=== PATIENT | female | born 1965 | race Caucasian/White ===

== ENCOUNTER 2016-03-19 11:47 | Emergency (ER) | payer MEDICARE, MEDICAID ==
--- NOTE | 2016-03-19 12:40 | REP ---
CT Head without contrast HISTORY: Infarction COMPARISON: 11/28/2015 There is no intraparenchymal hemorrhage, acute infarct, or midline shift. The ventricular system is normal in appearance. There is no extra cerebral collection. The 9 mm meningioma overlying the left frontal lobe at the vertex is not seen in the present examination. There is no fracture. The visualized sinuses are clear. IMPRESSION: There is no acute intracranial lesion. Signed by Grant Grajeda MD 03/19/2016 12:31 P
[2016-03-19] MEDS ORDERED: METOCLOPRAMIDE INJ 10MG/2ML VIAL (J2765) As Ordered ONE (12:44)
[2016-03-19] MEDS ORDERED: diphenhydrAMINE INJ 50MG/ML VIAL (J1200) As Ordered ONE (12:45)
[2016-03-19 12:50] LABS: VENOUS BASE EXCESS -2.4 (-2.0-2.0); VENOUS O2 SATURATION 96.3 % (60.0-80.0); VENOUS PARTIAL PRESSURE CO2 35.1 mmHg (38.0-50.0); VENOUS PARTIAL PRESSURE O2 78.9 mmHg (30.0-50.0); VENOUS STANDARD HCO3 22.5 MEQ/L; VENOUS TOTAL CO2 22.7 MEQ/L (24.0-28.0)
[2016-03-19 12:58] LABS: BASO # 0.1 K/mm3 (0.0-0.2); BASO % 1.1 % (0.0-1.0); EOS # 0.4 K/mm3 (0.0-0.50); EOS % 5.7 % (0.0-3.0); LARGE UNSTAINED CELL # 0.1 K/mm3 (0.0-0.4); LARGE UNSTAINED CELL % 1.6 % (0.0-4.0); LYMPH # 1.9 K/mm3 (1.5-4.5); LYMPH % 28.2 % (24.0-44.0); MEAN CORPUSCULAR HEMOGLOBIN 30.8 pg (27.0-33.0); MEAN CORPUSCULAR HGB CONC 32.2 g/dl (32.0-36.5); MEAN CORPUSCULAR VOLUME 95.8 fl (80.0-96.0); MONO # 0.3 K/mm3 (0.0-0.8); MONO % 4.3 % (0.0-5.0); NEUTROPHILS # 3.8 K/mm3 (1.8-7.7); NEUTROPHILS % 59.1 % (36.0-66.0); PLATELET COUNT, AUTOMATED 230 k/mm3 (150-450); RED CELL DISTRIBUTION WIDTH 12.8 % (11.5-14.5); WHITE BLOOD COUNT 6.5 K/mm3 (4.0-10.0)
[2016-03-19 13:18] LABS: ANION GAP 7 MEQ/L (8-16); BLOOD UREA NITROGEN 15 MG/DL (7-18); CALCIUM LEVEL 8.3 MG/DL (8.5-10.1); CARBON DIOXIDE LEVEL 24 MEQ/L (21-32); CHLORIDE LEVEL 104 MEQ/L (98-107); CREATININE FOR GFR 0.88 MG/DL (0.55-1.02); GLOMERULAR FILTRATION RATE > 60.0 (>51); POTASSIUM SERUM 4.2 MEQ/L (3.5-5.1); SODIUM LEVEL 135 MEQ/L (136-145)
[2016-03-19 13:23] LABS: GLUCOSE, FASTING 463 MG/DL (70-105)
[2016-03-19] MEDS ORDERED: MAGNESIUM SULFATE 1 GM/100 ML D5W BAG (10MG/ML) (J3475) As Ordered ONE (13:59)
--- NOTE | 2016-03-19 16:48 | REP ---
MRA BRAIN WITHOUT CONTRAST: HISTORY: Left hemiparesis. Comparison: 11/28/2015 3D [id number] MR angiography was performed at the level of the [place] of [place]. There is no aneurysm, arteriovenous malformation or atherosclerotic lesion. Major intracranial vessels are patent. The vertebral arteries are equal in size and patent. IMPRESSION:Normal MRA brain. Signed by Grant Grajeda MD 03/19/2016 04:58 P
--- NOTE | 2016-03-19 16:52 | REP ---
MR BRAIN WITHOUT CONTRAST: HISTORY: Left hemiparesis. COMPARISON: MR 11/28/[address] 03/19/2016. There are no areas of abnormal signal intensity in the brain. There is no intraparenchymal hemorrhage, infarct mass or midline shift. The ventricular system is normal in appearance. There is no extracerebral collection. A small meningoma is present overlying the left frontal lobe at the vertex. The meningoma measures 9 mm in transverse x 9 mm in AP dimensions and is unchanged in its size compared to the previous study. Minimal mucosal thickening is present in the left sphenoid sinus. IMPRESSION:1. There is no acute intracranial lesion. 2. There has been no change in size of the small meningioma overlying the left frontal lobe at the vertex. Signed by Grant Grajeda MD 03/19/2016 04:54 P
--- NOTE | 2016-03-19 17:29 | REP ---
MRA carotid without and with contrast: History: Infarction. Contrast: ProHance, 25 mL. Comparison: 08/06/2011 Unenhanced 2D TOF and contrast enhanced MR angiography were performed at the level of the carotid bifurcations. The distal common carotid arteries and origins of the external and internal carotid arteries are normal. There is no carotid stenosis. Moderate atherosclerotic disease involves the proximal vertebral arteries. The vertebral arteries are equal in size and patent. IMPRESSION: 1. There is no carotid stenosis, 2. Moderate atherosclerotic disease involves the proximal vertebral arteries. Signed by Grant Grajeda MD 03/20/2016 08:04 A
[2016-03-19] MEDS ORDERED: HumuLIN R (REGULAR) INSULIN (NovoLIN R) **100U/ML** PER UNIT As Ordered ONE (18:03)
--- NOTE | 2016-03-19 18:27 | EDDOCDS ---
Physician Documentation [facility] Name: Alia Sierra Age: 50 yrs Sex: Female : 1965 Arrival Date: 03/19/2016 Time: 11:47 Bed 15 Private MD: Nubia Ervin D Disposition: 03/19 18:13 Critical Care: Critical care not applicable. le Disposition: 03/19/16 18:11 Discharged to Home/Self Care. Impression: Hemiplegic migraine, not intractable, Type 1 diabetes mellitus with hyperglycemia, Diarrhea, unspecified. - Condition is Stable. - Discharge Instructions: Food Choices to Help Relieve Diarrhea, Adult, Diabetes and Sick Day Management, Diarrhea, Migraine Headache, Hyperglycemia. - Medication Reconciliation, Local Pharmacy Hours form. - Follow up: Nubia Ervin; When: Call to arrange an appointment; Reason: Recheck today's complaints, Continuance of care. Follow up: Rosalio Bejarano; When: Keep your scheduled appointment on 04/04; Reason: Recheck today's complaints, Continuance of care. - Problem is new. - Symptoms have improved. - Notes: Keep hydrated Check your blood sugar as soon as you get home and at bedtime, then per normal Return to the ED for any further concerns Historical: - Allergies: adhesive tape-silicones (Rash); Can't have steroids because it makes her go into DKA.; - Home Meds: 1. albuterol sulfate 90 mcg/actuation Inhl HFAA 1 puff every 4-6 hours as needed 2. amitriptyline 25 mg Oral tab 1 tab nightly 3. ammonium lactate 12 % Topical crea twice a day to bilateral feet 4. aspirin 81 mg Oral TbEC 1 tab once daily 5. buspirone 15 mg Oral tab 1 tab 2 times per day 6. ferrous sulfate 325 mg (65 mg iron) Oral tab daily 7. gabapentin 600 mg Oral tab 1 tab 3 times per day as needed 8. GlucaGen HypoKit 1 mg injection solr as needed 9. Humalog 100 unit/mL Sub-Q soln sliding scale three - six times daily 10. Lantus 100 unit/mL Sub-Q soln 26 unit daily 11. levalbuterol HCl 0.63 mg/3 mL inhalation nebu 3 mL every 8 hours as needed 12. lidocaine 5 % Topical ptmd 1 patch once daily 13. lisinopril 10 mg Oral tab 1 tab once daily 14. loratadine 10 mg Oral tab 1 tab nightly 15. Miralax 17 gram Oral pwpk 1 packet once daily as needed 16. omeprazole 40 mg oral cpDR 2 times per day 17. paroxetine HCl 40 mg Oral tab 1 tab once daily 18. Percocet 7.5-325 mg Oral tab 1 tab every 6 hours as needed 19. propranolol 20 mg Oral tab 1 tab 2 times per day 20. Reglan 10 mg Oral tab 1 tab three times a day 21. Singulair 10 mg Oral tab 1 tab once daily 22. sumatriptan succinate 6 mg/0.5 mL Sub-Q soln 0.5 mL as needed 23. trazodone 150 mg Oral tab 1 tab nightly 24. Zanaflex 4 mg Oral tab 1 tab every 8 hours as needed 25. Zofran (as hydrochloride) 4 mg Oral tab 2 tabs as needed - PMHx: Anxiety; Arthritis; Asthma; Celiac disease; Diabetes - IDDM: uncontrolled; Heart Murmur; Migraine Headaches; pseudo seizures; TIA; - PSHx: ; Appendectomy; Hiatal Hernia Repair; Bariatric Sleeve; Hysterectomy; Carpal Tunnel Repair- Bilateral; Deviated Septum Surgery; - Social history: Smoking status: Patient states former smoker of tobacco. No barriers to communication noted, The patient speaks fluent Thai, Speaks appropriately for age. - Family history: Not pertinent. - : The pt / caregiver states he / she is not on anticoagulants. Home medication list is obtained from the patient. - Exposure Risk Screening:: None identified. Vital Signs: 11:50 BP 153 / 90; Pulse 61; Resp 20; Temp 100.2(O); Pulse Ox 99% on R/A; Weight 76.2 kg / elp 167.99 lbs (R); Height 5 ft. 4 in. (162.56 cm) (R); Pain 8/10; 12:33 BP 145 / 80 (auto/); ead 12:35 Pulse 62 MON; Resp 18; Pulse Ox 96% on R/A; ead 18:13 BP 129 / 71 (auto/); ead 18:13 Pulse 70 MON; Resp 16; Temp 97.3; Pulse Ox 96% on R/A; Pain 5/10; ead 11:50 Body Mass Index 28.84 (76.20 kg, 162.56 cm) elp MDM: 12:15 Cook Fishing Vessel/Pulse Ox/q 15 min VS ordered. le 12:15 Accucheck ordered. le 12:15 IV Saline Lock ordered. le 12:15 Rhythm Strip to chart ordered. le 12:15 -Blood Culture (Adults Only), peripheral from different site, or from device/port/PICC le etc. if present ordered. 12:16 Basic Metabolic Profile Ordered. EDMS 12:16 CBC with Diff Ordered. EDMS 12:16 UA Ordered. EDMS 12:16 Acetone Level Ordered. EDMS 12:16 Venous Blood Gas (large pea green tube on ice) Ordered. EDMS 12:16 -Blood Culture Ordered. EDMS 12:17 Chest, 2 View (pa\E\lat) Ordered. EDMS 12:17 CT Head Without Contrast Ordered. EDMS 12:17 ECG WITH READING ER PHYS+CARDIAG ordered. EDMS 12:18 -Blood Culture (Adults Only), peripheral from different site, or from device/port/PICC lbd etc. if present complete. 12:20 BLOOD CULTURES Ordered. EDMS 12:35 NS 0.9% 1000 ml IV at bolus once ordered. le 12:36 diphenhydrAMINE 25 mg IVP once ordered. le 12:36 Metoclopramide 20 mg IV at 80 mg/hr once over 15 mins ordered. le 12:57 [facility] Payment Agreement was scanned into [employer] and attached to record. jp5 12:58 Financial registration complete. jp5 13:24 CBC with Diff Reviewed. le 13:24 Venous Blood Gas (large pea green tube on ice) Reviewed. le 13:24 CT Head Without Contrast Reviewed. le 13:26 Acetone Level Reviewed. le 13:26 Basic Metabolic Profile Reviewed. le 13:32 MRI Screening Tool - Place on chart, inform RN ordered. le 13:33 -MRA-Brain without contrast Ordered. EDMS 13:33 -MRI-Brain without Ordered. EDMS 13:40 MRA CAROTID W/O FOL WITH Ordered. EDMS 13:53 UA Reviewed. le 13:55 Magnesium Sulfate in D5W 2 grams IV at bolus once ordered. le 13:55 Accucheck ordered. le 14:01 MRI Screening Tool - Place on chart, inform RN complete. lbd 14:32 Fingerstick Blood Sugar Ordered. EDMS 17:11 CONSISTENT CARBOHYDRATE+DIET ordered. EDMS 17:14 Accucheck ordered. le 17:56 Fingerstick Blood Sugar Reviewed. le 17:56 -MRA-Brain without contrast Reviewed. le 17:56 -MRI-Brain without Reviewed. le 18:04 Insulin Regular Human 10 units Sub-Q once ordered. le Point of Care Testing: Blood Glucose: 14:25 Blood Glucose: 391 mg/dL; ead Ranges: Administered Medications: 12:53 Drug: diphenhydrAMINE 25 mg [diphenhydramine 50 mg/mL injection solution (0.5 mL)] ead Route: IVP; Site: right hand; 13:30 Follow up: Response: No Adverse Reaction; No significant change. ead 12:55 Drug: Metoclopramide 20 mg [metoclopramide 5 mg/mL injection solution] Route: IV; Rate: ead 80 mg/hr; Infused Over: 15 mins; Site: right hand; 13:30 Follow up: Response: No Adverse Reaction; No significant change.; IV Status: Completed ead infusion; IV Intake: 10ml 12:56 Drug: NS 0.9% 1000 ml [sodium chloride 0.9 % intravenous solution] Route: IV; Rate: ead bolus; Site: right hand; 14:19 Drug: Magnesium Sulfate in D5W 2 grams [magnesium sulfate 1 gram/100 mL in dextrose 5 % jc4 intravenous piggyback] Route: IV; Rate: bolus; Site: right hand; 15:23 Follow up: IV Status: Completed infusion; IV Intake: 100ml ; 1 gram completed infusion. ead second bag of 1 gram now infusing over 1 hour 18:18 Follow up: IV Status: Completed infusion; IV Intake: 100ml ; 2nd 1 gram bag completed ead infusion 18:04 CANCELLED (Other Intervention Used): Insulin Regular Human 10 units IVP once le 18:04 CANCELLED (Patient Refused): NS 0.9% 1000 ml IV at bolus once le 18:10 Drug: Insulin Regular Human 10 units [insulin regular human 100 unit/mL injection ead solution (0.1 mL)] {Co-Signature: [id number] (Radha Firoe RN).} Route: Sub-Q; Site: right upper arm; Signatures: Dispatcher [employer] EDAlisha Cosby, Strong Nitric Operator Unit lbd Agustín Ramos RN RN [id number] Lisa Delong, MANGLE ROLL OPERATOR MANGLE ROLL OPERATOR Suzie Rivas,RN RN Cristian Gallo jp5 Sophia Chester RN [id number] Radha Fiore RN [id number] The chart was reviewed and I authenticate all verbal orders and agree with the evaluation and treatment provided.Corrections: (The following items were deleted from the chart) 13:39 13:33 MRA-Carotid with contrast+MR ordered. EDMS EDMS 18:04 18:01 [employer] ordered. le le 18:04 18:01 Insulin Regular Human 10 units IVP once ordered. le le 18:04 18:01 NS 0.9% 1000 ml IV at bolus once ordered. le le Attachments: 12:57 [facility] [place] Agreement jp5 MTDD
--- NOTE | 2016-03-19 18:27 | EDDOCDS ---
Nurse's Notes [facility] Name: Alia Sierra Age: 50 yrs Sex: Female : 1965 Arrival Date: 03/19/2016 Time: 11:47 Bed 15 Private MD: Nubia Ervin D Diagnosis: Hemiplegic migraine, not intractable;Type 1 diabetes mellitus with hyperglycemia;Diarrhea, unspecified Presentation: 03/19 11:51 Presenting complaint: Patient states: Diarrhea since , awoke with headache and mlb1 left side paralysis this am states paralysis resolved at 0630n this reports diarrhea and headache remain FSBS HI since . The last date and time the patient was known to be well was was at 11:53 on March 19, 2016. No acute neurological deficit is noted. Pre-hospital glucose is not applicable to this patient. Adult Sepsis Screening: The patient does not have new or worsening altered mentation. Patient's respiratory rate is less than 22. Systolic blood pressure is greater than 100. Patient has a qSOFA score of 0- Negative Sepsis Screen. 11:51 Acuity: LI Level 3 mlb1 11:51 Method Of Arrival: Walkin/Carried/Asstd mlb1 11:54 Suicide/Homicide risk assessment- the patient denies having any suicidal and/or mlb1 homicidal ideations and does not present with any other emotional, behavioral or mental health complaints. Status: Patient is not a pump servicer or dependent. Transition of care: patient was received from a primary care office; Dr. Izquierdo . Triage Assessment: 11:59 The onset of the patients symptoms was more than three hours ago. General: Appears in mlb1 no apparent distress, Behavior is anxious, cooperative. Pain: Location: head Pain currently is 8 out of 10 on a pain scale. HIV screening NA for this visit Offered previously. Neurological: Level of Consciousness is awake, alert, Oriented to person, place, time, Moves all extremities. Full function Speech is normal, Facial symmetry appears normal, Facial symmetry: tongue is midline, Reports headache. Historical: - Allergies: adhesive tape-silicones (Rash); Can't have steroids because it makes her go into DKA.; - Home Meds: 1. albuterol sulfate 90 mcg/actuation Inhl HFAA 1 puff every 4-6 hours as needed 2. amitriptyline 25 mg Oral tab 1 tab nightly 3. ammonium lactate 12 % Topical crea twice a day to bilateral feet 4. aspirin 81 mg Oral TbEC 1 tab once daily 5. buspirone 15 mg Oral tab 1 tab 2 times per day 6. ferrous sulfate 325 mg (65 mg iron) Oral tab daily 7. gabapentin 600 mg Oral tab 1 tab 3 times per day as needed 8. GlucaGen HypoKit 1 mg injection solr as needed 9. Humalog 100 unit/mL Sub-Q soln sliding scale three - six times daily 10. Lantus 100 unit/mL Sub-Q soln 26 unit daily 11. levalbuterol HCl 0.63 mg/3 mL inhalation nebu 3 mL every 8 hours as needed 12. lidocaine 5 % Topical ptmd 1 patch once daily 13. lisinopril 10 mg Oral tab 1 tab once daily 14. loratadine 10 mg Oral tab 1 tab nightly 15. Miralax 17 gram Oral pwpk 1 packet once daily as needed 16. omeprazole 40 mg oral cpDR 2 times per day 17. paroxetine HCl 40 mg Oral tab 1 tab once daily 18. Percocet 7.5-325 mg Oral tab 1 tab every 6 hours as needed 19. propranolol 20 mg Oral tab 1 tab 2 times per day 20. Reglan 10 mg Oral tab 1 tab three times a day 21. Singulair 10 mg Oral tab 1 tab once daily 22. sumatriptan succinate 6 mg/0.5 mL Sub-Q soln 0.5 mL as needed 23. trazodone 150 mg Oral tab 1 tab nightly 24. Zanaflex 4 mg Oral tab 1 tab every 8 hours as needed 25. Zofran (as hydrochloride) 4 mg Oral tab 2 tabs as needed - PMHx: Anxiety; Arthritis; Asthma; Celiac disease; Diabetes - IDDM: uncontrolled; Heart Murmur; Migraine Headaches; pseudo seizures; TIA; - PSHx: ; Appendectomy; Hiatal Hernia Repair; Bariatric Sleeve; Hysterectomy; Carpal Tunnel Repair- Bilateral; Deviated Septum Surgery; - Social history: Smoking status: Patient states former smoker of tobacco. No barriers to communication noted, The patient speaks fluent Armenian, Speaks appropriately for age. - Family history: Not pertinent. - : The pt / caregiver states he / she is not on anticoagulants. Home medication list is obtained from the patient. - Exposure Risk Screening:: None identified. Screenin:26 Screening information is obtained from the patient. Fall risk: No risks identified. ead Assistance ADL's: requires no assistance with activities of daily living. Abuse/DV Screen: The patient / caregiver reports he/she is: not in a situation that causes fear, pain or injury. Nutritional screening: No deficits noted. home support is adequate. Assessment: 12:19 General: pt to CT via stretcher per strain technician. ead 12:56 General: Appears in no apparent distress, comfortable, well nourished, well groomed, ead Behavior is appropriate for age, cooperative, pleasant. Pain: Location: face Pain currently is 8 out of 10 on a pain scale. Neurological: Level of Consciousness is awake, alert, obeys commands, Oriented to person, place, time, Moves all extremities. Speech is normal, Facial symmetry appears normal, Numbness in left arm. Cardiovascular: Capillary refill < 3 seconds Rhythm is sinus rhythm No ectopy. Chest pain is denied. Respiratory: Airway is patent Respiratory effort is even, unlabored, Respiratory pattern is regular, symmetrical. Derm: Skin is pink, warm & dry. 13:12 General: pt ambulated to bathroom without difficulty. pt instructed to collect urine ead for UA. Gait is steady, strength is even bilaterally. . 14:00 General: Appears in no apparent distress, comfortable, Behavior is appropriate for age, ead cooperative. Neurological: Reports headache. Respiratory: Airway is patent Respiratory effort is even, unlabored. Derm: Skin is pink, warm & dry. 15:00 General: Appears in no apparent distress, comfortable, Behavior is appropriate for age, ead cooperative. Neurological: Level of Consciousness is awake, alert, obeys commands, Oriented to person, place, time. Respiratory: Airway is patent Respiratory effort is even, unlabored. Derm: Skin is pink, warm & dry. 17:30 General: Appears in no apparent distress, comfortable, Behavior is appropriate for age, ead cooperative. Respiratory: Airway is patent Respiratory effort is even, unlabored. Derm: Skin is pink, warm & dry. 18:25 General: Appears in no apparent distress, comfortable, Behavior is appropriate for age, ead cooperative. Neurological: Level of Consciousness is awake, alert, obeys commands, Oriented to person, place, time. Respiratory: Airway is patent Respiratory effort is even, unlabored, Respiratory pattern is regular, symmetrical, Denies shortness of breath. Derm: Skin is pink, warm & dry. Vital Signs: 11:50 BP 153 / 90; Pulse 61; Resp 20; Temp 100.2(O); Pulse Ox 99% on R/A; Weight 76.2 kg (R); elp Height 5 ft. 4 in. (162.56 cm) (R); Pain 8/10; 12:33 BP 145 / 80 (auto/); ead 12:35 Pulse 62 MON; Resp 18; Pulse Ox 96% on R/A; ead 18:13 BP 129 / 71 (auto/); ead 18:13 Pulse 70 MON; Resp 16; Temp 97.3; Pulse Ox 96% on R/A; Pain 5/10; ead 11:50 Body Mass Index 28.84 (76.20 kg, 162.56 cm) elp Vitals: 11:50 Log In Time: March 19, 2016 at 11:48. RN notified that patient meets Red Flag elp criteria. ED Course: 11:49 Patient visited by Cara Abebe PCA. elp 11:49 Patient moved to Waiting elp 11:50 Nubia Ervin is Private Physician. elp 11:51 Patient visited by Cara Abebe PCA. elp 11:51 Patient visited by Agustín Ramos, JOSEE. mlb1 11:51 Patient moved to Pre RCE elp 11:54 Triage Initiated mlb1 12:00 Patient visited by Agustín Ramos, JOSEE. mlb1 12:00 Suzie Singh,JOSEE is Primary Nurse. mlb1 12:00 Patient moved to 15 mlb1 12:06 [facility]. le 12:15 Patient visited by Lisa Delong FNP. le 12:15 Patient visited by Lisa Delong FNP. le 12:34 air sampling and monitoring on. Pulse ox on. NIBP on. lr2 12:34 EKG done. (by ED staff). lr2 12:35 Patient visited by Ariadne Lucia. lr2 12:40 Inserted peripheral IV: 20gauge IV in right hand and blood collected. Patient tolerated ead the procedure well. 12:43 -Blood Culture Sent. ead 12:43 Venous Blood Gas (large pea green tube on ice) Sent. ead 12:43 Acetone Level Sent. ead 12:43 CBC with Diff Sent. ead 12:43 Basic Metabolic Profile Sent. ead 12:55 Patient visited by Suzie Singh,JOSEE. ead 12:56 Patient visited by Ariadne Lucia. lr2 12:56 BLOOD CULTURES Sent. ead 12:57 [facility] [place] Agreement was scanned into Cardiac Guard and attached to record. jp5 13:12 Patient visited by Suzie Singh RN. ead 13:12 CT Head Without Contrast Returned. EDMS 13:21 UA Sent. ead 13:49 Patient visited by Lisa Delong FNP. le 14:26 Patient visited by Suzie Singh,JOSEE. ead 15:19 Patient visited by Suzie Singh,JOSEE. ead 16:00 Patient moved to MRI ead 16:01 Patient visited by Suzie Singh,JOSEE. ead 16:56 Patient visited by Suzie Singh,JOSEE. ead 16:56 Patient moved to 15 ead 17:20 -MRA-Brain without contrast Returned. EDMS 17:20 -MRI-Brain without Returned. EDMS 17:54 Patient visited by Suzie Singh,JOSEE. ead 18:10 Nubia Ervin is Referral Physician. le 18:10 Rosalio Bejarano is Referral Physician. le 18:14 MRA CAROTID W/O FOL WITH Returned. EDMS 18:24 Discontinued lock intact, bleeding controlled, pressure dressing applied, No ead redness/swelling at site. No procedures done that require assistance. 18:26 The patient / caregiver is instructed regarding the plan of care and ED course. ead Administered Medications: 12:53 Drug: diphenhydrAMINE 25 mg [diphenhydramine 50 mg/mL injection solution (0.5 mL)] ead Route: IVP; Site: right hand; 13:30 Follow up: Response: No Adverse Reaction; No significant change. ead 12:55 Drug: Metoclopramide 20 mg [metoclopramide 5 mg/mL injection solution] Route: IV; Rate: ead 80 mg/hr; Infused Over: 15 mins; Site: right hand; 13:30 Follow up: Response: No Adverse Reaction; No significant change.; IV Status: Completed ead infusion; IV Intake: 10ml 12:56 Drug: NS 0.9% 1000 ml [sodium chloride 0.9 % intravenous solution] Route: IV; Rate: ead bolus; Site: right hand; 14:19 Drug: Magnesium Sulfate in D5W 2 grams [magnesium sulfate 1 gram/100 mL in dextrose 5 % jc4 intravenous piggyback] Route: IV; Rate: bolus; Site: right hand; 15:23 Follow up: IV Status: Completed infusion; IV Intake: 100ml ; 1 gram completed infusion. ead second bag of 1 gram now infusing over 1 hour 18:18 Follow up: IV Status: Completed infusion; IV Intake: 100ml ; 2nd 1 gram bag completed ead infusion 18:04 CANCELLED (Other Intervention Used): Insulin Regular Human 10 units IVP once le 18:04 CANCELLED (Patient Refused): NS 0.9% 1000 ml IV at bolus once le 18:10 Drug: Insulin Regular Human 10 units [insulin regular human 100 unit/mL injection ead solution (0.1 mL)] {Co-Signature: ja5 (Radha Fiore RN).} Route: Sub-Q; Site: right upper arm; Point of Care Testing: Blood Glucose: 14:25 Blood Glucose: 391 mg/dL; ead Ranges: Intake: 13:30 IV: 10.00ml; Total: 10.00ml. ead 15:23 IV: 100.00ml; Total: 110.00ml. ead 18:18 IV: 100.00ml; Total: 210.00ml. ead Order Results: Lab Order: Basic Metabolic Profile; [facility] 03/19/16 12:40 Test: GLUCOSE, FASTING; Value: 463; Range: 70-105; Abnormal: Above upper panic limits; Units: MG/DL; Status: F Test: BLOOD UREA NITROGEN; Value: 15; Range: 7-18; Units: MG/DL; Status: F Test: CREATININE FOR GFR; Value: 0.88; Range: 0.55-1.02; Units: MG/DL; Status: F Test: GLOMERULAR FILTRATION RATE; Value: > 60.0; Range: >51; Status: F Test: SODIUM LEVEL; Value: 135; Range: 136-145; Abnormal: Below low normal; Units: MEQ/L; Status: F Test: POTASSIUM SERUM; Value: 4.2; Range: 3.5-5.1; Units: MEQ/L; Status: F Test: CHLORIDE LEVEL; Value: 104; Range: 98-107; Units: MEQ/L; Status: F Test: CARBON DIOXIDE LEVEL; Value: 24; Range: 21-32; Units: MEQ/L; Status: F Test: ANION GAP; Value: 7; Range: 8-16; Abnormal: Below low normal; Units: MEQ/L; Status: F Test: CALCIUM LEVEL; Value: 8.3; Range: 8.5-10.1; Abnormal: Below low normal; Units: MG/DL; Status: F Test Note: ; Units are mL/min/1.73 m2 Chronic Kidney Disease Staging per NKF: Stage I & II GFR >=60 Normal to Mildly Decreased Stage III GFR 30-59 Moderately Decreased Stage IV GFR 15-29 Severely Decreased Stage V GFR <15 Very Little GFR Left ESRD GFR <15 on RAILROAD AUDITOR Lab Order: CBC with Diff; SPEC'M 03/19/16 12:40 Test: WHITE BLOOD COUNT; Value: 6.5; Range: 4.0-10.0; Units: K/mm3; Status: F Test: RED BLOOD COUNT; Value: 4.10; Range: 4.00-5.40; Units: M/mm3; Status: F Test: HEMOGLOBIN; Value: 12.6; Range: 12.0-16.0; Units: g/dl; Status: F Test: HEMATOCRIT; Value: 39.2; Range: 36.0-47.0; Units: %; Status: F Test: MEAN CORPUSCULAR VOLUME; Value: 95.8; Range: 80.0-96.0; Units: fl; Status: F Test: MEAN CORPUSCULAR HEMOGLOBIN; Value: 30.8; Range: 27.0-33.0; Units: pg; Status: F Test: MEAN CORPUSCULAR HGB CONC; Value: 32.2; Range: 32.0-36.5; Units: g/dl; Status: F Test: RED CELL DISTRIBUTION WIDTH; Value: 12.8; Range: 11.5-14.5; Units: %; Status: F Test: PLATELET COUNT, AUTOMATED; Value: 230; Range: 150-450; Units: k/mm3; Status: F Test: NEUTROPHILS %; Value: 59.1; Range: 36.0-66.0; Units: %; Status: F Test: LYMPH %; Value: 28.2; Range: 24.0-44.0; Units: %; Status: F Test: MONO %; Value: 4.3; Range: 0.0-5.0; Units: %; Status: F Test: EOS %; Value: 5.7; Range: 0.0-3.0; Abnormal: Above high normal; Units: %; Status: F Test: BASO %; Value: 1.1; Range: 0.0-1.0; Abnormal: Above high normal; Units: %; Status: F Test: LARGE UNSTAINED CELL %; Value: 1.6; Range: 0.0-4.0; Units: %; Status: F Test: NEUTROPHILS #; Value: 3.8; Range: 1.8-7.7; Units: K/mm3; Status: F Test: LYMPH #; Value: 1.9; Range: 1.5-4.5; Units: K/mm3; Status: F Test: MONO #; Value: 0.3; Range: 0.0-0.8; Units: K/mm3; Status: F Test: EOS #; Value: 0.4; Range: 0.0-0.50; Units: K/mm3; Status: F Test: BASO #; Value: 0.1; Range: 0.0-0.2; Units: K/mm3; Status: F Test: LARGE UNSTAINED CELL #; Value: 0.1; Range: 0.0-0.4; Units: K/mm3; Status: F Lab Order: UA; SPEC'M 03/19/16 13:18 Test: APPEARANCE, URINE; Value: CLEAR; Range: CLEAR; Status: F Test: COLOR, URINE; Value: STRAW; Range: YELLOW; Status: F Test: PH,URINE; Value: 5.0; Range: 5.0-9.0; Units: UNITS; Status: F Test: SPECIFIC GRAVITY URINE AUTO; Value: 1.018; Range: 1.002-1.035; Status: F Test: PROTEIN, URINE AUTO; Value: NEGATIVE; Range: NEGATIVE; Units: mg/dL; Status: F Test: GLUCOSE, URINE (UA) AUTO; Value: 3+; Range: NEGATIVE; Abnormal: Above high normal; Units: mg/dL; Status: F Test: KETONE, URINE AUTO; Value: NEGATIVE; Range: NEGATIVE; Units: mg/dL; Status: F Test: UROBILINOGEN, URINE AUTO; Value: 0.2; Range: 0.0-2.0; Units: mg/dL; Status: F Test: BILIRUBIN, URINE AUTO; Value: NEGATIVE; Range: NEGATIVE; Status: F Test: NITRITE, URINE AUTO; Value: NEGATIVE; Range: NEGATIVE; Status: F Test: LEUKOCYTE ESTERASE, URINE AUTO; Value: NEGATIVE; Range: NEGATIVE; Status: F Test: BLOOD, URINE BLOOD; Value: NEGATIVE; Range: NEGATIVE; Status: F Test: WBC, URINE AUTO; Value: 0; Range: 0-3; Units: /HPF; Status: F Test: RBC, URINE AUTO; Value: 3; Range: 0-3; Units: /HPF; Status: F Test: BACTERIA, URINE AUTO; Value: NEGATIVE; Range: NEGATIVE; Status: F Test: SQUAMOUS EPITHELIAL CELL UR AU; Value: 0; Range: 0-6; Units: /HPF; Status: F Test: MUCUS, URINE; Value: SMALL; Range: NEGATIVE; Status: F Test: HYALINE CAST, URINE AUTO; Value: 0; Range: 0-1; Units: /LPF; Status: F Lab Order: Acetone Level; SPEC'M 03/19/16 12:40 Test: ACETONE/KETONE; Value: 3.34; Range: <2.81; Abnormal: Above high normal; Units: MG/DL; Status: F Lab Order: Venous Blood Gas (large pea green tube on ice); SPEC'M 03/19/16 12:40 Test: VENOUS PH; Value: 7.408; Range: 7.330-7.430; Units: UNITS; Status: F Test: VENOUS PARTIAL PRESSURE CO2; Value: 35.1; Range: 38.0-50.0; Abnormal: Below low normal; Units: mmHg; Status: F Test: VENOUS PARTIAL PRESSURE O2; Value: 78.9; Range: 30.0-50.0; Abnormal: Above high normal; Units: mmHg; Status: F Test: VENOUS TOTAL CO2; Value: 22.7; Range: 24.0-28.0; Abnormal: Below low normal; Units: MEQ/L; Status: F Test: VENOUS HCO3; Value: 21.6; Range: 23.0-27.0; Abnormal: Below low normal; Units: MEQ/L; Status: F Test: VENOUS BASE EXCESS; Value: -2.4; Range: -2.0-2.0; Abnormal: Below low normal; Status: F Test: VENOUS STANDARD HCO3; Value: 22.5; Units: MEQ/L; Status: F Test: VENOUS O2 SATURATION; Value: 96.3; Range: 60.0-80.0; Abnormal: Above high normal; Units: %; Status: F Lab Order: Fingerstick Blood Sugar; SPEC'M 03/19/16 14:24 Test: BEDSIDE GLUCOSE; Value: 391; Range: 70-105; Abnormal: Above high normal; Units: MG/DL; Status: F Radiology Order: CT Head Without Contrast Test: CT Head Without Contrast REASON FOR EXAMINATION: CVA >4.5hrs; CT Head without contrast; ; HISTORY: Infarction; ; COMPARISON: 11/28/2015; ; There is no intraparenchymal hemorrhage, acute infarct, or midline shift. The; ventricular system is normal in appearance. There is no extra cerebral; collection. The 9 mm meningioma overlying the left frontal lobe at the vertex is; not seen in the present examination. There is no fracture. The visualized; sinuses are clear.; ; IMPRESSION: There is no acute intracranial lesion.; ; ; ; ; Signed by; Grant Grajeda MD 03/19/2016 12:31 P; Radiology Order: -MRA-Brain without contrast Test: -MRA-Brain without contrast REASON FOR EXAMINATION: l hemiparesis;CVA >4.5hrs; MRA BRAIN WITHOUT CONTRAST:; ; HISTORY: Left hemiparesis.; ; Comparison: 11/28/2015; ; 3D [id number]-[id number] MR angiography was performed at the level of the [place] of; [place].; ; There is no aneurysm, arteriovenous malformation or atherosclerotic lesion. Major; intracranial vessels are patent. The vertebral arteries are equal in size and; patent.; ; IMPRESSION:Normal MRA brain.; ; ; Signed by; Grant Grajeda MD 03/19/2016 04:58 P; Radiology Order: -MRI-Brain without Test: -MRI-Brain without REASON FOR EXAMINATION: l hemiparesis;CVA >4.5hrs; MR BRAIN WITHOUT CONTRAST:; ; HISTORY: Left hemiparesis.; ; COMPARISON: MR 11/28/[address] 03/19/2016.; ; There are no areas of abnormal signal intensity in the brain. There is no; intraparenchymal hemorrhage, infarct mass or midline shift. The ventricular; system is normal in appearance. There is no extracerebral collection. A small; meningoma is present overlying the left frontal lobe at the vertex. The meningoma; measures 9 mm in transverse x 9 mm in AP dimensions and is unchanged in its size; compared to the previous study. Minimal mucosal thickening is present in the left; sphenoid sinus.; ; IMPRESSION:1. There is no acute intracranial lesion.; ; 2. There has been no change in size of the small meningioma overlying the left; frontal lobe at the vertex.; ; ; Signed by; Grant Grajeda MD 03/19/2016 04:54 P; Radiology Order: MRA CAROTID W/O FOL WITH Test: MRA CAROTID W/O FOL WITH REASON FOR EXAMINATION: CVA >4.5hrs; MRA carotid without and with contrast:; ; History: Infarction.; ; Contrast: ProHance, 25 mL.; ; Comparison: 08/06/2011; ; Unenhanced 2D TOF and contrast enhanced MR angiography were performed at the; level of the carotid bifurcations.; ; The distal common carotid arteries and origins of the external and internal; carotid arteries are normal. There is no carotid stenosis. Moderate; atherosclerotic disease involves the proximal vertebral arteries. The vertebral; arteries are equal in size and patent.; ; IMPRESSION:; 1. There is no carotid stenosis,; 2. Mild atherosclerotic disease involves the proximal vertebral arteries.; ; ; ; Unreviewed; Outcome: 18:11 Discharge ordered by Provider. le 18:26 Discharge Assessment: Patient awake and alert. obeys commands, Oriented to person, ead place and time. patient administered narcotics - no. The following High Risk Discharge criteria are identified: None. Discharged to home ambulatory, with family. Condition: improved. Discharge instructions given to patient, Instructed on discharge instructions, follow up and referral plans. Demonstrated understanding of instructions, Pt was receptive of discharge instructions/ teaching. CT Study completed. MRI Study completed. Property sent home with patient. 18:27 Patient left the ED. ead Signatures: Dispatcher [employer] EDMS Agustín Ramos RN RN mlb1 Lisa Delong, TOUCH UP EDGER Sophia Farmer RN RN [id number] Cara Abebe PCA PCA elp Dunaway, Emily,RN RN Cristian Gallo jp5 Ariadne Lucia lr2 Radha Fiore RN ja5 MTDD
--- NOTE | 2016-03-20 21:36 | ECGEPIP ---
Stationary ECG Study [facility] - ED Test Date: 2016-03-19 Pat Name: ANA SCHWAB Department: Room: - Gender: F Rv Technician: bhupendra : 1965 Requested By: LORRAINE ROSAS Order Number: [id number] Reading MD: Dena Orantes Measurements Intervals [place] Rate: 61 P: -16 VT: 199 QRS: 47 QRSD: 85 T: 41 QT: 399 QTc: 405 Interpretive Statements SINUS RHYTHM WITH SINUS ARRHYTHMIA DECREASED RATE 11/28/15 Electronically Signed On 03-20-2016 21:36:41 EST by Dena Orantes
--- NOTE | 2016-03-21 19:28 | EDDOCDS ---
Physician Documentation [facility] Name: Alia Sierra Age: 50 yrs Sex: Female : 1965 Arrival Date: 03/19/2016 Time: 11:47 Bed 15 Private MD: Nubia Ervin D Disposition: 03/19 18:13 Critical Care: Critical care not applicable. le Disposition: 03/19/16 18:11 Discharged to Home/Self Care. Impression: Hemiplegic migraine, not intractable, Type 1 diabetes mellitus with hyperglycemia, Diarrhea, unspecified. - Condition is Stable. - Discharge Instructions: Food Choices to Help Relieve Diarrhea, Adult, Diabetes and Sick Day Management, Diarrhea, Migraine Headache, Hyperglycemia. - Medication Reconciliation, Local Pharmacy Hours form. - Follow up: Nubia Ervin; When: Call to arrange an appointment; Reason: Recheck today's complaints, Continuance of care. Follow up: Rosalio Bejarano; When: Keep your scheduled appointment on 04/04; Reason: Recheck today's complaints, Continuance of care. - Problem is new. - Symptoms have improved. - Notes: Keep hydrated Check your blood sugar as soon as you get home and at bedtime, then per normal Return to the ED for any further concerns Historical: - Allergies: adhesive tape-silicones (Rash); Can't have steroids because it makes her go into DKA.; - Home Meds: 1. albuterol sulfate 90 mcg/actuation Inhl HFAA 1 puff every 4-6 hours as needed 2. amitriptyline 25 mg Oral tab 1 tab nightly 3. ammonium lactate 12 % Topical crea twice a day to bilateral feet 4. aspirin 81 mg Oral TbEC 1 tab once daily 5. buspirone 15 mg Oral tab 1 tab 2 times per day 6. ferrous sulfate 325 mg (65 mg iron) Oral tab daily 7. gabapentin 600 mg Oral tab 1 tab 3 times per day as needed 8. GlucaGen HypoKit 1 mg injection solr as needed 9. Humalog 100 unit/mL Sub-Q soln sliding scale three - six times daily 10. Lantus 100 unit/mL Sub-Q soln 26 unit daily 11. levalbuterol HCl 0.63 mg/3 mL inhalation nebu 3 mL every 8 hours as needed 12. lidocaine 5 % Topical ptmd 1 patch once daily 13. lisinopril 10 mg Oral tab 1 tab once daily 14. loratadine 10 mg Oral tab 1 tab nightly 15. Miralax 17 gram Oral pwpk 1 packet once daily as needed 16. omeprazole 40 mg oral cpDR 2 times per day 17. paroxetine HCl 40 mg Oral tab 1 tab once daily 18. Percocet 7.5-325 mg Oral tab 1 tab every 6 hours as needed 19. propranolol 20 mg Oral tab 1 tab 2 times per day 20. Reglan 10 mg Oral tab 1 tab three times a day 21. Singulair 10 mg Oral tab 1 tab once daily 22. sumatriptan succinate 6 mg/0.5 mL Sub-Q soln 0.5 mL as needed 23. trazodone 150 mg Oral tab 1 tab nightly 24. Zanaflex 4 mg Oral tab 1 tab every 8 hours as needed 25. Zofran (as hydrochloride) 4 mg Oral tab 2 tabs as needed - PMHx: Anxiety; Arthritis; Asthma; Celiac disease; Diabetes - IDDM: uncontrolled; Heart Murmur; Migraine Headaches; pseudo seizures; TIA; - PSHx: ; Appendectomy; Hiatal Hernia Repair; Bariatric Sleeve; Hysterectomy; Carpal Tunnel Repair- Bilateral; Deviated Septum Surgery; - Social history: Smoking status: Patient states former smoker of tobacco. No barriers to communication noted, The patient speaks fluent [place], Speaks appropriately for age. - Family history: Not pertinent. - : The pt / caregiver states he / she is not on anticoagulants. Home medication list is obtained from the patient. - Exposure Risk Screening:: None identified. Vital Signs: 11:50 BP 153 / 90; Pulse 61; Resp 20; Temp 100.2(O); Pulse Ox 99% on R/A; Weight 76.2 kg / elp 167.99 lbs (R); Height 5 ft. 4 in. (162.56 cm) (R); Pain 8/10; 12:33 BP 145 / 80 (auto/); ead 12:35 Pulse 62 MON; Resp 18; Pulse Ox 96% on R/A; ead 18:13 BP 129 / 71 (auto/); ead 18:13 Pulse 70 MON; Resp 16; Temp 97.3; Pulse Ox 96% on R/A; Pain 5/10; ead 11:50 Body Mass Index 28.84 (76.20 kg, 162.56 cm) elp MDM: 12:15 Health Information Coder/Pulse Ox/q 15 min VS ordered. le 12:15 Accucheck ordered. le 12:15 IV Saline Lock ordered. le 12:15 Rhythm Strip to chart ordered. le 12:15 -Blood Culture (Adults Only), peripheral from different site, or from device/port/PICC le etc. if present ordered. 12:16 Basic Metabolic Profile Ordered. EDMS 12:16 CBC with Diff Ordered. EDMS 12:16 UA Ordered. EDMS 12:16 Acetone Level Ordered. EDMS 12:16 Venous Blood Gas (large pea green tube on ice) Ordered. EDMS 12:16 -Blood Culture Ordered. EDMS 12:17 Chest, 2 View (pa\E\lat) Ordered. EDMS 12:17 CT Head Without Contrast Ordered. EDMS 12:17 ECG WITH READING ER PHYS+CARDIAG ordered. EDMS 12:18 -Blood Culture (Adults Only), peripheral from different site, or from device/port/PICC lbd etc. if present complete. 12:20 BLOOD CULTURES Ordered. EDMS 12:35 NS 0.9% 1000 ml IV at bolus once ordered. le 12:36 diphenhydrAMINE 25 mg IVP once ordered. le 12:36 Metoclopramide 20 mg IV at 80 mg/hr once over 15 mins ordered. le 12:57 [facility] Payment Agreement was scanned into [employer] and attached to record. jp5 12:58 Financial registration complete. jp5 13:24 CBC with Diff Reviewed. le 13:24 Venous Blood Gas (large pea green tube on ice) Reviewed. le 13:24 CT Head Without Contrast Reviewed. le 13:26 Acetone Level Reviewed. le 13:26 Basic Metabolic Profile Reviewed. le 13:32 MRI Screening Tool - Place on chart, inform RN ordered. le 13:33 -MRA-Brain without contrast Ordered. EDMS 13:33 -MRI-Brain without Ordered. EDMS 13:40 MRA CAROTID W/O FOL WITH Ordered. EDMS 13:53 UA Reviewed. le 13:55 Magnesium Sulfate in D5W 2 grams IV at bolus once ordered. le 13:55 Accucheck ordered. le 14:01 MRI Screening Tool - Place on chart, inform RN complete. lbd 14:32 Fingerstick Blood Sugar Ordered. EDMS 17:11 CONSISTENT CARBOHYDRATE+DIET ordered. EDMS 17:14 Accucheck ordered. le 17:56 Fingerstick Blood Sugar Reviewed. le 17:56 -MRA-Brain without contrast Reviewed. le 17:56 -MRI-Brain without Reviewed. le 18:04 Insulin Regular Human 10 units Sub-Q once ordered. le 02/08 10:49 Fingerstick Blood Sugar Ordered. EDMS 14:10 T-Sheet-- Draft Copy was scanned into [employer] and attached to record. gb 14:10 ECG/EKG was scanned into [employer] and attached to record. gb Point of Care Testing: Blood Glucose: 02 14:25 Blood Glucose: 391 mg/dL; ead Ranges: Administered Medications: 12:53 Drug: diphenhydrAMINE 25 mg [diphenhydramine 50 mg/mL injection solution (0.5 mL)] ead Route: IVP; Site: right hand; 13:30 Follow up: Response: No Adverse Reaction; No significant change. ead 12:55 Drug: Metoclopramide 20 mg [metoclopramide 5 mg/mL injection solution] Route: IV; Rate: ead 80 mg/hr; Infused Over: 15 mins; Site: right hand; 13:30 Follow up: Response: No Adverse Reaction; No significant change.; IV Status: Completed ead infusion; IV Intake: 10ml 12:56 Drug: NS 0.9% 1000 ml [sodium chloride 0.9 % intravenous solution] Route: IV; Rate: ead bolus; Site: right hand; 14:19 Drug: Magnesium Sulfate in D5W 2 grams [magnesium sulfate 1 gram/100 mL in dextrose 5 % jc4 intravenous piggyback] Route: IV; Rate: bolus; Site: right hand; 15:23 Follow up: IV Status: Completed infusion; IV Intake: 100ml ; 1 gram completed infusion. ead second bag of 1 gram now infusing over 1 hour 18:18 Follow up: IV Status: Completed infusion; IV Intake: 100ml ; 2nd 1 gram bag completed ead infusion 18:04 CANCELLED (Other Intervention Used): Insulin Regular Human 10 units IVP once le 18:04 CANCELLED (Patient Refused): NS 0.9% 1000 ml IV at bolus once le 18:10 Drug: Insulin Regular Human 10 units [insulin regular human 100 unit/mL injection ead solution (0.1 mL)] {Co-Signature: manuel (Radha Fiore RN).} Route: Sub-Q; Site: right upper arm; Signatures: Dispatcher [employer] EDMS Rachael Alisha, Lime Sludge Mixer Unit lbd Ritika Hammer, Reg Reg gb RichardAgustín, RN RN [id number] Lisa Delong, SHUTTLE FITTING SUPERVISOR SHUTTLE FITTING SUPERVISOR Suzie Rivas,RN RN Cristian Gallo jp5 Sophia Chester RN [id number] Radha Fiore RN [id number] The chart was reviewed and I authenticate all verbal orders and agree with the evaluation and treatment provided.Corrections: (The following items were deleted from the chart) 13:39 13:33 MRA-Carotid with contrast+MR ordered. EDMS EDMS 18:04 18:01 [employer] ordered. le le 18:04 18:01 Insulin Regular Human 10 units IVP once ordered. le le 18:04 18:01 NS 0.9% 1000 ml IV at bolus once ordered. le le Attachments: 12:57 [facility] Payment Agreement jp5 03/20 14:10 T-Sheet-- Draft Copy gb 14:10 ECG/EKG Chart Complete MTDD
--- NOTE | 2016-03-21 19:28 | EDDOCDS ---
Nurse's Notes [facility] Name: Alia Sierra Age: 50 yrs Sex: Female : 1965 Arrival Date: 03/19/2016 Time: 11:47 Bed 15 Private MD: Nubia Ervin D Diagnosis: Hemiplegic migraine, not intractable;Type 1 diabetes mellitus with hyperglycemia;Diarrhea, unspecified Presentation: 03/19 11:51 Presenting complaint: Patient states: Diarrhea since , awoke with headache and mlb1 left side paralysis this am states paralysis resolved at 0630n this reports diarrhea and headache remain FSBS HI since . The last date and time the patient was known to be well was was at 11:53 on March 19, 2016. No acute neurological deficit is noted. Pre-hospital glucose is not applicable to this patient. Adult Sepsis Screening: The patient does not have new or worsening altered mentation. Patient's respiratory rate is less than 22. Systolic blood pressure is greater than 100. Patient has a qSOFA score of 0- Negative Sepsis Screen. 11:51 Acuity: LI Level 3 mlb1 11:51 Method Of Arrival: Walkin/Carried/Asstd mlb1 11:54 Suicide/Homicide risk assessment- the patient denies having any suicidal and/or mlb1 homicidal ideations and does not present with any other emotional, behavioral or mental health complaints. Status: Patient is not a financial services associate or dependent. Transition of care: patient was received from a primary care office; Dr. Izquierdo . Triage Assessment: 11:59 The onset of the patients symptoms was more than three hours ago. General: Appears in mlb1 no apparent distress, Behavior is anxious, cooperative. Pain: Location: head Pain currently is 8 out of 10 on a pain scale. HIV screening NA for this visit Offered previously. Neurological: Level of Consciousness is awake, alert, Oriented to person, place, time, Moves all extremities. Full function Speech is normal, Facial symmetry appears normal, Facial symmetry: tongue is midline, Reports headache. Historical: - Allergies: adhesive tape-silicones (Rash); Can't have steroids because it makes her go into DKA.; - Home Meds: 1. albuterol sulfate 90 mcg/actuation Inhl HFAA 1 puff every 4-6 hours as needed 2. amitriptyline 25 mg Oral tab 1 tab nightly 3. ammonium lactate 12 % Topical crea twice a day to bilateral feet 4. aspirin 81 mg Oral TbEC 1 tab once daily 5. buspirone 15 mg Oral tab 1 tab 2 times per day 6. ferrous sulfate 325 mg (65 mg iron) Oral tab daily 7. gabapentin 600 mg Oral tab 1 tab 3 times per day as needed 8. GlucaGen HypoKit 1 mg injection solr as needed 9. Humalog 100 unit/mL Sub-Q soln sliding scale three - six times daily 10. Lantus 100 unit/mL Sub-Q soln 26 unit daily 11. levalbuterol HCl 0.63 mg/3 mL inhalation nebu 3 mL every 8 hours as needed 12. lidocaine 5 % Topical ptmd 1 patch once daily 13. lisinopril 10 mg Oral tab 1 tab once daily 14. loratadine 10 mg Oral tab 1 tab nightly 15. Miralax 17 gram Oral pwpk 1 packet once daily as needed 16. omeprazole 40 mg oral cpDR 2 times per day 17. paroxetine HCl 40 mg Oral tab 1 tab once daily 18. Percocet 7.5-325 mg Oral tab 1 tab every 6 hours as needed 19. propranolol 20 mg Oral tab 1 tab 2 times per day 20. Reglan 10 mg Oral tab 1 tab three times a day 21. Singulair 10 mg Oral tab 1 tab once daily 22. sumatriptan succinate 6 mg/0.5 mL Sub-Q soln 0.5 mL as needed 23. trazodone 150 mg Oral tab 1 tab nightly 24. Zanaflex 4 mg Oral tab 1 tab every 8 hours as needed 25. Zofran (as hydrochloride) 4 mg Oral tab 2 tabs as needed - PMHx: Anxiety; Arthritis; Asthma; Celiac disease; Diabetes - IDDM: uncontrolled; Heart Murmur; Migraine Headaches; pseudo seizures; TIA; - PSHx: ; Appendectomy; Hiatal Hernia Repair; Bariatric Sleeve; Hysterectomy; Carpal Tunnel Repair- Bilateral; Deviated Septum Surgery; - Social history: Smoking status: Patient states former smoker of tobacco. No barriers to communication noted, The patient speaks fluent Slovenian, Speaks appropriately for age. - Family history: Not pertinent. - : The pt / caregiver states he / she is not on anticoagulants. Home medication list is obtained from the patient. - Exposure Risk Screening:: None identified. Screenin:26 Screening information is obtained from the patient. Fall risk: No risks identified. ead Assistance ADL's: requires no assistance with activities of daily living. Abuse/DV Screen: The patient / caregiver reports he/she is: not in a situation that causes fear, pain or injury. Nutritional screening: No deficits noted. home support is adequate. Assessment: 12:19 General: pt to CT via stretcher per field service technician poultry. ead 12:56 General: Appears in no apparent distress, comfortable, well nourished, well groomed, ead Behavior is appropriate for age, cooperative, pleasant. Pain: Location: face Pain currently is 8 out of 10 on a pain scale. Neurological: Level of Consciousness is awake, alert, obeys commands, Oriented to person, place, time, Moves all extremities. Speech is normal, Facial symmetry appears normal, Numbness in left arm. Cardiovascular: Capillary refill < 3 seconds Rhythm is sinus rhythm No ectopy. Chest pain is denied. Respiratory: Airway is patent Respiratory effort is even, unlabored, Respiratory pattern is regular, symmetrical. Derm: Skin is pink, warm & dry. 13:12 General: pt ambulated to bathroom without difficulty. pt instructed to collect urine ead for UA. Gait is steady, strength is even bilaterally. . 14:00 General: Appears in no apparent distress, comfortable, Behavior is appropriate for age, ead cooperative. Neurological: Reports headache. Respiratory: Airway is patent Respiratory effort is even, unlabored. Derm: Skin is pink, warm & dry. 15:00 General: Appears in no apparent distress, comfortable, Behavior is appropriate for age, ead cooperative. Neurological: Level of Consciousness is awake, alert, obeys commands, Oriented to person, place, time. Respiratory: Airway is patent Respiratory effort is even, unlabored. Derm: Skin is pink, warm & dry. 17:30 General: Appears in no apparent distress, comfortable, Behavior is appropriate for age, ead cooperative. Respiratory: Airway is patent Respiratory effort is even, unlabored. Derm: Skin is pink, warm & dry. 18:25 General: Appears in no apparent distress, comfortable, Behavior is appropriate for age, ead cooperative. Neurological: Level of Consciousness is awake, alert, obeys commands, Oriented to person, place, time. Respiratory: Airway is patent Respiratory effort is even, unlabored, Respiratory pattern is regular, symmetrical, Denies shortness of breath. Derm: Skin is pink, warm & dry. Vital Signs: 11:50 BP 153 / 90; Pulse 61; Resp 20; Temp 100.2(O); Pulse Ox 99% on R/A; Weight 76.2 kg (R); elp Height 5 ft. 4 in. (162.56 cm) (R); Pain 8/10; 12:33 BP 145 / 80 (auto/); ead 12:35 Pulse 62 MON; Resp 18; Pulse Ox 96% on R/A; ead 18:13 BP 129 / 71 (auto/); ead 18:13 Pulse 70 MON; Resp 16; Temp 97.3; Pulse Ox 96% on R/A; Pain 5/10; ead 11:50 Body Mass Index 28.84 (76.20 kg, 162.56 cm) elp Vitals: 11:50 Log In Time: March 19, 2016 at 11:48. RN notified that patient meets Red Flag elp criteria. ED Course: 11:49 Patient visited by Cara Abebe PCA. elp 11:49 Patient moved to Waiting elp 11:50 Nubia Ervin is Private Physician. elp 11:51 Patient visited by Cara Abebe PCA. elp 11:51 Patient visited by Agustín Ramos, JOSEE. mlb1 11:51 Patient moved to Pre RCE elp 11:54 Triage Initiated mlb1 12:00 Patient visited by Agustín Ramos, JOSEE. mlb1 12:00 Suzie Singh,JOSEE is Primary Nurse. mlb1 12:00 Patient moved to 15 mlb1 12:06 [facility] Del[facility]. le 12:15 Patient visited by Lisa Delong FNP. le 12:15 Patient visited by Lisa Delong FNP. le 12:34 storage and backup administrator on. Pulse ox on. NIBP on. lr2 12:34 EKG done. (by ED staff). lr2 12:35 Patient visited by Ariadne Lucia. lr2 12:40 Inserted peripheral IV: 20gauge IV in right hand and blood collected. Patient tolerated ead the procedure well. 12:43 -Blood Culture Sent. ead 12:43 Venous Blood Gas (large pea green tube on ice) Sent. ead 12:43 Acetone Level Sent. ead 12:43 CBC with Diff Sent. ead 12:43 Basic Metabolic Profile Sent. ead 12:55 Patient visited by Suzie Singh,JOSEE. ead 12:56 Patient visited by Ariadne Lucia. lr2 12:56 BLOOD CULTURES Sent. ead 12:57 [facility] Payment Agreement was scanned into [employer] and attached to record. jp5 13:12 Patient visited by Suzie Singh,JOSEE. ead 13:12 CT Head Without Contrast Returned. EDMS 13:21 UA Sent. ead 13:49 Patient visited by Lisa Delong FNP. le 14:26 Patient visited by Suzie Singh,JOSEE. ead 15:19 Patient visited by Suzie Singh,JOSEE. ead 16:00 Patient moved to MRI ead 16:01 Patient visited by Suzie Singh,JOSEE. ead 16:56 Patient visited by Suzie Singh,JOSEE. ead 16:56 Patient moved to 15 ead 17:20 -MRA-Brain without contrast Returned. EDMS 17:20 -MRI-Brain without Returned. EDMS 17:54 Patient visited by Suzie Singh,JOSEE. ead 18:10 Nubia Ervin is Referral Physician. le 18:10 Rosalio Bejarano is Referral Physician. le 18:14 MRA CAROTID W/O FOL WITH Returned. EDMS 18:24 Discontinued lock intact, bleeding controlled, pressure dressing applied, No ead redness/swelling at site. No procedures done that require assistance. 18:26 The patient / caregiver is instructed regarding the plan of care and ED course. ead 03/20 14:10 T-Sheet-- Draft Copy was scanned into [employer] and attached to record. gb 14:10 ECG/EKG was scanned into [employer] and attached to record. gb 22:11 ELECTROCARDIOGRAM ADULT Returned. EDMS Administered Medications: 03/19 12:53 Drug: diphenhydrAMINE 25 mg [diphenhydramine 50 mg/mL injection solution (0.5 mL)] ead Route: IVP; Site: right hand; 13:30 Follow up: Response: No Adverse Reaction; No significant change. ead 12:55 Drug: Metoclopramide 20 mg [metoclopramide 5 mg/mL injection solution] Route: IV; Rate: ead 80 mg/hr; Infused Over: 15 mins; Site: right hand; 13:30 Follow up: Response: No Adverse Reaction; No significant change.; IV Status: Completed ead infusion; IV Intake: 10ml 12:56 Drug: NS 0.9% 1000 ml [sodium chloride 0.9 % intravenous solution] Route: IV; Rate: ead bolus; Site: right hand; 14:19 Drug: Magnesium Sulfate in D5W 2 grams [magnesium sulfate 1 gram/100 mL in dextrose 5 % jc4 intravenous piggyback] Route: IV; Rate: bolus; Site: right hand; 15:23 Follow up: IV Status: Completed infusion; IV Intake: 100ml ; 1 gram completed infusion. ead second bag of 1 gram now infusing over 1 hour 18:18 Follow up: IV Status: Completed infusion; IV Intake: 100ml ; 2nd 1 gram bag completed ead infusion 18:04 CANCELLED (Other Intervention Used): Insulin Regular Human 10 units IVP once le 18:04 CANCELLED (Patient Refused): NS 0.9% 1000 ml IV at bolus once le 18:10 Drug: Insulin Regular Human 10 units [insulin regular human 100 unit/mL injection ead solution (0.1 mL)] {Co-Signature: ja5 (Radha Fiore RN).} Route: Sub-Q; Site: right upper arm; Point of Care Testing: Blood Glucose: 14:25 Blood Glucose: 391 mg/dL; ead Ranges: Intake: 13:30 IV: 10.00ml; Total: 10.00ml. ead 15:23 IV: 100.00ml; Total: 110.00ml. ead 18:18 IV: 100.00ml; Total: 210.00ml. ead Order Results: Lab Order: Basic Metabolic Profile; SPEC'M 03/19/16 12:40 Test: GLUCOSE, FASTING; Value: 463; Range: 70-105; Abnormal: Above upper panic limits; Units: MG/DL; Status: F Test: BLOOD UREA NITROGEN; Value: 15; Range: 7-18; Units: MG/DL; Status: F Test: CREATININE FOR GFR; Value: 0.88; Range: 0.55-1.02; Units: MG/DL; Status: F Test: GLOMERULAR FILTRATION RATE; Value: > 60.0; Range: >51; Status: F Test: SODIUM LEVEL; Value: 135; Range: 136-145; Abnormal: Below low normal; Units: MEQ/L; Status: F Test: POTASSIUM SERUM; Value: 4.2; Range: 3.5-5.1; Units: MEQ/L; Status: F Test: CHLORIDE LEVEL; Value: 104; Range: 98-107; Units: MEQ/L; Status: F Test: CARBON DIOXIDE LEVEL; Value: 24; Range: 21-32; Units: MEQ/L; Status: F Test: ANION GAP; Value: 7; Range: 8-16; Abnormal: Below low normal; Units: MEQ/L; Status: F Test: CALCIUM LEVEL; Value: 8.3; Range: 8.5-10.1; Abnormal: Below low normal; Units: MG/DL; Status: F Test Note: ; Units are mL/min/1.73 m2 Chronic Kidney Disease Staging per NKF: Stage I & II GFR >=60 Normal to Mildly Decreased Stage III GFR 30-59 Moderately Decreased Stage IV GFR 15-29 Severely Decreased Stage V GFR <15 Very Little GFR Left ESRD GFR <15 on MORGUE ATTENDANT Lab Order: CBC with Diff; SPEC'M 03/19/16 12:40 Test: WHITE BLOOD COUNT; Value: 6.5; Range: 4.0-10.0; Units: K/mm3; Status: F Test: RED BLOOD COUNT; Value: 4.10; Range: 4.00-5.40; Units: M/mm3; Status: F Test: HEMOGLOBIN; Value: 12.6; Range: 12.0-16.0; Units: g/dl; Status: F Test: HEMATOCRIT; Value: 39.2; Range: 36.0-47.0; Units: %; Status: F Test: MEAN CORPUSCULAR VOLUME; Value: 95.8; Range: 80.0-96.0; Units: fl; Status: F Test: MEAN CORPUSCULAR HEMOGLOBIN; Value: 30.8; Range: 27.0-33.0; Units: pg; Status: F Test: MEAN CORPUSCULAR HGB CONC; Value: 32.2; Range: 32.0-36.5; Units: g/dl; Status: F Test: RED CELL DISTRIBUTION WIDTH; Value: 12.8; Range: 11.5-14.5; Units: %; Status: F Test: PLATELET COUNT, AUTOMATED; Value: 230; Range: 150-450; Units: k/mm3; Status: F Test: NEUTROPHILS %; Value: 59.1; Range: 36.0-66.0; Units: %; Status: F Test: LYMPH %; Value: 28.2; Range: 24.0-44.0; Units: %; Status: F Test: MONO %; Value: 4.3; Range: 0.0-5.0; Units: %; Status: F Test: EOS %; Value: 5.7; Range: 0.0-3.0; Abnormal: Above high normal; Units: %; Status: F Test: BASO %; Value: 1.1; Range: 0.0-1.0; Abnormal: Above high normal; Units: %; Status: F Test: LARGE UNSTAINED CELL %; Value: 1.6; Range: 0.0-4.0; Units: %; Status: F Test: NEUTROPHILS #; Value: 3.8; Range: 1.8-7.7; Units: K/mm3; Status: F Test: LYMPH #; Value: 1.9; Range: 1.5-4.5; Units: K/mm3; Status: F Test: MONO #; Value: 0.3; Range: 0.0-0.8; Units: K/mm3; Status: F Test: EOS #; Value: 0.4; Range: 0.0-0.50; Units: K/mm3; Status: F Test: BASO #; Value: 0.1; Range: 0.0-0.2; Units: K/mm3; Status: F Test: LARGE UNSTAINED CELL #; Value: 0.1; Range: 0.0-0.4; Units: K/mm3; Status: F Lab Order: -Blood Culture; SPEC'M 03/19/16 12:40 Test: BLOOD CULTURE; Value: No growth after 24 hours . All specimens observed; Status: F Test: BLOOD CULTURE; Value: for 5 days. Results final at that time.; Status: F Test: BLOOD CULTURE; Value: No Growth after 48 hours. All Specimens observed; Status: F Test: BLOOD CULTURE; Value: for 7 days. Results final at that time.; Status: F Lab Order: UA; SPEC'M 03/19/16 13:18 Test: APPEARANCE, URINE; Value: CLEAR; Range: CLEAR; Status: F Test: COLOR, URINE; Value: STRAW; Range: YELLOW; Status: F Test: PH,URINE; Value: 5.0; Range: 5.0-9.0; Units: UNITS; Status: F Test: SPECIFIC GRAVITY URINE AUTO; Value: 1.018; Range: 1.002-1.035; Status: F Test: PROTEIN, URINE AUTO; Value: NEGATIVE; Range: NEGATIVE; Units: mg/dL; Status: F Test: GLUCOSE, URINE (UA) AUTO; Value: 3+; Range: NEGATIVE; Abnormal: Above high normal; Units: mg/dL; Status: F Test: KETONE, URINE AUTO; Value: NEGATIVE; Range: NEGATIVE; Units: mg/dL; Status: F Test: UROBILINOGEN, URINE AUTO; Value: 0.2; Range: 0.0-2.0; Units: mg/dL; Status: F Test: BILIRUBIN, URINE AUTO; Value: NEGATIVE; Range: NEGATIVE; Status: F Test: NITRITE, URINE AUTO; Value: NEGATIVE; Range: NEGATIVE; Status: F Test: LEUKOCYTE ESTERASE, URINE AUTO; Value: NEGATIVE; Range: NEGATIVE; Status: F Test: BLOOD, URINE BLOOD; Value: NEGATIVE; Range: NEGATIVE; Status: F Test: WBC, URINE AUTO; Value: 0; Range: 0-3; Units: /HPF; Status: F Test: RBC, URINE AUTO; Value: 3; Range: 0-3; Units: /HPF; Status: F Test: BACTERIA, URINE AUTO; Value: NEGATIVE; Range: NEGATIVE; Status: F Test: SQUAMOUS EPITHELIAL CELL UR AU; Value: 0; Range: 0-6; Units: /HPF; Status: F Test: MUCUS, URINE; Value: SMALL; Range: NEGATIVE; Status: F Test: HYALINE CAST, URINE AUTO; Value: 0; Range: 0-1; Units: /LPF; Status: F Lab Order: Acetone Level; SPEC'M 03/19/16 12:40 Test: ACETONE/KETONE; Value: 3.34; Range: <2.81; Abnormal: Above high normal; Units: MG/DL; Status: F Lab Order: Venous Blood Gas (large pea green tube on ice); SPEC03/19/16 12:40 Test: VENOUS PH; Value: 7.408; Range: 7.330-7.430; Units: UNITS; Status: F Test: VENOUS PARTIAL PRESSURE CO2; Value: 35.1; Range: 38.0-50.0; Abnormal: Below low normal; Units: mmHg; Status: F Test: VENOUS PARTIAL PRESSURE O2; Value: 78.9; Range: 30.0-50.0; Abnormal: Above high normal; Units: mmHg; Status: F Test: VENOUS TOTAL CO2; Value: 22.7; Range: 24.0-28.0; Abnormal: Below low normal; Units: MEQ/L; Status: F Test: VENOUS HCO3; Value: 21.6; Range: 23.0-27.0; Abnormal: Below low normal; Units: MEQ/L; Status: F Test: VENOUS BASE EXCESS; Value: -2.4; Range: -2.0-2.0; Abnormal: Below low normal; Status: F Test: VENOUS STANDARD HCO3; Value: 22.5; Units: MEQ/L; Status: F Test: VENOUS O2 SATURATION; Value: 96.3; Range: 60.0-80.0; Abnormal: Above high normal; Units: %; Status: F Lab Order: BLOOD CULTURES; [facility]03[facility] 12:55 Test: BLOOD CULTURE; Value: No growth after 24 hours . All specimens observed; Status: F Test: BLOOD CULTURE; Value: for 5 days. Results final at that time.; Status: F Test: BLOOD CULTURE; Value: No Growth after 48 hours. All Specimens observed; Status: F Test: BLOOD CULTURE; Value: for 7 days. Results final at that time.; Status: F Lab Order: Fingerstick Blood Sugar; [facility]03/[facility] 14:24 Test: BEDSIDE GLUCOSE; Value: 391; Range: 70-105; Abnormal: Above high normal; Units: MG/DL; Status: F Lab Order: Fingerstick Blood Sugar; [facility]' 03/19/16 17:56 Test: BEDSIDE GLUCOSE; Value: > 600; Range: 70-105; Abnormal: Above upper panic limits; Units: MG/DL; Status: F Test Note: ; RN Notified Radiology Order: CT Head Without Contrast Test: CT Head Without Contrast REASON FOR EXAMINATION: CVA >4.5hrs; CT Head without contrast; ; HISTORY: Infarction; ; COMPARISON: 11/28/2015; ; There is no intraparenchymal hemorrhage, acute infarct, or midline shift. The; ventricular system is normal in appearance. There is no extra cerebral; collection. The 9 mm meningioma overlying the left frontal lobe at the vertex is; not seen in the present examination. There is no fracture. The visualized; sinuses are clear.; ; IMPRESSION: There is no acute intracranial lesion.; ; ; ; ; Signed by; Grant Grajeda MD 03/19/2016 12:31 P; Radiology Order: ELECTROCARDIOGRAM ADULT Test: ELECTROCARDIOGRAM ADULT REASON FOR EXAMINATION: CVA >4.5hrs; Stationary ECG Study; [facility] ED; ; Test Date: 2016-03-19; Pat Name: ALIA SIERRA Department:; Room: -; Gender: F Iv Therapy Nurse: [email or web address]; : 1965 Requested By: LISA ROSAS; Order Number: [id number] Reading MD: Dena Orantes; Measurements; Intervals [place]; Rate: 61 P: -16; [place]: 199 QRS: 47; QRSD: 85 T: 41; QT: 399; QTc: 405; Interpretive Statements; SINUS RHYTHM WITH SINUS ARRHYTHMIA; DECREASED RATE 11/28/15; Electronically Signed On 03-20-2016 21:36:41 EST by Dena Orantes; Radiology Order: -MRA-Brain without contrast Test: -MRA-Brain without contrast REASON FOR EXAMINATION: l hemiparesis;CVA >4.5hrs; MRA BRAIN WITHOUT CONTRAST:; ; HISTORY: Left hemiparesis.; ; Comparison: 11/28/2015; ; 3D [id number] MR angiography was performed at the level of the [place] of; [place].; ; There is no aneurysm, arteriovenous malformation or atherosclerotic lesion. Major; intracranial vessels are patent. The vertebral arteries are equal in size and; patent.; ; IMPRESSION:Normal MRA brain.; ; ; Signed by; Grant Grajeda MD 03/19/2016 04:58 P; Radiology Order: -MRI-Brain without Test: -MRI-Brain without REASON FOR EXAMINATION: l hemiparesis;CVA >4.5hrs; MR BRAIN WITHOUT CONTRAST:; ; HISTORY: Left hemiparesis.; ; COMPARISON: MR 11/28/[address] 03/19/2016.; ; There are no areas of abnormal signal intensity in the brain. There is no; intraparenchymal hemorrhage, infarct mass or midline shift. The ventricular; system is normal in appearance. There is no extracerebral collection. A small; meningoma is present overlying the left frontal lobe at the vertex. The meningoma; measures 9 mm in transverse x 9 mm in AP dimensions and is unchanged in its size; compared to the previous study. Minimal mucosal thickening is present in the left; sphenoid sinus.; ; IMPRESSION:1. There is no acute intracranial lesion.; ; 2. There has been no change in size of the small meningioma overlying the left; frontal lobe at the vertex.; ; ; Signed by; Grant Grajeda MD 03/19/2016 04:54 P; Radiology Order: MRA CAROTID W/O FOL WITH Test: MRA CAROTID W/O FOL WITH REASON FOR EXAMINATION: CVA >4.5hrs; MRA carotid without and with contrast:; ; History: Infarction.; ; Contrast: ProHance, 25 mL.; ; Comparison: 08/06/2011; ; Unenhanced 2D TOF and contrast enhanced MR angiography were performed at the; level of the carotid bifurcations.; ; The distal common carotid arteries and origins of the external and internal; carotid arteries are normal. There is no carotid stenosis. Moderate; atherosclerotic disease involves the proximal vertebral arteries. The vertebral; arteries are equal in size and patent.; ; IMPRESSION:; ; 1. There is no carotid stenosis,; ; 2. Moderate atherosclerotic disease involves the proximal vertebral arteries.; ; ; Signed by; Grant Grajeda MD 03/20/2016 08:04 A; Outcome: 18:11 Discharge ordered by Provider. le 18:26 Discharge Assessment: Patient awake and alert. obeys commands, Oriented to person, ead place and time. patient administered narcotics - no. The following High Risk Discharge criteria are identified: None. Discharged to home ambulatory, with family. Condition: improved. Discharge instructions given to patient, Instructed on discharge instructions, follow up and referral plans. Demonstrated understanding of instructions, Pt was receptive of discharge instructions/ teaching. CT Study completed. MRI Study completed. Property sent home with patient. 18:27 Patient left the ED. ead Signatures: Dispatcher [employer] EDRitika Romero, Dilip Reg Agustín Tracey, RN RN mlb1 Lisa Delong, GENERAL COUNSEL GENERAL COUNSEL Sophia Polanco, RN RN [id number] Cara Abebe PCA PCA elp Dunaway, Emily,RN RN Cristian Gallo Laura lr2 Radha Fiore RN ja5 Chart Complete MTDD
--- NOTE | 2016-03-21 19:28 | EDDOCDS ---
Physician Documentation [facility] Name: Alia Sierra Age: 50 yrs Sex: Female : 1965 Arrival Date: 03/19/2016 Time: 11:47 Bed 15 Private MD: Nubia Ervin D Disposition: 03/19 18:13 Critical Care: Critical care not applicable. le Disposition: 03/19/16 18:11 Discharged to Home/Self Care. Impression: Hemiplegic migraine, not intractable, Type 1 diabetes mellitus with hyperglycemia, Diarrhea, unspecified. - Condition is Stable. - Discharge Instructions: Food Choices to Help Relieve Diarrhea, Adult, Diabetes and Sick Day Management, Diarrhea, Migraine Headache, Hyperglycemia. - Medication Reconciliation, Local Pharmacy Hours form. - Follow up: Nubia Ervin; When: Call to arrange an appointment; Reason: Recheck today's complaints, Continuance of care. Follow up: Rosalio Bejarano; When: Keep your scheduled appointment on 04/04; Reason: Recheck today's complaints, Continuance of care. - Problem is new. - Symptoms have improved. - Notes: Keep hydrated Check your blood sugar as soon as you get home and at bedtime, then per normal Return to the ED for any further concerns Historical: - Allergies: adhesive tape-silicones (Rash); Can't have steroids because it makes her go into DKA.; - Home Meds: 1. albuterol sulfate 90 mcg/actuation Inhl HFAA 1 puff every 4-6 hours as needed 2. amitriptyline 25 mg Oral tab 1 tab nightly 3. ammonium lactate 12 % Topical crea twice a day to bilateral feet 4. aspirin 81 mg Oral TbEC 1 tab once daily 5. buspirone 15 mg Oral tab 1 tab 2 times per day 6. ferrous sulfate 325 mg (65 mg iron) Oral tab daily 7. gabapentin 600 mg Oral tab 1 tab 3 times per day as needed 8. GlucaGen HypoKit 1 mg injection solr as needed 9. Humalog 100 unit/mL Sub-Q soln sliding scale three - six times daily 10. Lantus 100 unit/mL Sub-Q soln 26 unit daily 11. levalbuterol HCl 0.63 mg/3 mL inhalation nebu 3 mL every 8 hours as needed 12. lidocaine 5 % Topical ptmd 1 patch once daily 13. lisinopril 10 mg Oral tab 1 tab once daily 14. loratadine 10 mg Oral tab 1 tab nightly 15. Miralax 17 gram Oral pwpk 1 packet once daily as needed 16. omeprazole 40 mg oral cpDR 2 times per day 17. paroxetine HCl 40 mg Oral tab 1 tab once daily 18. Percocet 7.5-325 mg Oral tab 1 tab every 6 hours as needed 19. propranolol 20 mg Oral tab 1 tab 2 times per day 20. Reglan 10 mg Oral tab 1 tab three times a day 21. Singulair 10 mg Oral tab 1 tab once daily 22. sumatriptan succinate 6 mg/0.5 mL Sub-Q soln 0.5 mL as needed 23. trazodone 150 mg Oral tab 1 tab nightly 24. Zanaflex 4 mg Oral tab 1 tab every 8 hours as needed 25. Zofran (as hydrochloride) 4 mg Oral tab 2 tabs as needed - PMHx: Anxiety; Arthritis; Asthma; Celiac disease; Diabetes - IDDM: uncontrolled; Heart Murmur; Migraine Headaches; pseudo seizures; TIA; - PSHx: ; Appendectomy; Hiatal Hernia Repair; Bariatric Sleeve; Hysterectomy; Carpal Tunnel Repair- Bilateral; Deviated Septum Surgery; - Social history: Smoking status: Patient states former smoker of tobacco. No barriers to communication noted, The patient speaks fluent Greenlandic, Speaks appropriately for age. - Family history: Not pertinent. - : The pt / caregiver states he / she is not on anticoagulants. Home medication list is obtained from the patient. - Exposure Risk Screening:: None identified. Vital Signs: 11:50 BP 153 / 90; Pulse 61; Resp 20; Temp 100.2(O); Pulse Ox 99% on R/A; Weight 76.2 kg / elp 167.99 lbs (R); Height 5 ft. 4 in. (162.56 cm) (R); Pain 8/10; 12:33 BP 145 / 80 (auto/); ead 12:35 Pulse 62 MON; Resp 18; Pulse Ox 96% on R/A; ead 18:13 BP 129 / 71 (auto/); ead 18:13 Pulse 70 MON; Resp 16; Temp 97.3; Pulse Ox 96% on R/A; Pain 5/10; ead 11:50 Body Mass Index 28.84 (76.20 kg, 162.56 cm) elp MDM: 12:15 [place]razer Crawler Torch/Pulse Ox/q 15 min VS ordered. le 12:15 Accucheck ordered. le 12:15 IV Saline Lock ordered. le 12:15 Rhythm Strip to chart ordered. le 12:15 -Blood Culture (Adults Only), peripheral from different site, or from device/port/PICC le etc. if present ordered. 12:16 Basic Metabolic Profile Ordered. EDMS 12:16 CBC with Diff Ordered. EDMS 12:16 UA Ordered. EDMS 12:16 Acetone Level Ordered. EDMS 12:16 Venous Blood Gas (large pea green tube on ice) Ordered. EDMS 12:16 -Blood Culture Ordered. EDMS 12:17 Chest, 2 View (pa\E\lat) Ordered. EDMS 12:17 CT Head Without Contrast Ordered. EDMS 12:17 ECG WITH READING ER PHYS+CARDIAG ordered. EDMS 12:18 -Blood Culture (Adults Only), peripheral from different site, or from device/port/PICC lbd etc. if present complete. 12:20 BLOOD CULTURES Ordered. EDMS 12:35 NS 0.9% 1000 ml IV at bolus once ordered. le 12:36 diphenhydrAMINE 25 mg IVP once ordered. le 12:36 Metoclopramide 20 mg IV at 80 mg/hr once over 15 mins ordered. le 12:57 [facility] Payment Agreement was scanned into [email or web address] and attached to record. jp5 12:58 Financial registration complete. jp5 13:24 CBC with Diff Reviewed. le 13:24 Venous Blood Gas (large pea green tube on ice) Reviewed. le 13:24 CT Head Without Contrast Reviewed. le 13:26 Acetone Level Reviewed. le 13:26 Basic Metabolic Profile Reviewed. le 13:32 MRI Screening Tool - Place on chart, inform RN ordered. le 13:33 -MRA-Brain without contrast Ordered. EDMS 13:33 -MRI-Brain without Ordered. EDMS 13:40 MRA CAROTID W/O FOL WITH Ordered. EDMS 13:53 UA Reviewed. le 13:55 Magnesium Sulfate in D5W 2 grams IV at bolus once ordered. le 13:55 Accucheck ordered. le 14:01 MRI Screening Tool - Place on chart, inform RN complete. lbd 14:32 Fingerstick Blood Sugar Ordered. EDMS 17:11 CONSISTENT CARBOHYDRATE+DIET ordered. EDMS 17:14 Accucheck ordered. le 17:56 Fingerstick Blood Sugar Reviewed. le 17:56 -MRA-Brain without contrast Reviewed. le 17:56 -MRI-Brain without Reviewed. le 18:04 Insulin Regular Human 10 units Sub-Q once ordered. le 02/08 10:49 Fingerstick Blood Sugar Ordered. EDMS 14:10 T-Sheet-- Draft Copy was scanned into [email or web address] and attached to record. gb 14:10 ECG/EKG was scanned into [email or web address] and attached to record. gb Point of Care Testing: Blood Glucose: 02 14:25 Blood Glucose: 391 mg/dL; ead Ranges: Administered Medications: 12:53 Drug: diphenhydrAMINE 25 mg [diphenhydramine 50 mg/mL injection solution (0.5 mL)] ead Route: IVP; Site: right hand; 13:30 Follow up: Response: No Adverse Reaction; No significant change. ead 12:55 Drug: Metoclopramide 20 mg [metoclopramide 5 mg/mL injection solution] Route: IV; Rate: ead 80 mg/hr; Infused Over: 15 mins; Site: right hand; 13:30 Follow up: Response: No Adverse Reaction; No significant change.; IV Status: Completed ead infusion; IV Intake: 10ml 12:56 Drug: NS 0.9% 1000 ml [sodium chloride 0.9 % intravenous solution] Route: IV; Rate: ead bolus; Site: right hand; 14:19 Drug: Magnesium Sulfate in D5W 2 grams [magnesium sulfate 1 gram/100 mL in dextrose 5 % jc4 intravenous piggyback] Route: IV; Rate: bolus; Site: right hand; 15:23 Follow up: IV Status: Completed infusion; IV Intake: 100ml ; 1 gram completed infusion. ead second bag of 1 gram now infusing over 1 hour 18:18 Follow up: IV Status: Completed infusion; IV Intake: 100ml ; 2nd 1 gram bag completed ead infusion 18:04 CANCELLED (Other Intervention Used): Insulin Regular Human 10 units IVP once le 18:04 CANCELLED (Patient Refused): NS 0.9% 1000 ml IV at bolus once le 18:10 Drug: Insulin Regular Human 10 units [insulin regular human 100 unit/mL injection ead solution (0.1 mL)] {Co-Signature: manuel (Radha Fiore RN).} Route: Sub-Q; Site: right upper arm; Signatures: Dispatcher [employer] EDMS Rachael Alisha, Statistical Engineer Unit lbd Ritika Hammer, Reg Reg gb RichardAgustín, RN RN mlb1 Lisa Delong, WINE PASTEURIZER WINE PASTEURIZER Suzie Rivas,RN RN Cristian Gallo jp5 Sophia Chester RN [email or web address] Radha Fiore RN [id number] The chart was reviewed and I authenticate all verbal orders and agree with the evaluation and treatment provided.Corrections: (The following items were deleted from the chart) 13:39 13:33 MRA-Carotid with contrast+MR ordered. EDMS EDMS 18:04 18:01 Redraw Labs ordered. le le 18:04 18:01 Insulin Regular Human 10 units IVP once ordered. le le 18:04 18:01 NS 0.9% 1000 ml IV at bolus once ordered. le le Attachments: 12:57 [facility] Payment Agreement jp5 03/20 14:10 T-Sheet-- Draft Copy gb 14:10 ECG/EKG Chart Complete MTDD
--- NOTE | 2016-03-22 12:47 | REP ---
Chest x-ray: Two views. Repeat dictation. History: Weakness and fever. . Comparison study: November 28, 2015 . Findings: The lungs are well inflated and free of infiltrate. The pleural angles are sharp. The heart size is normal. Pulmonary vasculature is not increased. No significant bony abnormality is seen. Impression: Negative chest x-ray. Signed by Noe Faith MD 03/22/2016 12:37 P
== END 2016-03-19 18:27 | disposition home or self-care (01) ==
LOC: M ED 11:47
DX: E11.65 Type 2 diabetes mellitus with hyperglycemia (principal); G43.909 Migraine, unspecified, not intractable, without status migrainosus; G81.92 Hemiplegia, unspecified affecting left dominant side; D32.9 Benign neoplasm of meninges, unspecified; F41.9 Anxiety disorder, unspecified; M19.90 Unspecified osteoarthritis, unspecified site; J45.909 Unspecified asthma, uncomplicated; K90.0 Celiac disease; R01.1 Cardiac murmur, unspecified; R56.9 Unspecified convulsions; Z86.73 Personal history of transient ischemic attack (TIA), and cerebral infarction without residual deficits; Z87.891 Personal history of nicotine dependence; Z79.899 Other long term (current) drug therapy; Z79.4 Long term (current) use of insulin; Z79.82 Long term (current) use of aspirin; Z88.8 Allergy status to other drugs, medicaments and biological substances
CPT/HCPCS: 36415; 70450; 70544; 70549; 70551; 71020; 80048; 81001; 82010; 82803; 85025; 87040; 93005; 93041; 96365; 96367; 96372; 96375; 99285; A9576; G0463; J1200; J2765; J3475

== ENCOUNTER → 2016-03-19 | Outpatient (REF) | payer MEDICARE, MEDICAID ==
[~2016-03-19] MED LIST: /ATOR40TA; /ATOR40TA PO; /AUGM875TA OR; /DULO30CA OR; /INSUREG SC; /MOXI40TA PO; /ONDA4TA OR; /ONDA4TA PO; /VERA12TA PO; /ZOLP6ER OR; ACET-654 PO; ACET650S3 PO; ACET65TA; ACET65TA PO; ALBU17IN INH; ALBU83IN INH; ALPR0.25; ALPR0.25 OR; ALPR2TAB PO; AMBI10TA; AMBI10TA OR; AMIT25TA PO; AMMO12CR TOP; AMOX500T PO; ASPI1TAB PO; ASPI325T OR; ASPI325T PO; ASPI81TA2 PO; ASPI81TA3; ASPI81TA7 PO; ASPI81TA83 OR; ASPI81TA85 PO; AUGM12TA10 PO; AUGM500T34 PO; Albuterol Inhaler INH; BACT800T5 PO; BARIATRIC FUSION VIT PO; BUSP15TA47 PO; CINN500C9 PO; CINNAMON OR; CINNAMON PO; CLAR5CHW PO; CLIN1CAP5 PO; CLON0.5T OR; CYCL10TA PO; CYMB60CA3 PO; DOCU100C PO; FERR325T PO; FISH1000 OR; FISH5CAP PO; FLAX10005 PO; FLAX1200 PO; FLEX10TA2 PO; FLEXERIL PO; FLUO0.0114 AU; GABA300C2 PO; GABA300C3 PO; GABA300T; GABA600T PO; GABA600T3 OR; GLUC1000; GLUC1000 OR; GLUC1KIT IM; GLUCAGEN; GLUCINJ SC; Glipizide PO; HAIR SKIN NAIL PO; HUMA100I SC; HUMUINJ; HYDR5TAB23 PO; HYDR7.5T38 PO; HYDROCODONE/ACETA PO; Humalog Insulin Pump; IBUP200T2 PO; IBUP800T OR; IBUPPOW25; IBUPPOW25 PO; INDA2.5T PO; INDA25TAB PO; INDAPAMIDE; INDAPAMIDE PO; INSUH10VL SC; INSUH10VL XX; INSUHUMDS SC; INSULANT; INSULANT SC; INSULIN; IRON28TA PO; Ibuprofen PO; KLON0.5T PO; LANTUS SC; LEVA0.63 IN; LEVA0.636 INH; LEVA12INH INH; LEVO500T PO; LIDO5OI TOP; LIPI20TA OR; LIPI80TA PO; LISI10TA4; LISI10TA4 PO; LORA10TA2 PO; LORATADINE; Loratadine PO; METH-107 PO; METH750T PO; METHOCARBAMOL PO; MONT10TA2 PO; MULTCAP PO; MULTIVIT PO; MULTTAB4 PO; NASA0.057; NEUR600T PO; NORCOBULK PO; NORCOTAB PO; NOVOLOG SQ; NOVOLOG100 MG/ML SC; OCEA0.654; OMEP20CA3 PO; OMEP40CA2 PO; OXYC1TAB15 PO; OXYC1TAB23 PO; OXYC5TAB2 PO; PARO40TA PO; PAXI20TA3 PO; PAXI40TA2 PO; PERC5TAB6 PO; PERC7.5T3 PO; PERCOCET PO; PRED20TA PO; PRIL40CA OR; PROAAER INH; PROP10TA56 PO; PROV90AE; PYRI50TA PO; RANI300T; RANI300T OR; REGL10TA6 PO; ROXI1TAB2 PO; SENN1TAB3 PO; SENN8.6T10 PO; SERT-141 PO; SIME80TA PO; SUMA6INJ16 SC; SYSTSOL8 OU; TESS100C PO; TRAM50TA2 OR; TRAZ100T4 PO; TRAZ150T14 PO; TRIA55SP; TUSS1CAP5 PO; TYLE325T5 PO; ULTR50TA PO; VERA120T2 PO; VERAPAMIL; VERAPAMIL PO; VICO5TAB16 PO; VITA10002 PO; VITA10005 PO; VITA100066 PO; VITA100087 PO; VITA250L PO; VITA400C2 PO; VITA50TA3 PO; VITA50TA43 PO; VITAD1000T PO; VITAMIN B PO; VITAMIN D PO; VITAMIN E PO; VITAPRTA PO; VITATAB11 PO; VITATAB38 PO; VITMTA PO; XOPEAER IN; ZANA4CAP PO; ZITHTAB PO; ZOFR20TA PO; ZOLO100T PO; ZONI100C2 PO; ZONI50CA3 PO; [UNRECOGNIZED DRUG - CODE] MT; [UNRECOGNIZED DRUG - CODE] PO; [UNRECOGNIZED DRUG - CODE] PO; [UNRECOGNIZED DRUG - OTHER]; [UNRECOGNIZED DRUG - OTHER] PO; insulin pump; klonopin PO; novolog SQ; novolog insulin pump; ultram PO; xopenex INH
== END ==
LOC: M LAB REF 11:03
PROVIDERS: ATTEND Nurse Practitioner Family
DX: R07.89 Other chest pain (principal)

== ENCOUNTER → 2016-03-20 | Outpatient (REF) | payer MEDICARE, MEDICAID ==
[2016-03-20 12:24] LABS: ALBUMIN 3.2 GM/DL (3.2-5.2); ALBUMIN/GLOBULIN RATIO 1.03 (1.00-1.93); ALKALINE PHOSPHATASE 101 U/L (45-117); ALT/SGPT 73 U/L (12-78); AMYLASE 38 U/L (25-115); ANION GAP 10 MEQ/L (8-16); AST/SGOT 39 U/L (15-37); BILIRUBIN,TOTAL 0.2 MG/DL (0.2-1.0); BLOOD UREA NITROGEN 12 MG/DL (7-18); CALCIUM LEVEL 8.4 MG/DL (8.5-10.1); CARBON DIOXIDE LEVEL 27 MEQ/L (21-32); CHLORIDE LEVEL 104 MEQ/L (98-107); CREATININE FOR GFR 0.87 MG/DL (0.55-1.02); GLOMERULAR FILTRATION RATE > 60.0 (>51); GLUCOSE, FASTING 377 MG/DL (70-105); POTASSIUM SERUM 4.3 MEQ/L (3.5-5.1); SODIUM LEVEL 141 MEQ/L (136-145); TOTAL PROTEIN 6.3 GM/DL (6.4-8.2)
== END ==
LOC: M SFHCPLAZ 10:31
PROVIDERS: ATTEND Nurse Practitioner Family
DX: A09 Infectious gastroenteritis and colitis, unspecified (principal); R07.89 Other chest pain
CPT/HCPCS: 36415; 80053; 82150; 82550; 82553; 83690; 84484; G0463

== ENCOUNTER → 2016-03-21 | Outpatient (REF) | payer MEDICARE, MEDICAID | LOC: M SFHCPLAZ 12:05 | PROVIDERS: ATTEND Nurse Practitioner Family | DX: A09 Infectious gastroenteritis and colitis, unspecified (principal) ==

== ENCOUNTER → 2016-03-26 | Outpatient (CLI) | payer MEDICARE, MEDICAID ==
[2016-03-26 17:33] LABS: ALBUMIN 3.3 GM/DL (3.2-5.2); ALKALINE PHOSPHATASE 95 U/L (45-117); ALT/SGPT 51 U/L (12-78); ANION GAP 8 MEQ/L (8-16); AST/SGOT 35 U/L (15-37); BILIRUBIN,TOTAL 0.3 MG/DL (0.2-1.0); BLOOD UREA NITROGEN 12 MG/DL (7-18); CALCIUM LEVEL 8.6 MG/DL (8.5-10.1); CARBON DIOXIDE LEVEL 26 MEQ/L (21-32); CHLORIDE LEVEL 108 MEQ/L (98-107); CREATININE FOR GFR 0.72 MG/DL (0.55-1.02); GLOMERULAR FILTRATION RATE > 60.0 (>51); GLUCOSE, FASTING 164 MG/DL (70-105); POTASSIUM SERUM 4.9 MEQ/L (3.5-5.1); SODIUM LEVEL 142 MEQ/L (136-145); TOTAL PROTEIN 6.3 GM/DL (6.4-8.2)
[2016-03-26 18:04] LABS: BASO # 0.1 K/mm3 (0.0-0.2); BASO % 1.4 % (0.0-1.0); EOS # 0.4 K/mm3 (0.0-0.50); EOS % 7.9 % (0.0-3.0); LARGE UNSTAINED CELL # 0.2 K/mm3 (0.0-0.4); LARGE UNSTAINED CELL % 3.1 % (0.0-4.0); LYMPH # 2.3 K/mm3 (1.5-4.5); LYMPH % 41.7 % (24.0-44.0); MEAN CORPUSCULAR HEMOGLOBIN 29.7 pg (27.0-33.0); MEAN CORPUSCULAR HGB CONC 30.9 g/dl (32.0-36.5); MONO # 0.2 K/mm3 (0.0-0.8); MONO % 4.3 % (0.0-5.0); NEUTROPHILS # 2.3 K/mm3 (1.8-7.7); NEUTROPHILS % 41.6 % (36.0-66.0); PLATELET COUNT, AUTOMATED 249 k/mm3 (150-450); RED CELL DISTRIBUTION WIDTH 12.9 % (11.5-14.5); WHITE BLOOD COUNT 5.4 K/mm3 (4.0-10.0)
== END ==
LOC: M WUC 13:31
PROVIDERS: ATTEND Nurse Practitioner Family
DX: R19.7 Diarrhea, unspecified (principal)

== ENCOUNTER → 2016-05-22 | Outpatient (REF) | payer MEDICARE, MEDICAID ==
[~2016-05-22] MED LIST changes: +ACET50TAOT PO; +AUGM875T27 PO; +CHAN1PAK9 PO; +CLON0.5T PO; +GABA-282 PO; -GABA300C3 PO; -PARO40TA PO; +PARO40TA2 PO; -SERT-141 PO; +SERT50TA PO
== END ==
LOC: M LAB REF 12:04
PROVIDERS: ATTEND Physician Assistant
DX: J45.20 Mild intermittent asthma, uncomplicated (principal); J02.9 Acute pharyngitis, unspecified

== ENCOUNTER 2016-05-25 08:24 | Inpatient (IN) | payer MEDICARE, MEDICAID ==
[~2016-05-25] VITALS: Ht 162.6 cm; Wt 75.6 kg
[~2016-05-25 08:24] MED LIST changes: -ACET50TAOT PO; -AUGM875T27 PO; -CHAN1PAK9 PO; -CLON0.5T PO
[2016-05-25] MEDS ORDERED: NS 1,000 ML IV ONE ×2 (09:00→12:30)
[2016-05-25] MEDS ORDERED: LEVEMIR (INSULIN DETEMIR) 1 UNITS/0.01ML SC SCH (09:00)
[2016-05-25] MEDS ORDERED: PROMETHAZINE INJ 25 MG/ML VIAL (J2550) IV ONE (09:00)
[2016-05-25 09:06] LABS: VENOUS BASE EXCESS -11.8 (-2.0-2.0); VENOUS O2 SATURATION 97.6 % (60.0-80.0); VENOUS PARTIAL PRESSURE CO2 31.3 mmHg (38.0-50.0); VENOUS PARTIAL PRESSURE O2 101.4 mmHg (30.0-50.0); VENOUS STANDARD HCO3 15.4 MEQ/L; VENOUS TOTAL CO2 14.8 MEQ/L (24.0-28.0)
[2016-05-25 09:07] LABS: BASO # 0.1 K/mm3 (0.0-0.2); BASO % 0.6 % (0.0-1.0); EOS # 0.1 K/mm3 (0.0-0.50); LARGE UNSTAINED CELL # 0.1 K/mm3 (0.0-0.4); LARGE UNSTAINED CELL % 1.3 % (0.0-4.0); LYMPH % 17.3 % (24.0-44.0); MEAN CORPUSCULAR HEMOGLOBIN 30.9 pg (27.0-33.0); MEAN CORPUSCULAR VOLUME 99.8 fl (80.0-96.0); MONO # 0.5 K/mm3 (0.0-0.8); MONO % 4.6 % (0.0-5.0); NEUTROPHILS # 8.1 K/mm3 (1.8-7.7); NEUTROPHILS % 75.2 % (36.0-66.0); PLATELET COUNT, AUTOMATED 342 k/mm3 (150-450); RED CELL DISTRIBUTION WIDTH 12.5 % (11.5-14.5); WHITE BLOOD COUNT 10.8 K/mm3 (4.0-10.0)
[2016-05-25] MEDS: IPRATROPIUM 0.5MG/ALBUTEROL 2.5MG INH SOL UD 3ML (DUONEB)(J7620) NEB SCH ×3 (09:08→09:38)
[2016-05-25 09:34] LABS: ALBUMIN 3.3 GM/DL (3.2-5.2); ALBUMIN/GLOBULIN RATIO 0.85 (1.00-1.93); ALKALINE PHOSPHATASE 142 U/L (45-117); ALT/SGPT 203 U/L (12-78); ANION GAP 22 MEQ/L (8-16); AST/SGOT 77 U/L (15-37); BILIRUBIN,DIRECT < 0.1 MG/DL (0.0-0.2); BILIRUBIN,TOTAL 0.4 MG/DL (0.2-1.0); BLOOD UREA NITROGEN 31 MG/DL (7-18); CALCIUM LEVEL 8.9 MG/DL (8.5-10.1); CARBON DIOXIDE LEVEL 15 MEQ/L (21-32); CHLORIDE LEVEL 92 MEQ/L (98-107); CREATININE FOR GFR 1.19 MG/DL (0.55-1.02); GLOMERULAR FILTRATION RATE 50.7 (>51); POTASSIUM SERUM 4.7 MEQ/L (3.5-5.1); SODIUM LEVEL 129 MEQ/L (136-145); TOTAL PROTEIN 7.2 GM/DL (6.4-8.2)
[2016-05-25 09:37] LABS: GLUCOSE, FASTING 648 MG/DL (70-105)
--- NOTE | 2016-05-25 09:54 | REP ---
REASON: Diabetic ketoacidosis. COMPARISON: 03/19/2016. FINDINGS: The technique utilized in obtaining the radiograph has magnified the cardiac silhouette and accentuated the interstitial markings. The superior mediastinal structures are midline. The cardiac silhouette is unremarkable in size, shape, and position. The diaphragmatic surfaces of the lungs are regular, and the costophrenic angles are clear. The pulmonary alanis are clear. The imaged osseous structures are intact. IMPRESSION: There is no acute cardiopulmonary disease. Signed by Klever Carrasco DO 05/25/2016 10:20 A
[2016-05-25] MEDS ORDERED: INSULIN HUMAN REGULAR 100 UNITS in NS 99 ML IV SCH ×2 (09:56→10:30)
[2016-05-25] MEDS ORDERED: INSULIN IV RATE CHANGE DOCUMENTATION ML/HR XX SCH (10:00)
[2016-05-25] MEDS ORDERED: HumuLIN R (REGULAR) INSULIN (NovoLIN R) **100U/ML** PER UNIT IV ONE (10:00)
[2016-05-25 11:05] LABS: VENOUS BASE EXCESS -18.4 (-2.0-2.0); VENOUS PARTIAL PRESSURE CO2 31.4 mmHg (38.0-50.0); VENOUS PARTIAL PRESSURE O2 82.4 mmHg (30.0-50.0); VENOUS STANDARD HCO3 11.1 MEQ/L; VENOUS TOTAL CO2 10.8 MEQ/L (24.0-28.0)
[2016-05-25] MEDS ORDERED: AUGM875T27 PO (11:13)
[2016-05-25] MEDS ORDERED: ACET50TAOT PO (11:13)
[2016-05-25] MEDS ORDERED: CHAN1PAK9 PO (11:16)
[2016-05-25] MEDS ORDERED: CLON0.5T PO (11:16)
[2016-05-25] MEDS ORDERED: ALBUTEROL SULFATE 2.5 MG/0.5 ML INH NEB SOLN NEB PRN (12:45)
[2016-05-25] MEDS ORDERED: MAALOX 30 ML SUSP *UDC PO PRN (12:45)
[2016-05-25] MEDS ORDERED: SODIUM CHLORIDE NASAL 0.65% SPRAY BTL (OCEAN) PRN (12:45)
[2016-05-25] MEDS: PARoxetine 20 MG TAB PO SCH (13:29)
[2016-05-25] MEDS: PANTOPRAZOLE 40MG INJ (PROTONIX) (C9113) IV SCH (13:29)
[2016-05-25] MEDS ORDERED: PROMETHAZINE INJ 25 MG/ML VIAL (J2550) IV PRN (13:30)
[2016-05-25] MEDS: ACETAMINOPHEN TAB 650MG DOSE (2X325MG) PO PRN (13:34)
[2016-05-25] MEDS ORDERED: NS 1,000 ML IV SCH (13:45)
[2016-05-25 14:43] LABS: ALBUMIN 3.2 GM/DL (3.2-5.2); CALCIUM LEVEL 8.6 MG/DL (8.5-10.1); CREATININE FOR GFR 1.27 MG/DL (0.55-1.02); PHOSPHORUS LEVEL 3.5 MG/DL (2.5-4.9); POTASSIUM SERUM 4.2 MEQ/L (3.5-5.1)
[2016-05-25 15:45] VITALS: BP 109/57
[2016-05-25] MEDS ORDERED: D5W/0.9% SODIUM CHLORIDE 1,000 ML IV SCH (16:45)
[2016-05-25] MEDS: ALBUTEROL SULFATE 2.5 MG/0.5 ML INH NEB SOLN NEB SCH ×2 (16:48→21:28)
[2016-05-25] MEDS ORDERED: MORPHINE 2 MG/ML 1ML SYRINGE IV ONE (17:00)
[2016-05-25 17:03] LABS: ALBUMIN 3.1 GM/DL (3.2-5.2); CALCIUM LEVEL 8.2 MG/DL (8.5-10.1); CREATININE FOR GFR 1.15 MG/DL (0.55-1.02); GLOMERULAR FILTRATION RATE 52.8 (>51); PHOSPHORUS LEVEL 2.6 MG/DL (2.5-4.9)
[2016-05-25] MEDS: MONTELUKAST 10 MG TAB PO SCH (17:21)
[2016-05-25] MEDS: METOCLOPRAMIDE 10 MG TAB PO SCH ×2 (17:22→21:39)
[2016-05-25 18:00] VITALS: BP 118/61
[2016-05-25] MEDS ORDERED: D5W/0.45% SODIUM CHLORIDE 1,000 ML IV SCH (18:15)
[2016-05-25] MEDS: NS 1,000 ML IV SCH (19:30)
[2016-05-25 20:00] VITALS: BP 120/70
[2016-05-25] MEDS ORDERED: CHLORHEXIDINE GLUCONATE 0.12 % 15ML UDC (PERIDEX ORAL RINSE) MT SCH (21:00)
[2016-05-25] MEDS: clonazePAM 0.5 MG TAB PO SCH (21:39)
[2016-05-25] MEDS: busPIRone 5 MG TAB PO SCH (21:39)
[2016-05-25] MEDS: ENOXAPARIN 40 MG/0.4 ML SYRINGE (J1650) SC SCH (21:40)
[2016-05-25] MEDS: LEVEMIR (INSULIN DETEMIR) 1 UNITS/0.01ML SC SCH (21:40)
--- NOTE | 2016-05-25 21:56 | HPE ---
DATE OF ADMISSION: 05/25/2016 CHIEF COMPLAINT: Nausea and vomiting. HISTORY OF PRESENT ILLNESS: This is a 50-year-old woman with type 1 diabetes who has had nausea and vomiting since at least yesterday. She was seen at Urgent Care approximately a week ago with cough and cold symptoms, started on antibiotic. She said that the cold had caused her asthma to act up. They wanted to put her on steroids but she did not want to take steroids as she does have a history of dvb-tm-vjlvlgl blood sugars while being on steroids. She has had nausea and vomiting, has not been able to eat. She did take her insulin last night and took 10 units of NovoLog this morning. She does not think she has had any fever or chills. Does have a headache. Does feel like she has a lot of reflux. She checked her urine which showed high ketones and her blood sugar reading was too high for her monitor to read. She came to the hospital. PAST HISTORY: Appears that her last hospitalization was for a complicated episode of hypoglycemia when she was quite obtunded and required some intensive care unit (ICU) care and even intubation. This was approximately one year ago. She has type 1 diabetes and is followed at [facility]. She has depression with anxiety. She has asthma problems. She quit smoking for 15 years, then recently restarted it due to stress, and has not smoked now for about a week. She has some chronic low back pain. She is disabled from her diabetes and depression. She has been experiencing more depression and anxiety recently because she now has a grandchild living with her because of his mother's drug abuse. She has seen Dr. Beth the psychiatrist who recommended that she increase her BuSpar, suggested starting clonazepam also, and recommended a change in her antidepressant medicine which she was not ready to do at that time. Also treated for hypertension, hyperlipidemia. Has had a transient ischemic attack (TIA) at one point, has had some memory loss. Has sleep apnea. She has had fluctuating liver function tests for the last 2 1/2 years, without anything specific on workup. It appears that she has had a cholecystectomy in the last few years. MEDICATIONS: She does have reflux, migraine headaches. She has many medicines that are as needed on her medication last. - regularly she is supposed to be taking 26 units of Lantus every evening; she is on sliding-scale insulin dose of Humalog before meals. She indicates that she takes 2 units for BS in 200s, 3 units for BS in 300s, 4 units for BS in 400s. She does not cover her h.s. blood sugars unless they are above 500. - She has been taking some amitriptyline 25 mg at bedtime - albuterol nebulizers or metered dose inhalers every four hours as needed - Singulair 10 mg daily - aspirin 81 mg daily - Zanaflex 4 mg as needed - Reglan 10 mg before meals and bedtime - iron 325 mg daily - omeprazole 40 mg daily - propranolol is reported to be a 20 mg every eight hours as needed - paroxetine 40 mg one and a half tablets daily - loratadine 10 mg daily - gabapentin 600 mg two tablets twice a day - buspirone 15 mg twice a day ALLERGIES: She considers herself gluten intolerant; does have a diagnosis of celiac disease. Allergies are also stated to PREDNISONE, PLASTIC TAPE and BAND-AIDS. FAMILY HISTORY: Father age 59. He may have had a myocardial infarction ([place]). Her mother is alive. She has asthma, has a benign brain tumor, hypertension, depression, hypothyroidism and heart murmur. Sisters have asthma and depression, and brother has allergies and has had a partial colectomy. She has two sons, one of whom has been a drug addict and is positive for hepatitis C. SOCIAL HISTORY: She resides with her boyfriend son and grandchild in [place]. She did not smoke for 15 years and then started up again a month or two ago and has not smoked in a week. She does not drink alcohol. She has caffeinated beverages up to five times day. She is disabled from her depression and diabetes. She follows a diabetic, gluten-free diet. Her records indicate that she selected her sister to be an alternate decision maker if she is not able to make her own decisions; unclear whether she has a formal healthcare proxy document. Community physician is Dr. Kraig Izquierdo. She also sees psychiatry at [facility] for endocrinology, Dr. Astudillo for OB, Dr. Bjearano for neurology. Has seen Dr. Hinojosa for pulmonary. REVIEW OF SYSTEMS: No fevers, chills, sweats or weight loss. Certainly has malaise for the last several days. She has blurry vision. She feels dizzy at times. Has some headache today, some cough, some palpitations. Cough is not productive. She is not feeling short of breath, not having any chest pains. No edema. She has some epigastric discomfort and nausea and vomiting, urinary frequency but no dysuria. Bowels are normal, not having any issues with blood in the stool or constipation. Has some chronic low back pain and some paresthesias in her fingers, depression she says feels better since change in medications. No bruising or bleeding issues. ASSESSMENT: This is a 50-year-old white female with diabetic ketoacidosis. She has been treated for a respiratory infection for the last week with an uncertain medication, and has had nausea and vomiting since yesterday, and her blood sugar is out of control. She has type 1 diabetes, gluten enteropathy, gastroesophageal reflux, anxiety and depression, hypertension, hyperlipidemia, and chronic back problems. PLAN: The patient will be brought in to our facility. She has already gotten intravenous (IV) fluids and insulin drip at 0.1 unit per kg. Her blood sugar did come from a high of 600 down to high 400s, and now gone back up to 525 and we increased her insulin drip a little bit. Her major complaint now is a headache and reflux, and we will be putting her on IV pantoprazole and she will be allowed some Tylenol for the headache. She will be again on insulin drip which will require intensive care unit (ICU) admission. In addition, we have ordered additional IV fluids for her, and that may one of the reasons why her sugar went up is that her fluid was discontinued after 1000 units bolus in the emergency room. I would anticipate a short period time in the ICU until she is no longer requiring the insulin drip, and then resuming sliding scale and Lantus. I have not put her on any medications other than for wheezing, reflux, diabetes, depression and anxiety at this point. CHARLY
[2016-05-25 22:10] LABS: ALBUMIN 2.9 GM/DL (3.2-5.2); CREATININE FOR GFR 1.1 MG/DL (0.55-1.02); GLOMERULAR FILTRATION RATE 55.5 (>51); PHOSPHORUS LEVEL 3.9 MG/DL (2.5-4.9); POTASSIUM SERUM 4.8 MEQ/L (3.5-5.1)
[2016-05-25] MEDS ORDERED: HumaLOG INSULIN (NovoLOG) PER UNIT SC ONE (22:10)
[2016-05-25] MEDS ORDERED: HumuLIN R (REGULAR) INSULIN (NovoLIN R) **100U/ML** PER UNIT SC ONE (22:10)
[2016-05-26] VITALS: BP 129/69
[2016-05-26 04:00] VITALS: BP 120/65
[2016-05-26 05:13] LABS: ALBUMIN 2.7 GM/DL (3.2-5.2); ALBUMIN/GLOBULIN RATIO 0.87 (1.00-1.93); ALKALINE PHOSPHATASE 100 U/L (45-117); ALT/SGPT 183 U/L (12-78); AST/SGOT 157 U/L (15-37); BILIRUBIN,DIRECT < 0.1 MG/DL (0.0-0.2); BILIRUBIN,TOTAL 0.4 MG/DL (0.2-1.0); BLOOD UREA NITROGEN 19 MG/DL (7-18); CALCIUM LEVEL 7.8 MG/DL (8.5-10.1); CARBON DIOXIDE LEVEL 24 MEQ/L (21-32); CHLORIDE LEVEL 109 MEQ/L (98-107); CREATININE FOR GFR 0.82 MG/DL (0.55-1.02); GLOMERULAR FILTRATION RATE > 60.0 (>51); GLUCOSE, FASTING 160 MG/DL (70-105); POTASSIUM SERUM 3.4 MEQ/L (3.5-5.1); TOTAL PROTEIN 5.8 GM/DL (6.4-8.2)
[2016-05-26 05:43] LABS: ANION GAP 9 MEQ/L (8-16); PHOSPHORUS LEVEL 2.6 MG/DL (2.5-4.9); SODIUM LEVEL 142 MEQ/L (136-145)
[2016-05-26] MEDS: NS 1,000 ML IV SCH (06:25)
[2016-05-26 08:00] VITALS: BP 129/67
[2016-05-26] MEDS: ALBUTEROL SULFATE 2.5 MG/0.5 ML INH NEB SOLN NEB SCH ×4 (08:23→19:04)
[2016-05-26] MEDS: PARoxetine 20 MG TAB PO SCH (08:56)
[2016-05-26] MEDS: ASPIRIN 81 MG ENTERIC TAB PO SCH (08:56)
[2016-05-26] MEDS: MONTELUKAST 10 MG TAB PO SCH (08:56)
[2016-05-26] MEDS: busPIRone 5 MG TAB PO SCH ×2 (08:56→20:33)
[2016-05-26] MEDS: PANTOPRAZOLE 40MG INJ (PROTONIX) (C9113) IV SCH (08:56)
[2016-05-26] MEDS: METOCLOPRAMIDE 10 MG TAB PO SCH ×4 (08:59→20:33)
[2016-05-26] MEDS: clonazePAM 0.5 MG TAB PO SCH (08:59)
[2016-05-26] MEDS ORDERED: DEXTROSE 50% 50 ML SYRINGE IV PRN (10:45)
[2016-05-26] MEDS ORDERED: GLUCAGON FOR INJ 1 MG VIAL (J1610) SC PRN (10:45)
[2016-05-26] MEDS ORDERED: GLUCOSE 4 GM CHEW TABLET PO PRN (10:45)
[2016-05-26 11:00] VITALS: BP 116/62
[2016-05-26] MEDS: ACETAMINOPHEN TAB 650MG DOSE (2X325MG) PO PRN (11:03)
[2016-05-26] MEDS: HumaLOG INSULIN (NovoLOG) PER UNIT SC SCH ×3 (12:00→20:06)
[2016-05-26 13:28] VITALS: BP 144/71
[2016-05-26] MEDS ORDERED: clonazePAM 0.5 MG TAB PO PRN (15:00)
[2016-05-26] MEDS: POTASSIUM CHLORIDE 10 MEQ SR TABLET PO SCH ×2 (15:13→20:32)
[2016-05-26] MEDS: LEVEMIR (INSULIN DETEMIR) 1 UNITS/0.01ML SC SCH (20:33)
[2016-05-26] MEDS: ENOXAPARIN 40 MG/0.4 ML SYRINGE (J1650) SC SCH (20:33)
--- NOTE | 2016-05-26 21:29 | IPN ---
DATE: 05/25/2016 Time is 1915 hours. Ms. Sierra is seen in the ICU. She is feeling better. She reports that her headache is down to a 4/10 after a dose of 2 mg Morphine, her nausea has improved. She has eaten some dinner and kept it down. She does still have some cough intermittently. She reports that at home she was taking 26 units of Lantus around 7 o'clock at night. Her insulin coverage was such that if her sugar was 200-300 she would take 2 units, if it was 300-400, she would take 4 units, 400-500 she would take 4 units of short-acting insulin. She would not cover herself at bedtime unless her sugar was 500 or more. She indicates that she "bottoms out readily." We reviewed her most recent labs with IV D5 half-normal saline running at 150 mL/hour. Her most recent fingerstick blood sugar was 308. Her labs from 04:30 p.m. showed glucose of 262, BUN of 23, creatinine 1.15, carbon dioxide is now up to 25, sodium 138, potassium 4.0. What I have done in response to these readings is to discontinue her insulin drip. We will put her on saline instead of glucose containing fluids because of the elevated blood sugar. Will get her restarted on her Lantus at this time, however will be giving her Levemir since it is the hospital's substitute for Lantus. Will be monitoring her blood sugars throughout the night. Will get another renal profile done at about 09:30 p.m. We will be checking her renal functions as well as her liver functions which were elevated this morning. She reports she is not having any abdominal pain at this time. CHARLY
[2016-05-26 22:00] VITALS: BP 117/54
[2016-05-27 06:00] VITALS: BP 158/88
[2016-05-27] MEDS: ALBUTEROL SULFATE 2.5 MG/0.5 ML INH NEB SOLN NEB SCH ×4 (07:08→19:12)
[2016-05-27] MEDS: HumaLOG INSULIN (NovoLOG) PER UNIT SC SCH ×4 (07:30→20:48)
[2016-05-27 07:39] LABS: ALBUMIN/GLOBULIN RATIO 0.86 (1.00-1.93); ALKALINE PHOSPHATASE 95 U/L (45-117); ALT/SGPT 133 U/L (12-78); ANION GAP 7 MEQ/L (8-16); AST/SGOT 49 U/L (15-37); BILIRUBIN,DIRECT < 0.1 MG/DL (0.0-0.2); BILIRUBIN,TOTAL 0.3 MG/DL (0.2-1.0); BLOOD UREA NITROGEN 11 MG/DL (7-18); CARBON DIOXIDE LEVEL 29 MEQ/L (21-32); CHLORIDE LEVEL 109 MEQ/L (98-107); CREATININE FOR GFR 0.57 MG/DL (0.55-1.02); GLOMERULAR FILTRATION RATE > 60.0 (>51); PHOSPHORUS LEVEL 1.9 MG/DL (2.5-4.9); POTASSIUM SERUM 3.3 MEQ/L (3.5-5.1); SODIUM LEVEL 145 MEQ/L (136-145); TOTAL PROTEIN 6.5 GM/DL (6.4-8.2)
[2016-05-27 07:41] LABS: GLUCOSE, FASTING 34 MG/DL (70-105)
[2016-05-27] MEDS ORDERED: AUGMENTIN 875 MG TAB PO SCH (09:00)
[2016-05-27] MEDS: ASPIRIN 81 MG ENTERIC TAB PO SCH (09:45)
[2016-05-27] MEDS: PARoxetine 20 MG TAB PO SCH (09:45)
[2016-05-27] MEDS: POTASSIUM CHLORIDE 10 MEQ SR TABLET PO SCH ×2 (09:45→20:49)
[2016-05-27] MEDS: MONTELUKAST 10 MG TAB PO SCH (09:45)
[2016-05-27] MEDS: busPIRone 5 MG TAB PO SCH ×2 (09:49→20:49)
[2016-05-27] MEDS ORDERED: GABAPENTIN 300 MG CAP PO SCH (09:54)
[2016-05-27] MEDS ORDERED: VARENICLINE 1 MG TABLET PO SCH (09:54)
[2016-05-27] MEDS ORDERED: MONTELUKAST 10 MG TAB PO SCH (09:54)
[2016-05-27] MEDS ORDERED: METOCLOPRAMIDE 10 MG TAB PO SCH (09:54)
[2016-05-27] MEDS ORDERED: VITAMIN D 1,000 INTERNATIONAL UNITS TABLET PO SCH (09:54)
[2016-05-27] MEDS ORDERED: LORATADINE 10 MG TAB PO SCH (09:54)
[2016-05-27] MEDS ORDERED: LISINOPRIL 10 MG TAB PO SCH (09:54)
[2016-05-27] MEDS ORDERED: AMITRIPTYLINE 25 MG TAB PO SCH (09:54)
[2016-05-27] MEDS ORDERED: PARoxetine 20 MG TAB PO SCH (09:54)
[2016-05-27] MEDS ORDERED: busPIRone 5 MG TAB PO SCH (09:54)
[2016-05-27] MEDS ORDERED: ASPIRIN 81 MG ENTERIC TAB PO SCH (09:54)
--- NOTE | 2016-05-27 09:57 | IPN ---
DATE: 05/26/2016 The patient is seen in the intensive care unit. She says she is feeling lot better. She still does have a little cough, which is nonproductive. Her nausea is quite a bit better. Has not had any vomiting, not feeling dizzy or lightheaded. Not having any abdominal pain, not having any chest discomfort, is not really short of breath. Is no longer on an insulin drip. She spent a night on a saline infusion and she received her long-acting insulin at bedtime and did get 8 units of Humalog about 10:00 p.m. last night because her sugar had gone up again into the 500s. Subsequently, however, it came down 401, 228, 155, 63 and 102. Current medications are aspirin, Lovenox, buspirone, clonazepam, Levemir metoclopramide. Albuterol nebulizers as needed, Tylenol as needed, as needed promethazine, as needed albuterol, as needed Maalox. On pantoprazole, Singulair and paroxetine. PHYSICAL EXAMINATION: On examination temperature is 98.9, and blood pressure 120/65, pulse 86, respirations 16. She appears quite comfortable. Does have a raspy cough. Her eyes are clear. Speech is clear. NECK: There is no neck masses, tenderness or adenopathy. No carotid bruits. LUNGS: Show some scattered wheezes and rhonchi. HEART: Has regular rhythm without any murmur, click or gallop. ABDOMEN: Is soft, nontender without any masses or organomegaly. Bowel sounds are active. There is no edema. Blood sugar this morning on her chemistries was 160, BUN 19, creatinine 0.8, sodium 142, potassium 3.4, bicarb 19, her AST is 157, her ALT is 183. The AST is higher. The ALT is lower. Alkaline phosphatase is normal. ASSESSMENT: 1. Diabetic ketoacidosis. Sugars are improved and acidosis is for the most part corrected. 2. Asthma exacerbation secondary to upper respiratory infection. 3. Type 1 diabetes. 4. Gluten enteropathy. 5. Anxiety and depression. 6. Gastroesophageal reflux. 7. Chronic back pain. 8. Hypokalemia. PLAN: The patient will be transferred to the floor today. We will supplement her potassium by mouth. We did discuss her medication regimen at home, which is as follows: She takes albuterol metered-dose inhaler every 4 hours 2 puff as needed. She had been taking Augmentin 875/100 from Urgent care starting on 05/22/2016. She takes Tylenol 1000 mg every 6 hours as needed. She reports she takes this only one to two times a week. She takes amitriptyline 25 mg at bedtime at bedtime as needed for sleep, aspirin 81 mg daily, vitamin B complex daily, buspirone 15 mg twice a day, clonazepam she takes 0.5 mg once a day as needed for anxiety and she says she has only used this once in the last 2 weeks, vitamin D 1000 units daily, ferrous sulfate 325 mg daily, gabapentin 600 mg three times a day. She is no longer taking indapamide. Lantus 26 units daily, Humalog according to sliding-scale, which is significantly different from our traditional sliding scale in that she has much lower doses. Xopenex via nebulizer three times day as needed, lisinopril 10 mg daily, loratadine 10 mg daily, metoclopramide 10 mg before meals and bedtime. She indicates she takes her Montelukast 10 grams daily as needed. She takes omeprazole 40 mg twice a day, Zofran 8 mg three times a day as needed but uses this quite often. She has prescription for Percocet 5/325 mg up to four times a day. She indicates that she takes this once or twice a week for back pain. She has paroxetine that she is taking diw-ruu-yohs 40 mg tablets a day, propranolol 10 mg three times a day is on her left but she indicates she is not taking this. She has a prescription for Sumatriptan injection which she is only taking once a month. She has Zanaflex 4 mg three times day as needed for back pain and muscle tightness and takes it once or twice a day. Taking Chantix 1 mg twice a day and is not taking her Zonisamide 100 mg twice a day. Hopefully will be able to discharge her in the morning. [facility]
[2016-05-27] MEDS ORDERED: GLUCAGON FOR INJ 1 MG VIAL (J1610) IM PRN (10:00)
[2016-05-27] MEDS ORDERED: PERCOCET 5MG/325MG TAB PO PRN (10:00)
[2016-05-27] MEDS ORDERED: tiZANidine 4 MG TAB PO PRN (10:00)
[2016-05-27] MEDS ORDERED: clonazePAM 0.5 MG TAB PO PRN (10:00)
[2016-05-27] MEDS ORDERED: ACETAMINOPHEN 500 MG TAB PO PRN (10:00)
[2016-05-27] MEDS: PANTOPRAZOLE 40MG TAB (PROTONIX) PO SCH (10:14)
[2016-05-27] MEDS: METOCLOPRAMIDE 10 MG TAB PO SCH ×4 (10:14→20:49)
--- NOTE | 2016-05-27 10:17 | IPNPDOC ---
Subjective Date Seen The patient was seen on 05/27/16. Subjective Chief Complaint/HPI The patient is a 50-year-old female admitted with a reason for visit of DKA. Events since last encounter Hypoglycemic episode of 36 this am. resolved with juice. Feeling well and back to baseline. K+ 3.3 Constitutional: Denies: Chills, Fever, Night Sweats Cardiovascular: Denies: Chest Pain, Lt Headedness, Orthopnea, Palpitations, Paroxysmal Noc. Dyspnea Gastrointestinal: Denies: Abdominal Pain, Constipation, Diarrhea, Nausea, Vomiting Genitourinary: Denies: Dysuria, Frequency, Incontinence, Retention Psych: Reports: Mood Normal, Denies: Depression, Memory Issues Objective Physical Examination General Exam: Positive: Alert, No Acute Distress, Negative: Cooperative, Mild Distress, Moderate Distress, Other, Severe Distress Eye Exam: Positive: Conjunctiva & lids normal, EOMI, PERRLA, Negative: Sclera icteric Neck Exam: Positive: Supple, Negative: JVD, thyromegaly Chest Exam: Positive: Clear to auscultation, Normal air movement Heart Exam: Positive: Normal S1, Normal S2, Rate Normal, Regular Rhythm, Negative: Murmurs, Rubs Extremity Exam: Positive: Normal pulses, Negative: Clubbing, Cyanosis, Edema Skin Exam: Positive: Nl turgor and temperature, Negative: Breakdown, Rash Psych Exam: Positive: Mental status NL, Mood NL, Oriented x 3 Assessment /Plan Problems (1) DKA (diabetic ketoacidoses) Status: Acute Response to Treatment: Improving Problem Specific Plan: Monitor Clinically Problem Text: Improving glucose levels. Continue current regimen (2) Hypoglycemia Status: Acute Problem Text: 36 this am. encouraged bed time snack: Complex carb with lean protein. KES: Decrease levemir to 22u QHS (3) Hypokalemia Status: Acute Problem Text: Level of 3.3. Will adjust replacement. (4) Hyperlipidemia Status: Chronic (5) JERAD (obstructive sleep apnea) Status: Chronic Response to Treatment: Stable Problem Specific Plan: Monitor Clinically (6) Pseudoseizure Status: Chronic Response to Treatment: Stable Problem Specific Plan: Monitor Clinically (7) Celiac disease Status: Chronic Response to Treatment: Stable (8) CKD (chronic kidney disease) Status: Chronic Response to Treatment: Stable Problem Specific Plan: Monitor Clinically (9) Anxiety Status: Chronic (10) GERD (gastroesophageal reflux disease) Status: Chronic Problem Text: Patient reports GERD symptoms on pantoprazole 40 mg daily; was also having worsened symptoms on omeprazole as an outpatient; has epigastric tenderness today. Will add famotidine 20 mg daily. Plan/VTE VTE Prophylaxis Ordered?: Yes (Lovenox) Plan Family Medicine Attending Note: I saw Ms. Sierra this afternoon; I d/w Nubia Ervin NP and I agree with her note as above. Will monitor overnight due to significant hypoglycemia this morning and will cut back a bit on her levemir; will also recheck potassium in the morning. Famotidine added today due to uncontrolled GERD symptoms. (KES) VS, I&O, 24H, Fishbone Vital Signs/I&O Vital Signs Date Time Temp Pulse Resp B/P Pulse Ox O2 Delivery O2 Flow Rate FiO2 05/27/16 06:00 97.6 70 18 158/88 98 Room Air I&O- Last 24 Hours up to 6 AM 05/27/16 05:59 Intake Total 3450 ml Output Total 2275 ml Balance 1175 ml Laboratory Data 24H LABS Laboratory Tests 2 05/26/16 12:38: Bedside Glucose (Misc Panel) 171H 05/26/16 16:41: Bedside Glucose (Misc Panel) 329H 05/26/16 20:04: Bedside Glucose (Misc Panel) 388H 05/27/16 06:16: Aspartate Amino Transf (AST/SGOT) 49H, Alanine Aminotransferase (ALT/SGPT) 133H , Alkaline Phosphatase 95, Total Bilirubin 0.3, Direct Bilirubin < 0.1, Albumin 3.0L, Albumin/Globulin Ratio 0.86L, Anion Gap 7L, Calcium Level 9.0#, Glomerular Filtration Rate > 60.0, Phosphorus Level 1.9#L, Total Protein 6.5 05/27/16 07:45: Bedside Glucose (Misc Panel) 107H CBC/BMP Laboratory Tests 05/27/16 06:16 Nubia Ervin May 27, 2016 10:17 REINIER LARSON MD May 27, 2016 15:53
[2016-05-27] MEDS ORDERED: POTASSIUM CHLORIDE 10 MEQ SR TABLET PO ONE (10:45)
[2016-05-27] MEDS: VARENICLINE 1 MG TABLET PO SCH ×2 (13:28→20:49)
[2016-05-27 14:00] VITALS: BP 148/75
[2016-05-27] MEDS: ENOXAPARIN 40 MG/0.4 ML SYRINGE (J1650) SC SCH (20:47)
[2016-05-27] MEDS ORDERED: LEVEMIR (INSULIN DETEMIR) 1 UNITS/0.01ML SC SCH (21:00)
[2016-05-27] MEDS ORDERED: FAMOTIDINE 20 MG TAB PO SCH (21:00)
[2016-05-28 05:52] LABS: BASO % 0.7 % (0.0-1.0); EOS # 0.2 K/mm3 (0.0-0.50); EOS % 2.6 % (0.0-3.0); LARGE UNSTAINED CELL # 0.1 K/mm3 (0.0-0.4); LARGE UNSTAINED CELL % 1.8 % (0.0-4.0); LYMPH % 15.5 % (24.0-44.0); MEAN CORPUSCULAR HEMOGLOBIN 30.8 pg (27.0-33.0); MEAN CORPUSCULAR HGB CONC 32.4 g/dl (32.0-36.5); MONO # 0.3 K/mm3 (0.0-0.8); MONO % 4.2 % (0.0-5.0); NEUTROPHILS # 4.7 K/mm3 (1.8-7.7); NEUTROPHILS % 75.2 % (36.0-66.0); PLATELET COUNT, AUTOMATED 242 k/mm3 (150-450); RED CELL DISTRIBUTION WIDTH 12.8 % (11.5-14.5); WHITE BLOOD COUNT 6.2 K/mm3 (4.0-10.0)
[2016-05-28 06:00] VITALS: BP 143/73
[2016-05-28 06:06] LABS: ALBUMIN 2.9 GM/DL (3.2-5.2); ALBUMIN/GLOBULIN RATIO 0.85 (1.00-1.93); ALKALINE PHOSPHATASE 91 U/L (45-117); ALT/SGPT 102 U/L (12-78); ANION GAP 6 MEQ/L (8-16); AST/SGOT 28 U/L (15-37); BILIRUBIN,DIRECT < 0.1 MG/DL (0.0-0.2); BILIRUBIN,TOTAL 0.2 MG/DL (0.2-1.0); BLOOD UREA NITROGEN 9 MG/DL (7-18); CALCIUM LEVEL 8.5 MG/DL (8.5-10.1); CARBON DIOXIDE LEVEL 29 MEQ/L (21-32); CHLORIDE LEVEL 107 MEQ/L (98-107); CREATININE FOR GFR 0.59 MG/DL (0.55-1.02); GLOMERULAR FILTRATION RATE > 60.0 (>51); GLUCOSE, FASTING 56 MG/DL (70-105); PHOSPHORUS LEVEL 2.4 MG/DL (2.5-4.9); POTASSIUM SERUM 3.9 MEQ/L (3.5-5.1); SODIUM LEVEL 142 MEQ/L (136-145); TOTAL PROTEIN 6.3 GM/DL (6.4-8.2)
[2016-05-28] MEDS: ALBUTEROL SULFATE 2.5 MG/0.5 ML INH NEB SOLN NEB SCH (07:16)
[2016-05-28] MEDS: HumaLOG INSULIN (NovoLOG) PER UNIT SC SCH (07:30)
[2016-05-28] MEDS: busPIRone 5 MG TAB PO SCH (07:47)
[2016-05-28] MEDS: POTASSIUM CHLORIDE 10 MEQ SR TABLET PO SCH (07:48)
[2016-05-28] MEDS: VARENICLINE 1 MG TABLET PO SCH (07:48)
[2016-05-28] MEDS: PARoxetine 20 MG TAB PO SCH (07:48)
[2016-05-28] MEDS: METOCLOPRAMIDE 10 MG TAB PO SCH (07:48)
[2016-05-28] MEDS: MONTELUKAST 10 MG TAB PO SCH (07:49)
[2016-05-28] MEDS: PANTOPRAZOLE 40MG TAB (PROTONIX) PO SCH (07:49)
[2016-05-28] MEDS: ASPIRIN 81 MG ENTERIC TAB PO SCH (07:49)
--- NOTE | 2016-05-28 10:23 | DSES ---
DATE OF ADMISSION: 05/25/2016 DATE OF DISCHARGE: 05/28/2016 ATTENDING PHYSICIAN: Dr. Reji Fenton PRIMARY CARE PROVIDER: Dr. Kraig Izquierdo and Nubia Ervin HISTORY OF PRESENT ILLNESS: 50-year-old female who presented to [facility] emergency room for complaints of nausea and vomiting since the day prior. She had been seen at an urgent care approximately one week prior to presentation and placed on antibiotics. She felt that her cold caused her asthma to act up and had declined steroid therapy secondary to her significant diabetes. The patient does have a history of diabetic ketoacidosis in the presence of infectious process or colds. Workup in the emergency room did prove that she was in diabetic ketoacidosis. The patient was subsequently admitted. HOSPITAL COURSE: The patient was admitted to intensive care unit (ICU) and placed on insulin drip, as well as intravenous fluids. The patient was removed off of insulin drip and within 24 hours was placed back on home dose equivalent Levemir, as Lantus is non-formulary in this facility. She did have some issues with hypoglycemia in the morning; however, she had not taken a snack prior. She did have some slight hypoglycemia this morning at 52; however, the patient states that she was up overnight and was restless. This is normal for her. The patient did resolve with a snack and feels well today. She is anxious to return home. Hemoglobin and hematocrit are stable. Chemistries show a normal sodium, potassium, and renal function has returned to normal. Phosphorous is slightly low at 2.4. ALT is mildly elevated at 102; however, appears to be trending down from an elevated ALT of 183 two days ago. PHYSICAL EXAMINATION: VITAL SIGNS: Stable. She is afebrile. Heart rate is 68, temperature 97.8, blood pressure 143/73, oxygen saturation 98% on room air. HEENT: Neck supple without lymphadenopathy or jugular venous distention (JVD). CARDIOVASCULAR: Heart regular rate and rhythm. LUNGS: Clear to auscultation bilaterally. ABDOMEN: Soft and nontender with positive bowel sounds times all four quadrants. EXTREMITIES: Bilateral lower extremities are without any edema. NEUROLOGIC: She is alert and oriented times three. No visible tremors appreciated. PSYCHIATRIC: Affect is appropriate. Mildly flat. Conversation is congruent. Maintains eye contact. ASSESSMENT: 1. Diabetic ketoacidosis 2. Anxiety and depression. 3. Hypertension. 4. Hyperlipidemia. 5. Chronic back problems. 6. Celiac disease. 7. Gastroesophageal reflux disease (GERD). PLAN: The patient will be discharged home. She will followup with primary care provider, Nubia Ervin, on 06/04/2016 at 2:00 p.m. Diet is carbohydrate consistent. Activity is as tolerated. MEDICATIONS: - Tylenol 500 mg tablets two by mouth every 6 hours as needed for pain - albuterol sulfate inhaler two puffs every 4 hours as needed for shortness of breath - amitriptyline 25 mg one by mouth at night - Augmentin 875 mg one by mouth twice a day - aspirin 81 mg one daily - vitamin B complex one tablet by mouth daily - buspirone 15 mg by mouth twice a day - vitamin D 1000 International Units by mouth daily - clonazepam 0.5 mg by mouth daily as needed for anxiety - ferrous sulfate 325 mg by mouth daily - gabapentin 600 mg by mouth three times a day - Glucagon intramuscularly as needed for low blood sugar - indapamide 2.5 mg by mouth daily - Lantus 26 units subcutaneously at night - Lispro via sliding scale subcutaneously before meals - levalbuterol 0.63 mg via inhalation three times a day as needed for shortness of breath - Lisinopril 10 mg by mouth daily - loratadine 10 mg by mouth daily - metoclopramide 10 mg by mouth before food and nightly - Singulair 10 mg by mouth daily - multivitamin one daily - omeprazole 20 mg two by mouth twice a day - Zofran 4 mg tablets, she may take two by mouth three times a day as needed for nausea - oxycodone/acetaminophen 5/325 mg one tablet by mouth four times a day as needed for pain - paroxetine 40 mg by mouth daily - propranolol 10 mg by mouth three times a day as needed for anxiety - sumatriptan 6 mg subcutaneous as directed as needed for migraine - tizanidine 4 mg by mouth three times a day as needed - Chantix continuing month pack 1 mg by mouth twice a day - zonisamide 100 mg by mouth twice a day The patient is discharged in stable and satisfactory condition with no further questions at the time of discharge. Attending note: I agree with the discharge plan of care as discussed and documented above by Jocelin Ervin. Patient was discharged prior to being seen by me. At the time of discharge, her blood sugars were controlled, her anion gap was closed, and she had plan follow-up with her primary care provider. Reji Fenton MD [facility]
== END 2016-05-28 10:48 | disposition home or self-care (01) | DRG 638 ==
LOC: M ED 12:56 → M ED INP 13:01 → M ICU 15:43 → M MSPAV 05-26 13:26
PROVIDERS: ADMIT Family Medicine; ATTEND Family Medicine
DX: E10.10 Type 1 diabetes mellitus with ketoacidosis without coma (principal); N17.9 Acute kidney failure, unspecified; J45.901 Unspecified asthma with (acute) exacerbation; F41.9 Anxiety disorder, unspecified; F32.9 Major depressive disorder, single episode, unspecified; E78.5 Hyperlipidemia, unspecified; K21.9 Gastro-esophageal reflux disease without esophagitis; K90.0 Celiac disease; Z79.82 Long term (current) use of aspirin; Z79.899 Other long term (current) drug therapy; Z79.4 Long term (current) use of insulin; I10 Essential (primary) hypertension; M54.5 Low back pain; Z88.8 Allergy status to other drugs, medicaments and biological substances; E87.6 Hypokalemia; G47.33 Obstructive sleep apnea (adult) (pediatric)

== ENCOUNTER → 2016-06-13 | Outpatient (REF) | payer MEDICARE, MEDICAID ==
[~2016-06-13] MED LIST changes: +ACET50TAOT PO; +AUGM875T27 PO; +CHAN1PAK9 PO; +CLON0.5T PO
[2016-06-13 13:14] LABS: ALBUMIN 3.4 GM/DL (3.2-5.2); ALBUMIN/GLOBULIN RATIO 0.97 (1.00-1.93); ALKALINE PHOSPHATASE 104 U/L (45-117); ALT/SGPT 57 U/L (12-78); ANION GAP 6 MEQ/L (8-16); AST/SGOT 25 U/L (15-37); BILIRUBIN,TOTAL 0.3 MG/DL (0.2-1.0); BLOOD UREA NITROGEN 11 MG/DL (7-18); CARBON DIOXIDE LEVEL 32 MEQ/L (21-32); CHLORIDE LEVEL 103 MEQ/L (98-107); CHOLESTEROL LEVEL 256 MG/DL (<200); CREATININE FOR GFR 0.71 MG/DL (0.55-1.02); GLOMERULAR FILTRATION RATE > 60.0 (>51); GLUCOSE, FASTING 114 MG/DL (70-105); POTASSIUM SERUM 4.4 MEQ/L (3.5-5.1); SODIUM LEVEL 141 MEQ/L (136-145); TOTAL PROTEIN 6.9 GM/DL (6.4-8.2); TRIGLYCERIDES LEVEL 80 MG/DL (<150)
[2016-06-13 13:15] LABS: BASO # 0.1 K/mm3 (0.0-0.2); BASO % 1.7 % (0.0-1.0); EOS # 0.3 K/mm3 (0.0-0.50); EOS % 4.7 % (0.0-3.0); LARGE UNSTAINED CELL # 0.1 K/mm3 (0.0-0.4); LARGE UNSTAINED CELL % 2.4 % (0.0-4.0); LYMPH % 33.5 % (24.0-44.0); MEAN CORPUSCULAR HEMOGLOBIN 32.1 pg (27.0-33.0); MEAN CORPUSCULAR VOLUME 97.2 fl (80.0-96.0); MONO # 0.3 K/mm3 (0.0-0.8); MONO % 5.2 % (0.0-5.0); NEUTROPHILS # 2.9 K/mm3 (1.8-7.7); NEUTROPHILS % 52.5 % (36.0-66.0); PLATELET COUNT, AUTOMATED 344 k/mm3 (150-450); RED CELL DISTRIBUTION WIDTH 13.1 % (11.5-14.5); WHITE BLOOD COUNT 5.5 K/mm3 (4.0-10.0)
== END ==
LOC: M SFHCPLAZ 08:57
PROVIDERS: ATTEND Nurse Practitioner Family
DX: E11.9 Type 2 diabetes mellitus without complications (principal)

== ENCOUNTER → 2016-07-10 | Outpatient (CLI) | payer MEDICARE, MEDICAID ==
[~2016-07-10] MED LIST changes: +AMMO12CR4 TOP; +BUSP30TA PO; +LIDO1OIN2 TOP; +MIRA33504 PO; +ONDA8TAB8 PO; +PROP1TAB29 PO; +SENN8.6T8 PO; +TOUJ1.2I SC
--- NOTE | 2016-07-12 14:07 | DEXA ---
AP SPINE L1 - L4 1.009 -1.5 -1.2 LT FEMUR TOTAL 0.828 -1.4 -1.1 RT FEMUR TOTAL 0.804 -1.6 -1.3 TOTAL BODY TOTAL OTHER DUAL FEMUR FRAX* ASSESSMENT Risk factors: History of adult fracture, insulin-dependent diabetic, premature menopause. 10 year probability of fracture Major osteoporotic fracture 9.5 % Hip fracture 0.7 % COMMENTS: There is low bone density of the spine and hips. FOLLOW-UP: Recommendation for the next bone density exam: 2 years. CHARLY
== END ==
LOC: M WHC 10:37
PROVIDERS: ATTEND Nurse Practitioner Family
DX: Z13.820 Encounter for screening for osteoporosis (principal); M85.9 Disorder of bone density and structure, unspecified

== ENCOUNTER 2016-07-13 15:19 | Inpatient (IN) | payer MEDICARE, MEDICAID ==
[~2016-07-13] VITALS: Ht 162.6 cm; Wt 78.9 kg
[~2016-07-13 15:19] MED LIST changes: -AMMO12CR4 TOP; -BUSP30TA PO; -LIDO1OIN2 TOP; -MIRA33504 PO; -ONDA8TAB8 PO; -PROP1TAB29 PO; -SENN8.6T8 PO; -TOUJ1.2I SC
[2016-07-13] MEDS ORDERED: DEXTROSE 50% 50 ML VIAL IV ONE (16:00)
[2016-07-13] MEDS ORDERED: NS 500 ML IV ONE (16:00)
[2016-07-13 16:46] LABS: BASO # 0.1 K/mm3 (0.0-0.2); BASO % 0.7 % (0.0-1.0); EOS # 0.6 K/mm3 (0.0-0.50); EOS % 3.7 % (0.0-3.0); LARGE UNSTAINED CELL # 0.2 K/mm3 (0.0-0.4); LARGE UNSTAINED CELL % 1.5 % (0.0-4.0); LYMPH # 2.9 K/mm3 (1.5-4.5); LYMPH % 16.4 % (24.0-44.0); MEAN CORPUSCULAR HGB CONC 33.8 g/dl (32.0-36.5); MEAN CORPUSCULAR VOLUME 94.7 fl (80.0-96.0); MONO # 0.6 K/mm3 (0.0-0.8); MONO % 3.7 % (0.0-5.0); NEUTROPHILS # 11.9 K/mm3 (1.8-7.7); NEUTROPHILS % 74.1 % (36.0-66.0); PLATELET COUNT, AUTOMATED 306 k/mm3 (150-450); RED CELL DISTRIBUTION WIDTH 12.9 % (11.5-14.5)
--- NOTE | 2016-07-13 16:57 | REP ---
CT Head without contrast HISTORY: Fall COMPARISON: 03/19/2016 There is no intraparenchymal hemorrhage, acute infarct, mass or midline shift. The small 9 mm meningioma present overlying the left frontal lobe at the vertex seen in a previous MR examination is not seen in the present examination. The ventricular system is normal in appearance. There is no extra cerebral collection. There is no fracture. The visualized sinuses are clear. IMPRESSION: There is no intracranial lesion. Signed by Grant Grajeda MD 07/13/2016 04:49 P
[2016-07-13] MEDS ORDERED: KETOROLAC 30 MG/ML VIAL (J1885) IV ONE (17:30)
[2016-07-13] MEDS ORDERED: ONDANSETRON 4 MG ORAL DISINTEGRATING TAB (S0181) PO PRN (18:15)
[2016-07-13] MEDS ORDERED: SUMAtriptan SUCCINATE 6 MG/0.5 ML VIAL SC PRN (18:15)
[2016-07-13] MEDS ORDERED: DEXTROSE 50% 50 ML SYRINGE IV PRN (18:15)
[2016-07-13] MEDS ORDERED: GLUCOSE 4 GM CHEW TABLET PO PRN (18:15)
[2016-07-13] MEDS ORDERED: ALBUTEROL 90 MCG/ACT 8GM HFA INHALER INH PRN (18:15)
[2016-07-13] MEDS ORDERED: tiZANidine 4 MG TAB PO PRN (18:15)
[2016-07-13] MEDS ORDERED: GLUCAGON FOR INJ 1 MG VIAL (J1610) SC PRN (18:15)
[2016-07-13] MEDS ORDERED: BUSP30TA PO (18:16)
--- NOTE | 2016-07-13 18:20 | ECGEPIP ---
Stationary ECG Study [facility] - ED Test Date: 2016-07-13 Pat Name: NAA SCHWAB Department: Room: - Gender: F Disease Education Specialist: RN : [id number] Requested By: Dena Orantes Order Number: [id number] Reading MD: Dena Orantes Measurements Intervals Grimes Rate: 84 P: 47 OK: 185 QRS: 44 QRSD: 85 T: 37 QT: 364 QTc: 433 Interpretive Statements SINUS RHYTHM NSTTW ABNORMALITY DELAYED R PROGRESSION INCREASED RATE 03/19/16 Electronically Signed On 07-13-2016 18:20:34 EDT by Dena Orantes
[2016-07-13 18:26] LABS: ANION GAP 5 MEQ/L (8-16); BLOOD UREA NITROGEN 9 MG/DL (7-18); CALCIUM LEVEL 8.9 MG/DL (8.5-10.1); CARBON DIOXIDE LEVEL 30 MEQ/L (21-32); CHLORIDE LEVEL 107 MEQ/L (98-107); GLOMERULAR FILTRATION RATE > 60.0 (>51); GLUCOSE, FASTING 76 MG/DL (70-105); POTASSIUM SERUM 3.4 MEQ/L (3.5-5.1); SODIUM LEVEL 142 MEQ/L (136-145)
[2016-07-13] MEDS: NS 1,000 ML IV SCH (18:30)
[2016-07-13] MEDS ORDERED: PROP1TAB29 PO (18:37)
[2016-07-13] MEDS ORDERED: OXYC1TAB15 PO (18:39)
[2016-07-13] MEDS ORDERED: OMEP40CA2 PO (18:42)
[2016-07-13] MEDS ORDERED: TOUJ1.2I SC (18:42)
[2016-07-13] MEDS ORDERED: SENN8.6T8 PO (18:43)
[2016-07-13] MEDS ORDERED: LIDO1OIN2 TOP (18:44)
[2016-07-13] MEDS ORDERED: CLON0.5T PO (18:44)
[2016-07-13] MEDS ORDERED: MIRA33504 PO (18:45)
[2016-07-13] MEDS ORDERED: AMMO12CR4 TOP (18:48)
[2016-07-13] MEDS ORDERED: PERC5TAB6 PO (18:49)
[2016-07-13] MEDS ORDERED: ONDA8TAB8 PO (19:12)
[2016-07-13] MEDS: HumaLOG INSULIN (NovoLOG) PER UNIT SC SCH ×2 (20:45→21:00)
[2016-07-13] MEDS ORDERED: ZONISAMIDE 100 MG CAP (ZONEGRAN) PO SCH (21:00)
[2016-07-13] MEDS: DOCUSATE SODIUM 100 MG CAP PO SCH (21:00)
[2016-07-13] MEDS: busPIRone 10 MG TAB PO SCH (21:29)
[2016-07-13] MEDS: AMITRIPTYLINE 25 MG TAB PO SCH (21:30)
[2016-07-13] MEDS: PROPRANOLOL 20 MG TAB PO SCH (21:30)
[2016-07-13] MEDS: METOCLOPRAMIDE 10 MG TAB PO SCH (21:30)
[2016-07-13] MEDS: OMEPRAZOLE 20 MG CAP PO SCH (21:30)
[2016-07-13] MEDS: clonazePAM 0.5 MG TAB PO PRN (21:31)
[2016-07-13] MEDS: GABAPENTIN 300 MG CAP PO SCH (21:31)
[2016-07-13] MEDS: ACETAMINOPHEN 500 MG TAB PO PRN (22:00)
[2016-07-14] VITALS (8 sets, daily range): BP systolic 104–137; BP diastolic 57–82
[2016-07-14] MEDS: NS 1,000 ML IV SCH ×2 (06:12→17:52)
[2016-07-14 06:40] LABS: MEAN CORPUSCULAR HEMOGLOBIN 31.8 pg (27.0-33.0); MEAN CORPUSCULAR HGB CONC 32.1 g/dl (32.0-36.5); MEAN CORPUSCULAR VOLUME 98.8 fl (80.0-96.0); RED CELL DISTRIBUTION WIDTH 12.9 % (11.5-14.5); WHITE BLOOD COUNT 6.1 K/mm3 (4.0-10.0)
[2016-07-14 06:52] LABS: ALBUMIN 2.8 GM/DL (3.2-5.2); ALBUMIN/GLOBULIN RATIO 0.85 (1.00-1.93); ALKALINE PHOSPHATASE 83 U/L (45-117); ALT/SGPT 49 U/L (12-78); ANION GAP 5 MEQ/L (8-16); AST/SGOT 26 U/L (15-37); BILIRUBIN,TOTAL 0.2 MG/DL (0.2-1.0); BLOOD UREA NITROGEN 11 MG/DL (7-18); CALCIUM LEVEL 8.2 MG/DL (8.5-10.1); CARBON DIOXIDE LEVEL 26 MEQ/L (21-32); CHLORIDE LEVEL 109 MEQ/L (98-107); CREATININE FOR GFR 0.89 MG/DL (0.55-1.02); GLOMERULAR FILTRATION RATE > 60.0 (>51); GLUCOSE, FASTING 316 MG/DL (70-105); SODIUM LEVEL 140 MEQ/L (136-145); TOTAL PROTEIN 6.1 GM/DL (6.4-8.2)
[2016-07-14 06:58] LABS: POTASSIUM SERUM 4.5 MEQ/L (3.5-5.1)
[2016-07-14] MEDS: METOCLOPRAMIDE 10 MG TAB PO SCH ×4 (07:30→21:39)
[2016-07-14] MEDS: HumaLOG INSULIN (NovoLOG) PER UNIT SC SCH ×4 (07:30→21:39)
[2016-07-14] MEDS: DOCUSATE SODIUM 100 MG CAP PO SCH ×2 (09:00→21:39)
[2016-07-14] MEDS ORDERED: INDAPAMIDE 1.25MG TABLET PO SCH (09:00)
--- NOTE | 2016-07-14 09:17 | REP ---
LUMBAR SPINE, FIVE VIEWS: HISTORY: Back pain. COMPARISON: 06/07/2013 There is no acute fracture or subluxation. The intervertebral discs are normal in height. The facet joints are normal in appearance. IMPRESSION: There is no acute fracture or subluxation. Signed by Grant Grajeda MD 07/14/2016 09:22 A
[2016-07-14] MEDS: PARoxetine 20 MG TAB PO SCH ×2 (10:00)
[2016-07-14] MEDS: ENOXAPARIN 40 MG/0.4 ML SYRINGE (J1650) SC SCH (10:00)
[2016-07-14] MEDS: OMEPRAZOLE 20 MG CAP PO SCH ×2 (10:01→21:38)
[2016-07-14] MEDS: PERCOCET 5MG/325MG TAB PO PRN (10:02)
[2016-07-14] MEDS: GABAPENTIN 300 MG CAP PO SCH ×3 (10:02→21:38)
[2016-07-14] MEDS: MULTIVITAMINS/MINERALS THERAP 1 TAB PO SCH (10:03)
[2016-07-14] MEDS: VITAMIN B COMPLEX/VIT C CAP PO SCH (10:03)
[2016-07-14] MEDS: MONTELUKAST 10 MG TAB PO SCH (10:03)
[2016-07-14] MEDS: VITAMIN D 1,000 INTERNATIONAL UNITS TABLET PO SCH (10:03)
[2016-07-14] MEDS: busPIRone 10 MG TAB PO SCH ×2 (10:04→21:38)
[2016-07-14] MEDS: FERROUS SULFATE 325MG TAB PO SCH (10:04)
[2016-07-14] MEDS: LORATADINE 10 MG TAB PO SCH (10:04)
[2016-07-14] MEDS: ASPIRIN 81 MG ENTERIC TAB PO SCH (10:05)
[2016-07-14] MEDS: clonazePAM 0.5 MG TAB PO PRN (10:13)
[2016-07-14] MEDS: LISINOPRIL 10 MG TAB PO SCH (10:14)
[2016-07-14] MEDS: PROPRANOLOL 20 MG TAB PO SCH ×3 (10:14→21:00)
--- NOTE | 2016-07-14 14:28 | IPNPDOC ---
Subjective Date Seen The patient was seen on 07/14/16. Subjective Chief Complaint/HPI The patient is a 50-year-old female admitted with a reason for visit of Hypoglycemia Associated W/Diabetes. Events since last encounter Alia has done relatively well over the last 24 hours. She has not had any unusual neurologic signs, nor has she had any abnormal waves noted on the telemetry. Her blood glucose levels have been running high (in the 300s) since we took her off her basal insulin. She reports she is still stressed about her sister, but she is trying to work through that. General: Denies: Normal Appetite (she still does not have a good appetite - this is a common stress response for her) Pulmonary: Denies: Cough Cardiovascular: Reports: Palpitations (associated with her anxiety), Denies: Chest Pain Genitourinary: Denies: Dysuria Psych: Reports: Anxiety, Depression, Denies: Thoughts of Self Harm Objective Physical Examination General Exam: Positive: Alert, No Acute Distress Eye Exam: Positive: Conjunctiva & lids normal, Negative: Sclera icteric ENT Exam: Positive: Mucous membr. moist/pink Neck Exam: Negative: Lymphadenopathy Chest Exam: Positive: Clear to auscultation, Normal air movement Heart Exam: Positive: Rate Normal, Normal S1, Normal S2, Negative: Murmurs Abdomen Exam: Positive: Normal bowel sounds, Soft, Negative: Tenderness Extremity Exam: Negative: Edema Psych Exam: Positive: Anxiety, Oriented x 3, Other (affect is restricted) Assessment /Plan Problems (1) Collapse Status: Resolved Problem Text: She's had no recurrence of her collapse. There is no abnormal neurologic her telemetry information of concern today. I feel she can move off a monitored floor and we can progress her care. (2) Hypoglycemia associated with diabetes (3) Diabetes mellitus type 1 Status: Chronic Problem Text: Her blood sugars are running high since he stopped her basal insulin. If she has no more evidence of hypoglycemia, I would like to consider restarting a basal insulin at about half the dose she was taking before tomorrow. She was taking 30 units of Toujeo so believe starting her on 15 would be reasonable. (4) Unspecified injury of head, subsequent encounter Problem Text: Although she reportedly hit her head when she fell yesterday, she has no evidence of sequela including concussion symptoms right now. I counseled her on what to look for were expect if this does begin to happen. We' ll need to continue to monitor. (5) Stress due to family tension Problem Text: I continue to believe that this is a significant part of what is going on with her. Hopefully she can find some resolution for herself to be able to move beyond the change in her relationship status with her sister. Plan/VTE VTE Prophylaxis Ordered?: Yes (SCDs, teds, Lovenox) VS, I&O, 24H, Fishbone Vital Signs/I&O Vital Signs Date Time Temp Pulse Resp B/P (MAP) Pulse Ox O2 Delivery O2 Flow Rate FiO2 07/14/16 12:00 Room Air 07/14/16 12:00 98.1 77 18 124/82 (96) 98 I&O- Last 24 Hours up to 6 AM 07/14/16 06:00 Output Total 1000 ml Balance -1000 ml Laboratory Data 24H LABS Laboratory Tests 2 07/13/16 15:55: Bedside Glucose (Misc Panel) 60L 07/13/16 16:33: Bedside Glucose (Misc Panel) 151H 07/13/16 16:34: White Blood Count 16.0H, Red Blood Count 4.06, Hemoglobin 13.0, Hematocrit 38.5 , Mean Corpuscular Volume 94.7, Mean Corpuscular Hemoglobin 32.0, Mean Corpuscular Hemoglobin Concent 33.8, Red Cell Distribution Width 12.9, Platelet Count 306, Neutrophils (%) (Auto) 74.1H, Lymphocytes (%) (Auto) 16.4L, Monocytes (%) (Auto) 3.7, Eosinophils (%) (Auto) 3.7H, Basophils (%) (Auto) 0.7 , Neutrophils # (Auto) 11.9H, Lymphocytes # (Auto) 2.9, Monocytes # (Auto) 0.6, Eosinophils # (Auto) 0.6H, Basophils # (Auto) 0.1, Large Unclassified Cells % 1.5, Large Unclassified Cells # 0.2 07/13/16 17:24: Anion Gap 5L, Glomerular Filtration Rate > 60.0, Blood Urea Nitrogen 9, Creatinine 0.80, Sodium Level 142, Potassium Level 3.4L, Chloride Level 107, Carbon Dioxide Level 30, Calcium Level 8.9 07/13/16 17:26: Bedside Glucose (Misc Panel) 77 07/13/16 21:49: Bedside Glucose (Misc Panel) 272H 07/13/16 23:32: Bedside Glucose (Misc Panel) 381H 07/14/16 05:46: Anion Gap 5L, Glomerular Filtration Rate > 60.0, Blood Urea Nitrogen 11, Creatinine 0.89, Sodium Level 140, Potassium Level 4.5#, Chloride Level 109H, Carbon Dioxide Level 26, Calcium Level 8.2L, Aspartate Amino Transf (AST/SGOT) 26, Alanine Aminotransferase (ALT/SGPT) 49, Alkaline Phosphatase 83, Total Bilirubin 0.2, Total Protein 6.1L, Albumin 2.8L, Albumin/Globulin Ratio 0.85L, Prealbumin 18.5L CBC/BMP Laboratory Tests 07/13/16 16:34 Red Blood Count 4.06, Mean Corpuscular Volume 94.7, Mean Corpuscular Hemoglobin 32.0, Mean Corpuscular Hemoglobin Concent 33.8, Red Cell Distribution Width 12.9 , Neutrophils (%) (Auto) 74.1 H, Lymphocytes (%) (Auto) 16.4 L, Monocytes (%) ( Auto) 3.7, Eosinophils (%) (Auto) 3.7 H, Basophils (%) (Auto) 0.7, Neutrophils # (Auto) 11.9 H, Lymphocytes # (Auto) 2.9, Monocytes # (Auto) 0.6, Eosinophils # (Auto) 0.6 H, Basophils # (Auto) 0.1 07/13/16 17:24 Calcium Level 8.9 07/14/16 05:46 Red Blood Count 4.12, Mean Corpuscular Volume 98.8 H, Mean Corpuscular Hemoglobin 31.8, Mean Corpuscular Hemoglobin Concent 32.1, Red Cell Distribution Width 12.9, Calcium Level 8.2 L, Aspartate Amino Transf (AST/SGOT) 26, Alanine Aminotransferase (ALT/SGPT) 49, Alkaline Phosphatase 83, Total Bilirubin 0.2, Total Protein 6.1 L, Albumin 2.8 L Kraig Izquierdo MD Jul 14, 2016 2:28 pm
--- NOTE | 2016-07-14 19:30 | IPNPDOC ---
Text Note Date of Service The patient was seen on 07/14/16. NOTE Interim Note: I was called to the floor because Mr. Sierra (who had recently moved from the PCU to [facility]) was not acting right. Her BGL are elevated (306) not hypoglycemic. When I evaluated her she was arousable and oriented x 3. Her CN are symmetric. Flexion and extension about the elbow is 5/5 bilaterally. Plantar flexion and dorsiflexion are 4/5 on the L and 5/5 on the right. I have some doubts that she gave her full effort on the latter exam. I asked her if she was feeling stressed because of the recent breakdown in her relationship between her and her sister. She stated that "[she] can't get it out of [her] mind." I suspect that what is happening is an anxiety/stress reaction rather than a TIA. None the less, I ordered q4h neuro checks and discussed my concerns with nursing. If she has a significant change in status they will let me know (I'm on all night). VS,Charlenee, I+O VS, Josebone, I+O Laboratory Tests 07/14/16 05:46 Red Blood Count 4.12, Mean Corpuscular Volume 98.8 H, Mean Corpuscular Hemoglobin 31.8, Mean Corpuscular Hemoglobin Concent 32.1, Red Cell Distribution Width 12.9, Calcium Level 8.2 L, Aspartate Amino Transf (AST/SGOT) 26, Alanine Aminotransferase (ALT/SGPT) 49, Alkaline Phosphatase 83, Total Bilirubin 0.2, Total Protein 6.1 L, Albumin 2.8 L Vital Signs Date Time Temp Pulse Resp B/P (MAP) Pulse Ox O2 Delivery O2 Flow Rate FiO2 07/14/16 16:27 70 105/67 07/14/16 16:00 Room Air 07/14/16 12:00 98.1 18 98 I&O- Last 24 Hours up to 6 AM 07/14/16 06:00 Output Total 1000 ml Balance -1000 ml Kraig Izquierdo MD Jul 14, 2016 19:30
[2016-07-14] MEDS: AMITRIPTYLINE 25 MG TAB PO SCH (21:39)
[2016-07-15] MEDS: NS 1,000 ML IV SCH ×2 (04:13→10:30)
[2016-07-15 06:00] VITALS: BP 135/70
[2016-07-15] MEDS: HumaLOG INSULIN (NovoLOG) PER UNIT SC SCH ×4 (07:30→21:00)
[2016-07-15] MEDS: busPIRone 10 MG TAB PO SCH ×2 (09:05→21:26)
[2016-07-15] MEDS: METOCLOPRAMIDE 10 MG TAB PO SCH ×4 (09:05→21:27)
[2016-07-15] MEDS: LORATADINE 10 MG TAB PO SCH (09:05)
[2016-07-15] MEDS: MONTELUKAST 10 MG TAB PO SCH (09:05)
[2016-07-15] MEDS: PARoxetine 20 MG TAB PO SCH (09:05)
[2016-07-15] MEDS: ASPIRIN 81 MG ENTERIC TAB PO SCH (09:05)
[2016-07-15] MEDS: VITAMIN B COMPLEX/VIT C CAP PO SCH (09:05)
[2016-07-15] MEDS: MULTIVITAMINS/MINERALS THERAP 1 TAB PO SCH (09:05)
[2016-07-15] MEDS: VITAMIN D 1,000 INTERNATIONAL UNITS TABLET PO SCH (09:06)
[2016-07-15] MEDS: FERROUS SULFATE 325MG TAB PO SCH (09:06)
[2016-07-15] MEDS: DOCUSATE SODIUM 100 MG CAP PO SCH ×2 (09:06→21:26)
[2016-07-15] MEDS: PROPRANOLOL 20 MG TAB PO SCH ×3 (09:06→21:27)
[2016-07-15] MEDS: GABAPENTIN 300 MG CAP PO SCH ×3 (09:06→21:27)
[2016-07-15] MEDS: OMEPRAZOLE 20 MG CAP PO SCH ×2 (09:06→21:27)
[2016-07-15] MEDS: LISINOPRIL 10 MG TAB PO SCH (09:06)
[2016-07-15] MEDS: ENOXAPARIN 40 MG/0.4 ML SYRINGE (J1650) SC SCH (09:07)
[2016-07-15] MEDS: clonazePAM 0.5 MG TAB PO PRN ×2 (09:12→21:25)
[2016-07-15] MEDS: ACETAMINOPHEN 500 MG TAB PO PRN (09:17)
[2016-07-15 10:50] VITALS: BP_SYST 102; BP_SYST 120; BP_SYST 126; BP_DIAS 70; BP_DIAS 76
--- NOTE | 2016-07-15 11:13 | IPNPDOC ---
Subjective Date Seen The patient was seen on 07/15/16. Subjective Chief Complaint/HPI The patient is a 50-year-old female admitted with a reason for visit of Hypoglycemia Associated W/Diabetes. Events since last encounter Pt states that she has been having some confusion which she states started during this current episode. She states she had difficulty figuring out how to peel a banana earlier. She is oriented to person and place, however initially stated the year was 1983 but then quickly corrected herself to 2017. Patient denies pain, CP, Abd pain, SOB. Constitutional: Denies: Chills, Fever Pulmonary: Denies: Dyspnea Cardiovascular: Denies: Chest Pain Gastrointestinal: Denies: Nausea, Vomiting, Abdominal Pain Objective Physical Examination General Exam: Positive: Alert, No Acute Distress Eye Exam: Positive: Conjunctiva & lids normal, Negative: Sclera icteric ENT Exam: Positive: Mucous membr. moist/pink Neck Exam: Negative: Lymphadenopathy Chest Exam: Positive: Clear to auscultation, Normal air movement Heart Exam: Positive: Rate Normal, Normal S1, Normal S2, Negative: Murmurs Abdomen Exam: Positive: Normal bowel sounds, Soft, Negative: Tenderness Extremity Exam: Negative: Edema Psych Exam: Positive: Anxiety, Oriented x 3 (She is oriented to person and place, however initially stated the year was 1983 but then quickly corrected herself to 2017. ), Other (affect is restricted) Assessment /Plan Problems (1) Collapse Status: Resolved Problem Text: 07/15 - No further collapse. 07/14 - She's had no recurrence of her collapse. There is no abnormal neurologic her telemetry information of concern today. I feel she can move off a monitored floor and we can progress her care. (2) Hypoglycemia associated with diabetes (3) Diabetes mellitus type 1 Status: Chronic Problem Text: 07/15 - Awaiting today's labs. Consider starting a lower dose of Basal Insulin as noted below by Dr Izquierdo. D/W attending. 07/14 - Her blood sugars are running high since he stopped her basal insulin. If she has no more evidence of hypoglycemia, I would like to consider restarting a basal insulin at about half the dose she was taking before tomorrow. She was taking 30 units of Toujeo so believe starting her on 15 would be reasonable. (4) Unspecified injury of head, subsequent encounter Problem Text: Although she reportedly hit her head when she fell, she has no evidence of sequela including concussion symptoms right now. I counseled her on what to look for were expect if this does begin to happen. We'll need to continue to monitor. (5) Stress due to family tension Problem Text: 07/14 - I continue to believe that this is a significant part of what is going on with her. Hopefully she can find some resolution for herself to be able to move beyond the change in her relationship status with her sister. Plan/VTE VTE Prophylaxis Ordered?: Yes (SCDs, teds, Lovenox) VS, I&O, 24H, Fishbone Vital Signs/I&O Vital Signs Date Time Temp Pulse Resp B/P (MAP) Pulse Ox O2 Delivery O2 Flow Rate FiO2 07/15/16 10:50 80 126/76 (93) 82 120/70 (87) 88 102/70 (81) 07/15/16 06:00 98.5 16 94 Room Air I&O- Last 24 Hours up to 6 AM 07/15/16 06:00 Intake Total 4930 ml Output Total 150 ml Balance 4780 ml Laboratory Data 24H LABS Laboratory Tests 2 07/14/16 17:17: Bedside Glucose (Misc Panel) 188H 07/14/16 18:31: Bedside Glucose (Misc Panel) 306H 07/14/16 19:53: Bedside Glucose (Misc Panel) 409H 07/15/16 07:13: Bedside Glucose (Misc Panel) 130H nNamdi Card RPA-Eladia Jul 15, 2016 11:13
[2016-07-15 11:36] VITALS: BP 122/67
[2016-07-15 12:24] LABS: BASO # 0.1 K/mm3 (0.0-0.2); BASO % 1.4 % (0.0-1.0); EOS # 0.4 K/mm3 (0.0-0.50); EOS % 5.2 % (0.0-3.0); LARGE UNSTAINED CELL # 0.2 K/mm3 (0.0-0.4); LYMPH # 1.5 K/mm3 (1.5-4.5); LYMPH % 19.9 % (24.0-44.0); MEAN CORPUSCULAR HEMOGLOBIN 31.5 pg (27.0-33.0); MEAN CORPUSCULAR VOLUME 101.7 fl (80.0-96.0); MONO # 0.3 K/mm3 (0.0-0.8); MONO % 4.1 % (0.0-5.0); NEUTROPHILS # 5.1 K/mm3 (1.8-7.7); NEUTROPHILS % 67.3 % (36.0-66.0); PLATELET COUNT, AUTOMATED 262 k/mm3 (150-450); RED CELL DISTRIBUTION WIDTH 12.8 % (11.5-14.5); WHITE BLOOD COUNT 7.6 K/mm3 (4.0-10.0)
[2016-07-15 12:55] LABS: ALBUMIN/GLOBULIN RATIO 1.07 (1.00-1.93); BILIRUBIN,TOTAL 0.3 MG/DL (0.2-1.0); CALCIUM LEVEL 8.1 MG/DL (8.5-10.1); CREATININE FOR GFR 1.05 MG/DL (0.55-1.02); GLOMERULAR FILTRATION RATE 58.6 (>51); TOTAL PROTEIN 5.8 GM/DL (6.4-8.2)
[2016-07-15 13:00] LABS: POTASSIUM SERUM 6.2 MEQ/L (3.5-5.1)
[2016-07-15] MEDS ORDERED: HumaLOG INSULIN (NovoLOG) PER UNIT SC ONE (13:15)
[2016-07-15 14:00] VITALS: BP 128/66
[2016-07-15] MEDS: AMITRIPTYLINE 25 MG TAB PO SCH (21:27)
[2016-07-15 22:00] VITALS: BP 124/63
[2016-07-16] MEDS: NS 1,000 ML IV SCH ×2 (00:26→08:12)
[2016-07-16 05:30] VITALS: BP_SYST 149; BP_SYST 154; BP_SYST 164; BP_DIAS 82; BP_DIAS 88; BP_DIAS 91
[2016-07-16 06:00] VITALS: BP 129/65
[2016-07-16 06:45] LABS: BASO # 0.1 K/mm3 (0.0-0.2); BASO % 1.4 % (0.0-1.0); EOS # 0.4 K/mm3 (0.0-0.50); EOS % 4.9 % (0.0-3.0); LARGE UNSTAINED CELL # 0.1 K/mm3 (0.0-0.4); LARGE UNSTAINED CELL % 1.8 % (0.0-4.0); LYMPH # 1.9 K/mm3 (1.5-4.5); LYMPH % 22.6 % (24.0-44.0); MEAN CORPUSCULAR HEMOGLOBIN 31.9 pg (27.0-33.0); MEAN CORPUSCULAR HGB CONC 31.7 g/dl (32.0-36.5); MEAN CORPUSCULAR VOLUME 100.8 fl (80.0-96.0); MONO # 0.3 K/mm3 (0.0-0.8); NEUTROPHILS # 5.2 K/mm3 (1.8-7.7); NEUTROPHILS % 65.3 % (36.0-66.0); PLATELET COUNT, AUTOMATED 241 k/mm3 (150-450); RED CELL DISTRIBUTION WIDTH 12.7 % (11.5-14.5); WHITE BLOOD COUNT 7.9 K/mm3 (4.0-10.0)
[2016-07-16 07:11] LABS: ALBUMIN 2.7 GM/DL (3.2-5.2); ALBUMIN/GLOBULIN RATIO 0.84 (1.00-1.93); ALKALINE PHOSPHATASE 83 U/L (45-117); ALT/SGPT 42 U/L (12-78); ANION GAP 5 MEQ/L (8-16); AST/SGOT 21 U/L (15-37); BILIRUBIN,TOTAL 0.3 MG/DL (0.2-1.0); BLOOD UREA NITROGEN 13 MG/DL (7-18); CALCIUM LEVEL 8.5 MG/DL (8.5-10.1); CARBON DIOXIDE LEVEL 27 MEQ/L (21-32); CHLORIDE LEVEL 105 MEQ/L (98-107); CREATININE FOR GFR 0.88 MG/DL (0.55-1.02); GLOMERULAR FILTRATION RATE > 60.0 (>51); SODIUM LEVEL 137 MEQ/L (136-145); TOTAL PROTEIN 5.9 GM/DL (6.4-8.2)
[2016-07-16 07:14] LABS: GLUCOSE, FASTING 471 MG/DL (70-105)
[2016-07-16 07:15] LABS: POTASSIUM SERUM 5.5 MEQ/L (3.5-5.1)
[2016-07-16] MEDS: HumaLOG INSULIN (NovoLOG) PER UNIT SC SCH ×4 (07:30→21:00)
[2016-07-16] MEDS ORDERED: HumaLOG INSULIN (NovoLOG) PER UNIT SC ONE ×2 (08:00→11:45)
[2016-07-16] MEDS: ENOXAPARIN 40 MG/0.4 ML SYRINGE (J1650) SC SCH (08:12)
[2016-07-16] MEDS: LISINOPRIL 10 MG TAB PO SCH (08:14)
[2016-07-16] MEDS: VITAMIN D 1,000 INTERNATIONAL UNITS TABLET PO SCH (08:14)
[2016-07-16] MEDS: VITAMIN B COMPLEX/VIT C CAP PO SCH (08:15)
[2016-07-16] MEDS: DOCUSATE SODIUM 100 MG CAP PO SCH ×2 (08:15→21:22)
[2016-07-16] MEDS: ASPIRIN 81 MG ENTERIC TAB PO SCH (08:15)
[2016-07-16] MEDS: LORATADINE 10 MG TAB PO SCH (08:15)
[2016-07-16] MEDS: FERROUS SULFATE 325MG TAB PO SCH (08:15)
[2016-07-16] MEDS: GABAPENTIN 300 MG CAP PO SCH ×3 (08:15→21:22)
[2016-07-16] MEDS: PARoxetine 20 MG TAB PO SCH (08:15)
[2016-07-16] MEDS: busPIRone 10 MG TAB PO SCH ×2 (08:15→21:22)
[2016-07-16] MEDS: OMEPRAZOLE 20 MG CAP PO SCH ×2 (08:16→21:22)
[2016-07-16] MEDS: MULTIVITAMINS/MINERALS THERAP 1 TAB PO SCH (08:16)
[2016-07-16] MEDS: PROPRANOLOL 20 MG TAB PO SCH ×3 (08:16→21:22)
[2016-07-16] MEDS: MONTELUKAST 10 MG TAB PO SCH (08:16)
[2016-07-16] MEDS: METOCLOPRAMIDE 10 MG TAB PO SCH ×4 (08:16→21:22)
--- NOTE | 2016-07-16 08:25 | IPNPDOC ---
Subjective Date Seen The patient was seen on 07/16/16. Subjective Chief Complaint/HPI The patient is a 50-year-old female admitted with a reason for visit of Hypoglycemia Associated W/Diabetes. Events since last encounter Hyperglycemic this am at 471. Given 10 units regular insulin. States anxiety improving. Constitutional: Denies: Chills, Fever, Night Sweats Eyes: Denies: Pain, Vision change Pulmonary: Denies: Dyspnea, Cough Cardiovascular: Denies: Chest Pain, Palpitations, Orthopnea, Paroxysmal Noc. Dyspnea, Lt Headedness Gastrointestinal: Denies: Nausea, Vomiting, Abdominal Pain, Diarrhea, Constipation Genitourinary: Denies: Dysuria, Frequency, Incontinence, Retention Psych: Reports: Mood Normal, Denies: Depression, Memory Issues Objective Physical Examination General Exam: Positive: Alert, No Acute Distress Eye Exam: Positive: Conjunctiva & lids normal, Negative: Sclera icteric ENT Exam: Positive: Mucous membr. moist/pink Neck Exam: Negative: Lymphadenopathy Chest Exam: Positive: Clear to auscultation, Normal air movement Heart Exam: Positive: Rate Normal, Normal S1, Normal S2, Negative: Murmurs Abdomen Exam: Positive: Normal bowel sounds, Soft, Negative: Tenderness Extremity Exam: Negative: Edema Psych Exam: Positive: Anxiety, Oriented x 3 (She is oriented to person and place, however initially stated the year was 1983 but then quickly corrected herself to 2016. ), Other (affect is restricted) Assessment /Plan Problems (1) Collapse Status: Resolved Problem Text: 07/16/2016: PT eval. 07/15 - No further collapse. 07/14 - She's had no recurrence of her collapse. There is no abnormal neurologic her telemetry information of concern today. I feel she can move off a monitored floor and we can progress her care. (2) Hypoglycemia associated with diabetes Response to Treatment: Improving (3) Diabetes mellitus type 1 Status: Chronic Problem Text: 07/16/2016: Start Levemir, long acting insulin today. On Toujeo 30 units sq daily at home 07/15 - Awaiting today's labs. Consider starting a lower dose of Basal Insulin as noted below by Dr Izquierdo. D/W attending. 07/14 - Her blood sugars are running high since he stopped her basal insulin. If she has no more evidence of hypoglycemia, I would like to consider restarting a basal insulin at about half the dose she was taking before tomorrow. She was taking 30 units of Toujeo so believe starting her on 15 would be reasonable. (4) Unspecified injury of head, subsequent encounter Problem Text: Although she reportedly hit her head when she fell, she has no evidence of sequela including concussion symptoms right now. I counseled her on what to look for were expect if this does begin to happen. We'll need to continue to monitor. (5) Stress due to family tension Problem Text: 07/14 - I continue to believe that this is a significant part of what is going on with her. Hopefully she can find some resolution for herself to be able to move beyond the change in her relationship status with her sister. Plan/VTE VTE Prophylaxis Ordered?: Yes (SCDs, teds, Lovenox) Plan IVF: Discontinue Diet: Continue Current Activity: Encourage Ambulation Therapy: PT Medications: Other Med: (Start Levemir, long acting insulin today. On Toujeo 30 units sq daily at home) Attending attestation: I saw and evaluated the patient, and agree with the plan of care as discussed and documented by Jocelin Ervin. However, given her history of severe hypoglycemia after eating, it is quite possible that she's having symptoms of late dumping syndrome. Patient has history of gastric bypass. Ordered dietary consult for patient education. Reji Jaeger MD VS, I&O, [facility]H, [facility] Vital Signs/I&O Vital Signs Date Time Temp Pulse Resp B/P (MAP) Pulse Ox O2 Delivery O2 Flow Rate FiO2 07/16/16 08:16 68 129/65 07/16/16 06:00 97.6 18 94 Room Air I&O- Last 24 Hours up to 6 AM 07/16/16 06:00 Intake Total 1940 ml Output Total 3000 ml Balance -1060 ml Laboratory Data 24H LABS Laboratory Tests 2 07/15/16 11:11: Bedside Glucose (Misc Panel) 389H 07/15/16 12:10: White Blood Count 7.6, Red Blood Count 3.89L, Hemoglobin 12.3, Hematocrit 39.6, Mean Corpuscular Volume 101.7H, Mean Corpuscular Hemoglobin 31.5, Mean Corpuscular Hemoglobin Concent 31.0L, Red Cell Distribution Width 12.8, Platelet Count 262, Neutrophils (%) (Auto) 67.3H, Lymphocytes (%) (Auto) 19.9L, Monocytes (%) (Auto) 4.1, Eosinophils (%) (Auto) 5.2H, Basophils (%) (Auto) 1.4H , Neutrophils # (Auto) 5.1, Lymphocytes # (Auto) 1.5, Monocytes # (Auto) 0.3, Eosinophils # (Auto) 0.4, Basophils # (Auto) 0.1, Large Unclassified Cells % 2.0 , Large Unclassified Cells # 0.2, Anion Gap 4L, Glomerular Filtration Rate 58.6 , Blood Urea Nitrogen 12, Creatinine 1.05H, Sodium Level 133L, Potassium Level 6.2*H, Chloride Level 103, Carbon Dioxide Level 26, Calcium Level 8.1L, Aspartate Amino Transf (AST/SGOT) 51H, Alanine Aminotransferase (ALT/SGPT) 55, Alkaline Phosphatase 88, Total Bilirubin 0.3, Total Protein 5.8L, Albumin 3.0L, Albumin/Globulin Ratio 1.07 07/15/16 13:22: Bedside Glucose Confirm (Misc) 426*H 07/15/16 16:52: Bedside Glucose (Misc Panel) 239H 07/15/16 20:30: Bedside Glucose (Misc Panel) 317H 07/16/16 06:15: White Blood Count 7.9, Red Blood Count 3.90L, Hemoglobin 12.4, Hematocrit 39.3, Mean Corpuscular Volume 100.8H, Mean Corpuscular Hemoglobin 31.9, Mean Corpuscular Hemoglobin Concent 31.7L, Red Cell Distribution Width 12.7, Platelet Count 241, Neutrophils (%) (Auto) 65.3, Lymphocytes (%) (Auto) 22.6L, Monocytes (%) (Auto) 4.0, Eosinophils (%) (Auto) 4.9H, Basophils (%) (Auto) 1.4H , Neutrophils # (Auto) 5.2, Lymphocytes # (Auto) 1.9, Monocytes # (Auto) 0.3, Eosinophils # (Auto) 0.4, Basophils # (Auto) 0.1, Large Unclassified Cells % 1.8 , Large Unclassified Cells # 0.1, Anion Gap 5L, Glomerular Filtration Rate > 60.0, Blood Urea Nitrogen 13, Creatinine 0.88, Sodium Level 137, Potassium Level 5.5H, Chloride Level 105, Carbon Dioxide Level 27, Calcium Level 8.5, Aspartate Amino Transf (AST/SGOT) 21, Alanine Aminotransferase (ALT/SGPT) 42, Alkaline Phosphatase 83, Total Bilirubin 0.3, Total Protein 5.9L, Albumin 2.7L, Albumin/Globulin Ratio 0.84L CBC/BMP Laboratory Tests 07/15/16 12:10 Red Blood Count 3.89 L, Mean Corpuscular Volume 101.7 H, Mean Corpuscular Hemoglobin 31.5, Mean Corpuscular Hemoglobin Concent 31.0 L, Red Cell Distribution Width 12.8, Neutrophils (%) (Auto) 67.3 H, Lymphocytes (%) (Auto) 19.9 L, Monocytes (%) (Auto) 4.1, Eosinophils (%) (Auto) 5.2 H, Basophils (%) ( Auto) 1.4 H, Neutrophils # (Auto) 5.1, Lymphocytes # (Auto) 1.5, Monocytes # ( Auto) 0.3, Eosinophils # (Auto) 0.4, Basophils # (Auto) 0.1, Calcium Level 8.1 L , Aspartate Amino Transf (AST/SGOT) 51 H, Alanine Aminotransferase (ALT/SGPT) 55 , Alkaline Phosphatase 88, Total Bilirubin 0.3, Total Protein 5.8 L, Albumin 3.0 L 07/15/16 13:21 07/16/16 06:15 Red Blood Count 3.90 L, Mean Corpuscular Volume 100.8 H, Mean Corpuscular Hemoglobin 31.9, Mean Corpuscular Hemoglobin Concent 31.7 L, Red Cell Distribution Width 12.7, Neutrophils (%) (Auto) 65.3, Lymphocytes (%) (Auto) 22.6 L, Monocytes (%) (Auto) 4.0, Eosinophils (%) (Auto) 4.9 H, Basophils (%) ( Auto) 1.4 H, Neutrophils # (Auto) 5.2, Lymphocytes # (Auto) 1.9, Monocytes # ( Auto) 0.3, Eosinophils # (Auto) 0.4, Basophils # (Auto) 0.1, Calcium Level 8.5, Aspartate Amino Transf (AST/SGOT) 21, Alanine Aminotransferase (ALT/SGPT) 42, Alkaline Phosphatase 83, Total Bilirubin 0.3, Total Protein 5.9 L, Albumin 2.7 L Nubia Ervin Jul 16, 2016 08:25 REJI JAEGER MD Jul 16, 2016 18:06
[2016-07-16 14:00] VITALS: BP 152/81
[2016-07-16] MEDS: AMITRIPTYLINE 25 MG TAB PO SCH (21:22)
[2016-07-16] MEDS: LEVEMIR (INSULIN DETEMIR) 1 UNITS/0.01ML SC SCH (21:24)
[2016-07-16 22:00] VITALS: BP 133/63
[2016-07-17 06:00] VITALS: BP 136/76
[2016-07-17 06:37] VITALS: BP_SYST 136; BP_SYST 141; BP_SYST 143; BP_DIAS 72; BP_DIAS 76; BP_DIAS 83
[2016-07-17 06:51] LABS: BASO # 0.1 K/mm3 (0.0-0.2); BASO % 1.4 % (0.0-1.0); EOS # 0.4 K/mm3 (0.0-0.50); EOS % 6.7 % (0.0-3.0); LARGE UNSTAINED CELL # 0.1 K/mm3 (0.0-0.4); LARGE UNSTAINED CELL % 2.2 % (0.0-4.0); LYMPH # 2.3 K/mm3 (1.5-4.5); LYMPH % 35.8 % (24.0-44.0); MEAN CORPUSCULAR HEMOGLOBIN 31.3 pg (27.0-33.0); MEAN CORPUSCULAR HGB CONC 32.7 g/dl (32.0-36.5); MONO # 0.3 K/mm3 (0.0-0.8); MONO % 4.8 % (0.0-5.0); NEUTROPHILS % 49.1 % (36.0-66.0); PLATELET COUNT, AUTOMATED 267 k/mm3 (150-450); WHITE BLOOD COUNT 6.1 K/mm3 (4.0-10.0)
[2016-07-17 06:57] LABS: MEAN CORPUSCULAR VOLUME 95.5 fl (80.0-96.0)
[2016-07-17 07:15] LABS: ALBUMIN 2.9 GM/DL (3.2-5.2); ALBUMIN/GLOBULIN RATIO 0.83 (1.00-1.93); ALKALINE PHOSPHATASE 83 U/L (45-117); ALT/SGPT 42 U/L (12-78); ANION GAP 4 MEQ/L (8-16); AST/SGOT 24 U/L (15-37); BILIRUBIN,TOTAL 0.2 MG/DL (0.2-1.0); BLOOD UREA NITROGEN 12 MG/DL (7-18); CALCIUM LEVEL 8.7 MG/DL (8.5-10.1); CARBON DIOXIDE LEVEL 32 MEQ/L (21-32); CHLORIDE LEVEL 105 MEQ/L (98-107); CREATININE FOR GFR 0.81 MG/DL (0.55-1.02); GLOMERULAR FILTRATION RATE > 60.0 (>51); GLUCOSE, FASTING 85 MG/DL (70-105); POTASSIUM SERUM 4.1 MEQ/L (3.5-5.1); SODIUM LEVEL 141 MEQ/L (136-145); TOTAL PROTEIN 6.4 GM/DL (6.4-8.2)
[2016-07-17] MEDS: HumaLOG INSULIN (NovoLOG) PER UNIT SC SCH ×4 (07:30→20:44)
[2016-07-17] MEDS: LISINOPRIL 10 MG TAB PO SCH (08:42)
[2016-07-17] MEDS: PROPRANOLOL 20 MG TAB PO SCH ×3 (08:42→21:00)
[2016-07-17] MEDS: VITAMIN B COMPLEX/VIT C CAP PO SCH (08:42)
[2016-07-17] MEDS: ASPIRIN 81 MG ENTERIC TAB PO SCH (08:42)
[2016-07-17] MEDS: ENOXAPARIN 40 MG/0.4 ML SYRINGE (J1650) SC SCH (08:42)
[2016-07-17] MEDS: busPIRone 10 MG TAB PO SCH ×2 (08:42→20:43)
[2016-07-17] MEDS: OMEPRAZOLE 20 MG CAP PO SCH ×2 (08:42→20:43)
[2016-07-17] MEDS: GABAPENTIN 300 MG CAP PO SCH ×3 (08:43→20:43)
[2016-07-17] MEDS: FERROUS SULFATE 325MG TAB PO SCH (08:43)
[2016-07-17] MEDS: LORATADINE 10 MG TAB PO SCH (08:43)
[2016-07-17] MEDS: DOCUSATE SODIUM 100 MG CAP PO SCH ×2 (08:43→20:43)
[2016-07-17] MEDS: MONTELUKAST 10 MG TAB PO SCH (08:43)
[2016-07-17] MEDS: PARoxetine 20 MG TAB PO SCH (08:43)
[2016-07-17] MEDS: VITAMIN D 1,000 INTERNATIONAL UNITS TABLET PO SCH (08:43)
[2016-07-17] MEDS: METOCLOPRAMIDE 10 MG TAB PO SCH ×4 (08:43→20:43)
[2016-07-17] MEDS: MULTIVITAMINS/MINERALS THERAP 1 TAB PO SCH (08:43)
--- NOTE | 2016-07-17 09:43 | IPNPDOC ---
Subjective Date Seen The patient was seen on 07/17/16. Subjective Chief Complaint/HPI The patient is a 50-year-old female admitted with a reason for visit of Hypoglycemia Associated W/Diabetes. Events since last encounter Pt feeling better today. She denies any confusion today. She denies CP, SOB, Abd pain. Constitutional: Denies: Chills, Fever Pulmonary: Denies: Dyspnea Cardiovascular: Denies: Chest Pain, Palpitations Gastrointestinal: Denies: Nausea, Vomiting, Abdominal Pain Objective Physical Examination General Exam: Positive: Alert, No Acute Distress Eye Exam: Positive: Conjunctiva & lids normal, Negative: Sclera icteric ENT Exam: Positive: Mucous membr. moist/pink Neck Exam: Negative: Lymphadenopathy Chest Exam: Positive: Clear to auscultation, Normal air movement Heart Exam: Positive: Rate Normal, Normal S1, Normal S2, Negative: Murmurs Abdomen Exam: Positive: Normal bowel sounds, Soft, Negative: Tenderness Extremity Exam: Negative: Edema Psych Exam: Positive: Anxiety, Oriented x 3 Assessment /Plan Problems (1) Collapse Status: Resolved Problem Text: 07/17 - No further collapse. Working with PT. 07/16/2016: PT gabby. 07/15 - No further collapse. 07/14 - She's had no recurrence of her collapse. There is no abnormal neurologic her telemetry information of concern today. I feel she can move off a monitored floor and we can progress her care. (2) Hypoglycemia associated with diabetes Response to Treatment: Improving (3) Diabetes mellitus type 1 Status: Chronic Problem Text: 07/17 - Levemir 30 units daily was started last night. AM BS was 85 this AM. 07/16/2016: Start Levemir, long acting insulin today. On Toujeo 30 units sq daily at home 07/15 - Awaiting today's labs. Consider starting a lower dose of Basal Insulin as noted below by Dr Izquierdo. D/W attending. 07/14 - Her blood sugars are running high since he stopped her basal insulin. If she has no more evidence of hypoglycemia, I would like to consider restarting a basal insulin at about half the dose she was taking before tomorrow. She was taking 30 units of Toujeo so believe starting her on 15 would be reasonable. (4) Unspecified injury of head, subsequent encounter Problem Text: Although she reportedly hit her head when she fell, she has no evidence of sequela including concussion symptoms right now. I counseled her on what to look for were expect if this does begin to happen. We'll need to continue to monitor. (5) Stress due to family tension Problem Text: 07/14 - I continue to believe that this is a significant part of what is going on with her. Hopefully she can find some resolution for herself to be able to move beyond the change in her relationship status with her sister. Plan/VTE VTE Prophylaxis Ordered?: Yes (SCDs, teds, Lovenox) Plan IVF: Discontinue Diet: Continue Current Activity: Encourage Ambulation Therapy: PT Medications: Other Med: (Start Levemir, long acting insulin today. On Toujeo 30 units sq daily at home) VS, I&O, 24H, [facility]bone Vital Signs/I&O Vital Signs Date Time Temp Pulse Resp B/P (MAP) Pulse Ox O2 Delivery O2 Flow Rate FiO2 07/17/16 08:42 75 141/83 07/17/16 06:00 97.5 16 94 Room Air I&O- Last 24 Hours up to 6 AM 07/17/16 06:00 Intake Total 2100 ml Output Total 2400 ml Balance -300 ml Laboratory Data 24H LABS Laboratory Tests 2 07/16/16 09:40: Bedside Glucose (Misc Panel) 485H 07/16/16 10:05: Bedside Glucose (Misc Panel) 441H 07/16/16 11:11: Bedside Glucose (Misc Panel) 425H 07/16/16 13:07: Bedside Glucose (Misc Panel) 241H 07/16/16 16:31: Bedside Glucose (Misc Panel) 178H 07/16/16 20:34: Bedside Glucose (Misc Panel) 554*H 07/16/16 20:37: Bedside Glucose (Misc Panel) 535*H 07/17/16 00:08: Bedside Glucose (Misc Panel) 457H 07/17/16 00:57: Bedside Glucose Confirm (Misc) 398H 07/17/16 06:38: White Blood Count 6.1, Red Blood Count 3.96L, Hemoglobin 12.4, Hematocrit 37.8, Mean Corpuscular Volume 95.5#, Mean Corpuscular Hemoglobin 31.3, Mean Corpuscular Hemoglobin Concent 32.7, Red Cell Distribution Width 13.0, Platelet Count 267, Neutrophils (%) (Auto) 49.1, Lymphocytes (%) (Auto) 35.8, Monocytes ( %) (Auto) 4.8, Eosinophils (%) (Auto) 6.7H, Basophils (%) (Auto) 1.4H, Neutrophils # (Auto) 3.0, Lymphocytes # (Auto) 2.3, Monocytes # (Auto) 0.3, Eosinophils # (Auto) 0.4, Basophils # (Auto) 0.1, Large Unclassified Cells % 2.2 , Large Unclassified Cells # 0.1, Anion Gap 4L, Glomerular Filtration Rate > 60.0, Blood Urea Nitrogen 12, Creatinine 0.81, Sodium Level 141, Potassium Level 4.1#, Chloride Level 105, Carbon Dioxide Level 32, Calcium Level 8.7, Aspartate Amino Transf (AST/SGOT) 24, Alanine Aminotransferase (ALT/SGPT) 42, Alkaline Phosphatase 83, Total Bilirubin 0.2, Total Protein 6.4, Albumin 2.9L, Albumin/Globulin Ratio 0.83L CBC/BMP Laboratory Tests 07/17/16 06:38 Red Blood Count 3.96 L, Mean Corpuscular Volume 95.5 #, Mean Corpuscular Hemoglobin 31.3, Mean Corpuscular Hemoglobin Concent 32.7, Red Cell Distribution Width 13.0, Neutrophils (%) (Auto) 49.1, Lymphocytes (%) (Auto) 35.8, Monocytes (%) (Auto) 4.8, Eosinophils (%) (Auto) 6.7 H, Basophils (%) ( Auto) 1.4 H, Neutrophils # (Auto) 3.0, Lymphocytes # (Auto) 2.3, Monocytes # ( Auto) 0.3, Eosinophils # (Auto) 0.4, Basophils # (Auto) 0.1, Calcium Level 8.7, Aspartate Amino Transf (AST/SGOT) 24, Alanine Aminotransferase (ALT/SGPT) 42, Alkaline Phosphatase 83, Total Bilirubin 0.2, Total Protein 6.4, Albumin 2.9 L Nnamdi Card RPA-C Jul 17, 2016 09:42
[2016-07-17] MEDS: PERCOCET 5MG/325MG TAB PO PRN (09:53)
[2016-07-17 14:00] VITALS: BP 130/71
[2016-07-17] MEDS: clonazePAM 0.5 MG TAB PO PRN (15:37)
[2016-07-17] MEDS: LEVALBUTEROL 1.25 MG/0.5 ML CONCENTRATE NEB INH PRN (19:06)
[2016-07-17] MEDS: AMITRIPTYLINE 25 MG TAB PO SCH (20:41)
[2016-07-17] MEDS: LEVEMIR (INSULIN DETEMIR) 1 UNITS/0.01ML SC SCH (20:44)
[2016-07-17 22:00] VITALS: BP 100/62
[2016-07-18 06:00] VITALS: BP 123/89
[2016-07-18 06:04] VITALS: BP 123/89
[2016-07-18 06:05] VITALS: BP_SYST 128; BP_SYST 135; BP_DIAS 71; BP_DIAS 94
[2016-07-18 06:42] LABS: BASO % 0.5 % (0.0-1.0); EOS # 0.1 K/mm3 (0.0-0.50); EOS % 0.9 % (0.0-3.0); LARGE UNSTAINED CELL # 0.1 K/mm3 (0.0-0.4); LARGE UNSTAINED CELL % 0.7 % (0.0-4.0); LYMPH # 0.8 K/mm3 (1.5-4.5); LYMPH % 7.1 % (24.0-44.0); MEAN CORPUSCULAR HEMOGLOBIN 31.7 pg (27.0-33.0); MEAN CORPUSCULAR HGB CONC 32.2 g/dl (32.0-36.5); MEAN CORPUSCULAR VOLUME 98.4 fl (80.0-96.0); MONO # 0.4 K/mm3 (0.0-0.8); MONO % 3.8 % (0.0-5.0); NEUTROPHILS # 8.7 K/mm3 (1.8-7.7); NEUTROPHILS % 87.1 % (36.0-66.0); PLATELET COUNT, AUTOMATED 260 k/mm3 (150-450); RED CELL DISTRIBUTION WIDTH 12.8 % (11.5-14.5)
[2016-07-18 07:07] LABS: ALT/SGPT 210 U/L (12-78); ANION GAP 6 MEQ/L (8-16); AST/SGOT 577 U/L (15-37); BLOOD UREA NITROGEN 14 MG/DL (7-18); CARBON DIOXIDE LEVEL 28 MEQ/L (21-32); CHLORIDE LEVEL 104 MEQ/L (98-107); CREATININE FOR GFR 0.96 MG/DL (0.55-1.02); GLOMERULAR FILTRATION RATE > 60.0 (>51); POTASSIUM SERUM 4.1 MEQ/L (3.5-5.1); SODIUM LEVEL 138 MEQ/L (136-145)
[2016-07-18 07:08] LABS: ALBUMIN 2.9 GM/DL (3.2-5.2); ALBUMIN/GLOBULIN RATIO 0.85 (1.00-1.93); ALKALINE PHOSPHATASE 96 U/L (45-117); BILIRUBIN,TOTAL 0.3 MG/DL (0.2-1.0); TOTAL PROTEIN 6.3 GM/DL (6.4-8.2)
[2016-07-18 07:13] LABS: GLUCOSE, FASTING 422 MG/DL (70-105)
[2016-07-18] MEDS: LEVALBUTEROL 1.25 MG/0.5 ML CONCENTRATE NEB INH PRN ×2 (08:10→19:54)
[2016-07-18] MEDS: LORATADINE 10 MG TAB PO SCH (08:45)
[2016-07-18] MEDS: PROPRANOLOL 20 MG TAB PO SCH ×3 (08:45→21:00)
[2016-07-18] MEDS: ENOXAPARIN 40 MG/0.4 ML SYRINGE (J1650) SC SCH (08:45)
[2016-07-18] MEDS: LISINOPRIL 10 MG TAB PO SCH (08:46)
[2016-07-18] MEDS: VITAMIN D 1,000 INTERNATIONAL UNITS TABLET PO SCH (08:46)
[2016-07-18] MEDS: GABAPENTIN 300 MG CAP PO SCH ×3 (08:46→22:12)
[2016-07-18] MEDS: busPIRone 10 MG TAB PO SCH ×2 (08:46→22:12)
[2016-07-18] MEDS: METOCLOPRAMIDE 10 MG TAB PO SCH ×4 (08:46→22:12)
[2016-07-18] MEDS: MULTIVITAMINS/MINERALS THERAP 1 TAB PO SCH (08:46)
[2016-07-18] MEDS: FERROUS SULFATE 325MG TAB PO SCH (08:46)
[2016-07-18] MEDS: MONTELUKAST 10 MG TAB PO SCH (08:46)
[2016-07-18] MEDS: DOCUSATE SODIUM 100 MG CAP PO SCH ×2 (08:46→22:12)
[2016-07-18] MEDS: ASPIRIN 81 MG ENTERIC TAB PO SCH (08:46)
[2016-07-18] MEDS: PARoxetine 20 MG TAB PO SCH (08:46)
[2016-07-18] MEDS: OMEPRAZOLE 20 MG CAP PO SCH ×2 (08:46→22:11)
[2016-07-18] MEDS: HumaLOG INSULIN (NovoLOG) PER UNIT SC SCH ×4 (08:47→22:13)
[2016-07-18] MEDS: VITAMIN B COMPLEX/VIT C CAP PO SCH (08:47)
[2016-07-18] MEDS: clonazePAM 0.5 MG TAB PO PRN (08:49)
[2016-07-18] MEDS: ACETAMINOPHEN 500 MG TAB PO PRN (10:51)
--- NOTE | 2016-07-18 10:57 | IPNPDOC ---
Subjective Date Seen The patient was seen on 07/18/16. Subjective Chief Complaint/HPI The patient is a 50-year-old female admitted with a reason for visit of Hypoglycemia Associated W/Diabetes. Events since last encounter Pt states she feels tired. Denies CP, SOB, Abd pain. Constitutional: Denies: Chills, Fever Pulmonary: Denies: Dyspnea Cardiovascular: Denies: Chest Pain Gastrointestinal: Denies: Nausea, Vomiting, Abdominal Pain Objective Physical Examination General Exam: Positive: Alert, No Acute Distress Eye Exam: Positive: Conjunctiva & lids normal, Negative: Sclera icteric ENT Exam: Positive: Mucous membr. moist/pink Neck Exam: Negative: Lymphadenopathy Chest Exam: Positive: Clear to auscultation, Normal air movement Heart Exam: Positive: Rate Normal, Normal S1, Normal S2, Negative: Murmurs Abdomen Exam: Positive: Normal bowel sounds, Soft, Negative: Tenderness Extremity Exam: Negative: Edema Psych Exam: Positive: Anxiety, Oriented x 3 Assessment /Plan Problems (1) Diabetes mellitus type 1 Status: Chronic Problem Text: 07/18 - Pt was recently restarted on Basal Insulin with Levemir at her usual home dose of 30 units. She had BS during the night in the 30s and RAT was called and pt required glucagon. I discussed case with Pt's PCP, Dr Izquierdo, as he has been trying to adjust and optimize her insulin. Plan is to reduce the basal to Levemir 15 units. Change the accucheck fingerstick blood sugar checks to 2 hrs post prandial and q 4 hrs during sleep. 07/17 - Levemir 30 units daily was started last night. AM BS was 85 this AM. 07/16/2016: Start Levemir, long acting insulin today. On Toujeo 30 units sq daily at home 07/15 - Awaiting today's labs. Consider starting a lower dose of Basal Insulin as noted below by Dr Izquierdo. D/W attending. 07/14 - Her blood sugars are running high since he stopped her basal insulin. If she has no more evidence of hypoglycemia, I would like to consider restarting a basal insulin at about half the dose she was taking before tomorrow. She was taking 30 units of Toujeo so believe starting her on 15 would be reasonable. (2) Hypoglycemia associated with diabetes Problem Text: See above. (3) Collapse Status: Resolved Problem Text: 07/18 - No further collapse. Working with PT. 07/17 - No further collapse. Working with PT. 07/16/2016: PT gabby. 07/15 - No further collapse. 07/14 - She's had no recurrence of her collapse. There is no abnormal neurologic her telemetry information of concern today. I feel she can move off a monitored floor and we can progress her care. (4) Unspecified injury of head, subsequent encounter Problem Text: Although she reportedly hit her head when she fell, she has no evidence of sequela including concussion symptoms right now. I counseled her on what to look for were expect if this does begin to happen. We'll need to continue to monitor. (5) Stress due to family tension Problem Text: 07/14 - I continue to believe that this is a significant part of what is going on with her. Hopefully she can find some resolution for herself to be able to move beyond the change in her relationship status with her sister. Plan/VTE VTE Prophylaxis Ordered?: Yes (SCDs, teds, Lovenox) Plan IVF: Discontinue Diet: Continue Current Activity: Encourage Ambulation Therapy: PT Medications: Other Med: (Start Levemir, long acting insulin today. On Toujeo 30 units sq daily at home) VS, I&O, 24H, Fishbone Vital Signs/I&O Vital Signs Date Time Temp Pulse Resp B/P (MAP) Pulse Ox O2 Delivery O2 Flow Rate FiO2 07/18/16 08:46 128/94 07/18/16 08:45 94 07/18/16 06:00 96.5 18 94 Room Air I&O- Last 24 Hours up to 6 AM 07/18/16 06:00 Intake Total 1680 ml Output Total 3600 ml Balance -1920 ml Laboratory Data 24H LABS Laboratory Tests 2 07/17/16 11:34: Bedside Glucose (Misc Panel) 351H 07/17/16 16:37: Bedside Glucose (Misc Panel) 251H 07/17/16 19:53: Bedside Glucose (Misc Panel) 260H 07/18/16 04:42: Bedside Glucose (Misc Panel) 38*L 07/18/16 04:55: Bedside Glucose (Misc Panel) 36*L 07/18/16 05:05: Bedside Glucose (Misc Panel) 71 07/18/16 05:25: Bedside Glucose (Misc Panel) 183H 07/18/16 06:26: White Blood Count 10.0, Red Blood Count 4.02, Hemoglobin 12.8, Hematocrit 39.6, Mean Corpuscular Volume 98.4H, Mean Corpuscular Hemoglobin 31.7, Mean Corpuscular Hemoglobin Concent 32.2, Red Cell Distribution Width 12.8, Platelet Count 260, Neutrophils (%) (Auto) 87.1H, Lymphocytes (%) (Auto) 7.1L, Monocytes (%) (Auto) 3.8, Eosinophils (%) (Auto) 0.9, Basophils (%) (Auto) 0.5, Neutrophils # (Auto) 8.7H, Lymphocytes # (Auto) 0.8L, Monocytes # (Auto) 0.4, Eosinophils # (Auto) 0.1, Basophils # (Auto) 0.0, Large Unclassified Cells % 0.7 , Large Unclassified Cells # 0.1, Anion Gap 6L, Glomerular Filtration Rate > 60.0, Blood Urea Nitrogen 14, Creatinine 0.96, Sodium Level 138, Potassium Level 4.1, Chloride Level 104, Carbon Dioxide Level 28, Calcium Level 8.0L, Aspartate Amino Transf (AST/SGOT) 577H, Alanine Aminotransferase (ALT/SGPT) 210H , Alkaline Phosphatase 96, Total Bilirubin 0.3, Total Protein 6.3L, Albumin 2.9L , Albumin/Globulin Ratio 0.85L CBC/BMP Laboratory Tests 07/18/16 06:26 Red Blood Count 4.02, Mean Corpuscular Volume 98.4 H, Mean Corpuscular Hemoglobin 31.7, Mean Corpuscular Hemoglobin Concent 32.2, Red Cell Distribution Width 12.8, Neutrophils (%) (Auto) 87.1 H, Lymphocytes (%) (Auto) 7.1 L, Monocytes (%) (Auto) 3.8, Eosinophils (%) (Auto) 0.9, Basophils (%) (Auto ) 0.5, Neutrophils # (Auto) 8.7 H, Lymphocytes # (Auto) 0.8 L, Monocytes # (Auto ) 0.4, Eosinophils # (Auto) 0.1, Basophils # (Auto) 0.0, Calcium Level 8.0 L, Aspartate Amino Transf (AST/SGOT) 577 H, Alanine Aminotransferase (ALT/SGPT) 210 H, Alkaline Phosphatase 96, Total Bilirubin 0.3, Total Protein 6.3 L, Albumin 2.9 L Nnamdi Card Jul 18, 2016 10:57
[2016-07-18 11:31] VITALS: BP_SYST 140; BP_SYST 141; BP_SYST 143; BP_DIAS 77; BP_DIAS 78; BP_DIAS 80
[2016-07-18 14:00] VITALS: BP 120/88
[2016-07-18] MEDS: PERCOCET 5MG/325MG TAB PO PRN (15:44)
[2016-07-18] MEDS ORDERED: LEVEMIR (INSULIN DETEMIR) 1 UNITS/0.01ML SC SCH (21:00)
[2016-07-18 22:00] VITALS: BP 119/60
[2016-07-18] MEDS: AMITRIPTYLINE 25 MG TAB PO SCH (22:11)
[2016-07-19 06:00] VITALS: BP_SYST 148; BP_SYST 152; BP_SYST 154; BP_DIAS 70; BP_DIAS 77
[2016-07-19 06:48] LABS: BASO # 0.1 K/mm3 (0.0-0.2); EOS # 0.3 K/mm3 (0.0-0.50); EOS % 4.5 % (0.0-3.0); LARGE UNSTAINED CELL # 0.1 K/mm3 (0.0-0.4); LARGE UNSTAINED CELL % 1.8 % (0.0-4.0); LYMPH # 1.4 K/mm3 (1.5-4.5); LYMPH % 18.1 % (24.0-44.0); MEAN CORPUSCULAR HGB CONC 32.8 g/dl (32.0-36.5); MEAN CORPUSCULAR VOLUME 97.4 fl (80.0-96.0); MONO # 0.3 K/mm3 (0.0-0.8); MONO % 4.5 % (0.0-5.0); NEUTROPHILS % 70.1 % (36.0-66.0); PLATELET COUNT, AUTOMATED 253 k/mm3 (150-450); RED CELL DISTRIBUTION WIDTH 13.1 % (11.5-14.5); WHITE BLOOD COUNT 7.1 K/mm3 (4.0-10.0)
[2016-07-19 06:58] LABS: ALBUMIN 2.9 GM/DL (3.2-5.2); ALBUMIN/GLOBULIN RATIO 0.83 (1.00-1.93); ALKALINE PHOSPHATASE 94 U/L (45-117); ALT/SGPT 175 U/L (12-78); ANION GAP 4 MEQ/L (8-16); AST/SGOT 108 U/L (15-37); BILIRUBIN,TOTAL 0.3 MG/DL (0.2-1.0); BLOOD UREA NITROGEN 8 MG/DL (7-18); CALCIUM LEVEL 8.5 MG/DL (8.5-10.1); CARBON DIOXIDE LEVEL 32 MEQ/L (21-32); CHLORIDE LEVEL 104 MEQ/L (98-107); GLOMERULAR FILTRATION RATE > 60.0 (>51); GLUCOSE, FASTING 123 MG/DL (70-105); POTASSIUM SERUM 4.4 MEQ/L (3.5-5.1); SODIUM LEVEL 140 MEQ/L (136-145); TOTAL PROTEIN 6.4 GM/DL (6.4-8.2)
[2016-07-19] MEDS: DOCUSATE SODIUM 100 MG CAP PO SCH ×2 (08:15→20:34)
[2016-07-19] MEDS: PARoxetine 20 MG TAB PO SCH (08:15)
[2016-07-19] MEDS: ENOXAPARIN 40 MG/0.4 ML SYRINGE (J1650) SC SCH (08:15)
[2016-07-19] MEDS: GABAPENTIN 300 MG CAP PO SCH ×3 (08:15→20:33)
[2016-07-19] MEDS: FERROUS SULFATE 325MG TAB PO SCH (08:15)
[2016-07-19] MEDS: VITAMIN B COMPLEX/VIT C CAP PO SCH (08:15)
[2016-07-19] MEDS: PROPRANOLOL 20 MG TAB PO SCH ×3 (08:15→21:53)
[2016-07-19] MEDS: OMEPRAZOLE 20 MG CAP PO SCH ×2 (08:15→20:34)
[2016-07-19] MEDS: HumaLOG INSULIN (NovoLOG) PER UNIT SC SCH ×4 (08:16→20:35)
[2016-07-19] MEDS: MONTELUKAST 10 MG TAB PO SCH (08:16)
[2016-07-19] MEDS: ASPIRIN 81 MG ENTERIC TAB PO SCH (08:16)
[2016-07-19] MEDS: VITAMIN D 1,000 INTERNATIONAL UNITS TABLET PO SCH (08:16)
[2016-07-19] MEDS: LORATADINE 10 MG TAB PO SCH (08:16)
[2016-07-19] MEDS: METOCLOPRAMIDE 10 MG TAB PO SCH ×4 (08:16→20:34)
[2016-07-19] MEDS: busPIRone 10 MG TAB PO SCH ×2 (08:16→20:34)
[2016-07-19] MEDS: MULTIVITAMINS/MINERALS THERAP 1 TAB PO SCH (08:16)
[2016-07-19] MEDS: LISINOPRIL 10 MG TAB PO SCH (08:16)
[2016-07-19] MEDS: LEVALBUTEROL 1.25 MG/0.5 ML CONCENTRATE NEB INH PRN (08:40)
--- NOTE | 2016-07-19 09:04 | IPNPDOC ---
Subjective Date Seen The patient was seen on 07/19/16. Subjective Chief Complaint/HPI The patient is a 50-year-old female admitted with a reason for visit of Hypoglycemia Associated W/Diabetes. Events since last encounter Continues with am hypoglycemia between 2582-9715. Levemir dosing cut in half last evening. Constitutional: Denies: Chills, Fever, Night Sweats Pulmonary: Denies: Dyspnea, Cough Cardiovascular: Denies: Chest Pain, Palpitations, Orthopnea, Paroxysmal Noc. Dyspnea, Lt Headedness Gastrointestinal: Denies: Nausea, Vomiting, Abdominal Pain, Diarrhea, Constipation Genitourinary: Denies: Dysuria, Frequency, Incontinence, Retention Neurological: Denies: Weakness, Numbness, Change in speech, Confusion Psych: Reports: Mood Normal, Denies: Depression, Memory Issues Objective Physical Examination General Exam: Positive: Alert, No Acute Distress Eye Exam: Positive: Conjunctiva & lids normal, Negative: Sclera icteric ENT Exam: Positive: Mucous membr. moist/pink Neck Exam: Negative: Lymphadenopathy Chest Exam: Positive: Clear to auscultation, Normal air movement Heart Exam: Positive: Rate Normal, Normal S1, Normal S2, Negative: Murmurs Abdomen Exam: Positive: Normal bowel sounds, Soft, Negative: Tenderness Extremity Exam: Negative: Edema Psych Exam: Positive: Anxiety, Oriented x 3 Assessment /Plan Problems (1) Diabetes mellitus type 1 Status: Chronic Problem Text: 07/19/2016: poor control with hypoglycemic events. Will have patient's family bring in toujeo. Had better control at home. nursing staff to provide Gluten Free snack with lean protein and complex carbs. re-eval in am. 07/18 - Pt was recently restarted on Basal Insulin with Levemir at her usual home dose of 30 units. She had BS during the night in the 30s and RAT was called and pt required glucagon. I discussed case with Pt's PCP, Dr Izquierdo, as he has been trying to adjust and optimize her insulin. Plan is to reduce the basal to Levemir 15 units. Change the accucheck fingerstick blood sugar checks to 2 hrs post prandial and q 4 hrs during sleep. 07/17 - Levemir 30 units daily was started last night. AM BS was 85 this AM. 07/16/2016: Start Levemir, long acting insulin today. On Toujeo 30 units sq daily at home 07/15 - Awaiting today's labs. Consider starting a lower dose of Basal Insulin as noted below by Dr Izquierdo. D/W attending. 07/14 - Her blood sugars are running high since he stopped her basal insulin. If she has no more evidence of hypoglycemia, I would like to consider restarting a basal insulin at about half the dose she was taking before tomorrow. She was taking 30 units of Toujeo so believe starting her on 15 would be reasonable. (2) Hypoglycemia associated with diabetes Problem Text: See above. (3) Collapse Status: Resolved Problem Text: 07/18 - No further collapse. Working with PT. 07/17 - No further collapse. Working with PT. 07/16/2016: PT gabby. 07/15 - No further collapse. 07/14 - She's had no recurrence of her collapse. There is no abnormal neurologic her telemetry information of concern today. I feel she can move off a monitored floor and we can progress her care. (4) Unspecified injury of head, subsequent encounter Problem Text: Although she reportedly hit her head when she fell, she has no evidence of sequela including concussion symptoms right now. I counseled her on what to look for were expect if this does begin to happen. We'll need to continue to monitor. (5) Stress due to family tension Problem Text: 07/14 - I continue to believe that this is a significant part of what is going on with her. Hopefully she can find some resolution for herself to be able to move beyond the change in her relationship status with her sister. Plan/VTE VTE Prophylaxis Ordered?: Yes (SCDs, teds, Lovenox) Plan IVF: Discontinue Diet: Continue Current Activity: Encourage Ambulation Therapy: PT Medications: Other Med: (Start Levemir, long acting insulin today. On Toujeo 30 units sq daily at home) VS, I&O, 24H, Fishbone Vital Signs/I&O Vital Signs Date Time Temp Pulse Resp B/P (MAP) Pulse Ox O2 Delivery O2 Flow Rate FiO2 07/19/16 08:16 152/70 07/19/16 08:15 72 07/18/16 22:00 97.3 18 94 Room Air I&O- Last 24 Hours up to 6 AM 07/19/16 06:00 Intake Total 1320 ml Output Total 2100 ml Balance -780 ml Laboratory Data 24H LABS Laboratory Tests 2 07/18/16 14:04: Bedside Glucose (Misc Panel) 365H 07/18/16 18:58: Bedside Glucose (Misc Panel) 226H 07/18/16 21:20: Bedside Glucose (Misc Panel) 263H 07/19/16 01:09: Bedside Glucose (Misc Panel) 102 07/19/16 05:11: Bedside Glucose (Misc Panel) 41L 07/19/16 06:05: Bedside Glucose (Misc Panel) 126H 07/19/16 06:28: White Blood Count 7.1, Red Blood Count 3.94L, Hemoglobin 12.6, Hematocrit 38.4, Mean Corpuscular Volume 97.4H, Mean Corpuscular Hemoglobin 32.0, Mean Corpuscular Hemoglobin Concent 32.8, Red Cell Distribution Width 13.1, Platelet Count 253, Neutrophils (%) (Auto) 70.1H, Lymphocytes (%) (Auto) 18.1L, Monocytes (%) (Auto) 4.5, Eosinophils (%) (Auto) 4.5H, Basophils (%) (Auto) 1.0 , Neutrophils # (Auto) 5.0, Lymphocytes # (Auto) 1.4L, Monocytes # (Auto) 0.3, Eosinophils # (Auto) 0.3, Basophils # (Auto) 0.1, Large Unclassified Cells % 1.8 , Large Unclassified Cells # 0.1, Anion Gap 4L, Glomerular Filtration Rate > 60.0, Blood Urea Nitrogen 8, Creatinine 0.80, Sodium Level 140, Potassium Level 4.4, Chloride Level 104, Carbon Dioxide Level 32, Calcium Level 8.5, Aspartate Amino Transf (AST/SGOT) 108H, Alanine Aminotransferase (ALT/SGPT) 175H, Alkaline Phosphatase 94, Total Bilirubin 0.3, Total Protein 6.4, Albumin 2.9L, Albumin/Globulin Ratio 0.83L CBC/BMP Laboratory Tests 07/19/16 06:28 Red Blood Count 3.94 L, Mean Corpuscular Volume 97.4 H, Mean Corpuscular Hemoglobin 32.0, Mean Corpuscular Hemoglobin Concent 32.8, Red Cell Distribution Width 13.1, Neutrophils (%) (Auto) 70.1 H, Lymphocytes (%) (Auto) 18.1 L, Monocytes (%) (Auto) 4.5, Eosinophils (%) (Auto) 4.5 H, Basophils (%) ( Auto) 1.0, Neutrophils # (Auto) 5.0, Lymphocytes # (Auto) 1.4 L, Monocytes # ( Auto) 0.3, Eosinophils # (Auto) 0.3, Basophils # (Auto) 0.1, Calcium Level 8.5, Aspartate Amino Transf (AST/SGOT) 108 H, Alanine Aminotransferase (ALT/SGPT) 175 H, Alkaline Phosphatase 94, Total Bilirubin 0.3, Total Protein 6.4, Albumin 2.9 L Nubia Ervin [facility] Jul 19, 2016 09:04
[2016-07-19 14:00] VITALS: BP 132/71
[2016-07-19 20:00] VITALS: BP 133/73
[2016-07-19] MEDS: AMITRIPTYLINE 25 MG TAB PO SCH (20:34)
[2016-07-19] MEDS ORDERED: TOUJEO (PATIENT'S OWN MED) SC SCH (21:00)
[2016-07-19 22:00] VITALS: BP 133/73
[2016-07-20 06:00] VITALS: BP_SYST 133; BP_SYST 143; BP_SYST 150; BP_SYST 152; BP_DIAS 72; BP_DIAS 82; BP_DIAS 88
[2016-07-20] MEDS: DOCUSATE SODIUM 100 MG CAP PO SCH ×2 (08:12→21:00)
[2016-07-20] MEDS: GABAPENTIN 300 MG CAP PO SCH ×3 (08:13→21:12)
[2016-07-20] MEDS: PARoxetine 20 MG TAB PO SCH (08:13)
[2016-07-20] MEDS: VITAMIN D 1,000 INTERNATIONAL UNITS TABLET PO SCH (08:14)
[2016-07-20] MEDS: MONTELUKAST 10 MG TAB PO SCH (08:14)
[2016-07-20] MEDS: FERROUS SULFATE 325MG TAB PO SCH (08:14)
[2016-07-20] MEDS: METOCLOPRAMIDE 10 MG TAB PO SCH ×4 (08:14→21:11)
[2016-07-20] MEDS: OMEPRAZOLE 20 MG CAP PO SCH ×2 (08:14→21:12)
[2016-07-20] MEDS: busPIRone 10 MG TAB PO SCH ×2 (08:14→21:12)
[2016-07-20] MEDS: ASPIRIN 81 MG ENTERIC TAB PO SCH (08:14)
[2016-07-20] MEDS: MULTIVITAMINS/MINERALS THERAP 1 TAB PO SCH (08:14)
[2016-07-20] MEDS: LORATADINE 10 MG TAB PO SCH (08:14)
[2016-07-20] MEDS: VITAMIN B COMPLEX/VIT C CAP PO SCH (08:14)
[2016-07-20] MEDS: ENOXAPARIN 40 MG/0.4 ML SYRINGE (J1650) SC SCH (08:15)
[2016-07-20] MEDS: LISINOPRIL 10 MG TAB PO SCH (08:17)
[2016-07-20] MEDS: PROPRANOLOL 20 MG TAB PO SCH ×3 (08:17→21:00)
[2016-07-20] MEDS ORDERED: HumaLOG INSULIN (NovoLOG) PER UNIT SC ONE ×3 (10:30→21:45)
[2016-07-20] MEDS: HumaLOG INSULIN (NovoLOG) PER UNIT SC SCH ×3 (10:44→19:57)
[2016-07-20 14:00] VITALS: BP 134/79
[2016-07-20] MEDS: NYSTATIN 500,000 U/5 ML SUSP UDC SS SCH ×3 (14:31→21:12)
--- NOTE | 2016-07-20 16:39 | IPNPDOC ---
Subjective Date Seen The patient was seen on 07/20/16. Subjective Chief Complaint/HPI The patient is a 50-year-old female admitted with a reason for visit of Hypoglycemia Associated W/Diabetes. Events since last encounter Patient restarted her home Toujeo yesterday evening - her home dose was 30U QHS and she received 20U last night. This morning, her BS was in the 600s - she has been covered with Novolog for this. She denies any symptoms with this high blood sugar, including headache, abdominal pain, or confusion. Constitutional: Denies: Chills, Fever Eyes: Denies: Pain ENT: Denies: Head Aches Pulmonary: Denies: Dyspnea, Cough Cardiovascular: Denies: Chest Pain Gastrointestinal: Denies: Nausea, Vomiting, Abdominal Pain Genitourinary: Denies: Dysuria Neurological: Denies: Weakness, Confusion Objective Physical Examination General Exam: Positive: Alert, No Acute Distress Eye Exam: Positive: Conjunctiva & lids normal, Negative: Sclera icteric ENT Exam: Positive: Mucous membr. moist/pink Neck Exam: Negative: Lymphadenopathy Chest Exam: Positive: Clear to auscultation, Normal air movement Heart Exam: Positive: Rate Normal, Normal S1, Normal S2, Negative: Murmurs Abdomen Exam: Positive: Normal bowel sounds, Soft, Negative: Tenderness Extremity Exam: Negative: Edema Skin Exam: Positive: Nl turgor and temperature Neuro Exam: Positive: Normal Speech, Cranial Nerves 3-12 NL Psych Exam: Positive: Oriented x 3, Negative: Anxiety Assessment /Plan Problems (1) Diabetes mellitus type 1 Status: Chronic Problem Text: Patient's blood sugars have been very difficult to control, with episodes of hypoglycemia and hyperglycemia during this hospitalization. She was initially placed on levemir and this was titrated up, but this resulted in hypoglycemic episodes in the mornings. Due to this, we asked her family to bring in her home Toujeo. She was started on Toujeo 20U QHS on the evening of 07/19/16; subsequently her blood sugar was 618 two hours after breakfast on . Toujeo will be increased to 24U QHS on 07/20/16. - Continue fingersticks Q4H and 2 hours post-prandial - Continue to cover with novolog sliding scale (2) Hypoglycemia associated with diabetes Problem Text: See above. (3) Collapse Status: Resolved Problem Text: No further collapse. Working with PT. (4) Unspecified injury of head, subsequent encounter Problem Text: Although she reportedly hit her head when she fell, she has no evidence of sequela and no concussion symptoms. I counseled her on what to look for were expect if this does begin to happen. We'll need to continue to monitor. (5) Stress due to family tension Problem Text: This may be a significant part of what is going on with her. Hopefully she can find some resolution for herself to be able to move beyond the change in her relationship status with her sister. Plan/VTE VTE Prophylaxis Ordered?: Yes (SCDs, teds, Lovenox) Plan IVF: Discontinue Diet: Continue Current Activity: Encourage Ambulation Therapy: PT Medications: Other Med: (Start Levemir, long acting insulin today. On Toujeo 30 units sq daily at home) VS, I&O, 24H, Fishbone Vital Signs/I&O Vital Signs Date Time Temp Pulse Resp B/P (MAP) Pulse Ox O2 Delivery O2 Flow Rate FiO2 07/20/16 14:00 98.7 76 18 134/79 (97) 97 Room Air I&O- Last 24 Hours up to 6 AM 07/20/16 06:00 Intake Total 1560 ml Output Total 3450 ml Balance -1890 ml Laboratory Data 24H LABS Laboratory Tests 2 07/20/16 02:04: Bedside Glucose (Misc Panel) 414H 07/20/16 09:32: Bedside Glucose Confirm (Misc) 618*H 07/20/16 11:43: Bedside Glucose (Misc Panel) 474H 07/20/16 13:09: Bedside Glucose (Misc Panel) 294H 07/20/16 14:09: Bedside Glucose (Misc Panel) 139H 07/20/16 16:03: Bedside Glucose (Misc Panel) 217H REINIER LARSON MD Jul 20, 2016 16:39
[2016-07-20] MEDS ORDERED: TOUJEO (PATIENT'S OWN MED) SC SCH (21:00)
[2016-07-20] MEDS: AMITRIPTYLINE 25 MG TAB PO SCH (21:12)
[2016-07-20 22:00] VITALS: BP 119/58
[2016-07-21 06:00] VITALS: BP_SYST 110; BP_SYST 125; BP_SYST 126; BP_SYST 131; BP_DIAS 67; BP_DIAS 70; BP_DIAS 78
[2016-07-21 08:17] LABS: ANION GAP 8 MEQ/L (8-16); BLOOD UREA NITROGEN 16 MG/DL (7-18); CALCIUM LEVEL 8.1 MG/DL (8.5-10.1); CARBON DIOXIDE LEVEL 30 MEQ/L (21-32); CHLORIDE LEVEL 99 MEQ/L (98-107); CREATININE FOR GFR 0.92 MG/DL (0.55-1.02); GLOMERULAR FILTRATION RATE > 60.0 (>51); GLUCOSE, FASTING 338 MG/DL (70-105); POTASSIUM SERUM 4.7 MEQ/L (3.5-5.1); SODIUM LEVEL 137 MEQ/L (136-145)
[2016-07-21] MEDS: METOCLOPRAMIDE 10 MG TAB PO SCH ×2 (08:48→12:14)
[2016-07-21] MEDS: DOCUSATE SODIUM 100 MG CAP PO SCH (09:00)
[2016-07-21] MEDS: PROPRANOLOL 20 MG TAB PO SCH ×2 (09:00→09:38)
[2016-07-21] MEDS: NYSTATIN 500,000 U/5 ML SUSP UDC SS SCH ×2 (09:34→12:14)
[2016-07-21] MEDS: ASPIRIN 81 MG ENTERIC TAB PO SCH (09:34)
[2016-07-21] MEDS: VITAMIN B COMPLEX/VIT C CAP PO SCH (09:34)
[2016-07-21] MEDS: OMEPRAZOLE 20 MG CAP PO SCH (09:34)
[2016-07-21] MEDS: VITAMIN D 1,000 INTERNATIONAL UNITS TABLET PO SCH (09:34)
[2016-07-21] MEDS: GABAPENTIN 300 MG CAP PO SCH (09:34)
[2016-07-21] MEDS: FERROUS SULFATE 325MG TAB PO SCH (09:34)
[2016-07-21] MEDS: busPIRone 10 MG TAB PO SCH (09:34)
[2016-07-21] MEDS: PARoxetine 20 MG TAB PO SCH (09:34)
[2016-07-21] MEDS: LORATADINE 10 MG TAB PO SCH (09:34)
[2016-07-21] MEDS: MONTELUKAST 10 MG TAB PO SCH (09:34)
[2016-07-21] MEDS: MULTIVITAMINS/MINERALS THERAP 1 TAB PO SCH (09:34)
[2016-07-21] MEDS: HumaLOG INSULIN (NovoLOG) PER UNIT SC SCH ×2 (09:35→13:58)
[2016-07-21] MEDS: ENOXAPARIN 40 MG/0.4 ML SYRINGE (J1650) SC SCH (09:35)
[2016-07-21 09:38] VITALS: BP 120/61
[2016-07-21] MEDS: LISINOPRIL 10 MG TAB PO SCH (09:38)
[2016-07-21] MEDS ORDERED: HumaLOG INSULIN (NovoLOG) PER UNIT SC SCH (12:00)
[2016-07-21] MEDS ORDERED: TOUJ1.2I SC (14:08)
--- NOTE | 2016-07-21 20:31 | DSES ---
DATE OF ADMISSION: 07/13/2016 DATE OF DISCHARGE: 07/21/2016 PRINCIPAL DIAGNOSES: 1. Poorly controlled type 1 diabetes mellitus with episodes of hypoglycemia and hyperglycemia. 2. Collapse. 3. Head injury. 4. Stress due to family tension. SECONDARY DIAGNOSES: 1. Gastroparesis. 2. Hypertension. 3. Obstructive sleep apnea. 4. Anxiety and depression. 5. Hyperlipidemia. 6. Celiac disease. 7. Asthma. 8. History of transient ischemic attack (TIA). CONSULTANTS: None. INVASIVE PROCEDURES: None. SUMMARY STATEMENT: This is a 50-year-old woman with a history of [id number] diabetes mellitus type 1, with past hospitalizations for episodes of hypoglycemia, who presented with an episode of collapse. The patient had a witnessed collapse and reportedly hit her head on the pavement of the driveway where she collapsed after standing up. This episode did not seem consistent with past episodes of hypoglycemia per her family, and she did not improve with a shot of Glucagon. She did disclose that she was under significant mental stress because of a poor relationship with her sister. During her hospitalization, her insulin regimen was adjusted on a daily basis. She had multiple episodes of hypoglycemia with a low glucose of 40, and hyperglycemia with glucose in the 600s. Because she was not able to be controlled with Levemir, she was asked to bring in her home Toujeo, and this was restarted at a lower dose than her home dose. She had previously been on 30 units of Toujeo at bedtime, and this was restarted on 20 units and then was titrated up to 24 units. On the day of discharge, she had no significant low or high blood sugars, having received 24 units of Toujeo the evening before. In general, her blood sugars tended to be a bit high in the 200s to 300s on this dose; however, we prefer that she be a little bit high than low, as she is generally asymptomatic with high blood sugars and has a history of very low blood sugar in the past. Aside from change in her Toujeo dose, all other medications remain the same including her carbohydrate coverage and insulin sliding scale that she takes with meals with Humalog. DISCHARGE PLANS: 1. Discharge Medications: - Toujeo 300 units/mL take 24 units subcutaneously at bedtime - acetaminophen 1000 mg every six hours as needed for pain - albuterol sulfate HFA inhaler two puffs every four hours as needed for shortness of breath - amitriptyline 25 mg by mouth at bedtime - ammonium lactate 12% topical daily - aspirin 81 mg by mouth daily - vitamin B complex one tablet by mouth daily - buspirone 30 mg by mouth twice daily - vitamin D 1000 units by mouth daily - clonazepam 0.5 mg by mouth daily as needed for anxiety - docusate sodium/senna one tablet by mouth twice daily as needed for constipation - ferrous sulfate 325 mg by mouth daily - gabapentin 600 mg three times a day - Humalog one unit per 0.01 mL per sliding scale - levalbuterol 0.63 mg/3 mL three times a day as needed for shortness of breath - lidocaine 5% ointment topically as needed for pain - lisinopril 10 mg by mouth daily - loratadine 10 mg by mouth daily - metoclopramide HCL 10 mg by mouth three times a day - montelukast sodium 10 mg by mouth daily - multivitamin one tablet by mouth daily - omeprazole 40 mg capsule twice daily - ondansetron 8 mg by mouth as needed for nausea - oxycodone/acetaminophen one tablet by mouth twice daily as needed for pain - MiraLax 17 grams by mouth daily as needed for constipation - propranolol 20 mg by mouth three times a day - sumatriptan succinate 6 mg subcutaneously as directed as needed for migraine - tizanidine hydrochloride 4 mg by mouth three times a day - varenicline tartrate 1 mg by mouth twice daily 2. Followup: With Sophia Ervin as previously scheduled on 07/25/2016, at 2 p.m. 3. Diet: Carbohydrate consistent diet. 4. Activity: As tolerated. 5. Pending studies: None. 6. Condition: Stable. 7. Prognosis: Good. HOSPITAL COURSE BY PROBLEM: 1. Type one diabetes mellitus, poorly controlled: The patient had multiple hypoglycemic and hyperglycemic episodes during her hospitalization. She was asymptomatic with her hyperglycemic episodes up to the 600s. She did require Glucagon and immediate supportive care with episodes of hypoglycemia in the 40s. She stabilized once she was restarted on her home Toujeo two days prior to discharge. She was discharged to take 24 units at bedtime in addition to Humalog. The patient states that she checks her blood sugar before meals and she takes carbohydrate coverage as well as sliding scale prior to meals. She subsequently sometimes checks blood sugars two hours after meals. I asked her to check blood sugars both before and two hours after each of her meals and at bedtime over the next few days prior to her followup appointment. Hermila may need to be adjusted further as an outpatient. 2. Episode of collapse: This may have been an episode of hypoglycemia versus due to emotional and mental stress. The patient was eager to be discharged from the hospital and denied feeling stressed at that point. 3. Unspecified head injury: The patient was reported to have hit her head, but she had no symptoms of concussion and no evidence of sequelae. All other medical problems were stable, and home medications were continued during this hospitalization.
== END 2016-07-21 15:13 | disposition home or self-care (01) | DRG 639 ==
LOC: M ED 16:36 → M ED INP 18:08 → M PCU 07-14 08:01 → M MSPAV 07-14 17:28
PROVIDERS: ADMIT Family Medicine; ATTEND Family Medicine
DX: E10.649 Type 1 diabetes mellitus with hypoglycemia without coma (principal); M85.9 Disorder of bone density and structure, unspecified; E10.43 Type 1 diabetes mellitus with diabetic autonomic (poly)neuropathy; E10.65 Type 1 diabetes mellitus with hyperglycemia; I10 Essential (primary) hypertension; G47.33 Obstructive sleep apnea (adult) (pediatric); F41.9 Anxiety disorder, unspecified; F32.9 Major depressive disorder, single episode, unspecified; E78.5 Hyperlipidemia, unspecified; J45.909 Unspecified asthma, uncomplicated; Z86.73 Personal history of transient ischemic attack (TIA), and cerebral infarction without residual deficits; K90.0 Celiac disease; Z79.899 Other long term (current) drug therapy; Z79.4 Long term (current) use of insulin; R55 Syncope and collapse; Z63.8 Other specified problems related to primary support group; K21.9 Gastro-esophageal reflux disease without esophagitis

== ENCOUNTER 2016-10-23 17:22 | Emergency (ER) | payer MEDICARE, MEDICAID ==
[~2016-10-23] VITALS: Ht 10.2 cm; Wt 75.9 kg
[~2016-10-23 17:22] MED LIST changes: +AMMO12CR4 TOP; -AUGM12TA10 PO; +AUGM12TA11 PO; -AUGM875T27 PO; +AUGM875T28 PO; +BUSP30TA PO; +CLIN150C14 PO; -CLIN1CAP5 PO; -DOCU100C PO; +DOCU100C16 PO; +FERR1TAB8 PO; -FERR325T PO; +LIDO1OIN2 TOP; -METH-107 PO; +METH1TAB40 PO; +MIRA33504 PO; +NASA0.0517; -NASA0.057; +ONDA8TAB8 PO; +PAXI20TA29 PO; -PAXI20TA3 PO; +PAXI40TA10 PO; -PAXI40TA2 PO; +PERC5TAB12 PO; -PERC5TAB6 PO; +PERC7.5T11 PO; -PERC7.5T3 PO; +PROP1TAB29 PO; +SENN1TAB10 PO; -SENN8.6T10 PO; +SENN8.6T8 PO; +TOUJ1.2I SC; +TRAZ-136 PO; -TRAZ100T4 PO; -TRAZ150T14 PO; +TRAZ1TAB14 PO; +VITA400C7 PO
[2016-10-23] MEDS ORDERED: NS 1,000 ML IV ONE (17:45)
[2016-10-23] MEDS ORDERED: ONDANSETRON 4MG/2ML VIAL (J2405) IV ONE (18:00)
--- NOTE | 2016-10-23 18:09 | REP ---
CT of the brain without IV contrast: Comparison is a 07/13/2016 and 07/04/2009. There is no hemorrhage, edema, mass effect or midline shift. The cortical stripe is unremarkable. Ventricles are normal size and midline. The visualized paranasal sinuses and mastoid air cells are clear. Impression: There is no hemorrhage, acute infarct or mass. Negative CT study of the brain. Signed by Ahsan Escalante MD 10/23/2016 06:00 P
[2016-10-23 18:17] LABS: BASO # 0.1 K/mm3 (0.0-0.2); BASO % 0.7 % (0.0-1.0); EOS # 0.2 K/mm3 (0.0-0.50); EOS % 1.5 % (0.0-3.0); LARGE UNSTAINED CELL # 0.1 K/mm3 (0.0-0.4); LARGE UNSTAINED CELL % 0.9 % (0.0-4.0); LYMPH # 1.2 K/mm3 (1.5-4.5); LYMPH % 8.1 % (24.0-44.0); MEAN CORPUSCULAR HEMOGLOBIN 31.9 pg (27.0-33.0); MEAN CORPUSCULAR HGB CONC 34.3 g/dl (32.0-36.5); MEAN CORPUSCULAR VOLUME 93.1 fl (80.0-96.0); MONO # 0.5 K/mm3 (0.0-0.8); MONO % 3.4 % (0.0-5.0); NEUTROPHILS % 85.3 % (36.0-66.0); PLATELET COUNT, AUTOMATED 322 k/mm3 (150-450); RED CELL DISTRIBUTION WIDTH 12.8 % (11.5-14.5); WHITE BLOOD COUNT 15.2 K/mm3 (4.0-10.0)
[2016-10-23 18:28] LABS: VENOUS BASE EXCESS 2.4 (-2.0-2.0); VENOUS O2 SATURATION 38.1 % (60.0-80.0); VENOUS PARTIAL PRESSURE CO2 62.5 mmHg (38.0-50.0); VENOUS PARTIAL PRESSURE O2 22.8 mmHg (30.0-50.0); VENOUS STANDARD HCO3 25.1 MEQ/L; VENOUS TOTAL CO2 32.4 MEQ/L (24.0-28.0)
[2016-10-23 18:43] LABS: ALBUMIN/GLOBULIN RATIO 0.89 (1.00-1.93); ALKALINE PHOSPHATASE 141 U/L (45-117); ALT/SGPT 44 U/L (12-78); ANION GAP 7 MEQ/L (8-16); AST/SGOT 42 U/L (15-37); BILIRUBIN,DIRECT < 0.1 MG/DL (0.0-0.2); BILIRUBIN,TOTAL 0.3 MG/DL (0.2-1.0); BLOOD UREA NITROGEN 20 MG/DL (7-18); CALCIUM LEVEL 9.8 MG/DL (8.5-10.1); CARBON DIOXIDE LEVEL 30 MEQ/L (21-32); CHLORIDE LEVEL 103 MEQ/L (98-107); CREATININE FOR GFR 0.94 MG/DL (0.55-1.02); GLOMERULAR FILTRATION RATE > 60.0 (>51); GLUCOSE, FASTING 126 MG/DL (70-105); POTASSIUM SERUM 3.7 MEQ/L (3.5-5.1); SODIUM LEVEL 140 MEQ/L (136-145); TOTAL PROTEIN 8.5 GM/DL (6.4-8.2)
--- NOTE | 2016-10-23 18:43 | REP ---
Chest single PA view: Comparison is 05/25/2016. The lung alanis are clear. The cardiac size is normal The anuja, mediastinum, and bony thorax are unremarkable. Impression: Negative PA chest. Signed by Ahsan Escalante MD 10/23/2016 06:34 P
[2016-10-23] MEDS ORDERED: ACETAMINOPHEN TAB 650MG DOSE (2X325MG) PO ONE (19:30)
[2016-10-23 20:27] LABS: VENOUS BASE EXCESS -2.8 (-2.0-2.0); VENOUS O2 SATURATION 93.5 % (60.0-80.0); VENOUS PARTIAL PRESSURE CO2 44.3 mmHg (38.0-50.0); VENOUS PARTIAL PRESSURE O2 71.7 mmHg (30.0-50.0); VENOUS TOTAL CO2 24.5 MEQ/L (24.0-28.0)
[2016-10-23] MEDS ORDERED: METOCLOPRAMIDE INJ 10MG/2ML VIAL (J2765) IV ONE (20:30)
[2016-10-23 20:45] LABS: ABG BASE EXCESS -3.5 (-2.0-2.0); ABG HCO3 20.4 MEQ/L (22.0-26.0); ABG PARTIAL PRESSURE CO2 33.4 mmHg (35.0-45.0); ABG PARTIAL PRESSURE O2 95.7 mmHg (75.0-100.0); ABG STANDARD HCO3 21.6 MEQ/L (22.0-26.0); ABG TOTAL CO2 21.4 MEQ/L (22.0-29.0); ABG pH (ARTERIAL) 7.404 UNITS (7.350-7.450)
[2016-10-23 20:52] LABS: METHADONE URINE NEGATIVE (NEGATIVE)
[2016-10-23 21:20] VITALS: BP 111/61
--- NOTE | 2016-10-24 07:40 | ECGEPIP ---
Stationary ECG Study [facility] - ED Test Date: 2016-10-23 Pat Name: ANA SCHWAB Department: Room: - Gender: F Delimer: dmitry : 1965 Requested By: DANICA ROSAS Order Number: [id number] Reading MD: Dena Orantes Measurements Intervals [place] Rate: 76 P: 49 SC: 192 QRS: 62 QRSD: 77 T: 58 QT: 382 QTc: 432 Interpretive Statements SINUS RHYTHM DELAYED R PROGRESSION DECREASED RATE 07/13/16 Electronically Signed On 10-24-2016 7:40:35 EDT by Dena Orantes
== END 2016-10-23 21:40 | disposition home or self-care (01) ==
LOC: M ED 17:22 → EDBD 17:22 → M ED 21:40
DX: R55 Syncope and collapse (principal); E11.649 Type 2 diabetes mellitus with hypoglycemia without coma; R11.2 Nausea with vomiting, unspecified; I11.9 Hypertensive heart disease without heart failure; F99 Mental disorder, not otherwise specified; Z86.73 Personal history of transient ischemic attack (TIA), and cerebral infarction without residual deficits; Z87.891 Personal history of nicotine dependence; Z91.018 Allergy to other foods; Z88.8 Allergy status to other drugs, medicaments and biological substances; Z91.048 Other nonmedicinal substance allergy status; Z79.899 Other long term (current) drug therapy; Z79.4 Long term (current) use of insulin; Z79.82 Long term (current) use of aspirin
CPT/HCPCS: 36600; 70450; 71010; 80048; 80076; 80307; 81001; 82010; 82550; 82553; 82803; 83036; 83690; 84484; 85025; 87086; 93005; 96361; 96374; 96375; 99285; G0480; J2405; J2765

== ENCOUNTER → 2016-12-02 | Outpatient (REF) | payer MEDICARE, MEDICAID | LOC: M SFHCPLAZ 11:58 | PROVIDERS: ATTEND Family Medicine | DX: Z00.01 Encounter for general adult medical examination with abnormal findings (principal); Z23 Encounter for immunization; F17.210 Nicotine dependence, cigarettes, uncomplicated; E10.65 Type 1 diabetes mellitus with hyperglycemia; F41.1 Generalized anxiety disorder; F34.1 Dysthymic disorder | CPT/HCPCS: 36415; 83036; 90686; 90834; G0008 ==

== ENCOUNTER 2017-03-22 16:06 | Emergency (ER) | payer MEDICARE, MEDICAID ==
[2017-03-22] MEDS: NS 1,000 ML IV (17:13)
[2017-03-22 17:22] LABS: BASO # 0.2 10^3/uL (0.0-0.2); BASO % 1.7 % (0.0-1.0); EOS # 0.5 10^3/uL (0.0-0.50); EOS % 5.3 % (0.0-3.0); HEMATOCRIT 40.3 % (36.0-47.0); HEMOGLOBIN 13.3 g/dl (12.0-16.0); IMMATURE GRANULOCYTE % 0.5 % (0-3.0); LYMPH # 2.7 10^3/uL (1.5-4.5); LYMPH % 27.1 % (24.0-44.0); MEAN CORPUSCULAR HEMOGLOBIN 31.2 pg (27.0-33.0); MEAN CORPUSCULAR VOLUME 94.6 fl (80.0-96.0); MONO # 0.6 10^3/uL (0.0-0.8); NEUTROPHILS # 5.9 10^3/uL (1.8-7.7); NEUTROPHILS % 59.4 % (36.0-66.0); PLATELET COUNT, AUTOMATED 349 10^3/uL (150-450); RED BLOOD COUNT 4.26 10^6/uL (4.00-5.40); RED CELL DISTRIBUTION WIDTH 12.9 % (11.5-14.5); WHITE BLOOD COUNT 9.9 10^3/uL (4.0-10.0)
[2017-03-22 17:49] LABS: ALBUMIN 3.8 GM/DL (3.2-5.2); ALBUMIN/GLOBULIN RATIO 1.06 (1.00-1.93); ALKALINE PHOSPHATASE 201 U/L (45-117); ALT/SGPT 169 U/L (12-78); ANION GAP 7 MEQ/L (8-16); AST/SGOT 25 U/L (7-37); BILIRUBIN,DIRECT < 0.1 MG/DL (0.0-0.2); BILIRUBIN,TOTAL 0.3 MG/DL (0.2-1.0); BLOOD UREA NITROGEN 13 MG/DL (7-18); CALCIUM LEVEL 8.6 MG/DL (8.5-10.1); CARBON DIOXIDE LEVEL 29 MEQ/L (21-32); CHLORIDE LEVEL 102 MEQ/L (98-107); CPK CREATINE PHOSPHOKINASE 67 U/L (26-192); CREATININE FOR GFR 0.86 MG/DL (0.55-1.30); GLOMERULAR FILTRATION RATE > 60.0 (>51); GLUCOSE, FASTING 174 MG/DL (70-100); POTASSIUM SERUM 3.8 MEQ/L (3.5-5.1); SALICYLATE LEVEL 1.9 MG/DL (5.0-30.0); SODIUM LEVEL 138 MEQ/L (136-145); TOTAL PROTEIN 7.4 GM/DL (6.4-8.2); TROPONIN I < 0.02 NG/ML (< 0.10)
[2017-03-22 17:55] LABS: CK-MB VALUE MASS 1.9 NG/ML (0.0-3.6); MB/CK RELATIVE INDEX 2.83 (< OR =4)
[2017-03-22 17:59] LABS: ACETAMINOPHEN LEVEL < 2.0 UG/ML (10.0-30.0)
[2017-03-22 18:38] LABS: BEDSIDE GLUCOSE 34 MG/DL (70-105)
[2017-03-22 18:38] LABS: BEDSIDE GLUCOSE 150 MG/DL (70-105)
[2017-03-22 18:38] LABS: BEDSIDE GLUCOSE 95 MG/DL (70-105)
== END 2017-03-22 18:26 | disposition home or self-care (01) ==
LOC: M ED 16:06
DX: E11.649 Type 2 diabetes mellitus with hypoglycemia without coma (principal); I10 Essential (primary) hypertension; Z86.73 Personal history of transient ischemic attack (TIA), and cerebral infarction without residual deficits; Z87.891 Personal history of nicotine dependence; K90.41 Non-celiac gluten sensitivity; Z82.49 Family history of ischemic heart disease and other diseases of the circulatory system; Z79.82 Long term (current) use of aspirin; Z79.4 Long term (current) use of insulin; Z79.899 Other long term (current) drug therapy; Z91.89 Other specified personal risk factors, not elsewhere classified; Z88.8 Allergy status to other drugs, medicaments and biological substances
CPT/HCPCS: 82550

== ENCOUNTER → 2017-03-25 | Outpatient (REF) | payer MEDICARE, MEDICAID ==
[2017-03-25 11:37] LABS: IONIZED CALCIUM 4.4 MG/DL (4.5-5.3)
[2017-03-25 13:22] LABS: FOLATE > 24.0 NG/ML (>5.4); VITAMIN B12 LEVEL 1229 PG/ML (247-911)
[2017-04-01 10:13] LABS: COPPER PLASMA 92 ug/dL (72-166); SELENIUM LEVEL BLOOD 215 ug/L (100-340); VITAMIN B1 LEVEL WHOLE BLOOD 127.7 nmol/L (66.5-200.0); VITAMIN B6,PYRIDOXAL PHOSPHATE 27.2 ug/L (2.0-32.8); VITAMIN E LEVEL 14.8 mg/L (5.3-16.8); VITAMIN K1 0.51 ng/mL (0.13-1.88); ZINC PLASMA 73 ug/dL (56-134)
[2017-04-01 10:13] LABS: VITAMIN A, RETINOL LEVEL 82 ug/dL (20-65)
== END ==
LOC: M SFHCPLAZ 10:00
DX: Z98.84 Bariatric surgery status (principal); F41.8 Other specified anxiety disorders; E11.65 Type 2 diabetes mellitus with hyperglycemia; F41.1 Generalized anxiety disorder; Z79.4 Long term (current) use of insulin; Z79.82 Long term (current) use of aspirin; E55.9 Vitamin D deficiency, unspecified; Z79.891 Long term (current) use of opiate analgesic; Z79.899 Other long term (current) drug therapy
CPT/HCPCS: 82525

== ENCOUNTER → 2017-04-18 | Outpatient (REF) | payer MEDICARE, MEDICAID ==
[2017-04-23 00:11] LABS: O+P EXAM Final report (.)
== END ==
LOC: M SFHCPLAZ 10:27
DX: Z20.7 Contact with and (suspected) exposure to pediculosis, acariasis and other infestations (principal)
CPT/HCPCS: 87177

== ENCOUNTER → 2017-04-22 | Outpatient (REF) | payer MEDICARE, MEDICAID ==
[2017-04-22 15:35] LABS: ANION GAP 7 MEQ/L (8-16); BLOOD UREA NITROGEN 11 MG/DL (7-18); CALCIUM LEVEL 8.3 MG/DL (8.5-10.1); CARBON DIOXIDE LEVEL 29 MEQ/L (21-32); CHLORIDE LEVEL 102 MEQ/L (98-107); CREATININE FOR GFR 0.77 MG/DL (0.55-1.30); GLOMERULAR FILTRATION RATE > 60.0 (>51); GLUCOSE, FASTING 263 MG/DL (70-100); POTASSIUM SERUM 4.8 MEQ/L (3.5-5.1); SODIUM LEVEL 138 MEQ/L (136-145)
[2017-04-22 15:39] LABS: PTH INTACT 97.6 PG/ML (18.5-88.0)
[2017-04-22 15:41] LABS: CREATININE, URINE 97.6 MG/DL; MALB URINE SIEMENS 9.1 MG/L; MAU/CREAT RATIO 9.3 MCG/MG (0.0-30.0)
[2017-04-22 15:55] LABS: ESTIMATED AVERAGE GLUCOSE 197 MG/DL (60-110); HEMOGLOBIN A1c 8.5 %
== END ==
LOC: M SFHCPLAZ 10:46
DX: E10.65 Type 1 diabetes mellitus with hyperglycemia (principal); E83.51 Hypocalcemia
CPT/HCPCS: 83036

== ENCOUNTER → 2017-05-21 | Outpatient (REF) | payer MEDICARE, MEDICAID ==
[2017-05-21 12:34] LABS: MAGNESIUM LEVEL 2.1 MG/DL (1.8-2.4)
== END ==
LOC: M SFHCPLAZ 09:54
DX: E83.51 Hypocalcemia (principal)
CPT/HCPCS: 83735

== ENCOUNTER → 2017-08-19 | Outpatient (REF) | payer MEDICARE, OTHER, MEDICAID ==
[2017-08-19 10:47] LABS: IONIZED CALCIUM 4.6 MG/DL (4.5-5.3)
[2017-08-19 11:23] LABS: PROLACTIN 75.9 NG/ML
[2017-08-19 11:26] LABS: FREE T4 0.86 NG/DL (0.76-1.46)
[2017-08-19 11:27] LABS: PTH INTACT 51.2 PG/ML (18.5-88.0)
[2017-08-19 11:29] LABS: ESTIMATED AVERAGE GLUCOSE 194 MG/DL (60-110); HEMOGLOBIN A1c 8.4 %
== END ==
LOC: M SFHCPLAZ 08:59
DX: E83.51 Hypocalcemia (principal); F41.8 Other specified anxiety disorders; E10.42 Type 1 diabetes mellitus with diabetic polyneuropathy; E34.9 Endocrine disorder, unspecified
CPT/HCPCS: 84146

== ENCOUNTER 2017-09-26 04:14 | Emergency (ER) | payer MEDICARE, MEDICAID ==
[2017-09-26] MEDS: NORCO, ANEXSIA 5/325MG TABLET (HYDROcodone/ACETAMINOPHEN) PO (07:09)
[2017-09-26 11:39] LABS: BEDSIDE GLUCOSE 426 MG/DL (70-105)
== END 2017-09-26 07:16 | disposition home or self-care (01) ==
LOC: M ED 04:14
DX: S93.601A Unspecified sprain of right foot, initial encounter (principal); X58.XXXA Exposure to other specified factors, initial encounter; Y92.098 Other place in other non-institutional residence as the place of occurrence of the external cause; E11.649 Type 2 diabetes mellitus with hypoglycemia without coma; I10 Essential (primary) hypertension; E78.9 Disorder of lipoprotein metabolism, unspecified; J45.909 Unspecified asthma, uncomplicated; K21.9 Gastro-esophageal reflux disease without esophagitis; Z86.73 Personal history of transient ischemic attack (TIA), and cerebral infarction without residual deficits; Z98.84 Bariatric surgery status
CPT/HCPCS: 73610

== ENCOUNTER 2017-11-16 22:43 | Emergency (ER) | payer MEDICARE, MEDICAID ==
[2017-11-17 00:02] LABS: BEDSIDE GLUCOSE 179 MG/DL (70-105)
[2017-11-20 12:39] LABS: BEDSIDE GLUCOSE 239 MG/DL (70-105)
== END 2017-11-17 00:59 | disposition home or self-care (01) ==
LOC: M ED 11-17 00:59
DX: E11.649 Type 2 diabetes mellitus with hypoglycemia without coma (principal); S00.03XA Contusion of scalp, initial encounter; W01.198A Fall on same level from slipping, tripping and stumbling with subsequent striking against other object, initial encounter; Y92.89 Other specified places as the place of occurrence of the external cause; J44.9 Chronic obstructive pulmonary disease, unspecified; G43.909 Migraine, unspecified, not intractable, without status migrainosus; G89.29 Other chronic pain; Z91.048 Other nonmedicinal substance allergy status; Z88.8 Allergy status to other drugs, medicaments and biological substances; Z91.018 Allergy to other foods; Z79.899 Other long term (current) drug therapy; Z79.82 Long term (current) use of aspirin; Z79.4 Long term (current) use of insulin
CPT/HCPCS: 70450

== ENCOUNTER → 2017-12-03 | Outpatient (REF) | payer MEDICARE, MEDICAID ==
[2017-12-03 14:02] LABS: ESTIMATED AVERAGE GLUCOSE 194 MG/DL (60-110); HEMOGLOBIN A1c 8.4 %
[2017-12-03 14:11] LABS: CREATININE, URINE 70.6 MG/DL; MAU/CREAT RATIO 15.6 MCG/MG (0.0-30.0)
[2017-12-03 14:23] LABS: GOLD SPEC TUBE RECIEVED
[2017-12-03 14:26] LABS: ANION GAP 7 MEQ/L (8-16); BLOOD UREA NITROGEN 14 MG/DL (7-18); CALCIUM LEVEL 8.9 MG/DL (8.5-10.1); CARBON DIOXIDE LEVEL 28 MEQ/L (21-32); CHLORIDE LEVEL 104 MEQ/L (98-107); CHOLESTEROL LEVEL 148 MG/DL (<200); CHOLESTEROL RISK RATIO 2.276 (<5); CREATININE FOR GFR 0.85 MG/DL (0.55-1.30); FREE T4 0.84 NG/DL (0.76-1.46); GLOMERULAR FILTRATION RATE > 60.0 (>51); GLUCOSE, FASTING 281 MG/DL (70-100); HDL CHOLESTEROL 65 MG/DL (>40); IRON (FE) 88 UG/DL (50-170); LDL CHOLESTEROL 65 MG/DL (<100); NON-HDL-C 83 MG/DL; PERCENT SATURATION 28.9 % (13.2-45.0); POTASSIUM SERUM 4.8 MEQ/L (3.5-5.1); SODIUM LEVEL 139 MEQ/L (136-145); TOTAL IRON BINDING CAPACITY 304 UG/DL (250-450); TRIGLYCERIDES LEVEL 90 MG/DL (<150)
[2017-12-03 14:27] LABS: TOTAL 25(OH) VITAMIN D 52.1 NG/ML (30.0-100.0)
== END ==
LOC: M SFHCPLAZ 11:05
DX: D50.9 Iron deficiency anemia, unspecified (principal); Z12.4 Encounter for screening for malignant neoplasm of cervix; F32.9 Major depressive disorder, single episode, unspecified; E78.2 Mixed hyperlipidemia; E10.65 Type 1 diabetes mellitus with hyperglycemia; E55.9 Vitamin D deficiency, unspecified; E67.0 Hypervitaminosis A

== ENCOUNTER → 2017-12-09 | Outpatient (CLI) | payer MEDICARE, MEDICAID | LOC: M RAD 09:56 | DX: M79.604 Pain in right leg (principal); M79.605 Pain in left leg; I73.9 Peripheral vascular disease, unspecified | CPT/HCPCS: 93925 ==

== ENCOUNTER 2018-01-12 18:52 | Inpatient (IN) | payer MEDICARE, MEDICAID ==
[2018-01-12] MEDS: ONDANSETRON 4MG/2ML VIAL (J2405) IV (20:14)
[2018-01-12] MEDS: NS 1,000 ML IV (20:14)
[2018-01-12 20:15] LABS: BASO # 0.1 10^3/uL (0.0-0.2); BASO % 1.6 % (0.0-1.0); EOS # 0.4 10^3/uL (0.0-0.50); EOS % 4.1 % (0.0-3.0); HEMATOCRIT 41.2 % (36.0-47.0); HEMOGLOBIN 12.7 g/dl (12.0-15.5); IMMATURE GRANULOCYTE % 0.2 % (0-3.0); LYMPH # 1.2 10^3/uL (1.5-4.5); LYMPH % 13.7 % (24.0-44.0); MEAN CORPUSCULAR HEMOGLOBIN 32.1 pg (27.0-33.0); MEAN CORPUSCULAR HGB CONC 30.8 g/dl (32.0-36.5); MONO # 0.6 10^3/uL (0.0-0.8); MONO % 7.2 % (0.0-5.0); NEUTROPHILS # 6.4 10^3/uL (1.8-7.7); NEUTROPHILS % 73.2 % (36.0-66.0); PLATELET COUNT, AUTOMATED 239 10^3/uL (150-450); RED BLOOD COUNT 3.96 10^6/uL (4.00-5.40); RED CELL DISTRIBUTION WIDTH 13.2 % (11.5-14.5); WHITE BLOOD COUNT 8.8 10^3/uL (4.0-10.0)
[2018-01-12 20:20] LABS: KETONE, URINE AUTO RFX TRACE mg/dL (NEGATIVE); LEUKOCYTE ESTERASE UR AUTO RFX NEGATIVE (NEGATIVE); NITRITE, URINE AUTO RFX NEGATIVE (NEGATIVE); RBC, URINE AUTO RFX 0 /HPF (0-3); SPECIFIC GRAVITY UR AUTO RFX 1.021 (1.002-1.035); SQUAM EPITHELIAL CELL UR AURFX 0 /HPF (0-6); WBC, URINE AUTO RFX 0 /HPF (0-3)
[2018-01-12 20:44] LABS: ALBUMIN 3.1 GM/DL (3.2-5.2); ALBUMIN/GLOBULIN RATIO 0.97 (1.00-1.93); ALKALINE PHOSPHATASE 221 U/L (45-117); ALT/SGPT 739 U/L (12-78); ANION GAP 11 MEQ/L (8-16); AST/SGOT 1601 U/L (7-37); BILIRUBIN,DIRECT < 0.1 MG/DL (0.0-0.2); BILIRUBIN,TOTAL 0.3 MG/DL (0.2-1.0); BLOOD UREA NITROGEN 17 MG/DL (7-18); CALCIUM LEVEL 7.8 MG/DL (8.5-10.1); CARBON DIOXIDE LEVEL 22 MEQ/L (21-32); CHLORIDE LEVEL 94 MEQ/L (98-107); CREATININE FOR GFR 1.18 MG/DL (0.55-1.30); GLOMERULAR FILTRATION RATE 50.8 (>51); GLUCOSE, FASTING 933 MG/DL (70-100); LIPASE 303 U/L (73-393); POTASSIUM SERUM 5.3 MEQ/L (3.5-5.1); SODIUM LEVEL 127 MEQ/L (136-145); TOTAL PROTEIN 6.3 GM/DL (6.4-8.2)
[2018-01-12] MEDS: HumuLIN R (REGULAR) INSULIN (NovoLIN R) **100U/ML** PER UNIT IV ×2 (21:02→22:33)
[2018-01-12 21:48] LABS: ABG BASE EXCESS -1.8 (-2.0-2.0); ABG HCO3 23.1 MEQ/L (22.0-26.0); ABG O2 SATURATION 97.2 % (95.0-99.0); ABG PARTIAL PRESSURE CO2 40.1 mmHg (35.0-45.0); ABG PARTIAL PRESSURE O2 89.9 mmHg (75.0-100.0); ABG TOTAL CO2 24.4 MEQ/L (22.0-29.0); ABG pH (ARTERIAL) 7.379 UNITS (7.350-7.450)
[2018-01-12] MEDS: traMADol 50 MG TAB PO (21:56)
[2018-01-13 00:31] LABS: BEDSIDE GLUCOSE 405 MG/DL (70-105)
[2018-01-13] MEDS: MIDAZOLAM INJ 2 MG/2 ML VIAL (J2250) IV (00:45)
[2018-01-13] MEDS: NS 1,000 ML IV ×2 (00:56→04:19)
[2018-01-13] MEDS ORDERED: BISACODYL 5 MG TAB PO (01:00)
[2018-01-13] MEDS ORDERED: SENOKOT S TAB PO (01:00)
[2018-01-13] MEDS: VARENICLINE 1 MG TABLET PO ×3 (01:23→21:08)
[2018-01-13] MEDS ORDERED: IPRATROPIUM 0.5MG/ALBUTEROL 2.5MG INH SOL UD 3ML (DUONEB)(J7620) NEB (01:30)
[2018-01-13 02:22] LABS: BEDSIDE GLUCOSE 409 MG/DL (70-105)
[2018-01-13] MEDS: AMITRIPTYLINE 25 MG TAB PO ×2 (02:58→21:08)
[2018-01-13] MEDS: GABAPENTIN 300 MG CAP PO ×4 (02:58→21:08)
[2018-01-13] MEDS: DESVENLAFAXINE ER 50 MG TABLET (PRISTIQ) PO ×2 (02:58→21:08)
[2018-01-13] MEDS: tiZANidine 4 MG TAB PO ×4 (02:59→21:08)
[2018-01-13] MEDS: OMEPRAZOLE 20 MG CAP PO ×3 (02:59→21:08)
[2018-01-13] MEDS: ONDANSETRON 4 MG TAB (S0181) PO (04:25)
[2018-01-13] MEDS: PERCOCET 5MG/325MG TAB PO ×2 (04:27→16:56)
[2018-01-13] MEDS: LEVEMIR (INSULIN DETEMIR) 1 UNITS/0.01ML SC ×3 (04:28→21:07)
[2018-01-13 06:37] LABS: BEDSIDE GLUCOSE 318 MG/DL (70-105)
[2018-01-13] MEDS: HumaLOG INSULIN (NovoLOG) PER UNIT SC ×4 (06:52→21:00)
[2018-01-13 07:21] LABS: HEMATOCRIT 35.9 % (36.0-47.0); HEMOGLOBIN 11.8 g/dl (12.0-15.5); MEAN CORPUSCULAR HEMOGLOBIN 31.7 pg (27.0-33.0); MEAN CORPUSCULAR HGB CONC 32.9 g/dl (32.0-36.5); MEAN CORPUSCULAR VOLUME 96.5 fl (80.0-96.0); PLATELET COUNT, AUTOMATED 227 10^3/uL (150-450); RED BLOOD COUNT 3.72 10^6/uL (4.00-5.40); RED CELL DISTRIBUTION WIDTH 12.8 % (11.5-14.5)
[2018-01-13 07:26] LABS: ACETAMINOPHEN LEVEL 7.9 UG/ML (10.0-30.0)
[2018-01-13 07:49] LABS: CONTROL LINE MONO INT CTR LINE PRESENT; IMMUNOGLOBULIN A 126 MG/DL (70-400); IRON (FE) 77 UG/DL (50-170); MONO SCRN NEGATIVE (NEGATIVE); PERCENT SATURATION 27.8 % (13.2-45.0); TOTAL IRON BINDING CAPACITY 277 UG/DL (250-450)
[2018-01-13 07:54] LABS: ALBUMIN 2.8 GM/DL (3.2-5.2); ALKALINE PHOSPHATASE 186 U/L (45-117); ALT/SGPT 481 U/L (12-78); ANION GAP 8 MEQ/L (8-16); AST/SGOT 417 U/L (7-37); BILIRUBIN,TOTAL 0.3 MG/DL (0.2-1.0); BLOOD UREA NITROGEN 11 MG/DL (7-18); CALCIUM LEVEL 7.8 MG/DL (8.5-10.1); CARBON DIOXIDE LEVEL 27 MEQ/L (21-32); CHLORIDE LEVEL 104 MEQ/L (98-107); CREATININE FOR GFR 0.76 MG/DL (0.55-1.30); GLOMERULAR FILTRATION RATE > 60.0 (>51); GLUCOSE, FASTING 313 MG/DL (70-100); MAGNESIUM LEVEL 1.8 MG/DL (1.8-2.4); POTASSIUM SERUM 4.2 MEQ/L (3.5-5.1); SODIUM LEVEL 139 MEQ/L (136-145); TOTAL PROTEIN 5.9 GM/DL (6.4-8.2)
[2018-01-13 09:01] LABS: BEDSIDE GLUCOSE > 600 MG/DL (70-105)
[2018-01-13 09:01] LABS: BEDSIDE GLUCOSE > 600 MG/DL (70-105)
[2018-01-13] MEDS: ASPIRIN 81 MG ENTERIC TAB PO (10:20)
[2018-01-13] MEDS: LORATADINE 10 MG TAB PO (10:20)
[2018-01-13] MEDS: LISINOPRIL 10 MG TAB PO (10:20)
[2018-01-13] MEDS: FERROUS SULFATE 325MG TAB PO (10:20)
[2018-01-13] MEDS: MONTELUKAST 10 MG TAB PO (10:20)
[2018-01-13] MEDS: HEPARIN SOD (PORCINE) 5000 UNITS/ML VIAL SC ×2 (10:21→21:00)
[2018-01-13 10:34] LABS: BEDSIDE GLUCOSE 101 MG/DL (70-105)
[2018-01-13 11:07] LABS: INR 1.03; PROTHROMBIN TIME 13.6 SECONDS (12.1-14.4)
[2018-01-13 11:08] LABS: PARTIAL THROMBOPLASTIN TIME 24.3 SECONDS (25.4-37.6)
[2018-01-13 11:27] LABS: BEDSIDE GLUCOSE 79 MG/DL (70-105)
[2018-01-13 13:14] LABS: BEDSIDE GLUCOSE 160 MG/DL (70-105)
[2018-01-13] MEDS: ATORVASTATIN 20 MG TAB PO (15:41)
[2018-01-13 16:53] LABS: BEDSIDE GLUCOSE 359 MG/DL (70-105)
[2018-01-13] MEDS: LORazepam 2 MG/ML VIAL (J2060) IV (19:30)
[2018-01-13 21:07] LABS: BEDSIDE GLUCOSE 149 MG/DL (70-105)
[2018-01-13 23:40] LABS: BEDSIDE GLUCOSE 151 MG/DL (70-105)
[2018-01-14] MEDS: hydrOXYzine 25 MG TAB PO (04:54)
[2018-01-14 05:06] LABS: HEMATOCRIT 36.6 % (36.0-47.0); HEMOGLOBIN 11.9 g/dl (12.0-15.5); MEAN CORPUSCULAR HEMOGLOBIN 31.5 pg (27.0-33.0); MEAN CORPUSCULAR HGB CONC 32.5 g/dl (32.0-36.5); MEAN CORPUSCULAR VOLUME 96.8 fl (80.0-96.0); PLATELET COUNT, AUTOMATED 223 10^3/uL (150-450); RED BLOOD COUNT 3.78 10^6/uL (4.00-5.40); RED CELL DISTRIBUTION WIDTH 13.2 % (11.5-14.5); WHITE BLOOD COUNT 6.5 10^3/uL (4.0-10.0)
[2018-01-14 05:32] LABS: ALBUMIN 2.9 GM/DL (3.2-5.2); ALBUMIN/GLOBULIN RATIO 0.88 (1.00-1.93); ALKALINE PHOSPHATASE 246 U/L (45-117); ALT/SGPT 712 U/L (12-78); ANION GAP 5 MEQ/L (8-16); AST/SGOT 534 U/L (7-37); BILIRUBIN,TOTAL 0.2 MG/DL (0.2-1.0); BLOOD UREA NITROGEN 10 MG/DL (7-18); CALCIUM LEVEL 8.5 MG/DL (8.5-10.1); CARBON DIOXIDE LEVEL 28 MEQ/L (21-32); CHLORIDE LEVEL 110 MEQ/L (98-107); GLOMERULAR FILTRATION RATE > 60.0 (>51); GLUCOSE, FASTING 79 MG/DL (70-100); SODIUM LEVEL 143 MEQ/L (136-145); TOTAL PROTEIN 6.2 GM/DL (6.4-8.2)
[2018-01-14] MEDS: HumaLOG INSULIN (NovoLOG) PER UNIT SC ×4 (07:01→20:32)
[2018-01-14] MEDS: ASPIRIN 81 MG ENTERIC TAB PO (08:29)
[2018-01-14] MEDS: MONTELUKAST 10 MG TAB PO (08:29)
[2018-01-14] MEDS: GABAPENTIN 300 MG CAP PO ×3 (08:29→20:32)
[2018-01-14] MEDS: ATORVASTATIN 20 MG TAB PO (08:29)
[2018-01-14] MEDS: PERCOCET 5MG/325MG TAB PO ×2 (08:29→17:00)
[2018-01-14] MEDS: FERROUS SULFATE 325MG TAB PO (08:29)
[2018-01-14] MEDS: OMEPRAZOLE 20 MG CAP PO ×2 (08:30→20:32)
[2018-01-14] MEDS: HEPARIN SOD (PORCINE) 5000 UNITS/ML VIAL SC ×2 (08:30→20:32)
[2018-01-14] MEDS: VARENICLINE 1 MG TABLET PO ×2 (08:30→20:32)
[2018-01-14] MEDS: LORATADINE 10 MG TAB PO (08:30)
[2018-01-14] MEDS: LISINOPRIL 10 MG TAB PO (08:31)
[2018-01-14] MEDS: LEVEMIR (INSULIN DETEMIR) 1 UNITS/0.01ML SC ×2 (08:31→20:33)
[2018-01-14 10:56] LABS: HIV 1&2 SCREEN CENTAUR NEGATIVE (NEGATIVE)
[2018-01-14 11:05] LABS: HEPATITIS A ANTIBODY IGM NEGATIVE (NEGATIVE); HEPATITIS B CORE ANTIBODY IGM NEGATIVE (NEGATIVE); HEPATITIS B SURFACE ANTIGEN NEGATIVE (NEGATIVE); HIV 1&2 SCREEN CENTAUR NEGATIVE (NEGATIVE)
[2018-01-14 11:05] LABS: HEPATITIS C VIRUS ABY INDEX 0.1 INDEX (<0.8)
[2018-01-14 11:36] LABS: BEDSIDE GLUCOSE 114 MG/DL (70-105)
[2018-01-14 13:05] LABS: CHOLESTEROL LEVEL 148 MG/DL (<200); CHOLESTEROL RISK RATIO 2.176 (<5); HDL CHOLESTEROL 68 MG/DL (>40); LDL CHOLESTEROL 64 MG/DL (<100); NON-HDL-C 80 MG/DL; TRIGLYCERIDES LEVEL 82 MG/DL (<150)
[2018-01-14] MEDS: clonazePAM 0.5 MG TAB PO (13:37)
[2018-01-14 16:35] LABS: BEDSIDE GLUCOSE 112 MG/DL (70-105)
[2018-01-14 18:20] LABS: ETHYL ALCOHOL (ETHANOL) < 0.003 % (0.000-0.010)
[2018-01-14 20:15] LABS: BEDSIDE GLUCOSE 39 MG/DL (70-105)
[2018-01-14 20:25] LABS: BEDSIDE GLUCOSE 46 MG/DL (70-105)
[2018-01-14] MEDS ORDERED: GLUCOSE 4 GM CHEW TABLET PO (20:30)
[2018-01-14] MEDS ORDERED: GLUCAGON FOR INJ 1 MG VIAL (J1610) SC (20:30)
[2018-01-14] MEDS: DESVENLAFAXINE ER 50 MG TABLET (PRISTIQ) PO (20:32)
[2018-01-14] MEDS: DEXTROSE 50% 50 ML SYRINGE IV (20:33)
[2018-01-14 20:48] LABS: BEDSIDE GLUCOSE CONFIRMATION 45 MG/DL (LESS THAN 200)
[2018-01-14 22:04] LABS: BEDSIDE GLUCOSE 466 MG/DL (70-105)
[2018-01-15 00:11] LABS: BEDSIDE GLUCOSE 561 MG/DL (70-105)
[2018-01-15 01:29] LABS: BEDSIDE GLUCOSE 468 MG/DL (70-105)
[2018-01-15 05:49] LABS: HEMATOCRIT 39.1 % (36.0-47.0); HEMOGLOBIN 12.7 g/dl (12.0-15.5); MEAN CORPUSCULAR HEMOGLOBIN 31.8 pg (27.0-33.0); MEAN CORPUSCULAR HGB CONC 32.5 g/dl (32.0-36.5); MEAN CORPUSCULAR VOLUME 97.8 fl (80.0-96.0); PLATELET COUNT, AUTOMATED 226 10^3/uL (150-450); RED CELL DISTRIBUTION WIDTH 13.3 % (11.5-14.5); WHITE BLOOD COUNT 6.3 10^3/uL (4.0-10.0)
[2018-01-15 06:23] LABS: ALBUMIN 2.8 GM/DL (3.2-5.2); ALBUMIN/GLOBULIN RATIO 0.85 (1.00-1.93); ALKALINE PHOSPHATASE 242 U/L (45-117); ALT/SGPT 471 U/L (12-78); ANION GAP 6 MEQ/L (8-16); AST/SGOT 189 U/L (7-37); BILIRUBIN,TOTAL 0.2 MG/DL (0.2-1.0); BLOOD UREA NITROGEN 7 MG/DL (7-18); CALCIUM LEVEL 8.4 MG/DL (8.5-10.1); CARBON DIOXIDE LEVEL 28 MEQ/L (21-32); CHLORIDE LEVEL 104 MEQ/L (98-107); CREATININE FOR GFR 0.84 MG/DL (0.55-1.30); GLOMERULAR FILTRATION RATE > 60.0 (>51); GLUCOSE, FASTING 446 MG/DL (70-100); MAGNESIUM LEVEL 1.8 MG/DL (1.8-2.4); POTASSIUM SERUM 4.2 MEQ/L (3.5-5.1); SODIUM LEVEL 138 MEQ/L (136-145); TOTAL PROTEIN 6.1 GM/DL (6.4-8.2)
[2018-01-15 07:48] LABS: BEDSIDE GLUCOSE 471 MG/DL (70-105)
[2018-01-15] MEDS: GABAPENTIN 300 MG CAP PO ×3 (07:58→20:01)
[2018-01-15] MEDS: LORATADINE 10 MG TAB PO (07:58)
[2018-01-15] MEDS: ATORVASTATIN 20 MG TAB PO (07:58)
[2018-01-15] MEDS: MONTELUKAST 10 MG TAB PO (07:58)
[2018-01-15] MEDS: OMEPRAZOLE 20 MG CAP PO ×2 (07:59→20:00)
[2018-01-15] MEDS: ASPIRIN 81 MG ENTERIC TAB PO (07:59)
[2018-01-15] MEDS: FERROUS SULFATE 325MG TAB PO (07:59)
[2018-01-15] MEDS: LISINOPRIL 10 MG TAB PO (07:59)
[2018-01-15] MEDS: VARENICLINE 1 MG TABLET PO ×2 (07:59→20:00)
[2018-01-15] MEDS: LEVEMIR (INSULIN DETEMIR) 1 UNITS/0.01ML SC ×3 (08:00→21:15)
[2018-01-15] MEDS: HEPARIN SOD (PORCINE) 5000 UNITS/ML VIAL SC ×2 (08:00→20:01)
[2018-01-15] MEDS: HumaLOG INSULIN (NovoLOG) PER UNIT SC ×4 (08:00→21:00)
[2018-01-15 08:43] LABS: ESTIMATED AVERAGE GLUCOSE 223 MG/DL (60-110); HEMOGLOBIN A1c 9.4 %
[2018-01-15] MEDS: MAGNESIUM GLUCONATE 500 MG TAB PO ×2 (10:04→20:01)
[2018-01-15 10:10] LABS: BEDSIDE GLUCOSE 458 MG/DL (70-105)
[2018-01-15 10:12] LABS: ACETONE/KETONE 2.09 MG/DL (<2.81)
[2018-01-15 11:39] LABS: BEDSIDE GLUCOSE 348 MG/DL (70-105)
[2018-01-15] MEDS: clonazePAM 0.5 MG TAB PO (11:42)
[2018-01-15 14:16] LABS: BEDSIDE GLUCOSE 124 MG/DL (70-105)
[2018-01-15] MEDS: ACETAMINOPHEN TAB 650MG DOSE (2X325MG) PO (14:49)
[2018-01-15 15:56] LABS: BEDSIDE GLUCOSE 108 MG/DL (70-105)
[2018-01-15 17:53] LABS: BEDSIDE GLUCOSE 62 MG/DL (70-105)
[2018-01-15 18:33] LABS: BEDSIDE GLUCOSE 35 MG/DL (70-105)
[2018-01-15 19:20] LABS: BEDSIDE GLUCOSE 255 MG/DL (70-105)
[2018-01-15] MEDS: PERCOCET 5MG/325MG TAB PO (19:56)
[2018-01-15] MEDS: DESVENLAFAXINE ER 50 MG TABLET (PRISTIQ) PO (20:00)
[2018-01-15 22:00] LABS: BEDSIDE GLUCOSE 396 MG/DL (70-105)
[2018-01-15 23:36] LABS: BEDSIDE GLUCOSE 284 MG/DL (70-105)
[2018-01-16 00:30] LABS: ANCA-ATYPICAL <1:20 titer (Neg:<1:20); ANTI-MITOCHONDRIAL ANTIBODY 2.1 Units (0.0-20.0); ANTINUCLEAR ANTIBODIES DIRECT Negative (Negative); CERULOPLASMIN 21.4 mg/dL (19.0-39.0); CYTOPLASMIC NEUTROP AB ANCA-C <1:20 titer (Neg:<1:20); LIVER-KIDNEY MICROSOMAL ABY 1.1 Units (0.0-20.0); PERINUCLEAR AB ANCA-P <1:20 titer (Neg:<1:20); TISSUE TRANSGLUTAMINASE IgA <2 U/mL (0-3)
[2018-01-16 01:52] LABS: BEDSIDE GLUCOSE 224 MG/DL (70-105)
[2018-01-16 03:55] LABS: BEDSIDE GLUCOSE 147 MG/DL (70-105)
[2018-01-16] MEDS: ACETAMINOPHEN TAB 650MG DOSE (2X325MG) PO ×2 (04:45→05:15)
[2018-01-16 05:35] LABS: HEMATOCRIT 38.2 % (36.0-47.0); HEMOGLOBIN 12.3 g/dl (12.0-15.5); MEAN CORPUSCULAR HEMOGLOBIN 31.5 pg (27.0-33.0); MEAN CORPUSCULAR HGB CONC 32.2 g/dl (32.0-36.5); MEAN CORPUSCULAR VOLUME 97.9 fl (80.0-96.0); PLATELET COUNT, AUTOMATED 233 10^3/uL (150-450); RED CELL DISTRIBUTION WIDTH 13.4 % (11.5-14.5); WHITE BLOOD COUNT 6.8 10^3/uL (4.0-10.0)
[2018-01-16 05:42] LABS: BEDSIDE GLUCOSE 165 MG/DL (70-105)
[2018-01-16 06:02] LABS: ALBUMIN 2.8 GM/DL (3.2-5.2); ALBUMIN/GLOBULIN RATIO 0.82 (1.00-1.93); ALKALINE PHOSPHATASE 263 U/L (45-117); ALT/SGPT 447 U/L (12-78); ANION GAP 6 MEQ/L (8-16); AST/SGOT 295 U/L (7-37); BILIRUBIN,TOTAL 0.2 MG/DL (0.2-1.0); BLOOD UREA NITROGEN 8 MG/DL (7-18); CALCIUM LEVEL 8.6 MG/DL (8.5-10.1); CARBON DIOXIDE LEVEL 30 MEQ/L (21-32); CHLORIDE LEVEL 105 MEQ/L (98-107); CREATININE FOR GFR 0.69 MG/DL (0.55-1.30); GLOMERULAR FILTRATION RATE > 60.0 (>51); GLUCOSE, FASTING 133 MG/DL (70-100); MAGNESIUM LEVEL 1.8 MG/DL (1.8-2.4); POTASSIUM SERUM 3.7 MEQ/L (3.5-5.1); SODIUM LEVEL 141 MEQ/L (136-145); TOTAL PROTEIN 6.2 GM/DL (6.4-8.2)
[2018-01-16] MEDS: GABAPENTIN 300 MG CAP PO ×3 (07:37→21:18)
[2018-01-16] MEDS: clonazePAM 0.5 MG TAB PO ×2 (07:37→12:47)
[2018-01-16] MEDS: LORATADINE 10 MG TAB PO (07:37)
[2018-01-16] MEDS: MAGNESIUM GLUCONATE 500 MG TAB PO ×2 (07:37→21:17)
[2018-01-16] MEDS: OMEPRAZOLE 20 MG CAP PO ×2 (07:38→21:17)
[2018-01-16] MEDS: ATORVASTATIN 20 MG TAB PO (07:38)
[2018-01-16] MEDS: LISINOPRIL 10 MG TAB PO (07:38)
[2018-01-16] MEDS: PERCOCET 5MG/325MG TAB PO (07:38)
[2018-01-16] MEDS: HEPARIN SOD (PORCINE) 5000 UNITS/ML VIAL SC ×2 (07:39→21:18)
[2018-01-16] MEDS: MONTELUKAST 10 MG TAB PO (07:39)
[2018-01-16] MEDS: FERROUS SULFATE 325MG TAB PO (07:39)
[2018-01-16] MEDS: ASPIRIN 81 MG ENTERIC TAB PO (07:39)
[2018-01-16] MEDS: VARENICLINE 1 MG TABLET PO (07:46)
[2018-01-16] MEDS: HumaLOG INSULIN (NovoLOG) PER UNIT SC ×4 (08:15→21:19)
[2018-01-16] MEDS: LEVEMIR (INSULIN DETEMIR) 1 UNITS/0.01ML SC ×2 (08:17→21:19)
[2018-01-16 10:25] LABS: BEDSIDE GLUCOSE 311 MG/DL (70-105)
[2018-01-16 12:56] LABS: BEDSIDE GLUCOSE 193 MG/DL (70-105)
[2018-01-16] MEDS: ONDANSETRON 4 MG TAB (S0181) PO (13:55)
[2018-01-16 17:32] LABS: BEDSIDE GLUCOSE 188 MG/DL (70-105)
[2018-01-16] MEDS: KETOROLAC 30 MG/ML VIAL (J1885) IV (18:04)
[2018-01-16] MEDS: PANTOPRAZOLE 40MG TAB (PROTONIX) PO (18:08)
[2018-01-16 20:43] LABS: BEDSIDE GLUCOSE 255 MG/DL (70-105)
[2018-01-16] MEDS: RAMELTEON 8 MG TAB (ROZEREM) PO (21:00)
[2018-01-16] MEDS: DESVENLAFAXINE ER 50 MG TABLET (PRISTIQ) PO (21:00)
[2018-01-17] MEDS: KETOROLAC 30 MG/ML VIAL (J1885) IV ×3 (04:01→18:24)
[2018-01-17 05:09] LABS: HEMOGLOBIN 11.9 g/dl (12.0-15.5); MEAN CORPUSCULAR HEMOGLOBIN 31.7 pg (27.0-33.0); MEAN CORPUSCULAR HGB CONC 33.1 g/dl (32.0-36.5); PLATELET COUNT, AUTOMATED 229 10^3/uL (150-450); RED BLOOD COUNT 3.75 10^6/uL (4.00-5.40); RED CELL DISTRIBUTION WIDTH 13.6 % (11.5-14.5); WHITE BLOOD COUNT 7.5 10^3/uL (4.0-10.0)
[2018-01-17 05:36] LABS: ALBUMIN 2.5 GM/DL (3.2-5.2); ALBUMIN/GLOBULIN RATIO 0.74 (1.00-1.93); ALKALINE PHOSPHATASE 226 U/L (45-117); ALT/SGPT 301 U/L (12-78); ANION GAP 8 MEQ/L (8-16); AST/SGOT 103 U/L (7-37); BILIRUBIN,TOTAL 0.1 MG/DL (0.2-1.0); BLOOD UREA NITROGEN 9 MG/DL (7-18); CALCIUM LEVEL 8.8 MG/DL (8.5-10.1); CARBON DIOXIDE LEVEL 26 MEQ/L (21-32); CHLORIDE LEVEL 108 MEQ/L (98-107); CREATININE FOR GFR 0.65 MG/DL (0.55-1.30); GLOMERULAR FILTRATION RATE > 60.0 (>51); GLUCOSE, FASTING 37 MG/DL (70-100); MAGNESIUM LEVEL 1.8 MG/DL (1.8-2.4); POTASSIUM SERUM 3.7 MEQ/L (3.5-5.1); SODIUM LEVEL 142 MEQ/L (136-145); TOTAL PROTEIN 5.9 GM/DL (6.4-8.2)
[2018-01-17 06:26] LABS: BEDSIDE GLUCOSE 186 MG/DL (70-105)
[2018-01-17] MEDS: clonazePAM 0.5 MG TAB PO ×2 (08:51→17:57)
[2018-01-17] MEDS: LISINOPRIL 10 MG TAB PO (08:52)
[2018-01-17] MEDS: LEVEMIR (INSULIN DETEMIR) 1 UNITS/0.01ML SC ×2 (08:52→20:11)
[2018-01-17] MEDS: OMEPRAZOLE 20 MG CAP PO ×2 (08:53→20:12)
[2018-01-17] MEDS: MAGNESIUM GLUCONATE 500 MG TAB PO ×2 (08:53→20:12)
[2018-01-17] MEDS: LORATADINE 10 MG TAB PO (08:53)
[2018-01-17] MEDS: MONTELUKAST 10 MG TAB PO (08:53)
[2018-01-17] MEDS: ASPIRIN 81 MG ENTERIC TAB PO (08:54)
[2018-01-17] MEDS: FERROUS SULFATE 325MG TAB PO (08:54)
[2018-01-17] MEDS: GABAPENTIN 300 MG CAP PO ×3 (08:54→20:12)
[2018-01-17] MEDS: HEPARIN SOD (PORCINE) 5000 UNITS/ML VIAL SC ×2 (08:54→20:11)
[2018-01-17] MEDS: PANTOPRAZOLE 40MG TAB (PROTONIX) PO (08:54)
[2018-01-17] MEDS: ACETAMINOPHEN TAB 650MG DOSE (2X325MG) PO ×3 (09:29→20:13)
[2018-01-17 09:39] LABS: BEDSIDE GLUCOSE 147 MG/DL (70-105)
[2018-01-17] MEDS: HumaLOG INSULIN (NovoLOG) PER UNIT SC ×4 (09:41→20:13)
[2018-01-17] MEDS: LIDOCAINE 5% (LIDODERM) PATCH TD (11:59)
[2018-01-17 12:16] LABS: BEDSIDE GLUCOSE 223 MG/DL (70-105)
[2018-01-17 18:13] LABS: BEDSIDE GLUCOSE 313 MG/DL (70-105)
[2018-01-17] MEDS: RAMELTEON 8 MG TAB (ROZEREM) PO (20:12)
[2018-01-17] MEDS: DESVENLAFAXINE ER 50 MG TABLET (PRISTIQ) PO (20:13)
[2018-01-17] MEDS: **NOTE PATIENT COMMENT** MISC XX (20:14)
[2018-01-17 20:32] LABS: BEDSIDE GLUCOSE 133 MG/DL (70-105)
[2018-01-18] MEDS: KETOROLAC 30 MG/ML VIAL (J1885) IV ×4 (00:19→20:27)
[2018-01-18 04:59] LABS: HEMATOCRIT 34.4 % (36.0-47.0); HEMOGLOBIN 11.3 g/dl (12.0-15.5); MEAN CORPUSCULAR HEMOGLOBIN 31.3 pg (27.0-33.0); MEAN CORPUSCULAR HGB CONC 32.8 g/dl (32.0-36.5); MEAN CORPUSCULAR VOLUME 95.3 fl (80.0-96.0); PLATELET COUNT, AUTOMATED 237 10^3/uL (150-450); RED BLOOD COUNT 3.61 10^6/uL (4.00-5.40); RED CELL DISTRIBUTION WIDTH 13.5 % (11.5-14.5); WHITE BLOOD COUNT 6.9 10^3/uL (4.0-10.0)
[2018-01-18 05:09] LABS: INR 0.87; PROTHROMBIN TIME 11.9 SECONDS (12.1-14.4)
[2018-01-18 05:27] LABS: ALBUMIN 2.4 GM/DL (3.2-5.2); ALKALINE PHOSPHATASE 187 U/L (45-117); ALT/SGPT 198 U/L (12-78); ANION GAP 7 MEQ/L (8-16); AST/SGOT 46 U/L (7-37); BILIRUBIN,TOTAL 0.2 MG/DL (0.2-1.0); BLOOD UREA NITROGEN 10 MG/DL (7-18); CARBON DIOXIDE LEVEL 29 MEQ/L (21-32); CHLORIDE LEVEL 108 MEQ/L (98-107); CREATININE FOR GFR 0.69 MG/DL (0.55-1.30); GLOMERULAR FILTRATION RATE > 60.0 (>51); GLUCOSE, FASTING 59 MG/DL (70-100); POTASSIUM SERUM 4.2 MEQ/L (3.5-5.1); SODIUM LEVEL 144 MEQ/L (136-145); TOTAL PROTEIN 5.4 GM/DL (6.4-8.2)
[2018-01-18] MEDS: clonazePAM 0.5 MG TAB PO ×2 (05:27→20:28)
[2018-01-18] MEDS: ACETAMINOPHEN TAB 650MG DOSE (2X325MG) PO ×2 (05:53→13:38)
[2018-01-18 06:27] LABS: BEDSIDE GLUCOSE 198 MG/DL (70-105)
[2018-01-18] MEDS: HumaLOG INSULIN (NovoLOG) PER UNIT SC ×4 (08:43→21:28)
[2018-01-18] MEDS: FERROUS SULFATE 325MG TAB PO (08:44)
[2018-01-18] MEDS: LEVEMIR (INSULIN DETEMIR) 1 UNITS/0.01ML SC ×2 (08:44→21:28)
[2018-01-18] MEDS: HEPARIN SOD (PORCINE) 5000 UNITS/ML VIAL SC ×2 (08:44→21:27)
[2018-01-18] MEDS: PANTOPRAZOLE 40MG TAB (PROTONIX) PO (08:45)
[2018-01-18] MEDS: GABAPENTIN 300 MG CAP PO ×3 (08:45→21:27)
[2018-01-18] MEDS: ASPIRIN 81 MG ENTERIC TAB PO (08:45)
[2018-01-18] MEDS: OMEPRAZOLE 20 MG CAP PO ×2 (08:45→21:28)
[2018-01-18] MEDS: LORATADINE 10 MG TAB PO (08:45)
[2018-01-18] MEDS: LISINOPRIL 10 MG TAB PO (08:45)
[2018-01-18] MEDS: MAGNESIUM GLUCONATE 500 MG TAB PO ×2 (08:45→21:27)
[2018-01-18] MEDS: MONTELUKAST 10 MG TAB PO (08:46)
[2018-01-18] MEDS: LIDOCAINE 5% (LIDODERM) PATCH TD (08:46)
[2018-01-18 13:06] LABS: BEDSIDE GLUCOSE 322 MG/DL (70-105)
[2018-01-18 17:09] LABS: BEDSIDE GLUCOSE 124 MG/DL (70-105)
[2018-01-18 20:13] LABS: BEDSIDE GLUCOSE 282 MG/DL (70-105)
[2018-01-18] MEDS: **NOTE PATIENT COMMENT** MISC XX (21:00)
[2018-01-18] MEDS: RAMELTEON 8 MG TAB (ROZEREM) PO (21:27)
[2018-01-18] MEDS: DESVENLAFAXINE ER 50 MG TABLET (PRISTIQ) PO (21:28)
[2018-01-19] MEDS: ACETAMINOPHEN TAB 650MG DOSE (2X325MG) PO ×2 (00:27→08:15)
[2018-01-19] MEDS: KETOROLAC 30 MG/ML VIAL (J1885) IV (03:52)
[2018-01-19] MEDS ORDERED: SLF 3 ML SYR IV (05:00)
[2018-01-19] MEDS: SLF 3 ML SYR IV ×2 (05:12→14:12)
[2018-01-19 05:26] LABS: HEMATOCRIT 34.8 % (36.0-47.0); HEMOGLOBIN 11.4 g/dl (12.0-15.5); MEAN CORPUSCULAR HEMOGLOBIN 31.4 pg (27.0-33.0); MEAN CORPUSCULAR HGB CONC 32.8 g/dl (32.0-36.5); MEAN CORPUSCULAR VOLUME 95.9 fl (80.0-96.0); PLATELET COUNT, AUTOMATED 234 10^3/uL (150-450); RED BLOOD COUNT 3.63 10^6/uL (4.00-5.40); RED CELL DISTRIBUTION WIDTH 13.9 % (11.5-14.5); WHITE BLOOD COUNT 5.9 10^3/uL (4.0-10.0)
[2018-01-19 05:55] LABS: ALBUMIN 2.4 GM/DL (3.2-5.2); ALBUMIN/GLOBULIN RATIO 0.75 (1.00-1.93); ALKALINE PHOSPHATASE 175 U/L (45-117); ALT/SGPT 151 U/L (12-78); ANION GAP 6 MEQ/L (8-16); AST/SGOT 34 U/L (7-37); BILIRUBIN,TOTAL 0.1 MG/DL (0.2-1.0); BLOOD UREA NITROGEN 11 MG/DL (7-18); CALCIUM LEVEL 8.2 MG/DL (8.5-10.1); CARBON DIOXIDE LEVEL 28 MEQ/L (21-32); CHLORIDE LEVEL 107 MEQ/L (98-107); CREATININE FOR GFR 0.73 MG/DL (0.55-1.30); GLOMERULAR FILTRATION RATE > 60.0 (>51); GLUCOSE, FASTING 128 MG/DL (70-100); MAGNESIUM LEVEL 2.2 MG/DL (1.8-2.4); POTASSIUM SERUM 4.5 MEQ/L (3.5-5.1); SODIUM LEVEL 141 MEQ/L (136-145); TOTAL PROTEIN 5.6 GM/DL (6.4-8.2)
[2018-01-19] MEDS: HumaLOG INSULIN (NovoLOG) PER UNIT SC ×2 (08:10→14:11)
[2018-01-19] MEDS: LIDOCAINE 5% (LIDODERM) PATCH TD (08:10)
[2018-01-19] MEDS: MONTELUKAST 10 MG TAB PO (08:11)
[2018-01-19] MEDS: FERROUS SULFATE 325MG TAB PO (08:11)
[2018-01-19] MEDS: PANTOPRAZOLE 40MG TAB (PROTONIX) PO (08:11)
[2018-01-19] MEDS: OMEPRAZOLE 20 MG CAP PO (08:11)
[2018-01-19] MEDS: LEVEMIR (INSULIN DETEMIR) 1 UNITS/0.01ML SC (08:11)
[2018-01-19] MEDS: MAGNESIUM GLUCONATE 500 MG TAB PO (08:11)
[2018-01-19] MEDS: LORATADINE 10 MG TAB PO (08:11)
[2018-01-19] MEDS: ASPIRIN 81 MG ENTERIC TAB PO (08:12)
[2018-01-19] MEDS: GABAPENTIN 300 MG CAP PO (08:12)
[2018-01-19] MEDS: LISINOPRIL 10 MG TAB PO (08:12)
[2018-01-19] MEDS: HEPARIN SOD (PORCINE) 5000 UNITS/ML VIAL SC (08:15)
[2018-01-19] MEDS: clonazePAM 0.5 MG TAB PO (09:19)
[2018-01-19] MEDS: LORazepam 2 MG/ML VIAL (J2060) IV (11:29)
== END 2018-01-19 16:30 | disposition home or self-care (01) | DRG 948 ==
LOC: M ED INP 01-13 01:19 → M PCU 01-18 08:17 → M MS4PR 01-13 04:04 → M ED 18:52 → M ICU 01-13 10:58
PROVIDERS: Internal Medicine Nephrology
DX: R74.0 Nonspecific elevation of levels of transaminase and lactic acid dehydrogenase [LDH] (principal); K90.41 Non-celiac gluten sensitivity; E87.1 Hypo-osmolality and hyponatremia; E10.43 Type 1 diabetes mellitus with diabetic autonomic (poly)neuropathy; I10 Essential (primary) hypertension; G47.33 Obstructive sleep apnea (adult) (pediatric); D50.9 Iron deficiency anemia, unspecified; J45.909 Unspecified asthma, uncomplicated; Z79.4 Long term (current) use of insulin; F17.200 Nicotine dependence, unspecified, uncomplicated; Z79.82 Long term (current) use of aspirin; Z79.899 Other long term (current) drug therapy; K90.0 Celiac disease; F41.9 Anxiety disorder, unspecified; F32.9 Major depressive disorder, single episode, unspecified; K21.9 Gastro-esophageal reflux disease without esophagitis; K44.9 Diaphragmatic hernia without obstruction or gangrene; Z86.73 Personal history of transient ischemic attack (TIA), and cerebral infarction without residual deficits; E10.65 Type 1 diabetes mellitus with hyperglycemia; E78.5 Hyperlipidemia, unspecified; G43.909 Migraine, unspecified, not intractable, without status migrainosus; Z91.5 Personal history of self-harm; E83.42 Hypomagnesemia

== ENCOUNTER → 2018-01-27 | Outpatient (REF) | payer MEDICARE, MEDICAID ==
[~2018-01-27] MED LIST changes: +ACET500T15 PO; -ACET50TAOT PO; +AMIT75TA PO; +ASPI81TAEC PO; +BARI1CHW PO; +CHAN1PAK13 PO; -CHAN1PAK9 PO; -CLON0.5T PO; +CLON0.5T8 PO; +COLA100C5 PO; -GABA-282 PO; +GABA-843 PO; -GABA600T PO; +GABA600T4 PO; +INSUDET SC; +LIDO5OIN28 TOP; +LORA-243 PO; +PRIS50TA PO; -PROP1TAB29 PO; +PROP20TA PO; +PROP20TA72 PO; +ROZE8TAB16 PO; -SENN8.6T8 PO; +SENN8.6T9 PO; +SYST1SOL OU; -TRAZ-136 PO; +TRAZ-163 PO; +TRUL0.5I SC; +VENL75TA2 PO; +VENTAER INH; -ZOFR20TA PO; +ZOFR4TAB16 PO
[2018-01-27 16:25] LABS: BASO # 0.2 10^3/uL (0.0-0.2); BASO % 1.8 % (0.0-1.0); EOS # 0.3 10^3/uL (0.0-0.50); EOS % 2.9 % (0.0-3.0); HEMATOCRIT 44.7 % (36.0-47.0); HEMOGLOBIN 14.5 g/dl (12.0-15.5); LYMPH # 3.1 10^3/uL (1.5-4.5); LYMPH % 33.4 % (24.0-44.0); MEAN CORPUSCULAR HEMOGLOBIN 31.2 pg (27.0-33.0); MEAN CORPUSCULAR HGB CONC 32.4 g/dl (32.0-36.5); MEAN CORPUSCULAR VOLUME 96.1 fl (80.0-96.0); MONO # 0.4 10^3/uL (0.0-0.8); MONO % 4.5 % (0.0-5.0); NEUTROPHILS # 5.2 10^3/uL (1.8-7.7); NEUTROPHILS % 57.2 % (36.0-66.0); PLATELET COUNT, AUTOMATED 403 10^3/uL (150-450); RED BLOOD COUNT 4.65 10^6/uL (4.00-5.40); WHITE BLOOD COUNT 9.1 10^3/uL (4.0-10.0)
[2018-01-27 16:40] LABS: ALBUMIN 3.9 GM/DL (3.2-5.2); ALT/SGPT 73 U/L (12-78); BILIRUBIN,TOTAL 0.3 MG/DL (0.2-1.0); BLOOD UREA NITROGEN 14 MG/DL (7-18); CALCIUM LEVEL 9.6 MG/DL (8.5-10.1); CARBON DIOXIDE LEVEL 28 MEQ/L (21-32); CHLORIDE LEVEL 104 MEQ/L (98-107); CREATININE FOR GFR 0.92 MG/DL (0.55-1.30); GLOMERULAR FILTRATION RATE > 60.0 (>51); GLUCOSE, FASTING 179 MG/DL (70-100); POTASSIUM SERUM 4.2 MEQ/L (3.5-5.1); SODIUM LEVEL 139 MEQ/L (136-145); TOTAL PROTEIN 7.3 GM/DL (6.4-8.2)
== END ==
LOC: M SFHCPLAZ 14:17
PROVIDERS: ATTEND Physician Assistant Medical
DX: R74.0 Nonspecific elevation of levels of transaminase and lactic acid dehydrogenase [LDH] (principal); K31.84 Gastroparesis
CPT/HCPCS: 36415; 80053; 85025; G0463

== ENCOUNTER → 2018-02-23 | Outpatient (REF) | payer MEDICARE, MEDICAID ==
[2018-02-23 12:40] LABS: BASO # 0.1 10^3/uL (0.0-0.2); BASO % 1.2 % (0.0-1.0); EOS # 0.5 10^3/uL (0.0-0.50); EOS % 6.5 % (0.0-3.0); HEMATOCRIT 41.9 % (36.0-47.0); HEMOGLOBIN 13.7 g/dl (12.0-15.5); LYMPH # 2.8 10^3/uL (1.5-4.5); LYMPH % 39.1 % (24.0-44.0); MEAN CORPUSCULAR HEMOGLOBIN 31.2 pg (27.0-33.0); MEAN CORPUSCULAR HGB CONC 32.7 g/dl (32.0-36.5); MEAN CORPUSCULAR VOLUME 95.4 fl (80.0-96.0); MONO # 0.4 10^3/uL (0.0-0.8); MONO % 5.1 % (0.0-5.0); NEUTROPHILS # 3.5 10^3/uL (1.8-7.7); NEUTROPHILS % 47.8 % (36.0-66.0); PLATELET COUNT, AUTOMATED 262 10^3/uL (150-450); RED BLOOD COUNT 4.39 10^6/uL (4.00-5.40); WHITE BLOOD COUNT 7.2 10^3/uL (4.0-10.0)
[2018-02-23 12:54] LABS: ALBUMIN 3.4 GM/DL (3.2-5.2); ALT/SGPT 116 U/L (12-78); AMYLASE 44 U/L (25-115); BILIRUBIN,TOTAL 0.2 MG/DL (0.2-1.0); BLOOD UREA NITROGEN 15 MG/DL (7-18); CARBON DIOXIDE LEVEL 28 MEQ/L (21-32); CHLORIDE LEVEL 102 MEQ/L (98-107); CREATININE FOR GFR 0.75 MG/DL (0.55-1.30); FERRITIN 88 NG/ML (8-252); GLOMERULAR FILTRATION RATE > 60.0 (>51); GLUCOSE, FASTING 107 MG/DL (70-100); IRON (FE) 70 UG/DL (50-170); LIPASE 84 U/L (73-393); PERCENT SATURATION 22.6 % (13.2-45.0); POTASSIUM SERUM 4.4 MEQ/L (3.5-5.1); SODIUM LEVEL 140 MEQ/L (136-145); TOTAL IRON BINDING CAPACITY 310 UG/DL (250-450); TOTAL PROTEIN 6.6 GM/DL (6.4-8.2)
== END ==
LOC: M SFHCPLAZ 10:14
PROVIDERS: ATTEND Physician Assistant Medical
DX: R74.0 Nonspecific elevation of levels of transaminase and lactic acid dehydrogenase [LDH] (principal); D50.9 Iron deficiency anemia, unspecified; E11.8 Type 2 diabetes mellitus with unspecified complications
CPT/HCPCS: 36415; 80053; 82150; 82728; 83036; 83550; 83690; 85025; G0463

== ENCOUNTER → 2018-03-03 | Outpatient (CLI) | payer MEDICARE, MEDICAID ==
[2018-03-03 11:59] LABS: INR 0.97; PARTIAL THROMBOPLASTIN TIME 24.4 SECONDS (25.4-37.6)
== END ==
LOC: M LAB 11:19
PROVIDERS: ATTEND Internal Medicine Gastroenterology
DX: R94.5 Abnormal results of liver function studies (principal); Z51.81 Encounter for therapeutic drug level monitoring; Z79.01 Long term (current) use of anticoagulants; R19.7 Diarrhea, unspecified

== ENCOUNTER → 2018-03-03 | Outpatient (REF) | payer MEDICARE, MEDICAID | LOC: M LAB REF 11:12 | PROVIDERS: ATTEND Internal Medicine Gastroenterology | DX: R19.7 Diarrhea, unspecified (principal) ==

== ENCOUNTER → 2018-03-10 | Outpatient (CLI) | payer MEDICARE, MEDICAID ==
[~2018-03-10] MED LIST changes: +LIDOCAINE 1% MDV 20ML VIAL As Ordered ONE
--- NOTE | 2018-03-10 13:54 | REP ---
ULTRASOUND-GUIDED LIVER BIOPSY The procedure was performed under the direct supervision of Dr. manuel. The risks and benefits of the procedure were explained to the patient and informed consent was obtained. The left lobe of the liver was localized using ultrasound guidance. The skin was prepped and draped in a sterile fashion. 1% lidocaine was used as a local anesthetic. Using ultrasound guidance a 19/20 gauge coaxial needle biopsy system was inserted and advanced into the liver. Five core biopsy samples were obtained and sent to lab. The patient tolerated the procedure well and there were no immediate complications. After the appropriate amount of monitored convalescence the patient was discharged from the department. Reviewed by SARAH Clemens 03/10/2018 01:02 P Electronically Signed by Ahsan Manuel MD 03/10/2018 01:45 P
== END ==
LOC: M RADPRO 11:04
PROVIDERS: ATTEND Internal Medicine Gastroenterology
DX: D13.4 Benign neoplasm of liver (principal)

== ENCOUNTER → 2018-04-07 | Outpatient (CLI) | payer MEDICARE ==
[~2018-04-07] MED LIST changes: -LIDOCAINE 1% MDV 20ML VIAL As Ordered ONE
== END ==
LOC: M LAB 09:42
PROVIDERS: ATTEND Internal Medicine Gastroenterology
DX: R94.5 Abnormal results of liver function studies (principal); R19.7 Diarrhea, unspecified

== ENCOUNTER → 2018-04-13 | Outpatient (REF) | payer MEDICARE, MEDICAID ==
[2018-04-13 14:22] LABS: ALBUMIN 3.7 GM/DL (3.2-5.2); ALT/SGPT 98 U/L (12-78); BILIRUBIN,DIRECT < 0.1 MG/DL (0.0-0.2); BILIRUBIN,TOTAL 0.2 MG/DL (0.2-1.0); IRON (FE) 64 UG/DL (50-170); PREALBUMIN 29.7 MG/DL (20.0-40.0); TOTAL IRON BINDING CAPACITY 336 UG/DL (250-450)
== END ==
LOC: M SFHCPLAZ 10:44
PROVIDERS: ATTEND Family Medicine
DX: R74.0 Nonspecific elevation of levels of transaminase and lactic acid dehydrogenase [LDH] (principal); D50.9 Iron deficiency anemia, unspecified; E88.09 Other disorders of plasma-protein metabolism, not elsewhere classified
CPT/HCPCS: 36415; 80076; 83550; 84134; 86255; G0463

== ENCOUNTER 2018-06-08 08:14 | Inpatient (IN) | payer MEDICARE, MEDICAID ==
[~2018-06-08] VITALS: Ht 162.6 cm; Wt 72.4 kg
[2018-06-08] VITALS (22 sets, daily range): BP systolic 70–105; BP diastolic 40–60
[~2018-06-08 08:14] MED LIST changes: -/ATOR40TA; -/ATOR40TA PO; -/DULO30CA OR; -/INSUREG SC; -/MOXI40TA PO; -/ONDA4TA OR; -/ONDA4TA PO; -AMMO12CR4 TOP; +AMMO12CR7 TOP; -ASPI1TAB PO; +ASPI81TA26 PO; +AVEL1TAB2 PO; +CYMB1CAP5 OR; +HYDR-3715 PO; -LIDO5OI TOP; +LIPI1TAB2; +LIPI1TAB2 PO; -NORCOTAB PO; +NOVO1INJ2 SC; +ONDA-1 OR; +ONDA-1 PO; -PERCOCET PO; +SENN1TAB36 PO; -SENN8.6T9 PO; +SERT-141 PO; -SERT50TA PO; -VICO5TAB16 PO; +VICO5TAB17 PO
[2018-06-08 08:53] LABS: VENOUS BASE EXCESS -4.7 (-2.0-2.0); VENOUS O2 SATURATION 99.3 % (60.0-80.0); VENOUS PARTIAL PRESSURE CO2 35.8 mmHg (38.0-50.0); VENOUS PARTIAL PRESSURE O2 207.2 mmHg (30.0-50.0); VENOUS PH 7.364 UNITS (7.330-7.430); VENOUS STANDARD HCO3 20.7 MEQ/L; VENOUS TOTAL CO2 21.1 MEQ/L (24.0-28.0)
[2018-06-08] MEDS: NS 1,000 ML IV SCH ×2 (08:57→15:10)
[2018-06-08 08:58] LABS: BASO # 0.1 10^3/uL (0.0-0.2); EOS # 0.3 10^3/uL (0.0-0.50); EOS % 4.3 % (0.0-3.0); HEMATOCRIT 40.2 % (36.0-47.0); HEMOGLOBIN 13.5 g/dl (12.0-15.5); LYMPH # 1.4 10^3/uL (1.5-4.5); LYMPH % 20.7 % (24.0-44.0); MEAN CORPUSCULAR HEMOGLOBIN 31.9 pg (27.0-33.0); MEAN CORPUSCULAR HGB CONC 33.6 g/dl (32.0-36.5); MONO # 0.4 10^3/uL (0.0-0.8); MONO % 6.3 % (0.0-5.0); NEUTROPHILS # 4.6 10^3/uL (1.8-7.7); NEUTROPHILS % 66.3 % (36.0-66.0); PLATELET COUNT, AUTOMATED 250 10^3/uL (150-450); RED BLOOD COUNT 4.23 10^6/uL (4.00-5.40); WHITE BLOOD COUNT 6.9 10^3/uL (4.0-10.0)
[2018-06-08] MEDS ORDERED: TRAZ-160 PO (09:06)
[2018-06-08] MEDS ORDERED: PANT40TA3 PO (09:06)
[2018-06-08] MEDS ORDERED: SUCR1TAB56 PO (09:06)
[2018-06-08] MEDS ORDERED: SUMA6KIT SC (09:10)
--- NOTE | 2018-06-08 09:13 | REP ---
Chest one-view HISTORY: Fever Comparison: 10/23/2016 The lungs are clear. The heart is normal in size. The pulmonary vasculature is normal in appearance. Impression: No acute disease. Electronically Signed by Grant Grajeda MD 06/08/2018 09:05 A
[2018-06-08] MEDS ORDERED: ONDANSETRON 4MG/2ML VIAL (J2405) IV ONE (09:15)
[2018-06-08] MEDS ORDERED: MORPHINE 4 MG/ML 1ML VIAL/SYRINGE (J2270) IV ONE (09:15)
[2018-06-08 10:52] LABS: ACETONE/KETONE 27.24 MG/DL (<2.81); ALBUMIN 3.3 GM/DL (3.2-5.2); BILIRUBIN,DIRECT 0.2 MG/DL (0.0-0.2); BILIRUBIN,TOTAL 0.6 MG/DL (0.2-1.0); CALCIUM LEVEL 8.3 MG/DL (8.5-10.1); CREATININE FOR GFR 1.06 MG/DL (0.55-1.30); GLOMERULAR FILTRATION RATE 57.5 (>51); MAGNESIUM LEVEL 2.2 MG/DL (1.8-2.4); PHOSPHORUS LEVEL 4.5 MG/DL (2.5-4.9); POTASSIUM SERUM 4.8 MEQ/L (3.5-5.1); TOTAL PROTEIN 6.7 GM/DL (6.4-8.2)
[2018-06-08] MEDS ORDERED: HumuLIN R (REGULAR) INSULIN (NovoLIN R) **100U/ML** PER UNIT IV ONE ×2 (11:00→13:15)
[2018-06-08] MEDS: GASTROGRAFIN SOLUTION 30ML PO SCH ×2 (12:31→13:01)
[2018-06-08] MEDS ORDERED: ISOVUE-370 76% 100ML VIAL (Q9967) As Ordered ONE (12:36)
[2018-06-08] MEDS ORDERED: CLON1TAB8 PO (15:30)
[2018-06-08] MEDS ORDERED: B COTAB3 PO (15:37)
[2018-06-08] MEDS ORDERED: INSUDET SC ×2 (15:37)
[2018-06-08] MEDS ORDERED: OMEP40CA2 PO (15:37)
[2018-06-08] MEDS ORDERED: MIRA3350 PO (15:37)
[2018-06-08] MEDS ORDERED: ROZE8TAB16 PO (15:37)
[2018-06-08] MEDS ORDERED: LIDO5OIN19 TOP (15:37)
[2018-06-08] MEDS ORDERED: BARIATRIC FUSION PO (15:37)
[2018-06-08] MEDS ORDERED: VARE1TA PO (15:41)
[2018-06-08] MEDS ORDERED: PREG50CA PO (15:41)
[2018-06-08] MEDS ORDERED: BOTO200I INJ (15:41)
[2018-06-08] MEDS ORDERED: TIZA4TAB4 PO (15:41)
[2018-06-08] MEDS ORDERED: PROP20TA72 PO (15:41)
[2018-06-08] MEDS ORDERED: ATOR1TAB21 PO (15:41)
[2018-06-08] MEDS ORDERED: DRIS50003 PO (15:41)
[2018-06-08] MEDS ORDERED: HYDR-3363 PO (15:41)
[2018-06-08] MEDS ORDERED: OXYC1TAB23 PO (15:41)
[2018-06-08] MEDS ORDERED: CVS1CHW13 PO (15:41)
[2018-06-08] MEDS ORDERED: INSULIN HUMAN REGULAR 100 UNITS in NS 99 ML IV SCH (15:54)
[2018-06-08] MEDS ORDERED: NS 150 ML IV ONE (16:00)
[2018-06-08] MEDS ORDERED: LORazepam 2 MG/ML VIAL (J2060) IV ONE (16:00)
--- NOTE | 2018-06-08 16:29 | HPE ---
DATE OF ADMISSION: 06/08/2018 ATTENDING PHYSICIAN: Hospitalist group PRIMARY CARE PHYSICIAN: Dr. Reji Fenton CHIEF COMPLAINT: Hyperglycemia, diabetic ketoacidosis (DKA), abnormal liver function tests. HISTORY: Alia Sierra is a 52-year-old type 1 diabetic. She looks to be in DKA. She presented with elevated blood sugar in 600 range. She has positive ketones. Not sure if she is acidotic, as she has not had an arterial blood gas done, just a venous blood gas. She has abnormal liver function tests with an elevated AST and ALT of 339/218, respectively, but a normal bilirubin. She had a CT of the abdomen and pelvis. Report is pending, but verbally there is a mildly dilated common bile duct. After discussion with gastroenterology in the emergency room, has an magnetic resonance cholangiopancreatography (MRCP) ordered, though her pattern does not suggest a biliary obstruction. She has a history of type 1 diabetes. She has been admitted for diabetic problems in the past. Was admitted January 2018 for elevated liver function tests in the context of severe hyperglycemia. At that time, her blood sugar was 933. She had a workup that had a negative hepatobiliary iminodiacetic acid (HIDA) scan with a patent common bile duct, negative hepatitis viral screening, negative HIV, negative mononucleosis, and an MRCP that showed mild diltation of the intrahepatic biliary duct and common bile duct, similar to appearance from previous MRI. Normal finding after cholecystectomy (I suspect she has the same thing going on now). She had negative immunologic workup for other causes of hepatitis as well, and her liver functions at that time improved with correction of her out of control diabetes. She had an echocardiogram that admission that was normal. PAST MEDICAL HISTORY: 1. Type 1 diabetes. 2. Obstructive sleep apnea (JERAD), on continuous positive airway pressure (CPAP). 3. Hypertensive heart disease. 4. Depression/anxiety. 5. Hyperlipidemia. 6. Celiac disease, for which she sees Dr. Spears, a assistant director of plant operations in [place]. 7. History of hiatal hernia status post Gretchen fundoplication. 8. History of migraine headaches. 9. History of transient ischemic attacks (TIA). 10. Asthma. She had a normal echocardiogram done during January 2018 admission. 11. She was admitted for diabetic ketoacidosis May 2016. PAST SURGICAL HISTORY: 1. Cholecystectomy. 2. section times two. 3. Appendectomy. 4. Hysterectomy. 5. Gretchen fundoplication. 6. Gastric sleeve surgery. 7. Colonoscopy 2012. 8. Open reduction, internal fixation, tibia-fibula fracture in 2016. FAMILY HISTORY: Father at 59 of possible myocardial infarction ([place]). Mother has benign brain tumor, asthma, anemia, hypertension, hypothyroidism. Two sister with asthma and depression. SOCIAL HISTORY: She smokes. No alcohol use. Walks for exercise. Gluten-free diet. ALLERGIES: Gluten, PREDNISONE, which caused her to go into DKA in the past, adhesive tape. MEDICATIONS: In her chart, her medications are: - Protonix 40 mg twice a day - Carafate 1 gram twice a day - ferrous sulfate 325 mg daily - trazodone 50 mg at bedtime - Levemir 18 units twice daily - sliding scale of insulin based on fingerstick blood sugars - propranolol 20 mg every 8 hours - Pristiq 50 mg daily - Trulicity 1.5 mg weekly - Lidoderm patch to low back - sumatriptan injection subcutaneous as needed for migraines - Singular 10 mg at bedtime - Lac-Hydrin 12% cream for dry skin - albuterol nebulized solution four times a day as needed - Drisdol 50,000 units weekly - loratadine 10 mg daily - atorvastatin 20 mg in the evening - lisinopril 10 mg daily - gabapentin 800 mg three times a day - glucagon kit as needed - Reglan 10 mg before meals and at bedtime - aspirin 81 mg daily - Zofran as needed - hydroxyzine 25 mg before bedtime - clonazepam 1 mg three times a day Apparently, Dr. Bejarano also prescribed Percocet. It is not on his office medication list, but a telephone conversation from 06/04/2018 indicates that pharmacy had called that patient was given both clonazepam from primary care provider and Percocet from Dr. Lerma. REVIEW OF SYSTEMS: Right upper quadrant pain. She thinks her urine has remained normal in color. Stool is a little fuel quality tech, but not chalky. No fevers or chills. She has thirst and fatigue. Blood sugar was elevated. PHYSICAL EXAMINATION: VITAL SIGNS: 95/53, pulse 76, respirations 18, 96% oxygen saturation on room air. GENERAL APPEARANCE: She looks well rested, comfortable. She is not jaundiced. Pupils equal, round, reactive to light. Tympanic membranes (TMs) normal. Pharynx showed dry mucous membranes. NECK: Supple. LUNGS: Clear. HEART: Without murmur. ABDOMEN: Soft. Tender right upper quadrant. No guarding, rebound, or referred pain. EXTREMITIES: No clubbing, cyanosis, or edema. Normal strength in the arms and legs. Good distal pulses. LABORATORY DATA: White count 6.9, hemoglobin 13.5, platelets 250. Sodium 131 (corrects to normal for hyperglycemia), potassium 4.8, BUN 22, creatinine 1.0, glucose 630. AST 339, ALT 218, alkaline phosphatase 140, bilirubin normal at 0.6, albumin normal. She has not had an arterial blood gas (ABG) done. She had a venous blood gas done, for whatever that is worth. Urinalysis shows 3+ glucose, 1+ ketones. Serum ketones were elevated. Beta-hydroxybutyrate at 7.2. IMPRESSION: 1. Diabetic ketoacidosis (DKA). Patient will be admitted an intensive care unit (ICU) bed and started on an insulin drip per DKA protocol, every hour fingersticks, every 4-hour basic metabolic panels (BMPs). Patient will be admitted to the hospitalist service and signed out to the night hospitalist later this evening to followup on lab testing. Ketones were ordered again for the morning. Daily labs have been ordered. Stress ulcer prophylaxis with intravenous (IV) Protonix ordered. Deep vein thrombosis (DVT) prophylaxis with Lovenox has been ordered. 2. Have liver function tests. I doubt she has a biliary obstruction. Her common bile duct has been dilated since her cholecystectomy. Her bilirubin is normal and alkaline phosphatase essentially normal. View of her past history shows her liver functions tend to always bump when she is in DKA. I think she already on her way to the MRCP, but I think it unlikely she has a biliary obstruction. I would not cover with antibiotic for this, unless MRCP shows something more suggestive. 3. History of depression. Continue her antidepressant with Pristiq. Avoid serotonin and norepinephrine reuptake inhibitors (SNRI) withdrawal. We are going to continue trazodone 50 mg before bedtime. 4. History of upper gastrointestinal (GI) bleeding in the past. Continue Protonix. I have ordered IV for stress ulcer prophylaxis. Continue Carafate. 5. History of asthma. Continue Singulair 10 mg daily and nebulized bronchodilator. 6. Hyperlipidemia. Continue atorvastatin 20 mg daily. 7. History of hypertension. Hold her antihypertensives. Blood pressure is only 90 systolic. We will hydrate her. She will probably need to have these restarted once she is back to normal volume status. 8. History of diabetic neuropathy. Continue gabapentin 800 mg three times a day. 9. Anxiety/depression. She is on Klonopin, which we will continue to avoid withdrawal symptoms. Mental status is normal, so I think it is okay to continue this. 10. History of celiac disease. Continue a gluten-free diet. 11. History of transient ischemic attacks (TIA). Hold her aspirin until her DKA has abated, then restart aspirin for thromboembolic prophylaxis. 12. History of obstructive sleep apnea (JERAD). Continue continuous positive airway pressure (CPAP). She may use her home CPAP for this. Patient will be on the hospitalist service.
--- NOTE | 2018-06-08 17:31 | REP ---
CT ABDOMEN AND PELVIS WITH ORAL AND IV CONTRAST: TECHNIQUE: Axial contrast enhanced images from the lung bases to the pubic symphysis using 100 mL Isovue 370 intravenous contrast material with multiplanar reformations. COMPARISON: 03/29/2016 and 04/02/2016. Visualized lung bases demonstrate no acute infiltrate. The liver demonstrates no mass. There is mild intrahepatic biliary dilatation. There is dilatation of the common bile duct up to 15 to 16 mm, status-post cholecystectomy. There is no pancreatic duct dilatation. The spleen, adrenals, pancreas, and kidneys are unremarkable. There is no abdominal aortic aneurysm. There is no adenopathy. There is no free air or free fluid. There is no bowel wall thickening. There is no definite bowel obstruction. Urinary bladder is unremarkable. The patient has had a hysterectomy. No pelvic mass is seen. IMPRESSION:Status-post cholecystectomy. Mild intrahepatic biliary dilatation. Common bile duct is mildly dilated at 15-16 mm. No definite intraluminal abnormality of the common bile duct. No other acute abnormalities. Electronically Signed by Ahsan Manuel MD 06/10/2018 09:25 A
[2018-06-08] MEDS: PERCOCET 5MG/325MG TAB PO PRN (18:21)
[2018-06-08 18:50] LABS: BLOOD UREA NITROGEN 18 MG/DL (7-18); CALCIUM LEVEL 8.4 MG/DL (8.5-10.1); CARBON DIOXIDE LEVEL 21 MEQ/L (21-32); CHLORIDE LEVEL 101 MEQ/L (98-107); CREATININE FOR GFR 0.95 MG/DL (0.55-1.30); GLOMERULAR FILTRATION RATE > 60.0 (>51); GLUCOSE, FASTING 410 MG/DL (70-100); POTASSIUM SERUM 4.2 MEQ/L (3.5-5.1); SODIUM LEVEL 135 MEQ/L (136-145)
[2018-06-08] MEDS: INSULIN IV RATE CHANGE DOCUMENTATION ML/HR XX SCH ×2 (19:08→19:57)
[2018-06-08 20:13] LABS: HEMOGLOBIN A1c 8.5 %
[2018-06-08] MEDS: hydrOXYzine 25 MG TAB PO SCH (21:04)
[2018-06-08] MEDS: MONTELUKAST 10 MG TAB PO SCH (21:04)
[2018-06-08] MEDS: PREGABALIN 50 MG CAP (LYRICA) PO SCH (21:04)
[2018-06-08] MEDS: SUCRALFATE 1 GM TAB PO SCH (21:05)
[2018-06-08] MEDS: METOCLOPRAMIDE 10 MG TAB PO SCH (21:05)
[2018-06-08] MEDS: traZODone 50 MG TAB PO PRN (21:08)
[2018-06-08] MEDS: ENOXAPARIN 40 MG/0.4 ML SYRINGE (J1650) SC SCH (21:09)
[2018-06-08] MEDS: clonazePAM 1 MG TAB PO SCH (21:09)
[2018-06-08] MEDS: PANTOPRAZOLE 40MG INJ (PROTONIX) (C9113) IV SCH (21:10)
[2018-06-08] MEDS ORDERED: LEVEMIR (INSULIN DETEMIR) 1 UNITS/0.01ML SC ONE (22:00)
[2018-06-08] MEDS: DESVENLAFAXINE ER 50 MG TABLET (PRISTIQ) PO SCH (22:27)
[2018-06-08] MEDS: KCL 20MEQ IN 0.45NS 1000ML 1,000 ML IV SCH (22:27)
[2018-06-08] MEDS ORDERED: NS 500 ML IV ONE (22:30)
[2018-06-08] MEDS ORDERED: NS 1,000 ML IV ONE (23:15)
[2018-06-08] MEDS ORDERED: GLUCOSE 4 GM CHEW TABLET PO PRN (23:30)
[2018-06-08] MEDS ORDERED: GLUCAGON FOR INJ 1 MG VIAL (J1610) SC PRN (23:30)
[2018-06-08] MEDS ORDERED: DEXTROSE 50% 50 ML SYRINGE IV PRN (23:30)
[2018-06-09] VITALS (41 sets, daily range): BP systolic 72–135; BP diastolic 40–73
[2018-06-09] MEDS ORDERED: NS 1,000 ML IV ONE (00:30)
[2018-06-09 01:17] LABS: BLOOD UREA NITROGEN 19 MG/DL (7-18); CALCIUM LEVEL 7.4 MG/DL (8.5-10.1); CARBON DIOXIDE LEVEL 23 MEQ/L (21-32); CHLORIDE LEVEL 112 MEQ/L (98-107); CREATININE FOR GFR 0.84 MG/DL (0.55-1.30); GLOMERULAR FILTRATION RATE > 60.0 (>51); GLUCOSE, FASTING 121 MG/DL (70-100); POTASSIUM SERUM 4.3 MEQ/L (3.5-5.1); SODIUM LEVEL 141 MEQ/L (136-145)
[2018-06-09] MEDS: KCL 20MEQ IN 0.45NS 1000ML 1,000 ML IV SCH (05:39)
[2018-06-09 05:41] LABS: MEAN CORPUSCULAR HEMOGLOBIN 31.5 pg (27.0-33.0); MEAN CORPUSCULAR VOLUME 95.4 fl (80.0-96.0); PLATELET COUNT, AUTOMATED 197 10^3/uL (150-450); RED BLOOD COUNT 3.46 10^6/uL (4.00-5.40); WHITE BLOOD COUNT 6.5 10^3/uL (4.0-10.0)
[2018-06-09 05:47] LABS: HEMOGLOBIN 10.9 g/dl (12.0-15.5)
[2018-06-09 06:09] LABS: ALBUMIN 2.4 GM/DL (3.2-5.2); ALT/SGPT 308 U/L (12-78); BILIRUBIN,DIRECT < 0.1 MG/DL (0.0-0.2); BILIRUBIN,TOTAL 0.4 MG/DL (0.2-1.0); BLOOD UREA NITROGEN 15 MG/DL (7-18); CALCIUM LEVEL 7.3 MG/DL (8.5-10.1); CARBON DIOXIDE LEVEL 24 MEQ/L (21-32); CHLORIDE LEVEL 113 MEQ/L (98-107); CREATININE FOR GFR 0.81 MG/DL (0.55-1.30); GLOMERULAR FILTRATION RATE > 60.0 (>51); GLUCOSE, FASTING 146 MG/DL (70-100); POTASSIUM SERUM 4.1 MEQ/L (3.5-5.1); SODIUM LEVEL 141 MEQ/L (136-145); TOTAL PROTEIN 5.3 GM/DL (6.4-8.2)
--- NOTE | 2018-06-09 07:19 | REP ---
REASON FOR THE MRCP: Pain and elevated LFTs. Possible choledocholithiasis. COMPARISON: 01/13/2018 which showed intrahepatic ductal dilatation and dilatation of the common bile duct felt to be unchanged from 06/12/2015. The patient is status post cholecystectomy. There is motion artifact decreasing the edge detection on all images. The maximal transverse dimension of the common bile duct is 1.2 cm, previously 1 cm. The intrahepatic ducts appear dilatated as well but in a fashion essentially unchanged from the prior exam. No definite focal filling defects are identifiable in the common bile duct or common hepatic ducts. Again, the common bile duct abruptly terminated rather than smoothly narrowing the level of the ampulla of Vater. This appearance is also unchanged. There is some magnetic susceptibility artifact seen in the gallbladder fossa from previous cholecystectomy status quo. IMPRESSION: Common bile duct, common hepatic duct and biliary radical ductal dilatation as described above without karon evidence of choledocholithiasis. Since there has been little change since 06/12/2015, it is doubtful that the findings secondary to neoplasm, cannot completely be excluded. The exam needs to be correlated clinically with appropriate followup. Consider conventional ERCP with GI consult. Electronically Signed by Klever Carrasco DO 06/09/2018 04:29 P
[2018-06-09] MEDS: METOCLOPRAMIDE 10 MG TAB PO SCH ×4 (08:13→20:33)
[2018-06-09] MEDS: HumaLOG INSULIN (NovoLOG) PER UNIT SC SCH ×4 (08:13→20:34)
--- NOTE | 2018-06-09 08:19 | IPNPDOC ---
Date Seen The patient was seen on 06/09/18. Progress Note SUBJECTIVE: Pt still c/o ruq abd pain sharp at times, achy and present all the time. no nausea vomiting fever or chills. mrcp cbd dilated, but normal bili. no overt jaundice GI consulted, Dr. Subramanian. ag closed, insulin iv gtt discontinued, ate dinner last night without abd pain, nausea or vomiting GENERAL APPEARANCE: She looks well rested, comfortable. She is not jaundiced. Pupils equal, round, reactive to light. Tympanic membranes (TMs) normal. Pharynx showed dry mucous membranes. NECK: Supple. LUNGS: Clear. HEART: Without murmur. ABDOMEN: Soft. Tender right upper quadrant. No guarding, rebound, or referred pain. EXTREMITIES: No clubbing, cyanosis, or edema. Normal strength in the arms and legs. Good distal pulses. LABORATORY DATA, imaging studies: pls see below microbiology: reviewed Diabetic ketoacidosis (DKA). s/p insulin drip per DKA protocol, every hour fingersticks, every 4-hour basic metabolic panels (BMPs).on levemir and lispro. consistent carbs diet. [facility] Stress ulcer prophylaxis with intravenous (IV) Protonix ordered. Deep vein thrombosis (DVT) prophylaxis with Lovenox has been ordered. Transaminitis s/p cholecystectomy. Her bilirubin is normal and alkaline phosphatase essentially normal. View of her past history shows her liver functions tend to always bump when she is in DKA. MRCP reviewed. GI consulted History of depression. Continue her antidepressant with Pristiq. Avoid serotonin and norepinephrine reuptake inhibitors (SNRI) withdrawal. We are going to continue trazodone 50 mg before bedtime. History of upper gastrointestinal (GI) bleeding in the past. Continue Protonix. I have ordered IV for stress ulcer prophylaxis. Continue Carafate. History of asthma. Continue Singulair 10 mg daily and nebulized bronchodilator. Hyperlipidemia. Continue atorvastatin 20 mg daily. History of hypertension. Hold her antihypertensives. Blood pressure is only 90 systolic. We will hydrate her. She will probably need to have these restarted once she is back to normal volume status. History of diabetic neuropathy. Continue gabapentin 800 mg three times a day. Anxiety/depression. She is on Klonopin, which we will continue to avoid withdrawal symptoms. Mental status is normal, so I think it is okay to continue this. History of celiac disease. Continue a gluten-free diet. History of transient ischemic attacks (TIA). Hold her aspirin until her DKA has abated, then restart aspirin for thromboembolic prophylaxis. History of obstructive sleep apnea (JERAD). Continue continuous positive airway pressure (CPAP). She may use her home CPAP for this. disposition[facility]. A-FIB/CHADSVASC A-FIB History Current/History of A-Fib/PAF?: No Current Oral Anticoagulant The: No VS, I&O, 24H, Fishbone Vital Signs/I&O Vital Signs Date Time Temp Pulse Resp B/P (MAP) Pulse Ox O2 Delivery O2 Flow Rate FiO2 06/09/18 06:03 71 135/73 (93) 95 06/09/18 04:03 98.8 15 1.0 06/08/18 17:10 Room Air I&O- Last 24 Hours up to 6 AM 06/09/18 06:00 Intake Total 5174 ml Output Total 1200 ml Balance 3974 ml Laboratory Data 24H LABS Laboratory Tests 2 06/08/18 08:41: Immature Granulocyte % (Auto) 0.4, White Blood Count 6.9, Red Blood Count 4.23, Hemoglobin 13.5, Hematocrit 40.2, Mean Corpuscular Volume 95.0, Mean Corpuscular Hemoglobin 31.9, Mean Corpuscular Hemoglobin Concent 33.6, Red Cell Distribution Width 12.1, Platelet Count 250, Neutrophils (%) (Auto) 66.3H, Lymphocytes (%) ( Auto) 20.7L, Monocytes (%) (Auto) 6.3H, Eosinophils (%) (Auto) 4.3H, Basophils (%) (Auto) 2.0H, Neutrophils # (Auto) 4.6, Lymphocytes # (Auto) 1.4L, Monocytes # (Auto) 0.4, Eosinophils # (Auto) 0.3, Basophils # (Auto) 0.1, Nucleated Red Blood Cells % (auto) 0.0, Blood Gas Bicarbonate Standard 20.7, Venous Blood pH 7.364, Venous Blood Partial Pressure CO2 35.8L, Venous Blood Partial Pressure O2 207.2H, Venous Blood Total Carbon Dioxide 21.1L, Venous Blood HCO3 20.0L, Venous Blood Oxygen Saturation 99.3H, Venous Blood Base Excess -4.7L 06/08/18 08:45: Bedside Glucose (Misc Panel) > 600*H 06/08/18 09:12: Urine Color STRAW, Urine Appearance CLEAR, Urine pH 5.0, Urine Specific Hurley 1.026, Urine Protein NEGATIVE, Urine Glucose (UA) 3+H, Urine Ketones 1+H, Urine Blood NEGATIVE, Urine Nitrite NEGATIVE, Urine Bilirubin NEGATIVE, Urine Urobilinogen 0.2, Urine Leukocyte Esterase NEGATIVE, Urine WBC (Auto) 1, Urine RBC (Auto) 0, Urine Hyaline Casts (Auto) 0, Urine Bacteria (Auto) NEGATIVE, Urine Squamous Epithelial Cells 1, Urine Mucus (Auto) SMALL, Urine Sperm (Auto) 06/08/18 10:14: Anion Gap 10, Glomerular Filtration Rate 57.5, Calcium Level 8.3L, Phosphorus Level 4.5, Magnesium Level 2.2, Aspartate Amino Transf (AST/SGOT) 339H, Alanine Aminotransferase (ALT/SGPT) 218H, Alkaline Phosphatase 140H, Total Bilirubin 0.6, Direct Bilirubin 0.2, Total Protein 6.7, Albumin 3.3, Albumin/Globulin Ratio 0.97L, Lipase 202, B-Hydroxybutyrate 27.24H 06/08/18 13:10: Bedside Glucose (Misc Panel) 479H 06/08/18 14:40: Bedside Glucose (Misc Panel) 303H 06/08/18 17:23: Bedside Glucose (Misc Panel) 374H 06/08/18 18:11: Bedside Glucose (Misc Panel) 410H 06/08/18 18:12: Anion Gap 13, Glomerular Filtration Rate > 60.0, Estimated Mean Plasma Glucose 197H, Hemoglobin A1c 8.5, Blood Urea Nitrogen 18, Creatinine 0.95, Sodium Level 135L, Potassium Level 4.2, Chloride Level 101, Carbon Dioxide Level 21, Calcium Level 8.4L 06/08/18 19:06: Bedside Glucose (Misc Panel) 319H 06/08/18 19:54: Bedside Glucose (Misc Panel) 239H 06/08/18 20:58: Bedside Glucose (Misc Panel) 158H 06/08/18 21:54: Bedside Glucose (Misc Panel) 123H 06/08/18 22:55: Bedside Glucose (Misc Panel) 113H 06/09/18 00:48: Anion Gap 6L, Glomerular Filtration Rate > 60.0, Blood Urea Nitrogen 19H, Creatinine 0.84, Sodium Level 141, Potassium Level 4.3, Chloride Level 112H, Carbon Dioxide Level 23, Calcium Level 7.4L 06/09/18 00:58: Bedside Glucose (Misc Panel) 107H 06/09/18 05:15: Nucleated Red Blood Cells % (auto) 0.0, Anion Gap 4L, Glomerular Filtration Rate > 60.0, Calcium Level 7.3L, Magnesium Level 2.0, Aspartate Amino Transf (AST/SGOT) 282H, Alanine Aminotransferase (ALT/SGPT) 308H, Alkaline Phosphatase 171H, Total Bilirubin 0.4, Direct Bilirubin < 0.1, Total Protein 5.3#L, Albumin 2.4#L, Albumin/Globulin Ratio 0.83L CBC/BMP Laboratory Tests 06/08/18 08:41 Red Blood Count 4.23, Mean Corpuscular Volume 95.0, Mean Corpuscular Hemoglobin 31.9, Mean Corpuscular Hemoglobin Concent 33.6, Red Cell Distribution Width 12.1, Neutrophils (%) (Auto) 66.3 H, Lymphocytes (%) (Auto) 20.7 L, Monocytes (%) (Auto) 6.3 H, Eosinophils (%) (Auto) 4.3 H, Basophils (%) (Auto) 2.0 H, Neutrophils # (Auto) 4.6, Lymphocytes # (Auto) 1.4 L, Monocytes # (Auto) 0.4, Eosinophils # (Auto) 0.3, Basophils # (Auto) 0.1 06/08/18 10:14 06/08/18 18:12 Calcium Level 8.4 L 06/09/18 00:48 Calcium Level 7.4 L 06/09/18 05:15 Red Blood Count 3.46 L, Mean Corpuscular Volume 95.4, Mean Corpuscular Hemoglobin 31.5, Mean Corpuscular Hemoglobin Concent 33.0, Red Cell Distribution Width 12.5 LINDSAY HANLEY MD Jun 09, 2018 08:13
[2018-06-09] MEDS ORDERED: LEVEMIR (INSULIN DETEMIR) 1 UNITS/0.01ML SC SCH ×2 (09:00→21:00)
[2018-06-09] MEDS: PANTOPRAZOLE 40MG INJ (PROTONIX) (C9113) IV SCH ×2 (09:21→20:33)
[2018-06-09] MEDS: SUCRALFATE 1 GM TAB PO SCH ×2 (09:22→20:33)
[2018-06-09] MEDS: ASPIRIN 81 MG ENTERIC TAB PO SCH (09:22)
[2018-06-09] MEDS: clonazePAM 1 MG TAB PO SCH ×3 (09:22→20:33)
[2018-06-09] MEDS: PREGABALIN 50 MG CAP (LYRICA) PO SCH ×2 (09:22→20:33)
[2018-06-09] MEDS: ATORVASTATIN 20 MG TAB PO SCH (09:22)
[2018-06-09] MEDS: LEVEMIR (INSULIN DETEMIR) 1 UNITS/0.01ML SC SCH (09:22)
[2018-06-09 09:26] LABS: BLOOD UREA NITROGEN 12 MG/DL (7-18); CALCIUM LEVEL 7.7 MG/DL (8.5-10.1); CARBON DIOXIDE LEVEL 23 MEQ/L (21-32); CHLORIDE LEVEL 112 MEQ/L (98-107); CREATININE FOR GFR 0.81 MG/DL (0.55-1.30); GLOMERULAR FILTRATION RATE > 60.0 (>51); GLUCOSE, FASTING 173 MG/DL (70-100); POTASSIUM SERUM 4.5 MEQ/L (3.5-5.1); SODIUM LEVEL 141 MEQ/L (136-145)
[2018-06-09] MEDS: NS 1,000 ML IV SCH ×2 (10:20→20:06)
[2018-06-09] MEDS: PERCOCET 5MG/325MG TAB PO PRN (12:28)
[2018-06-09] MEDS ORDERED: D5W/0.45% SODIUM CHLORIDE 1,000 ML IV ONE (18:00)
[2018-06-09] MEDS: MONTELUKAST 10 MG TAB PO SCH (20:33)
[2018-06-09] MEDS: hydrOXYzine 25 MG TAB PO SCH (20:33)
[2018-06-09] MEDS: ENOXAPARIN 40 MG/0.4 ML SYRINGE (J1650) SC SCH (20:34)
[2018-06-09] MEDS: traZODone 50 MG TAB PO PRN (20:58)
[2018-06-09] MEDS: DESVENLAFAXINE ER 50 MG TABLET (PRISTIQ) PO SCH (20:58)
[2018-06-10] VITALS (7 sets, daily range): BP systolic 108–164; BP diastolic 60–88
[2018-06-10] MEDS: NS 1,000 ML IV SCH (02:43)
[2018-06-10 07:27] LABS: BASO # 0.1 10^3/uL (0.0-0.2); BASO % 1.7 % (0.0-1.0); EOS # 0.2 10^3/uL (0.0-0.50); EOS % 2.8 % (0.0-3.0); HEMATOCRIT 36.5 % (36.0-47.0); LYMPH # 1.2 10^3/uL (1.5-4.5); MEAN CORPUSCULAR HGB CONC 32.9 g/dl (32.0-36.5); MEAN CORPUSCULAR VOLUME 97.3 fl (80.0-96.0); MONO # 0.3 10^3/uL (0.0-0.8); MONO % 5.6 % (0.0-5.0); NEUTROPHILS # 3.6 10^3/uL (1.8-7.7); NEUTROPHILS % 67.5 % (36.0-66.0); PLATELET COUNT, AUTOMATED 201 10^3/uL (150-450); RED BLOOD COUNT 3.75 10^6/uL (4.00-5.40); WHITE BLOOD COUNT 5.3 10^3/uL (4.0-10.0)
[2018-06-10] MEDS: METOCLOPRAMIDE 10 MG TAB PO SCH ×4 (07:30→20:56)
[2018-06-10] MEDS: HumaLOG INSULIN (NovoLOG) PER UNIT SC SCH ×4 (07:30→22:00)
[2018-06-10 07:54] LABS: ALBUMIN 2.8 GM/DL (3.2-5.2); ALT/SGPT 218 U/L (12-78); BILIRUBIN,DIRECT < 0.1 MG/DL (0.0-0.2); BILIRUBIN,TOTAL 0.2 MG/DL (0.2-1.0); BLOOD UREA NITROGEN 8 MG/DL (7-18); CALCIUM LEVEL 7.9 MG/DL (8.5-10.1); CARBON DIOXIDE LEVEL 26 MEQ/L (21-32); CHLORIDE LEVEL 114 MEQ/L (98-107); GLOMERULAR FILTRATION RATE > 60.0 (>51); GLUCOSE, FASTING 116 MG/DL (70-100); POTASSIUM SERUM 3.5 MEQ/L (3.5-5.1); SODIUM LEVEL 145 MEQ/L (136-145); TOTAL PROTEIN 5.8 GM/DL (6.4-8.2)
[2018-06-10] MEDS: ASPIRIN 81 MG ENTERIC TAB PO SCH (08:25)
[2018-06-10] MEDS: SUCRALFATE 1 GM TAB PO SCH ×2 (08:25→20:56)
[2018-06-10] MEDS: PREGABALIN 50 MG CAP (LYRICA) PO SCH ×2 (08:25→20:56)
[2018-06-10] MEDS: PANTOPRAZOLE 40MG INJ (PROTONIX) (C9113) IV SCH ×2 (08:25→20:56)
[2018-06-10] MEDS: ATORVASTATIN 20 MG TAB PO SCH (08:25)
[2018-06-10] MEDS: clonazePAM 1 MG TAB PO SCH ×3 (08:25→20:56)
[2018-06-10] MEDS: PERCOCET 5MG/325MG TAB PO PRN ×2 (08:26→22:54)
[2018-06-10] MEDS: LEVEMIR (INSULIN DETEMIR) 1 UNITS/0.01ML SC SCH (09:00)
[2018-06-10] MEDS ORDERED: D5W/0.45% SODIUM CHLORIDE 1,000 ML IV SCH (10:30)
[2018-06-10] MEDS ORDERED: ISOVUE-300 61% 50ML VIAL (Q9967) As Ordered ONE (11:43)
[2018-06-10] MEDS ORDERED: fentaNYL 100 MCG/2 ML INJECTION (J3010) As Ordered ONE ×2 (13:37→14:58)
[2018-06-10 13:45] LABS: INR 0.94; PARTIAL THROMBOPLASTIN TIME 26.1 SECONDS (25.4-37.6); PROTHROMBIN TIME 12.7 SECONDS (12.1-14.4)
[2018-06-10] MEDS: fentaNYL 100 MCG/2 ML INJECTION (J3010) IV PRN ×2 (13:45→13:53)
[2018-06-10] MEDS ORDERED: MIDAZOLAM INJ 2 MG/2 ML VIAL (J2250) As Ordered ONE (14:58)
[2018-06-10] MEDS ORDERED: ONDANSETRON 4MG/2ML VIAL (J2405) As Ordered ONE (14:58)
[2018-06-10] MEDS ORDERED: ePHEDrine SULFATE 25 MG/5 ML(5MG/ML) SYRINGE As Ordered ONE (14:58)
[2018-06-10] MEDS ORDERED: PROPOFOL 200 MG/20 ML VIAL As Ordered ONE (14:58)
[2018-06-10] MEDS ORDERED: SUGAMMADEX SODIUM 500 MG/5 ML VIAL (BRIDION) As Ordered ONE (14:58)
[2018-06-10] MEDS ORDERED: LIDOCAINE 2% INJ 100 MG/5 ML SDV (FOR ANES.) As Ordered ONE (14:58)
[2018-06-10] MEDS ORDERED: ROCURONIUM BROMIDE 50 MG/5 ML VIAL As Ordered ONE (14:58)
[2018-06-10] MEDS ORDERED: dexameTHASONE 4 MG/ML 1ML VIAL (J1100) As Ordered ONE (14:58)
[2018-06-10] MEDS ORDERED: METOCLOPRAMIDE INJ 10MG/2ML VIAL (J2765) As Ordered ONE (14:58)
[2018-06-10] MEDS ORDERED: PERCOCET 5MG/325MG TAB PO PRN ×2 (15:15→17:15)
[2018-06-10] MEDS ORDERED: fentaNYL 100 MCG/2 ML INJECTION (J3010) IV PRN ×2 (15:15→17:15)
[2018-06-10] MEDS ORDERED: LR 1,000 ML IV SCH ×2 (15:15→17:15)
[2018-06-10] MEDS ORDERED: ONDANSETRON 4MG/2ML VIAL (J2405) IV PRN ×2 (15:15→17:15)
--- NOTE | 2018-06-10 15:43 | ROOR ---
Patient Name: Alia Sierra Procedure Date: 06/10/2018 7:33 AM Date of : 1965 Age: 52 Room: [facility] Gender: Female Note Status: Finalized Procedure: ERCP + Papillotomy + Balloon Sweep Indications: Abdominal pain of suspected biliary origin, Abnormal MRCP, Elevated liver enzymes Providers: Aurelio Subramanian MD Referring MD: Malou Brandon MD Requesting Provider: Medicines: General Anesthesia Complications: No immediate complications. Procedure: Pre-Anesthesia Assessment: - The heart rate, respiratory rate, oxygen saturations, blood pressure, adequacy of pulmonary ventilation, and response to care were monitored throughout the procedure. The Duodenoscope was introduced through the mouth, and advanced to the duodenum and used to inject contrast into the bile duct. The ERCP was accomplished without difficulty. The patient tolerated the procedure well. Findings: The upper GI tract was traversed under direct vision without detailed examination. The major papilla was normal. The bile duct was deeply cannulated with the short-nosed traction sphincterotome. Contrast was injected. I personally interpreted the bile duct images. Ductal flow of contrast was adequate. Image quality was adequate. Contrast extended to the entire biliary tree. The entire biliary tree was markedly dilated, acquired. A short 0.035 inch Soft Jagwire was passed into the biliary tree. Biliary sphincterotomy was made with a monofilament traction (standard) sphincterotome using ERBE electrocautery. There was no post-sphincterotomy bleeding. The biliary tree was swept with a 12 mm balloon starting at the bifurcation. Sludge was swept from the duct. Impression: - The entire biliary tree was markedly dilated, acquired. - A biliary sphincterotomy was performed. - The biliary tree was swept and sludge was found. - The examination was otherwise normal. Recommendation: - Avoid aspirin and nonsteroidal anti-inflammatory medicines. - [facility]. - Watch for pancreatitis, bleeding, perforation, and cholangitis. - The findings and recommendations were discussed with the patient's family. Aurelio Subramanian MD Aurelio Subramanian MD 06/10/2018 3:43:25 PM Electronically signed by Aurelio Subramanian MD Number of Addenda: 0 Note Initiated On: 06/10/2018 7:33 AM Estimated Blood Loss: Estimated blood loss: none.
--- NOTE | 2018-06-10 16:02 | REP ---
C-ARM VIEWS DURING ERCP: 16 C-ARM views during ERCP are performed. Contrast is injected into a dilated biliary system. No persistent filling defect is seen. The common bile duct is seen up to its distal aspect at the very distal end is not visualized. There is no passage of contrast into the duodenum. 2 minutes and 33 seconds of fluoroscopy time was utilized. Electronically Signed by Ahsan Manuel MD 06/12/2018 12:02 P
--- NOTE | 2018-06-10 20:04 | CR ---
DATE OF CONSULTATION: 06/09/2018 This is a 52-year-old white female who was admitted to [facility] in diabetic ketoacidosis (DKA). The patient has a long history of diabetes. She has intermittent bouts of liver function elevation. Meantime, she is admitted for DKA. The patient relates over the past year, she has had intermittent bouts of abdominal pain. She denies any current fevers, night sweats or shaking chills. She had episodes of vomiting, but none since she has been admitted and her diabetes has become under control. She has had a previous admission 2018. The patient was seen by Dr. Cornelius under similar circumstances where the liver functions were elevated pattern. The magnetic resonance cholangiopancreatography (MRCP) does not show any choledocholithiasis, but does show chronic significant biliary dilatation. The radiologist's interpretation of the most recent MRCP suggests a cut off of the distal biliary tract without evidence of it obviously tapering. He is concerned of a possible intraductal filling defect, either of stones, debris or gravel. This could not be ascertained completely by the MRCP. The previous HIDA scan by Dr. Cornelius in 2018 showed patency of the biliary tract. In light of the patient's total bilirubin, this would also be significant for patency of the duct. However, the patient has again been admitted for the somewhere abnormalities with pain, epigastric to right upper quadrant. The patient and I discussed the situation and we would like to proceed with a possible endoscopic retrograde cholangiopancreatography (ERCP) with possible papillotomy to possibly decompress the biliary tract to see whether this improves any of her episodic bouts of abdominal pain. The patient has had gastric sleeve operation approximately four years ago. She has lost 80 pounds since that time. She is status post cholecystectomy. PAST MEDICAL HISTORY: Positive for 1. Diabetes. 2. Hypertensive heart disease. 3. Depression and anxiety. 4. Hyperlipidemia. 5. Celiac disease. 6. History of hiatal hernia status post Justice fundoplication. 7. Gastric sleeve. 8. Her last colonoscopy was 2012. FAMILY HISTORY: Noncontributory to the above situation. SOCIAL HISTORY: Cigarettes, alcohol and drugs are negative. ALLERGIES: GLUTEN, PREDNISONE, BARIUM. MEDICATIONS: - Protonix - Carafate - iron - trazodone - Levemir - sliding scale insulin - propranolol - Pristiq - Trulicity - Singulair - Drisdol - atorvastatin - lisinopril - gabapentin - Reglan - aspirin - Zofran - clonazepam REVIEW OF SYSTEMS: Only pertinent for right upper quadrant abdominal pain with abnormal liver functions and dilated biliary tract. PHYSICAL EXAMINATION: GENERAL: Well-developed, well-nourished white female in no obvious acute distress. Appears somewhat better. CHEST: Clear to auscultation. CARDIOVASCULAR: Showed a regular rhythm. No murmurs, gallops. No physiological split. S1-S2. ABDOMEN: Soft. Right upper quadrant tenderness. No hepatosplenomegaly. Bowel sounds positive. LABORATORY STUDIES: On this admission shows a white count of 6900, hemoglobin and hematocrit (H and H) 13.5 and 40.2. The patient's chemistry on admission was basically seen on 06/08/2018. She had an AST of 339, ALT of 218, alkaline phosphatase was 140, total bilirubin was normal, albumin was 3.3, lipase was normal. Liver functions on 06/09/2018 was 282, 308, 171 alkaline phosphatase and still normal bilirubin. The patient imaging studies include abdominal CT, which impression was, aside from cholecystectomy, intrahepatic biliary dilatation. Bile duct measured 15-16 mm. No obvious intraluminal abnormality of the spleen. The patient also on this admission had a abdominal MRI, which showed common bile duct and common hepatic duct and biliary ductal dilatation without karon evidence choledocholithiasis. There was little change from 06/12/2015. It is doubtful that the findings were secondary to neoplasm, though this cannot be completely excluded. Radiology was recommending ERCP. The concern was that there was effect of the common bile duct abruptly terminated rather than smoothly tapering into the ampulla Vater. This is a similar appearance from before. ANALYSIS: Abdominal pain of unknown etiology. The patient with abnormal liver , chronically dilated biliary tract with a question of an abnormality, abrupt formation of the distal common bile duct. PLAN: Will be to set the patient up for an ERCP with hepatotomy and balloon sweep. This has been discussed with the patient. She has been apprised of the difficulties that may present itself because of the previous gastric bypass surgery and her Gretchen fundoplication and may not resolve her symptoms. Informed consent has been given to the patient including risks of pancreatitis and bleeding complications and, rarely, perforation
[2018-06-10] MEDS: ENOXAPARIN 40 MG/0.4 ML SYRINGE (J1650) SC SCH (20:56)
[2018-06-10] MEDS: DESVENLAFAXINE ER 50 MG TABLET (PRISTIQ) PO SCH (20:56)
[2018-06-10] MEDS: hydrOXYzine 25 MG TAB PO SCH (20:56)
[2018-06-10] MEDS: MONTELUKAST 10 MG TAB PO SCH (20:56)
[2018-06-10] MEDS ORDERED: LEVEMIR (INSULIN DETEMIR) 1 UNITS/0.01ML SC SCH (21:00)
[2018-06-10] MEDS ORDERED: HumaLOG INSULIN (NovoLOG) PER UNIT SC STA ×2 (22:35→22:53)
[2018-06-10] MEDS ORDERED: LR 1,000 ML IV STA (22:44)
--- NOTE | 2018-06-10 22:50 | TRANSCARE ---
Transition of Care: Transition of Care Jun 10 2349 Was contacted by nursing regarding elevated POC glucose 833. Patient reports headache 7/10 and nausea but no vomiting or abdominal pain at this time. She is A&OX3. Most vital signs grossly unremarkable. Pt received 10 unit of levimir at 2100. She ate hamburger reed and cottage cheese tonight. Repeat POC glucose shown as greater than 600 on POC. FSBS Q1H, humalog 14 Units SC stat, BMP, VBG, acetone/ketone, mag lvl, phosphorous lvl, UA, and repeat vital signs ordered. Lipase ordered as pt underwent ERCP today.2L LR bolus and LR at 200ml/hr ordered. Repeat POC glucose after 14 units is 554. No increased anion gap, AG at 8. PH 7.325 with 20.2 bicarb. Serum osmolality pending. Pt is made NPO. Pt continued to have nausea and thirst; headache remains 7/10 after percocet. Cont to monitor the patient closely. Jun 11 148 Pt received 10 units of levemir and 12 units of insulin regular, POC glucose 463 then 383 around 0223 am. K 4.1 with AG at 7. b-hydroxybutyrate 28.87. Serum osmo 332. Pt reported headache and nausea resolved. Cont LR at 200cc/hr. Continue to monitor pt closely; next POC at 0400. Insulin determir changed to 20 units BID scheduled KEVIN HU DO June 10, 2018 22:49
[2018-06-10 22:53] LABS: VENOUS BASE EXCESS -5.4 (-2.0-2.0); VENOUS HCO3 20.2 MEQ/L (23.0-27.0); VENOUS O2 SATURATION 96.9 % (60.0-80.0); VENOUS PARTIAL PRESSURE CO2 39.6 mmHg (38.0-50.0); VENOUS PARTIAL PRESSURE O2 92.6 mmHg (30.0-50.0); VENOUS PH 7.325 UNITS (7.330-7.430); VENOUS STANDARD HCO3 20.1 MEQ/L; VENOUS TOTAL CO2 21.4 MEQ/L (24.0-28.0)
[2018-06-10 23:00] LABS: APPEARANCE, URINE CLEAR (CLEAR); BACTERIA, URINE AUTO NEGATIVE (NEGATIVE); BILIRUBIN, URINE AUTO NEGATIVE (NEGATIVE); BLOOD, URINE BLOOD NEGATIVE (NEGATIVE); COLOR, URINE COLORLESS (YELLOW); GLUCOSE, URINE (UA) AUTO 3+ mg/dL (NEGATIVE); KETONE, URINE AUTO 1+ mg/dL (NEGATIVE); LEUKOCYTE ESTERASE, URINE AUTO NEGATIVE (NEGATIVE); NITRITE, URINE AUTO NEGATIVE (NEGATIVE); PROTEIN, URINE AUTO NEGATIVE (NEGATIVE); RBC, URINE AUTO 0 /HPF (0-3); SPECIFIC GRAVITY URINE AUTO 1.014 (1.002-1.035); SQUAMOUS EPITHELIAL CELL UR AU 0 /HPF (0-6); UROBILINOGEN, URINE AUTO 0.2 mg/dL (0.0-2.0); WBC, URINE AUTO 0 /HPF (0-3)
[2018-06-10 23:54] LABS: CALCIUM LEVEL 7.7 MG/DL (8.5-10.1); CREATININE FOR GFR 1.15 MG/DL (0.55-1.30); GLOMERULAR FILTRATION RATE 52.3 (>51); MAGNESIUM LEVEL 1.8 MG/DL (1.8-2.4); PHOSPHORUS LEVEL 3.8 MG/DL (2.5-4.9); POTASSIUM SERUM 6.4 MEQ/L (3.5-5.1)
[2018-06-11 00:17] LABS: ACETONE/KETONE 28.87 MG/DL (<2.81)
[2018-06-11] MEDS ORDERED: HumaLOG INSULIN (NovoLOG) PER UNIT SC ONE (00:45)
[2018-06-11] MEDS ORDERED: LR 1,000 ML IV ONE (00:45)
[2018-06-11] MEDS ORDERED: LEVEMIR (INSULIN DETEMIR) 1 UNITS/0.01ML SC ONE (00:45)
[2018-06-11 01:40] LABS: CALCIUM LEVEL 7.9 MG/DL (8.5-10.1); CREATININE FOR GFR 1.25 MG/DL (0.55-1.30); GLOMERULAR FILTRATION RATE 47.5 (>51); POTASSIUM SERUM 4.1 MEQ/L (3.5-5.1)
[2018-06-11] MEDS: LR 1,000 ML IV SCH ×3 (01:50→11:40)
[2018-06-11 02:00] VITALS: BP 116/66
--- NOTE | 2018-06-11 04:22 | IPNPDOC ---
Text Note Date of Service The patient was seen on 06/11/18. NOTE Last night, pt had a blood glucose level of 833. Lab showed no metabolic acido sis or anion gap, only moderate hyperkalemia of 6.4. After aggressive IV hydration, repeat NovoLog doses and increasing Levemir dose, blood sugar now is 218. K level is normalized. Continue IV fluid for now; monitor blood sugar. See additional details on resident's note. A-FIB/CHADSVASC A-FIB History Current/History of A-Fib/PAF?: No VS,Fishbone, I+O VS, Fishbone, I+O Laboratory Tests 06/10/18 07:11 Red Blood Count 3.75 L, Mean Corpuscular Volume 97.3 H, Mean Corpuscular Hemoglobin 32.0, Mean Corpuscular Hemoglobin Concent 32.9, Red Cell Distribution Width 12.9, Neutrophils (%) (Auto) 67.5 H, Lymphocytes (%) (Auto) 22.0 L, Monocytes (%) (Auto) 5.6 H, Eosinophils (%) (Auto) 2.8, Basophils (%) (Auto) 1.7 H, Neutrophils # (Auto) 3.6, Lymphocytes # (Auto) 1.2 L, Monocytes # (Auto) 0.3, Eosinophils # (Auto) 0.2, Basophils # (Auto) 0.1, Calcium Level 7.9 L, Aspartate Amino Transf (AST/SGOT) 97 H, Alanine Aminotransferase (ALT/SGPT) 218 H, Alkaline Phosphatase 165 H, Total Bilirubin 0.2, Direct Bilirubin < 0.1, Total Protein 5.8 L, Albumin 2.8 L 06/10/18 22:37 Calcium Level 7.7 L 06/11/18 01:05 Calcium Level 7.9 L Vital Signs Date Time Temp Pulse Resp B/P (MAP) Pulse Ox O2 Delivery O2 Flow Rate FiO2 06/11/18 02:00 97.8 77 18 116/66 (83) 94 06/10/18 15:04 2 06/08/18 17:10 Room Air I&O- Last 24 Hours up to 6 AM 06/11/18 06:00 Intake Total 4770 ml Output Total 1800 ml Balance 2970 ml JAIME VILLAGRAN MD June 11, 2018 04:22
[2018-06-11 06:00] VITALS: BP 105/67
[2018-06-11] MEDS: HumaLOG INSULIN (NovoLOG) PER UNIT SC SCH ×5 (06:00→21:54)
[2018-06-11 06:19] LABS: HEMATOCRIT 32.3 % (36.0-47.0); HEMOGLOBIN 10.7 g/dl (12.0-15.5); MEAN CORPUSCULAR HEMOGLOBIN 31.4 pg (27.0-33.0); MEAN CORPUSCULAR HGB CONC 33.1 g/dl (32.0-36.5); MEAN CORPUSCULAR VOLUME 94.7 fl (80.0-96.0); PLATELET COUNT, AUTOMATED 197 10^3/uL (150-450); RED BLOOD COUNT 3.41 10^6/uL (4.00-5.40); WHITE BLOOD COUNT 8.5 10^3/uL (4.0-10.0)
[2018-06-11 06:41] LABS: ALBUMIN 2.4 GM/DL (3.2-5.2); ALT/SGPT 194 U/L (12-78); BILIRUBIN,DIRECT < 0.1 MG/DL (0.0-0.2); BILIRUBIN,TOTAL 0.3 MG/DL (0.2-1.0); BLOOD UREA NITROGEN 12 MG/DL (7-18); CALCIUM LEVEL 8.2 MG/DL (8.5-10.1); CARBON DIOXIDE LEVEL 30 MEQ/L (21-32); CHLORIDE LEVEL 111 MEQ/L (98-107); CREATININE FOR GFR 0.75 MG/DL (0.55-1.30); GLOMERULAR FILTRATION RATE > 60.0 (>51); GLUCOSE, FASTING 110 MG/DL (70-100); POTASSIUM SERUM 3.6 MEQ/L (3.5-5.1); SODIUM LEVEL 144 MEQ/L (136-145); TOTAL PROTEIN 5.4 GM/DL (6.4-8.2)
[2018-06-11] MEDS: METOCLOPRAMIDE 10 MG TAB PO SCH ×4 (07:50→21:51)
[2018-06-11] MEDS: SUCRALFATE 1 GM TAB PO SCH ×2 (08:17→21:51)
[2018-06-11] MEDS: clonazePAM 1 MG TAB PO SCH ×3 (08:17→21:51)
[2018-06-11] MEDS: PREGABALIN 50 MG CAP (LYRICA) PO SCH ×2 (08:17→21:51)
[2018-06-11] MEDS: ATORVASTATIN 20 MG TAB PO SCH (08:17)
[2018-06-11] MEDS: PANTOPRAZOLE 40MG INJ (PROTONIX) (C9113) IV SCH ×2 (08:17→21:53)
[2018-06-11] MEDS: ASPIRIN 81 MG ENTERIC TAB PO SCH (08:17)
[2018-06-11] MEDS ORDERED: LEVEMIR (INSULIN DETEMIR) 1 UNITS/0.01ML SC SCH ×2 (09:00)
[2018-06-11 10:00] VITALS: BP 139/78
[2018-06-11] MEDS: PERCOCET 5MG/325MG TAB PO PRN (11:40)
[2018-06-11] MEDS ORDERED: PERCOCET 5MG/325MG TAB PO PRN (12:00)
--- NOTE | 2018-06-11 12:24 | IPNPDOC ---
Date Seen The patient was seen on 06/11/18. Progress Note SUBJECTIVE: Pt has had difficult to control DM2 with episodes of hyper and hypoglycemia. She c/o severe pain this am. s/p ERCP 06/10/18 with balloon sweep in the setting of previous gastric bypass and Gretchen fundoplication. no c/o nausea or vomiting. GENERAL APPEARANCE: She looks well rested, comfortable. She is not jaundiced. Pupils equal, round, reactive to light. Tympanic membranes (TMs) normal. Pharynx showed dry mucous membranes. NECK: Supple. LUNGS: Clear. HEART: Without murmur. ABDOMEN: Soft. Tender right upper quadrant. No guarding, rebound, or referred pain. EXTREMITIES: No clubbing, cyanosis, or edema. Normal strength in the arms and legs. Good distal pulses. LABORATORY DATA, imaging studies: pls see below microbiology: reviewed Diabetic ketoacidosis (DKA)/Brittle DM with episodes of hypo/hyperglycemia s/p insulin drip per DKA protocol, every hour fingersticks, every 4-hour basic metabolic panels (BMPs).on levemir titrated for better control and lispro. consistent carbs diet. transfer to [facility] Stress ulcer prophylaxis with intravenous (IV) Protonix ordered. Deep vein thrombosis (DVT) prophylaxis with Lovenox has been ordered. Transaminitis with gallbladder sludge s/p ERCP s/p cholecystectomy. Her bilirubin is normal and alkaline phosphatase essentially normal. View of her past history shows her liver functions tend to always bump when she is in DKA. MRCP reviewed. GI consulted pt underwent ERCP 06/10/18 with balloon sweep. prn pain meds. History of depression. Continue her antidepressant with Pristiq. Avoid serotonin and norepinephrine reuptake inhibitors (SNRI) withdrawal. We are going to continue trazodone 50 mg before bedtime. History of upper gastrointestinal (GI) bleeding in the past. Continue Protonix. I have ordered IV for stress ulcer prophylaxis. Continue Carafate. History of asthma. Continue Singulair 10 mg daily and nebulized bronchodilator. Hyperlipidemia. Continue atorvastatin 20 mg daily. History of hypertension. Hold her antihypertensives. Blood pressure is only 90 systolic. We will hydrate her. She will probably need to have these restarted once she is back to normal volume status. History of diabetic neuropathy. Continue gabapentin 800 mg three times a day. Anxiety/depression. She is on Klonopin, which we will continue to avoid withdrawal symptoms. Mental status is normal, so I think it is okay to continue this. History of celiac disease. Continue a gluten-free diet. History of transient ischemic attacks (TIA). Hold her aspirin until her DKA has abated, then restart aspirin for thromboembolic prophylaxis. History of obstructive sleep apnea (JERAD). Continue continuous positive airway pressure (CPAP). She may use her home CPAP for this. disposition:pending control of DM and abd pain A-FIB/CHADSVASC A-FIB History Current/History of A-Fib/PAF?: No Current Oral Anticoagulant The: No VS, I&O, 24H, Fishbone Vital Signs/I&O Vital Signs Date Time Temp Pulse Resp B/P (MAP) Pulse Ox O2 Delivery O2 Flow Rate FiO2 06/11/18 11:40 18 06/11/18 10:00 98.3 82 139/78 (98) 95 06/10/18 15:04 2 06/08/18 17:10 Room Air I&O- Last 24 Hours up to 6 AM 06/11/18 06:00 Intake Total 5541 ml Output Total 2900 ml Balance 2641 ml Laboratory Data 24H LABS Laboratory Tests 2 06/10/18 13:12: Prothrombin Time 12.7, Prothromb Time International Ratio 0.94, Activated Part ial Thromboplast Time 26.1 06/10/18 15:07: Bedside Glucose (Misc Panel) 92 06/10/18 21:05: Bedside Glucose Confirm (Misc) 833*H 06/10/18 22:37: Anion Gap 8, Glomerular Filtration Rate 52.3, Blood Urea Nitrogen 17#, Creatinine 1.15#, Sodium Level 136#, Potassium Level 6.4*H, Chloride Level 107, Carbon Dioxide Level 21, Calcium Level 7.7L, Phosphorus Level 3.8, Magnesium Level 1.8, Lipase 159, B-Hydroxybutyrate 28.87H 06/10/18 22:41: Urine Appearance CLEAR, Urine Color COLORLESS, Urine pH 6.0, Urine Specific [place] 1.014, Urine Protein NEGATIVE, Urine Glucose (UA) 3+H, Urine Ketones 1+H, Urine Urobilinogen 0.2, Urine Bilirubin NEGATIVE, Urine Leukocyte Esterase NEGATIVE, Urine Blood NEGATIVE, Urine Nitrite NEGATIVE, Urine WBC (Auto) 0, Urine RBC (Auto) 0, Urine Hyaline Casts (Auto) 0, Urine Bacteria (Auto) NEGAT DMITRIY, Urine Squamous Epithelial Cells 0, Urine Sperm (Auto) 06/10/18 22:43: Blood Gas Bicarbonate Standard 20.1, Venous Blood pH 7.325L, Venous Blood Partial Pressure CO2 39.6, Venous Blood Partial Pressure O2 92.6H, Venous Blood Total Carbon Dioxide 21.4L, Venous Blood HCO3 20.2L, Venous Blood Oxygen Saturation 96.9H, Venous Blood Base Excess -5.4L, Osmolality 332H 06/10/18 23:48: Bedside Glucose (Misc Panel) 554*H 06/11/18 01:05: Anion Gap 7L, Glomerular Filtration Rate 47.5L, Blood Urea Nitrogen 16, Creatinine 1.25, Sodium Level 138, Potassium Level 4.1#, Chloride Level 107, Carbon Dioxide Level 24, Calcium Level 7.9L 06/11/18 02:16: Bedside Glucose (Misc Panel) 383H 06/11/18 03:57: Bedside Glucose (Misc Panel) 218H 06/11/18 05:27: Nucleated Red Blood Cells % (auto) 0.0, Anion Gap 3L, Glomerular Filtration Rate > 60.0, Calcium Level 8.2L, Aspartate Amino Transf (AST/SGOT) 91H, Alanine Aminotransferase (ALT/SGPT) 194H, Alkaline Phosphatase 145H, Total Bilirubin 0.3, Direct Bilirubin < 0.1, Total Protein 5.4L, Albumin 2.4L, Albumin/Globulin Ratio 0.80L 06/11/18 06:12: Bedside Glucose (Misc Panel) 79 06/11/18 06:51: Bedside Glucose (Misc Panel) 50L 06/11/18 07:20: Bedside Glucose (Misc Panel) 89 06/11/18 08:11: Bedside Glucose (Misc Panel) 177H 06/11/18 09:53: Bedside Glucose (Misc Panel) 234H 06/11/18 11:32: Bedside Glucose (Misc Panel) 161H CBC/BMP Laboratory Tests 06/10/18 22:37 Calcium Level 7.7 L 06/11/18 01:05 Calcium Level 7.9 L 06/11/18 05:27 Red Blood Count 3.41 L, Mean Corpuscular Volume 94.7, Mean Corpuscular Hemoglobin 31.4, Mean Corpuscular Hemoglobin Concent 33.1, Red Cell Distribution Width 12.6 LINDSAY HANLEY MD June 11, 2018 12:24
[2018-06-11] MEDS ORDERED: NALOXONE INJ 0.4 MG/1 ML VIAL (J2310) IV PRN (13:15)
[2018-06-11] MEDS ORDERED: oxyCODONE 10 MG CR TAB PO ONE (13:30)
[2018-06-11 14:00] VITALS: BP 133/69
[2018-06-11 18:00] VITALS: BP 156/81
[2018-06-11] MEDS: oxyCODONE 5MG TAB PO PRN (18:35)
[2018-06-11] MEDS: DESVENLAFAXINE ER 50 MG TABLET (PRISTIQ) PO SCH (21:51)
[2018-06-11] MEDS: MONTELUKAST 10 MG TAB PO SCH (21:51)
[2018-06-11] MEDS: hydrOXYzine 25 MG TAB PO SCH (21:51)
[2018-06-11] MEDS: oxyCODONE 10 MG CR TAB PO SCH (21:52)
[2018-06-11] MEDS: LEVEMIR (INSULIN DETEMIR) 1 UNITS/0.01ML SC SCH (21:53)
[2018-06-11] MEDS: ENOXAPARIN 40 MG/0.4 ML SYRINGE (J1650) SC SCH (21:53)
[2018-06-11 22:00] VITALS: BP 117/74
[2018-06-12 02:00] VITALS: BP 121/76
[2018-06-12] MEDS: HumaLOG INSULIN (NovoLOG) PER UNIT SC SCH ×6 (02:00→22:00)
[2018-06-12 06:00] VITALS: BP 121/70
[2018-06-12 06:32] LABS: HEMATOCRIT 34.3 % (36.0-47.0); HEMOGLOBIN 11.3 g/dl (12.0-15.5); MEAN CORPUSCULAR HEMOGLOBIN 31.9 pg (27.0-33.0); MEAN CORPUSCULAR HGB CONC 32.9 g/dl (32.0-36.5); MEAN CORPUSCULAR VOLUME 96.9 fl (80.0-96.0); PLATELET COUNT, AUTOMATED 199 10^3/uL (150-450); RED BLOOD COUNT 3.54 10^6/uL (4.00-5.40); WHITE BLOOD COUNT 7.3 10^3/uL (4.0-10.0)
[2018-06-12 07:03] LABS: ALBUMIN 2.5 GM/DL (3.2-5.2); ALT/SGPT 157 U/L (12-78); BILIRUBIN,DIRECT < 0.1 MG/DL (0.0-0.2); BILIRUBIN,TOTAL 0.2 MG/DL (0.2-1.0); BLOOD UREA NITROGEN 14 MG/DL (7-18); CARBON DIOXIDE LEVEL 30 MEQ/L (21-32); CHLORIDE LEVEL 111 MEQ/L (98-107); CREATININE FOR GFR 0.77 MG/DL (0.55-1.30); GLOMERULAR FILTRATION RATE > 60.0 (>51); GLUCOSE, FASTING 85 MG/DL (70-100); SODIUM LEVEL 143 MEQ/L (136-145); TOTAL PROTEIN 5.7 GM/DL (6.4-8.2)
[2018-06-12] MEDS: clonazePAM 1 MG TAB PO SCH ×3 (08:51→21:35)
[2018-06-12] MEDS: ATORVASTATIN 20 MG TAB PO SCH (08:51)
[2018-06-12] MEDS: PREGABALIN 50 MG CAP (LYRICA) PO SCH ×2 (08:52→21:34)
[2018-06-12] MEDS: SUCRALFATE 1 GM TAB PO SCH ×2 (08:52→21:35)
[2018-06-12] MEDS: oxyCODONE 10 MG CR TAB PO SCH ×2 (08:52→21:35)
[2018-06-12] MEDS: METOCLOPRAMIDE 10 MG TAB PO SCH ×4 (08:52→21:34)
[2018-06-12] MEDS: PANTOPRAZOLE 40MG INJ (PROTONIX) (C9113) IV SCH ×2 (08:52→21:28)
[2018-06-12] MEDS: ASPIRIN 81 MG ENTERIC TAB PO SCH (08:52)
[2018-06-12] MEDS: LEVEMIR (INSULIN DETEMIR) 1 UNITS/0.01ML SC SCH ×2 (08:53→21:35)
[2018-06-12 10:00] VITALS: BP 144/76
[2018-06-12] MEDS: oxyCODONE 5MG TAB PO PRN ×3 (10:27→18:53)
[2018-06-12 14:00] VITALS: BP 118/67
--- NOTE | 2018-06-12 18:55 | IPNPDOC ---
Date Seen The patient was seen on 06/12/18. Progress Note SUBJECTIVE: Pt's pain is tolerable on the oxycodone, but was sleepy during the interview. She is nervous about discharge today, and requested dc on Friday. No episodes of hyperglycemia GENERAL APPEARANCE: She looks well rested, comfortable. She is not jaundiced. Pupils equal, round, reactive to light. Tympanic membranes (TMs) normal. Pharynx showed dry mucous membranes. NECK: Supple. LUNGS: Clear. HEART: Without murmur. ABDOMEN: Soft. Tender right upper quadrant. No guarding, rebound, or referred pain. EXTREMITIES: No clubbing, cyanosis, or edema. Normal strength in the arms and legs. Good distal pulses. LABORATORY DATA, imaging studies: pls see below microbiology: reviewed Diabetic ketoacidosis (DKA)/Brittle DM with episodes of hypo/hyperglycemia s/p insulin drip per DKA protocol, every hour fingersticks, every 4-hour basic metabolic panels (BMPs).on levemir titrated for better control and lispro. consistent carbs diet. transfer to [facility] Stress ulcer prophylaxis with intravenous (IV) Protonix ordered. Deep vein thrombosis (DVT) prophylaxis with Lovenox has been ordered. Transaminitis with gallbladder sludge s/p ERCP s/p cholecystectomy. Her bilirubin is normal and alkaline phosphatase essentially normal. View of her past history shows her liver functions tend to always bump when she is in DKA. MRCP reviewed. GI consulted pt underwent ERCP 06/10/18 with balloon sweep. prn pain meds. History of depression. Continue her antidepressant with Pristiq. Avoid serotonin and norepinephrine reuptake inhibitors (SNRI) withdrawal. We are going to continue trazodone 50 mg before bedtime. History of upper gastrointestinal (GI) bleeding in the past. Continue Protonix. I have ordered IV for stress ulcer prophylaxis. Continue Carafate. History of asthma. Continue Singulair 10 mg daily and nebulized bronchodilator. Hyperlipidemia. Continue atorvastatin 20 mg daily. History of hypertension. Hold her antihypertensives. Blood pressure is only 90 systolic. We will hydrate her. She will probably need to have these restarted once she is back to normal volume status. History of diabetic neuropathy. Continue gabapentin 800 mg three times a day. Anxiety/depression. She is on Klonopin, which we will continue to avoid withdrawal symptoms. Mental status is normal, so I think it is okay to continue this. History of celiac disease. Continue a gluten-free diet. History of transient ischemic attacks (TIA). Hold her aspirin until her DKA has abated, then restart aspirin for thromboembolic prophylaxis. History of obstructive sleep apnea (JERAD). Continue continuous positive airway pressure (CPAP). She may use her home CPAP for this. disposition:pending control of DM and abd pain A-FIB/CHADSVASC A-FIB History Current/History of A-Fib/PAF?: No Current Oral Anticoagulant The: No VS, I&O, 24H, Fishbone Vital Signs/I&O Vital Signs Date Time Temp Pulse Resp B/P (MAP) Pulse Ox O2 Delivery O2 Flow Rate FiO2 06/12/18 15:22 16 06/12/18 14:00 97.6 91 118/67 (84) 93 06/10/18 15:04 2 06/08/18 17:10 Room Air I&O- Last 24 Hours up to 6 AM 06/12/18 06:00 Intake Total 2250 ml Output Total 2100 ml Balance 150 ml Laboratory Data 24H LABS Laboratory Tests 2 06/11/18 20:43: Bedside Glucose (Misc Panel) 185H 06/12/18 01:33: Bedside Glucose (Misc Panel) 59L 06/12/18 02:00: Bedside Glucose (Misc Panel) 47L 06/12/18 02:32: Bedside Glucose (Misc Panel) 60L 06/12/18 03:41: Bedside Glucose (Misc Panel) 159H 06/12/18 05:49: Bedside Glucose (Misc Panel) 81 06/12/18 06:14: Nucleated Red Blood Cells % (auto) 0.0, Anion Gap 2L, Glomerular Filtration Rate > 60.0, Calcium Level 8.0L, Aspartate Amino Transf (AST/SGOT) 49H, Alanine Aminotransferase (ALT/SGPT) 157H, Alkaline Phosphatase 138H, Total Bilirubin 0.2, Direct Bilirubin < 0.1, Total Protein 5.7L, Albumin 2.5L, Albumin/Globulin Ratio 0.78L 06/12/18 10:22: Bedside Glucose (Misc Panel) 119H 06/12/18 14:46: Bedside Glucose (Misc Panel) 183H 06/12/18 18:29: Bedside Glucose (Misc Panel) 124H CBC/BMP Laboratory Tests 06/12/18 06:14 Red Blood Count 3.54 L, Mean Corpuscular Volume 96.9 H, Mean Corpuscular Hemoglobin 31.9, Mean Corpuscular Hemoglobin Concent 32.9, Red Cell Distribution Width 13.2 LINDSAY HANLEY MD June 12, 2018 18:55
[2018-06-12] MEDS: ENOXAPARIN 40 MG/0.4 ML SYRINGE (J1650) SC SCH (21:29)
[2018-06-12] MEDS: hydrOXYzine 25 MG TAB PO SCH (21:34)
[2018-06-12] MEDS: MONTELUKAST 10 MG TAB PO SCH (21:34)
[2018-06-12] MEDS: DESVENLAFAXINE ER 50 MG TABLET (PRISTIQ) PO SCH (21:35)
[2018-06-12 22:00] VITALS: BP 132/67
[2018-06-13] MEDS: HumaLOG INSULIN (NovoLOG) PER UNIT SC SCH ×6 (02:00→22:00)
[2018-06-13 05:47] LABS: HEMATOCRIT 32.5 % (36.0-47.0); HEMOGLOBIN 10.8 g/dl (12.0-15.5); MEAN CORPUSCULAR HEMOGLOBIN 32.3 pg (27.0-33.0); MEAN CORPUSCULAR HGB CONC 33.2 g/dl (32.0-36.5); MEAN CORPUSCULAR VOLUME 97.3 fl (80.0-96.0); PLATELET COUNT, AUTOMATED 200 10^3/uL (150-450); RED BLOOD COUNT 3.34 10^6/uL (4.00-5.40); WHITE BLOOD COUNT 7.4 10^3/uL (4.0-10.0)
[2018-06-13 06:00] VITALS: BP 124/71
[2018-06-13 06:22] LABS: ALBUMIN 2.4 GM/DL (3.2-5.2); ALT/SGPT 122 U/L (12-78); BILIRUBIN,DIRECT < 0.1 MG/DL (0.0-0.2); BILIRUBIN,TOTAL 0.1 MG/DL (0.2-1.0); BLOOD UREA NITROGEN 12 MG/DL (7-18); CARBON DIOXIDE LEVEL 33 MEQ/L (21-32); CHLORIDE LEVEL 109 MEQ/L (98-107); CREATININE FOR GFR 0.72 MG/DL (0.55-1.30); GLOMERULAR FILTRATION RATE > 60.0 (>51); GLUCOSE, FASTING 103 MG/DL (70-100); SODIUM LEVEL 144 MEQ/L (136-145); TOTAL PROTEIN 5.5 GM/DL (6.4-8.2)
[2018-06-13] MEDS: ASPIRIN 81 MG ENTERIC TAB PO SCH (08:09)
[2018-06-13] MEDS: ATORVASTATIN 20 MG TAB PO SCH (08:09)
[2018-06-13] MEDS: SUCRALFATE 1 GM TAB PO SCH ×2 (08:09→22:10)
[2018-06-13] MEDS: METOCLOPRAMIDE 10 MG TAB PO SCH ×4 (08:09→22:09)
[2018-06-13] MEDS: PREGABALIN 50 MG CAP (LYRICA) PO SCH ×2 (08:09→22:09)
[2018-06-13] MEDS: clonazePAM 1 MG TAB PO SCH ×3 (08:09→22:09)
[2018-06-13] MEDS: oxyCODONE 10 MG CR TAB PO SCH ×2 (08:10→22:09)
[2018-06-13] MEDS: PANTOPRAZOLE 40MG INJ (PROTONIX) (C9113) IV SCH ×2 (08:10→21:58)
[2018-06-13] MEDS ORDERED: LEVEMIR (INSULIN DETEMIR) 1 UNITS/0.01ML SC SCH ×2 (09:00→21:00)
--- NOTE | 2018-06-13 09:33 | IPNPDOC ---
Date Seen The patient was seen on 06/13/18. Progress Note SUBJECTIVE: Discharge postponed due to hypoglycemia this morning 25-28. levemir insulin reduced with holding parameters. pt had diaphoresis and palpitations. feels better later in the morning and able to eather breakfast. OBJECTIVE: GENERAL APPEARANCE: vitals: pls see below gen: She looks well rested, comfortable. She is not jaundiced. Pupils equal, round, reactive to light. Tympanic membranes (TMs) normal. Pharynx showed dry mucous membranes. NECK: Supple. LUNGS: Clear. HEART: Without murmur. ABDOMEN: Soft. Tender right upper quadrant. No guarding, rebound, or referred pain. EXTREMITIES: No clubbing, cyanosis, or edema. Normal strength in the arms and legs. Good distal pulses. LABORATORY DATA, imaging studies: pls see below microbiology: reviewed Diabetic ketoacidosis (DKA)/Brittle DM with episodes of hypo/hyperglycemia s/p insulin drip per DKA protocol, every hour fingersticks, every 4-hour basic metabolic panels (BMPs).on levemir titrated for better control and lispro. consistent carbs diet. transfer to [facility] Stress ulcer prophylaxis with intravenous (IV) Protonix ordered. Deep vein thrombosis (DVT) prophylaxis with Lovenox has been ordered. Transaminitis with gallbladder sludge s/p ERCP s/p cholecystectomy. Her bilirubin is normal and alkaline phosphatase essentially normal. View of her past history shows her liver functions tend to always bump when she is in DKA. MRCP reviewed. GI consulted pt underwent ERCP 06/10/18 with balloon sweep. prn pain meds. History of depression. Continue her antidepressant with Pristiq. Avoid serotonin and norepinephrine reuptake inhibitors (SNRI) withdrawal. We are going to continue trazodone 50 mg before bedtime. History of upper gastrointestinal (GI) bleeding in the past. Continue Protonix. I have ordered IV for stress ulcer prophylaxis. Continue Carafate. History of asthma. Continue Singulair 10 mg daily and nebulized bronchodilator. Hyperlipidemia. Continue atorvastatin 20 mg daily. History of hypertension. Hold her antihypertensives. Blood pressure is only 90 systolic. We will hydrate her. She will probably need to have these restarted once she is back to normal volume status. History of diabetic neuropathy. Continue gabapentin 800 mg three times a day. Anxiety/depression. She is on Klonopin, which we will continue to avoid withdrawal symptoms. Mental status is normal, so I think it is okay to continue this. History of celiac disease. Continue a gluten-free diet. History of transient ischemic attacks (TIA). Hold her aspirin until her DKA has abated, then restart aspirin for thromboembolic prophylaxis. History of obstructive sleep apnea (JERAD). Continue continuous positive airway pressure (CPAP). She may use her home CPAP for this. disposition:pending control of DM and abd pain A-FIB/CHADSVASC A-FIB History Current/History of A-Fib/PAF?: No Current Oral Anticoagulant The: No VS, I&O, 24H, Fishbone Vital Signs/I&O Vital Signs Date Time Temp Pulse Resp B/P (MAP) Pulse Ox O2 Delivery O2 Flow Rate FiO2 06/12/18 22:00 98.0 78 16 132/67 (88) 95 06/10/18 15:04 2 06/08/18 17:10 Room Air I&O- Last 24 Hours up to 6 AM 06/13/18 06:00 Intake Total 1350 ml Output Total 1200 ml Balance 150 ml Laboratory Data 24H LABS Laboratory Tests 2 06/12/18 06:14: Nucleated Red Blood Cells % (auto) 0.0, Anion Gap 2L, Glomerular Filtration Rate > 60.0, Calcium Level 8.0L, Aspartate Amino Transf (AST/SGOT) 49H, Alanine Aminotransferase (ALT/SGPT) 157H, Alkaline Phosphatase 138H, Total Bilirubin 0.2, Direct Bilirubin < 0.1, Total Protein 5.7L, Albumin 2.5L, Albumin/Globulin Ratio 0.78L 06/12/18 10:22: Bedside Glucose (Misc Panel) 119H 06/12/18 14:46: Bedside Glucose (Misc Panel) 183H 06/12/18 18:29: Bedside Glucose (Misc Panel) 124H 06/12/18 21:50: Bedside Glucose (Misc Panel) 144H 06/13/18 01:53: Bedside Glucose (Misc Panel) 26*L 06/13/18 01:56: Bedside Glucose (Misc Panel) 24*L 06/13/18 02:13: Bedside Glucose Confirm (Misc) 39*L 06/13/18 02:14: Bedside Glucose (Misc Panel) 37*L 06/13/18 02:28: Bedside Glucose (Misc Panel) 96 06/13/18 05:33: Nucleated Red Blood Cells % (auto) 0.0 CBC/BMP Laboratory Tests 06/12/18 06:14 Red Blood Count 3.54 L, Mean Corpuscular Volume 96.9 H, Mean Corpuscular Hemoglobin 31.9, Mean Corpuscular Hemoglobin Concent 32.9, Red Cell Distribution Width 13.2 06/13/18 05:33 Red Blood Count 3.34 L, Mean Corpuscular Volume 97.3 H, Mean Corpuscular Hemoglobin 32.3, Mean Corpuscular Hemoglobin Concent 33.2, Red Cell Distribution Width 13.2 LINDSAY HANLEY MD June 13, 2018 06:05
[2018-06-13] MEDS: oxyCODONE 5MG TAB PO PRN ×2 (11:29→17:38)
[2018-06-13 14:00] VITALS: BP_SYST 105; BP_SYST 145; BP_DIAS 58; BP_DIAS 74
[2018-06-13] MEDS: ENOXAPARIN 40 MG/0.4 ML SYRINGE (J1650) SC SCH (21:58)
[2018-06-13 22:00] VITALS: BP 107/55
[2018-06-13] MEDS: hydrOXYzine 25 MG TAB PO SCH (22:09)
[2018-06-13] MEDS: MONTELUKAST 10 MG TAB PO SCH (22:09)
[2018-06-13] MEDS: DESVENLAFAXINE ER 50 MG TABLET (PRISTIQ) PO SCH (22:09)
[2018-06-14] MEDS: HumaLOG INSULIN (NovoLOG) PER UNIT SC SCH ×2 (02:04→06:00)
[2018-06-14 05:47] LABS: HEMATOCRIT 34.2 % (36.0-47.0); HEMOGLOBIN 11.3 g/dl (12.0-15.5); MEAN CORPUSCULAR HEMOGLOBIN 31.5 pg (27.0-33.0); MEAN CORPUSCULAR VOLUME 95.3 fl (80.0-96.0); PLATELET COUNT, AUTOMATED 220 10^3/uL (150-450); RED BLOOD COUNT 3.59 10^6/uL (4.00-5.40); WHITE BLOOD COUNT 6.2 10^3/uL (4.0-10.0)
[2018-06-14 06:00] VITALS: BP 112/61
[2018-06-14 06:16] LABS: BLOOD UREA NITROGEN 18 MG/DL (7-18); CALCIUM LEVEL 8.3 MG/DL (8.5-10.1); CARBON DIOXIDE LEVEL 31 MEQ/L (21-32); CHLORIDE LEVEL 108 MEQ/L (98-107); CREATININE FOR GFR 0.83 MG/DL (0.55-1.30); GLOMERULAR FILTRATION RATE > 60.0 (>51); GLUCOSE, FASTING 106 MG/DL (70-100); POTASSIUM SERUM 3.7 MEQ/L (3.5-5.1); SODIUM LEVEL 143 MEQ/L (136-145)
[2018-06-14] MEDS ORDERED: OXYCO5TA PO ×2 (06:47→06:49)
[2018-06-14] MEDS: PANTOPRAZOLE 40MG INJ (PROTONIX) (C9113) IV SCH (08:39)
[2018-06-14] MEDS: SUCRALFATE 1 GM TAB PO SCH (08:39)
[2018-06-14] MEDS: PREGABALIN 50 MG CAP (LYRICA) PO SCH (08:39)
[2018-06-14] MEDS: oxyCODONE 10 MG CR TAB PO SCH (08:39)
[2018-06-14] MEDS: METOCLOPRAMIDE 10 MG TAB PO SCH (08:39)
[2018-06-14] MEDS: ATORVASTATIN 20 MG TAB PO SCH (08:39)
[2018-06-14] MEDS: ASPIRIN 81 MG ENTERIC TAB PO SCH (08:39)
[2018-06-14] MEDS: clonazePAM 1 MG TAB PO SCH (08:39)
[2018-06-14] MEDS ORDERED: LEVEMIR (INSULIN DETEMIR) 1 UNITS/0.01ML SC SCH (09:00)
--- NOTE | 2018-06-14 14:09 | IPNPDOC ---
Date Seen The patient was seen on 06/14/18. Progress Note SUBJECTIVE: Discharge yesterday was postponed due to hypoglycemia. levemir insulin reduced with holding parameters. pt had diaphoresis and palpitations. Overnight, pt had no episodes of hypoglycemia. She has passed HSE and denies any nausea or vomiting. Tolerating her food. OBJECTIVE: GENERAL APPEARANCE: vitals: pls see below gen: She looks well rested, comfortable. She is not jaundiced. Pupils equal, round, reactive to light. Tympanic membranes (TMs) normal. Pharynx showed dry mucous membranes. NECK: Supple. LUNGS: Clear. HEART: Without murmur. ABDOMEN: Soft. Tender right upper quadrant. No guarding, rebound, or referred pain. EXTREMITIES: No clubbing, cyanosis, or edema. Normal strength in the arms and legs. Good distal pulses. LABORATORY DATA, imaging studies: pls see below microbiology: reviewed Diabetic ketoacidosis (DKA)/Brittle DM with episodes of hypo/hyperglycemia s/p insulin drip per DKA protocol, every hour fingersticks, every 4-hour basic metabolic panels (BMPs).on levemir titrated for better control and lispro. consistent carbs diet. transfer to [facility] [place] [facility] Stress ulcer prophylaxis with intravenous (IV) Protonix ordered. Deep vein thrombosis (DVT) prophylaxis with Lovenox has been ordered. Transaminitis with gallbladder sludge s/p ERCP s/p cholecystectomy. Her bilirubin is normal and alkaline phosphatase essentially normal. View of her past history shows her liver functions tend to always bump when she is in DKA. MRCP reviewed. GI consulted pt underwent ERCP 06/10/18 with balloon sweep. prn pain meds. History of depression. Continue her antidepressant with Pristiq. Avoid serotonin and norepinephrine reuptake inhibitors (SNRI) withdrawal. We are going to continue trazodone 50 mg before bedtime. History of upper gastrointestinal (GI) bleeding in the past. Continue Protonix. I have ordered IV for stress ulcer prophylaxis. Continue Carafate. History of asthma. Continue Singulair 10 mg daily and nebulized bronchodilator. Hyperlipidemia. Continue atorvastatin 20 mg daily. History of hypertension. Hold her antihypertensives. Blood pressure is only 90 systolic. We will hydrate her. She will probably need to have these restarted once she is back to normal volume status. History of diabetic neuropathy. Continue gabapentin 800 mg three times a day. Anxiety/depression. She is on Klonopin, which we will continue to avoid withdrawal symptoms. Mental status is normal, so I think it is okay to continue this. History of celiac disease. Continue a gluten-free diet. History of transient ischemic attacks (TIA). Hold her aspirin until her DKA has abated, then restart aspirin for thromboembolic prophylaxis. History of obstructive sleep apnea (JERAD). Continue continuous positive airway pressure (CPAP). She may use her home CPAP for this. disposition: dc home today. A-FIB/CHADSVASC A-FIB History Current/History of A-Fib/PAF?: No Current Oral Anticoagulant The: No VS, I&O, 24H, Fishbone Vital Signs/I&O Vital Signs Date Time Temp Pulse Resp B/P (MAP) Pulse Ox O2 Delivery O2 Flow Rate FiO2 06/14/18 06:00 96.9 72 16 112/61 (78) 94 06/10/18 15:04 2 06/08/18 17:10 Room Air I&O- Last 24 Hours up to 6 AM 06/14/18 06:00 Intake Total 2040 ml Output Total 1375 ml Balance 665 ml Laboratory Data 24H LABS Laboratory Tests 2 06/13/18 08:09: Bedside Glucose (Misc Panel) 112H 06/13/18 10:04: Bedside Glucose (Misc Panel) 159H 06/13/18 14:48: Bedside Glucose (Misc Panel) 124H 06/13/18 17:59: Bedside Glucose (Misc Panel) 134H 06/13/18 21:48: Bedside Glucose (Misc Panel) 283H 06/14/18 01:51: Bedside Glucose (Misc Panel) 410H 06/14/18 04:12: Bedside Glucose (Misc Panel) 183H 06/14/18 05:21: Nucleated Red Blood Cells % (auto) 0.0, Anion Gap 4L, Glomerular Filtration Rate > 60.0, Blood Urea Nitrogen 18, Creatinine 0.83, Sodium Level 143, Potassium Level 3.7, Chloride Level 108H, Carbon Dioxide Level 31, Calcium Level 8.3L 06/14/18 05:42: Bedside Glucose (Misc Panel) 92 CBC/BMP Laboratory Tests 06/14/18 05:21 Red Blood Count 3.59 L, Mean Corpuscular Volume 95.3, Mean Corpuscular Hemoglobin 31.5, Mean Corpuscular Hemoglobin Concent 33.0, Red Cell Distribution Width 12.8, Calcium Level 8.3 L LINDSAY HANLEY MD June 14, 2018 06:47
--- NOTE | 2018-06-14 14:18 | DS.PDOC ---
Discharge Summary General Date of Admission Jun 08, 2018 at 15:54 Date of Discharge June 14, 2018 Discharge Summary RETAIL PRICING COORDINATOR: SAM HENRY PROCEDURES: ERCP WITH PAPILLOTOMY AND BALLOON SWEEP BILIARY SPHINCTEROTOMY MRCP DISCHARGE DIAGNOSES: DKA BILIARY SLUDGE S/P BILIARY SPHINCTEROTOMY History of depression. History of upper gastrointestinal (GI) bleeding in the past. History of asthma. Hyperlipidemia. History of hypertension. History of diabetic neuropathy. Anxiety/depression. History of celiac disease. History of transient ischemic attacks (TIA). History of obstructive sleep apnea (JERAD) DISCHARGE MEDICATIONS: PLS SEE BELOW HISTORY OF PRESENTING ILLNESS: This is a 52-year-old white female who was admitted to [facility] in diabetic ketoacidosis (DKA). The patient has a long history of diabetes. She has intermittent bouts of liver function elevation. Meantime, she is admitted for DKA, and treated in the ICU until acidosis and anion gap normalized. She continue to c/o ruq and epigastric abdominal pain, necessitating GI consultation. MRCP and gall bladder us: sludge. The patient relates over the past year, she has had intermittent bouts of abdominal pain. She denies any current fevers, night sweats or shaking chills. She had episodes of vomiting, but none since she has been admitted and her diabetes has become under control. She has had a previous admission 2018. The patient was seen by Dr. Cornelius under similar circumstances where the liver functions were elevated .. The magnetic resonance cholangiopancreatography (MRCP) does not show any choledocholithiasis, but does show chronic significant biliary dilatation. The radiologist's interpretation of the most recent MRCP suggests a cut off of the distal biliary tract without evidence of it obviously tapering. He is concerned of a possible intraductal filling defect, either of stones, debris or gravel. This could not be ascertained completely by the MRCP. The previous HIDA scan by Dr. Cornelius in 2018 showed patency of the biliary tract. In light of the patient's total bilirubin, this would also be significant for patency of the duct. However, the patient has again been admitted for the somewhere abnormalities with pain, epigastric to right upper quadrant. The patient and I discussed the situation and we would like to proceed with a possible endoscopic retrograde cholangiopancreatography (ERCP) with possible papillotomy to possibly decompress the biliary tract to see whether this improves any of her episodic bouts of abdominal pain. The patient has had gastric sleeve operation approximately four years ago. She has lost 80 pounds since that time. She is status post cholecystectomy. 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 consistent carbs diet. transfer to [facility] Stress ulcer prophylaxis with intravenous (IV) Protonix ordered. Deep vein thrombosis (DVT) prophylaxis with Lovenox has been ordered. Transaminitis with gallbladder sludge s/p ERCP s/p cholecystectomy. Her bilirubin is normal and alkaline phosphatase essentially normal. View of her past history shows her liver functions tend to always bump when she is in DKA. MRCP reviewed. GI consulted pt underwent ERCP 06/10/18 with balloon sweep. prn pain meds. History of depression. Continue her antidepressant with Pristiq. Avoid serotonin and norepinephrine reuptake inhibitors (SNRI) withdrawal. We are going to continue trazodone 50 mg before bedtime. History of upper gastrointestinal (GI) bleeding in the past. Continue Protonix. I have ordered IV for stress ulcer prophylaxis. Continue Carafate. History of asthma. Continue Singulair 10 mg daily and nebulized bronchodilator. Hyperlipidemia. Continue atorvastatin 20 mg daily. History of hypertension. Hold her antihypertensives. Blood pressure is only 90 systolic. We will hydrate her. She will probably need to have these restarted once she is back to normal volume status. History of diabetic neuropathy. Continue gabapentin 800 mg three times a day. Anxiety/depression. She is on Klonopin, which we will continue to avoid withdrawal symptoms. Mental status is normal, so I think it is okay to continue this. History of celiac disease. Continue a gluten-free diet. History of transient ischemic attacks (TIA). Hold her aspirin until her DKA has abated, then restart aspirin for thromboembolic prophylaxis. History of obstructive sleep apnea (JERAD). Continue continuous positive airway pressure (CPAP). She may use her home CPAP for this. disposition: ct home today. GENERAL APPEARANCE: vitals: pls see below gen: She looks well rested, comfortable. She is not jaundiced. Pupils equal, round, reactive to light. Tympanic membranes (TMs) normal. Pharynx showed dry mucous membranes. NECK: Supple. LUNGS: Clear. HEART: Without murmur. ABDOMEN: Soft. nontender. + bowel sounds. No guarding, rebound, or referred pain. EXTREMITIES: No clubbing, cyanosis, or edema. Normal strength in the arms and legs. Good distal pulses. LABORATORY DATA, imaging studies: pls see below microbiology: reviewed TIME SPENT ON DISCHARGE: 30 MINUTES Vital Signs/I&Os Vital Signs Date Time Temp Pulse Resp B/P (MAP) Pulse Ox O2 Delivery O2 Flow Rate FiO2 06/14/18 08:39 16 06/14/18 06:00 96.9 72 112/61 (78) 94 06/10/18 15:04 2 06/08/18 17:10 Room Air I&O- Last 24 Hours up to 6 AM 06/14/18 06:00 Intake Total 2040 ml Output Total 1375 ml Balance 665 ml Laboratory Data Labs 24H Laboratory Tests 2 06/13/18 14:48: Bedside Glucose (Misc Panel) 124H 06/13/18 17:59: Bedside Glucose (Misc Panel) 134H 06/13/18 21:48: Bedside Glucose (Misc Panel) 283H 06/14/18 01:51: Bedside Glucose (Misc Panel) 410H 06/14/18 04:12: Bedside Glucose (Misc Panel) 183H 06/14/18 05:21: Nucleated Red Blood Cells % (auto) 0.0, Anion Gap 4L, Glomerular Filtration Rate > 60.0, Blood Urea Nitrogen 18, Creatinine 0.83, Sodium Level 143, Potassium Level 3.7, Chloride Level 108H, Carbon Dioxide Level 31, Calcium Level 8.3L 06/14/18 05:42: Bedside Glucose (Misc Panel) 92 CBC/BMP Laboratory Tests 06/14/18 05:21 Red Blood Count 3.59 L, Mean Corpuscular Volume 95.3, Mean Corpuscular Hemoglobin 31.5, Mean Corpuscular Hemoglobin Concent 33.0, Red Cell Distribution Width 12.8, Calcium Level 8.3 L FSBS Laboratory Tests Test 06/13/18 14:48 06/13/18 17:59 06/13/18 21:48 06/14/18 01:51 Range/Units Bedside Glucose (Misc Panel) 124 134 283 410 70-105 MG/DL Test 06/14/18 04:12 06/14/18 05:42 Range/Units Bedside Glucose ([facility]) 183 92 70-105 MG/DL Discharge Medications Scheduled Ammonium Lactate (Ammonium Lactate) 12 % Cre, 1 DOSE TOP DAILY, (Reported) APPLY TO FEET Aspirin (Aspirin EC) 81 Mg Tabec, 81 MG PO DAILY, (Reported) Atorvastatin Calcium (Atorvastatin Calcium) 20 Mg Tablet, 20 MG PO DAILY, (Reported) Cholecalciferol (Vitamin D3) (Vitamin D3) 1,000 Unit Tab, 1,000 UNIT PO DAILY, (Reported) Clonazepam (Clonazepam) 1 Mg Tablet, 1 MG PO TID, (Reported) Desvenlafaxine Succinate (Pristiq) 50 Mg Tab, 50 MG PO QHS, (Reported) Dulaglutide (Trulicity) 1.5 Mg/0.5 Ml Inj, 1.5 MG SC QWEEK, (Reported) TAKES ON WEDNESDAYS Ergocalciferol (Vitamin D2) (Drisdol) 50,000 Unit Capsule, 50,000 UNIT PO QWEEK, (Reported) WEDNESDAYS Ferrous Sulfate (Ferrous Sulfate) 325 Mg Tab, 325 MG PO DAILY, (Reported) Hydroxyzine HCl (Hydroxyzine HCl) 25 Mg Tablet, 25 MG PO QHS, (Reported) Insulin Detemir (Levemir) 100 Unit/1 Ml Vial, 20 UNITS SC QAM, (Reported) Insulin Detemir (Levemir) 100 Unit/1 Ml Vial, 18 UNITS SC QHS, (Reported) Insulin Human Lispro (Humalog) 1 Units/0.01 Ml Inj, 1 DOSE SC AC, (Reported) PER SLIDING SCALE Inulin (Fiber Gummies) 2 Gm Tab.chew, 1 CHW PO TID, (Reported) Lisinopril (Lisinopril) 10 Mg Tab, 10 MG PO DAILY, (Reported) Loratadine (Loratadine) 10 Mg Tab, 10 MG PO QHS, (Reported) Metoclopramide HCl (Reglan) 10 Mg Tab, 10 MG PO ACHS, (Reported) Montelukast Sodium (Montelukast Sodium) 10 Mg Tab, 10 MG PO QHS, (Reported) Multivitamins (Thera M Plus Tablet) 1 Tab Tab, 1 TAB PO DAILY, (Reported) Omeprazole (Omeprazole) 40 Mg Capsule.dr, 40 MG PO BID, (Reported) Pregabalin (Lyrica) 50 Mg Capsule, 50 MG PO BID, (Reported) Ramelteon (Rozerem) 8 Mg Tablet, 8 MG PO QHS, (Reported) Sucralfate (Sucralfate) 1 Gm Tablet, 1 GM PO BID, (Reported) Tizanidine HCl (Tizanidine HCl) 4 Mg Tablet, 4 MG PO TID, (Reported) Varenicline (Chantix) 1 Mg Tablet, 1 MG PO BID, (Reported) Vitamin B Complex (Vitamin B Complex) 1 Each Tablet, 1 TAB PO DAILY, (Reported) [Bariatric Fusion] , 1 CHEW PO TID, (Reported) Scheduled PRN Albuterol Sulfate (Ventolin Hfa) 108 Mcg/Act Aer, 2 PUFFS INH Q4H PRN for SHORTNESS OF BREATH, (Reported) Docusate Sodium (Colace) 100 Mg Cap, 100 MG PO BID PRN for CONSTIPATION, (Reported) Glucagon,Human Recombinant (Glucagon Emergency Kit) 1 Mg Kit, 1 MG IM for LOW BLOOD SUGAR, (Reported) Lidocaine (Lidocaine) 120 Gm Oint...g., 1 APLCT TOP DAILY PRN for BACK PAIN, (Reported) Onabotulinumtoxina (Botox) 200 Unit Vial, 200 UNIT INJ Q3M PRN for MIGRAINE, (Reported) Ondansetron (Ondansetron Odt) 8 Mg Tab, 8 MG PO BID PRN for NAUSEA, (Reported) Oxycodone HCl (Oxycodone HCl) 5 Mg Tablet, 5 MG PO Q4HP PRN for PAIN Oxycodone HCl/Acetaminophen (Oxycodone-Acetaminophen 5-325) 1 Each Tablet, 1 TAB PO BID PRN for PAIN, (Reported) Polyethylene Glycol 3350 (Miralax) 119 Gm Powder, 17 GM PO DAILY PRN for CONSTIPATION, (Reported) dilute in 8 ounces of water or juice Propranolol HCl (Propranolol HCl) 20 Mg Tablet, 20 MG PO TID PRN for ANXIETY, (Reported) Propylene Glycol/Peg 400 (Systane 0.3-0.4% Eye Drops) 15 Ml Sade, 1 DROP OU QID PRN for DRY EYES, (Reported) Sennosides/Docusate Sodium (Docusate Sodium-Senna Tablet) 1 Tab Tab, 1 TAB PO BID PRN for CONSTIPATION, (Reported) Sodium Chloride ([place]) 0.65 % Spr, 2 SPRAY NA QID PRN for NASAL DRYNESS, (Reported) EACH NOSTRIL Sumatriptan Succinate (Sumatriptan Succinate) 6 Mg/0.5 Ml Inj, 6 MG SC ASDIRECTED PRN for MIGRAINE, (Reported) MDD = 12 MG FOR 24 HOURS Trazodone HCl (Trazodone HCl) 50 Mg Tablet, 1 TAB PO QHS PRN for SLEEP, (Reported) Allergies Coded Allergies: TAPE (Verified Allergy, Mild, PLASTIC TAPE- RASH, 09/26/17) BANDAIDS -RASH prednisone (Verified Adverse Reaction, Intermediate, EXTREME ELEVATED BLOOD SUGAR, 06/08/18) Gluten Flour (Verified Adverse Reaction, Mild, diarrhea, 09/26/17) gluten (Verified Adverse Reaction, Mild, DIARRHEA, 06/08/18) LINDSAY HANLEY MD June 14, 2018 14:06
== END 2018-06-14 09:30 | disposition home or self-care (01) | DRG 639 ==
LOC: M ED 08:14 → M ED INP 15:54 → M ICU 17:48 → M MS4PR 06-09 16:51 → M MSPAV 06-10 16:41
PROVIDERS: ADMIT Family Medicine; ATTEND General Practice
PROC: 0FC98ZZ Extirpation of Matter from Common Bile Duct, Via Natural or Artificial Opening Endoscopic (ICD-10-PCS; principal; 2018-06-10 12:45)
DX: E10.10 Type 1 diabetes mellitus with ketoacidosis without coma (principal); R74.0 Nonspecific elevation of levels of transaminase and lactic acid dehydrogenase [LDH]; E10.40 Type 1 diabetes mellitus with diabetic neuropathy, unspecified; K90.0 Celiac disease; I11.9 Hypertensive heart disease without heart failure; J45.909 Unspecified asthma, uncomplicated; G47.33 Obstructive sleep apnea (adult) (pediatric); F32.9 Major depressive disorder, single episode, unspecified; E78.5 Hyperlipidemia, unspecified; Z86.73 Personal history of transient ischemic attack (TIA), and cerebral infarction without residual deficits; K83.8 Other specified diseases of biliary tract; F41.9 Anxiety disorder, unspecified; Z79.899 Other long term (current) drug therapy; Z79.82 Long term (current) use of aspirin; Z79.4 Long term (current) use of insulin; Z88.8 Allergy status to other drugs, medicaments and biological substances

== ENCOUNTER 2018-06-15 09:11 | Observation (INO) | payer MEDICARE, MEDICAID ==
[~2018-06-15] VITALS: Ht 162.6 cm; Wt 70.0 kg
[2018-06-15] MEDS: ENOXAPARIN 40 MG/0.4 ML SYRINGE (J1650) SC SCH (09:00)
[~2018-06-15 09:11] MED LIST changes: +ATOR1TAB21 PO; +B COTAB3 PO; +BARIATRIC FUSION PO; +BOTO200I INJ; +CLON1TAB8 PO; +CVS1CHW13 PO; +DRIS50003 PO; +HYDR-3363 PO; +LIDO5OIN19 TOP; +MIRA3350 PO; +OXYCO5TA PO; +PANT40TA3 PO; +PREG50CA PO; +SUCR1TAB56 PO; +SUMA6KIT SC; +TIZA4TAB4 PO; +TRAZ-160 PO; +VARE1TA PO
[2018-06-15] MEDS ORDERED: clonazePAM 1 MG TAB PO ONE (10:15)
[2018-06-15 10:21] LABS: ABG BASE EXCESS -0.8 (-2.0-2.0); ABG O2 SATURATION 94.2 % (95.0-99.0); ABG PARTIAL PRESSURE CO2 40.4 mmHg (35.0-45.0); ABG PARTIAL PRESSURE O2 71.1 mmHg (75.0-100.0); ABG STANDARD HCO3 23.7 MEQ/L (22.0-26.0); ABG TOTAL CO2 25.3 MEQ/L (22.0-29.0); ABG pH (ARTERIAL) 7.392 UNITS (7.350-7.450)
--- NOTE | 2018-06-15 10:39 | REP ---
Head CT without contrast: History: Dizziness. Comparison study: Comparison brain MRI study is from January 13, 2018. CT findings: Bone window settings demonstrate an intact bony calvarium. There is no evidence of skull fracture or incidental bony calvarial lesion. The visualized paranasal sinuses appear clear. No intraorbital abnormality is seen. On soft tissue window setting images; the lateral, third, and fourth ventricles are normal in size and position. Manuel-white differentiation pattern is normal above and below the tentorium. There are is no evidence of intracranial hemorrhage. No mass, edema, infarction, or midline shift is seen. No extra-axial fluid collection is appreciated. Impression: Negative noncontrast head CT. Electronically Signed by Noe Faith MD 06/15/2018 10:31 A
[2018-06-15 11:04] LABS: BASO # 0.1 10^3/uL (0.0-0.2); BASO % 1.2 % (0.0-1.0); EOS # 0.3 10^3/uL (0.0-0.50); EOS % 3.1 % (0.0-3.0); HEMATOCRIT 34.8 % (36.0-47.0); HEMOGLOBIN 11.8 g/dl (12.0-15.5); LYMPH # 1.3 10^3/uL (1.5-4.5); LYMPH % 14.4 % (24.0-44.0); MEAN CORPUSCULAR HEMOGLOBIN 32.5 pg (27.0-33.0); MEAN CORPUSCULAR HGB CONC 33.9 g/dl (32.0-36.5); MEAN CORPUSCULAR VOLUME 95.9 fl (80.0-96.0); MONO # 0.4 10^3/uL (0.0-0.8); MONO % 4.2 % (0.0-5.0); NEUTROPHILS # 6.6 10^3/uL (1.8-7.7); NEUTROPHILS % 76.6 % (36.0-66.0); PLATELET COUNT, AUTOMATED 218 10^3/uL (150-450); RED BLOOD COUNT 3.63 10^6/uL (4.00-5.40); WHITE BLOOD COUNT 8.7 10^3/uL (4.0-10.0)
[2018-06-15 11:18] LABS: INR 0.92; PROTHROMBIN TIME 12.5 SECONDS (12.1-14.4)
[2018-06-15 11:19] LABS: PARTIAL THROMBOPLASTIN TIME 27.9 SECONDS (25.4-37.6)
[2018-06-15] MEDS: NS 1,000 ML IV SCH ×2 (11:22→18:11)
--- NOTE | 2018-06-15 11:24 | REP ---
CHEST, TWO VIEWS: There is no evidence of acute infiltrate. No pleural effusion is seen. The heart is normal in size. The mediastinal silhouette is unremarkable. The visualized osseous structures are intact. IMPRESSION: No acute pulmonary disease. Electronically Signed by Ahsan Manuel MD 06/16/2018 03:02 P
[2018-06-15 11:33] LABS: ACETONE/KETONE 32.63 MG/DL (<2.81); ALT/SGPT 158 U/L (12-78); BILIRUBIN,DIRECT 0.1 MG/DL (0.0-0.2); BILIRUBIN,TOTAL 0.4 MG/DL (0.2-1.0); BLOOD UREA NITROGEN 20 MG/DL (7-18); CARBON DIOXIDE LEVEL 27 MEQ/L (21-32); CHLORIDE LEVEL 96 MEQ/L (98-107); CPK CREATINE PHOSPHOKINASE 78 U/L (26-192); CREATININE FOR GFR 0.98 MG/DL (0.55-1.30); GLOMERULAR FILTRATION RATE > 60.0 (>51); GLUCOSE, FASTING 639 MG/DL (70-100); LIPASE 85 U/L (73-393); MAGNESIUM LEVEL 2.1 MG/DL (1.8-2.4); MB/CK RELATIVE INDEX 3.46 (< OR =4); PHOSPHORUS LEVEL 3.8 MG/DL (2.5-4.9); POTASSIUM SERUM 4.6 MEQ/L (3.5-5.1); SODIUM LEVEL 132 MEQ/L (136-145); TOTAL PROTEIN 6.3 GM/DL (6.4-8.2); TROPONIN I < 0.02 NG/ML (< 0.10)
[2018-06-15] MEDS ORDERED: ONDANSETRON 4MG/2ML VIAL (J2405) IV PRN (11:45)
[2018-06-15] MEDS: MORPHINE 2 MG/ML 1ML SYRINGE (J2270) IV PRN ×2 (11:47→16:42)
[2018-06-15] MEDS ORDERED: HumuLIN R (REGULAR) INSULIN (NovoLIN R) **100U/ML** PER UNIT IV ONE (12:15)
[2018-06-15] MEDS ORDERED: ISOVUE-370 76% 100ML VIAL (Q9967) As Ordered ONE (12:20)
--- NOTE | 2018-06-15 14:35 | REP ---
REASON: Right upper quadrant pain. COMPARISON: Multiple, the latest 06/08/2018, which showed mild biliary dilatation status post cholecystectomy. CONTRAST: 100 mL of Isovue 370. The lungs bases are clear and unchanged. Minimal basilar subsegmental atelectatic change is noted. The intrahepatic ductal dilatation seen on the prior exam has abated. The liver is normal in appearance. Surgical clips are again seen in the gallbladder fossa from previous cholecystectomy. There is no change in the appearance of the spleen, pancreas, adrenal glands, or kidneys. Left upper quadrant postoperative change from prior bariatric surgery noted status quo. The bowel loops and their mesenteries are essentially unchanged and again seen to be within normal limits. No free fluid or free air is seen in the abdomen. The abdominal aorta and para-aortic regions are unchanged and again seen to be within normal limits. CT PELVIS: The bowel loops and their mesenteries are essentially unchanged and again seen to be within normal limits. There is a trace amount of free pelvic fluid, which is unchanged. There is a surgical clip deep in the pelvis, status quo. There is no change in the osseous structures. IMPRESSION: 1. The biliary dilatation seen on the prior exam has abated. 2. There is no evidence of acute intra-abdominal or intrapelvic disease. Findings as described above. Electronically Signed by Klever Carrasco DO 06/15/2018 04:37 P
[2018-06-15] MEDS ORDERED: MIRALAX *UNIT DOSE* 17GM PACKET PO PRN (15:00)
[2018-06-15] MEDS ORDERED: DOCUSATE SODIUM 100 MG CAP PO PRN (15:00)
[2018-06-15] MEDS ORDERED: traZODone 50 MG TAB PO PRN (15:00)
[2018-06-15] MEDS ORDERED: POLYVINYL ALCOHOL OPHTH SOLN 15 ML(LIQUITEARS) OU PRN (15:00)
[2018-06-15] MEDS ORDERED: SODIUM CHLORIDE NASAL 0.65% SPRAY BTL (OCEAN) PRN (15:00)
[2018-06-15] MEDS ORDERED: SUMAtriptan SUCCINATE 6 MG/0.5 ML VIAL SC PRN (15:00)
[2018-06-15] MEDS ORDERED: SENOKOT S TAB PO PRN (15:00)
[2018-06-15] MEDS ORDERED: ALBUTEROL 90 MCG/ACT 8GM HFA INHALER INH PRN (15:00)
[2018-06-15] MEDS ORDERED: PERCOCET 5MG/325MG TAB PO PRN (15:00)
[2018-06-15] MEDS ORDERED: ONDANSETRON 4 MG ORAL DISINTEGRATING TAB (Q0162 PER 1MG) PO PRN (15:00)
[2018-06-15] MEDS ORDERED: DEXTROSE 50% 50 ML SYRINGE IV PRN (15:15)
[2018-06-15] MEDS ORDERED: GLUCAGON FOR INJ 1 MG VIAL (J1610) SC PRN (15:15)
[2018-06-15] MEDS ORDERED: GLUCOSE 4 GM CHEW TABLET PO PRN (15:15)
[2018-06-15] MEDS ORDERED: PROPRANOLOL 20 MG TAB PO PRN (16:00)
[2018-06-15 16:50] VITALS: BP 139/66
--- NOTE | 2018-06-15 17:10 | HPE ---
DATE OF ADMISSION: 06/15/2018 PRIMARY CARE PROVIDER: Reji Fenton MD CHIEF COMPLAINT: High blood sugar and right upper quadrant pain. HISTORY OF PRESENT ILLNESS: The patient is a 52-year-old female who was actually discharged from the hospital yesterday morning after being admitted June 04 to June 14. During that stay, she did presented with a diabetic ketoacidosis (DKA) which was treated. She was found to have biliary sludge and was seen by Dr. Subramanian who did an endoscopic retrograde cholangiopancreatography (ERCP) with papillotomy and balloon sweep with biliary sphincterotomy. She tolerated her procedure well and had persistent elevations in liver function tests, tolerated a diet and was cleared by physical therapy and was dispositioned to home. At the time of her discharge, her blood glucose was well controlled. Her pain was well controlled. Upon arriving at home the patient's mother states the patient began to have some gait instability associated with worsening right upper quadrant pain. It persisted and the patient checked her blood sugar in the afternoon without having anything to eat other than her breakfast in the hospital and her blood glucose was greater than 600. She took some insulin and it came down to 500. She slept for much of the evening, woke up, had macaroni and butter. Went and took her regular nightly insulin, went back to sleep, woke up this morning with fingerstick greater than 600 and persistent right upper quadrant abdominal pain prompting her to present to the emergency room once again. Upon her arrival here, she is noted to have elevated blood glucose of 639. She is hyponatremic and hypochloremic. Liver function tests (LFTs) do appear to be mildly more elevated than previously with an AST going from 47 to 113 overnight and ALT 122 to 158. She denies any alcohol use, illicit drug use. SUBJECTIVE: The patient complains of headache as well as persistent right upper quadrant pain which she has had since her discharge. She denies chest pressure, shortness of breath, nausea or vomiting. PAST MEDICAL HISTORY: 1. Diabetes. 2. Hypertensive heart disease. 3. Depression. 4. Anxiety. 5. Dyslipidemia. 6. Celiac disease. 7. Hiatal hernia status post Gretchen fundoplication. 8. Gastric sleeve. 9. Transient ischemic attack (TIA). 10. Asthma. 11. History of a gastrointestinal (GI) bleed in the past. 12. Obstructive sleep apnea on continuous positive airway pressure (CPAP). PAST SURGICAL HISTORY: 1. section times two. 2. Hysterectomy. 3. Appendectomy. 4. Cholecystectomy. 5. Gretchen fundoplication. 6. Gastric sleeve. 7. Open reduction and internal fixation of a tibia/fibula fracture in 2015. SOCIAL HISTORY: She is an active smoker. Denies alcohol use. She tells me that she is fairly active. She lives with her mother and grandson. She is a FULL CODE. ALLERGIES: GLUTEN FLOUR, TAPE, PREDNISONE which causes elevated blood glucose in the past. HOME MEDICATIONS: - atorvastatin 20 mg daily - vitamin D2 - 50,000 units once a week - glucagon emergency kit as needed low blood sugar - Levemir 18 units subcutaneously at bedtime - insulin subcutaneously before a meal (a.c.) - Trulicity 1.5 mg subcutaneously weekly - Inulin fiber gummies 2 grams one chewable by mouth three times a day - lidocaine ointment for back pain - Botox 200 units every 2 - 3 months as needed migraine - propranolol 20 mg three times a day as needed anxiety - Carafate 1 gram by mouth twice a day - tizanidine 4 mg by mouth three times a day - vitamin B complex bariatric fusion chewable 1 tablet by mouth three times a day - Ventolin HFA 108 mcg 2 puffs inhaled every 4 hours as needed shortness of breath - ammonium lactate 12% cream topically daily - aspirin 81 mg daily - vitamin D3 - 1000 units daily - clonazepam 1 mg by mouth three times a day - Pristiq 50 mg at bedtime - Colace 100 mg by mouth twice a day as needed constipation - ferrous sulfate 325 mg daily - hydroxyzine 25 mg at bedtime - Levemir 20 units every morning - lisinopril 10 mg by mouth daily - loratadine 10 mg at bedtime - Reglan 10 mg by mouth before a meal (a.c.) and at bedtime (h.s.) - Singulair 10 mg at bedtime - multivitamin 1 tablet daily - omeprazole 40 mg twice a day - Zofran 8 mg twice a day as needed nausea - oxycodone 5 mg every 4 hours as needed pain - Percocet 5/325 twice a day as needed pain - MiraLAX 17 grams daily as needed constipation - Lyrica 50 mg by mouth twice a day - Systane eye drops both eyes four times a day as needed dry eyes - Rozerem 8 mg by mouth at bedtime - docusate sodium Senna tablet 1 tablet by mouth twice a day as needed constipation - [place] spray 0.065% 2 sprays nasally four times a day as needed nasal dryness - sumatriptan 6 mg injections as directed as needed migraines - trazodone 50 mg at bedtime as needed sleep - Chantix 1 mg by mouth twice a day FAMILY HISTORY: Family history is noncontributory. REVIEW OF SYSTEMS: A 10-point review of systems was completed and negative other than in the history of present illness. OBJECTIVE: VITAL SIGNS: Temperature 98.4, heart rate 77, respiratory rate 20, blood pressure 141/67, oxygen saturation 97% on room air. GENERAL: She is an older woman lying in the stretcher with her knees up. She does not appear to be in any acute distress whatsoever. HEENT: Cranial nerves II - XII are grossly intact. She has moist mucous membranes. No elevation of central venous pressure. CARDIOVASCULAR: S1, S2, regular. RESPIRATORY: Fairly clear. ABDOMEN: Bowel sounds are present. The abdomen is soft. There appears to be pain out of proportion to palpation in the right upper quadrant. EXTREMITIES: No clubbing, cyanosis, or edema. LABORATORY STUDIES: White blood cell (WBC) 8.7, hemoglobin 11.8 unchanged from her most recent values while hospitalized, platelet count 218. Chemistry panel: Sodium 132 down from 143 yesterday, potassium 4.6, chloride 96, bicarbonate 27, BUN 20, creatinine 0.9, fasting glucose 639. AST 113 up from 47, ALT 158 up from 122, alkaline phosphatase 169 up from 129. Lipase within normal limits. INR is 0.92. A urinalysis (UA) is 3+ for glucose, 1+ for ketones. She does have elevated beta-hydroxybutyrate today at 32.6. A repeat blood glucose after receiving 7 units of insulin is 476. IMAGING: The patient did have a CT scan of her head during this visit in the emergency room that revealed a negative noncontrast study. She also had a chest x-ray that revealed no acute pulmonary disease and a CT scan of the abdomen and pelvis that revealed that the biliary dilatation that was seen previously on the prior exam had abated. No evidence of any acute intra-abdominal or intrapelvic disease. ASSESSMENT AND PLAN: This is a 52-year-old female with hyperglycemia and persistent right upper quadrant pain. PROBLEMS: 1. Hyperglycemia. The etiology is not immediately clear. Certainly, she could have secondary cause for hyperglycemia such as persistent infection; however, this does not appear to be the case. She is afebrile. She is not tachycardic. There is no leukocytosis. She has had a recent procedure in the right upper quadrant. I have reached out to Dr. Subramanian of gastroenterology who will see the patient in consultation tomorrow morning. She did receive 7 units of regular insulin in the emergency room and her blood glucose appears to be responding appropriately. It was strange that she took additional insulin at home and her blood glucose did not respond there. Given that she is a brittle diabetic and has had frequent episodes of hypoglycemia I will not provide any further insulin other than her normal regimen and our inpatient sliding scale. I will provide her with a consistent carbohydrate, gluten-free 2 gram sodium diet. Admitted to the observation service. Lipase is negative. I will just trend her troponin. I will check blood cultures to ensure there are no other secondary etiologies for her hyperglycemia. I suspect however that it may be secondary to noncompliance or nonadherence if she is not taking her medications correctly given how quickly she was able to respond to it here. The CT scan does not appear to have any acute pathology. I do not think that she has cholangitis and as such at this time I will hold off on any antibiotics. The patient is admitted to observation status on the medical surgical floor. Otherwise, her home medications will be continued with close observation. She will be provided with her regular migraine and pain medication and will be hydrated. We will repeat laboratories on her tomorrow morning to re-evaluate for her hyponatremia which is likely pseudo as well as her hyperchloremia which is possibly some mild dehydration secondary to osmotic diuresis. I suspect these should be improved tomorrow.
[2018-06-15] MEDS: METOCLOPRAMIDE 10 MG TAB PO SCH ×2 (18:11→21:11)
[2018-06-15] MEDS: tiZANidine 4 MG TAB PO SCH ×2 (18:11→21:11)
[2018-06-15] MEDS: HumaLOG INSULIN (NovoLOG) PER UNIT SC SCH ×2 (18:12→21:00)
[2018-06-15] MEDS ORDERED: RAMELTEON 8 MG TAB (ROZEREM) PO PRN (21:00)
[2018-06-15] MEDS ORDERED: hydrOXYzine 25 MG TAB PO SCH (21:00)
[2018-06-15] MEDS: DESVENLAFAXINE ER 50 MG TABLET (PRISTIQ) PO SCH (21:00)
[2018-06-15] MEDS: VARENICLINE 1 MG TABLET PO SCH (21:00)
[2018-06-15] MEDS ORDERED: RAMELTEON 8 MG TAB (ROZEREM) PO SCH (21:00)
[2018-06-15] MEDS: clonazePAM 1 MG TAB PO SCH (21:11)
[2018-06-15] MEDS: SUCRALFATE 1 GM TAB PO SCH (21:11)
[2018-06-15] MEDS: LORATADINE 10 MG TAB PO SCH (21:11)
[2018-06-15] MEDS: PREGABALIN 50 MG CAP (LYRICA) PO SCH (21:11)
[2018-06-15] MEDS: MONTELUKAST 10 MG TAB PO SCH (21:11)
[2018-06-15] MEDS: OMEPRAZOLE 20 MG CAP PO SCH (21:12)
[2018-06-15] MEDS: LEVEMIR (INSULIN DETEMIR) 1 UNITS/0.01ML SC SCH (21:12)
[2018-06-15 22:00] VITALS: BP 123/69
--- NOTE | 2018-06-15 22:07 | ECGEPIP ---
Stationary ECG Study [facility] - ED Test Date: 2018-06-15 Pat Name: ANA SCHWAB Department: Room: - Gender: F Hospice Nurse: anitra : 1965 Requested By: DEEDEE Olvera Order Number: [id number] Reading MD: Pete Mahmood Measurements Intervals [place] Rate: 61 P: 50 IN: 195 QRS: 41 QRSD: 87 T: 50 QT: 420 QTc: 426 Interpretive Statements SINUS RHYTHM WITH SINUS ARRHYTHMIA FIRST DEGREE AV BLOCK SIMILAR TO 01/12/18 Electronically Signed On 06-15-2018 22:07:38 EDT by Pete Mahmood
[2018-06-16] MEDS: NS 1,000 ML IV SCH ×4 (00:30→20:45)
[2018-06-16] MEDS: oxyCODONE 5MG TAB PO PRN ×2 (04:07→10:56)
[2018-06-16 06:00] VITALS: BP 157/83
[2018-06-16 06:49] LABS: ALBUMIN 2.7 GM/DL (3.2-5.2); ALT/SGPT 112 U/L (12-78); BILIRUBIN,TOTAL 0.2 MG/DL (0.2-1.0); BLOOD UREA NITROGEN 14 MG/DL (7-18); CALCIUM LEVEL 8.2 MG/DL (8.5-10.1); CARBON DIOXIDE LEVEL 27 MEQ/L (21-32); CHLORIDE LEVEL 109 MEQ/L (98-107); CREATININE FOR GFR 0.78 MG/DL (0.55-1.30); GLOMERULAR FILTRATION RATE > 60.0 (>51); GLUCOSE, FASTING 167 MG/DL (70-100); POTASSIUM SERUM 3.8 MEQ/L (3.5-5.1); SODIUM LEVEL 140 MEQ/L (136-145); TOTAL PROTEIN 5.9 GM/DL (6.4-8.2)
[2018-06-16] MEDS: HumaLOG INSULIN (NovoLOG) PER UNIT SC SCH ×4 (07:30→21:00)
[2018-06-16] MEDS: ENOXAPARIN 40 MG/0.4 ML SYRINGE (J1650) SC SCH (08:01)
[2018-06-16] MEDS: ASPIRIN 81 MG ENTERIC TAB PO SCH (08:01)
[2018-06-16] MEDS: MULTIVITAMINS/MINERALS THERAP 1 TAB PO SCH (08:01)
[2018-06-16] MEDS: METOCLOPRAMIDE 10 MG TAB PO SCH ×4 (08:01→22:06)
[2018-06-16] MEDS: OMEPRAZOLE 20 MG CAP PO SCH ×2 (08:01→22:07)
[2018-06-16] MEDS: SUCRALFATE 1 GM TAB PO SCH ×2 (08:01→22:06)
[2018-06-16] MEDS: FERROUS SULFATE 325MG TAB PO SCH (08:01)
[2018-06-16] MEDS: VITAMIN D 1,000 INTERNATIONAL UNITS TABLET PO SCH (08:01)
[2018-06-16] MEDS: VARENICLINE 1 MG TABLET PO SCH ×2 (08:01→22:06)
[2018-06-16] MEDS: tiZANidine 4 MG TAB PO SCH ×3 (08:01→22:06)
[2018-06-16] MEDS: PREGABALIN 50 MG CAP (LYRICA) PO SCH ×2 (08:01→22:06)
[2018-06-16] MEDS: LISINOPRIL 10 MG TAB PO SCH (08:02)
[2018-06-16] MEDS: clonazePAM 1 MG TAB PO SCH ×3 (08:02→22:05)
[2018-06-16] MEDS: LACTIC ACID 12% LOTION 225 GM BTL TOP SCH (08:14)
[2018-06-16] MEDS ORDERED: LEVEMIR (INSULIN DETEMIR) 1 UNITS/0.01ML SC SCH (09:00)
--- NOTE | 2018-06-16 10:06 | REP ---
PORTABLE CHEST X-RAY: Single view. HISTORY: Cough. COMPARISON STUDY: June 15, 2018. FINDINGS: The lungs are well inflated and clear. Pleural angles are sharp. Heart size is normal. Pulmonary vasculature is not increased. No significant bony abnormality is seen. IMPRESSION: No active disease. Electronically Signed by Noe Faith MD 06/16/2018 10:45 A
[2018-06-16 14:00] VITALS: BP 141/75
--- NOTE | 2018-06-16 18:58 | IPNPDOC ---
Date Seen The patient was seen on 06/16/18. Progress Note SUBJECTIVE: Patient continues to cough. CXR negative. Brittle. State she's complaint to DM diet at home. Continue to monitor. OBJECTIVE PHYSICAL EXAMINATION: VITAL SIGNS: Please see below GENERAL APPEARANCE: Resting comfortably HEENT: Normocephalic, PERRLA, Mucous moist, CARDIOVASCULAR: S1,S2, pulse present, regularly, regular LUNGS: Equal air entry b/l, no wheezes or crackle ABDOMEN: Soft, BS present, no tenderness, no guarding EXTREMITIES: B/L no edema, capillary refill present SKIN: Warm, No fever NEUROLOGICAL: Cranial nerves grossly intact PSYCHIATRIC: Normal mood and affect for current situation LABORATORY DATA, IMAGING STUDIES, MICROBIOLOGY: Please see below. ASSESSMENT AND PLAN: 52-year-old female who was actually discharged from the hospital after being admitted June 04 to June 14. During that stay, she did presented with a diabetic ketoacidosis (DKA) which was treated. She was found to have biliary sludge and was seen by Dr. Subramanian who did an endoscopic retrograde cholangiopancreatography (ERCP) with papillotomy and balloon sweep with biliary sphincterotomy. She tolerated her procedure well and had persistent elevations in liver function tests, tolerated a diet and was cleared by physical therapy and was disposition to home. At the time of her discharge, her blood glucose was well controlled. Her pain was well controlled. Upon arriving at home the patient's mother states the patient began to have some gait instability associated with worsening right upper quadrant pain. It persisted and the patient checked her blood sugar in the afternoon without having anything to eat other than her breakfast in the hospital and her blood glucose was greate r than 600. She took some insulin and it came down to 500. She slept for much of the evening, woke up, had macaroni and butter. Went and took her regular nightly insulin, went back to sleep, woke up this morning with fingerstick greater than 600 and persistent right upper quadrant abdominal pain prompting her to present to the emergency room once again 52-year-old female with hyperglycemia and persistent right upper quadrant pain. Hyperglycemia. The etiology is not immediately clear. Brittle diabetic with hypoglycemia and hyperglycemia -Endoscopic retrograde cholangiopancreatography (ERCP) with papillotomy and balloon sweep with biliary sphincterotomyt by Dr. Subramanian of gastroenterology recently -Communicated with Dr. Subramanian. s/p evaluation by Dr. Subramanian: No new recommendation other than DM treatment. -Outpatient follow up and may d/c from his stand point -Given that she is a brittle diabetic and has had frequent episodes of hypoglycemia I will not provide any further insulin other than her normal regimen and our inpatient sliding scale. Patient states she is complaint to DM regimen and is difficult to control her sugar. She has try different insulin regimen without significant improvement. She is able to better control and treat her hypo/hyperglycemia with current regimen. - consistent carbohydrate, gluten-free 2 gram sodium diet. -hx Hiatal hernia status post Gretchen fundoplication. -hx Gastric sleeve. -No acute sign of infxn -Ct head:Negative noncontrast head CT. -CXR:No acute pulmonary disease. Repeat CXR:No active disease. -CT abdomen:The biliary dilatation seen on the prior exam has abated. There is no evidence of acute intra-abdominal or intrapelvic disease -lipase nml -Blood cx pending result Transaminitis -Dr. Subramanian. s/p evaluation by Dr. Subramanian: No new recommendation other than DM treatment. Improved with glycemic control Hypertensive heart disease. Resume home regimen Depression. Resume home regimen Anxiety. Resume home regimen Dyslipidemia. Resume home regimen Celiac disease. Resume home regimen Transient ischemic attack (TIA). Resume home regimen Asthma.Resume home regimen History of a gastrointestinal (GI) bleed in the past. Resume home regimen Obstructive sleep apnea on continuous positive airway pressure (CPAP).Resume home regimen DVT proph with Lovenox VS, I&O, 24H, Fishbone Vital Signs/I&O Vital Signs Date Time Temp Pulse Resp B/P (MAP) Pulse Ox O2 Delivery O2 Flow Rate FiO2 06/16/18 14:00 97.5 60 16 141/75 (97) 95 06/15/18 09:12 Room Air I&O- Last 24 Hours up to 6 AM 06/16/18 06:00 Intake Total 2970 ml Output Total 1700 ml Balance 1270 ml Laboratory Data 24H LABS Laboratory Tests 2 06/15/18 20:20: Bedside Glucose (Misc Panel) 235H 06/16/18 04:08: Bedside Glucose (Misc Panel) 58L 06/16/18 04:41: Bedside Glucose (Misc Panel) 100 06/16/18 05:31: Anion Gap 4L, Glomerular Filtration Rate > 60.0, Blood Urea Nitrogen 14, Creatinine 0.78, Sodium Level 140#, Potassium Level 3.8, Chloride Level 109H, Carbon Dioxide Level 27, Calcium Level 8.2L, Aspartate Amino Transf (AST/SGOT) 59H, Alanine Aminotransferase (ALT/SGPT) 112H, Alkaline Phosphatase 146H, Total Bilirubin 0.2, Total Protein 5.9L, Albumin 2.7L, Albumin/Globulin Ratio 0.84L 06/16/18 11:21: Bedside Glucose (Misc Panel) 149H 06/16/18 16:47: Bedside Glucose (Misc Panel) 124H CBC/BMP Laboratory Tests 06/16/18 05:31 Calcium Level 8.2 L, Aspartate Amino Transf (AST/SGOT) 59 H, Alanine Aminotransferase (ALT/SGPT) 112 H, Alkaline Phosphatase 146 H, Total Bilirubin 0.2, Total Protein 5.9 L, Albumin 2.7 L Microbiology Microbiology 06/15/18 Blood Culture, Received Pending 06/15/18 Blood Culture - Preliminary, Resulted No growth after 24 hours . All specim... JANICE VILLAGOMEZ MD June 16, 2018 18:58
[2018-06-16] MEDS: LEVEMIR (INSULIN DETEMIR) 1 UNITS/0.01ML SC SCH (21:00)
[2018-06-16 22:00] VITALS: BP 140/78
[2018-06-16] MEDS: DESVENLAFAXINE ER 50 MG TABLET (PRISTIQ) PO SCH (22:05)
[2018-06-16] MEDS: LORATADINE 10 MG TAB PO SCH (22:06)
[2018-06-16] MEDS: MONTELUKAST 10 MG TAB PO SCH (22:06)
[2018-06-17] MEDS: NS 1,000 ML IV SCH ×2 (03:09→09:00)
[2018-06-17 06:00] VITALS: BP 160/80
[2018-06-17 06:46] LABS: ALBUMIN 2.9 GM/DL (3.2-5.2); ALT/SGPT 112 U/L (12-78); BILIRUBIN,TOTAL 0.2 MG/DL (0.2-1.0); BLOOD UREA NITROGEN 10 MG/DL (7-18); CALCIUM LEVEL 8.3 MG/DL (8.5-10.1); CARBON DIOXIDE LEVEL 28 MEQ/L (21-32); CHLORIDE LEVEL 112 MEQ/L (98-107); CREATININE FOR GFR 0.69 MG/DL (0.55-1.30); GLOMERULAR FILTRATION RATE > 60.0 (>51); GLUCOSE, FASTING 68 MG/DL (70-100); POTASSIUM SERUM 3.7 MEQ/L (3.5-5.1); SODIUM LEVEL 143 MEQ/L (136-145); TOTAL PROTEIN 6.1 GM/DL (6.4-8.2)
[2018-06-17] MEDS: HumaLOG INSULIN (NovoLOG) PER UNIT SC SCH (07:01)
[2018-06-17 07:46] VITALS: BP 160/80
[2018-06-17] MEDS: MULTIVITAMINS/MINERALS THERAP 1 TAB PO SCH (07:46)
[2018-06-17] MEDS: ENOXAPARIN 40 MG/0.4 ML SYRINGE (J1650) SC SCH (07:46)
[2018-06-17] MEDS: METOCLOPRAMIDE 10 MG TAB PO SCH (07:46)
[2018-06-17] MEDS: clonazePAM 1 MG TAB PO SCH (07:46)
[2018-06-17] MEDS: ASPIRIN 81 MG ENTERIC TAB PO SCH (07:46)
[2018-06-17] MEDS: FERROUS SULFATE 325MG TAB PO SCH (07:46)
[2018-06-17] MEDS: LISINOPRIL 10 MG TAB PO SCH (07:46)
[2018-06-17] MEDS: SUCRALFATE 1 GM TAB PO SCH (07:49)
[2018-06-17] MEDS: VITAMIN D 1,000 INTERNATIONAL UNITS TABLET PO SCH (07:49)
[2018-06-17] MEDS: OMEPRAZOLE 20 MG CAP PO SCH (07:49)
[2018-06-17] MEDS: tiZANidine 4 MG TAB PO SCH (07:49)
[2018-06-17] MEDS: PREGABALIN 50 MG CAP (LYRICA) PO SCH (07:49)
[2018-06-17] MEDS: LACTIC ACID 12% LOTION 225 GM BTL TOP SCH (07:49)
[2018-06-17] MEDS: VARENICLINE 1 MG TABLET PO SCH (07:52)
[2018-06-17] MEDS ORDERED: LEVEMIR (INSULIN DETEMIR) 1 UNITS/0.01ML SC SCH ×2 (09:00→21:00)
[2018-06-17] MEDS ORDERED: LEVEMIR (INSULIN DETEMIR) 1 UNITS/0.01ML SC ONE (09:00)
--- NOTE | 2018-06-17 10:46 | DS.PDOC ---
Discharge Summary General Date of Admission June 15, 2018 at 14:36 Date of Discharge 06/17/18 Discharge Summary PROCEDURES PERFORMED DURING STAY: [None]. ADMITTING DIAGNOSES: Hyperglycemia.Brittle diabetic with hypoglycemia/hyperglycemia Transaminitis DISCHARGE DIAGNOSES: Hyperglycemia.Brittle diabetic with hypoglycemia/hyperglycemia Transaminitis Hypertensive heart disease. Depression. Anxiety. Dyslipidemia. Celiac disease. Transient ischemic attack (TIA). Asthma. History of a gastrointestinal (GI) bleed in the past. Obstructive sleep apnea on continuous positive airway pressure (CPAP). COMPLICATIONS/CHIEF COMPLAINT: Hyperglycemia. HISTORY OF PRESENT ILLNESS: [52-year-old female who was actually discharged from the hospital after being admitted June 04 to June 14. During that stay, she did presented with a diabetic ketoacidosis (DKA) which was treated. She was found to have biliary sludge and was seen by Dr. Subramanian who did an endoscopic retrograde cholangiopancreatography (ERCP) with papillotomy and balloon sweep with biliary sphincterotomy. She tolerated her procedure well and had persistent elevations in liver function tests, tolerated a diet and was cleared by physical therapy and was disposition to home. At the time of her discharge, her blood glucose was well controlled. Her pain was well controlled. Upon arriving at home the patient's mother states the patient began to have some gait instability associated with worsening right upper quadrant pain. It persisted and the patient checked her blood sugar in the afternoon without having anything to eat other than her breakfast in the hospital and her blood glucose was greater than 600. She took some insulin and it came down to 500. She slept for much of the evening, woke up, had macaroni and butter. Went and took her regular nightly insulin, went back to sleep, woke up this morning with fingerstick greater than 600 and persistent right upper quadrant abdominal pain prompting her to present to the emergency room once again]. HOSPITAL COURSE: [52-year-old female with hyperglycemia and persistent right upper quadrant pain. Patient was evaluated with imaging and lab studies. Patient was evaluated by Dr. Subramanian. Patient's hyperglycemia was treated but due to her brittle diabetic history patient had hyperglycemia with hypoglycemia. Patient had stable fingersticks with corrections made. Due to her history of brittle diabetic hypoglycemia and hyperglycemia and history of prior multiple insulin regimen changes without significance success patient was placed on her home regimen which she is able to manage. Patient again had mild hypoglycemia and hyperglycemia. Dr. Subramanian recommended follow-up as outpatient and okay to discharge as her liver function tests are trending down. Patient comfortable returning home with her regular insulin regimen knowing that she will experience hypoglycemia and hyperglycemia. Patient willing to monitor her fingerstick and adjust her oral intake accordingly. Patient has an appointment with her PCP tomorrow and appointment with Dr. Subramanian next week. Patient eager to return home today even with hyperglycemia and did not want to stay for correction. Please follow up with PCP (patient states that she has an appointment tomorrow with her PCP) and Dr. Subramanian as outpatient (patient states that she has an appointment with Dr. Subramanian next week). Please follow up with PCP regarding home medication adjustment and possible need for limitation of non-essential medication. Hyperglycemia. The etiology is not immediately clear. Brittle diabetic with hypoglycemia and hyperglycemia -Endoscopic retrograde cholangiopancreatography (ERCP) with papillotomy and balloon sweep with biliary sphincterotomyt by Dr. Subramanian of gastroenterology recently -Communicated with Dr. Subramanian. s/p evaluation by Dr. Subramanian: No new recommendation other than DM treatment. -Outpatient follow up and may d/c from his stand point -Given that she is a brittle diabetic and has had frequent episodes of hypoglycemia I will not provide any further insulin other than her normal regimen and our inpatient sliding scale. Patient agreeable to this plan as patient had insulin adjusted without success and currently feels comfortable with the current regimen that she has been on. Patient has an appointment with her PCP tomorrow. Patient wanted to return home as she is aware that she needs to monitor her fingerstick and consume snacks or utilize insulin as needed with the current regimen. - consistent carbohydrate, gluten-free 2 gram sodium diet. -hx Hiatal hernia status post Gretchen fundoplication. -hx Gastric sleeve. -No acute sign of infxn -Ct head:Negative noncontrast head CT. -CXR:No acute pulmonary disease. Repeat CXR:No active disease. -CT abdomen:The biliary dilatation seen on the prior exam has abated. There is no evidence of acute intra-abdominal or intrapelvic disease -lipase nml -Blood cx no growth to date, please follow up PCP for final report. Transaminitis -Dr. Subramanian. s/p evaluation by Dr. Subramanian: No new recommendation other than DM treatment. Improved with glycemic control Hypertensive heart disease. Resume home regimen Depression. Resume home regimen Anxiety. Resume home regimen Dyslipidemia. Resume home regimen Celiac disease. Resume home regimen Transient ischemic attack (TIA). Resume home regimen Asthma.Resume home regimen History of a gastrointestinal (GI) bleed in the past. Resume home regimen Obstructive sleep apnea on continuous positive airway pressure (CPAP).Resume home regimen]. DISCHARGE MEDICATIONS: Please see below. ALLERGIES: Please see below. PHYSICAL EXAMINATION ON DISCHARGE: VITAL SIGNS: Please see below GENERAL APPEARANCE: Resting comfortably HEENT: Normocephalic, PERRLA, Mucous moist, CARDIOVASCULAR: S1,S2, pulse present, regularly, regular LUNGS: Equal air entry b/l, no wheezes or crackle ABDOMEN: Soft, BS present, no tenderness, no guarding EXTREMITIES: B/L no edema, capillary refill present SKIN: Warm, No fever NEUROLOGICAL: Cranial nerves grossly intact PSYCHIATRIC: Normal mood and affect for current situation LABORATORY DATA: Please see below. IMAGING: [CT imaging report as above] PROGNOSIS: [Improved] ACTIVITY: [As tolerated]. DIET: [Carb consistent diet] DISPOSITION: Home DISCHARGE CONDITION: [Stable]. TIME SPENT ON DISCHARGE: Greater than [40] minutes. Vital Signs/I&Os Vital Signs Date Time Temp Pulse Resp B/P (MAP) Pulse Ox O2 Delivery O2 Flow Rate FiO2 06/17/18 07:46 160/80 06/17/18 06:59 16 06/17/18 06:00 97.1 59 99 06/15/18 09:12 Room Air I&O- Last 24 Hours up to 6 AM 06/17/18 06:00 Intake Total 3330 ml Output Total 4350 ml Balance -1020 ml Laboratory Data Labs 24H Laboratory Tests 2 06/16/18 11:21: Bedside Glucose (Misc Panel) 149H 06/16/18 16:47: Bedside Glucose (Misc Panel) 124H 06/16/18 20:54: Bedside Glucose (Misc Panel) 166H 06/17/18 05:36: Anion Gap 3L, Glomerular Filtration Rate > 60.0, Blood Urea Nitrogen 10, Creatinine 0.69, Sodium Level 143, Potassium Level 3.7, Chloride Level 112H, Carbon Dioxide Level 28, Calcium Level 8.3L, Aspartate Amino Transf (AST/SGOT) 64H, Alanine Aminotransferase (ALT/SGPT) 112H, Alkaline Phosphatase 132H, Total Bilirubin 0.2, Total Protein 6.1L, Albumin 2.9L, Albumin/Globulin Ratio 0.91L 06/17/18 06:33: Bedside Glucose (Misc Panel) 68L 06/17/18 08:47: Bedside Glucose (Misc Panel) 319H CBC/BMP Laboratory Tests 06/17/18 05:36 Calcium Level 8.3 L, Aspartate Amino Transf (AST/SGOT) 64 H, Alanine Aminotransferase (ALT/SGPT) 112 H, Alkaline Phosphatase 132 H, Total Bilirubin 0.2, Total Protein 6.1 L, Albumin 2.9 L FSBS Laboratory Tests Test 06/16/18 11:21 06/16/18 16:47 06/16/18 20:54 06/17/18 06:33 Range/Units Bedside Glucose (Misc Panel) 149 124 166 68 70-105 MG/DL Test 06/17/18 08:47 Range/Units Bedside Glucose (Misc Panel) 319 70-105 MG/DL Microbiology Microbiology 06/15/18 Blood Culture - Preliminary, Resulted No growth after 24 hours . All specim... 06/15/18 Blood Culture - Preliminary, Resulted No growth after 24 hours . All specim... Discharge Medications Scheduled Ammonium Lactate (Ammonium Lactate) 12 % Cre, 1 DOSE TOP DAILY, (Reported) APPLY TO FEET Aspirin (Aspirin EC) 81 Mg Tabec, 81 MG PO DAILY, (Reported) Atorvastatin Calcium (Atorvastatin Calcium) 20 Mg Tablet, 20 MG PO DAILY, (Reported) Cholecalciferol (Vitamin D3) (Vitamin D3) 1,000 Unit Tab, 1,000 UNIT PO DAILY, (Reported) Clonazepam (Clonazepam) 1 Mg Tablet, 1 MG PO TID, (Reported) Desvenlafaxine Succinate (Pristiq) 50 Mg Tab, 50 MG PO QHS, (Reported) Dulaglutide (Trulicity) 1.5 Mg/0.5 Ml Inj, 1.5 MG SC QWEEK, (Reported) TAKES ON WEDNESDAYS Ergocalciferol (Vitamin D2) (Drisdol) 50,000 Unit Capsule, 50,000 UNIT PO QWEEK, (Reported) WEDNESDAYS Ferrous Sulfate (Ferrous Sulfate) 325 Mg Tab, 325 MG PO DAILY, (Reported) Hydroxyzine HCl (Hydroxyzine HCl) 25 Mg Tablet, 25 MG PO QHS, (Reported) Insulin Detemir (Levemir) 100 Unit/1 Ml Vial, 20 UNITS SC QAM, (Reported) Insulin Detemir (Levemir) 100 Unit/1 Ml Vial, 18 UNITS SC QHS, (Reported) Insulin Human Lispro (Humalog) 1 Units/0.01 Ml Inj, 1 DOSE SC AC, (Reported) PER SLIDING SCALE Inulin (Fiber Gummies) 2 Gm Tab.chew, 1 CHW PO TID, (Reported) Lisinopril (Lisinopril) 10 Mg Tab, 10 MG PO DAILY, (Reported) Loratadine (Loratadine) 10 Mg Tab, 10 MG PO QHS, (Reported) Metoclopramide HCl (Reglan) 10 Mg Tab, 10 MG PO ACHS, (Reported) Montelukast Sodium (Montelukast Sodium) 10 Mg Tab, 10 MG PO QHS, (Reported) Multivitamins (Thera M Plus Tablet) 1 Tab Tab, 1 TAB PO DAILY, (Reported) Omeprazole (Omeprazole) 40 Mg Capsule.dr, 40 MG PO BID, (Reported) Pregabalin (Lyrica) 50 Mg Capsule, 50 MG PO BID, (Reported) Ramelteon (Rozerem) 8 Mg Tablet, 8 MG PO QHS, (Reported) Sucralfate (Sucralfate) 1 Gm Tablet, 1 GM PO BID, (Reported) Tizanidine HCl (Tizanidine HCl) 4 Mg Tablet, 4 MG PO TID, (Reported) Varenicline (Chantix) 1 Mg Tablet, 1 MG PO BID, (Reported) Vitamin B Complex (Vitamin B Complex) 1 Each Tablet, 1 TAB PO DAILY, (Reported) [Bariatric Fusion] , 1 CHEW PO TID, (Reported) Scheduled PRN Albuterol Sulfate (Ventolin Hfa) 108 Mcg/Act Aer, 2 PUFFS INH Q4H PRN for SHORTNESS OF BREATH, (Reported) Docusate Sodium (Colace) 100 Mg Cap, 100 MG PO BID PRN for CONSTIPATION, (Reported) Glucagon,Human Recombinant (Glucagon Emergency Kit) 1 Mg Kit, 1 MG IM PRN PRN for LOW BLOOD SUGAR, (Reported) Lidocaine (Lidocaine) 120 Gm Oint...g., 1 APLCT TOP DAILY PRN for BACK PAIN, (Reported) Onabotulinumtoxina (Botox) 200 Unit Vial, 200 UNIT INJ Q3M PRN for MIGRAINE, (Reported) Ondansetron (Ondansetron Odt) 8 Mg Tab, 8 MG PO BID PRN for NAUSEA, (Reported) Oxycodone HCl (Oxycodone HCl) 5 Mg Tablet, 5 MG PO Q4HP PRN for PAIN Oxycodone HCl/Acetaminophen (Oxycodone-Acetaminophen 5-325) 1 Each Tablet, 1 TAB PO BID PRN for PAIN, (Reported) Polyethylene Glycol 3350 (Miralax) 119 Gm Powder, 17 GM PO DAILY PRN for CONSTIPATION, (Reported) dilute in 8 ounces of water or juice Propranolol HCl (Propranolol HCl) 20 Mg Tablet, 20 MG PO TID PRN for ANXIETY, (Reported) Propylene Glycol/Peg 400 (Systane 0.3-0.4% Eye Drops) 15 Ml Sade, 1 DROP OU QID PRN for DRY EYES, (Reported) Sennosides/Docusate Sodium (Docusate Sodium-Senna Tablet) 1 Tab Tab, 1 TAB PO BID PRN for CONSTIPATION, (Reported) Sodium Chloride ([place]) 0.65 % Spr, 2 SPRAY NA QID PRN for NASAL DRYNESS, (Reported) EACH NOSTRIL Sumatriptan Succinate (Sumatriptan Succinate) 6 Mg/0.5 Ml Inj, 6 MG SC ASDIRECTED PRN for MIGRAINE, (Reported) MDD = 12 MG FOR 24 HOURS Trazodone HCl (Trazodone HCl) 50 Mg Tablet, 1 TAB PO QHS PRN for SLEEP, (Reported) Allergies Coded Allergies: TAPE (Verified Allergy, Mild, PLASTIC TAPE- RASH, 09/26/17) BANDAIDS -RASH prednisone (Verified Adverse Reaction, Intermediate, EXTREME ELEVATED BLOOD SUGAR, 06/08/18) Gluten Flour (Verified Adverse Reaction, Mild, diarrhea, 09/26/17) gluten (Verified Adverse Reaction, Mild, DIARRHEA, 06/08/18) JANICE VILLAGOMEZ MD June 17, 2018 10:46
== END 2018-06-17 11:09 | disposition home or self-care (01) ==
LOC: M ED 09:11 → M ED INP 14:36 → M MSPAV 16:49
PROVIDERS: ADMIT Internal Medicine; ATTEND Internal Medicine
DX: E11.65 Type 2 diabetes mellitus with hyperglycemia (principal); I11.9 Hypertensive heart disease without heart failure; K90.0 Celiac disease; R74.0 Nonspecific elevation of levels of transaminase and lactic acid dehydrogenase [LDH]; F41.9 Anxiety disorder, unspecified; F32.9 Major depressive disorder, single episode, unspecified; G47.33 Obstructive sleep apnea (adult) (pediatric); Z79.4 Long term (current) use of insulin; E78.5 Hyperlipidemia, unspecified; Z79.82 Long term (current) use of aspirin; Z79.899 Other long term (current) drug therapy; F17.210 Nicotine dependence, cigarettes, uncomplicated; Z88.8 Allergy status to other drugs, medicaments and biological substances
CPT/HCPCS: 36415; 36600; 70450; 71045; 71046; 74177; 80048; 80053; 80076; 81001; 82010; 82550; 82553; 82803; 83690; 83735; 84100; 84484; 85025; 85610; 85730; 87040; 93005; 93041; 96361; 96372; 96374; 96375; 96376; 99285; G0378; J1650; J2270; J2405; Q9967

== ENCOUNTER → 2018-06-23 | Outpatient (REF) | payer MEDICARE, MEDICAID ==
[~2018-06-23] MED LIST changes: -TRAZ-160 PO; +TRAZ-252 PO
[2018-06-23 13:36] LABS: BASO # 0.1 10^3/uL (0.0-0.2); BASO % 1.4 % (0.0-1.0); EOS # 0.3 10^3/uL (0.0-0.50); EOS % 4.8 % (0.0-3.0); HEMATOCRIT 42.5 % (36.0-47.0); HEMOGLOBIN 13.9 g/dl (12.0-15.5); LYMPH # 2.2 10^3/uL (1.5-4.5); LYMPH % 31.1 % (24.0-44.0); MEAN CORPUSCULAR HEMOGLOBIN 32.1 pg (27.0-33.0); MEAN CORPUSCULAR HGB CONC 32.7 g/dl (32.0-36.5); MEAN CORPUSCULAR VOLUME 98.2 fl (80.0-96.0); MONO # 0.4 10^3/uL (0.0-0.8); NEUTROPHILS # 4.1 10^3/uL (1.8-7.7); NEUTROPHILS % 57.4 % (36.0-66.0); PLATELET COUNT, AUTOMATED 366 10^3/uL (150-450); RED BLOOD COUNT 4.33 10^6/uL (4.00-5.40); WHITE BLOOD COUNT 7.1 10^3/uL (4.0-10.0)
[2018-06-23 14:09] LABS: ERYTHROCYTE SEDIMENTATION RATE 14 mm/hr (0-30)
[2018-06-23 14:14] LABS: BLOOD UREA NITROGEN 12 MG/DL (7-18); C REACTIVE PROTEIN QUANTITATIV < 0.30 MG/DL (0.00-0.30); CALCIUM LEVEL 9.1 MG/DL (8.5-10.1); CARBON DIOXIDE LEVEL 27 MEQ/L (21-32); CHLORIDE LEVEL 108 MEQ/L (98-107); CREATININE FOR GFR 0.73 MG/DL (0.55-1.30); FERRITIN 51 NG/ML (8-252); GLOMERULAR FILTRATION RATE > 60.0 (>51); GLUCOSE, FASTING 100 MG/DL (70-100); IRON (FE) 124 UG/DL (50-170); POTASSIUM SERUM 4.1 MEQ/L (3.5-5.1); PREALBUMIN 27.2 MG/DL (20.0-40.0); SODIUM LEVEL 142 MEQ/L (136-145); TOTAL IRON BINDING CAPACITY 413 UG/DL (250-450); URIC ACID 3.8 MG/DL (2.6-6.0)
[2018-06-23 16:26] LABS: HEMOGLOBIN A1c 8.3 %
[2018-06-23 16:52] LABS: MALB URINE SIEMENS 16.2 MG/L; MAU/CREAT RATIO 5.5 MCG/MG (0.0-30.0)
[2018-06-24 14:10] LABS: C-PEPTIDE < 0.1 ng/mL (1.1-4.4); TRANSFERRIN 305 mg/dL (200-370)
== END ==
LOC: M SFHCPLAZ 10:56
PROVIDERS: ATTEND Family Medicine
DX: D64.9 Anemia, unspecified (principal); E10.65 Type 1 diabetes mellitus with hyperglycemia; M79.642 Pain in left hand; E88.09 Other disorders of plasma-protein metabolism, not elsewhere classified

== ENCOUNTER 2018-08-12 15:45 | Observation (INO) | payer MEDICARE, MEDICAID ==
[~2018-08-12] VITALS: Ht 162.6 cm; Wt 66.5 kg
[~2018-08-12 15:45] MED LIST changes: +CYAN100049 PO; -OMEP20CA3 PO; +OMEP20CA4 PO; -VITA10002 PO
[2018-08-12] MEDS ORDERED: NS 1,000 ML IV ONE (16:00)
[2018-08-12 16:19] LABS: VENOUS BASE EXCESS -2.5 (-2.0-2.0); VENOUS HCO3 22.3 MEQ/L (23.0-27.0); VENOUS O2 SATURATION 92.3 % (60.0-80.0); VENOUS PARTIAL PRESSURE CO2 38.8 mmHg (38.0-50.0); VENOUS PARTIAL PRESSURE O2 66.9 mmHg (30.0-50.0); VENOUS PH 7.378 UNITS (7.330-7.430); VENOUS STANDARD HCO3 22.3 MEQ/L; VENOUS TOTAL CO2 23.5 MEQ/L (24.0-28.0)
[2018-08-12 16:22] LABS: BASO # 0.1 10^3/uL (0.0-0.2); BASO % 1.1 % (0.0-1.0); EOS # 0.5 10^3/uL (0.0-0.50); EOS % 3.8 % (0.0-3.0); HEMOGLOBIN 12.7 g/dl (12.0-15.5); LYMPH # 1.2 10^3/uL (1.5-4.5); LYMPH % 10.1 % (24.0-44.0); MEAN CORPUSCULAR HEMOGLOBIN 32.4 pg (27.0-33.0); MEAN CORPUSCULAR HGB CONC 33.4 g/dl (32.0-36.5); MEAN CORPUSCULAR VOLUME 96.9 fl (80.0-96.0); MONO # 0.7 10^3/uL (0.0-0.8); MONO % 5.7 % (0.0-5.0); NEUTROPHILS # 9.6 10^3/uL (1.8-7.7); NEUTROPHILS % 79.1 % (36.0-66.0); PLATELET COUNT, AUTOMATED 265 10^3/uL (150-450); RED BLOOD COUNT 3.92 10^6/uL (4.00-5.40); WHITE BLOOD COUNT 12.2 10^3/uL (4.0-10.0)
[2018-08-12] MEDS ORDERED: HumuLIN R (REGULAR) INSULIN (NovoLIN R) **100U/ML** PER UNIT IV ONE (16:45)
[2018-08-12] MEDS ORDERED: METOCLOPRAMIDE INJ 10MG/2ML VIAL (J2765) IV ONE (17:00)
[2018-08-12] MEDS ORDERED: MORPHINE 4 MG/ML 1ML VIAL/SYRINGE (J2270) IV ONE (17:00)
[2018-08-12 17:06] LABS: ACETONE/KETONE 1.13 MG/DL (<2.81); BILIRUBIN,TOTAL 0.2 MG/DL (0.2-1.0); CALCIUM LEVEL 8.5 MG/DL (8.5-10.1); CREATININE FOR GFR 1.12 MG/DL (0.55-1.30); POTASSIUM SERUM 3.9 MEQ/L (3.5-5.1); TOTAL PROTEIN 6.4 GM/DL (6.4-8.2)
[2018-08-12] MEDS ORDERED: ISOVUE-370 76% 100ML VIAL (Q9967) As Ordered ONE (17:46)
--- NOTE | 2018-08-12 17:57 | REP ---
Clinical: Cough and shortness of breath. Technique: PA and lateral. Comparison: 06/16/2018. Findings: Lingular infiltrate compatible with atelectasis and/or pneumonia noted. No effusion. No pneumothorax. Skeletal structures intact. Mediastinum and cardiac silhouette are normal. Impression: Lingular infiltrate. Electronically Signed by Shin Zarco MD 08/12/2018 05:49 P
--- NOTE | 2018-08-12 18:46 | REPVR ---
EXAM: CT Abdomen and Pelvis With Contrast EXAM DATE/TIME: 08/12/2018 6:03 PM CLINICAL HISTORY: 52 years old, female; Abdominal pain; Localized; Right upper quadrant (ruq); Additional info: Ruq pain, elev lactic, elev gluc TECHNIQUE: Imaging protocol: Axial computed tomography images of the abdomen and pelvis with intravenous contrast. Coronal and sagittal reformatted images were created and reviewed. Radiation optimization: All CT scans at this facility use at least one of these dose optimization techniques: automated exposure control; mA and/or kV adjustment per patient size (includes targeted exams where dose is matched to clinical indication); or iterative reconstruction. Contrast material: ISOVUE 370; Contrast volume: 100 ml; Contrast route: IV; COMPARISON: CT ABD/PEL W/IV CONTRAST ONLY 06/15/2018 1:09 PM FINDINGS: Lungs: Opacity lingula lobe likely represents chronic atelectasis slightly larger than demonstrated previously. Patchy infiltrates, reticulonodular and tree in bud demonstrated in the left lower lobe not present previously. Findings may indicate acute or subacute bronchiolitis/alveolitis. Liver: Normal. No mass. Gallbladder and bile ducts: There has been a cholecystectomy. Mild pneumobilia and dilatation of intrahepatic biliary tree consistent with prior sphincterotomy. Pancreas: Normal. No ductal dilation. Spleen: Normal. No splenomegaly. Adrenals: Normal. No mass. Kidneys and ureters: Normal. No hydronephrosis. Stomach and bowel: Gastric sutures demonstrated. Mild colonic distention with increased colonic fluid may indicate the presence of diarrhea or which should be correlated clinically. Appendix: No evidence of appendicitis. Intraperitoneal space: Normal. No free air. No significant fluid collection. Vasculature: The aorta demonstrates mild atherosclerotic calcification. Lymph nodes: Normal. No enlarged lymph nodes. Bladder: Unremarkable as visualized. Reproductive: There has been a hysterectomy. Bones/joints: Mild central spinal stenosis L4-5. Soft tissues: Unremarkable. IMPRESSION: 1. There has been a cholecystectomy. 2. There has been a hysterectomy. 3. Mild colonic distention with increased colonic fluid may indicate the presence of diarrhea or which should be correlated clinically. Electronically signed by: Ever Ch On 08/12/2018 18:46:09 PM
[2018-08-12] MEDS ORDERED: PANTOPRAZOLE 40MG INJ (PROTONIX) (C9113) IV ONE (19:15)
[2018-08-12] MEDS ORDERED: PIPERACILLIN/TAZOBACTAM SOD 3.375 GM in D5W MINI-BAG PLUS 50 ML IV ONE (20:15)
[2018-08-12] MEDS ORDERED: GI COCKTAIL 50ML BTL(HYOSCYAMINE/MAALOX/LIDOCAINE VISCOUS)(1:3:1) PO ONE (20:30)
[2018-08-12] MEDS: HumaLOG INSULIN (NovoLOG) PER UNIT SC SCH (21:00)
[2018-08-12 21:08] LABS: CK-MB VALUE MASS < 1.0 NG/ML (<3.6); CPK CREATINE PHOSPHOKINASE 70 U/L (26-192); MB/CK RELATIVE INDEX 1.43 (< OR =4); TROPONIN I < 0.02 NG/ML (< 0.10)
[2018-08-12] MEDS ORDERED: ONDANSETRON 4 MG ORAL DISINTEGRATING TAB (Q0162 PER 1MG) PO PRN (21:30)
[2018-08-12] MEDS ORDERED: GLUCAGON FOR INJ 1 MG VIAL (J1610) SC PRN (21:30)
[2018-08-12] MEDS ORDERED: GLUCOSE 4 GM CHEW TABLET PO PRN (21:30)
[2018-08-12] MEDS ORDERED: METOCLOPRAMIDE INJ 10MG/2ML VIAL (J2765) IV PRN (21:30)
[2018-08-12] MEDS ORDERED: DEXTROSE 50% 50 ML SYRINGE IV PRN (21:30)
[2018-08-12] MEDS ORDERED: MAALOX 30 ML SUSP *UDC PO PRN (21:30)
[2018-08-12] MEDS ORDERED: ALBUTEROL SULFATE 2.5 MG/0.5 ML INH NEB SOLN NEB PRN (22:00)
[2018-08-12] MEDS ORDERED: ONDA4TAB6 PO (22:11)
[2018-08-12] MEDS ORDERED: PANT-23 PO (22:11)
--- NOTE | 2018-08-12 22:23 | HPEPDOC ---
General Date of Admission 08/12/18 Date of Service: Aug 12, 2018 Primary Care Physician: OLIVIA JAEGER MD Other Providers GI - Dr Subramanian Attending Physician: ROMÁN HIGGINS DO Chief Complaint The patient is a 52-year-old female admitted with a reason for visit of High Blood Sugar. Source: Patient Exam Limitations: No limitations Timing/Duration: 24 hours Severity: Mild Associated Symptoms: Cough, Fever, Chills, Loss of appetite, Malaise, Nausea, Vomiting History of Present Illness 52 yo IDDM female with history of chronic left sided weakness, chronic abdomen pain and diarrhea , HTN presented to ED with RUQ abdomen pain, N,V,D and elevated blood sugars. Patient states abdomen pain started last night and associated with fever 100.3, and "didn't feel right". States no fever today. N/V started at noon today. States no change to her chronic diarrhea. State abdomen pain was RUQ, initially intermittent but now more constant. states feels like "pulling" and constant. better with turning to right side, worse with nothing. States had similar episodes in 2018 that resolved with ERCP. States had cholecystectomy done in 2017. Follows with Dr Subramanian for her chronic abd pain and diarrhea. States diarrhea/loose stool is no worse than her typical. In the ED, she was found to have Blood sugar of 548, treated with 10 unit insulin and 1 liter IVF, repeat blood sugar dropped to 97, was given food (able to keep down) and is currently 131. Patient is concerned that she may had further hypoglycemic episodes and is being placed under observation. In the ED she was also found to have abnormal CXR with atelectasis vs infiltrate (more probably atelectasis) and states no wheezing but yesterday had yellow phlegm cough, no SOB, no CP but increased GERD and belching. states still "doesn't feel quite right" Home Medications Scheduled Ammonium Lactate (Ammonium Lactate) 12 % Cre, 1 DOSE TOP DAILY, (Reported) APPLY TO FEET Aspirin (Aspirin EC) 81 Mg Tabec, 81 MG PO DAILY, (Reported) Atorvastatin Calcium (Atorvastatin Calcium) 20 Mg Tablet, 20 MG PO DAILY, (Reported) Cholecalciferol (Vitamin D3) (Vitamin D3) 1,000 Unit Tab, 1,000 UNIT PO DAILY, (Reported) Clonazepam (Clonazepam) 1 Mg Tablet, 1 MG PO TID, (Reported) Desvenlafaxine Succinate (Pristiq) 50 Mg Tab, 50 MG PO QHS, (Reported) Dulaglutide (Trulicity) 1.5 Mg/0.5 Ml Inj, 1.5 MG SC QWEEK, (Reported) TAKES ON WEDNESDAYS Ergocalciferol (Vitamin D2) (Drisdol) 50,000 Unit Capsule, 50,000 UNIT PO QWEEK, (Reported) WEDNESDAYS Ferrous Sulfate (Ferrous Sulfate) 325 Mg Tab, 325 MG PO DAILY, (Reported) Hydroxyzine HCl (Hydroxyzine HCl) 25 Mg Tablet, 25 MG PO QHS, (Reported) Insulin Detemir (Levemir) 100 Unit/1 Ml Vial, 20 UNITS SC QAM, (Reported) Insulin Detemir (Levemir) 100 Unit/1 Ml Vial, 18 UNITS SC QHS, (Reported) Insulin Human Lispro (Humalog) 1 Units/0.01 Ml Inj, 1 DOSE SC AC, (Reported) PER SLIDING SCALE Inulin (Fiber Gummies) 2 Gm Tab.chew, 1 CHW PO TID, (Reported) Lisinopril (Lisinopril) 10 Mg Tab, 10 MG PO DAILY, (Reported) Loratadine (Loratadine) 10 Mg Tab, 10 MG PO QHS, (Reported) Metoclopramide HCl (Reglan) 10 Mg Tab, 10 MG PO ACHS, (Reported) Montelukast Sodium (Montelukast Sodium) 10 Mg Tab, 10 MG PO QHS, (Reported) Multivitamins (Thera M Plus Tablet) 1 Tab Tab, 1 TAB PO DAILY, (Reported) Omeprazole (Omeprazole) 40 Mg Capsule.dr, 40 MG PO BID, (Reported) Pregabalin (Lyrica) 50 Mg Capsule, 50 MG PO BID, (Reported) Ramelteon (Rozerem) 8 Mg Tablet, 8 MG PO QHS, (Reported) Sucralfate (Sucralfate) 1 Gm Tablet, 1 GM PO BID, (Reported) Tizanidine HCl (Tizanidine HCl) 4 Mg Tablet, 4 MG PO TID, (Reported) Varenicline (Chantix) 1 Mg Tablet, 1 MG PO BID, (Reported) Vitamin B Complex (Vitamin B Complex) 1 Each Tablet, 1 TAB PO DAILY, (Reported) [Bariatric Fusion] , 1 CHEW PO TID, (Reported) Scheduled PRN Albuterol Sulfate (Ventolin Hfa) 108 Mcg/Act Aer, 2 PUFFS INH Q4H PRN for S HORTNESS OF BREATH, (Reported) Docusate Sodium (Colace) 100 Mg Cap, 100 MG PO BID PRN for CONSTIPATION, (Reported) Glucagon,Human Recombinant (Glucagon Emergency Kit) 1 Mg Kit, 1 MG IM PRN PRN for LOW BLOOD SUGAR, (Reported) Lidocaine (Lidocaine) 120 Gm Oint...g., 1 APLCT TOP DAILY PRN for BACK PAIN, (Reported) Onabotulinumtoxina (Botox) 200 Unit Vial, 200 UNIT INJ Q3M PRN for MIGRAINE, (Reported) Ondansetron (Ondansetron Odt) 8 Mg Tab, 8 MG PO BID PRN for NAUSEA, (Reported) Oxycodone HCl (Oxycodone HCl) 5 Mg Tablet, 5 MG PO Q4HP PRN for PAIN Oxycodone HCl/Acetaminophen (Oxycodone-Acetaminophen 5-325) 1 Each Tablet, 1 TAB PO BID PRN for PAIN, (Reported) Polyethylene Glycol 3350 (Miralax) 119 Gm Powder, 17 GM PO DAILY PRN for CONSTIPATION, (Reported) dilute in 8 ounces of water or juice Propranolol HCl (Propranolol HCl) 20 Mg Tablet, 20 MG PO TID PRN for ANXIETY, (Reported) Propylene Glycol/Peg 400 (Systane 0.3-0.4% Eye Drops) 15 Ml Sade, 1 DROP OU QID PRN for DRY EYES, (Reported) Sennosides/Docusate Sodium (Docusate Sodium-Senna Tablet) 1 Tab Tab, 1 TAB PO BID PRN for CONSTIPATION, (Reported) Sodium Chloride ([place]) 0.65 % Spr, 2 SPRAY NA QID PRN for NASAL DRYNESS, (Reported) EACH NOSTRIL Sumatriptan Succinate (Sumatriptan Succinate) 6 Mg/0.5 Ml Inj, 6 MG SC ASDIRECTE D PRN for MIGRAINE, (Reported) MDD = 12 MG FOR 24 HOURS Trazodone HCl (Trazodone HCl) 50 Mg Tablet, 1 TAB PO QHS PRN for SLEEP, (Reported) Allergies Coded Allergies: TAPE (Verified Allergy, Mild, PLASTIC TAPE- RASH, 09/26/17) BANDAIDS -RASH prednisone (Verified Adverse Reaction, Intermediate, EXTREME ELEVATED BLOOD SUGAR, 06/08/18) Gluten Flour (Verified Adverse Reaction, Mild, diarrhea, 09/26/17) gluten (Verified Adverse Reaction, Mild, DIARRHEA, 06/08/18) Past Medical History Medical History IDDM, hx DKA in past, Asthma, GERD, HTN, Anemia (chronic), Chronic RUQ abd pain, Chronic loose stool/diarrhea, IBS, Environmental allergies, Chronic low back lisa n Surgical History S/P Appy, S/P nishi, S/P ERCP, S/P EVIE, S/P left leg darren/fracture repair Family History Significant Family History: No pertinent family hx, Other (father from [place]) Social History * Smoker: former Smoker (quit 3 weeks ago with chantix) Alcohol: Denies Drugs: denies A-FIB/CHADSVASC A-FIB History Current/History of A-Fib/PAF?: No Current PO Anticoag Therapy: No Review of Systems Other systems 10 comprehensive systems reviewed and negative except as per HPI Physical Examination General Exam: Positive: Alert, Cooperative, No Acute Distress Eye Exam: Positive: PERRLA, Conjunctiva & lids normal, EOMI ENT Exam: Positive: Atraumatic, Mucous membr. moist/pink, Pharynx Normal, Nares Patent Neck Exam: Positive: Supple, +2 carotid pulse wo bruit, Other (no cervical adenopathy) Chest Exam: Positive: Clear to auscultation, Normal air movement, Other (intermittent atectatic "pop" to bases with deep inspiration, cleared with cough); Negative: Rales, Rhonchi, Wheezing Heart Exam: Positive: Rate Normal, Normal S1, Normal S2, Murmurs (SHYAM 3/6) Abdomen Exam: Positive: Normal bowel sounds, Soft, Tenderness (RUQ, no rebound, no rigidity, no guarding) Extremity Exam: Positive: Normal pulses; Negative: Clubbing, Cyanosis, Edema Skin Exam: Positive: Nl turgor and temperature; Negative: Rash Neuro Exam: Positive: Normal Speech, Normal Tone, Sensation Intact Psych Exam: Positive: Mental status NL, Mood NL, Oriented x 3 Other physical findings CXR images reviewed with LLL atelectasis (doubt infiltrate) CT ABD: IMPRESSION: 1. There has been a cholecystectomy. 2. There has been a hysterectomy. 3. Mild colonic distention with increased colonic fluid may indicate the presence of diarrhea or which should be correlated clinically. Vital Signs Vital Signs Date Time Temp Pulse Resp B/P (MAP) Pulse Ox O2 Delivery O2 Flow Rate FiO2 08/12/18 21:06 100.9 87 17 135/84 (101) 96 Room Air Laboratory Data Labs 24H Laboratory Tests 2 08/12/18 16:11: Blood Gas Bicarbonate Standard 22.3, Venous Blood pH 7.378, Venous Blood Partial Pressure CO2 38.8, Venous Blood Partial Pressure O2 66.9H, Venous Blood Total Carbon Dioxide 23.5L, Venous Blood HCO3 22.3L, Venous Blood Oxygen Saturation 92.3H, Venous Blood Base Excess -2.5L, Anion Gap 13, Glomerular Filtration Rate 54.0, Blood Urea Nitrogen 14, Creatinine 1.12, Sodium Level 134L, Potassium Lev el 3.9, Chloride Level 99, Carbon Dioxide Level 22, Calcium Level 8.5, Aspartate Amino Transf (AST/SGOT) 39H, Alanine Aminotransferase (ALT/SGPT) 85H, Alkaline Phosphatase 114, Total Bilirubin 0.2, Total Protein 6.4, Albumin 3.0L, Albumin/Globulin Ratio 0.88L, Lipase 87, B-Hydroxybutyrate 1.13 08/12/18 16:13: Immature Granulocyte % (Auto) 0.2, White Blood Count 12.2H, Red Blood Count 3.92L, Hemoglobin 12.7, Hematocrit 38.0, Mean Corpuscular Volume 96.9H, Mean Corpuscular Hemoglobin 32.4, Mean Corpuscular Hemoglobin Concent 33.4, Red Cell Distribution Width 12.7, Platelet Count 265, Neutrophils (%) (Auto) 79.1H, Lymphocytes (%) (Auto) 10.1L, Monocytes (%) (Auto) 5.7H, Eosinophils (%) (Auto) 3.8H, Basophils (%) (Auto) 1.1H, Neutrophils # (Auto) 9.6H, Lymphocytes # (Auto) 1.2L, Monocytes # (Auto) 0.7, Eosinophils # (Auto) 0.5, Basophils # (Auto) 0.1, Nucleated Red Blood Cells % (auto) 0.0, Lactic Acid Level 4.2*H 08/12/18 17:40: Urine Color STRAW, Urine Appearance CLEAR, Urine pH 5.0, Urine Specific [place] 1.018, Urine Protein NEGATIVE, Urine Glucose (UA) 3+H, Urine Ketones NEGATIVE, Urine Blood NEGATIVE, Urine Nitrite NEGATIVE, Urine Bilirubin NEGATIVE, Urine Urobilinogen 0.2, Urine Leukocyte Esterase NEGATIVE, Urine WBC (Auto) 0, Urine RBC (Auto) 2, Urine Hyaline Casts (Auto) 0, Urine Bacteria (Auto) NEGATIVE, Urine Squamous Epithelial Cells 0, Urine Mucus (Auto) SMALL, Urine Sperm (Auto) 08/12/18 18:31: Bedside Glucose (Misc Panel) 122H 08/12/18 19:10: Bedside Glucose (Misc Panel) 97 08/12/18 20:04: Bedside Glucose (Misc Panel) 131H 08/12/18 20:24: Lactic Acid Level 1.4, Total Creatine Kinase 70, Creatine Kinase MB < 1.0, Creatine Kinase MB Relative Index 1.43, Troponin I < 0.02 CBC/BMP Laboratory Tests 08/12/18 16:11 Calcium Level 8.5, Aspartate Amino Transf (AST/SGOT) 39 H, Alanine Aminotransferase (ALT/SGPT) 85 H, Alkaline Phosphatase 114, Total Bilirubin 0.2, Total Protein 6.4, Albumin 3.0 L 08/12/18 16:13 Red Blood Count 3.92 L, Mean Corpuscular Volume 96.9 H, Mean Corpuscular Hemoglobin 32.4, Mean Corpuscular Hemoglobin Concent 33.4, Red Cell Distribution Width 12.7, Neutrophils (%) (Auto) 79.1 H, Lymphocytes (%) (Auto) 10.1 L, Monocytes (%) (Auto) 5.7 H, Eosinophils (%) (Auto) 3.8 H, Basophils (%) (Auto) 1.1 H, Neutrophils # (Auto) 9.6 H, Lymphocytes # (Auto) 1.2 L, Monocytes # (Auto) 0.7, Eosinophils # (Auto) 0.5, Basophils # (Auto) 0.1 Microbiology Microbiology 08/12/18 Blood Culture, Received Pending 08/12/18 Blood Culture, Received Pending Assessment/Plan 1) diabetes requiring [facility] insulin with hyperglycemia and hypoglycemia OBSERVATION. given 10 unit insulin and 1 liter IVF with drop in blood sugar, improved with po intake. monitor over night for further hypoglycemia SSI, Carb diet Elevated WBC most likely stress reaction to N,V and elevated blood sugars No signs of DKA 2) RUQ abdomen pain (acute on chronic) - stable May be sphincter of oddi dysfunction or worsening GERD monitor. if no improvement, consider inpatient vs outpatient evaluation by GI 3) Abnormal CXR - suspect this is atelectasis not infiltrate Recieved 1 dose IV zosyn in ED. Will NOT continue antibiotic at this time but monitor. no signs of asthma exacerbation. check sputum culture. blood cultures obtained in ED. PEP/IS ordered, nebs for increased ventilation ordered 4) GERD - PPI, carafate suspension, symptomatic care. consider GI cocktail 5) HTN - monitor - continue home medications 6) Tobacco dependence - quit 3 weeks ago. continue chantix CODE STATUS: FULL DVT PROPHYLAXIS: LOVENOX Plan / VTE VTE Prophylaxis Ordered?: Yes ROMÁN HIGGINS DO Aug 12, 2018 21:27
[2018-08-12] MEDS: IPRATROPIUM 0.5MG/ALBUTEROL 2.5MG INH SOL UD 3ML (DUONEB)(J7620) NEB SCH (23:03)
[2018-08-13 00:55] VITALS: BP 124/66
[2018-08-13] MEDS: SUCRALFATE SUSP 1GM/10ML UD PO SCH ×4 (01:43→17:44)
[2018-08-13] MEDS: IPRATROPIUM 0.5MG/ALBUTEROL 2.5MG INH SOL UD 3ML (DUONEB)(J7620) NEB SCH ×4 (02:00→20:02)
[2018-08-13 06:00] VITALS: BP 101/50
[2018-08-13 06:29] LABS: HEMOGLOBIN 11.8 g/dl (12.0-15.5); MEAN CORPUSCULAR HEMOGLOBIN 31.6 pg (27.0-33.0); MEAN CORPUSCULAR HGB CONC 32.8 g/dl (32.0-36.5); MEAN CORPUSCULAR VOLUME 96.5 fl (80.0-96.0); PLATELET COUNT, AUTOMATED 252 10^3/uL (150-450); RED BLOOD COUNT 3.73 10^6/uL (4.00-5.40); WHITE BLOOD COUNT 12.1 10^3/uL (4.0-10.0)
[2018-08-13 06:55] LABS: ALBUMIN 2.5 GM/DL (3.2-5.2); ALT/SGPT 62 U/L (12-78); BILIRUBIN,TOTAL 0.2 MG/DL (0.2-1.0); BLOOD UREA NITROGEN 8 MG/DL (7-18); CALCIUM LEVEL 8.1 MG/DL (8.5-10.1); CARBON DIOXIDE LEVEL 29 MEQ/L (21-32); CHLORIDE LEVEL 105 MEQ/L (98-107); CREATININE FOR GFR 0.78 MG/DL (0.55-1.30); GLOMERULAR FILTRATION RATE > 60.0 (>51); GLUCOSE, FASTING 344 MG/DL (70-100); SODIUM LEVEL 140 MEQ/L (136-145)
[2018-08-13] MEDS: HumaLOG INSULIN (NovoLOG) PER UNIT SC SCH ×4 (07:45→22:40)
[2018-08-13] MEDS: ENOXAPARIN 40 MG/0.4 ML SYRINGE (J1650) SC SCH (07:46)
--- NOTE | 2018-08-13 08:15 | REP ---
Clinical: Left lower lobe atelectasis. Technique: PA and lateral. Comparison: 08/12/2018. Findings: Aeration appears improved but with continued subtle atelectasis primarily involving the lingula. No effusion. No pneumothorax. Mediastinum and cardiac silhouette normal. Impression: Mild atelectasis to the lingula. The subtle left lower lobe early infiltrate noted on recent CT not definitively noted by radiograph study. Electronically Signed by Shin Zarco MD 08/13/2018 08:06 A
[2018-08-13 10:00] VITALS: BP 124/74
--- NOTE | 2018-08-13 10:33 | ECGEPIP ---
[facility] - ED Test Date: 2018-08-12 Pat Name: ANA SCHWAB Department: Room: - Gender: Female Manager Custom: lindsey : 1965 Requested By: KLARISSA Mendoza PA-C Order Number: [id number] Reading MD: Dena Orantes Measurements Intervals Home Rate: 94 P: 57 LA: 190 QRS: 60 QRSD: 87 T: 52 QT: 342 QTc: 428 Interpretive Statements SINUS RHYTHM NSTTW abnormalities INCREASED RATE 06/15/18 Electronically Signed on 08-13-2018 10:33:16 EDT by Dena Orantes
[2018-08-13 14:00] VITALS: BP 152/71
[2018-08-13] MEDS: ACETAMINOPHEN TAB 650MG DOSE (2X325MG) PO PRN (15:23)
[2018-08-13] MEDS: ONDANSETRON 4MG/2ML VIAL (J2405) IV PRN (15:33)
[2018-08-13] MEDS: LEVEMIR (INSULIN DETEMIR) 1 UNITS/0.01ML SC SCH (18:23)
[2018-08-13 22:00] VITALS: BP 128/75
[2018-08-14] MEDS: SUCRALFATE SUSP 1GM/10ML UD PO SCH ×3 (02:00→12:14)
[2018-08-14] MEDS: IPRATROPIUM 0.5MG/ALBUTEROL 2.5MG INH SOL UD 3ML (DUONEB)(J7620) NEB SCH ×2 (02:00→07:21)
[2018-08-14 06:00] VITALS: BP 115/64
[2018-08-14] MEDS: ACETAMINOPHEN TAB 650MG DOSE (2X325MG) PO PRN (06:56)
[2018-08-14] MEDS: HumaLOG INSULIN (NovoLOG) PER UNIT SC SCH ×2 (07:30→12:23)
[2018-08-14] MEDS ORDERED: guaiFENesin DM LIQ 10ML UD PO PRN (08:00)
[2018-08-14] MEDS: ENOXAPARIN 40 MG/0.4 ML SYRINGE (J1650) SC SCH (08:43)
[2018-08-14] MEDS: ONDANSETRON 4MG/2ML VIAL (J2405) IV PRN (08:43)
[2018-08-14] MEDS: LEVEMIR (INSULIN DETEMIR) 1 UNITS/0.01ML SC SCH (08:53)
[2018-08-14] MEDS ORDERED: AZITHROMYCIN INJ 500 MG, VIAL MATE ADAPTER 1 EACH in D5W 250 ML IV SCH (09:00)
[2018-08-14] MEDS ORDERED: AZIT500T2 PO (11:53)
[2018-08-14] MEDS ORDERED: [UNRECOGNIZED DRUG - CODE] PO (11:55)
--- NOTE | 2018-08-14 17:43 | DS.PDOC ---
Discharge Summary General Date of Admission Aug 12, 2018 at 21:20 Date of Discharge August 14, 2018 Discharge Summary PROCEDURES PERFORMED DURING STAY: ADMITTING DIAGNOSES: 1. Uncontrolled Hyperglycemia 2. Acute Gastroenteritis 3. Lung Atelectasis 4. Smoker 5. HTN DISCHARGE DIAGNOSES: same as above COMPLICATIONS/CHIEF COMPLAINT: Hyperglycemia. HISTORY OF PRESENT ILLNESS: (As per initial H&P): 52 yo IDDM female with history of chronic left sided weakness, chronic abdomen pain and diarrhea , HTN presented to ED with RUQ abdomen pain, N,V,D and elevated blood sugars. Patient states abdomen pain started last night and associated with fever 100.3, and "didn't feel right". States no fever today. N/V started at noon today. States no change to her chronic diarrhea. State abdomen pain was RUQ, initially intermittent but now more constant. states feels like "pulling" and constant. better with turning to right side, worse with nothing. States had similar episodes in 2018 that resolved with ERCP. States had cholecystectomy done in 2017. Follows with Dr Subramanian for her chronic abd pain and diarrhea. States diarrhea/loose stool is no worse than her typical. In the ED, she was found to have Blood sugar of 548, treated with 10 unit insulin and 1 liter IVF, repeat blood sugar dropped to 97, was given food (able to keep down) and is currently 131. Patient is concerned that she may had further hypoglycemic episodes and is being placed under observation. In the ED she was also found to have abnormal CXR with atelectasis vs infiltrate (more probably atelectasis) and states no wheezing but yesterday had yellow phlegm cough, no SOB, no CP but increased GERD and belching. states still "doesn't feel quite right" HOSPITAL COURSE: 1) diabetes was controlled with insulin and IVF, No signs of DKA, PO intake improved. monitor over night for further hypoglycemIA 2) RUQ abdomen pain improved with supportive care. Consider outpatient evaluation by GI 3) Abnormal CXR - most likely atelectasis not infiltrate, ABx was stopped. no sign or symptoms of pneumonia 4) HTN - was controlled with home medications 5) Tobacco dependence - quit 3 weeks ago. continue chantix DISCHARGE MEDICATIONS: Please see below. ALLERGIES: Please see below. PHYSICAL EXAMINATION ON DISCHARGE: VITAL SIGNS: Please see below. General Exam: Alert, Cooperative, No Acute Distress Eye Exam: PERRLA, Conjunctiva & lids normal, EOMI ENT Exam: Atraumatic, Mucous membr. moist/pink, Pharynx Normal, Nares Patent Neck Exam: Supple, +2 carotid pulse wo bruit, Other (no cervical adenopathy) Chest Exam: Clear to auscultation, Normal air movement, Negative: Rales, Rhonchi, Wheezing Heart Exam: Rate Normal, Normal S1, Normal S2, Murmurs (SHYAM 3/6) Abdomen Exam: Normal bowel sounds, Soft, Tenderness (RUQ, no rebound, no rigidity, no guarding) Extremity Exam: Normal pulses; Negative: Clubbing, Cyanosis, Edema Skin Exam: Nl turgor and temperature; Negative: Rash Neuro Exam: Normal Speech, Normal Tone, Sensation Intact Psych Exam: Mental status NL, Mood NL, Oriented x 3 Other physical findings CXR images reviewed with LLL atelectasis (doubt infiltrate) LABORATORY DATA: Please see below. IMAGING: CXR: 08/12/18 Impression: Lingular infiltrate. CT ABD/Pelvis IMPRESSION: 1. There has been a cholecystectomy. 2. There has been a hysterectomy. 3. Mild colonic distention with increased colonic fluid may indicate the presence of diarrhea or which should be correlated clinically. PROGNOSIS: Fair ACTIVITY: As tolerated DIET: Diabetic, low salt DISCHARGE PLAN: diabetes control, smoking cessation DISPOSITION: 01 Home, Self-Care. DISCHARGE INSTRUCTIONS: 1. Diabetic control 2. Smoking cessation ITEMS TO FOLLOWUP ON ON OUTPATIENT: 1. Follow with PMD 2. Follow with GI clinic DISCHARGE CONDITION: Stable, afebrile, abdominal pain improved, tolerated diet, sugar was controlled TIME SPENT ON DISCHARGE: Greater than 25 minutes. Vital Signs/I&Os Vital Signs Date Time Temp Pulse Resp B/P (MAP) Pulse Ox O2 Delivery O2 Flow Rate FiO2 08/14/18 06:00 99.2 95 20 115/64 (81) 91 08/13/18 00:36 Room Air I&O- Last 24 Hours up to 6 AM 08/14/18 06:00 Intake Total 2250 ml Output Total 750 ml Balance 1500 ml Laboratory Data Labs 24H Laboratory Tests 2 08/13/18 20:53: Bedside Glucose (Misc Panel) 253H 08/14/18 05:50: Bedside Glucose (Misc Panel) 100 08/14/18 12:02: Bedside Glucose (Misc Panel) 481H 08/14/18 12:19: Bedside Glucose (Misc Panel) 469H FSBS Laboratory Tests Test 08/13/18 20:53 08/14/18 05:50 08/14/18 12:02 08/14/18 12:19 Range/Units Bedside Glucose (Misc Panel) 253 100 481 469 70-105 MG/DL Microbiology Microbiology 08/12/18 Blood Culture - Preliminary, Resulted No growth after 24 hours . All specim... 08/12/18 Blood Culture - Preliminary, Resulted No Growth after 48 hours. All Specime... Discharge Medications Scheduled Aspirin (Aspirin EC) 81 Mg Tabec, 81 MG PO DAILY, (Reported) Atorvastatin Calcium (Atorvastatin Calcium) 20 Mg Tablet, 20 MG PO DAILY, (Reported) Azithromycin (Azithromycin) 500 Mg Tablet, 500 MG PO DAILY Cholecalciferol (Vitamin D3) (Vitamin D3) 1,000 Unit Tab, 1,000 UNIT PO DAILY, (Reported) Clonazepam (Clonazepam) 1 Mg Tablet, 1 MG PO TID, (Reported) Desvenlafaxine Succinate (Pristiq) 50 Mg Tab, 50 MG PO QHS, (Reported) Dulaglutide (Trulicity) 1.5 Mg/0.5 Ml Inj, 1.5 MG SC QWEEK, (Reported) TAKES ON WEDNESDAYS Ergocalciferol (Vitamin D2) (Drisdol) 50,000 Unit Capsule, 50,000 UNIT PO QWEEK, (Reported) WEDNESDAYS Ferrous Sulfate (Ferrous Sulfate) 325 Mg Tab, 325 MG PO DAILY, (Reported) Guaifenesin/Dextromethorphan (Robafen Dm Cough Syrup) 473 Ml Liquid, 473 ML PO Q6H Hydroxyzine HCl (Hydroxyzine HCl) 25 Mg Tablet, 25 MG PO QHS, (Reported) Insulin Detemir (Levemir) 100 Unit/1 Ml Vial, 20 UNITS SC DAILY, (Reported) Insulin Detemir (Levemir) 100 Unit/1 Ml Vial, 18 UNITS SC QHS, (Reported) Insulin Human Lispro (Humalog) 1 Units/0.01 Ml Inj, 1 DOSE SC AC, (Reported) PER SLIDING SCALE Inulin (Fiber Gummies) 2 Gm Tab.chew, 1 CHW PO TID, (Reported) Lisinopril (Lisinopril) 10 Mg Tab, 10 MG PO DAILY, (Reported) Loratadine (Loratadine) 10 Mg Tab, 10 MG PO QHS, (Reported) Metoclopramide HCl (Reglan) 10 Mg Tab, 10 MG PO BID, (Reported) Multivitamins (Thera M Plus Tablet) 1 Tab Tab, 1 TAB PO DAILY, (Reported) Pantoprazole Sodium (Pantoprazole Sodium) 40 Mg Tablet.dr, 40 MG PO DAILY, (Reported) Pregabalin (Lyrica) 50 Mg Capsule, 50 MG PO BID, (Reported) Propranolol HCl (Propranolol HCl) 20 Mg Tablet, 20 MG PO BID, (Reported) Ramelteon (Rozerem) 8 Mg Tablet, 8 MG PO QHS, (Reported) Sucralfate (Sucralfate) 1 Gm Tablet, 1 GM PO BID, (Reported) Tizanidine HCl (Tizanidine HCl) 4 Mg Tablet, 4 MG PO TID, (Reported) Varenicline (Chantix) 1 Mg Tablet, 1 MG PO BID, (Reported) Vitamin B Complex (Vitamin B Complex) 1 Each Tablet, 1 TAB PO DAILY, (Reported) [Bariatric Fusion] , 1 CHEW PO DAILY, (Reported) Scheduled PRN Albuterol Sulfate (Ventolin Hfa) 108 Mcg/Act Aer, 2 PUFFS INH Q4H PRN for SHORTNESS OF BREATH, (Reported) Ammonium Lactate (Ammonium Lactate) 12 % Cre, 1 DOSE TOP DAILY PRN for PAIN, (Reported) APPLY TO FEET Docusate Sodium (Colace) 100 Mg Cap, 100 MG PO BID PRN for CONSTIPATION, (Reported) Glucagon,Human Recombinant (Glucagon Emergency Kit) 1 Mg Kit, 1 MG IM ASDIRECTED PRN for LOW BLOOD SUGAR, (Reported) Lidocaine (Lidocaine) 120 Gm Oint...g., 1 DOSE TOP DAILY PRN for BACK PAIN, (Reported) Montelukast Sodium (Montelukast Sodium) 10 Mg Tab, 10 MG PO DAILY PRN for ALLERGIES, (Reported) Onabotulinumtoxina (Botox) 200 Unit Vial, 200 UNIT INJ Q3M PRN for MIGRAINE, (Reported) BEEN ABOUT 4 MONTHS SINCE LAST DOSE Ondansetron (Ondansetron Odt) 4 Mg Tab.rapdis, 4 MG PO TID PRN for NAUSEA, (Reported) Oxycodone HCl/Acetaminophen (Oxycodone-Acetaminophen 5-325) 1 Each Tablet, 1 TAB PO BID PRN for PAIN, (Reported) Polyethylene Glycol 3350 (Miralax) 119 Gm Powder, 17 GM PO DAILY PRN for CONSTIPATION, (Reported) Propylene Glycol/Peg 400 (Systane 0.3-0.4% Eye Drops) 15 Ml Sade, 1 DROP OU QID PRN for DRY EYES, (Reported) Sennosides/Docusate Sodium (Docusate Sodium-Senna Tablet) 1 Tab Tab, 1 TAB PO BID PRN for CONSTIPATION, (Reported) Sodium Chloride ([place]) 0.65 % Spr, 2 SPRAY NA QID PRN for NASAL DRYNESS, (Reported) Trazodone HCl (Trazodone HCl) 50 Mg Tablet, 1 TAB PO QHS PRN for SLEEP, (Reported) Allergies Coded Allergies: TAPE (Verified Allergy, Mild, PLASTIC TAPE- RASH, 09/26/17) BANDAIDS -RASH prednisone (Verified Adverse Reaction, Intermediate, EXTREME ELEVATED BLOOD SUGAR, 06/08/18) Gluten Flour (Verified Adverse Reaction, Mild, diarrhea, 09/26/17) gluten (Verified Adverse Reaction, Mild, DIARRHEA, 06/08/18) MARTHA COFFMAN MD Aug 14, 2018 17:43
--- NOTE | 2018-08-14 17:51 | IPNPDOC ---
Text Note Date of Service The patient was seen on 08/13/18. NOTE Pt was seen and examined at bedside. Pt complains of abdominal pain, nausea, vomiting. FS 350-400. Pt denies any urinary frequency. PHE General Exam: Alert, Cooperative, No Acute Distress Eye Exam: PERRLA, Conjunctiva & lids normal, EOMI ENT Exam: Atraumatic, Mucous membr. moist/pink, Pharynx Normal, Nares Patent Neck Exam: Supple, +2 carotid pulse wo bruit, Other (no cervical adenopathy) Chest Exam: Clear to auscultation, Normal air movement, Other (intermittent atectatic "pop" to bases with deep inspiration, cleared with cough); Negative: Rales, Rhonchi, Wheezing Heart Exam: Rate Normal, Normal S1, Normal S2, Murmurs (SHYAM 3/6) Abdomen Exam: Normal bowel sounds, Soft, Tenderness (RUQ, no rebound, no rigidity, no guarding) Extremity Exam: Normal pulses; Negative: Clubbing, Cyanosis, Edema Skin Exam: Nl turgor and temperature; Negative: Rash Neuro Exam: Normal Speech, Normal Tone, Sensation Intact Psych Exam: Mental status NL, Mood NL, Oriented x 3 Other physical findings CXR images reviewed with LLL atelectasis (doubt infiltrate) CT ABD: IMPRESSION: 1. There has been a cholecystectomy. 2. There has been a hysterectomy. 3. Mild colonic distention with increased colonic fluid may indicate the presence of diarrhea or which should be correlated clinically. Vital Signs Vital Signs Date Time Temp Pulse Resp B/P (MAP) Pulse Ox O2 Delivery O2 Flow Rate FiO2 08/12/18 21:06 100.9 87 17 135/84 (101) 96 Room Air Laboratory Data Labs 24H Laboratory Tests 2 08/12/18 16:11: Blood Gas Bicarbonate Standard 22.3, Venous Blood pH 7.378, Venous Blood Partial Pressure CO2 38.8, Venous Blood Partial Pressure O2 66.9H, Venous Blood Total Carbon Dioxide 23.5L, Venous Blood HCO3 22.3L, Venous Blood Oxygen Saturation 92.3H, Venous Blood Base Excess -2.5L, Anion Gap 13, Glomerular Filtration Rate 54.0, Blood Urea Nitrogen 14, Creatinine 1.12, Sodium Level 134L, Potassium Level 3.9, Chloride Level 99, Carbon Dioxide Level 22, Calcium Level 8.5, Aspartate Amino Transf (AST/SGOT) 39H, Alanine Aminotransferase (ALT/SGPT) 85H, Alkaline Phosphatase 114, Total Bilirubin 0.2, Total Protein 6.4, Albumin 3.0L, Albumin/Globulin Ratio 0.88L, Lipase 87, B-Hydroxybutyrate 1.13 08/12/18 16:13: Immature Granulocyte % (Auto) 0.2, White Blood Count 12.2H, Red Blood Count 3.92L, Hemoglobin 12.7, Hematocrit 38.0, Mean Corpuscular Volume 96.9H, Mean Corpuscular Hemoglobin 32.4, Mean Corpuscular Hemoglobin Concent 33.4, Red Cell Distribution Width 12.7, Platelet Count 265, Neutrophils (%) (Auto) 79.1H, Lymphocytes (%) (Auto) 10.1L, Monocytes (%) (Auto) 5.7H, Eosinophils (%) (Auto) 3.8H, Basophils (%) (Auto) 1.1H, Neutrophils # (Auto) 9.6H, Lymphocytes # (Auto) 1.2L, Monocytes # (Auto) 0.7, Eosinophils # (Auto) 0.5, Basophils # (Auto) 0.1, Nucleated Red Blood Cells % (auto) 0.0, Lactic Acid Level 4.2*H 08/12/18 17:40: Urine Color STRAW, Urine Appearance CLEAR, Urine pH 5.0, Urine Specific Garvin 1.018, Urine Protein NEGATIVE, Urine Glucose (UA) 3+H, Urine Ketones NEGATIVE, Urine Blood NEGATIVE, Urine Nitrite NEGATIVE, Urine Bilirubin NEGATIVE, Urine Urobilinogen 0.2, Urine Leukocyte Esterase NEGATIVE, Urine WBC (Auto) 0, Urine RBC (Auto) 2, Urine Hyaline Casts (Auto) 0, Urine Bacteria (Auto) NEGATIVE, Urine Squamous Epithelial Cells 0, Urine Mucus (Auto) SMALL, Urine Sperm (Auto) 08/12/18 18:31: Bedside Glucose (Misc Panel) 122H 08/12/18 19:10: Bedside Glucose (Misc Panel) 97 08/12/18 20:04: Bedside Glucose (Misc Panel) 131H 08/12/18 20:24: Lactic Acid Level 1.4, Total Creatine Kinase 70, Creatine Kinase MB < 1.0, Creatine Kinase MB Relative Index 1.43, Troponin I < 0.02 CBC/BMP Laboratory Tests 08/12/18 16:11 Calcium Level 8.5, Aspartate Amino Transf (AST/SGOT) 39 H, Alanine Aminotransferase (ALT/SGPT) 85 H, Alkaline Phosphatase 114, Total Bilirubin 0.2, Total Protein 6.4, Albumin 3.0 L 08/12/18 16:13 Red Blood Count 3.92 L, Mean Corpuscular Volume 96.9 H, Mean Corpuscular Hemoglobin 32.4, Mean Corpuscular Hemoglobin Concent 33.4, Red Cell Distribution Width 12.7, Neutrophils (%) (Auto) 79.1 H, Lymphocytes (%) (Auto) 10.1 L, Monocytes (%) (Auto) 5.7 H, Eosinophils (%) (Auto) 3.8 H, Basophils (%) (Auto) 1.1 H, Neutrophils # (Auto) 9.6 H, Lymphocytes # (Auto) 1.2 L, Monocytes # (Auto) 0.7, Eosinophils # (Auto) 0.5, Basophils # (Auto) 0.1 Microbiology Microbiology 08/12/18 Blood Culture, Received Pending 08/12/18 Blood Culture, Received Pending Assessment/Plan Assessment/Plan 1) 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 given 10 unit insulin and 1 liter IVF with drop in blood sugar, improved with po intake. monitor over night for further hypoglycemia SSI, Carb diet Elevated WBC most likely stress reaction to N,V and elevated blood sugars No signs of DKA 2) RUQ abdomen pain (acute on chronic) - stable May be sphincter of oddi dysfunction or worsening GERD monitor. if no improvement, consider inpatient vs outpatient evaluation by GI 3) Abnormal CXR - suspect this is atelectasis not infiltrate Recieved 1 dose IV zosyn in ED. Will NOT continue antibiotic at this time but monitor. no signs of asthma exacerbation. check sputum culture. blood cultures obtained in ED. PEP/IS ordered, nebs for increased ventilation ordered 4) GERD - PPI, carafate suspension, symptomatic care. consider GI cocktail 5) HTN - monitor - continue home medications 6) Tobacco dependence - quit 3 weeks ago. continue chantix CODE STATUS: FULL DVT PROPHYLAXIS: LOVENOX VS,Fishbone, I+O VS, Fishbone, I+O Vital Signs Date Time Temp Pulse Resp B/P (MAP) Pulse Ox O2 Delivery O2 Flow Rate FiO2 08/14/18 06:00 99.2 95 20 115/64 (81 91 08/13/18 00:36 Room Air I&O- Last 24 Hours up to 6 AM 08/14/18 06:00 Intake Total 2250 ml Output Total 750 ml Balance 1500 ml MARTHA COFFMAN MD Aug 14, 2018 17:51
== END 2018-08-14 14:00 | disposition home or self-care (01) ==
LOC: M ED 15:45 → M ED INP 21:20 → M MSPAV 08-13 00:57
PROVIDERS: ADMIT Family Medicine; ATTEND Hospitalist
DX: E11.65 Type 2 diabetes mellitus with hyperglycemia (principal); K52.9 Noninfective gastroenteritis and colitis, unspecified; J98.11 Atelectasis; F17.210 Nicotine dependence, cigarettes, uncomplicated; I10 Essential (primary) hypertension; Z79.82 Long term (current) use of aspirin; Z79.4 Long term (current) use of insulin; Z79.899 Other long term (current) drug therapy
CPT/HCPCS: 36415; 71046; 74177; 80053; 81001; 82010; 82550; 82553; 82803; 83605; 83690; 84484; 85025; 85027; 87040; 93005; 94640; 96372; 96374; 96375; 96376; 99285; C9113; G0378; J0456; J1650; J2270; J2405; J2543; J2765; Q9967

== ENCOUNTER → 2018-08-19 | Outpatient (REF) | payer MEDICARE, MEDICAID ==
[~2018-08-19] MED LIST changes: +AZIT500T2 PO; +ONDA4TAB6 PO; +PANT-23 PO; +[UNRECOGNIZED DRUG - CODE] PO
[2018-08-19 15:56] LABS: BASO # 0.1 10^3/uL (0.0-0.2); EOS # 0.2 10^3/uL (0.0-0.50); HEMATOCRIT 38.2 % (36.0-47.0); HEMOGLOBIN 12.4 g/dl (12.0-15.5); LYMPH # 1.8 10^3/uL (1.5-4.5); MEAN CORPUSCULAR HEMOGLOBIN 30.5 pg (27.0-33.0); MEAN CORPUSCULAR HGB CONC 32.5 g/dl (32.0-36.5); MEAN CORPUSCULAR VOLUME 93.9 fl (80.0-96.0); MONO # 0.4 10^3/uL (0.0-0.8); NEUTROPHILS # 3.5 10^3/uL (1.8-7.7); NEUTROPHILS % 58.5 % (36.0-66.0); PLATELET COUNT, AUTOMATED 507 10^3/uL (150-450); RED BLOOD COUNT 4.07 10^6/uL (4.00-5.40)
[2018-08-19 16:04] LABS: ALBUMIN 3.1 GM/DL (3.2-5.2); ALT/SGPT 48 U/L (12-78); BILIRUBIN,TOTAL 0.2 MG/DL (0.2-1.0); BLOOD UREA NITROGEN 14 MG/DL (7-18); CALCIUM LEVEL 9.5 MG/DL (8.5-10.1); CARBON DIOXIDE LEVEL 24 MEQ/L (21-32); CHLORIDE LEVEL 103 MEQ/L (98-107); CREATININE FOR GFR 0.94 MG/DL (0.55-1.30); GLOMERULAR FILTRATION RATE > 60.0 (>51); GLUCOSE, FASTING 315 MG/DL (70-100); POTASSIUM SERUM 4.8 MEQ/L (3.5-5.1); SODIUM LEVEL 138 MEQ/L (136-145)
== END ==
LOC: M LABDRAW1 12:28
PROVIDERS: ATTEND Family Medicine
DX: J18.1 Lobar pneumonia, unspecified organism (principal)

== ENCOUNTER → 2018-09-21 | Outpatient (REF) | payer MEDICARE, MEDICAID ==
[2018-09-21 14:32] LABS: HEMOGLOBIN A1c 8.9 %
== END ==
LOC: M SFHCPLAZ 09:50
PROVIDERS: ATTEND Family Medicine
DX: E10.65 Type 1 diabetes mellitus with hyperglycemia (principal)
CPT/HCPCS: 36415; 83036; G0463

== ENCOUNTER → 2019-01-25 | Outpatient (REF) | payer MEDICARE, MEDICAID ==
[~2019-01-25] MED LIST changes: -AZIT500T2 PO; +AZIT500T5 PO; +CLON0.5T2 PO; -CLON0.5T8 PO; +OMEP-172 PO; -OMEP20CA4 PO; +OMEP40CA97 PO
[2019-01-25 12:51] LABS: BASO # 0.1 10^3/uL (0.0-0.2); BASO % 1.8 % (0.0-1.0); EOS # 0.4 10^3/uL (0.0-0.5); EOS % 5.8 % (0.0-3.0); HEMATOCRIT 43.5 % (36.0-47.0); HEMOGLOBIN 13.9 g/dl (12.0-15.5); LYMPH # 2.3 10^3/uL (1.5-5.0); LYMPH % 34.8 % (24.0-44.0); MEAN CORPUSCULAR VOLUME 96.9 fl (80.0-96.0); MONO # 0.3 10^3/uL (0.0-0.8); NEUTROPHILS # 3.4 10^3/uL (1.5-8.5); NEUTROPHILS % 52.3 % (36.0-66.0); PLATELET COUNT, AUTOMATED 312 10^3/uL (150-450); RED BLOOD COUNT 4.49 10^6/uL (4.00-5.40); WHITE BLOOD COUNT 6.6 10^3/uL (4.0-10.0)
[2019-01-25 13:38] LABS: ALBUMIN 3.5 GM/DL (3.2-5.2); ALT/SGPT 130 U/L (12-78); BILIRUBIN,TOTAL 0.3 MG/DL (0.2-1.0); BLOOD UREA NITROGEN 13 MG/DL (7-18); CALCIUM LEVEL 9.3 MG/DL (8.5-10.1); CARBON DIOXIDE LEVEL 31 MEQ/L (21-32); CHLORIDE LEVEL 105 MEQ/L (98-107); CHOLESTEROL LEVEL 207 MG/DL (<200); CHOLESTEROL RISK RATIO 2.555 (<5); CREATININE FOR GFR 0.83 MG/DL (0.55-1.30); FERRITIN 49 NG/ML (8-252); FREE T4 0.86 NG/DL (0.76-1.46); GLOMERULAR FILTRATION RATE > 60.0 (>51); GLUCOSE, FASTING 110 MG/DL (70-100); HDL CHOLESTEROL 81 MG/DL (>40); IRON (FE) 68 UG/DL (50-170); LDL CHOLESTEROL 110 MG/DL (<100); NON-HDL-C 126 MG/DL; PERCENT SATURATION 18.8 % (13.2-45.0); POTASSIUM SERUM 4.5 MEQ/L (3.5-5.1); SODIUM LEVEL 142 MEQ/L (136-145); TOTAL 25(OH) VITAMIN D 90.3 NG/ML (30.0-100.0); TOTAL IRON BINDING CAPACITY 362 UG/DL (250-450); TRIGLYCERIDES LEVEL 79 MG/DL (<150)
[2019-01-25 13:40] LABS: MALB URINE SIEMENS 10.6 MG/L; MAU/CREAT RATIO 4.8 MCG/MG (0.0-30.0)
[2019-01-25 13:51] LABS: HEMOGLOBIN A1c 8.6 %
== END ==
LOC: M SFHCPLAZ 10:29
PROVIDERS: ATTEND Nurse Practitioner Family
DX: I10 Essential (primary) hypertension (principal); F40.01 Agoraphobia with panic disorder; E10.65 Type 1 diabetes mellitus with hyperglycemia; D50.9 Iron deficiency anemia, unspecified; E78.2 Mixed hyperlipidemia; E55.9 Vitamin D deficiency, unspecified; Z79.899 Other long term (current) drug therapy
CPT/HCPCS: 36415; 80053; 80061; 82043; 82306; 82728; 83036; 83550; 84439; 84443; 85025; 85046; G0463; G0480

== ENCOUNTER → 2019-06-17 | Outpatient (CLI) | payer MEDICARE, MEDICAID ==
[~2019-06-17] MED LIST changes: +CYCL-707 PO; -CYCL10TA PO; +FIAS100I2 SC; +FLUO20CA22 PO; -MONT10TA2 PO; +MONT10TA4 PO; -OMEP-172 PO; +OMEP1CAP73 PO; +PATIENT COMMENT; +PREG75CA2 PO; -TRAZ-163 PO; +TRAZ-257 PO; +TRES1INJ2 SC; +ZONI100C17 PO; -ZONI100C2 PO
[2019-06-17 10:14] LABS: BASO # 0.1 10^3/uL (0.0-0.2); BASO % 1.3 % (0.0-1.0); EOS # 0.2 10^3/uL (0.0-0.5); EOS % 1.9 % (0.0-3.0); HEMATOCRIT 40.3 % (36.0-47.0); HEMOGLOBIN 13.3 g/dl (12.0-15.5); LYMPH # 1.8 10^3/uL (1.5-5.0); LYMPH % 18.5 % (24.0-44.0); MEAN CORPUSCULAR HEMOGLOBIN 30.9 pg (27.0-33.0); MEAN CORPUSCULAR VOLUME 93.7 fl (80.0-96.0); MONO # 0.6 10^3/uL (0.0-0.8); NEUTROPHILS # 7.2 10^3/uL (1.5-8.5); NEUTROPHILS % 71.9 % (36.0-66.0); PLATELET COUNT, AUTOMATED 296 10^3/uL (150-450)
[2019-06-17 10:46] LABS: ALBUMIN 3.1 GM/DL (3.2-5.2); BILIRUBIN,TOTAL 0.3 MG/DL (0.2-1.0); CALCIUM LEVEL 8.7 MG/DL (8.5-10.1); CREATININE FOR GFR 1.12 MG/DL (0.55-1.30); GLOMERULAR FILTRATION RATE 53.8 (>51); POTASSIUM SERUM 4.1 MEQ/L (3.5-5.1); TOTAL PROTEIN 6.4 GM/DL (6.4-8.2)
[2019-06-17 11:00] LABS: HEMOGLOBIN A1c 9.3 %
[2019-06-17 14:03] LABS: ACETONE/KETONE 2.48 MG/DL (<2.81)
== END ==
LOC: M WUC 09:06
PROVIDERS: ATTEND Family Medicine
DX: E10.42 Type 1 diabetes mellitus with diabetic polyneuropathy (principal)

== ENCOUNTER 2019-06-18 09:01 | Emergency (ER) | payer OTHER, MEDICAID ==
[~2019-06-18] VITALS: Ht 162.6 cm; Wt 63.8 kg
[~2019-06-18 09:01] MED LIST changes: -FIAS100I2 SC; -FLUO20CA22 PO; -PATIENT COMMENT; -PREG75CA2 PO; -TRES1INJ2 SC
[2019-06-18] MEDS ORDERED: NS 1,000 ML IV ONE (09:30)
--- NOTE | 2019-06-18 10:01 | REP ---
Portable chest x-ray: Single view. History: Diabetic ketoacidosis. Comparison chest x-ray: August 13, 2018. Findings: Monitoring electrodes overlie the chest. Lungs are symmetrically aerated and clear. Heart is not enlarged. Pulmonary vasculature is not increased. Impression: Negative portable chest x-ray. Electronically Signed by Noe Faith MD 06/18/2019 09:52 A
[2019-06-18] MEDS ORDERED: ONDANSETRON 4MG/2ML VIAL As Ordered ONE (10:25)
[2019-06-18 10:26] LABS: VENOUS BASE EXCESS -3.4 (-2.0-2.0); VENOUS HCO3 19.3 MEQ/L (23.0-27.0); VENOUS O2 SATURATION 99.1 % (60.0-80.0); VENOUS PARTIAL PRESSURE CO2 28.7 mmHg (38.0-50.0); VENOUS PARTIAL PRESSURE O2 137.4 mmHg (30.0-50.0); VENOUS PH 7.445 UNITS (7.330-7.430); VENOUS STANDARD HCO3 21.7 MEQ/L; VENOUS TOTAL CO2 20.2 MEQ/L (24.0-28.0)
[2019-06-18] MEDS ORDERED: ONDANSETRON 4MG/2ML VIAL IV ONE (10:30)
[2019-06-18 10:31] LABS: BASO # 0.1 10^3/uL (0.0-0.2); BASO % 1.3 % (0.0-1.0); EOS # 0.1 10^3/uL (0.0-0.5); EOS % 1.2 % (0.0-3.0); HEMATOCRIT 39.1 % (36.0-47.0); HEMOGLOBIN 13.2 g/dl (12.0-15.5); LYMPH # 1.6 10^3/uL (1.5-5.0); LYMPH % 18.7 % (24.0-44.0); MEAN CORPUSCULAR HEMOGLOBIN 30.8 pg (27.0-33.0); MEAN CORPUSCULAR HGB CONC 33.8 g/dl (32.0-36.5); MEAN CORPUSCULAR VOLUME 91.1 fl (80.0-96.0); MONO # 0.5 10^3/uL (0.0-0.8); MONO % 5.4 % (0.0-5.0); NEUTROPHILS # 6.4 10^3/uL (1.5-8.5); NEUTROPHILS % 73.1 % (36.0-66.0); PLATELET COUNT, AUTOMATED 280 10^3/uL (150-450); RED BLOOD COUNT 4.29 10^6/uL (4.00-5.40); WHITE BLOOD COUNT 8.7 10^3/uL (4.0-10.0)
[2019-06-18 10:54] LABS: HEMOGLOBIN A1c 9.1 %
[2019-06-18 10:56] LABS: OSMOLALITY SERUM 288 MOSM/KG (275-295)
[2019-06-18 11:04] LABS: ALT/SGPT 98 U/L (12-78); BILIRUBIN,DIRECT < 0.1 MG/DL (0.0-0.2); BILIRUBIN,TOTAL 0.4 MG/DL (0.2-1.0); CK-MB VALUE MASS 1.4 NG/ML (<3.6); CPK CREATINE PHOSPHOKINASE 103 U/L (26-192); LIPASE 48 U/L (73-393); MAGNESIUM LEVEL 1.7 MG/DL (1.8-2.4); MB/CK RELATIVE INDEX 1.36 (< OR =4); TOTAL PROTEIN 6.4 GM/DL (6.4-8.2); TROPONIN I < 0.02 NG/ML (< 0.10)
[2019-06-18] MEDS ORDERED: DEXTROSE 50% 50 ML SYRINGE IV STA (11:31)
[2019-06-18] MEDS ORDERED: METOCLOPRAMIDE INJ 10MG/2ML VIAL (J2765 PER 1) As Ordered ONE (11:32)
[2019-06-18] MEDS ORDERED: METOCLOPRAMIDE INJ 10MG/2ML VIAL (J2765 PER 1) IV ONE (11:45)
[2019-06-18] MEDS ORDERED: ISOVUE-370 76% 100ML VIAL As Ordered ONE (12:29)
[2019-06-18] MEDS ORDERED: KETOROLAC 30 MG/ML 1ML VIAL IV ONE (13:00)
[2019-06-18 14:18] LABS: ACETONE/KETONE 20.78 MG/DL (<2.81)
--- NOTE | 2019-06-18 14:43 | REP ---
CT ABDOMEN PELVIS WITH IV BUT WITHOUT ORAL CONTRAST: HISTORY: Nausea. Comparison CT study August 12, 2018. CT CONTRAST DOSE: 100 mL of intravenous Isovue 370. CT FINDINGS: Preliminary digital pleater hand radiograph shows a normal bowel gas pattern. The lung bases are clear on axial CT images. No pleural effusion is seen. The liver contains a granulomatous calcification posteriorly. It is otherwise homogeneous. Gallbladder is surgically absent. The spleen is unremarkable. The patient is status post gastric bypass procedure. Normal adrenal glands are observed. The kidneys enhance symmetrically. Mild cortical scarring is seen posteriorly in the right upper pole of the kidney unchanged. There is no evidence of hydronephrosis or calculus. There is no abnormality visible in the pancreas. No retroperitoneal mass or adenopathy is observed. Normal caliber aorta. Some vascular calcification is seen. Small and large bowel loops are normal in caliber and distribution in the abdomen. There is a suture line at the cecal tip consistent with the history of previous appendectomy. The uterus is surgically absent. Urinary bladder shrestha are intact. No abdominal wall defect is seen. No pelvic mass or adenopathy is seen. Bone window settings show no bony destructive lesion. IMPRESSION: Patient status post gastric bypass, cholecystectomy, appendectomy, and hysterectomy. Mild cortical scarring upper pole right kidney. No acute abdominal or pelvic abnormality. Electronically Signed by Noe Faith MD 06/18/2019 02:52 P
--- NOTE | 2019-06-18 15:39 | ECGEPIP ---
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
[2019-06-18 15:47] LABS: BLOOD UREA NITROGEN 16 MG/DL (7-18); CALCIUM LEVEL 8.9 MG/DL (8.5-10.1); CARBON DIOXIDE LEVEL 22 MEQ/L (21-32); CHLORIDE LEVEL 110 MEQ/L (98-107); CREATININE FOR GFR 0.88 MG/DL (0.55-1.30); GLOMERULAR FILTRATION RATE > 60.0 (>51); GLUCOSE, FASTING 78 MG/DL (70-100); POTASSIUM SERUM 4.9 MEQ/L (3.5-5.1); SODIUM LEVEL 141 MEQ/L (136-145)
[2019-06-18] MEDS ORDERED: ONDA4TAB6 PO (17:01)
[2019-06-18 17:12] VITALS: BP 152/68
[2019-06-19] MEDS ORDERED: TRES1INJ2 SC (10:07)
[2019-06-19] MEDS ORDERED: PREG75CA2 PO (10:07)
[2019-06-19] MEDS ORDERED: METH1TAB40 PO (10:07)
[2019-06-19] MEDS ORDERED: FIAS100I2 SC (10:07)
[2019-06-19] MEDS ORDERED: VITAD1000T PO (10:07)
[2019-06-19] MEDS ORDERED: PATIENT COMMENT (10:08)
== END 2019-06-18 17:20 | disposition home or self-care (01) ==
LOC: M ED 09:01
DX: E11.649 Type 2 diabetes mellitus with hypoglycemia without coma (principal); R11.2 Nausea with vomiting, unspecified; R35.0 Frequency of micturition; R51 Headache; I11.9 Hypertensive heart disease without heart failure; J45.909 Unspecified asthma, uncomplicated; K21.9 Gastro-esophageal reflux disease without esophagitis; K58.9 Irritable bowel syndrome, unspecified; I25.10 Atherosclerotic heart disease of native coronary artery without angina pectoris; F17.200 Nicotine dependence, unspecified, uncomplicated; Z79.899 Other long term (current) drug therapy; Z79.82 Long term (current) use of aspirin

== ENCOUNTER 2019-06-19 07:51 | Inpatient (IN) | payer OTHER, MEDICAID ==
[~2019-06-19] VITALS: Ht 162.6 cm; Wt 62.3 kg
[2019-06-19] VITALS (7 sets, daily range): BP systolic 121–130; BP diastolic 57–75
[2019-06-19 09:02] LABS: BASO # 0.1 10^3/uL (0.0-0.2); BASO % 0.7 % (0.0-1.0); HEMATOCRIT 43.6 % (36.0-47.0); HEMOGLOBIN 13.3 g/dl (12.0-15.5); LYMPH # 0.6 10^3/uL (1.5-5.0); LYMPH % 2.9 % (24.0-44.0); MEAN CORPUSCULAR HEMOGLOBIN 30.9 pg (27.0-33.0); MEAN CORPUSCULAR HGB CONC 30.5 g/dl (32.0-36.5); MEAN CORPUSCULAR VOLUME 101.4 fl (80.0-96.0); MONO # 1.1 10^3/uL (0.0-0.8); MONO % 5.3 % (0.0-5.0); NEUTROPHILS % 90.4 % (36.0-66.0); PLATELET COUNT, AUTOMATED 371 10^3/uL (150-450); WHITE BLOOD COUNT 21.1 10^3/uL (4.0-10.0)
[2019-06-19 09:05] LABS: VENOUS BASE EXCESS -25.8 (-2.0-2.0); VENOUS HCO3 5.8 MEQ/L (23.0-27.0); VENOUS O2 SATURATION 80.8 % (60.0-80.0); VENOUS PARTIAL PRESSURE CO2 28.2 mmHg (38.0-50.0); VENOUS PARTIAL PRESSURE O2 58.8 mmHg (30.0-50.0); VENOUS PH 6.928 UNITS (7.330-7.430); VENOUS STANDARD HCO3 6.8 MEQ/L; VENOUS TOTAL CO2 6.6 MEQ/L (24.0-28.0)
[2019-06-19] MEDS ORDERED: PROMETHAZINE INJ 25 MG/ML VIAL (J2550) IM ONE (09:15)
[2019-06-19 09:19] LABS: HEMOGLOBIN A1c 9.4 %
[2019-06-19 09:23] LABS: BLOOD UREA NITROGEN 22 MG/DL (7-18); CALCIUM LEVEL 8.7 MG/DL (8.5-10.1); CARBON DIOXIDE LEVEL 9 MEQ/L (21-32); CHLORIDE LEVEL 101 MEQ/L (98-107); CREATININE FOR GFR 1.64 MG/DL (0.55-1.30); GLOMERULAR FILTRATION RATE 34.6 (>51); GLUCOSE, FASTING 729 MG/DL (70-100); POTASSIUM SERUM 6.6 MEQ/L (3.5-5.1); SODIUM LEVEL 133 MEQ/L (136-145)
[2019-06-19] MEDS ORDERED: INSULIN HUMAN REGULAR 100 UNITS in NS 99 ML IV SCH (09:24)
[2019-06-19] MEDS ORDERED: NS 1,000 ML IV ONE ×2 (09:30→10:30)
[2019-06-19 09:41] LABS: MAGNESIUM LEVEL 2.1 MG/DL (1.8-2.4); PHOSPHORUS LEVEL 7.7 MG/DL (2.5-4.9)
[2019-06-19] MEDS ORDERED: METH1TAB40 PO (10:07)
[2019-06-19] MEDS ORDERED: TRES1INJ2 SC (10:07)
[2019-06-19] MEDS ORDERED: PREG75CA2 PO (10:07)
[2019-06-19] MEDS ORDERED: VITAD1000T PO (10:07)
[2019-06-19] MEDS ORDERED: FIAS100I2 SC (10:07)
[2019-06-19] MEDS ORDERED: PATIENT COMMENT (10:08)
[2019-06-19] MEDS ORDERED: INSULIN IV RATE CHANGE DOCUMENTATION ML/HR XX SCH (10:15)
[2019-06-19 10:18] LABS: CK-MB VALUE MASS 2.9 NG/ML (<3.6); CPK CREATINE PHOSPHOKINASE 114 U/L (26-192); MB/CK RELATIVE INDEX 2.54 (< OR =4); TROPONIN I < 0.02 NG/ML (< 0.10)
--- NOTE | 2019-06-19 10:25 | HPEPDOC ---
[facility] Medical History & Physical Date of Admission June 19, 2019 Date of Service: June 19, 2019 History and Physical CHIEF COMPLAINT: n/v HISTORY OF PRESENT ILLNESS: Pt is a 53yF with PMH of IDDM, Asthma, GERD, HTN, Anemia (chronic), Chronic RUQ abd pain, Chronic loose stool/diarrhea, IBS, Environmental allergies, Chronic low back pain p/w with DKA. Patient came to the ED yesterday with complaints of hypoglycemia, nausea, and vomiting. Nausea and vomiting started about 2 days ago, patient denies any sick contacts, fevers, cough, and reports last DKA episode was a couple years ago. She reports chest pain in the substernal region after multiple episodes of nausea and vomiting. She denies any shortness of breath, fevers, cough, abdominal pain, dysuria. She came to the ED yesterday, glucose obtained was 78, it is noted that her PCP subsequently changed her DM medication medications which patient became nonc ompliant (she reports not to take any insulin because she didn't feel good) and returned today with worsening nausea, vomiting, and is currently in DKA with leukocytosis. In the ED, vital signs include heart rate of 122, blood pressure 149/65, saturating well on room air, afebrile, respiratory rate 20. Labs include a CBC of 21.1, MCV of 101.4, H&H and platelets grossly within normal limits, sodium of 133, glucose of 729, potassium 6.6, anion gap 23, BUN 22, creatinine 1.64. In the ED, patient was started on insulin drip, was given Phenergan 5 mg IM 1, and a bolus of normal saline. Patient weighs 63 kg. Chest x-ray appears to be no acute processes on my read, pending official read. I personally reviewed her EKG revealing nonspecific ST changes. Review of Echo 01/15/18 reveals preserved LV systolic function and grade 1 diastolic dysfunction. ROS: 10 point review systems negative except per above. PMH: See above. PSH: See above, appy, nishi, ERCP, EVIE, L leg darren s/p fx Family history: Reviewed and noncontributory, father from [place] Social history: former smoker, No tobacco, alcohol, or illicits Medications: Reviewed Allergies: NKDA PHYSICAL EXAMINATION: VITAL SIGNS: Please see below. GENERAL: Elderly female, appears fatigued but in no distress HEENT: Normocephalic, atraumatic, moist mucous membranes NECK: Supple CARDIOVASCULAR EXAMINATION: S1, S2 RESPIRATORY EXAMINATION: CTAB ABDOMINAL EXAMINATION: Soft, nontender, nondistended, positive bowel sounds EXTREMITIES: no edema SKIN: No rash NEUROLOGICAL EXAMINATION: Awake PSYCHIATRIC EXAMINATION: Has capacity Pt is a 53yF with PMH of IDDM, Asthma, GERD, HTN, Anemia (chronic), Chronic RUQ abd pain, Chronic loose stool/diarrhea, IBS, Environmental allergies, Chronic low back pain p/w with DKA weekly secondary to noncompliance versus infection. Will admit to ICU, inpatient. #DKA: Likely secondary to noncompliance, A1c is 9.4. Will admit to ICU, DKA protocol. Check BMP q4h., follow-up troponin, likely secondary to demand ischemia, if further increasing will likely transfer to a site that offers cardiac catheterization Follow up with urinalysis, culture, follow-up blood cultures 2, repeat VBG in approximately 12 hours Pt takes trulicity 1.5 mg every weekly, insulin aspartate 5 units before meals, and degludec 30 units daily -Change fluids accordingly, if potassium is 4.9 or greater, we'll continue with half-normal saline in no additional potassium, if potassium is 4.5-4.8, we'll add 10mEQKCl IVF, potassium is 4.0-4.4, we'll add 20mEQKCl IVF, if potassium is 3.5-3.9 we'll add 30mEQKCl IVF, if potassium is <3.5, we'll add 30mEQKCl IVF and add a bolus of 20mEQ in 1/2NS (200cc) -add bicarb #Leukocytosis secondary to stress reaction versus infection, chest x-ray is not suggestive of pneumonia, UA, not suggestive of UTI, obtain blood cultures. Will follow-up obtained on 06/19/2019, hold off on additional antibiotics at this time, consider abdominal ultrasound #pseudohyponatremia secondary to above, patient had one bolus in the ED, will add on a second bolus and maintained fluids with half-normal saline #Hyperkalemia, likely secondary to DKA, without peaked T waves, troponin 2 negative, well continue with fluids and monitor with EKG and potassium levels, since patient is already on insulin drip, will also administer Kayexalate and calcium gluconate, will consider Lasix if fluid overloaded, if worsening along with CRISTINE, well consider nephrology consult for dialysis, magnesium levels within normal limits, will recheck in the a.m. #CRISTNIE, likely secondary to above, and hypovolemic status with nausea, vomiting, continue IVF, see above #Hyperphosphatemia secondary to above, continue IVF, repeat in a.m. #Asthma: Continue home inhaler #HFpEF/HTN/HLD: Continue home meds #Mood disorders: Continue home meds #anemia: cont home Fe #back pain: cont home meds #GERD: cont home meds DVT ppx: heparin Full code Dispo: Patient will be inpatient for at least 2 midnights Vital Signs Vital Signs Date Time Temp Pulse Resp B/P (MAP) Pulse Ox O2 Delivery O2 Flow Rate FiO2 06/19/19 08:09 98.0 122 20 149/65 (93) 98 Room Air Laboratory Data Labs 24H Laboratory Tests 2 06/19/19 08:32: Immature Granulocyte % (Auto) 0.7, Neutrophils (%) (Auto) 90.4H, Lymphocytes (%) (Auto) 2.9L, Monocytes (%) (Auto) 5.3H, Eosinophils (%) (Auto) 0.0, Basophils (%) (Auto) 0.7, Neutrophils # (Auto) 19.0H, Lymphocytes # (Auto) 0.6L, Monocytes # (Auto) 1.1H, Eosinophils # (Auto) 0.0, Basophils # (Auto) 0.1, Nucleated Red Blood Cells % (auto) 0.0, Blood Gas Bicarbonate Standard 6.8, Venous Blood pH 6.928L, Venous Blood Partial Pressure CO2 28.2L, Venous Blood Partial Pressure O2 58.8H, Venous Blood Total Carbon Dioxide 6.6L, Venous Blood HCO3 5.8L, Venous Blood Oxygen Saturation 80.8H, Venous Blood Base Excess -25.8L, Estimated Mean Plasma Glucose 223H, Hemoglobin A1c 9.4 06/19/19 08:33: Anion Gap 23H, Glomerular Filtration Rate 34.6L, Calcium Level 8.7, Phosphorus Level 7.7H, Magnesium Level 2.1, Total Creatine Kinase 114, Creatine Kinase MB 2.9, Creatine Kinase MB Relative Index 2.54, Troponin I < 0.02 CBC/BMP Laboratory Tests 06/19/19 08:32 06/19/19 08:33 Home Medications Scheduled Aspirin (Aspirin EC) 81 Mg Tabec, 81 MG PO DAILY Atorvastatin Calcium (Atorvastatin Calcium) 20 Mg Tablet, 20 MG PO DAILY Cholecalciferol (Vitamin D3) (Vitamin D3) 1,000 Unit Tablet, 1,000 UNITS PO DAILY Clonazepam (Clonazepam) 1 Mg Tablet, 1 MG PO TID Dulaglutide (Trulicity) 1.5 Mg/0.5 Ml Inj, 1.5 MG SC QWEEK TAKES ON WEDNESDAYS Ferrous Sulfate (Ferrous Sulfate) 325 Mg Tab, 325 MG PO DAILY Insulin Aspart (Niacinamide) (Fiasp 100 Unit/ml Flextouch) 100 Unit/1 Ml Insuln.pen, 5 UNITS SC AC Insulin Degludec (Tresiba Flextouch U-100) 100 Unit/1 Ml Insuln.pen, 30 UNIT SC DAILY Methocarbamol (Methocarbamol) 500 Mg Tablet, 500 MG PO BID Multivitamins (Thera M Plus Tablet) 1 Tab Tab, 1 TAB PO DAILY Pantoprazole Sodium (Pantoprazole Sodium) 40 Mg Tablet.dr, 40 MG PO DAILY Pregabalin (Pregabalin) 75 Mg Capsule, 75 MG PO BID Sucralfate (Sucralfate) 1 Gm Tablet, 1 GM PO BID Tizanidine HCl (Tizanidine HCl) 4 Mg Tablet, 4 MG PO TID Varenicline (Chantix) 1 Mg Tablet, 1 MG PO BID Scheduled PRN Albuterol Sulfate (Ventolin Hfa) 108 Mcg/Act Aer, 2 PUFFS INH Q4H PRN for SHORTNESS OF BREATH Ammonium Lactate (Ammonium Lactate) 12 % Cre, 1 DOSE TOP DAILY PRN for PAIN APPLY TO FEET Docusate Sodium (Colace) 100 Mg Cap, 100 MG PO BID PRN for CONSTIPATION Glucagon,Human Recombinant (Glucagon Emergency Kit) 1 Mg Kit, 1 MG IM ASDIRECTED PRN for LOW BLOOD SUGAR Lidocaine (Lidocaine) 120 Gm Oint...g., 1 DOSE TOP DAILY PRN for BACK PAIN Ondansetron (Ondansetron Odt) 4 Mg Tab.rapdis, 4 MG PO TID PRN for NAUSEA Oxycodone HCl/Acetaminophen (Oxycodone-Acetaminophen 5-325) 1 Each Tablet, 1 TAB PO BID PRN for PAIN Polyethylene Glycol 3350 (Miralax) 119 Gm Powder, 17 GM PO DAILY PRN for CONSTIPATION Propylene Glycol/Peg 400 (Systane 0.3-0.4% Eye Drops) 15 Ml Sade, 1 DROP OU QID PRN for DRY EYES Sodium Chloride (Cloud) 0.65 % Spr, 2 SPRAY NA QID PRN for NASAL DRYNESS Trazodone HCl (Trazodone HCl) 50 Mg Tablet, 50 MG PO QHS PRN for SLEEP Miscellaneous Medications [Patient Comment] UNABLE TO VERIFY MEDICATIONS WITH PATIENT - MED LIST OBTAINED FROM PHARMACY. Allergies Coded Allergies: TAPE (Verified Allergy, Mild, PLASTIC TAPE- RASH, 09/26/17) BANDAIDS -RASH prednisone (Verified Adverse Reaction, Intermediate, EXTREME ELEVATED BLOOD SUGAR, 06/08/18) Gluten Flour (Verified Adverse Reaction, Mild, diarrhea, 09/26/17) gluten (Verified Adverse Reaction, Mild, DIARRHEA, 06/08/18) A-FIB/CHADSVASC A-FIB History Current/History of A-Fib/PAF?: No JULIOCESAR HONG MD June 19, 2019 10:25
[2019-06-19] MEDS ORDERED: MOM 30ML SUSPENSION UDC PO PRN (10:30)
[2019-06-19] MEDS ORDERED: MAALOX 30 ML SUSP *UDC PO PRN (10:30)
[2019-06-19] MEDS ORDERED: SODIUM BICARBONATE 8.4% INJ 50 ML SYRINGE IV SCH (11:00)
[2019-06-19] MEDS: INSULIN IV RATE CHANGE DOCUMENTATION ML/HR XX SCH ×9 (11:10→23:00)
--- NOTE | 2019-06-19 11:35 | REP ---
CHEST PORTABLE: REASON FOR EXAM: DKA. Followup from 06/18/2019, which was reviewed. FINDINGS: The technique utilized in obtaining the radiograph has magnified the cardiac silhouette and accentuated the interstitial markings. The superior mediastinal structures are midline. The cardiac silhouette is unremarkable in size, shape, and position. The diaphragmatic surfaces of the lungs are regular, and the costophrenic angles are clear. The pulmonary alanis are clear. The imaged osseous structures are intact. IMPRESSION: There is no acute cardiopulmonary disease. No significant change from the prior exam. Electronically Signed by Klever Carrasco DO 06/19/2019 12:58 P
[2019-06-19] MEDS ORDERED: NS 0.45% 1,000 ML IV SCH (12:00)
[2019-06-19] MEDS: INSULIN HUMAN REGULAR 100 UNITS in NS 99 ML IV SCH (12:00)
[2019-06-19] MEDS: ONDANSETRON 4MG/2ML VIAL IV PRN ×2 (12:04→18:50)
[2019-06-19] MEDS: PANTOPRAZOLE 40MG VIAL (C9113 PER 1) IV SCH (12:04)
[2019-06-19 13:09] LABS: BLOOD UREA NITROGEN 24 MG/DL (7-18); CALCIUM LEVEL 8.3 MG/DL (8.5-10.1); CARBON DIOXIDE LEVEL 4 MEQ/L (21-32); CHLORIDE LEVEL 106 MEQ/L (98-107); CREATININE FOR GFR 1.75 MG/DL (0.55-1.30); GLOMERULAR FILTRATION RATE 32.1 (>51); GLUCOSE, FASTING 704 MG/DL (70-100); PHOSPHORUS LEVEL 7.5 MG/DL (2.5-4.9); POTASSIUM SERUM 6.7 MEQ/L (3.5-5.1); SODIUM LEVEL 138 MEQ/L (136-145); TROPONIN I < 0.02 NG/ML (< 0.10)
[2019-06-19] MEDS ORDERED: CALCIUM CHLORIDE 10% 1 GM/10 ML SYR IV STA (13:19)
[2019-06-19] MEDS: HEPARIN SOD (PORCINE) 5000UNITS/ML VIAL (J1644 PER 1000UNITS) SC SCH ×2 (13:52→23:23)
[2019-06-19] MEDS: ACETAMINOPHEN TAB 650MG DOSE (2X325MG) PO PRN ×2 (13:55→18:45)
[2019-06-19] MEDS ORDERED: SOD POLYSTYRENE SULFONATE SUSP 15 GM/60 ML UD PO ONE (14:00)
[2019-06-19] MEDS ORDERED: GLUCAGON INJ 1MG VIAL SC PRN (16:15)
[2019-06-19] MEDS: D5W/0.45% SODIUM CHLORIDE 1,000 ML IV SCH ×2 (16:31→23:23)
[2019-06-19 17:03] LABS: CREATININE FOR GFR 1.48 MG/DL (0.55-1.30); PHOSPHORUS LEVEL 1.3 MG/DL (2.5-4.9); POTASSIUM SERUM 4.2 MEQ/L (3.5-5.1); TROPONIN I 0.05 NG/ML (< 0.10)
[2019-06-19 17:50] LABS: ALBUMIN 2.9 GM/DL (3.2-5.2); BILIRUBIN,TOTAL 0.4 MG/DL (0.2-1.0); TOTAL PROTEIN 6.7 GM/DL (6.4-8.2)
[2019-06-19] MEDS ORDERED: POTASSIUM PHOSPHATE INJ 20 MMOL in D5W 250 ML IV ONE (18:00)
[2019-06-19 20:38] LABS: VENOUS BASE EXCESS -8.4 (-2.0-2.0); VENOUS HCO3 15.2 MEQ/L (23.0-27.0); VENOUS O2 SATURATION 99.4 % (60.0-80.0); VENOUS PARTIAL PRESSURE CO2 26.3 mmHg (38.0-50.0); VENOUS PARTIAL PRESSURE O2 184.5 mmHg (30.0-50.0); VENOUS PH 7.379 UNITS (7.330-7.430); VENOUS STANDARD HCO3 17.8 MEQ/L
[2019-06-19 21:13] LABS: CALCIUM LEVEL 8.4 MG/DL (8.5-10.1); CREATININE FOR GFR 1.25 MG/DL (0.55-1.30); GLOMERULAR FILTRATION RATE 47.4 (>51); POTASSIUM SERUM 4.4 MEQ/L (3.5-5.1)
[2019-06-20] VITALS (10 sets, daily range): BP systolic 127–164; BP diastolic 64–87
[2019-06-20] MEDS: INSULIN IV RATE CHANGE DOCUMENTATION ML/HR XX SCH ×15 (00:25→16:10)
[2019-06-20 01:10] LABS: CALCIUM LEVEL 8.4 MG/DL (8.5-10.1); CREATININE FOR GFR 1.08 MG/DL (0.55-1.30); GLOMERULAR FILTRATION RATE 56.1 (>51); MAGNESIUM LEVEL 1.7 MG/DL (1.8-2.4); PHOSPHORUS LEVEL 3.3 MG/DL (2.5-4.9); POTASSIUM SERUM 3.7 MEQ/L (3.5-5.1)
[2019-06-20] MEDS: ONDANSETRON 4MG/2ML VIAL IV PRN ×4 (01:30→17:15)
[2019-06-20] MEDS: INSULIN HUMAN REGULAR 100 UNITS in NS 99 ML IV SCH ×2 (02:17→06:00)
[2019-06-20] MEDS: D5W/0.45% SODIUM CHLORIDE 1,000 ML IV SCH ×3 (03:54→14:20)
[2019-06-20] MEDS ORDERED: PROMETHAZINE INJ 25 MG/ML VIAL (J2550) IV PRN (04:45)
[2019-06-20 05:13] LABS: CALCIUM LEVEL 7.7 MG/DL (8.5-10.1); CREATININE FOR GFR 1.11 MG/DL (0.55-1.30); GLOMERULAR FILTRATION RATE 54.3 (>51); POTASSIUM SERUM 3.1 MEQ/L (3.5-5.1)
[2019-06-20 05:28] LABS: MAGNESIUM LEVEL 1.7 MG/DL (1.8-2.4); PHOSPHORUS LEVEL 2.5 MG/DL (2.5-4.9)
[2019-06-20] MEDS: HEPARIN SOD (PORCINE) 5000UNITS/ML VIAL (J1644 PER 1000UNITS) SC SCH ×3 (06:03→20:14)
[2019-06-20] MEDS: KCL 10MEQ/100ML SWI (KRUN) 10 MEQ in IV 1 EA IV SCH ×2 (06:09→07:19)
[2019-06-20] MEDS: MAALOX 30 ML SUSP *UDC PO PRN (06:09)
[2019-06-20] MEDS: MAG SULF 1GM/100ML (MAG RUN) 1 GM in IV 1 EA IV SCH ×2 (06:42→07:19)
[2019-06-20 06:54] LABS: BASO % 0.3 % (0.0-1.0); EOS % 0.2 % (0.0-3.0); HEMATOCRIT 32.9 % (36.0-47.0); LYMPH % 14.8 % (24.0-44.0); MEAN CORPUSCULAR HEMOGLOBIN 30.9 pg (27.0-33.0); MEAN CORPUSCULAR HGB CONC 33.7 g/dl (32.0-36.5); MEAN CORPUSCULAR VOLUME 91.6 fl (80.0-96.0); MONO # 0.9 10^3/uL (0.0-0.8); MONO % 6.3 % (0.0-5.0); NEUTROPHILS # 10.5 10^3/uL (1.5-8.5); PLATELET COUNT, AUTOMATED 278 10^3/uL (150-450); RED BLOOD COUNT 3.59 10^6/uL (4.00-5.40); WHITE BLOOD COUNT 13.5 10^3/uL (4.0-10.0)
[2019-06-20 06:58] LABS: HEMOGLOBIN 11.1 g/dl (12.0-15.5)
[2019-06-20] MEDS ORDERED: KCL 10MEQ/100ML SWI (KRUN) 10 MEQ in IV 1 EA IV SCH (07:00)
[2019-06-20] MEDS: PANTOPRAZOLE 40MG VIAL (C9113 PER 1) IV SCH (07:57)
[2019-06-20] MEDS ORDERED: POTASSIUM CHLORIDE 10 MEQ SR TABLET PO ONE ×2 (08:00→18:00)
[2019-06-20] MEDS ORDERED: LEVEMIR (INSULIN DETEMIR) 1 UNITS/0.01ML SC SCH (09:00)
[2019-06-20] MEDS ORDERED: METOCLOPRAMIDE 5 MG TAB PO SCH (09:00)
[2019-06-20] MEDS ORDERED: FLUoxetine 20 MG CAP PO SCH (09:00)
[2019-06-20 09:23] LABS: BLOOD UREA NITROGEN 10 MG/DL (7-18); CALCIUM LEVEL 8.3 MG/DL (8.5-10.1); CARBON DIOXIDE LEVEL 22 MEQ/L (21-32); CHLORIDE LEVEL 109 MEQ/L (98-107); CREATININE FOR GFR 0.98 MG/DL (0.55-1.30); GLOMERULAR FILTRATION RATE > 60.0 (>51); GLUCOSE, FASTING 172 MG/DL (70-100); POTASSIUM SERUM 3.6 MEQ/L (3.5-5.1); SODIUM LEVEL 140 MEQ/L (136-145)
--- NOTE | 2019-06-20 10:35 | IPNPDOC ---
Date Seen The patient was seen on 06/20/19. Progress Note SUBJECTIVE: Patient's anion gap closed, however, she still has nausea and vomiting. She is hypokalemic and hypomagnesemic, which was replaced. Leukocytosis declined, pt is febrile, hold Abx d/t unkown source of infection if present, repeat VBG improved, will schedule reglan, Phos wnl, Mg 1.7, K 3.6. U/A not suggestive of UTI. OBJECTIVE PHYSICAL EXAMINATION: PHYSICAL EXAMINATION: VITAL SIGNS: Please see below. GENERAL: Elderly female, appears fatigued but in no distress HEENT: Normocephalic, atraumatic, moist mucous membranes NECK: Supple CARDIOVASCULAR EXAMINATION: S1, S2 RESPIRATORY EXAMINATION: CTAB ABDOMINAL EXAMINATION: Soft, nontender, nondistended, positive bowel sounds EXTREMITIES: no edema SKIN: No rash NEUROLOGICAL EXAMINATION: Awake PSYCHIATRIC EXAMINATION: no SI/HI, +depression, (changes in sleep, concentration, appetite, interest) Pt is a 53yF with PMH of IDDM, Asthma, GERD, HTN, Anemia (chronic), Chronic RUQ abd pain, Chronic loose stool/diarrhea, IBS, Environmental allergies, Chronic low back pain p/w with DKA weekly secondary to noncompliance versus infection. Admit to ICU, inpatient, anticipate transition to PCU. #DKA: Likely secondary to noncompliance, A1c is 9.4. Admit to ICU, DKA protocol. Check BMP q4h., follow-up troponin, likely secondary to demand ischemia, if further increasing will likely transfer to a site that offers cardiac catheterization -u/a neg, pending blood cultures 2 -VBG stable -plan to resume home DM meds: Pt takes trulicity 1.5 mg every weekly, insulin aspartate 5 units before meals, and degludec 30 units daily -transition to SQ when n/v controlled, likely secondary to DM gastroparesis, start reglan 5mg TID -Change fluids accordingly, if potassium is 4.9 or greater, we'll continue with half-normal saline in no additional potassium, if potassium is 4.5-4.8, we'll add 10mEQKCl IVF, potassium is 4.0-4.4, we'll add 20mEQKCl IVF, if potassium is 3.5-3.9 we'll add 30mEQKCl IVF, if potassium is <3.5, we'll add 30mEQKCl IVF and add a bolus of 20mEQ in 1/2NS (200cc) -add bicarb #depression, since starting reglan, contraindicated with SSRI, once n/v controlled, will consider transitioning to Phenergan can consider starting fluoxetine 20mg QD d/t drug interaction category D with reglan and SSRI #Leukocytosis secondary to stress reaction versus infection, has intermittent fever, chest x-ray is not suggestive of pneumonia, UA, not suggestive of UTI, f/u blood cultures obtained on 06/19/2019, hold off on additional antibiotics at this time, CT abd and pelvis 06/18/19 not suggestive of infection #pseudohyponatremia secondary to above, patient had one bolus in the ED, will add on a second bolus and maintained fluids with half-normal saline #Hyperkalemia, stable, likely secondary to DKA -without peaked T waves, troponin 2 negative, resolved, will continue with fluids and monitor with EKG and potassium levels, since patient is already on insulin drip, will also administer Kayexalate and calcium gluconate, will consider Lasix if fluid overloaded, if worsening along with CRISTINE, well consider nephrology consult for dialysis, magnesium levels within normal limits, will recheck in the a.m. #CRISTINE, likely secondary to above, and hypovolemic status with nausea, vomiting, resolved, continue IVF, see above #Hyperphosphatemia secondary to above, resolved, continue IVF #Asthma: Continue home inhaler #HFpEF/HTN/HLD: Continue home meds #Mood disorders: Continue home meds #anemia: cont home Fe #back pain: cont home meds #GERD: cont home meds DVT ppx: heparin Full code Dispo: Patient will be inpatient for at least 2 midnights VS, I&O, 24H, [place] Vital Signs/I&O Vital Signs Date Time Temp Pulse Resp B/P (MAP) Pulse Ox O2 Delivery O2 Flow Rate FiO2 06/20/19 08:00 100.0 94 20 149/87 (107) 99 Room Air I&O- Last 24 Hours up to 6 AM 06/20/19 06:00 Intake Total 5303 ml Output Total 925 ml Balance 4378 ml Laboratory Data 24H LABS Laboratory Tests 2 06/19/19 11:09: Anion Gap 28H, Glomerular Filtration Rate 32.1L, Calcium Level 8.3L, Phosphorus Level 7.5H, Troponin I < 0.02, Ethyl Alcohol Level < 0.003 06/19/19 11:37: Bedside Glucose Confirm (Misc) 629*H 06/19/19 12:03: Bedside Glucose (Misc Panel) 585*H 06/19/19 13:06: Bedside Glucose (Misc Panel) 371H 06/19/19 14:06: Bedside Glucose (Misc Panel) 309H 06/19/19 14:50: Bedside Glucose (Misc Panel) 227H 06/19/19 15:59: Bedside Glucose (Misc Panel) 131H 06/19/19 16:21: Anion Gap 12, Glomerular Filtration Rate 39.0L, Calcium Level 9.0, Phosphorus Level 1.3#L, Total Bilirubin 0.4, Aspartate Amino Transf (AST/SGOT) 25, Alanine Aminotransferase (ALT/SGPT) 72, Alkaline Phosphatase 90, Troponin I 0.05#, Total Protein 6.7, Albumin 2.9L, Albumin/Globulin Ratio 0.76L 06/19/19 16:57: Bedside Glucose (Misc Panel) 145H 06/19/19 17:48: Bedside Glucose (Misc Panel) 151H 06/19/19 18:47: Bedside Glucose (Misc Panel) 142H 06/19/19 20:01: Bedside Glucose (Misc Panel) 164H 06/19/19 20:30: Blood Gas Bicarbonate Standard 17.8, Venous Blood pH 7.379, Venous Blood Partial Pressure CO2 26.3L, Venous Blood Partial Pressure O2 184.5H, Venous Blood Total Carbon Dioxide 16.0L, Venous Blood HCO3 15.2L, Venous Blood Oxygen Saturation 99.4H, Venous Blood Base Excess -8.4L, Anion Gap 11, Glomerular Filtration Rate 47.4L, Calcium Level 8.4L 06/19/19 21:18: Bedside Glucose (Misc Panel) 170H 06/19/19 22:29: Bedside Glucose (Misc Panel) 126H 06/19/19 23:03: Bedside Glucose (Misc Panel) 136H 06/20/19 00:28: Bedside Glucose (Misc Panel) 161H, Anion Gap 10, Glomerular Filtration Rate 56.1, Calcium Level 8.4L, Phosphorus Level 3.3#, Magnesium Level 1.7L 06/20/19 01:11: Bedside Glucose (Misc Panel) 152H 06/20/19 02:12: Bedside Glucose (Misc Panel) 123H 06/20/19 03:14: Bedside Glucose (Misc Panel) 168H 06/20/19 03:57: Bedside Glucose (Misc Panel) 178H 06/20/19 04:27: Immature Granulocyte % (Auto) 0.4, Neutrophils (%) (Auto) 78.0H, Lymphocytes (%) (Auto) 14.8L, Monocytes (%) (Auto) 6.3H, Eosinophils (%) (Auto) 0.2, Basophils (%) (Auto) 0.3, Neutrophils # (Auto) 10.5H, Lymphocytes # (Auto) 2.0, Monocytes # (Auto) 0.9H, Eosinophils # (Auto) 0.0, Basophils # (Auto) 0.0, Nucleated Red Blood Cells % (auto) 0.0, Anion Gap 8, Glomerular Filtration Rate 54.3, Calcium Level 7.7L, Phosphorus Level 2.5#, Magnesium Level 1.7L 06/20/19 05:00: Bedside Glucose (Misc Panel) 142H 06/20/19 06:04: Bedside Glucose (Misc Panel) 153H 06/20/19 07:02: Bedside Glucose (Misc Panel) 179H 06/20/19 08:05: Bedside Glucose (Misc Panel) 148H 06/20/19 08:48: Anion Gap 9, Glomerular Filtration Rate > 60.0, Calcium Level 8.3L 06/20/19 09:08: Bedside Glucose (Misc Panel) 182H 06/20/19 09:58: Bedside Glucose (Misc Panel) 156H CBC/BMP Laboratory Tests 06/19/19 11:09 06/19/19 16:21 06/19/19 20:30 06/20/19 00:28 06/20/19 04:27 06/20/19 08:48 Microbiology Microbiology 06/19/19 Blood Culture, Received Pending 06/19/19 Blood Culture, Received Pending JULIOCESAR HONG MD June 20, 2019 10:35
--- NOTE | 2019-06-20 11:14 | ECGEPIP ---
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
[2019-06-20] MEDS ORDERED: HumaLOG INSULIN (NovoLOG) PER UNIT SC SCH (12:00)
[2019-06-20] MEDS: HumaLOG INSULIN (NovoLOG) PER UNIT SC SCH ×3 (12:00→20:15)
[2019-06-20] MEDS: ACETAMINOPHEN TAB 650MG DOSE (2X325MG) PO PRN ×2 (12:23→17:15)
[2019-06-20 12:45] LABS: BLOOD UREA NITROGEN 8 MG/DL (7-18); CALCIUM LEVEL 7.8 MG/DL (8.5-10.1); CARBON DIOXIDE LEVEL 22 MEQ/L (21-32); CHLORIDE LEVEL 112 MEQ/L (98-107); CREATININE FOR GFR 0.82 MG/DL (0.55-1.30); GLOMERULAR FILTRATION RATE > 60.0 (>51); GLUCOSE, FASTING 157 MG/DL (70-100); MAGNESIUM LEVEL 2.3 MG/DL (1.8-2.4); POTASSIUM SERUM 3.7 MEQ/L (3.5-5.1); SODIUM LEVEL 142 MEQ/L (136-145)
[2019-06-20] MEDS ORDERED: PROMETHAZINE 25 MG TAB PO PRN (13:00)
[2019-06-20] MEDS: lisinopriL 10 MG TAB PO SCH (13:12)
[2019-06-20] MEDS ORDERED: PROCHLORPERAZINE 10MG/2ML VIAL (J0780 PER 1) IM PRN (14:00)
[2019-06-20] MEDS: PROMETHAZINE 25 MG TAB PO SCH ×2 (14:20→20:14)
[2019-06-20 16:48] LABS: BLOOD UREA NITROGEN 7 MG/DL (7-18); CALCIUM LEVEL 7.5 MG/DL (8.5-10.1); CARBON DIOXIDE LEVEL 20 MEQ/L (21-32); CHLORIDE LEVEL 111 MEQ/L (98-107); CREATININE FOR GFR 0.81 MG/DL (0.55-1.30); GLOMERULAR FILTRATION RATE > 60.0 (>51); GLUCOSE, FASTING 146 MG/DL (70-100); POTASSIUM SERUM 3.1 MEQ/L (3.5-5.1); SODIUM LEVEL 139 MEQ/L (136-145)
[2019-06-20 20:59] LABS: BLOOD UREA NITROGEN 5 MG/DL (7-18); CALCIUM LEVEL 8.1 MG/DL (8.5-10.1); CARBON DIOXIDE LEVEL 24 MEQ/L (21-32); CHLORIDE LEVEL 112 MEQ/L (98-107); CREATININE FOR GFR 0.77 MG/DL (0.55-1.30); GLOMERULAR FILTRATION RATE > 60.0 (>51); GLUCOSE, FASTING 43 MG/DL (70-100); POTASSIUM SERUM 3.3 MEQ/L (3.5-5.1); SODIUM LEVEL 143 MEQ/L (136-145)
[2019-06-20] MEDS: GLUCOSE 4GM CHEW TABLET PO PRN (21:44)
[2019-06-21] VITALS: BP 141/89
[2019-06-21] MEDS: MAALOX 30 ML SUSP *UDC PO PRN (00:30)
[2019-06-21] MEDS: PROMETHAZINE 25 MG TAB PO SCH ×4 (02:15→20:11)
[2019-06-21] MEDS: DEXTROSE 50% 50 ML SYRINGE IV PRN ×2 (02:25→23:52)
[2019-06-21 04:00] VITALS: BP 129/75
[2019-06-21] MEDS: ONDANSETRON 4MG/2ML VIAL IV PRN ×3 (04:26→20:18)
[2019-06-21] MEDS ORDERED: POTASSIUM CHLORIDE 10 MEQ SR TABLET PO ONE (06:00)
[2019-06-21 06:07] LABS: HEMATOCRIT 33.6 % (36.0-47.0); HEMOGLOBIN 11.4 g/dl (12.0-15.5); MEAN CORPUSCULAR HEMOGLOBIN 31.1 pg (27.0-33.0); MEAN CORPUSCULAR HGB CONC 33.9 g/dl (32.0-36.5); MEAN CORPUSCULAR VOLUME 91.6 fl (80.0-96.0); PLATELET COUNT, AUTOMATED 233 10^3/uL (150-450); RED BLOOD COUNT 3.67 10^6/uL (4.00-5.40); WHITE BLOOD COUNT 7.1 10^3/uL (4.0-10.0)
[2019-06-21] MEDS: HEPARIN SOD (PORCINE) 5000UNITS/ML VIAL (J1644 PER 1000UNITS) SC SCH ×4 (06:11→23:12)
[2019-06-21 06:23] LABS: BLOOD UREA NITROGEN 5 MG/DL (7-18); CALCIUM LEVEL 7.8 MG/DL (8.5-10.1); CARBON DIOXIDE LEVEL 25 MEQ/L (21-32); CHLORIDE LEVEL 113 MEQ/L (98-107); CREATININE FOR GFR 0.73 MG/DL (0.55-1.30); GLOMERULAR FILTRATION RATE > 60.0 (>51); GLUCOSE, FASTING 74 MG/DL (70-100); MAGNESIUM LEVEL 1.9 MG/DL (1.8-2.4); SODIUM LEVEL 145 MEQ/L (136-145)
[2019-06-21] MEDS: HumaLOG INSULIN (NovoLOG) PER UNIT SC SCH ×4 (07:30→20:02)
[2019-06-21] MEDS: D5W/0.45% SODIUM CHLORIDE 1,000 ML IV SCH ×2 (07:49→18:34)
[2019-06-21 08:00] VITALS: BP_SYST 122; BP_SYST 142; BP_DIAS 72; BP_DIAS 90
--- NOTE | 2019-06-21 08:17 | IPNPDOC ---
Date Seen The patient was seen on 06/21/19. Progress Note SUBJECTIVE: Patient's anion gap closed, however, she still has nausea and vomiting. Reports substernal /Epigastric pain. D/w GI, XR esophagram, clear liquids, will eval. hypoglycemic o/n OBJECTIVE PHYSICAL EXAMINATION: PHYSICAL EXAMINATION: VITAL SIGNS: Please see below. GENERAL: Elderly female, appears fatigued but in no distress, HEENT: Normocephalic, atraumatic, moist mucous membranes NECK: Supple CARDIOVASCULAR EXAMINATION: S1, S2 RESPIRATORY EXAMINATION: CTAB ABDOMINAL EXAMINATION: Soft, nontender, nondistended, positive bowel sounds EXTREMITIES: no edema SKIN: No rash NEUROLOGICAL EXAMINATION: Awake PSYCHIATRIC EXAMINATION: no SI/HI, +depression, (changes in sleep, concentration, appetite, interest) Pt is a 53yF with PMH of IDDM, Asthma, GERD, HTN, Anemia (chronic), Chronic RUQ abd pain, Chronic loose stool/diarrhea, IBS, Environmental allergies, Chronic low back pain, PSH of gastric bypass/jackei fundoplication p/w with DKA weekly s econdary to noncompliance versus infection. Inpt. #n/v, Hx GERD/likely gastroparesis DM: -secondary to suspected relation to depression and hx of jackie fundoplication contributing to n/v -GI consult 06/21/19, XR esophagram, clear liquids -cont anti-emetic regimen #DKA/IDDM: A1c is 9.4, resolved -secondary to suspected relation to depression and hx of jackie fundoplication contributing to n/v -u/a neg, blood cultures 2 neg -VBG stable -plan to resume home DM meds: Pt takes trulicity 1.5 mg every weekly, insulin aspartate 5 units before meals, and degludec 30 units daily -d/t hypoglycemia o/n 06/20/19, will start D5 1/2 NS, glu checks q6h, reduce insulin dose #depression, since starting reglan, contraindicated with SSRI, once n/v controlled, will consider transitioning to Phenergan can consider starting fluoxetine 20mg QD d/t drug interaction category D with reglan and SSRI #Leukocytosis secondary to stress reaction versus infection, has intermittent fever, chest x-ray is not suggestive of pneumonia, UA, not suggestive of UTI, f/u blood cultures obtained on 06/19/2019, hold off on additional antibiotics at this time, CT abd and pelvis 06/18/19 not suggestive of infection -resolved without Abx #pseudohyponatremia secondary to DKA -resolved #Hyperkalemia, resolved, likely secondary to DKA/insulin, will monitor -without peaked T waves, troponin 2 negative, resolved, will continue with fluids and monitor with EKG and potassium levels, since patient is already on insulin drip, will also administer Kayexalate and calcium gluconate, will consider Lasix if fluid overloaded, if worsening along with CRISTINE, well consider nephrology consult for dialysis, magnesium levels within normal limits, will recheck in the a.m. #CRISTINE, likely secondary to above, and hypovolemic status with nausea, vomiting, resolved, continue IVF, see above -resolved #Hyperphosphatemia secondary to above, resolved, continue IVF #Asthma: Continue home inhaler #HFpEF/HTN/HLD: Continue home meds #Mood disorders: Continue home meds #anemia: cont home Fe #back pain: cont home meds #GERD: cont home meds DVT ppx: heparin Full code Dispo: Patient will be inpatient for at least 2 midnights anticipated dc home earliest 06/22/19, PT eval 32 minutes spent on pt care VS, I&O, 24H, [facility] Vital Signs/I&O Vital Signs Date Time Temp Pulse Resp B/P (MAP) Pulse Ox O2 Delivery O2 Flow Rate FiO2 06/21/19 04:00 99.4 82 16 129/75 (93) 96 Room Air I&O- Last 24 Hours up to 6 AM 06/21/19 06:00 Intake Total 3679.0 ml Output Total 1600 ml Balance 2079.0 ml Laboratory Data 24H LABS Laboratory Tests 2 06/20/19 08:48: Anion Gap 9, Glomerular Filtration Rate > 60.0, Calcium Level 8.3L 06/20/19 09:08: Bedside Glucose (Misc Panel) 182H 06/20/19 09:58: Bedside Glucose (Misc Panel) 156H 06/20/19 11:04: Bedside Glucose (Misc Panel) 105 06/20/19 11:58: Bedside Glucose (Misc Panel) 145H 06/20/19 12:11: Anion Gap 8, Glomerular Filtration Rate > 60.0, Calcium Level 7.8L, Magnesium Level 2.3 06/20/19 13:11: Bedside Glucose (Misc Panel) 226H 06/20/19 14:08: Bedside Glucose (Misc Panel) 180H 06/20/19 14:56: Bedside Glucose (Misc Panel) 122H 06/20/19 16:09: Bedside Glucose (Misc Panel) 144H 06/20/19 16:18: Anion Gap 8, Glomerular Filtration Rate > 60.0, Calcium Level 7.5L 06/20/19 17:02: Bedside Glucose (Misc Panel) 148H 06/20/19 20:08: Bedside Glucose (Misc Panel) 46L 06/20/19 20:23: Anion Gap 7L, Glomerular Filtration Rate > 60.0, Calcium Level 8.1L 06/20/19 21:41: Bedside Glucose (Misc Panel) 46L 06/21/19 00:18: Bedside Glucose (Misc Panel) 54L 06/21/19 02:17: Bedside Glucose (Misc Panel) 33*L 06/21/19 02:59: Bedside Glucose (Misc Panel) 119H 06/21/19 05:18: Nucleated Red Blood Cells % (auto) 0.0, Anion Gap 7L, Glomerular Filtration Rate > 60.0, Calcium Level 7.8L, Magnesium Level 1.9 CBC/BMP Laboratory Tests 06/20/19 08:48 06/20/19 12:11 06/20/19 16:18 06/20/19 20:23 06/21/19 05:18 Microbiology Microbiology 06/19/19 Blood Culture - Preliminary, Resulted No growth after 24 hours . All specim... 06/19/19 Blood Culture - Preliminary, Resulted No growth after 24 hours . All specim... JULIOCESAR HONG MD June 21, 2019 08:17
[2019-06-21] MEDS: PANTOPRAZOLE 40MG VIAL (C9113 PER 1) IV SCH ×2 (08:57→20:11)
[2019-06-21] MEDS ORDERED: LEVEMIR (INSULIN DETEMIR) 1 UNITS/0.01ML SC SCH ×2 (09:00→16:00)
[2019-06-21] MEDS ORDERED: E-Z-HD 98% w/w 340GM SUSP BTL As Ordered ONE (10:30)
[2019-06-21] MEDS ORDERED: E-Z-GAS II EFFERVESCENT PACKET (SODIUM BICARB./CITRIC ACID/SIMETHICONE) As Ordered ONE (10:30)
[2019-06-21] MEDS ORDERED: E-Z-PAQUE 96% w/w SUSP 176GM BTL As Ordered ONE (10:30)
--- NOTE | 2019-06-21 11:53 | CR.PDOC ---
General Date of Consultation: June 21, 2019 Referring Provider: JULIOCESAR HONG MD Primary Care Physician: HANNAH BURGOS Attending Physician: ANETA ALLEN MD Consultation Primary physician/ hospitalist: DR. Hong Reason for consult: Nausea, Vomiting HPI: -- Ms. Sierra is a 53 year old female with Type 1 Diabetes mellitus/OSIEL, gastroparesis, Celiac disease, GERD s/p Gretchen fundoplication, hyperlipidemia, and history of TIA who had contacted her PCP on Jun 17 2019 with complaint of nausea. She had labs completed through her PCP demonstrating an elevated ALT, normal anion gap and negative acetone/ketone. On June 17 she presented to the [facility] ER with continued nausea. At the time she was not hyperglycemic. She did have an elevated B-hydroxybutyrate of 20.78 but was discharged. Overnight she stated that she developed abdominal pain, nausea, and vomiting. She presented to the ER on 06/19/2019 and was diagnosed with DKA. She was placed on insulin drip. Once DKA resolved she continued to have nausea and vomiting and Gastroenterology was consulted for further evaluation and management Patient states that about 3 months ago she started to develop dysphagia. She first noticed this when swallowing pills. She states that she feels like her pills get "stuck in her throat". Additionally, she states that when she eats or drinks she feels like food gets stuck. She admits to a history of gastroparesis however states that she has never gotten nausea and vomiting like this before. She does admit to decreased oral intake and says that she has not been eating as much because she gets nausea, vomiting, and abdominal pain. She denies any feelings of choking. Currently she admits to midepigastric pain. She denies any feeling of bloating. She denies any hematemesis, melena, or hematochezia. She denies any current diarrhea or constipation. Pertinent negative GI symptoms: Patient denies fever, sick contacts, recent travel. No history of hematemesis, melena or hematochezia. Patient reports regular bowel movements. Review of Systems: GI: as stated above CVS: No chest pain, No palpitations, No leg swelling. RS: No Shortness of breath, No Wheezing, no cough COIL WRAPPER: No dizziness, No motor weakness, No sensory problems Hematology: No bruising, No gum bleeding, Musculoskeletal: Admits to join pain in hands from osteoarthritis. Denies muscle pain Skin: Denies rash : No hematuria, No burning sensation of the urine ENT: No ear discharge/ pain, No dysphagia. Eyes: No photophobia. Jaundice Home medications: reviewed. Antithrombotic agents - Heparin 5000 units SQ Medical h/o: 1. Diabetes Mellitus Type 1 (Dx 1996) 2. JERAD 3. HTN 4. GERD s/p Gretchen Fundoplication 5. Celiac Disease 6. Hyperlipidemia 7. Asthma 8. Hx of TIA 9. Hiatal Hernia 10. History of Upper GI bleed 2/2 Gastritis in 2014 Surgical h/o: 1. Gretchen Fundoplication 2. Gastric Sleeve 11/25/2013 3. EGD 2011 w/Esophagitis 4. Colonoscopy 2014 5. ERCP w/ Papillotomy and Balloon Sweep (06/10/2018) 6. Cholecystectomy 7. Appendectomy 8. Section 9. Hysterectomy Social h/o: Denies alcohol use. Patient is a former smoker. She denies any IV or illicit drug use. She denies marijuana use Family h/o of GI cancers - Father from gastric cancer Prior Endoscopies: --- Upper Endoscopy 01/16/2015 at [facility] (DR. POWERS). Normal esophagus, antral erythema compatible with gastritis. Food present in stomach likely gastroparesis --- Colonoscopy 10/27/2015 at [facility] by Dr. Subramanian demonstrating unsatisfactory prep. Non-bleeding internal hemorrhoids --- ERCP + Papillotomy + Balloon Sweep at [facility] on 06/10/[address] Subramanian demonstrating dilated biliary tree otherwise normal Prior GI evaluations: 1. Dr. Subramanian on 02/27/2018 for diarrhea and elevated LFTs 2. [facility] 01/16/2015 (Dr. Michael Powers) for coffee ground emesis Exam: Vitals: reviewed General: Alert and oriented x 3, not in distress. Lying comfortably in bed HEENT: NO pallor, no icterus. Normal oropharynx, NO cervical lymph nodes. Chest: Clear vesicular breath sounds bilaterally. No wheezes, rhonchi, or rales. Symmetric chest expansion. No accessory muscle use CVS: Normal S1, S2. Regular rate and rhythm. No clicks, rubs, or murmurs Abdomen: Soft, nondistended. Mild midepigastric tenderness. No rebound tenderness or guarding. No palpable masses or hernias. Surgical scars present. normoactive bowel sounds throughout Rectal exam: Deferred at this time Extremities: No edema. Full and equal pulses in bilateral upper and lower extremities COIL WRAPPER: no focal motor or sensory deficits. Moves all extremities Skin: no rash. Labs: reviewed. HCV screening completed in 2018. Negative Imaging: reviewed. Chest X-ray reviewed. No acute cardiopulmonary process Esophagram Pending Impression: - Patient is a 53 year old female with a past medical history significant for diabetes mellitus type 1 with gastroparesis, celiacs disease, GERD s/p Gretchen Fundoplication, hx of gastric sleeve who presented to [facility] with complaint of nausea and vomiting and found to be in DKA. DKA was corrected during patients hospitalization however nausea and vomiting persisted and Gastroenterology was consulted for further evaluation and management.. -- DDX includes gastrop aresis, vs stricture/stenosis / gastric outlet obstruction vs PUD vs biliary etiology. ( in view of prior biliary dilation). Recommendations: - Recommend holding Prokinetic medications for now given concern for possible gastric outlet obstruction. Continue central acting antiemetic medications as needed. - Recommend clear liquid diet for now as tolerated. - Management of DKA and leectrolyte abnormalities as per primary team. - Continue Protonix for now - prefer 40 mg IV twice daily. - Avoid NSAIDS - Barium Esophagram results reviewed with patient. - Obtain Ultrasound abdomen to evaluate the liver and biliary tree. - Will schedule for EGD tomorrow. Patient is educated about the procedures, indications risks and benefits and she verbalized understanding and consented for the procedure. - Patient educated about the test results, possible differential diagnoses and All questions answered. -GI will follow Plan of care discussed with patient and primary team. Patient verbalized understanding and agreed with the plan. Attending attestation: The above note done by Resident physician is personally supervised by me, reviewed with patient and repeat physical exam performed by me. The assessment and plan reviewed and changes made and communicated the recommendations to patient and Primary team. Vital Signs/I&O Vital Signs Date Time Temp Pulse Resp B/P (MAP) Pulse Ox O2 Delivery O2 Flow Rate FiO2 06/21/19 08:00 99.3 80 17 142/90 (107) 96 Room Air I&O- Last 24 Hours up to 6 AM 06/21/19 06:00 Intake Total 3679.0 ml Output Total 1600 ml Balance 2079.0 ml Laboratory Data Labs 24H Laboratory Tests 2 06/20/19 11:04: Bedside Glucose (Misc Panel) 105 06/20/19 11:58: Bedside Glucose (Misc Panel) 145H 06/20/19 12:11: Anion Gap 8, Glomerular Filtration Rate > 60.0, Calcium Level 7.8L, Magnesium Level 2.3 06/20/19 13:11: Bedside Glucose (Misc Panel) 226H 06/20/19 14:08: Bedside Glucose (Misc Panel) 180H 06/20/19 14:56: Bedside Glucose (Misc Panel) 122H 06/20/19 16:09: Bedside Glucose (Misc Panel) 144H 06/20/19 16:18: Anion Gap 8, Glomerular Filtration Rate > 60.0, Calcium Level 7.5L 06/20/19 17:02: Bedside Glucose (Misc Panel) 148H 06/20/19 20:08: Bedside Glucose (Misc Panel) 46L 06/20/19 20:23: Anion Gap 7L, Glomerular Filtration Rate > 60.0, Calcium Level 8.1L 06/20/19 21:41: Bedside Glucose (Misc Panel) 46L 06/21/19 00:18: Bedside Glucose (Misc Panel) 54L 06/21/19 02:17: Bedside Glucose (Misc Panel) 33*L 06/21/19 02:59: Bedside Glucose (Misc Panel) 119H 06/21/19 05:18: Nucleated Red Blood Cells % (auto) 0.0, Anion Gap 7L, Glomerular Filtration Rate > 60.0, Calcium Level 7.8L, Magnesium Level 1.9 CBC/BMP Laboratory Tests 06/20/19 12:11 06/20/19 16:18 06/20/19 20:23 06/21/19 05:18 Microbiology Microbiology 06/19/19 Blood Culture - Preliminary, Resulted No growth after 24 hours . All specim... 06/19/19 Blood Culture - Preliminary, Resulted No growth after 24 hours . All specim... Allergies Coded Allergies: TAPE (Verified Allergy, Mild, PLASTIC TAPE- RASH, 09/26/17) BANDAIDS -RASH prednisone (Verified Adverse Reaction, Intermediate, EXTREME ELEVATED BLOOD SUGAR, 06/08/18) Gluten Flour (Verified Adverse Reaction, Mild, diarrhea, 09/26/17) gluten (Verified Adverse Reaction, Mild, DIARRHEA, 06/08/18) Home Medications Scheduled Aspirin (Aspirin EC) 81 Mg Tabec, 81 MG PO DAILY, (Reported) Atorvastatin Calcium (Atorvastatin Calcium) 20 Mg Tablet, 20 MG PO DAILY, (Reported) Cholecalciferol (Vitamin D3) (Vitamin D3) 1,000 Unit Tablet, 1,000 UNITS PO DAILY, (Reported) Clonazepam (Clonazepam) 1 Mg Tablet, 1 MG PO TID, (Reported) Dulaglutide (Trulicity) 1.5 Mg/0.5 Ml Inj, 1.5 MG SC QWEEK, (Reported) TAKES ON WEDNESDAYS Ferrous Sulfate (Ferrous Sulfate) 325 Mg Tab, 325 MG PO DAILY, (Reported) Insulin Aspart (Niacinamide) (Fiasp 100 Unit/ml Flextouch) 100 Unit/1 Ml Insuln.pen, 5 UNITS SC AC, (Reported) Insulin Degludec (Tresiba Flextouch U-100) 100 Unit/1 Ml Insuln.pen, 30 UNIT SC DAILY, (Reported) Methocarbamol (Methocarbamol) 500 Mg Tablet, 500 MG PO BID, (Reported) Multivitamins (Thera M Plus Tablet) 1 Tab Tab, 1 TAB PO DAILY, (Reported) Pantoprazole Sodium (Pantoprazole Sodium) 40 Mg Tablet.dr, 40 MG PO DAILY, (Reported) Pregabalin (Pregabalin) 75 Mg Capsule, 75 MG PO BID, (Reported) Sucralfate (Sucralfate) 1 Gm Tablet, 1 GM PO BID, (Reported) Tizanidine HCl (Tizanidine HCl) 4 Mg Tablet, 4 MG PO TID, (Reported) Varenicline (Chantix) 1 Mg Tablet, 1 MG PO BID, (Reported) Scheduled PRN Albuterol Sulfate (Ventolin Hfa) 108 Mcg/Act Aer, 2 PUFFS INH Q4H PRN for S HORTNESS OF BREATH, (Reported) Ammonium Lactate (Ammonium Lactate) 12 % Cre, 1 DOSE TOP DAILY PRN for PAIN, (Reported) APPLY TO FEET Docusate Sodium (Colace) 100 Mg Cap, 100 MG PO BID PRN for CONSTIPATION, (Reported) Glucagon,Human Recombinant (Glucagon Emergency Kit) 1 Mg Kit, 1 MG IM ASDIRECTED PRN for LOW BLOOD SUGAR, (Reported) Lidocaine (Lidocaine) 120 Gm Oint...g., 1 DOSE TOP DAILY PRN for BACK PAIN, (Reported) Ondansetron (Ondansetron Odt) 4 Mg Tab.rapdis, 4 MG PO TID PRN for NAUSEA, (Reported) Oxycodone HCl/Acetaminophen (Oxycodone-Acetaminophen 5-325) 1 Each Tablet, 1 TAB PO BID PRN for PAIN, (Reported) Polyethylene Glycol 3350 (Miralax) 119 Gm Powder, 17 GM PO DAILY PRN for CONSTIPATION, (Reported) Propylene Glycol/Peg 400 (Systane 0.3-0.4% Eye Drops) 15 Ml Sade, 1 DROP OU QID PRN for DRY EYES, (Reported) Sodium Chloride ([place]) 0.65 % Spr, 2 SPRAY NA QID PRN for NASAL DRYNESS, (Reported) Trazodone HCl (Trazodone HCl) 50 Mg Tablet, 50 MG PO QHS PRN for SLEEP, (Reported) Miscellaneous Medications [Patient Comment] , (Reported) UNABLE TO VERIFY MEDICATIONS WITH PATIENT - MED LIST OBTAINED FROM PHARMACY. LADI GUNTER DO June 21, 2019 10:36 ANETA ALLEN MD June 21, 2019 17:12
[2019-06-21 12:00] VITALS: BP 135/82
[2019-06-21] MEDS: FLUoxetine 20 MG CAP PO SCH (12:33)
[2019-06-21] MEDS: lisinopriL 10 MG TAB PO SCH (12:34)
--- NOTE | 2019-06-21 13:54 | REP ---
Esophagram The procedure was performed under the direct supervision of Dr. Manuel. The images were reviewed with Dr. Manuel. A single view PA chest x-ray is submitted as a cable television program director film. The superior mediastinal structures are midline. The heart size is within normal limits. The lungs are clear. Liquid barium and gas producing granules were given in the erect position as well as liquid barium in the prone oblique positions in order to perform a double contrast esophagram examination. The oral and pharyngeal stages of deglutition are unremarkable. Esophageal transport is prompt and efficient and there is no esophagitis, stricture or mucosal ring. The patient is status post gastric sleeve. There is a sliding type hiatal hernia. There is gastroesophageal reflux demonstrated to above the level of the ana lilia. Impression: There is a sliding type hiatal hernia. There is gastroesophageal reflux demonstrated to above the level of the ana lilia. 1 minute of fluoro time was utilized for this procedure. Electronically Signed by SARAH Clemens 06/21/2019 01:41 P Electronically Signed by Ahsan Manuel MD 06/21/2019 01:45 P
[2019-06-21 16:00] VITALS: BP 120/78
[2019-06-21] MEDS ORDERED: FAMOTIDINE INJ 20MG/2ML VIAL (S0028 PER 1) IVP ONE (16:30)
[2019-06-21 20:00] VITALS: BP 154/80
[2019-06-21] MEDS: ACETAMINOPHEN TAB 650MG DOSE (2X325MG) PO PRN (20:11)
[2019-06-22] VITALS: BP 142/70
[2019-06-22] MEDS: ONDANSETRON 4MG/2ML VIAL IV PRN ×2 (00:38→23:43)
[2019-06-22] MEDS: PROMETHAZINE 25 MG TAB PO SCH ×4 (01:05→20:24)
[2019-06-22] MEDS: DEXTROSE 50% 50 ML SYRINGE IV PRN (01:21)
[2019-06-22] MEDS: MAALOX 30 ML SUSP *UDC PO PRN ×2 (02:05→19:49)
[2019-06-22] MEDS: PROCHLORPERAZINE 10MG/2ML VIAL (J0780 PER 1) IV PRN (02:27)
[2019-06-22 04:00] VITALS: BP 162/80
[2019-06-22] MEDS ORDERED: ACETAMINOPHEN *IV* 1,000 MG in IV 1 EA IV ONE (04:45)
[2019-06-22] MEDS: D5W/0.45% SODIUM CHLORIDE 1,000 ML IV SCH (05:39)
[2019-06-22 05:53] LABS: HEMATOCRIT 31.3 % (36.0-47.0); HEMOGLOBIN 10.6 g/dl (12.0-15.5); MEAN CORPUSCULAR HEMOGLOBIN 31.4 pg (27.0-33.0); MEAN CORPUSCULAR HGB CONC 33.9 g/dl (32.0-36.5); MEAN CORPUSCULAR VOLUME 92.6 fl (80.0-96.0); PLATELET COUNT, AUTOMATED 217 10^3/uL (150-450); RED BLOOD COUNT 3.38 10^6/uL (4.00-5.40); WHITE BLOOD COUNT 5.5 10^3/uL (4.0-10.0)
[2019-06-22 06:17] LABS: BLOOD UREA NITROGEN 6 MG/DL (7-18); CALCIUM LEVEL 7.7 MG/DL (8.5-10.1); CARBON DIOXIDE LEVEL 26 MEQ/L (21-32); CHLORIDE LEVEL 106 MEQ/L (98-107); CREATININE FOR GFR 0.74 MG/DL (0.55-1.30); GLOMERULAR FILTRATION RATE > 60.0 (>51); GLUCOSE, FASTING 263 MG/DL (70-100); POTASSIUM SERUM 4.3 MEQ/L (3.5-5.1); SODIUM LEVEL 138 MEQ/L (136-145)
[2019-06-22] MEDS: HumaLOG INSULIN (NovoLOG) PER UNIT SC SCH ×3 (07:30→20:00)
[2019-06-22 08:00] VITALS: BP 140/75
[2019-06-22] MEDS: PANTOPRAZOLE 40MG VIAL (C9113 PER 1) IV SCH ×2 (08:51→20:24)
[2019-06-22] MEDS: lisinopriL 10 MG TAB PO SCH (09:00)
[2019-06-22] MEDS: FLUoxetine 20 MG CAP PO SCH (09:00)
--- NOTE | 2019-06-22 10:03 | REP ---
ABDOMINAL ULTRASOUND: Real-time sonographic evaluation of the abdomen is performed. The patient has had a prior cholecystectomy. There is expected mild prominence of the common bile duct at 8 mm in diameter. Calcified granuloma is seen in the right lobe of the liver with no evidence of a mass. The pancreas demonstrates no mass. The spleen is normal in size with no intrinsic abnormality measuring 9.3 cm in length. Kidneys are normal size and echo texture, right kidney measuring 11.3 x 4.1 x 3.9 cm and left kidney 10.7 x 4.4 x 4.9 cm. There is no renal mass, hydronephrosis or nephrolithiasis. Abdominal aorta is normal in caliber with no aneurysm, proximally measuring 2.4 cm in AP dimension and distally 1.6 cm. There is no ascites. IMPRESSION: Status post cholecystectomy. Essentially negative abdominal ultrasound. Electronically Signed by Ahsan Manuel MD 06/22/2019 10:31 A
--- NOTE | 2019-06-22 10:14 | IPNPDOC ---
Date Seen The patient was seen on 06/22/19. Progress Note SUBJECTIVE: N/V improved, still reports substernal, RUQ/epigastric tenderness. Pt is status post cholecystectomy, history of Jackie fundoplication. Plan for EGD today. 06/22/2019, will follow up with GI. Patient's insulin long-acting was reduced yesterday due to hypoglycemia, D5 IVF was continued. Overnight, she also had hypoglycemic episode, will reduce long-acting insulin again to 10 units d aily at bedtime, continue D5 half-normal IVF. OBJECTIVE PHYSICAL EXAMINATION: PHYSICAL EXAMINATION: VITAL SIGNS: Please see below. GENERAL: Elderly female, appears fatigued but in no distress, HEENT: Normocephalic, atraumatic, moist mucous membranes NECK: Supple CARDIOVASCULAR EXAMINATION: S1, S2 RESPIRATORY EXAMINATION: CTAB ABDOMINAL EXAMINATION: Soft, tenderness to palpation in the epigastric and RUQ, non-distended, positive bowel sounds EXTREMITIES: no edema SKIN: No rash NEUROLOGICAL EXAMINATION: Awake PSYCHIATRIC EXAMINATION: no SI/HI, +depression, (changes in sleep, concentration, appetite, interest) Pt is a 53yF with PMH of IDDM, Asthma, GERD, HTN, Anemia (chronic), Chronic RUQ abd pain, Chronic loose stool/diarrhea, IBS, Environmental allergies, Chronic low back pain, PSH of gastric bypass/jackie fundoplication p/w with DKA weekly secondary to noncompliance versus worsening GERD. Inpt. #n/v, Hx GERD/likely gastroparesis DM: -f/u EGD 06/22/19, f/u GI -secondary to suspected relation to depression and hx of jackie fundoplication contributing to n/v -XR esophagram +GERD and hiatal hernia, clear liquids, NPO at midnight -increase PPI to BID, administered 1 dose of H2 antagonist -cont anti-emetic regimen #DKA/IDDM: A1c is 9.4, resolved -secondary to suspected relation to depression and hx of jackie fundoplication contributing to n/v -u/a neg, blood cultures 2 neg -VBG stable -plan to resume home DM meds: Pt takes trulicity 1.5 mg every weekly, insulin aspartate 5 units before meals, and degludec 30 units daily -d/t hypoglycemia o/n 06/20/19, will start D5 1/2 NS, glu checks q6h, reduce insulin dose -PT cleared patient #depression, trial of starting reglan, contraindicated with SSRI, once n/v controlled, will consider transitioning to Phenergan can consider starting fluoxetine 20mg QD d/t drug interaction category D with reglan and SSRI #Leukocytosis secondary to stress reaction versus infection, has intermittent fever, chest x-ray is not suggestive of pneumonia, UA, not suggestive of UTI, f/u blood cultures obtained on 06/19/2019, hold off on additional antibiotics at this time, CT abd and pelvis 06/18/19 not suggestive of infection -resolved without Abx #pseudohyponatremia secondary to DKA -resolved #Hyperkalemia, resolved, likely secondary to DKA/insulin, will monitor -without peaked T waves, troponin 2 negative, resolved, will continue with fluids and monitor with EKG and potassium levels, since patient is already on insulin drip, will also administer Kayexalate and calcium gluconate, will consider Lasix if fluid overloaded, if worsening along with CRISTINE, well consider nephrology consult for dialysis, magnesium levels within normal limits, will recheck in the a.m. #CRISTINE, likely secondary to above, and hypovolemic status with nausea, vomiting, resolved, continue IVF, see above -resolved #Hyperphosphatemia secondary to above, resolved, continue IVF #Asthma: Continue home inhaler #HFpEF/HTN/HLD: Continue home meds #Mood disorders: Continue home meds #anemia: cont home Fe #back pain: cont home meds #GERD: cont home meds DVT ppx: heparin Full code Dispo: Patient will be inpatient for at least 2 midnights -anticipated dc home earliest 06/23/19, PT eval 32 minutes spent on patient care VS, I&O, [facility] Sign[facility]/I&O Vital Signs Date Time Temp Pulse Resp B/P (MAP) Pulse Ox O2 Delivery O2 Flow Rate FiO2 06/22/19 08:00 98.2 78 20 140/75 (96) 96 Room Air I&O- Last 24 Hours up to 6 AM 06/22/19 06:00 Intake Total 2480 ml Output Total 2275 ml Balance 205 ml Laboratory Data 24H LABS Laboratory Tests 2 06/21/19 12:19: Bedside Glucose (Misc Panel) 445H 06/21/19 15:37: Bedside Glucose (Misc Panel) 218H 06/21/19 18:03: Bedside Glucose (Misc Panel) 259H 06/21/19 19:55: Bedside Glucose (Misc Panel) 102 06/21/19 20:22: Coronavirus (COVID-19)(PCR) NEGATIVE 06/21/19 23:48: Bedside Glucose (Misc Panel) 41L 06/22/19 00:22: Bedside Glucose (Misc Panel) 96 06/22/19 01:13: Bedside Glucose (Misc Panel) 76 06/22/19 03:15: Bedside Glucose (Misc Panel) 151H 06/22/19 05:14: Nucleated Red Blood Cells % (auto) 0.0, Anion Gap 6L, Glomerular Filtration Rate > 60.0, Calcium Level 7.7L 06/22/19 08:45: Urine Color YELLOW, Urine Appearance CLEAR, Urine pH 6.0, Urine Specific [place] 1.026, Urine Protein NEGATIVE, Urine Glucose (UA) 3+H, Urine Ketones 1+H, Urine Blood NEGATIVE, Urine Nitrite NEGATIVE, Urine Bilirubin NEGATIVE, Urine Urobilinogen 0.2, Urine Leukocyte Esterase TRACEH, Urine WBC (Auto) 1, Urine RBC (Auto) 1, Urine Hyaline Casts (Auto) 0, Urine Bacteria (Auto) NEGATIVE, Urine Squamous Epithelial Cells 0, Urine Mucus (Auto) SMALL, Urine Sperm (Auto) CBC/BMP Laboratory Tests 06/22/19 05:14 Microbiology Microbiology 06/22/19 Urine Culture, Received Pending 06/22/19 Gram Stain - Final, Complete 06/22/19 Sputum Culture - Final, Complete 06/22/19 Blood Culture, Received Pending 06/22/19 Blood Culture, Received Pending 06/19/19 Blood Culture - Preliminary, Resulted No Growth after 48 hours. All Specime... 06/19/19 Blood Culture - Preliminary, Resulted No Growth after 48 hours. All Specime... JULIOCESAR HONG MD June 22, 2019 10:08
[2019-06-22] MEDS ORDERED: HumaLOG INSULIN (NovoLOG) PER UNIT SC ONE ×2 (11:45→15:45)
[2019-06-22] MEDS ORDERED: HumaLOG INSULIN (NovoLOG) PER UNIT SC SCH ×4 (12:00→21:00)
[2019-06-22 13:26] VITALS: BP 136/75
[2019-06-22] MEDS ORDERED: propofoL 200 MG/20 ML VIAL As Ordered ONE (13:27)
[2019-06-22] MEDS ORDERED: LIDOCAINE 2% 100MG/5ML SDV (FOR ANES.) As Ordered ONE (13:27)
[2019-06-22] MEDS: HEPARIN SOD (PORCINE) 5000UNITS/ML VIAL (J1644 PER 1000UNITS) SC SCH ×2 (13:28→22:06)
--- NOTE | 2019-06-22 15:17 | ROOR ---
Patient Name: Alia Sierra Procedure Date: 06/22/2019 1:05 PM Date of : 1965 Age: 53 Room: Main OR Gender: Female Note Status: Finalized Procedure: Upper GI endoscopy Indications: Epigastric abdominal pain, Nausea with vomiting, Persistent vomiting Providers: Cesario Gardner MD Referring MD: Nedra Bianchi Md, 2. Inpatient 2. Inpatient Requesting Provider: Medicines: Monitored Anesthesia Care Complications: No immediate complications. Procedure: Pre-Anesthesia Assessment: - Prior to the procedure, a History and Physical was performed, and patient medications and allergies were reviewed. The patient is competent. The risks and benefits of the procedure and the sedation options and risks were discussed with the patient. All questions were answered and informed consent was obtained. Patient identification and proposed procedure were verified by the physician, the nurse and the anesthesiologist in the procedure room. Mental Status Examination: alert and oriented. Airway Examination: normal oropharyngeal airway and neck mobility. Respiratory Examination: clear to auscultation. CV Examination: normal. Prophylactic Antibiotics: The patient does not require prophylactic antibiotics. Prior Anticoagulants: The patient has taken no previous anticoagulant or antiplatelet agents. ASA Grade Assessment: III - A patient with severe systemic disease. After reviewing the risks and benefits, the patient was deemed in satisfactory condition to undergo the procedure. The anesthesia plan was to use monitored anesthesia care (MAC). Immediately prior to administration of medications, the patient was re-assessed for adequacy to receive sedatives. The heart rate, respiratory rate, oxygen saturations, blood pressure, adequacy of pulmonary ventilation, and response to care were monitored throughout the procedure. The physical status of the patient was re-assessed after the procedure. The Endoscope was introduced through the mouth, and advanced to the second part of duodenum. The upper GI endoscopy was accomplished without difficulty. The patient tolerated the procedure well. Findings: LA Grade D (one or more mucosal breaks involving at least 75% of esophageal circumference) esophagitis with no bleeding was found in the lower third of the esophagus. Biopsies were taken with a cold forceps for histology. Verification of patient identification for the specimen was done by the physician and nurse using the patient's name, date and medical record number. Estimated blood loss was minimal. A medium-sized hiatal hernia was found. Evidence of a sleeve gastrectomy was found in the gastric body. This was characterized by moderate stenosis. A TTS dilator was passed through the scope. Dilation with an 18-19-20 mm balloon dilator was performed to 20 mm. The dilation site was examined and showed moderate improvement in luminal narrowing. The ampulla, duodenal bulb, second portion of the duodenum and area of the papilla were normal. Impression: - LA Grade D reflux esophagitis. Rule out Ren's esophagus. Biopsied. - Medium-sized hiatal hernia. 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 Dilated. - Normal ampulla, duodenal bulb, second portion of the duodenum and area of the papilla. Recommendation: - Patient has a contact number available for emergencies. The signs and symptoms of potential delayed complications were discussed with the patient. Return to normal activities tomorrow. Written discharge instructions were provided to the patient. - [facility]. - Clear liquid diet for 1 day, then advance as tolerated to gastroparesis diet. - Use Protonix (pantoprazole) 40 mg PO twice daily - to be taken in morning (1/2 hour before breakfast) and at bedtime ( atleast 3 hours after last meal) for 3 months. - Use sucralfate suspension 1 gram PO QID for 6 weeks. - Repeat upper endoscopy in 3 months to check healing. - Telephone GI clinic for pathology results in 2 weeks. - Return to GI clinic in [facility] (address [address], [address], [place], [address]) in 4 -- 6 weeks. Please call GI clinic @ [phone] for apppointment date and time. - Return to primary care physician. Cesario Gardner MD Cesario Gardner MD 06/22/2019 3:17:03 PM Electronically signed by Cesario Gardner MD Number of Addenda: 0 Note Initiated On: 06/22/2019 1:05 PM Estimated Blood Loss: Estimated blood loss: none.
[2019-06-22] MEDS ORDERED: fentaNYL 100 MCG/2 ML INJECTION (J3010) IV PRN (15:30)
[2019-06-22] MEDS ORDERED: ONDANSETRON 4MG/2ML VIAL IV PRN (15:30)
[2019-06-22] MEDS ORDERED: LR 1,000 ML IV SCH (15:30)
[2019-06-22] MEDS ORDERED: HumaLOG INSULIN (NovoLOG) PER UNIT As Ordered ONE (15:30)
[2019-06-22] MEDS ORDERED: SLF 3 ML SYR IV PRN (15:45)
[2019-06-22 16:00] VITALS: BP 148/82
[2019-06-22] MEDS ORDERED: SUCR1TAB56 PO (16:44)
[2019-06-22] MEDS ORDERED: PANT-23 PO (16:44)
[2019-06-22] MEDS ORDERED: FLUO20CA22 PO (16:44)
[2019-06-22] MEDS: SUCRALFATE SUSP 1GM/10ML UD PO SCH ×2 (16:50→20:24)
[2019-06-22] MEDS: GLUCOSE 4GM CHEW TABLET PO PRN (19:49)
[2019-06-22] MEDS ORDERED: LEVEMIR (INSULIN DETEMIR) 1 UNITS/0.01ML SC SCH (21:00)
[2019-06-22] MEDS ORDERED: hydrOXYzine 50 MG TAB PO ONE (21:00)
[2019-06-22] MEDS: SLF 3 ML SYR IV SCH (22:07)
--- NOTE | 2019-06-22 22:52 | REP ---
CHEST, TWO VIEWS: There is no evidence of acute infiltrate. No pleural effusion is seen. The heart is normal in size. The mediastinal silhouette is unremarkable. The visualized osseous structures are intact. IMPRESSION: No acute pulmonary disease. Electronically Signed by Ahsan Manuel MD 06/23/2019 12:43 P
[2019-06-22] MEDS: ACETAMINOPHEN TAB 650MG DOSE (2X325MG) PO PRN (23:37)
[2019-06-23] VITALS: BP 129/63
[2019-06-23] MEDS: PROMETHAZINE 25 MG TAB PO SCH ×4 (01:12→20:25)
[2019-06-23 06:03] LABS: HEMATOCRIT 35.6 % (36.0-47.0); HEMOGLOBIN 11.5 g/dl (12.0-15.5); MEAN CORPUSCULAR HEMOGLOBIN 30.8 pg (27.0-33.0); MEAN CORPUSCULAR HGB CONC 32.3 g/dl (32.0-36.5); MEAN CORPUSCULAR VOLUME 95.4 fl (80.0-96.0); PLATELET COUNT, AUTOMATED 252 10^3/uL (150-450); RED BLOOD COUNT 3.73 10^6/uL (4.00-5.40); WHITE BLOOD COUNT 7.6 10^3/uL (4.0-10.0)
[2019-06-23 06:11] LABS: BLOOD UREA NITROGEN 12 MG/DL (7-18); CALCIUM LEVEL 8.3 MG/DL (8.5-10.1); CARBON DIOXIDE LEVEL 17 MEQ/L (21-32); CHLORIDE LEVEL 102 MEQ/L (98-107); GLOMERULAR FILTRATION RATE > 60.0 (>51); GLUCOSE, FASTING 478 MG/DL (70-100); POTASSIUM SERUM 4.8 MEQ/L (3.5-5.1); SODIUM LEVEL 134 MEQ/L (136-145)
[2019-06-23] MEDS ORDERED: HumaLOG INSULIN (NovoLOG) PER UNIT SC ONE (06:30)
[2019-06-23] MEDS: SUCRALFATE SUSP 1GM/10ML UD PO SCH ×4 (06:34→20:25)
[2019-06-23] MEDS: HEPARIN SOD (PORCINE) 5000UNITS/ML VIAL (J1644 PER 1000UNITS) SC SCH ×3 (06:35→21:01)
[2019-06-23] MEDS: SLF 3 ML SYR IV SCH ×3 (06:35→20:26)
[2019-06-23] MEDS: HumaLOG INSULIN (NovoLOG) PER UNIT SC SCH ×4 (07:30→20:25)
[2019-06-23 08:00] VITALS: BP 128/71
[2019-06-23] MEDS: PANTOPRAZOLE 40MG VIAL (C9113 PER 1) IV SCH ×2 (08:30→20:25)
[2019-06-23] MEDS: FLUoxetine 20 MG CAP PO SCH (08:31)
[2019-06-23] MEDS: lisinopriL 10 MG TAB PO SCH (08:31)
[2019-06-23] MEDS ORDERED: LEVEMIR (INSULIN DETEMIR) 1 UNITS/0.01ML SC SCH (09:00)
[2019-06-23 11:07] VITALS: BP 125/76
--- NOTE | 2019-06-23 11:12 | IPNPDOC ---
Date Seen The patient was seen on 06/23/19. Progress Note SUBJECTIVE: N/V improved, abdominal tenderness, also improved. She was given 10 units of insulin in the PACU after EGD, subsequent glucose checks reveals a post of 304, she was administered insulin via insulin sliding scale. Nonetheless, glucose declined to 30 4 in the evening, patient became obtuse, and glucose was administered. Discussed with patient, will keep overnight for glucose control with plan to DC home on 06/23/2019. Current regimen is reduced home dose with long-acting 10 units, 5 units short acting before meals, with insulin sliding scale. Continue reflux recommendations by GI. OBJECTIVE PHYSICAL EXAMINATION: PHYSICAL EXAMINATION: VITAL SIGNS: Please see below. GENERAL: Elderly female, appears fatigued but in no distress, HEENT: Normocephalic, atraumatic, moist mucous membranes NECK: Supple CARDIOVASCULAR EXAMINATION: S1, S2 RESPIRATORY EXAMINATION: CTAB ABDOMINAL EXAMINATION: Soft, tenderness to palpation in the epigastric and RUQ, non-distended, positive bowel sounds EXTREMITIES: no edema SKIN: No rash NEUROLOGICAL EXAMINATION: Awake PSYCHIATRIC EXAMINATION: no SI/HI, +depression, (changes in sleep, concentration, appetite, interest) Pt is a 53yF with PMH of IDDM, Asthma, GERD, HTN, Anemia (chronic), Chronic RUQ abd pain, Chronic loose stool/diarrhea, IBS, Environmental allergies, Chronic low back pain, PSH of gastric bypass/jackie fundoplication p/w with DKA weekly secondary to noncompliance versus worsening GERD. Inpt. #DKA/IDDM: A1c is 9.4, resolved -Will trial dosing changes for insulin, if tolerable. We'll discharge on U regimen with follow-up with PCP, patient is in the process of establishing with [facility], if compliant, I do think patient would benefit from insulin pump -secondary to suspected relation to depression and hx of jackie fundoplication contributing to n/v -u/a neg, blood cultures 2 neg -VBG stable -plan to resume home DM meds: Pt takes trulicity 1.5 mg every weekly, insulin aspartate 5 units before meals, and degludec 30 units daily -d/t hypoglycemia o/n 06/20/19, will start D5 1/2 NS, glu checks q6h, reduce insulin dose -PT cleared patient #n/v, Hx GERD/likely gastroparesis DM: -f/u EGD 06/22/19, f/u GI -secondary to suspected relation to depression and hx of jackie fundoplication contributing to n/v -XR esophagram +GERD and hiatal hernia, clear liquids, NPO at midnight -increase PPI to BID -cont anti-emetic regimen #depression, trial of starting reglan, contraindicated with SSRI, once n/v controlled, will consider transitioning to Phenergan can consider starting fluoxetine 20mg QD d/t drug interaction category D with reglan and SSRI -Tolerating SSRI, will need to follow-up with PCP in 1 week after discharge and reassessment of medication #Leukocytosis secondary to stress reaction versus infection, has intermittent fever, chest x-ray is not suggestive of pneumonia, UA, not suggestive of UTI, f/u blood cultures obtained on 06/19/2019, hold off on additional antibiotics at this time, CT abd and pelvis 06/18/19 not suggestive of infection -resolved without Abx #pseudohyponatremia secondary to DKA -resolved #Hyperkalemia, resolved, likely secondary to DKA/insulin, will monitor -without peaked T waves, troponin 2 negative, resolved, will continue with fluids and monitor with EKG and potassium levels, since patient is already on insulin drip, will also administer Kayexalate and calcium gluconate, will consider Lasix if fluid overloaded, if worsening along with CRISTINE, well consider nephrology consult for dialysis, magnesium levels within normal limits, will recheck in the a.m. #CRISTINE, likely secondary to above, and hypovolemic status with nausea, vomiting, resolved, continue IVF, see above -resolved #Hyperphosphatemia secondary to above, resolved, continue IVF #Asthma: Continue home inhaler #HFpEF/HTN/HLD: Continue home meds #Mood disorders: Continue home meds #anemia: cont home Fe #back pain: cont home meds #GERD: cont home meds DVT ppx: heparin Full code Dispo: Patient will be inpatient for at least 2 midnights -anticipated dc home earliest 06/24/19, PT eval cleared 32 minutes spent on patient care, greater than 50% was spent on patient education VS, I&O, 24H, Fishbone Vital Signs/I&O Vital Signs Date Time Temp Pulse Resp B/P (MAP) Pulse Ox O2 Delivery O2 Flow Rate FiO2 06/23/19 08:31 128/71 06/23/19 08:00 100.8 98 18 96 Room Air 06/22/19 15:13 10 I&O- Last 24 Hours up to 6 AM 06/23/19 06:00 Intake Total 1330 ml Output Total 1100 ml Balance 230 ml Laboratory Data 24H LABS Laboratory Tests 2 06/22/19 08:45: Urine Color YELLOW, Urine Appearance CLEAR, Urine pH 6.0, Urine Specific [place] 1.026, Urine Protein NEGATIVE, Urine Glucose (UA) 3+H, Urine Ketones 1+H, Urine Blood NEGATIVE, Urine Nitrite NEGATIVE, Urine Bilirubin NEGATIVE, Urine Urobilinogen 0.2, Urine Leukocyte Esterase TRACEH, Urine WBC (Auto) 1, Urine RBC (Auto) 1, Urine Hyaline Casts (Auto) 0, Urine Bacteria (Auto) NEGATIVE, Urine Squamous Epithelial Cells 0, Urine Mucus (Auto) SMALL, Urine Sperm (Auto) 06/22/19 11:27: Bedside Glucose (Misc Panel) 501*H 06/22/19 12:54: Bedside Glucose (Misc Panel) 429H 06/22/19 13:49: Bedside Glucose (Misc Panel) 373H 06/22/19 15:10: Bedside Glucose (Misc Panel) 314H 06/22/19 16:13: Bedside Glucose (Misc Panel) 304H 06/22/19 19:46: Bedside Glucose (Misc Panel) 39*L 06/22/19 20:22: Bedside Glucose (Misc Panel) 92 06/22/19 22:05: Bedside Glucose (Misc Panel) 177H 06/22/19 23:34: Bedside Glucose (Misc Panel) 272H 06/23/19 05:10: Nucleated Red Blood Cells % (auto) 0.0, Anion Gap 15, Glomerular Filtration Rate > 60.0, Calcium Level 8.3L 06/23/19 07:32: Bedside Glucose (Misc Panel) 391H CBC/BMP Laboratory Tests 06/23/19 05:10 Microbiology Microbiology 06/22/19 Urine Culture - Final, Complete 06/22/19 Gram Stain - Final, Complete 06/22/19 Sputum Culture - Final, Complete 06/22/19 Blood Culture - Preliminary, Resulted No growth after 24 hours . All specim... 06/22/19 Blood Culture - Preliminary, Resulted No growth after 24 hours . All specim... 06/19/19 Blood Culture - Preliminary, Resulted No Growth after 72 hours. All specime... 06/19/19 Blood Culture - Preliminary, Resulted No Growth after 72 hours. All specime... JULIOCESAR HONG MD June 23, 2019 08:35
[2019-06-23] MEDS: NovoLOG MIX 70/30 PER UNIT SC SCH ×2 (12:00→16:36)
[2019-06-23 14:00] VITALS: BP 128/76
[2019-06-23] MEDS ORDERED: LIDOCAINE VISCOUS 2% SOLN 15ML UDC SS PRN (18:15)
[2019-06-23 22:00] VITALS: BP 159/88
[2019-06-24] MEDS: PROMETHAZINE 25 MG TAB PO SCH ×3 (02:20→14:32)
[2019-06-24] MEDS: SLF 3 ML SYR IV SCH ×2 (05:21→13:11)
[2019-06-24] MEDS: HEPARIN SOD (PORCINE) 5000UNITS/ML VIAL (J1644 PER 1000UNITS) SC SCH ×2 (05:21→13:10)
[2019-06-24 06:00] VITALS: BP 127/74
[2019-06-24] MEDS: MAALOX 30 ML SUSP *UDC PO PRN ×2 (06:55→13:10)
[2019-06-24 07:12] LABS: HEMOGLOBIN 12.6 g/dl (12.0-15.5); MEAN CORPUSCULAR HEMOGLOBIN 30.9 pg (27.0-33.0); MEAN CORPUSCULAR HGB CONC 32.3 g/dl (32.0-36.5); MEAN CORPUSCULAR VOLUME 95.6 fl (80.0-96.0); PLATELET COUNT, AUTOMATED 398 10^3/uL (150-450); RED BLOOD COUNT 4.08 10^6/uL (4.00-5.40); WHITE BLOOD COUNT 9.8 10^3/uL (4.0-10.0)
[2019-06-24] MEDS: HumaLOG INSULIN (NovoLOG) PER UNIT SC SCH ×4 (07:30→17:01)
[2019-06-24 08:01] LABS: CALCIUM LEVEL 8.4 MG/DL (8.5-10.1); CREATININE FOR GFR 1.04 MG/DL (0.55-1.30); GLOMERULAR FILTRATION RATE 58.6 (>51); POTASSIUM SERUM 4.4 MEQ/L (3.5-5.1)
[2019-06-24 08:21] VITALS: BP 150/80
[2019-06-24] MEDS: lisinopriL 10 MG TAB PO SCH (08:21)
[2019-06-24] MEDS: FLUoxetine 20 MG CAP PO SCH (08:21)
[2019-06-24] MEDS: SUCRALFATE SUSP 1GM/10ML UD PO SCH ×3 (08:21→16:54)
[2019-06-24] MEDS: PANTOPRAZOLE 40MG VIAL (C9113 PER 1) IV SCH (08:22)
[2019-06-24] MEDS ORDERED: LEVEMIR (INSULIN DETEMIR) 1 UNITS/0.01ML SC SCH ×2 (09:00→21:00)
[2019-06-24] MEDS: ONDANSETRON 4MG/2ML VIAL IV PRN (11:02)
--- NOTE | 2019-06-24 11:53 | IPNPDOC ---
Date Seen The patient was seen on 06/24/19. Progress Note SUBJECTIVE: N/V improved, abdominal tenderness, also improved. Unfortunately, patient's glucose levels and insulin regimen is quite regulated for discharge. I did speak with both endocrinology and GI today. Plan for long-acting insulin 5 units during the day and 5 units at night, may increase the nighttime dose to 7, continue insulin sliding scale, no AC insulin addition at this time. Check gl ucose levels 30 minutes after meals, and replace accordingly, allow meals to be 50 mL's, dietary consulted, if above plan fails, may consider transfer to tertiary site for possible bariatric surgery. No Reglan at this time, may result in adverse reaction of stomach spasms post-site of Jackie fundoplication. Continue anti-emetics management. OBJECTIVE PHYSICAL EXAMINATION: PHYSICAL EXAMINATION: VITAL SIGNS: Please see below. GENERAL: Elderly female in no distress, HEENT: Normocephalic, atraumatic, moist mucous membranes NECK: Supple CARDIOVASCULAR EXAMINATION: S1, S2 RESPIRATORY EXAMINATION: CTAB ABDOMINAL EXAMINATION: Soft, slight tenderness to palpation in the epigastric and RUQ, non-distended, positive bowel sounds EXTREMITIES: no edema SKIN: No rash NEUROLOGICAL EXAMINATION: Awake PSYCHIATRIC EXAMINATION: no SI/HI, +depression, (changes in sleep, concent ration, appetite, interest) Pt is a 53yF with PMH of IDDM, Asthma, GERD, HTN, Anemia (chronic), Chronic RUQ abd pain, Chronic loose stool/diarrhea, IBS, Environmental allergies, Chronic low back pain, PSH of gastric bypass/jackie fundoplication p/w with DKA weekly secondary to noncompliance versus worsening GERD. Inpt. #DKA/IDDM: A1c is 9.4, resolved -Plan for long-acting insulin 5 units during the day and 5 units at night, may increase the nighttime dose to 7, continue insulin sliding scale, no AC insulin addition at this time. Check glucose levels 30 minutes after meals, and replace accordingly -If tolerated, will discharge home on this regimen #n/v, Hx GERD/likely gastroparesis DM: -f/u EGD 06/22/19, f/u GI allow meals to be 50 mL's, dietary consulted, if above plan fails, may consider transfer to tertiary site for possible bariatric surgery. No Reglan at this time, may result in adverse reaction of stomach spasms post-site of Jackie #depression, trial of starting reglan, contraindicated with SSRI, once n/v controlled, will consider transitioning to Phenergan can consider starting fluoxetine 20mg QD d/t drug interaction category D with reglan and SSRI -Tolerating SSRI, will need to follow-up with PCP in 1 week after discharge and reassessment of medication #Leukocytosis secondary to stress reaction versus infection, has intermittent fever, chest x-ray is not suggestive of pneumonia, UA, not suggestive of UTI, f/u blood cultures obtained on 06/19/2019, hold off on additional antibiotics at this time, CT abd and pelvis 06/18/19 not suggestive of infection -resolved without Abx #pseudohyponatremia secondary to DKA -resolved #Hyperkalemia, resolved, likely secondary to DKA/insulin, will monitor -without peaked T waves, troponin 2 negative, resolved, will continue with fluids and monitor with EKG and potassium levels, since patient is already on insulin drip, will also administer Kayexalate and calcium gluconate, will consider Lasix if fluid overloaded, if worsening along with CRISTINE, well consider nephrology consult for dialysis, magnesium levels within normal limits, will recheck in the a.m. #CRISTINE, likely secondary to above, and hypovolemic status with nausea, vomiting, resolved, continue IVF, see above -resolved #Hyperphosphatemia secondary to above, resolved, continue IVF #Asthma: Continue home inhaler #HFpEF/HTN/HLD: Continue home meds #Mood disorders: Continue home meds #anemia: cont home Fe #back pain: cont home meds #GERD: cont home meds DVT ppx: heparin Full code Dispo: Patient will be inpatient for at least 2 midnights dc home pending on clinical presentation 40 minutes spent on patient care VS, I&O, 24H, Fishbone Vital Signs/I&O Vital Signs Date Time Temp Pulse Resp B/P (MAP) Pulse Ox O2 Delivery O2 Flow Rate FiO2 06/24/19 08:21 150/80 06/24/19 06:00 98.9 90 18 95 Room Air 06/22/19 15:13 10 I&O- Last 24 Hours up to 6 AM 06/24/19 06:00 Intake Total 1165 ml Output Total 1225 ml Balance -60 ml Laboratory Data 24H LABS Laboratory Tests 2 06/23/19 14:35: Bedside Glucose (Misc Panel) 93 06/23/19 16:23: Bedside Glucose (Misc Panel) 62L 06/24/19 06:25: Nucleated Red Blood Cells % (auto) 0.0, Anion Gap 17H, Glomerular Filtration Rate 58.6, Calcium Level 8.4L CBC/BMP Laboratory Tests 06/24/19 06:25 Microbiology Microbiology 06/22/19 Urine Culture - Final, Complete 06/22/19 Gram Stain - Final, Complete 06/22/19 Sputum Culture - Final, Complete 06/22/19 Blood Culture - Preliminary, Resulted No Growth after 48 hours. All Specime... 06/22/19 Blood Culture - Preliminary, Resulted No Growth after 48 hours. All Specime... 06/19/19 Blood Culture - Final, Complete NO GROWTH AFTER 5 DAYS 06/19/19 Blood Culture - Final, Complete NO GROWTH AFTER 5 DAYS JULIOCESAR HONG MD June 24, 2019 11:53
--- NOTE | 2019-06-24 13:36 | DS.PDOC ---
Discharge Summary General Date of Admission June 19, 2019 at 10:19 Date of Discharge 06/24/19 Discharge Summary PROCEDURES PERFORMED DURING STAY: EGD 06/22/19. ADMITTING DIAGNOSES: 1. DKA. DISCHARGE DIAGNOSES: 1.DKA, nausea, vomiting, likely secondary to severe esophagitis status post EGD. COMPLICATIONS/CHIEF COMPLAINT: Dka (Diabetic Ketoacidoses). HISTORY OF PRESENT ILLNESS/HOSPITAL COURSE: Pt is a 53yF with PMH of IDDM, Asthma, GERD, HTN, Anemia (chronic), Chronic RUQ abd pain, Chronic loose stool/diarrhea, IBS, Environmental allergies, Chronic low back pain, PSH of gretchen fundoplication 6-7y ago p/w with DKA weekly secondary to noncompliance versus worsening GERD. Her A1c 9.4. She was admitted to the ICU for DKA insulin drip where her gap eventually closed. However, her nausea and vomiting did not improve with multiple anti-emetics. She was also noted to be depressed >5/9 on SIGECAPS without SI/HI. Throughout patient's hospital stay she was found to have pseudohyponatremia, which resolved, hyperkalemia secondary to DKA, negative peaked T waves, negative troponins which resolved. He also had CRISTINE and hyperphosphatemia which also resolved. After resolution of DKA, GI was subseq uently consulted, esophagram was ordered revealing hiatal hernia and reflux. Abdominal ultrasound also revealed no acute findings, status post cholecystectomy. She had EGD performed on 06/22/[address] Gardner dilated revealed stenosed site to 20mm, and found LA grade D Esophagitis. GI recommendations to continue clear liquid diet for 1 day and advance as tolerated to Gastroparesis diet. Continue Protonix 40 mg twice a day by mouth to be taken half an hour before breakfast and at least 3 hours after last meal for 3 months, sucralfate suspension 1 g by mouth 4 times a day for 6 weeks, repeat EGD in 3 months, call GI clinic for pathology results in 2 weeks, follow-up with GI in 4- 6 weeks. PT evaluated patient and cleared patient. She was also started on fluoxetine, and is to follow-up with PCP in 1 week. Throughout her hospitalization, u/a neg, blood cultures 2 neg, despite fevers and initial leukocytosis, patient likely did not have an infection, no antibiotics were found. Patient initially had improved appetite after dilation, nonetheless, due to poor by mouth intake, patient had a few episodes of hypoglycemia, subsequently insulin dosing was reduced to 10 units of long-acting, and insulin sliding scale low dose, patient's glucose varied from hypoglycemia as low as 69 and episodes of Hyperglycemia above 500. I discussed case with Dr. Caitlin Najera, endocrinology, on 06/24/19 who recommended 5 units of long-acting in the a.m. and 5 to 7U in the PM, continuation of insulin sliding scale, glucose checks 30 minutes after meals. I also discussed case case with GI, who recommended low residual versus 50 mL max amount of food per meal, no Reglan due to adverse effects of muscle spasm, continuation of anti-emetics. If still unable to improve patient's symptoms, we'll need to consider with transfer to a facility that can provide gastric bypass or reversal of Gretchen fundoplication. Pt had bariatric surgery performed by Dr. Rosaura Najera at [facility]. Called [facility] transfer ([phone]), Dr. Ku is the accepting physician. OBJECTIVE PHYSICAL EXAMINATION: PHYSICAL EXAMINATION: VITAL SIGNS: Please see below. GENERAL: Elderly female, appears fatigued but in no distress, HEENT: Normocephalic, atraumatic, moist mucous membranes NECK: Supple CARDIOVASCULAR EXAMINATION: S1, S2 RESPIRATORY EXAMINATION: CTAB ABDOMINAL EXAMINATION: Soft, tenderness to palpation in the epigastric and RUQ, non-distended, positive bowel sounds EXTREMITIES: no edema SKIN: No rash NEUROLOGICAL EXAMINATION: Awake PSYCHIATRIC EXAMINATION: no SI/HI, +depression, (changes in sleep, concentration, appetite, interest) DISCHARGE MEDICATIONS: Please see below. ACTIVITY: As tolerated. DIET: clear liquid , advance as tolerated to gastroparesis diet Time spent on discharge: 60 minutes. Vital Signs/I&Os Vital Signs Date Time Temp Pulse Resp B/P (MAP) Pulse Ox O2 Delivery O2 Flow Rate FiO2 06/22/19 16:00 99.5 88 18 148/82 (104) 97 Room Air 06/22/19 15:13 10 I&O- Last 24 Hours up to 6 AM 06/22/19 06:00 Intake Total 2480 ml Output Total 2275 ml Balance 205 ml Laboratory Data Labs 24H Laboratory Tests 2 06/21/19 18:03: Bedside Glucose (Misc Panel) 259H 06/21/19 19:55: Bedside Glucose (Misc Panel) 102 06/21/19 20:22: Coronavirus (COVID-19)(PCR) NEGATIVE 06/21/19 23:48: Bedside Glucose (Misc Panel) 41L 06/22/19 00:22: Bedside Glucose (Misc Panel) 96 06/22/19 01:13: Bedside Glucose (Misc Panel) 76 06/22/19 03:15: Bedside Glucose (Misc Panel) 151H 06/22/19 05:14: Nucleated Red Blood Cells % (auto) 0.0, Anion Gap 6L, Glomerular Filtration Rate > 60.0, Calcium Level 7.7L 06/22/19 08:45: Urine Color YELLOW, Urine Appearance CLEAR, Urine pH 6.0, Urine Specific [place] 1.026, Urine Protein NEGATIVE, Urine Glucose (UA) 3+H, Urine Ketones 1+H, Urine Blood NEGATIVE, Urine Nitrite NEGATIVE, Urine Bilirubin NEGATIVE, Urine Urobilinogen 0.2, Urine Leukocyte Esterase TRACEH, Urine WBC (Auto) 1, Urine RBC (Auto) 1, Urine Hyaline Casts (Auto) 0, Urine Bacteria (Auto) NEGATIVE, Urine Squamous Epithelial Cells 0, Urine Mucus (Auto) SMALL, Urine Sperm (Auto) 06/22/19 11:27: Bedside Glucose (Misc Panel) 501*H 06/22/19 12:54: Bedside Glucose (Misc Panel) 429H 06/22/19 13:49: Bedside Glucose (Misc Panel) 373H 06/22/19 15:10: Bedside Glucose (Misc Panel) 314H 06/22/19 16:13: Bedside Glucose (Misc Panel) 304H CBC/BMP Laboratory Tests 06/22/19 05:14 FSBS Laboratory Tests Test 06/21/19 18:03 06/21/19 19:55 06/21/19 23:48 06/22/19 00:22 Range/Units Bedside Glucose (Misc Panel) 259 102 41 96 70-105 MG/DL Test 06/22/19 01:13 06/22/19 03:15 06/22/19 11:27 06/22/19 12:54 Range/Units Bedside Glucose (Misc Panel) 76 151 501 429 70-105 MG/DL Test 06/22/19 13:49 06/22/19 15:10 06/22/19 16:13 Range/Units Bedside Glucose (Misc Panel) 373 314 304 70-105 MG/DL Microbiology Microbiology 06/22/19 Urine Culture, Received Pending 06/22/19 Gram Stain - Final, Complete 06/22/19 Sputum Culture - Final, Complete 06/22/19 Blood Culture, Received Pending 06/22/19 Blood Culture, Received Pending 06/19/19 Blood Culture - Preliminary, Resulted No Growth after 72 hours. All specime... 06/19/19 Blood Culture - Preliminary, Resulted No Growth after 72 hours. All specime... Discharge Medications Scheduled Aspirin (Aspirin EC) 81 Mg Tabec, 81 MG PO DAILY, (Reported) Atorvastatin Calcium (Atorvastatin Calcium) 20 Mg Tablet, 20 MG PO DAILY, (Rep orted) Cholecalciferol (Vitamin D3) (Vitamin D3) 1,000 Unit Tablet, 1,000 UNITS PO DAILY, (Reported) Clonazepam (Clonazepam) 1 Mg Tablet, 1 MG PO TID, (Reported) Dulaglutide (Trulicity) 1.5 Mg/0.5 Ml Inj, 1.5 MG SC QWEEK, (Reported) TAKES ON WEDNESDAYS Ferrous Sulfate (Ferrous Sulfate) 325 Mg Tab, 325 MG PO DAILY, (Reported) Fluoxetine Hcl (Fluoxetine HCl) 20 Mg Capsule, 20 MG PO DAILY Insulin Aspart (Niacinamide) (Fiasp 100 Unit/ml Flextouch) 100 Unit/1 Ml Insuln.pen, 5 UNITS SC AC, (Reported) Insulin Degludec (Tresiba Flextouch U-100) 100 Unit/1 Ml Insuln.pen, 30 UNIT SC DAILY, (Reported) Methocarbamol (Methocarbamol) 500 Mg Tablet, 500 MG PO BID, (Reported) Multivitamins (Thera M Plus Tablet) 1 Tab Tab, 1 TAB PO DAILY, (Reported) Pantoprazole Sodium (Pantoprazole Sodium) 40 Mg Tablet.dr, 40 MG PO BID Pregabalin (Pregabalin) 75 Mg Capsule, 75 MG PO BID, (Reported) Sucralfate (Sucralfate) 1 Gm Tablet, 1 GM PO QID Tizanidine HCl (Tizanidine HCl) 4 Mg Tablet, 4 MG PO TID, (Reported) Varenicline (Chantix) 1 Mg Tablet, 1 MG PO BID, (Reported) Scheduled PRN Albuterol Sulfate (Ventolin Hfa) 108 Mcg/Act Aer, 2 PUFFS INH Q4H PRN for SHOR TNESS OF BREATH, (Reported) Ammonium Lactate (Ammonium Lactate) 12 % Cre, 1 DOSE TOP DAILY PRN for PAIN, (Reported) APPLY TO FEET Docusate Sodium (Colace) 100 Mg Cap, 100 MG PO BID PRN for CONSTIPATION, (Reported) Glucagon,Human Recombinant (Glucagon Emergency Kit) 1 Mg Kit, 1 MG IM ASDIRECTED PRN for LOW BLOOD SUGAR, (Reported) Lidocaine (Lidocaine) 120 Gm Oint...g., 1 DOSE TOP DAILY PRN for BACK PAIN, (Reported) Ondansetron (Ondansetron Odt) 4 Mg Tab.rapdis, 4 MG PO TID PRN for NAUSEA, (Reported) Oxycodone HCl/Acetaminophen (Oxycodone-Acetaminophen 5-325) 1 Each Tablet, 1 TAB PO BID PRN for PAIN, (Reported) Polyethylene Glycol 3350 (Miralax) 119 Gm Powder, 17 GM PO DAILY PRN for CONSTIPATION, (Reported) Propylene Glycol/Peg 400 (Systane 0.3-0.4% Eye Drops) 15 Ml Sade, 1 DROP OU QID PRN for DRY EYES, (Reported) Sodium Chloride (Satartia) 0.65 % Spr, 2 SPRAY NA QID PRN for NASAL DRYNESS, (Reported) Trazodone HCl (Trazodone HCl) 50 Mg Tablet, 50 MG PO QHS PRN for SLEEP, (Reported) Miscellaneous Medications [Patient Comment] , (Reported) UNABLE TO VERIFY MEDICATIONS WITH PATIENT - MED LIST OBTAINED FROM PHARMACY. Allergies Coded Allergies: TAPE (Verified Allergy, Mild, PLASTIC TAPE- RASH, 09/26/17) BANDAIDS -RASH prednisone (Verified Adverse Reaction, Intermediate, EXTREME ELEVATED BLOOD SUGAR, 06/08/18) Gluten Flour (Verified Adverse Reaction, Mild, diarrhea, 09/26/17) gluten (Verified Adverse Reaction, Mild, DIARRHEA, 06/08/18) JULIOCESAR HONG MD June 22, 2019 16:38
[2019-06-24 14:00] VITALS: BP 129/64
[2019-06-24] MEDS ORDERED: ONDA4TAB6 SL (14:14)
[2019-06-24] MEDS ORDERED: PROM25TA12 PO (14:14)
[2019-06-24] MEDS ORDERED: SUCR1ORA PO (14:14)
[2019-06-24] MEDS ORDERED: INSUDET SC (14:14)
[2019-06-24] MEDS: PROCHLORPERAZINE 10MG/2ML VIAL (J0780 PER 1) IV PRN (16:54)
[2019-06-24] MEDS ORDERED: ONDANSETRON 4 MG ORAL DISINTEGRATING TAB SL SCH (18:00)
== END 2019-06-24 18:25 | disposition short-term general hospital (02) | DRG 74 ==
LOC: M ED 07:51 → M ED INP 10:19 → M ICU 11:50 → M PCU 06-20 18:39 → M MSPAV 06-23 11:00
PROVIDERS: ADMIT Family Medicine; ATTEND Family Medicine
PROC: 0D768ZZ Dilation of Stomach, Via Natural or Artificial Opening Endoscopic (ICD-10-PCS; 2019-06-22)
PROC: 0DB38ZX Excision of Lower Esophagus, Via Natural or Artificial Opening Endoscopic, Diagnostic (ICD-10-PCS; principal; 2019-06-22 14:00)
DX: E10.42 Type 1 diabetes mellitus with diabetic polyneuropathy (principal); K95.89 Other complications of other bariatric procedure; N17.9 Acute kidney failure, unspecified; I50.32 Chronic diastolic (congestive) heart failure; K90.41 Non-celiac gluten sensitivity; E10.10 Type 1 diabetes mellitus with ketoacidosis without coma; K21.0 Gastro-esophageal reflux disease with esophagitis; E10.43 Type 1 diabetes mellitus with diabetic autonomic (poly)neuropathy; K31.84 Gastroparesis; K90.0 Celiac disease; J45.909 Unspecified asthma, uncomplicated; D64.9 Anemia, unspecified; Z91.19 Patient's noncompliance with other medical treatment and regimen; Z79.82 Long term (current) use of aspirin; Z79.899 Other long term (current) drug therapy; Z79.4 Long term (current) use of insulin; Z88.8 Allergy status to other drugs, medicaments and biological substances; E87.5 Hyperkalemia; E83.42 Hypomagnesemia; M54.5 Low back pain; F32.9 Major depressive disorder, single episode, unspecified; E83.39 Other disorders of phosphorus metabolism; E78.5 Hyperlipidemia, unspecified; K44.9 Diaphragmatic hernia without obstruction or gangrene

== ENCOUNTER 2019-07-06 02:01 | Inpatient (IN) | payer OTHER, MEDICAID ==
[2019-07-06] VITALS (9 sets, daily range): BP systolic 103–126; BP diastolic 57–64
[~2019-07-06] VITALS: Ht 162.6 cm; Wt 59.9 kg
[~2019-07-06 02:01] MED LIST changes: +FIAS100I2 SC; +FLUO20CA22 PO; +ONDA4TAB6 SL; +PATIENT COMMENT; +PREG75CA2 PO; +PROM25TA12 PO; +SUCR1ORA PO; +TRES1INJ2 SC
[2019-07-06 02:38] LABS: BASO # 0.2 10^3/uL (0.0-0.2); BASO % 0.8 % (0.0-1.0); EOS % 0.2 % (0.0-3.0); HEMATOCRIT 41.3 % (36.0-47.0); HEMOGLOBIN 12.8 g/dl (12.0-15.5); LYMPH # 1.4 10^3/uL (1.5-5.0); LYMPH % 7.4 % (24.0-44.0); MEAN CORPUSCULAR HEMOGLOBIN 30.8 pg (27.0-33.0); MEAN CORPUSCULAR VOLUME 99.3 fl (80.0-96.0); MONO % 5.4 % (0.0-5.0); NEUTROPHILS # 16.6 10^3/uL (1.5-8.5); NEUTROPHILS % 85.1 % (36.0-66.0); PLATELET COUNT, AUTOMATED 479 10^3/uL (150-450); RED BLOOD COUNT 4.16 10^6/uL (4.00-5.40); VENOUS BASE EXCESS -20.9 (-2.0-2.0); VENOUS HCO3 7.1 MEQ/L (23.0-27.0); VENOUS O2 SATURATION 93.6 % (60.0-80.0); VENOUS PARTIAL PRESSURE CO2 23.2 mmHg (38.0-50.0); VENOUS PARTIAL PRESSURE O2 82.1 mmHg (30.0-50.0); VENOUS PH 7.102 UNITS (7.330-7.430); VENOUS STANDARD HCO3 9.6 MEQ/L; VENOUS TOTAL CO2 7.8 MEQ/L (24.0-28.0); WHITE BLOOD COUNT 19.4 10^3/uL (4.0-10.0)
[2019-07-06] MEDS ORDERED: ONDANSETRON 4MG/2ML VIAL As Ordered ONE (02:44)
[2019-07-06] MEDS ORDERED: NS 1,000 ML IV ONE (02:45)
[2019-07-06] MEDS ORDERED: ONDANSETRON 4MG/2ML VIAL IV ONE (02:45)
[2019-07-06 02:58] LABS: HEMOGLOBIN A1c 9.3 %
[2019-07-06 03:01] LABS: ACETONE/KETONE > 46.00 MG/DL (<2.81); ALBUMIN 3.3 GM/DL (3.2-5.2); ALT/SGPT 79 U/L (12-78); BILIRUBIN,DIRECT 0.1 MG/DL (0.0-0.2); BILIRUBIN,TOTAL 0.4 MG/DL (0.2-1.0); BLOOD UREA NITROGEN 20 MG/DL (7-18); CALCIUM LEVEL 9.2 MG/DL (8.5-10.1); CARBON DIOXIDE LEVEL 10 MEQ/L (21-32); CHLORIDE LEVEL 99 MEQ/L (98-107); CREATININE FOR GFR 1.21 MG/DL (0.55-1.30); GLOMERULAR FILTRATION RATE 49.2 (>51); GLUCOSE, FASTING 678 MG/DL (70-100); LIPASE 100 U/L (73-393); POTASSIUM SERUM 4.8 MEQ/L (3.5-5.1); SODIUM LEVEL 133 MEQ/L (136-145)
[2019-07-06] MEDS ORDERED: HumuLIN R (REGULAR) INSULIN (NovoLIN R) **100U/ML** PER UNIT IV ONE (03:15)
[2019-07-06] MEDS ORDERED: INSULIN HUMAN REGULAR 100 UNITS in NS 99 ML IV SCH (03:30)
[2019-07-06] MEDS ORDERED: PROM25TA12 PO (03:53)
[2019-07-06] MEDS ORDERED: PANT-23 PO (03:53)
[2019-07-06] MEDS ORDERED: ONDA4TAB6 PO (03:53)
[2019-07-06] MEDS ORDERED: PROMETHAZINE INJ 25 MG/ML VIAL (J2550) As Ordered ONE (03:57)
[2019-07-06] MEDS ORDERED: PROMETHAZINE INJ 25 MG/ML VIAL (J2550) IV PRN (04:00)
[2019-07-06] MEDS ORDERED: KCL 20MEQ in NS 1000ML 1,000 ML IV SCH (04:45)
[2019-07-06] MEDS ORDERED: INSULIN REGULAR IN 0.9 % NACL 100 UNIT in IV 1 EA IV SCH ×2 (06:00)
[2019-07-06] MEDS ORDERED: PANTOPRAZOLE 40MG VIAL (C9113 PER 1) IV ONE (06:30)
[2019-07-06 06:31] LABS: CALCIUM LEVEL 8.2 MG/DL (8.5-10.1); CREATININE FOR GFR 1.06 MG/DL (0.55-1.30); GLOMERULAR FILTRATION RATE 57.3 (>51); POTASSIUM SERUM 4.7 MEQ/L (3.5-5.1)
--- NOTE | 2019-07-06 06:48 | REP ---
Clinical: Sepsis . Comparison: 06/22/2019 . Findings: The mediastinum and cardiac silhouette are stable and within normal limits for portable technique. The lung alanis are clear without acute consolidation, effusion, or pneumothorax. Skeletal structures are intact. Impression: No acute cardiopulmonary process appreciated. Electronically Signed by Shin Zarco MD 07/06/2019 06:39 A
--- NOTE | 2019-07-06 07:41 | HPEPDOC ---
[facility] Medical History & Physical Date of Admission July 06, 2019 Date of Service: July 06, 2019 Attending Physician: Dasha Paige MD History and Physical CHIEF COMPLAINT: vomiting, weakness HISTORY OF PRESENT ILLNESS: Alia Sierra is a 53 year old female who presents with 1 day history of vomiting and several days of weakness. She was recently admitted for DKA and was transferred to [facility] in [place] for possible surgical procedure. She returned home at the end of last week, no surgery was done in [place] per patient. She states that since she returned home she has been feeling weak and fatigued. She states she has not gotten out of bed much. She states this became worse this morning when she did not get out of bed at all. She notes she was eating normally during the day but around 7pm she began vomiting. She continues to have nausea. She states she has some upper abdominal soreness from the vomiting, otherwise did not have abdominal pain prior to vomiting. No diarrhea. She does state that her home insulin regimen was changed during her recent hospitalization. PAST MEDICAL HISTORY: 1. Diabetes Mellitus Type 1 with gastroparesis. 2. JERAD 3. HTN 4. GERD s/p Gretchen Fundoplication 5. Celiac Disease 6. Hyperlipidemia 7. Asthma 8. Hx of TIA 9. Hiatal Hernia 10. History of Upper GI bleed 2/2 Gastritis in 2014 PAST SURGICAL HISTORY: 1. Gretchen Fundoplication 2. Gastric Sleeve 11/25/2013 3. EGD 2011 w/Esophagitis 4. Colonoscopy 2014 5. ERCP w/ Papillotomy and Balloon Sweep (06/10/2018) 6. Cholecystectomy 7. Appendectomy 8. Section 9. Hysterectomy SOCIAL HISTORY: Former smoker, denies alcohol use, denies illicit drug use. Lives at home with her boyfriend and kids, one grandkid. FAMILY HISTORY: Father of [place], otherwise unknown. ALLERGIES: Please see below. REVIEW OF SYSTEMS: CONSTITUTIONAL: Endorses fatigue. Denies fevers, chills, night sweats, unexpected change in weight. HEENT: Denies change in vision, change in hearing. CARDIOVASCULAR: Denies chest pain, palpitations, shortness of breath, lightheadedness. RESPIRATORY: Denies dyspnea, cough, wheezing. GASTROINTESTINAL: Endorses nausea, vomiting, abdominal pain. Denies diarrhea, constipation, blood in stool. GENITOURINARY: Denies dysuria, urinary frequency, urinary urgency. SKIN: Denies rash, lesions. MUSCULOSKELETAL: Denies joint pain or muscle aches. NEUROLOGICAL: Denies headache, dizziness, weakness. PSYCHIATRIC: Denies change in mood. HOME MEDICATIONS: Please see below. PHYSICAL EXAMINATION: VITAL SIGNS: See below GENERAL: Alert, comfortable, in no acute distress HEENT: Normocephalic, atraumatic, PERRLA, EOMI, sclera anicteric, moist mucous membranes NECK: Supple, trachea midline, no lymphadenopathy, no JVD CARDIOVASCULAR: Regular rate and rhythm, normal S1 and S2. No murmurs, rubs, or gallops RESPIRATORY: Clear to auscultation bilaterally with equal air entry bilaterally. No wheezing, rhonchi, or rales. ABDOMEN: Mildly tender in the epigastric area. Soft, nondistended, bowel sounds present, no masses or hepatosplenomegaly appreciated EXTREMITIES: No cyanosis or edema. Pulses 2+/4 in bilateral upper and lower extremities SKIN: [place], warm, dry NEUROLOGIC: Alert and oriented 3 to person, place and time. No focal deficits appreciated PSYCHIATRIC: Mood and affect appropriate LABORATORY DATA: See below. MICROBIOLOGY: Please see below. ASSESSMENT: 53 year old female with a history of diabetes mellitus and recent admission for DKA PLAN: 1. DKA - elevated anion gap metabolic acidosis, elevated serum ketones - secondary to recent medication changes vs med noncompliance vs less likely infectious - insulin drip, IV fluids 250ml/hr, fsbs q1h, bmp q4h, npo diet - further workup for infectious cause as noted below 2. SIRS criteria met - Elevated WBC, tachycardia. lactic acid also elevated - likely related to DKA and dehydration, less likely infection. - UA negative, CXR pending, blood cultures x2 pending 3. Asthma - Continue home inhaler 4. Hypertension - hold home meds while NPO 5. Chronic anemia - stable, H/H wnl. hold home iron supplement while NPO DVT prophylaxis: sc heparin GI prophylaxis: IV PPI Disposition: admitted to ICU pending clinical improvement Vital Signs Vital Signs Date Time Temp Pulse Resp B/P (MAP) Pulse Ox O2 Delivery O2 Flow Rate FiO2 07/06/19 04:13 07/06/19 02:10 97.3 122 18 100 Laboratory Data Labs 24H Laboratory Tests 2 07/06/19 02:22: Immature Granulocyte % (Auto) 1.1, Neutrophils (%) (Auto) 85.1H, Lymphocytes (%) (Auto) 7.4L, Monocytes (%) (Auto) 5.4H, Eosinophils (%) (Auto) 0.2, Basophils (%) (Auto) 0.8, Neutrophils # (Auto) 16.6H, Lymphocytes # (Auto) 1.4L, Monocytes # (Auto) 1.0H, Eosinophils # (Auto) 0.0, Basophils # (Auto) 0.2, Nucleated Red Blood Cells % (auto) 0.0, Urine Color YELLOW, Urine Appearance HAZY, Urine pH 5.0, Urine Specific [place] 1.021, Urine Protein 1+H, Urine Glucose (UA) 3+H, Urine Ketones 2+H, Urine Blood NEGATIVE, Urine Nitrite NEGATIVE, Urine Bilirubin NEGATIVE, Urine Urobilinogen 0.2, Urine Leukocyte Esterase NEGATIVE, Urine WBC (Auto) 4H, Urine RBC (Auto) 26H, Urine Hyaline Casts (Auto) 0, Urine Bacteria (Auto) NEGATIVE, Urine Squamous Epithelial Cells 0, Urine Mucus (Auto) SMALL, Urine Sperm (Auto) , Blood Gas Bicarbonate Standard 9.6, Venous Blood pH 7.102L, Venous Blood Partial Pressure CO2 23.2L, Venous Blood Partial Pressure O2 82.1H, Venous Blood Total Carbon Dioxide 7.8L, Venous Blood HCO3 7.1L, Venous Blood Oxygen Saturation 93.6H, Venous Blood Base Excess -20.9L, Anion Gap 24H, Glomerular Filtration Rate 49.2L, Estimated Mean Plasma Glucose 220H, Hemoglobin A1c 9.3, Lactic Acid Level 4.5*H, Calcium Level 9.2, Total Bilirubin 0.4, Direct Bilirubin 0.1, Aspartate Amino Transf (AST/SGOT) 99H, Alanine Aminotransferase ( ALT/SGPT) 79H, Alkaline Phosphatase 123H, Total Protein 7.0, Albumin 3.3, Albumin/Globulin Ratio 0.9L, Lipase 100, B-Hydroxybutyrate > 46.00H 07/06/19 04:50: Bedside Glucose (Misc Panel) 422H CBC/BMP Laboratory Tests 07/06/19 02:22 Home Medications Scheduled Aspirin (Aspirin EC) 81 Mg Tabec, 81 MG PO DAILY Atorvastatin Calcium (Atorvastatin Calcium) 20 Mg Tablet, 20 MG PO DAILY Cholecalciferol (Vitamin D3) (Vitamin D3) 1,000 Unit Tablet, 1,000 UNITS PO DAILY Clonazepam (Clonazepam) 1 Mg Tablet, 1 MG PO TID Dulaglutide (Trulicity) 1.5 Mg/0.5 Ml Inj, 1.5 MG SC QWEEK TAKES ON WEDNESDAYS Ferrous Sulfate (Ferrous Sulfate) 325 Mg Tab, 325 MG PO DAILY Insulin Aspart (Niacinamide) (Fiasp 100 Unit/ml Flextouch) 100 Unit/1 Ml Insuln.pen, 1 DOSE SC AC PER SLIDING SCALE Insulin Degludec (Tresiba Flextouch U-100) 100 Unit/1 Ml Insuln.pen, 20 UNIT SC DAILY Methocarbamol (Methocarbamol) 500 Mg Tablet, 500 MG PO BID Multivitamins (Thera M Plus Tablet) 1 Tab Tab, 1 TAB PO DAILY Pantoprazole Sodium (Pantoprazole Sodium) 40 Mg Tablet.dr, 40 MG PO BID Pregabalin (Pregabalin) 75 Mg Capsule, 75 MG PO BID Varenicline (Chantix) 1 Mg Tablet, 1 MG PO BID Scheduled PRN Albuterol Sulfate (Ventolin Hfa) 108 Mcg/Act Aer, 2 PUFFS INH Q4H PRN for SHORTNESS OF BREATH Ammonium Lactate (Ammonium Lactate) 12 % Cre, 1 DOSE TOP DAILY PRN for PAIN APPLY TO FEET Docusate Sodium (Colace) 100 Mg Cap, 100 MG PO BID PRN for CONSTIPATION Glucagon,Human Recombinant (Glucagon Emergency Kit) 1 Mg Kit, 1 MG IM ASDIRECTED PRN for LOW BLOOD SUGAR Lidocaine (Lidocaine) 120 Gm Oint...g., 1 DOSE TOP DAILY PRN for BACK PAIN Ondansetron (Ondansetron Odt) 4 Mg Tab.rapdis, 4 MG PO Q6H PRN for NAUSEA OR VOMITING Oxycodone HCl/Acetaminophen (Oxycodone-Acetaminophen 5-325) 1 Each Tablet, 1 TAB PO BID PRN for PAIN Polyethylene Glycol 3350 (Miralax) 119 Gm Powder, 17 GM PO DAILY PRN for CONSTIPATION Promethazine HCl (Promethazine HCl) 25 Mg Tablet, 25 MG PO Q6H PRN for NAUSEA OR VOMITING Propylene Glycol/Peg 400 (Systane 0.3-0.4% Eye Drops) 15 Ml Sade, 1 DROP OU QID PRN for DRY EYES Sodium Chloride ([place]) 0.65 % Spr, 2 SPRAY NA QID PRN for NASAL DRYNESS Tizanidine HCl (Tizanidine HCl) 4 Mg Tablet, 4 MG PO TID PRN for MUSCLE SPASMS Trazodone HCl (Trazodone HCl) 50 Mg Tablet, 50 MG PO QHS PRN for SLEEP Miscellaneous Medications [Patient Comment] UNABLE TO VERIFY MEDICATIONS WITH PATIENT - MED LIST OBTAINED FROM PHARMACY AND DISCHARGE PAPERWORK FROM [facility] Allergies Coded Allergies: TAPE (Verified Allergy, Mild, PLASTIC TAPE- RASH, 07/06/19) BANDAIDS -RASH prednisone (Verified Adverse Reaction, Intermediate, EXTREME ELEVATED BLOOD SUGAR, 07/06/19) Gluten Flour (Verified Adverse Reaction, Mild, diarrhea, 07/06/19) gluten (Verified Adverse Reaction, Mild, DIARRHEA, 07/06/19) GME ATTESTATION GME ATTESTATION My faculty preceptor for this patient was fully available. All aspects of the patient interview, examination, medical decision making process, and medical care plan development were reviewed and approved by the faculty preceptor. The faculty preceptor is aware and concurs with the plan as stated in the body of this note and will attest to such by his/her cosignature. ATTENDING NOTE I agree with HPI, PMH, PSurgHx, PSocial Hx, FamilyHx and Plan above. PHYSICAL EXAMINATION: CONSTITUTIONAL: appears uncomfortable, nauseous, AAO x 3 EYES: PERRLA, EOM intact HENT, MOUTH: Normocephalic, atraumatic, moist mucous membranes, NECK: SUPPLE, no JVD, no lymphadenopathy, no carotid bruit CV: tachycardic, regular rhythm, S1S2 normal, no murmurs/rubs/gallops RESPIRATORY: Clear to auscultation bilaterally, no rales/rhonchi/wheezes GI: BS positive in 4 quadrants, soft, nontender, nondistended, no rebound or guarding, no organomegaly : Deferred MUSCULOSKELETAL: Normal ROM. No cyanosis, clubbing, swelling, joint deformity, extremity edema INTEGUMENTARY: Intact, no rashes, no lesions, no erythema NEUROLOGIC: Cranial Nerves II-XII are intact, no focal deficits ASSESSMENT: 53 y/o F admitted with diabetic ketoacidosis. DIAGNOSES: 1. Diabetic ketoacidosis 2. Diabetes Mellitus Type 1 with gastroparesis. 3. JERAD 4. HTN 5. GERD s/p Gretchen Fundoplication 6. Celiac Disease 7. Hyperlipidemia 8. Asthma 9. Hx of TIA LISSA LOWRY D.O. July 06, 2019 05:36 Dasha Paige MD July 06, 2019 10:35
--- NOTE | 2019-07-06 08:09 | ECGEPIP ---
[facility] - ED Test Date: 2019-07-06 Pat Name: ANA SCHWAB Department: Room: - Gender: Female Hone Operator: SAMI : 1965 Requested By: DEEDEE Olvera Order Number: [id number] Reading MD: Pete Mahmood Measurements Intervals [place] Rate: 115 P: 62 AR: 120 QRS: 63 QRSD: 81 T: 66 QT: 333 QTc: 461 Interpretive Statements SINUS TACHYCARDIA Electronically Signed on 07-06-2019 8:09:34 EDT by Pete Mahmood
[2019-07-06] MEDS: INSULIN IV RATE CHANGE DOCUMENTATION ML/HR XX SCH ×10 (08:24→17:09)
[2019-07-06 08:59] LABS: BLOOD UREA NITROGEN 15 MG/DL (7-18); CALCIUM LEVEL 8.6 MG/DL (8.5-10.1); CARBON DIOXIDE LEVEL 16 MEQ/L (21-32); CHLORIDE LEVEL 116 MEQ/L (98-107); GLOMERULAR FILTRATION RATE > 60.0 (>51); GLUCOSE, FASTING 152 MG/DL (70-100); POTASSIUM SERUM 4.3 MEQ/L (3.5-5.1); SODIUM LEVEL 144 MEQ/L (136-145)
[2019-07-06] MEDS ORDERED: IBUPROFEN 400 MG TAB PO PRN (09:00)
[2019-07-06] MEDS ORDERED: ONDANSETRON 4MG/2ML VIAL IV PRN (09:00)
[2019-07-06] MEDS: HEPARIN SOD (PORCINE) 5000UNITS/ML VIAL (J1644 PER 1000UNITS) SC SCH ×3 (09:06→20:30)
[2019-07-06] MEDS: METOCLOPRAMIDE INJ 10MG/2ML VIAL (J2765 PER 1) IV SCH ×3 (09:14→20:29)
[2019-07-06] MEDS: D5W/0.45% SODIUM CHLORIDE 1,000 ML IV SCH ×3 (09:14→17:09)
[2019-07-06 13:10] LABS: CALCIUM LEVEL 8.2 MG/DL (8.5-10.1); CREATININE FOR GFR 1.06 MG/DL (0.55-1.30); GLOMERULAR FILTRATION RATE 57.3 (>51); MAGNESIUM LEVEL 1.9 MG/DL (1.8-2.4); PHOSPHORUS LEVEL 2.9 MG/DL (2.5-4.9); POTASSIUM SERUM 4.6 MEQ/L (3.5-5.1)
[2019-07-06 17:24] LABS: MAGNESIUM LEVEL 1.9 MG/DL (1.8-2.4); PHOSPHORUS LEVEL 3.1 MG/DL (2.5-4.9)
[2019-07-06 17:30] LABS: BLOOD UREA NITROGEN 13 MG/DL (7-18); CALCIUM LEVEL 8.3 MG/DL (8.5-10.1); CARBON DIOXIDE LEVEL 21 MEQ/L (21-32); CHLORIDE LEVEL 113 MEQ/L (98-107); CREATININE FOR GFR 0.85 MG/DL (0.55-1.30); GLOMERULAR FILTRATION RATE > 60.0 (>51); GLUCOSE, FASTING 127 MG/DL (70-100); POTASSIUM SERUM 3.6 MEQ/L (3.5-5.1); SODIUM LEVEL 141 MEQ/L (136-145)
[2019-07-06] MEDS ORDERED: LEVEMIR (INSULIN DETEMIR) 1 UNITS/0.01ML SC ONE (18:00)
[2019-07-06] MEDS: POTASSIUM CHLORIDE 10 MEQ SR TABLET PO ONE ×2 (18:06→18:24)
[2019-07-06] MEDS ORDERED: POTASSIUM CHLORIDE 10% LIQ 20 MEQ/15 ML UDC PO ONE (18:30)
[2019-07-06] MEDS ORDERED: POTASSIUM CHLORIDE 10 MEQ SR TABLET PO ONE ×3 (19:00→19:30)
[2019-07-06] MEDS ORDERED: GLUCOSE 4GM CHEW TABLET PO PRN (19:30)
[2019-07-06] MEDS ORDERED: GLUCAGON INJ 1MG VIAL SC PRN (19:30)
[2019-07-06] MEDS: HumaLOG INSULIN (NovoLOG) PER UNIT SC SCH (20:13)
[2019-07-06] MEDS: ACETAMINOPHEN TAB 650MG DOSE (2X325MG) PO PRN (20:30)
[2019-07-07] VITALS: BP 135/66
[2019-07-07] MEDS: DEXTROSE 50% 50 ML SYRINGE IV PRN ×2 (00:37→05:23)
[2019-07-07] MEDS: METOCLOPRAMIDE INJ 10MG/2ML VIAL (J2765 PER 1) IV SCH ×4 (03:00→20:20)
[2019-07-07 04:02] VITALS: BP 142/66
[2019-07-07 04:54] LABS: HEMATOCRIT 32.2 % (36.0-47.0); MEAN CORPUSCULAR HEMOGLOBIN 31.2 pg (27.0-33.0); MEAN CORPUSCULAR HGB CONC 33.2 g/dl (32.0-36.5); MEAN CORPUSCULAR VOLUME 93.9 fl (80.0-96.0); PLATELET COUNT, AUTOMATED 333 10^3/uL (150-450); RED BLOOD COUNT 3.43 10^6/uL (4.00-5.40); WHITE BLOOD COUNT 10.5 10^3/uL (4.0-10.0)
[2019-07-07 05:05] LABS: HEMOGLOBIN 10.7 g/dl (12.0-15.5)
[2019-07-07 05:19] LABS: BLOOD UREA NITROGEN 10 MG/DL (7-18); CALCIUM LEVEL 8.2 MG/DL (8.5-10.1); CARBON DIOXIDE LEVEL 20 MEQ/L (21-32); CHLORIDE LEVEL 114 MEQ/L (98-107); CREATININE FOR GFR 0.65 MG/DL (0.55-1.30); GLOMERULAR FILTRATION RATE > 60.0 (>51); GLUCOSE, FASTING 38 MG/DL (70-100); MAGNESIUM LEVEL 1.8 MG/DL (1.8-2.4); PHOSPHORUS LEVEL 3.8 MG/DL (2.5-4.9); POTASSIUM SERUM 3.7 MEQ/L (3.5-5.1); SODIUM LEVEL 142 MEQ/L (136-145)
[2019-07-07] MEDS: HEPARIN SOD (PORCINE) 5000UNITS/ML VIAL (J1644 PER 1000UNITS) SC SCH ×3 (05:23→21:08)
[2019-07-07] MEDS ORDERED: D5W/0.45% SODIUM CHLORIDE 1,000 ML IV SCH (05:30)
[2019-07-07] MEDS ORDERED: PANTOPRAZOLE 40MG VIAL (C9113 PER 1) IV SCH (06:00)
[2019-07-07] MEDS: HumaLOG INSULIN (NovoLOG) PER UNIT SC SCH ×4 (06:57→21:00)
[2019-07-07 07:36] VITALS: BP 147/73
[2019-07-07] MEDS ORDERED: D5W/0.9% SODIUM CHLORIDE 1,000 ML IV ONE (08:30)
[2019-07-07] MEDS ORDERED: ONDANSETRON 4MG/2ML VIAL IV ONE (08:45)
[2019-07-07 09:32] LABS: BLOOD UREA NITROGEN 9 MG/DL (7-18); CARBON DIOXIDE LEVEL 19 MEQ/L (21-32); CHLORIDE LEVEL 111 MEQ/L (98-107); CREATININE FOR GFR 0.79 MG/DL (0.55-1.30); GLOMERULAR FILTRATION RATE > 60.0 (>51); GLUCOSE, FASTING 158 MG/DL (70-100); POTASSIUM SERUM 3.5 MEQ/L (3.5-5.1); SODIUM LEVEL 140 MEQ/L (136-145)
[2019-07-07 10:00] VITALS: BP 132/69
[2019-07-07] MEDS ORDERED: BISACODYL 5 MG TAB PO PRN (11:00)
[2019-07-07] MEDS ORDERED: MOM 30ML SUSPENSION UDC PO PRN (11:00)
[2019-07-07] MEDS ORDERED: MIRALAX *UNIT DOSE* 17GM PACKET PO PRN (11:00)
[2019-07-07 13:26] LABS: BLOOD UREA NITROGEN 8 MG/DL (7-18); CALCIUM LEVEL 7.8 MG/DL (8.5-10.1); CARBON DIOXIDE LEVEL 19 MEQ/L (21-32); CHLORIDE LEVEL 111 MEQ/L (98-107); CREATININE FOR GFR 0.69 MG/DL (0.55-1.30); GLOMERULAR FILTRATION RATE > 60.0 (>51); GLUCOSE, FASTING 304 MG/DL (70-100); SODIUM LEVEL 136 MEQ/L (136-145)
[2019-07-07] MEDS ORDERED: PERCOCET 5MG/325MG TAB PO PRN (13:45)
[2019-07-07] MEDS ORDERED: LIDOCAINE 5% OINT 30 GM TOP PRN (13:45)
[2019-07-07] MEDS ORDERED: tiZANidine 4 MG TAB PO PRN (13:45)
[2019-07-07] MEDS ORDERED: DOCUSATE SODIUM 100 MG CAP PO PRN (13:45)
[2019-07-07] MEDS ORDERED: traZODone 50 MG TAB PO PRN (13:45)
[2019-07-07 14:00] VITALS: BP 134/74
[2019-07-07] MEDS: FERROUS SULFATE 325MG TAB PO SCH (14:22)
[2019-07-07] MEDS: VITAMIN D 1,000 INTERNATIONAL UNITS TABLET PO SCH (14:22)
[2019-07-07] MEDS: SENOKOT S TAB PO PRN (14:22)
[2019-07-07] MEDS: ATORVASTATIN 20 MG TAB PO SCH (14:22)
[2019-07-07] MEDS: MULTIVITAMINS/MINERALS THERAP 1 TAB PO SCH (14:22)
[2019-07-07] MEDS: clonazePAM 1 MG TAB PO SCH ×2 (16:05→20:20)
[2019-07-07 17:18] LABS: BLOOD UREA NITROGEN 7 MG/DL (7-18); CARBON DIOXIDE LEVEL 19 MEQ/L (21-32); CHLORIDE LEVEL 113 MEQ/L (98-107); CREATININE FOR GFR 0.93 MG/DL (0.55-1.30); GLOMERULAR FILTRATION RATE > 60.0 (>51); GLUCOSE, FASTING 162 MG/DL (70-100); POTASSIUM SERUM 3.9 MEQ/L (3.5-5.1); SODIUM LEVEL 142 MEQ/L (136-145)
[2019-07-07] MEDS: ACETAMINOPHEN TAB 650MG DOSE (2X325MG) PO PRN (17:50)
[2019-07-07 20:17] LABS: BLOOD UREA NITROGEN 8 MG/DL (7-18); CALCIUM LEVEL 7.9 MG/DL (8.5-10.1); CARBON DIOXIDE LEVEL 19 MEQ/L (21-32); CHLORIDE LEVEL 111 MEQ/L (98-107); CREATININE FOR GFR 0.98 MG/DL (0.55-1.30); GLOMERULAR FILTRATION RATE > 60.0 (>51); GLUCOSE, FASTING 224 MG/DL (70-100); POTASSIUM SERUM 3.6 MEQ/L (3.5-5.1); SODIUM LEVEL 138 MEQ/L (136-145)
[2019-07-07] MEDS: PREGABALIN 75 MG CAP(LYRICA) PO SCH (20:19)
[2019-07-07] MEDS: methocarbamoL 500 MG TAB PO SCH (20:19)
[2019-07-07] MEDS: VARENICLINE 1 MG TABLET PO SCH (20:20)
[2019-07-07] MEDS: PANTOPRAZOLE 40MG TAB (PROTONIX) PO SCH (20:20)
[2019-07-07 22:00] VITALS: BP 132/71
[2019-07-08 01:30] LABS: BLOOD UREA NITROGEN 8 MG/DL (7-18); CARBON DIOXIDE LEVEL 22 MEQ/L (21-32); CHLORIDE LEVEL 108 MEQ/L (98-107); CREATININE FOR GFR 0.75 MG/DL (0.55-1.30); GLOMERULAR FILTRATION RATE > 60.0 (>51); GLUCOSE, FASTING 423 MG/DL (70-100); POTASSIUM SERUM 4.1 MEQ/L (3.5-5.1); SODIUM LEVEL 135 MEQ/L (136-145)
[2019-07-08] MEDS ORDERED: HumaLOG INSULIN (NovoLOG) PER UNIT SC ONE (02:00)
[2019-07-08] MEDS: METOCLOPRAMIDE INJ 10MG/2ML VIAL (J2765 PER 1) IV SCH ×2 (02:13→08:09)
[2019-07-08] MEDS: HEPARIN SOD (PORCINE) 5000UNITS/ML VIAL (J1644 PER 1000UNITS) SC SCH (05:54)
[2019-07-08 06:00] VITALS: BP 128/69
--- NOTE | 2019-07-08 06:29 | IPN ---
DATE OF SERVICE: 07/07/2019 The patient seen and examined at the bedside. The chart has been reviewed. She has had decrease in appetite and only eating about 10-15% of her food. The patient has been hyperglycemic overnight, but denied any palpitations, tremors or diaphoresis. Midnight glucose was 27, this morning was 101 at 5:55 a.m. The patient currently has no new complaints. Denies dysuria, urgency, frequency, fever, chills or flank pain. Denies any diarrhea. No other issues per nursing overnight. She did have a T-max of 100.8 yesterday at 10:00 p.m. Respiratory panel, blood cultures, chest x-ray and urinalysis (UA) are all negative. Vitals: Temperature 99, T-max 100.8, pulse 87, respiratory rate 18, blood pressure 147/73, 99% on room air. Generally, the patient is awake, alert and oriented to person, place and time, answering questions appropriately. No respiratory distress, jugular venous distention (JVD) or thyromegaly. Moist mucous membranes. The patient has no ulcers in the mouth. No skin rashes. Joints with full range of motion with no swelling. Heart: S1, S2. Sinus rhythm. No murmurs, rubs or gallops. Abdomen is soft, nontender, nondistended. Positive bowel sounds. Extremities: No cyanosis, clubbing or any pitting edema. Laboratory data and microbiology have all been refused. ASSESSMENT AND PLAN: 53-year-old female with history of type 1 diabetes, gastroparesis, obstructive sleep apnea, hypertension, reflux with Gretchen fundoplication, celiac disease, hyperlipidemia, asthma, transient ischemic attack, hiatal hernia, and upper GI bleed secondary to gastritis admitted for diabetic ketoacidosis with vomiting and weakness. The patient has closed her anion gap and had been given Levemir insulin, but with persistent hypoglycemia throughout the evening requiring persistent support. The patient's bicarbonate level has remained at 20 to 21 with closed anion gap. Will continue to monitor with every four hours BMP until stable for 12 hours. She may be resumed on a consistent carbohydrate diet and insulin sliding scale. The patient is medically stable to be transferred to medical surgical floor.
[2019-07-08 06:48] LABS: HEMATOCRIT 34.8 % (36.0-47.0); HEMOGLOBIN 11.4 g/dl (12.0-15.5); MEAN CORPUSCULAR HEMOGLOBIN 31.2 pg (27.0-33.0); MEAN CORPUSCULAR HGB CONC 32.8 g/dl (32.0-36.5); MEAN CORPUSCULAR VOLUME 95.3 fl (80.0-96.0); PLATELET COUNT, AUTOMATED 248 10^3/uL (150-450); RED BLOOD COUNT 3.65 10^6/uL (4.00-5.40); WHITE BLOOD COUNT 5.6 10^3/uL (4.0-10.0)
[2019-07-08 07:21] LABS: BLOOD UREA NITROGEN 7 MG/DL (7-18); CALCIUM LEVEL 8.4 MG/DL (8.5-10.1); CARBON DIOXIDE LEVEL 21 MEQ/L (21-32); CHLORIDE LEVEL 108 MEQ/L (98-107); CREATININE FOR GFR 0.73 MG/DL (0.55-1.30); GLOMERULAR FILTRATION RATE > 60.0 (>51); GLUCOSE, FASTING 328 MG/DL (70-100); POTASSIUM SERUM 4.3 MEQ/L (3.5-5.1); SODIUM LEVEL 138 MEQ/L (136-145)
[2019-07-08] MEDS: HumaLOG INSULIN (NovoLOG) PER UNIT SC SCH ×2 (07:45→12:31)
[2019-07-08] MEDS: methocarbamoL 500 MG TAB PO SCH (08:09)
[2019-07-08] MEDS: VITAMIN D 1,000 INTERNATIONAL UNITS TABLET PO SCH (08:09)
[2019-07-08] MEDS: SENOKOT S TAB PO PRN (08:10)
[2019-07-08] MEDS: clonazePAM 1 MG TAB PO SCH (08:10)
[2019-07-08] MEDS: VARENICLINE 1 MG TABLET PO SCH (08:10)
[2019-07-08] MEDS: ATORVASTATIN 20 MG TAB PO SCH (08:10)
[2019-07-08] MEDS: PANTOPRAZOLE 40MG TAB (PROTONIX) PO SCH (08:10)
[2019-07-08] MEDS: PREGABALIN 75 MG CAP(LYRICA) PO SCH (08:10)
[2019-07-08] MEDS: MULTIVITAMINS/MINERALS THERAP 1 TAB PO SCH (08:10)
[2019-07-08] MEDS: FERROUS SULFATE 325MG TAB PO SCH (08:10)
[2019-07-08] MEDS ORDERED: SODIUM CHLORIDE NASAL 0.65% SPRAY BTL (OCEAN) PRN (08:30)
[2019-07-08] MEDS ORDERED: LACTIC ACID 12% LOTION 225 GM BTL TOP PRN (08:30)
[2019-07-08] MEDS ORDERED: ALBUTEROL 90 MCG/ACT 8GM HFA INHALER INH PRN (08:30)
[2019-07-08] MEDS ORDERED: POLYVINYL ALCOHOL OPHTH SOLN 15 ML(LIQUITEARS) OU PRN (08:30)
[2019-07-08] MEDS ORDERED: LEVEMIR (INSULIN DETEMIR) 1 UNITS/0.01ML SC ONE (08:45)
[2019-07-08] MEDS ORDERED: ASPIRIN 81 MG ENTERIC TAB PO SCH (09:00)
== END 2019-07-08 14:01 | disposition home or self-care (01) | DRG 639 ==
LOC: M ED 02:01 → M ED INP 04:52 → ENRESERV 05:09 → M ICU 08:34 → M MSPAV 07-07 10:30
PROVIDERS: ADMIT Internal Medicine; ATTEND General Practice
DX: E10.10 Type 1 diabetes mellitus with ketoacidosis without coma (principal); E10.43 Type 1 diabetes mellitus with diabetic autonomic (poly)neuropathy; K31.84 Gastroparesis; E10.649 Type 1 diabetes mellitus with hypoglycemia without coma; K90.0 Celiac disease; G47.33 Obstructive sleep apnea (adult) (pediatric); E78.5 Hyperlipidemia, unspecified; J45.909 Unspecified asthma, uncomplicated; K21.9 Gastro-esophageal reflux disease without esophagitis; Z86.73 Personal history of transient ischemic attack (TIA), and cerebral infarction without residual deficits; I10 Essential (primary) hypertension; Z90.49 Acquired absence of other specified parts of digestive tract; Z79.82 Long term (current) use of aspirin; Z79.899 Other long term (current) drug therapy; Z79.4 Long term (current) use of insulin; Z88.8 Allergy status to other drugs, medicaments and biological substances

== ENCOUNTER 2019-07-14 04:36 | Inpatient (IN) | payer OTHER, MEDICAID ==
[~2019-07-14] VITALS: Ht 162.6 cm; Wt 59.8 kg
[2019-07-14 05:56] LABS: VENOUS BASE EXCESS -18.6 (-2.0-2.0); VENOUS HCO3 7.9 MEQ/L (23.0-27.0); VENOUS O2 SATURATION 91.4 % (60.0-80.0); VENOUS PARTIAL PRESSURE CO2 21.8 mmHg (38.0-50.0); VENOUS PARTIAL PRESSURE O2 63.1 mmHg (30.0-50.0); VENOUS PH 7.176 UNITS (7.330-7.430); VENOUS STANDARD HCO3 10.8 MEQ/L; VENOUS TOTAL CO2 8.6 MEQ/L (24.0-28.0)
[2019-07-14 05:58] LABS: BASO # 0.1 10^3/uL (0.0-0.2); BASO % 1.6 % (0.0-1.0); EOS # 0.1 10^3/uL (0.0-0.5); EOS % 0.7 % (0.0-3.0); HEMATOCRIT 41.3 % (36.0-47.0); HEMOGLOBIN 13.1 g/dl (12.0-15.5); LYMPH # 0.5 10^3/uL (1.5-5.0); LYMPH % 6.2 % (24.0-44.0); MEAN CORPUSCULAR HEMOGLOBIN 31.3 pg (27.0-33.0); MEAN CORPUSCULAR HGB CONC 31.7 g/dl (32.0-36.5); MEAN CORPUSCULAR VOLUME 98.6 fl (80.0-96.0); MONO # 0.5 10^3/uL (0.0-0.8); MONO % 5.3 % (0.0-5.0); NEUTROPHILS # 7.4 10^3/uL (1.5-8.5); NEUTROPHILS % 85.2 % (36.0-66.0); PLATELET COUNT, AUTOMATED 369 10^3/uL (150-450); RED BLOOD COUNT 4.19 10^6/uL (4.00-5.40); WHITE BLOOD COUNT 8.7 10^3/uL (4.0-10.0)
[2019-07-14 06:51] LABS: HEMOGLOBIN A1c 9.3 %
[2019-07-14] MEDS ORDERED: NS 1,000 ML IV ONE (07:00)
[2019-07-14 07:36] LABS: OSMOLALITY SERUM 306 MOSM/KG (275-295)
[2019-07-14 07:39] LABS: ALBUMIN 3.1 GM/DL (3.2-5.2); ALT/SGPT 40 U/L (12-78); BILIRUBIN,DIRECT 0.1 MG/DL (0.0-0.2); BILIRUBIN,TOTAL 0.6 MG/DL (0.2-1.0); BLOOD UREA NITROGEN 18 MG/DL (7-18); CALCIUM LEVEL 8.7 MG/DL (8.5-10.1); CARBON DIOXIDE LEVEL 10 MEQ/L (21-32); CHLORIDE LEVEL 105 MEQ/L (98-107); CREATININE FOR GFR 1.05 MG/DL (0.55-1.30); GLOMERULAR FILTRATION RATE 57.9 (>51); GLUCOSE, FASTING 330 MG/DL (70-100); LIPASE 71 U/L (73-393); POTASSIUM SERUM 5.1 MEQ/L (3.5-5.1); SODIUM LEVEL 135 MEQ/L (136-145); TOTAL PROTEIN 6.6 GM/DL (6.4-8.2)
[2019-07-14 07:40] LABS: ACETONE/KETONE > 46.00 MG/DL (<2.81)
[2019-07-14] MEDS ORDERED: INSULIN REGULAR IN 0.9 % NACL 100 UNIT in IV 1 EA IV SCH ×4 (07:40→08:34)
[2019-07-14] MEDS ORDERED: INSULIN IV RATE CHANGE DOCUMENTATION ML/HR XX SCH (07:45)
[2019-07-14] MEDS ORDERED: ONDANSETRON 4MG/2ML VIAL IV ONE (08:00)
[2019-07-14] MEDS ORDERED: FLUO20CA22 PO (08:03)
[2019-07-14] MEDS ORDERED: SUCR1TAB56 PO (08:03)
--- NOTE | 2019-07-14 08:06 | REP ---
Clinical: Chest pain. Vomiting . Comparison: 07/06/2019 . Findings: The mediastinum and cardiac silhouette are stable and within normal limits for portable technique. The lung alanis are clear without acute consolidation, effusion, or pneumothorax. Skeletal structures are intact. Impression: No acute cardiopulmonary process appreciated. Electronically Signed by Shin Zarco MD 07/14/2019 07:57 A
[2019-07-14 08:18] LABS: MAGNESIUM LEVEL 2.2 MG/DL (1.8-2.4); PHOSPHORUS LEVEL 2.4 MG/DL (2.5-4.9)
[2019-07-14] MEDS ORDERED: ONDANSETRON 4MG/2ML VIAL IV PRN (08:45)
[2019-07-14] MEDS ORDERED: ACETAMINOPHEN TAB 650MG DOSE (2X325MG) PO PRN (08:45)
[2019-07-14] MEDS ORDERED: NS 1,000 ML IV SCH (08:45)
--- NOTE | 2019-07-14 08:54 | ECGEPIP ---
[facility] - ED Test Date: 2019-07-14 Pat Name: ANA SCHWAB Department: Room: - Gender: Female Project Management Analyst: : 1965 Requested By: DEEDEE Olvera Order Number: [id number] Reading MD: Akua Mccloud Measurements Intervals [place] Rate: 113 P: 63 AL: 132 QRS: 63 QRSD: 76 T: 63 QT: 319 QTc: 439 Interpretive Statements SINUS TACHYCARDIA ABNORMAL RHYTHM ECG LOW QRS VOLTAAGE LIMB LEADS NONSPECIFIC ST T WAVE CHANGES CW 07/06/[address] T WAVE CHANGES Electronically Signed on 07-14-2019 8:53:43 EDT by Akua Mccloud
[2019-07-14 08:56] LABS: CK-MB VALUE MASS 1.5 NG/ML (<3.6); CPK CREATINE PHOSPHOKINASE 56 U/L (26-192); MB/CK RELATIVE INDEX 2.68 (< OR =4); TROPONIN I < 0.02 NG/ML (< 0.10)
[2019-07-14] MEDS: INSULIN IV RATE CHANGE DOCUMENTATION ML/HR XX SCH ×12 (09:06→22:16)
[2019-07-14 09:37] LABS: VENOUS BASE EXCESS -21.7 (-2.0-2.0); VENOUS HCO3 7.3 MEQ/L (23.0-27.0); VENOUS O2 SATURATION 68.9 % (60.0-80.0); VENOUS PARTIAL PRESSURE CO2 26.8 mmHg (38.0-50.0); VENOUS PARTIAL PRESSURE O2 42.2 mmHg (30.0-50.0); VENOUS PH 7.056 UNITS (7.330-7.430); VENOUS STANDARD HCO3 8.6 MEQ/L; VENOUS TOTAL CO2 8.2 MEQ/L (24.0-28.0)
[2019-07-14 10:04] VITALS: BP 166/79
[2019-07-14 10:17] LABS: BLOOD UREA NITROGEN 15 MG/DL (7-18); CALCIUM LEVEL 8.2 MG/DL (8.5-10.1); CARBON DIOXIDE LEVEL 10 MEQ/L (21-32); CHLORIDE LEVEL 108 MEQ/L (98-107); CK-MB VALUE MASS 1.3 NG/ML (<3.6); CPK CREATINE PHOSPHOKINASE 52 U/L (26-192); GLOMERULAR FILTRATION RATE 54.9 (>51); GLUCOSE, FASTING 346 MG/DL (70-100); MAGNESIUM LEVEL 1.9 MG/DL (1.8-2.4); PHOSPHORUS LEVEL 3.8 MG/DL (2.5-4.9); POTASSIUM SERUM 4.7 MEQ/L (3.5-5.1); SODIUM LEVEL 138 MEQ/L (136-145); TROPONIN I < 0.02 NG/ML (< 0.10)
[2019-07-14] MEDS: PANTOPRAZOLE 40MG VIAL (C9113 PER 1) IV SCH ×2 (10:17→20:00)
[2019-07-14 10:41] LABS: ACETONE/KETONE > 46.00 MG/DL (<2.81)
[2019-07-14] MEDS: D5W/0.45% SODIUM CHLORIDE 1,000 ML IV SCH ×2 (11:06→17:47)
[2019-07-14] MEDS: METOCLOPRAMIDE INJ 10MG/2ML VIAL (J2765 PER 1) IV PRN ×3 (11:06→23:39)
[2019-07-14 12:00] VITALS: BP 135/63
[2019-07-14 13:07] LABS: VENOUS HCO3 12.4 MEQ/L (23.0-27.0); VENOUS O2 SATURATION 97.4 % (60.0-80.0); VENOUS PARTIAL PRESSURE CO2 24.9 mmHg (38.0-50.0); VENOUS PARTIAL PRESSURE O2 92.2 mmHg (30.0-50.0); VENOUS PH 7.315 UNITS (7.330-7.430); VENOUS STANDARD HCO3 15.1 MEQ/L; VENOUS TOTAL CO2 13.2 MEQ/L (24.0-28.0)
[2019-07-14 13:43] LABS: ACETONE/KETONE 44.58 MG/DL (<2.81); BLOOD UREA NITROGEN 14 MG/DL (7-18); CALCIUM LEVEL 8.3 MG/DL (8.5-10.1); CARBON DIOXIDE LEVEL 12 MEQ/L (21-32); CHLORIDE LEVEL 111 MEQ/L (98-107); CPK CREATINE PHOSPHOKINASE 56 U/L (26-192); CREATININE FOR GFR 0.94 MG/DL (0.55-1.30); GLOMERULAR FILTRATION RATE > 60.0 (>51); GLUCOSE, FASTING 141 MG/DL (70-100); MB/CK RELATIVE INDEX 1.79 (< OR =4); PHOSPHORUS LEVEL 2.2 MG/DL (2.5-4.9); POTASSIUM SERUM 4.7 MEQ/L (3.5-5.1); SODIUM LEVEL 138 MEQ/L (136-145); TROPONIN I < 0.02 NG/ML (< 0.10)
[2019-07-14] MEDS ORDERED: clonazePAM 1 MG TAB PO PRN (14:15)
[2019-07-14] MEDS ORDERED: DOCUSATE SODIUM 100 MG CAP PO PRN (14:15)
--- NOTE | 2019-07-14 14:30 | HPEPDOC ---
General Date of Admission Jul 14, 2019 at 08:34 Date of Service: Jul 14, 2019 Chief Complaint The patient is a 53-year-old female who presented to the hospital with complaints of nausea and vomiting History of Present Illness Patient is a 53-year-old female with a PMHx of IDDM1, Gastroparesis, HTN, DLP, JERAD, Ashtma, Hx of TIA, GERD s/p Gretchen Fundoplication / Celiac disease / Hx of Gastritis and bleed (2014), who presented to the hospital with complaints of nausea and vomiting started yesterday evening. Patient has reported that shes experienced greater than 10 episodes of nausea and vomiting. No evidence of blood. She denies any chest pain, shortness of breath or palpitations. Denies any associated abdominal pain, fevers or chills. She is not experiencing any constipation, diarrhea or urinary discomfort. She does report that she is compliant with her insulin. Patient reports her appetite is poor and has had some weight loss. Upon arrival to emergency room, patient had lab work done that has shown evidence of elevated anion gap, suppressed bicarbonate and elevated beta hydroxybutyrate. Patient was admitted to hospitalist service for suspected DKA. Home Medications Scheduled Aspirin (Aspirin EC) 81 Mg Tabec, 81 MG PO DAILY, (Reported) Atorvastatin Calcium (Atorvastatin Calcium) 20 Mg Tablet, 20 MG PO DAILY, (Reported) Cholecalciferol (Vitamin D3) (Vitamin D3) 1,000 Unit Tablet, 1,000 UNITS PO DAILY, (Reported) Clonazepam (Clonazepam) 1 Mg Tablet, 1 MG PO TID, (Reported) Dulaglutide (Trulicity) 1.5 Mg/0.5 Ml Inj, 1.5 MG SC QWEEK, (Reported) TAKES ON WEDNESDAYS Ferrous Sulfate (Ferrous Sulfate) 325 Mg Tab, 325 MG PO DAILY, (Reported) Fluoxetine Hcl (Fluoxetine HCl) 20 Mg Capsule, 20 MG PO DAILY, (Reported) Insulin Aspart (Niacinamide) (Fiasp 100 Unit/ml Flextouch) 100 Unit/1 Ml Insuln. pen, 1 DOSE SC AC, (Reported) PER SLIDING SCALE Insulin Degludec (Tresiba Flextouch U-100) 100 Unit/1 Ml Insuln.pen, 20 UNIT SC DAILY, (Reported) Methocarbamol (Methocarbamol) 500 Mg Tablet, 500 MG PO BID, (Reported) Multivitamins (Thera M Plus Tablet) 1 Tab Tab, 1 TAB PO DAILY, (Reported) Pantoprazole Sodium (Pantoprazole Sodium) 40 Mg Tablet.dr, 40 MG PO BID, (Reported) Pregabalin (Pregabalin) 75 Mg Capsule, 75 MG PO BID, (Reported) Sucralfate (Sucralfate) 1 Gm Tablet, 1 GM PO ACHS, (Reported) Varenicline (Chantix) 1 Mg Tablet, 1 MG PO BID, (Reported) Scheduled PRN Albuterol Sulfate (Ventolin Hfa) 108 Mcg/Act Aer, 2 PUFFS INH Q4H PRN for SHORTNESS OF BREATH, (Reported) Ammonium Lactate (Ammonium Lactate) 12 % Cre, 1 DOSE TOP DAILY PRN for PAIN, (Reported) APPLY TO FEET Docusate Sodium (Colace) 100 Mg Cap, 100 MG PO BID PRN for CONSTIPATION, (Reported) Glucagon,Human Recombinant (Glucagon Emergency Kit) 1 Mg Kit, 1 MG IM ASDIRECTED PRN for LOW BLOOD SUGAR, (Reported) Lidocaine (Lidocaine) 120 Gm Oint...g., 1 DOSE TOP DAILY PRN for BACK PAIN, (Reported) Ondansetron (Ondansetron Odt) 4 Mg Tab.rapdis, 4 MG PO Q6H PRN for NAUSEA OR VOMITING, (Reported) Oxycodone HCl/Acetaminophen (Oxycodone-Acetaminophen 5-325) 1 Each Tablet, 1 TAB PO BID PRN for PAIN, (Reported) Polyethylene Glycol 3350 (Miralax) 119 Gm Powder, 17 GM PO DAILY PRN for CONSTIPATION, (Reported) Promethazine HCl (Promethazine HCl) 25 Mg Tablet, 25 MG PO Q6H PRN for NAUSEA OR VOMITING, (Reported) Propylene Glycol/Peg 400 (Systane 0.3-0.4% Eye Drops) 15 Ml Sade, 1 DROP OU QID PRN for DRY EYES, (Reported) Sodium Chloride ([place]) 0.65 % Spr, 2 SPRAY NA QID PRN for NASAL DRYNESS, (Reported) Tizanidine HCl (Tizanidine HCl) 4 Mg Tablet, 4 MG PO TID PRN for MUSCLE SPASMS, (Reported) Trazodone HCl (Trazodone HCl) 50 Mg Tablet, 50 MG PO QHS PRN for SLEEP, (Reported) Miscellaneous Medications [Patient Comment] , (Reported) PATIENT UNABLE TO VERIFY MEDICATIONS AT THIS TIME - MED LIST VERIFIED WITH Paul BURCIAGA. Allergies Coded Allergies: TAPE (Verified Allergy, Mild, PLASTIC TAPE- RASH, 07/06/19) BANDAIDS -RASH prednisone (Verified Adverse Reaction, Intermediate, EXTREME ELEVATED BLOOD SUGAR, 07/06/19) Gluten Flour (Verified Adverse Reaction, Mild, diarrhea, 07/06/19) gluten (Verified Adverse Reaction, Mild, DIARRHEA, 07/06/19) Past Medical History Medical History IDDM1, Gastroparesis, HTN, DLP, JERAD, Ashtma, Hx of TIA, GERD s/p Gretchen Fundoplication / Celiac disease / Hx of Gastritis and bleed (2014) Surgical History Gretchen Fundoplication Gastric sleeve 2013 Colonoscopy and EGD ERCP with papillotomy and balloon sweep 06/10/2018 Cholecystectomy Appendectomy section Hysterectomy Family History - Patient reports her mother has a history of heart disease and of heart attack Social History - Denies the use of alcohol or illicit drugs; patient reports that she quit smoking - Denies recent travel or sick contacts - Lives with boyfriend - 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; 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 Review of Systems Other systems 10 point review of systems complete, all negative otherwise stated in HPI Vital Signs - Vitals: BP 166/77, HR 116, RR 18, Sat 99%RA, Temp 99.6F - General: Lying in bed, appears uncomfortable, AAOx3 - HEENT: NC, AT, PERRLA, EOMI - CVS: Tachycardic, +S1S2 - Lungs: Fair air entry bilaterally, No appreciable wheezing / rales / rhonchi - Abdomen: Soft, Non-distended, Non-tender - Extremities: No lower extremity edema, No calf tenderness - Neuro: No focal motor or sensory deficit - Skin: No visible rashes Laboratory Data Labs 24H Laboratory Tests 2 07/14/19 04:46: Bedside Glucose (Misc Panel) 508*H 07/14/19 04:48: Immature Granulocyte % (Auto) 1.0, Neutrophils (%) (Auto) 85.2H, Lymphocytes (%) (Auto) 6.2L, Monocytes (%) (Auto) 5.3H, Eosinophils (%) (Auto) 0.7, Basophils (%) (Auto) 1.6H, Neutrophils # (Auto) 7.4, Lymphocytes # (Auto) 0.5L, Monocytes # (Auto) 0.5, Eosinophils # (Auto) 0.1, Basophils # (Auto) 0.1, Nucleated Red Blood Cells % (auto) 0.0, Blood Gas Bicarbonate Standard 10.8, Venous Blood pH 7.176L, Venous Blood Partial Pressure CO2 21.8L, Venous Blood Partial Pressure O2 63.1H, Venous Blood Total Carbon Dioxide 8.6L, Venous Blood HCO3 7.9L, Venous Blood Oxygen Saturation 91.4H, Venous Blood Base Excess -18.6L, Estimated Mean Plasma Glucose 220H, Hemoglobin A1c 9.3 07/14/19 05:06: Bedside Glucose (Misc Panel) 424H 07/14/19 06:28: Bedside Glucose (Misc Panel) 311H 07/14/19 06:49: Anion Gap 20H, Glomerular Filtration Rate 57.9, Osmolality 306H, Calcium Level 8.7, Phosphorus Level 2.4L, Magnesium Level 2.2, Total Bilirubin 0.6, Direct Bilirubin 0.1, Aspartate Amino Transf (AST/SGOT) 18, Alanine Aminotransferase (ALT/SGPT) 40, Alkaline Phosphatase 106, Total Creatine Kinase 56, Creatine Kinase MB 1.5, Creatine Kinase MB Relative Index 2.68, Troponin I < 0.02, Total Protein 6.6, Albumin 3.1L, Albumin/Globulin Ratio 0.9L, Lipase 71L, B- Hydroxybutyrate > 46.00H 07/14/19 08:06: Bedside Glucose (Misc Panel) 403H 07/14/19 09:05: Bedside Glucose (Misc Panel) 390H 07/14/19 09:22: Anion Gap 20H, Glomerular Filtration Rate 54.9, Calcium Level 8.2L, Phosphorus Level 3.8#, Magnesium Level 1.9, Total Creatine Kinase 52, Creatine Kinase MB 1.3, Creatine Kinase MB Relative Index 2.50, Troponin I < 0.02, B-Hydroxyb utyrate > 46.00H, Blood Gas Bicarbonate Standard 8.6, Venous Blood pH 7.056L, Venous Blood Partial Pressure CO2 26.8L, Venous Blood Partial Pressure O2 42.2, Venous Blood Total Carbon Dioxide 8.2L, Venous Blood HCO3 7.3L, Venous Blood Oxygen Saturation 68.9, Venous Blood Base Excess -21.7L, Lactic Acid Level 2.0 07/14/19 09:55: Bedside Glucose (Misc Panel) 277H 07/14/19 10:56: Bedside Glucose (Misc Panel) 142H 07/14/19 11:31: Urine Color STRAW, Urine Appearance CLEAR, Urine pH 5.0, Urine Specific [place] 1.020, Urine Protein 1+H, Urine Glucose (UA) 3+H, Urine Ketones 2+H, Urine Blood NEGATIVE, Urine Nitrite NEGATIVE, Urine Bilirubin NEGATIVE, Urine Urobilinogen 0.2, Urine Leukocyte Esterase NEGATIVE, Urine WBC (Auto) 0, Urine RBC (Auto) 0, Urine Hyaline Casts (Auto) 0, Urine Bacteria (Auto) 1+H, Urine Squamous Epithelial Cells 0, Urine Sperm (Auto) 07/14/19 11:57: Bedside Glucose (Misc Panel) 154H 07/14/19 12:57: Bedside Glucose (Misc Panel) 126H, Blood Gas Bicarbonate Standard 15.1, Venous Blood pH 7.315L, Venous Blood Partial Pressure CO2 24.9L, Venous Blood Partial Pressure O2 92.2H, Venous Blood Total Carbon Dioxide 13.2L, Venous Blood HCO3 12.4L, Venous Blood Oxygen Saturation 97.4H, Venous Blood Base Excess -12.0L, Anion Gap 15, Glomerular Filtration Rate > 60.0, Calcium Level 8.3L, Phosphorus Level 2.2#L, Magnesium Level 2.0, Total Creatine Kinase 56, Creatine Kinase MB 1.0, Creatine Kinase MB Relative Index 1.79, Troponin I < 0.02, B- Hydroxybutyrate 44.58H 07/14/19 14:00: Bedside Glucose (Misc Panel) 130H CBC/BMP Laboratory Tests 07/14/19 04:48 07/14/19 06:49 07/14/19 09:22 07/14/19 12:57 Microbiology Microbiology 07/14/19 Blood Culture, Received Pending 07/14/19 Blood Culture, Received Pending Plan / VTE VTE Prophylaxis Ordered?: Yes Plan Plan Diabetic ketoacidosis - Patient presented to the hospital with complaints of nausea and vomiting - Etiology of DKA is still unclear; patient has reported compliance with medi cations - Patients review of systems negative for any source of infection - Check blood cultures, urine analysis and trend cardiac markers - EKG was reviewed without any ischemic changes noted - CXR was reviewed without any acute findings - Will admit patient to the ICU for insulin drip and repeat blood work every 4 hours - Patient will remain nothing by mouth Gastroparesis / Neuropathy - c/w symptomatic control with Zofran / Reglan - c/w Pregabalin HTN - BP better controlled - Currently not on any medications DLP - c/w Atorvastatin JERAD - May allow home CPAP use while inpatient Asthma - No evidence of exacerbation - c/w inhaled therapy as ordered Vitamin D deficiency - c/w Supplementation Hx of TIA - Will resume ASA and Atorvastatin Anxiety / Depression - c/w Clonazepam / Fluoxetine GERD s/p Gretchen Fundoplication / Celiac disease / Hx of Gastritis and bleed (2014) - Will start Protonix IV DVT prophylaxis - Will start Heparin AMY HOWELL MD Jul 14, 2019 14:30
[2019-07-14] MEDS: HEPARIN SOD (PORCINE) 5000UNITS/ML VIAL (J1644 PER 1000UNITS) SC SCH ×2 (15:06→21:08)
[2019-07-14 16:00] VITALS: BP 143/65
[2019-07-14] MEDS ORDERED: SODIUM PHOSPHATE INJ 20 MMOL in D5W 250 ML IV ONE (16:00)
[2019-07-14] MEDS ORDERED: SUCRALFATE 1 GM TAB PO SCH (17:30)
[2019-07-14 17:31] LABS: VENOUS BASE EXCESS -10.9 (-2.0-2.0); VENOUS HCO3 13.2 MEQ/L (23.0-27.0); VENOUS O2 SATURATION 97.6 % (60.0-80.0); VENOUS PARTIAL PRESSURE O2 93.3 mmHg (30.0-50.0); VENOUS PH 7.339 UNITS (7.330-7.430); VENOUS STANDARD HCO3 15.9 MEQ/L; VENOUS TOTAL CO2 13.9 MEQ/L (24.0-28.0)
[2019-07-14] MEDS: SUCRALFATE SUSP 1GM/10ML UD PO SCH ×2 (17:47→20:00)
[2019-07-14 18:10] LABS: ACETONE/KETONE 27.22 MG/DL (<2.81); CALCIUM LEVEL 7.8 MG/DL (8.5-10.1); CREATININE FOR GFR 1.02 MG/DL (0.55-1.30); GLOMERULAR FILTRATION RATE 59.9 (>51); MAGNESIUM LEVEL 1.8 MG/DL (1.8-2.4); PHOSPHORUS LEVEL 3.3 MG/DL (2.5-4.9); POTASSIUM SERUM 3.8 MEQ/L (3.5-5.1)
[2019-07-14] MEDS ORDERED: CALCIUM CARBONATE 500 MG CHEW U/D PO PRN (19:45)
[2019-07-14 20:00] VITALS: BP 145/72
[2019-07-14] MEDS: PREGABALIN 75 MG CAP(LYRICA) PO SCH (20:00)
[2019-07-14] MEDS ORDERED: HumaLOG INSULIN (NovoLOG) PER UNIT SC SCH (21:00)
[2019-07-14 21:20] LABS: VENOUS BASE EXCESS -7.4 (-2.0-2.0); VENOUS HCO3 15.9 MEQ/L (23.0-27.0); VENOUS O2 SATURATION 99.7 % (60.0-80.0); VENOUS PARTIAL PRESSURE CO2 26.2 mmHg (38.0-50.0); VENOUS PARTIAL PRESSURE O2 203.6 mmHg (30.0-50.0); VENOUS PH 7.401 UNITS (7.330-7.430); VENOUS STANDARD HCO3 18.5 MEQ/L; VENOUS TOTAL CO2 16.7 MEQ/L (24.0-28.0)
[2019-07-14 21:55] LABS: ACETONE/KETONE 19.36 MG/DL (<2.81); BLOOD UREA NITROGEN 10 MG/DL (7-18); CALCIUM LEVEL 8.1 MG/DL (8.5-10.1); CARBON DIOXIDE LEVEL 20 MEQ/L (21-32); CHLORIDE LEVEL 108 MEQ/L (98-107); GLOMERULAR FILTRATION RATE > 60.0 (>51); GLUCOSE, FASTING 134 MG/DL (70-100); MAGNESIUM LEVEL 1.7 MG/DL (1.8-2.4); PHOSPHORUS LEVEL 2.6 MG/DL (2.5-4.9); POTASSIUM SERUM 3.2 MEQ/L (3.5-5.1); SODIUM LEVEL 138 MEQ/L (136-145)
[2019-07-14] MEDS ORDERED: GLUCOSE 4GM CHEW TABLET PO PRN (23:00)
[2019-07-14] MEDS ORDERED: DEXTROSE 50% 50 ML SYRINGE IV PRN (23:00)
[2019-07-14] MEDS ORDERED: GLUCAGON INJ 1MG VIAL SC PRN (23:00)
[2019-07-14] MEDS ORDERED: LEVEMIR (INSULIN DETEMIR) 1 UNITS/0.01ML SC SCH (23:00)
[2019-07-14] MEDS: POTASSIUM CHLORIDE 10 MEQ SR TABLET PO ONE (23:28)
[2019-07-14] MEDS: MAGNESIUM OXIDE 400 MG TAB (MAG-OX) PO SCH (23:37)
[2019-07-14] MEDS: POTASSIUM CHLORIDE 10% LIQ 20 MEQ/15 ML UDC PO ONE (23:38)
[2019-07-15] VITALS: BP 143/71
[2019-07-15] MEDS: POTASSIUM CHLORIDE 10% LIQ 20 MEQ/15 ML UDC PO ONE (00:14)
[2019-07-15] MEDS: D5W/0.45% SODIUM CHLORIDE 1,000 ML IV SCH (00:16)
[2019-07-15] MEDS: POTASSIUM CHLORIDE 10 MEQ SR TABLET PO ONE (00:16)
[2019-07-15 01:11] LABS: VENOUS BASE EXCESS -10.6 (-2.0-2.0); VENOUS HCO3 13.6 MEQ/L (23.0-27.0); VENOUS O2 SATURATION 99.1 % (60.0-80.0); VENOUS PARTIAL PRESSURE CO2 25.6 mmHg (38.0-50.0); VENOUS PARTIAL PRESSURE O2 148.7 mmHg (30.0-50.0); VENOUS PH 7.342 UNITS (7.330-7.430); VENOUS TOTAL CO2 14.3 MEQ/L (24.0-28.0)
[2019-07-15 01:39] LABS: ACETONE/KETONE 32.71 MG/DL (<2.81); BLOOD UREA NITROGEN 9 MG/DL (7-18); CALCIUM LEVEL 7.9 MG/DL (8.5-10.1); CARBON DIOXIDE LEVEL 15 MEQ/L (21-32); CHLORIDE LEVEL 107 MEQ/L (98-107); CREATININE FOR GFR 0.76 MG/DL (0.55-1.30); GLOMERULAR FILTRATION RATE > 60.0 (>51); GLUCOSE, FASTING 253 MG/DL (70-100); MAGNESIUM LEVEL 1.6 MG/DL (1.8-2.4); PHOSPHORUS LEVEL 2.7 MG/DL (2.5-4.9); POTASSIUM SERUM 3.6 MEQ/L (3.5-5.1); SODIUM LEVEL 137 MEQ/L (136-145)
[2019-07-15] MEDS ORDERED: NS 1,000 ML IV SCH (02:30)
[2019-07-15 04:00] VITALS: BP 123/63
[2019-07-15 05:21] LABS: VENOUS BASE EXCESS -4.1 (-2.0-2.0); VENOUS O2 SATURATION 99.7 % (60.0-80.0); VENOUS PARTIAL PRESSURE O2 207.4 mmHg (30.0-50.0); VENOUS PH 7.435 UNITS (7.330-7.430); VENOUS STANDARD HCO3 21.1 MEQ/L; VENOUS TOTAL CO2 19.9 MEQ/L (24.0-28.0)
[2019-07-15 05:26] LABS: BASO # 0.1 10^3/uL (0.0-0.2); BASO % 0.9 % (0.0-1.0); EOS # 0.2 10^3/uL (0.0-0.5); EOS % 3.6 % (0.0-3.0); HEMATOCRIT 31.7 % (36.0-47.0); LYMPH # 2.5 10^3/uL (1.5-5.0); LYMPH % 37.9 % (24.0-44.0); MEAN CORPUSCULAR HEMOGLOBIN 31.4 pg (27.0-33.0); MEAN CORPUSCULAR HGB CONC 33.4 g/dl (32.0-36.5); MEAN CORPUSCULAR VOLUME 93.8 fl (80.0-96.0); MONO # 0.5 10^3/uL (0.0-0.8); MONO % 7.8 % (0.0-5.0); NEUTROPHILS # 3.3 10^3/uL (1.5-8.5); NEUTROPHILS % 49.2 % (36.0-66.0); PLATELET COUNT, AUTOMATED 282 10^3/uL (150-450); RED BLOOD COUNT 3.38 10^6/uL (4.00-5.40); WHITE BLOOD COUNT 6.7 10^3/uL (4.0-10.0)
[2019-07-15 05:39] LABS: HEMOGLOBIN 10.6 g/dl (12.0-15.5)
[2019-07-15 05:47] LABS: ACETONE/KETONE 1.39 MG/DL (<2.81); BLOOD UREA NITROGEN 7 MG/DL (7-18); CALCIUM LEVEL 8.1 MG/DL (8.5-10.1); CARBON DIOXIDE LEVEL 20 MEQ/L (21-32); CHLORIDE LEVEL 111 MEQ/L (98-107); CREATININE FOR GFR 0.66 MG/DL (0.55-1.30); GLOMERULAR FILTRATION RATE > 60.0 (>51); GLUCOSE, FASTING 76 MG/DL (70-100); MAGNESIUM LEVEL 1.8 MG/DL (1.8-2.4); PHOSPHORUS LEVEL 2.5 MG/DL (2.5-4.9); POTASSIUM SERUM 3.7 MEQ/L (3.5-5.1); SODIUM LEVEL 139 MEQ/L (136-145)
[2019-07-15] MEDS: HEPARIN SOD (PORCINE) 5000UNITS/ML VIAL (J1644 PER 1000UNITS) SC SCH (05:58)
[2019-07-15] MEDS ORDERED: HumaLOG INSULIN (NovoLOG) PER UNIT SC SCH (07:30)
[2019-07-15 07:47] VITALS: BP 149/70
[2019-07-15] MEDS: SUCRALFATE SUSP 1GM/10ML UD PO SCH (08:44)
[2019-07-15] MEDS: PREGABALIN 75 MG CAP(LYRICA) PO SCH (08:44)
[2019-07-15] MEDS: MAGNESIUM OXIDE 400 MG TAB (MAG-OX) PO SCH (08:44)
[2019-07-15] MEDS ORDERED: FERROUS SULFATE 325MG TAB PO SCH (09:00)
[2019-07-15] MEDS ORDERED: ATORVASTATIN 20 MG TAB PO SCH (09:00)
[2019-07-15] MEDS ORDERED: PANTOPRAZOLE 40MG TAB (PROTONIX) PO SCH (09:00)
[2019-07-15] MEDS ORDERED: MULTIVITAMINS/MINERALS THERAP 1 TAB PO SCH (09:00)
[2019-07-15] MEDS ORDERED: VITAMIN D 1,000 INTERNATIONAL UNITS TABLET PO SCH (09:00)
[2019-07-15] MEDS ORDERED: ASPIRIN 81 MG ENTERIC TAB PO SCH (09:00)
[2019-07-15] MEDS ORDERED: FLUoxetine 20 MG CAP PO SCH (09:00)
[2019-07-15] MEDS ORDERED: SUCR1SS PO (09:26)
--- NOTE | 2019-07-15 10:44 | DS.PDOC ---
Discharge Summary General Date of Admission Jul 14, 2019 at 08:34 Date of Discharge 07/15/2019 Discharge Summary PROCEDURES PERFORMED DURING STAY: [None]. ADMITTING DIAGNOSES / DISCHARGE DIAGNOSES: s/p Diabetic ketoacidosis Gastroparesis / Neuropathy HTN DLP JERAD Asthma Vitamin D deficiency Hx of TIA Anxiety / Depression GERD s/p Gretchen Fundoplication / Celiac disease / Hx of Gastritis and bleed (2014) DVT prophylaxis COMPLICATIONS/CHIEF COMPLAINT: Nausea and Vomiting HISTORY OF PRESENT ILLNESS: Patient is a 53-year-old female with a PMHx of IDDM1, Gastroparesis, HTN, DLP, JERAD, Ashtma, Hx of TIA, GERD s/p Gretchen Fundoplication / Celiac disease / Hx of Gastritis and bleed (2014), who presented to the hospital with complaints of nausea and vomiting started yesterday evening. Patient has reported that shes experienced greater than 10 episodes of nausea and vomiting. No evidence of blood. She denies any chest pain, shortness of breath or palpitations. Denies any associated abdominal pain, fevers or chills. She is not experiencing any constipation, diarrhea or urinary discomfort. She does report that she is compliant with her insulin. In the emergency room, patient was found to be in DKA and was admitted to hospitalist service for further evaluation and treatment. HOSPITAL COURSE: s/p Diabetic ketoacidosis - She has had resolution of her symptoms - Etiology of DKA is still unclear; patient has reported compliance with medications; A1c noted to be 9.3 - Blood cultures negative 07/13: at 24 hours - UA negative - Troponins x 3 negative - EKG was reviewed without any ischemic changes noted - CXR 07/13: No acute cardiopulmonary process appreciated. - s/p Insulin drip; has been transitioned to SQ insulin today - She has been tolerating her diet this morning - Follow up with PCP / Endocrinology and Surgery (at [facility]) within 7 days Gastroparesis / Neuropathy - c/w symptomatic control with Zofran / Reglan - c/w Pregabalin HTN - BP better controlled - Currently not on any medications DLP - c/w Atorvastatin JERAD - May allow home CPAP use while inpatient Asthma - No evidence of exacerbation - c/w inhaled therapy as ordered Vitamin D deficiency - c/w Supplementation Hx of TIA - c/w ASA and Atorvastatin Anxiety / Depression - c/w Clonazepam / Fluoxetine GERD s/p Gretchen Fundoplication / Celiac disease / Hx of Gastritis and bleed (2014) - c/w Protonix; will adjust back to oral dosing - Advised patient to follow-up with surgeon at [facility]; scheduled for follow-up appointment, 07/21/19 DVT prophylaxis - c/w Heparin DISCHARGE MEDICATIONS: Please see below. ALLERGIES: Please see below. PHYSICAL EXAMINATION ON DISCHARGE: Vitals (See below) General: Lying in bed, appears comfortable, AAOx3 HEENT: NC, AT CVS: +S1S2 Lungs: Fair air entry b/l, auscultations without any wheezing, rhonchi or crackles Abdomen: Soft, ND, NT Extremities: No evidence of edema, - Calf tenderness LABORATORY DATA: Please see below. ACTIVITY: [As tolerated]. DISCHARGE PLAN: Follow-up with primary care provider endocrinology and surgery at [facility] Remain compliant with treatment plan and medications Return to the ER if you experience any problems DISPOSITION: Home DISCHARGE CONDITION: [Stable]. TIME SPENT ON DISCHARGE: 35 minutes. Vital Signs/I&Os Vital Signs Date Time Temp Pulse Resp B/P (MAP) Pulse Ox O2 Delivery O2 Flow Rate FiO2 07/15/19 07:47 99.1 94 16 149/70 (96) 97 Room Air I&O- Last 24 Hours up to 6 AM 07/15/19 06:00 Intake Total 3447.0 ml Output Total 1575 ml Balance 1872.0 ml Laboratory Data Labs 24H Laboratory Tests 2 07/14/19 10:56: Bedside Glucose (Misc Panel) 142H 07/14/19 11:31: Urine Color STRAW, Urine Appearance CLEAR, Urine pH 5.0, Urine Specific [place] 1.020, Urine Protein 1+H, Urine Glucose (UA) 3+H, Urine Ketones 2+H, Urine Blood NEGATIVE, Urine Nitrite NEGATIVE, Urine Bilirubin NEGATIVE, Urine Urobilinogen 0.2, Urine Leukocyte Esterase NEGATIVE, Urine WBC (Auto) 0, Urine RBC (Auto) 0, Urine Hyaline Casts (Auto) 0, Urine Bacteria (Auto) 1+H, Urine Squamous Epithelial Cells 0, Urine Sperm (Auto) 07/14/19 11:57: Bedside Glucose (Misc Panel) 154H 07/14/19 12:57: Bedside Glucose (Misc Panel) 126H, Blood Gas Bicarbonate Standard 15.1, Venous Blood pH 7.315L, Venous Blood Partial Pressure CO2 24.9L, Venous Blood Partial Pressure O2 92.2H, Venous Blood Total Carbon Dioxide 13.2L, Venous Blood HCO3 12.4L, Venous Blood Oxygen Saturation 97.4H, Venous Blood Base Excess -12.0L, Anion Gap 15, Glomerular Filtration Rate > 60.0, Calcium Level 8.3L, Phosphorus Level 2.2#L, Magnesium Level 2.0, Total Creatine Kinase 56, Creatine Kinase MB 1.0, Creatine Kinase MB Relative Index 1.79, Troponin I < 0.02, B- Hydroxybutyrate 44.58H 07/14/19 14:00: Bedside Glucose (Misc Panel) 130H 07/14/19 15:05: Bedside Glucose (Misc Panel) 143H 07/14/19 16:13: Bedside Glucose (Misc Panel) 180H 07/14/19 17:04: Bedside Glucose (Misc Panel) 155H 07/14/19 17:16: Blood Gas Bicarbonate Standard 15.9, Venous Blood pH 7.339, Venous Blood Partial Pressure CO2 25.0L, Venous Blood Partial Pressure O2 93.3H, Venous Blood Total Carbon Dioxide 13.9L, Venous Blood HCO3 13.2L, Venous Blood Oxygen Saturation 97.6H, Venous Blood Base Excess -10.9L, Anion Gap 15, Glomerular Filtration Rate 59.9, Calcium Level 7.8L, Phosphorus Level 3.3#, Magnesium Level 1.8, B- Hydroxybutyrate 27.22H 07/14/19 17:51: Bedside Glucose (Misc Panel) 120H 07/14/19 18:58: Bedside Glucose (Misc Panel) 208H 07/14/19 19:58: Bedside Glucose (Misc Panel) 142H 07/14/19 21:03: Bedside Glucose (Misc Panel) 120H 07/14/19 21:11: Blood Gas Bicarbonate Standard 18.5, Venous Blood pH 7.401, Venous Blood Partial Pressure CO2 26.2L, Venous Blood Partial Pressure O2 203.6H, Venous Blood Total Carbon Dioxide 16.7L, Venous Blood HCO3 15.9L, Venous Blood Oxygen Saturation 99.7H, Venous Blood Base Excess -7.4L, Anion Gap 10, Glomerular Filtration Rate > 60.0, Calcium Level 8.1L, Phosphorus Level 2.6#, Magnesium Level 1.7L, B- Hydroxybutyrate 19.36H 07/14/19 22:15: Bedside Glucose (Misc Panel) 213H 07/14/19 23:07: Bedside Glucose (Misc Panel) 166H 07/15/19 01:05: Blood Gas Bicarbonate Standard 16.0, Venous Blood pH 7.342, Venous Blood Partial Pressure CO2 25.6L, Venous Blood Partial Pressure O2 148.7H, Venous Blood Total Carbon Dioxide 14.3L, Venous Blood HCO3 13.6L, Venous Blood Oxygen Saturation 99.1H, Venous Blood Base Excess -10.6L, Anion Gap 15, Glomerular Filtration Rate > 60.0, Calcium Level 7.9L, Phosphorus Level 2.7, Magnesium Level 1.6L, B- Hydroxybutyrate 32.71H 07/15/19 05:15: Blood Gas Bicarbonate Standard 21.1, Venous Blood pH 7.435H, Venous Blood Partial Pressure CO2 29.0L, Venous Blood Partial Pressure O2 207.4H, Venous Blood Total Carbon Dioxide 19.9L, Venous Blood HCO3 19.0L, Venous Blood Oxygen Saturation 99.7H, Venous Blood Base Excess -4.1L, Anion Gap 8, Glomerular Filtration Rate > 60.0, Calcium Level 8.1L, Phosphorus Level 2.5, Magnesium Level 1.8, B-Hydroxybutyrate 1.39, Immature Granulocyte % (Auto) 0.6, Neutrophils (%) (Auto) 49.2, Lymphocytes (%) (Auto) 37.9, Monocytes (%) (Auto) 7.8H, Eosinophils (%) (Auto) 3.6H, Basophils (%) (Auto) 0.9, Neutrophils # (Auto) 3.3, Lymphocytes # (Auto) 2.5, Monocytes # (Auto) 0.5, Eosinophils # (Auto) 0.2, Basophils # (Auto) 0.1, Nucleated Red Blood Cells % (auto) 0.0 07/15/19 06:30: Bedside Glucose (Misc Panel) 44L 07/15/19 06:56: Bedside Glucose (Misc Panel) 104 CBC/BMP Laboratory Tests 07/14/19 12:57 07/14/19 17:16 07/14/19 21:11 07/15/19 01:05 07/15/19 05:15 FSBS Laboratory Tests Test 07/14/19 10:56 07/14/19 11:57 07/14/19 12:57 07/14/19 14:00 Range/Units Bedside Glucose (Misc Panel) 142 154 126 130 70-105 MG/DL Test 07/14/19 15:05 07/14/19 16:13 07/14/19 17:04 07/14/19 17:51 Range/Units Bedside Glucose (Misc Panel) 143 180 155 120 70-105 MG/DL Test 07/14/19 18:58 07/14/19 19:58 07/14/19 21:03 07/14/19 22:15 Range/Units Bedside Glucose (Misc Panel) 208 142 120 213 70-105 MG/DL Test 07/14/19 23:07 07/15/19 06:30 07/15/19 06:56 Range/Units Bedside Glucose (Misc Panel) 166 44 104 70-105 MG/DL Microbiology Microbiology 07/14/19 Blood Culture - Preliminary, Resulted No growth after 24 hours . All specim... 07/14/19 Blood Culture - Preliminary, Resulted No growth after 24 hours . All specim... Discharge Medications Scheduled Aspirin (Aspirin EC) 81 Mg Tabec, 81 MG PO DAILY, (Reported) Atorvastatin Calcium (Atorvastatin Calcium) 20 Mg Tablet, 20 MG PO DAILY, (Reported) Cholecalciferol (Vitamin D3) (Vitamin D3) 1,000 Unit Tablet, 1,000 UNITS PO DAILY, (Reported) Clonazepam (Clonazepam) 1 Mg Tablet, 1 MG PO TID, (Reported) Dulaglutide (Trulicity) 1.5 Mg/0.5 Ml Inj, 1.5 MG SC QWEEK, (Reported) TAKES ON WEDNESDAYS Ferrous Sulfate (Ferrous Sulfate) 325 Mg Tab, 325 MG PO DAILY, (Reported) Fluoxetine Hcl (Fluoxetine HCl) 20 Mg Capsule, 20 MG PO DAILY, (Reported) Insulin Aspart (Niacinamide) (Fiasp 100 Unit/ml Flextouch) 100 Unit/1 Ml Insuln.pen, 1 DOSE SC AC, (Reported) PER SLIDING SCALE Insulin Degludec (Tresiba Flextouch U-100) 100 Unit/1 Ml Insuln.pen, 20 UNIT SC DAILY, (Reported) Methocarbamol (Methocarbamol) 500 Mg Tablet, 500 MG PO BID, (Reported) Multivitamins (Thera M Plus Tablet) 1 Tab Tab, 1 TAB PO DAILY, (Reported) Pantoprazole Sodium (Pantoprazole Sodium) 40 Mg Tablet.dr, 40 MG PO BID, (Reported) Pregabalin (Pregabalin) 75 Mg Capsule, 75 MG PO BID, (Reported) Sucralfate (Carafate) 1 Gm/10 Ml Oral.susp, 10 ML PO QID before food Varenicline (Chantix) 1 Mg Tablet, 1 MG PO BID, (Reported) Scheduled PRN Albuterol Sulfate (Ventolin Hfa) 108 Mcg/Act Aer, 2 PUFFS INH Q4H PRN for SHORTNESS OF BREATH, (Reported) Ammonium Lactate (Ammonium Lactate) 12 % Cre, 1 DOSE TOP DAILY PRN for PAIN, (Reported) APPLY TO FEET Docusate Sodium (Colace) 100 Mg Cap, 100 MG PO BID PRN for CONSTIPATION, (Reported) Glucagon,Human Recombinant (Glucagon Emergency Kit) 1 Mg Kit, 1 MG IM ASDIRECTED PRN for LOW BLOOD SUGAR, (Reported) Lidocaine (Lidocaine) 120 Gm Oint...g., 1 DOSE TOP DAILY PRN for BACK PAIN, (Reported) Ondansetron (Ondansetron Odt) 4 Mg Tab.rapdis, 4 MG PO Q6H PRN for NAUSEA OR VOMITING, (Reported) Oxycodone HCl/Acetaminophen (Oxycodone-Acetaminophen 5-325) 1 Each Tablet, 1 TAB PO BID PRN for PAIN, (Reported) Polyethylene Glycol 3350 (Miralax) 119 Gm Powder, 17 GM PO DAILY PRN for CONSTIPATION, (Reported) Promethazine HCl (Promethazine HCl) 25 Mg Tablet, 25 MG PO Q6H PRN for NAUSEA OR VOMITING, (Reported) Propylene Glycol/Peg 400 (Systane 0.3-0.4% Eye Drops) 15 Ml Sade, 1 DROP OU QID PRN for DRY EYES, (Reported) Sodium Chloride ([place]) 0.65 % Spr, 2 SPRAY NA QID PRN for NASAL DRYNESS, (Reported) Tizanidine HCl (Tizanidine HCl) 4 Mg Tablet, 4 MG PO TID PRN for MUSCLE SPASMS, (Reported) Trazodone HCl (Trazodone HCl) 50 Mg Tablet, 50 MG PO QHS PRN for SLEEP, (Reported) Miscellaneous Medications [Patient Comment] , (Reported) PATIENT UNABLE TO VERIFY MEDICATIONS AT THIS TIME - MED LIST VERIFIED WITH PHARMACY. Allergies Coded Allergies: TAPE (Verified Allergy, Mild, PLASTIC TAPE- RASH, 07/06/19) BANDAIDS -RASH prednisone (Verified Adverse Reaction, Intermediate, EXTREME ELEVATED BLOOD SUGAR, 07/06/19) Gluten Flour (Verified Adverse Reaction, Mild, diarrhea, 07/06/19) gluten (Verified Adverse Reaction, Mild, DIARRHEA, 07/06/19) AMY HOWELL MD Jul 15, 2019 10:44
== END 2019-07-15 10:41 | disposition home or self-care (01) | DRG 639 ==
LOC: M ED 04:36 → M ED INP 08:34 → ENRESERV 08:54 → M ICU 10:10
PROVIDERS: ADMIT Internal Medicine; ATTEND Internal Medicine
DX: E10.10 Type 1 diabetes mellitus with ketoacidosis without coma (principal); E10.43 Type 1 diabetes mellitus with diabetic autonomic (poly)neuropathy; I10 Essential (primary) hypertension; K21.9 Gastro-esophageal reflux disease without esophagitis; F41.9 Anxiety disorder, unspecified; F32.9 Major depressive disorder, single episode, unspecified; G47.33 Obstructive sleep apnea (adult) (pediatric); J45.909 Unspecified asthma, uncomplicated; E55.9 Vitamin D deficiency, unspecified; Z86.73 Personal history of transient ischemic attack (TIA), and cerebral infarction without residual deficits; K90.0 Celiac disease; Z79.899 Other long term (current) drug therapy; Z79.82 Long term (current) use of aspirin; Z88.8 Allergy status to other drugs, medicaments and biological substances

== ENCOUNTER 2019-07-18 20:22 | Inpatient (IN) | payer OTHER, MEDICAID ==
[~2019-07-18] VITALS: Ht 162.6 cm; Wt 58.3 kg
[~2019-07-18 20:22] MED LIST changes: +SUCR1SS PO
[2019-07-18] MEDS ORDERED: NS 1,000 ML IV ONE (20:45)
[2019-07-18] MEDS ORDERED: INSULIN IV RATE CHANGE DOCUMENTATION ML/HR XX SCH (21:00)
[2019-07-18] MEDS ORDERED: HumuLIN R (REGULAR) INSULIN (NovoLIN R) **100U/ML** PER UNIT IV ONE ×2 (21:00→22:45)
[2019-07-18] MEDS ORDERED: INSULIN REGULAR IN 0.9 % NACL 100 UNIT in IV 1 EA IV SCH ×2 (21:00)
[2019-07-18 21:40] LABS: BASO # 0.1 10^3/uL (0.0-0.2); BASO % 0.7 % (0.0-1.0); EOS # 0.1 10^3/uL (0.0-0.5); EOS % 0.4 % (0.0-3.0); HEMATOCRIT 37.3 % (36.0-47.0); HEMOGLOBIN 11.2 g/dl (12.0-15.5); LYMPH % 10.4 % (24.0-44.0); MEAN CORPUSCULAR HEMOGLOBIN 31.7 pg (27.0-33.0); MEAN CORPUSCULAR VOLUME 105.7 fl (80.0-96.0); MONO # 0.9 10^3/uL (0.0-0.8); MONO % 4.6 % (0.0-5.0); NEUTROPHILS # 15.5 10^3/uL (1.5-8.5); NEUTROPHILS % 82.7 % (36.0-66.0); PLATELET COUNT, AUTOMATED 433 10^3/uL (150-450); RED BLOOD COUNT 3.53 10^6/uL (4.00-5.40); WHITE BLOOD COUNT 18.8 10^3/uL (4.0-10.0)
[2019-07-18] MEDS ORDERED: NS 1,000 ML IV SCH (21:47)
[2019-07-18] MEDS ORDERED: METOCLOPRAMIDE INJ 10MG/2ML VIAL (J2765 PER 1) IV ONE (22:00)
[2019-07-18] MEDS ORDERED: ACETAMINOPHEN TAB 650MG DOSE (2X325MG) PO PRN (22:00)
--- NOTE | 2019-07-18 22:24 | HPEPDOC ---
General Date of Admission 07/18/2019 Date of Service: Jul 18, 2019 Chief Complaint The patient is a 53-year-old female Who presented to the emergency room with complaint of nausea and vomiting History of Present Illness Patient is a 53-year-old female with a PMHx of IDDM1, Gastroparesis, H TN, DLP, JERAD, Asthma, Hx of TIA, GERD s/p Gretchen Fundoplication / Celiac disease / Hx of Gastritis and bleed (2014), who presented to the hospital with nausea and vomiting that started 3 days prior. Patient was recently admitted to the hospital on 07/13-07/14 for DKA. At that point, patient etiology DKA was unclear. Patient was evaluated for any septic source or any cardiac etiology, all of which was negative. She had full resolution of her symptoms and was discharged home with outpatient follow-up with her primary care provider, surgery and endocrinology Sheikh patient reports that shes experienced 3 days of nausea and vomiting. Patient is unable to quantify how many times she has vomited. She denies any evidence of blood. Patient reports decreased oral intake. Patient has tested that she has been complaint with her insulin. Currently she denies any chest pain, shortness of breath, cough, fevers or chills. Denies any abdominal pain, constipation, diarrhea, or urinary discomfort. Home Medications Scheduled Aspirin (Aspirin EC) 81 Mg Tabec, 81 MG PO DAILY, (Reported) Atorvastatin Calcium (Atorvastatin Calcium) 20 Mg Tablet, 20 MG PO DAILY, (Reported) Cholecalciferol (Vitamin D3) (Vitamin D3) 1,000 Unit Tablet, 1,000 UNITS PO DAILY, (Reported) Clonazepam (Clonazepam) 1 Mg Tablet, 1 MG PO TID, (Reported) Ferrous Sulfate (Ferrous Sulfate) 325 Mg Tab, 325 MG PO DAILY, (Reported) Fluoxetine Hcl (Fluoxetine HCl) 20 Mg Capsule, 20 MG PO DAILY, (Reported) Insulin Aspart (Niacinamide) (Fiasp 100 Unit/ml Flextouch) 100 Unit/1 Ml Insuln.pen, 1 DOSE SC AC, (Reported) PER SLIDING SCALE Insulin Degludec (Tresiba Flextouch U-100) 100 Unit/1 Ml Insuln.pen, 20 UNIT SC DAILY, (Reported) Methocarbamol (Methocarbamol) 500 Mg Tablet, 500 MG PO BID, (Reported) Multivitamins (Thera M Plus Tablet) 1 Tab Tab, 1 TAB PO DAILY, (Reported) Pantoprazole Sodium (Pantoprazole Sodium) 40 Mg Tablet.dr, 40 MG PO BID, (Repor abelardo) Pregabalin (Pregabalin) 75 Mg Capsule, 75 MG PO BID, (Reported) Sucralfate (Carafate) 1 Gm/10 Ml Oral.susp, 10 ML PO QID before food Varenicline (Chantix) 1 Mg Tablet, 1 MG PO BID, (Reported) Scheduled PRN Albuterol Sulfate (Ventolin Hfa) 108 Mcg/Act Aer, 2 PUFFS INH Q4H PRN for SHORTNESS OF BREATH, (Reported) Ammonium Lactate (Ammonium Lactate) 12 % Cre, 1 DOSE TOP DAILY PRN for PAIN, (Reported) APPLY TO FEET Docusate Sodium (Colace) 100 Mg Cap, 100 MG PO BID PRN for CONSTIPATION, (Reported) Glucagon,Human Recombinant (Glucagon Emergency Kit) 1 Mg Kit, 1 MG IM ASDIRECTED PRN for LOW BLOOD SUGAR, (Reported) Lidocaine (Lidocaine) 120 Gm Oint...g., 1 DOSE TOP DAILY PRN for BACK PAIN, (Reported) Ondansetron (Ondansetron Odt) 4 Mg Tab.rapdis, 4 MG PO Q6H PRN for NAUSEA OR VOMITING, (Reported) Oxycodone HCl/Acetaminophen (Oxycodone-Acetaminophen 5-325) 1 Each Tablet, 1 TAB PO BID PRN for PAIN, (Reported) Polyethylene Glycol 3350 (Miralax) 119 Gm Powder, 17 GM PO DAILY PRN for CONSTIPATION, (Reported) Promethazine HCl (Promethazine HCl) 25 Mg Tablet, 25 MG PO Q6H PRN for NAUSEA OR VOMITING, (Reported) Propylene Glycol/Peg 400 (Systane 0.3-0.4% Eye Drops) 15 Ml Sade, 1 DROP OU QID PRN for DRY EYES, (Reported) Sodium Chloride ([place]) 0.65 % Spr, 2 SPRAY NA QID PRN for NASAL DRYNESS, (Reported) Tizanidine HCl (Tizanidine HCl) 4 Mg Tablet, 4 MG PO TID PRN for MUSCLE SPASMS, (Reported) Trazodone HCl (Trazodone HCl) 50 Mg Tablet, 50 MG PO QHS PRN for SLEEP, (Reported) Miscellaneous Medications [Patient Comment] , (Reported) PATIENT UNABLE TO VERIFY MEDICATIONS AT THIS TIME - MED LIST VERIFIED WITH PHARMACY. Allergies Coded Allergies: TAPE (Verified Allergy, Mild, PLASTIC TAPE- RASH, 07/06/19) BANDAIDS -RASH prednisone (Verified Adverse Reaction, Intermediate, EXTREME ELEVATED BLOOD SUGAR, 07/06/19) Gluten Flour (Verified Adverse Reaction, Mild, diarrhea, 07/06/19) gluten (Verified Adverse Reaction, Mild, DIARRHEA, 07/06/19) Past Medical History Medical History IDDM1, Gastroparesis, HTN, DLP, JERAD, Ashtma, Hx of TIA, GERD s/p Gretchen Fundoplication / Celiac disease / Hx of Gastritis and bleed (2014) Surgical History Gretchen Fundoplication Gastric sleeve 2013 Colonoscopy and EGD ERCP with papillotomy and balloon sweep 06/10/2018 Cholecystectomy Appendectomy section Hysterectomy Family History - Patient reports her mother has a history of heart disease and of heart attack Social History - Denies the use of alcohol or illicit drugs; patient reports that she quit smoking - Denies recent travel or sick contacts - Lives with boyfriend - 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; 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 Review of Systems Other systems 10 point review systems is complete, all negative otherwise stated in HPI Vital Signs - Vitals: BP 132/62, HR 116, RR 20, Sat 98%RA, Temp 98.4F - General: Sitting up in bed, appears to be nauseous, speaking in full sentences, AAOx3 - HEENT: NC, AT, PERRLA, EOMI - CVS: Tachycardic, +S1S2 - Lungs: Fair air entry bilaterally, No appreciable wheezing / rales / rhonchi - Abdomen: Soft, Non-distended, Non-tender - Extremities: No lower extremity edema, No calf tenderness - Neuro: No focal motor or sensory deficit - Skin: No visible rashes Laboratory Data Labs 24H Laboratory Tests 2 07/18/19 21:28: Immature Granulocyte % (Auto) 1.2, Neutrophils (%) (Auto) 82.7H, Lymphocytes (%) (Auto) 10.4L, Monocytes (%) (Auto) 4.6, Eosinophils (%) (Auto) 0.4, Basophils (%) (Auto) 0.7, Neutrophils # (Auto) 15.5H, Lymphocytes # (Auto) 2.0, Monocytes # (Auto) 0.9H, Eosinophils # (Auto) 0.1, Basophils # (Auto) 0.1, Nucleated Red Blood Cells % (auto) 0.0 CBC/BMP Laboratory Tests 07/18/19 21:28 Plan / VTE VTE Prophylaxis Ordered?: Yes Plan Plan Diabetic ketoacidosis - Patient has reported again to the emergency room with complaints of nausea and vomiting that has occurred for 3 days - Physical is without any significant findings; patient is tachycardic with emergency room - Patient visit to prior admissions for DKA, without any clear etiology - He has reported compliance with medications - Again will check Cultures / UA with reflex - EKG is without any ischemic changes similar to prior - Will trend troponins - Admit to ICU for insulin drip and IV fluid hydration - Will check basic metabolic panel, magnesium, phosphorus, ketones every 4 hours - Patient will remain nothing by mouth Leukocytosis - ROS is negative - Remains afebrile - Will check UA with reflex / Blood cultures / PCT - If UA abnormal will start antibiotics Gastroparesis / Neuropathy - c/w symptomatic control with Zofran / Reglan - c/w Pregabalin - Patient was scheduled to see her surgeon on 07/20 for an upper GI series and follow-up - However, given the third recurrence of her DKA, will repeat upper GI series while inpatient HTN - BP better controlled - Currently not on any medications DLP - c/w Atorvastatin JERAD - May allow home CPAP use while inpatient Asthma - No evidence of exacerbation - c/w inhaled therapy as ordered Vitamin D deficiency - c/w Supplementation Hx of TIA - Will resume ASA and Atorvastatin Anxiety / Depression - c/w Clonazepam / Fluoxetine GERD s/p Gretchen Fundoplication / Celiac disease / Hx of Gastritis and bleed (2014) - Will start Protonix IV DVT prophylaxis - Will start Heparin AMY HOWELL MD Jul 18, 2019 21:56
[2019-07-18 22:26] LABS: ACETONE/KETONE > 46.00 MG/DL (<2.81); ALBUMIN 2.8 GM/DL (3.2-5.2); ALT/SGPT 27 U/L (12-78); BILIRUBIN,DIRECT 0.2 MG/DL (0.0-0.2); BILIRUBIN,TOTAL 0.4 MG/DL (0.2-1.0); BLOOD UREA NITROGEN 13 MG/DL (7-18); CALCIUM LEVEL 8.6 MG/DL (8.5-10.1); CARBON DIOXIDE LEVEL 4 MEQ/L (21-32); CHLORIDE LEVEL 99 MEQ/L (98-107); CK-MB VALUE MASS 1.8 NG/ML (<3.6); CPK CREATINE PHOSPHOKINASE 58 U/L (26-192); CREATININE FOR GFR 1.33 MG/DL (0.55-1.30); GLOMERULAR FILTRATION RATE 44.1 (>51); GLUCOSE, FASTING 732 MG/DL (70-100); LIPASE 34 U/L (73-393); MAGNESIUM LEVEL 1.9 MG/DL (1.8-2.4); POTASSIUM SERUM 4.7 MEQ/L (3.5-5.1); SODIUM LEVEL 130 MEQ/L (136-145); TROPONIN I < 0.02 NG/ML (< 0.10)
[2019-07-18] MEDS ORDERED: POTASSIUM CHLORIDE 10 MEQ SR TABLET PO ONE (22:45)
[2019-07-18] MEDS: PANTOPRAZOLE 40MG VIAL (C9113 PER 1) IV SCH (23:00)
[2019-07-18] MEDS ORDERED: TRUL0.5I SC (23:18)
[2019-07-18 23:23] LABS: VENOUS BASE EXCESS -28.8 (-2.0-2.0); VENOUS HCO3 2.4 MEQ/L (23.0-27.0); VENOUS PARTIAL PRESSURE O2 196.6 mmHg (30.0-50.0); VENOUS PH 6.911 UNITS (7.330-7.430); VENOUS STANDARD HCO3 4.9 MEQ/L; VENOUS TOTAL CO2 2.7 MEQ/L (24.0-28.0)
[2019-07-18] MEDS: PROMETHAZINE INJ 25 MG/ML VIAL (J2550) IV PRN (23:45)
[2019-07-18] MEDS: KCL 10MEQ/100ML SWI (KRUN) 10 MEQ in IV 1 EA IV SCH (23:45)
[2019-07-18] MEDS: HEPARIN SOD (PORCINE) 5000UNITS/ML VIAL (J1644 PER 1000UNITS) SC SCH (23:45)
[2019-07-18] MEDS: PIPERACILLIN/TAZOBACTAM SOD 3.375 GM in D5W MINI-BAG PLUS 50 ML IV SCH (23:45)
[2019-07-18] MEDS: INSULIN IV RATE CHANGE DOCUMENTATION ML/HR XX SCH (23:59)
[2019-07-19] VITALS (19 sets, daily range): BP systolic 129–162; BP diastolic 61–73
[2019-07-19 00:04] LABS: CREATININE FOR GFR 1.31 MG/DL (0.55-1.30); GLOMERULAR FILTRATION RATE 44.9 (>51); PHOSPHORUS LEVEL 5.6 MG/DL (2.5-4.9); POTASSIUM SERUM 3.9 MEQ/L (3.5-5.1)
[2019-07-19] MEDS ORDERED: IPRATROPIUM 0.5MG/ALBUTEROL 2.5MG INH SOL UD 3ML (DUONEB) NEB PRN (00:15)
[2019-07-19] MEDS ORDERED: SODIUM BICARBONATE 8.4% INJ 50 ML SYRINGE IV STA (00:57)
[2019-07-19 01:29] LABS: ABG BASE EXCESS -18.4 (-2.0-2.0); ABG HCO3 6.4 MEQ/L (22.0-26.0); ABG O2 SATURATION 99.2 % (95.0-99.0); ABG PARTIAL PRESSURE CO2 14.6 mmHg (35.0-45.0); ABG PARTIAL PRESSURE O2 170.4 mmHg (75.0-100.0); ABG STANDARD HCO3 10.7 MEQ/L (22.0-26.0); ABG TOTAL CO2 6.8 MEQ/L (22.0-29.0); ABG pH (ARTERIAL) 7.258 UNITS (7.350-7.450)
[2019-07-19] MEDS: KCL 10MEQ/100ML SWI (KRUN) 10 MEQ in IV 1 EA IV SCH ×3 (01:36→22:44)
[2019-07-19] MEDS ORDERED: SODIUM BICARBONATE 150 MEQ in STERILE WATER LITER BAG 1,000 ML IV SCH (02:00)
[2019-07-19] MEDS: INSULIN IV RATE CHANGE DOCUMENTATION ML/HR XX SCH ×13 (02:09→21:11)
[2019-07-19] MEDS ORDERED: traZODone 50 MG TAB PO PRN (03:30)
[2019-07-19] MEDS ORDERED: ALBUTEROL 90 MCG/ACT 8GM HFA INHALER INH PRN (03:30)
[2019-07-19] MEDS ORDERED: GLUCAGON INJ 1MG VIAL IM PRN (03:30)
[2019-07-19] MEDS ORDERED: LACTIC ACID 12% LOTION 225 GM BTL TOP PRN (03:30)
[2019-07-19] MEDS ORDERED: POLYVINYL ALCOHOL OPHTH SOLN 15 ML(LIQUITEARS) OU PRN (03:30)
[2019-07-19] MEDS ORDERED: LIDOCAINE 5% OINT 30 GM TOP PRN (03:30)
[2019-07-19] MEDS ORDERED: SODIUM CHLORIDE NASAL 0.65% SPRAY BTL (OCEAN) PRN (03:30)
[2019-07-19] MEDS ORDERED: MIRALAX *UNIT DOSE* 17GM PACKET PO PRN (03:30)
[2019-07-19] MEDS ORDERED: DOCUSATE SODIUM 100 MG CAP PO PRN (03:30)
[2019-07-19 03:44] LABS: ABG BASE EXCESS -11.9 (-2.0-2.0); ABG HCO3 10.6 MEQ/L (22.0-26.0); ABG O2 SATURATION 99.2 % (95.0-99.0); ABG PARTIAL PRESSURE CO2 17.2 mmHg (35.0-45.0); ABG PARTIAL PRESSURE O2 151.7 mmHg (75.0-100.0); ABG STANDARD HCO3 15.1 MEQ/L (22.0-26.0); ABG TOTAL CO2 11.1 MEQ/L (22.0-29.0); ABG pH (ARTERIAL) 7.407 UNITS (7.350-7.450)
[2019-07-19] MEDS ORDERED: METOCLOPRAMIDE INJ 10MG/2ML VIAL (J2765 PER 1) IV PRN (04:00)
[2019-07-19 04:09] LABS: ACETONE/KETONE 36.42 MG/DL (<2.81); MAGNESIUM LEVEL 1.6 MG/DL (1.8-2.4)
[2019-07-19 04:14] LABS: CK-MB VALUE MASS 2.6 NG/ML (<3.6); CPK CREATINE PHOSPHOKINASE 91 U/L (26-192); MB/CK RELATIVE INDEX 2.86 (< OR =4); TROPONIN I < 0.02 NG/ML (< 0.10)
[2019-07-19] MEDS ORDERED: GLUCAGON INJ 1MG VIAL SC PRN (04:15)
[2019-07-19] MEDS ORDERED: GLUCOSE 4GM CHEW TABLET PO PRN (04:15)
[2019-07-19] MEDS ORDERED: DEXTROSE 50% 50 ML SYRINGE IV PRN (04:15)
[2019-07-19] MEDS ORDERED: D5W/0.45% SODIUM CHLORIDE 1,000 ML IV SCH (04:45)
--- NOTE | 2019-07-19 04:45 | REP ---
Clinical: Line placement . Comparison: 07/14/2019 . Findings: IJ line with tip in the SVC. The mediastinum and cardiac silhouette are stable and within normal limits for portable technique. The lung alanis are clear without acute consolidation, effusion, or pneumothorax. Skeletal structures are intact. Impression: Right IJ line with tip in the SVC. No acute cardiopulmonary process appreciated. Electronically Signed by Shin Zarco MD 07/19/2019 04:36 A
[2019-07-19] MEDS: HEPARIN SOD (PORCINE) 5000UNITS/ML VIAL (J1644 PER 1000UNITS) SC SCH ×3 (05:13→21:38)
[2019-07-19] MEDS: PIPERACILLIN/TAZOBACTAM SOD 3.375 GM in D5W MINI-BAG PLUS 50 ML IV SCH ×4 (05:13→22:44)
[2019-07-19 05:40] LABS: AMORPHOUS SEDIMENT SMALL (NEGATIVE); APPEARANCE, URINE CLOUDY (CLEAR); BACTERIA, URINE AUTO 1+ (NEGATIVE); BILIRUBIN, URINE AUTO NEGATIVE (NEGATIVE); BLOOD, URINE BLOOD 1+ (NEGATIVE); COLOR, URINE YELLOW (YELLOW); GLUCOSE, URINE (UA) AUTO 3+ mg/dL (NEGATIVE); KETONE, URINE AUTO 2+ mg/dL (NEGATIVE); LEUKOCYTE ESTERASE, URINE AUTO NEGATIVE (NEGATIVE); MUCUS, URINE SMALL (NEGATIVE); NITRITE, URINE AUTO NEGATIVE (NEGATIVE); PROTEIN, URINE AUTO 1+ mg/dL (NEGATIVE); RBC, URINE AUTO 2 /HPF (0-3); SPECIFIC GRAVITY URINE AUTO 1.014 (1.002-1.035); SQUAMOUS EPITHELIAL CELL UR AU 0 /HPF (0-6); UROBILINOGEN, URINE AUTO 0.2 mg/dL (0.0-2.0); WBC, URINE AUTO 10 /HPF (0-3)
[2019-07-19] MEDS: PROMETHAZINE INJ 25 MG/ML VIAL (J2550) IV PRN (05:43)
[2019-07-19 06:26] LABS: BASO % 0.3 % (0.0-1.0); EOS % 0.1 % (0.0-3.0); HEMATOCRIT 29.2 % (36.0-47.0); HEMOGLOBIN 9.7 g/dl (12.0-15.5); LYMPH # 0.9 10^3/uL (1.5-5.0); LYMPH % 6.1 % (24.0-44.0); MEAN CORPUSCULAR HEMOGLOBIN 31.5 pg (27.0-33.0); MEAN CORPUSCULAR HGB CONC 33.2 g/dl (32.0-36.5); MEAN CORPUSCULAR VOLUME 94.8 fl (80.0-96.0); MONO % 6.8 % (0.0-5.0); NEUTROPHILS # 12.7 10^3/uL (1.5-8.5); NEUTROPHILS % 85.8 % (36.0-66.0); PLATELET COUNT, AUTOMATED 334 10^3/uL (150-450); RED BLOOD COUNT 3.08 10^6/uL (4.00-5.40); WHITE BLOOD COUNT 14.8 10^3/uL (4.0-10.0)
[2019-07-19 06:46] LABS: CALCIUM LEVEL 8.2 MG/DL (8.5-10.1); CREATININE FOR GFR 1.33 MG/DL (0.55-1.30); GLOMERULAR FILTRATION RATE 44.1 (>51); MAGNESIUM LEVEL 1.6 MG/DL (1.8-2.4); POTASSIUM SERUM 3.5 MEQ/L (3.5-5.1)
[2019-07-19] MEDS: ASPIRIN 81 MG ENTERIC TAB PO SCH (08:04)
[2019-07-19] MEDS: SUCRALFATE SUSP 1GM/10ML UD PO SCH ×4 (08:04→20:03)
[2019-07-19] MEDS: clonazePAM 1 MG TAB PO SCH ×3 (08:04→20:03)
[2019-07-19] MEDS: INSULIN REGULAR IN 0.9 % NACL 100 UNIT in IV 1 EA IV SCH ×4 (08:14→11:12)
[2019-07-19] MEDS ORDERED: PROCHLORPERAZINE 10MG/2ML VIAL (J0780 PER 1) IV PRN (08:30)
[2019-07-19 08:38] LABS: MAGNESIUM LEVEL 1.5 MG/DL (1.8-2.4)
[2019-07-19 08:41] LABS: CK-MB VALUE MASS 1.8 NG/ML (<3.6); CPK CREATINE PHOSPHOKINASE 90 U/L (26-192)
[2019-07-19 08:42] LABS: TROPONIN I < 0.02 NG/ML (< 0.10)
[2019-07-19] MEDS: ONDANSETRON 4MG/2ML VIAL IV SCH ×2 (08:45→12:09)
[2019-07-19] MEDS ORDERED: ATORVASTATIN 20 MG TAB PO SCH (09:00)
[2019-07-19] MEDS ORDERED: methocarbamoL 500 MG TAB PO SCH (09:00)
[2019-07-19] MEDS ORDERED: PREGABALIN 75 MG CAP(LYRICA) PO SCH (09:00)
[2019-07-19] MEDS ORDERED: FERROUS SULFATE 325MG TAB PO SCH (09:00)
[2019-07-19] MEDS ORDERED: MULTIVITAMINS/MINERALS THERAP 1 TAB PO SCH (09:00)
[2019-07-19] MEDS ORDERED: VITAMIN D 1,000 INTERNATIONAL UNITS TABLET PO SCH (09:00)
[2019-07-19] MEDS ORDERED: VARENICLINE 1 MG TABLET PO SCH (09:00)
[2019-07-19] MEDS ORDERED: FLUoxetine 20 MG CAP PO SCH (09:00)
--- NOTE | 2019-07-19 10:46 | IPNPDOC ---
Text Note Date of Service The patient was seen on 07/19/19. NOTE Subjective: Continues to have nausea and vomiting and retching. Has epigastric pain and also complains of acid reflux. Still able to tolerate PO. Physical Exam: - Vitals: As below - General: Sitting up in bed, appears to be nauseous, speaking in full sentences, AAOx3 - HEENT: NC, AT, PERRLA, EOMI - CVS: Tachycardic, +S1S2, no rub or gallop. - Lungs: Fair air entry bilaterally, No appreciable wheezing / rales / rhonchi - Abdomen: Soft, Non-distended,tender in giovanni epigastrium, bowel sounds sluggish. - Extremities: No lower extremity edema, No calf tenderness - Neuro: No focal motor or sensory deficit - Skin: No visible rashes Labs and radiology Reviewed Assessment and plan: Patient is a 53-year-old female with a PMHx of IDDM1, Gastroparesis, HTN, DLP, JERAD, Asthma, Hx of TIA, GERD s/p Gretchen Fundoplication / Celiac disease / Hx of Gastritis and bleed (2014), who presented to the hospital with nausea and vomiting that started 3 days prior. She was found to be in DKA. This is her 4th episode of DKA in 1 month. Has not had any DKAs in the past. Most recently admitted to the hospital on 07/13-07/14 for DKA. At that point, patient etiology DKA was unclear. Patient was evaluated for any septic source or any cardiac etiology, all of which was negative. She had full resolution of her symptoms and was discharged home with outpatient follow- up with her primary care provider, surgery and endocrinology. She has an apponintment with [facility] on 08/08 unfortunately a day after going home her symptoms again started. Diabetic ketoacidosis No cardiac ischemia. CXR clear, UA only 10 WBCs. Cultures have been ordered. Unlikely she has any infection. continue insulin drip and IV fluid hydration 5% dex/NS bicarb gtt till bicarb above 20 then will dc. labs q6 hours. Leukocytosis probably reactive to DKA. will rule out infection UA with reflex / Blood cultures / PCT Gastroparesis / Neuropathy c/w symptomatic control with Zofran and compazine. will hold oral meds till able to take po. Patient was scheduled to see her surgeon on 07/20 for an upper GI series and follow-up However, given the third recurrence of her DKA, will repeat upper GI series while inpatient HTN BP better controlled Currently not on any medications DLP hold statin till able to take po. JERAD May allow home CPAP use while inpatient Asthma No evidence of exacerbation c/w inhaled therapy as ordered Vitamin D deficiency Hold for now. Hx of TIA continue ASA, hold statin for now minimal oral meds till symptoms resolved. Anxiety / Depression c/w Clonazepam , hold fluoxetine GERD s/p Gretchen Fundoplication / Celiac disease / Hx of Gastritis and bleed (2014) Protonix IV DVT prophylaxis Heparin VS,Fishbone, I+O VS, Fishbone, I+O Laboratory Tests 07/18/19 21:28 07/18/19 22:33 07/19/19 06:02 Vital Signs Date Time Temp Pulse Resp B/P (MAP) Pulse Ox O2 Delivery O2 Flow Rate FiO2 07/19/19 08:00 109 19 147/65 (92) 98 Room Air 07/19/19 07:00 100.7 2.0 I&O- Last 24 Hours up to 6 AM0 07/19/19 06:00 Intake Total 2200.5 ml Output Total 550 ml Balance 1650.5 ml JUANITA JAEGER MD Jul 19, 2019 10:46
[2019-07-19] MEDS: MAG SULF 1GM/100ML (MAG RUN) 1 GM in IV 1 EA IV SCH ×3 (11:12→14:22)
[2019-07-19] MEDS: PANTOPRAZOLE 40MG VIAL (C9113 PER 1) IV SCH (11:27)
[2019-07-19 11:38] LABS: ACETONE/KETONE > 46.00 MG/DL (<2.81)
--- NOTE | 2019-07-19 11:58 | ECGEPIP ---
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
[2019-07-19 12:23] LABS: VENOUS BASE EXCESS -0.5 (-2.0-2.0); VENOUS HCO3 22.4 MEQ/L (23.0-27.0); VENOUS O2 SATURATION 99.2 % (60.0-80.0); VENOUS PARTIAL PRESSURE CO2 30.6 mmHg (38.0-50.0); VENOUS PARTIAL PRESSURE O2 148.6 mmHg (30.0-50.0); VENOUS PH 7.482 UNITS (7.330-7.430); VENOUS STANDARD HCO3 24.1 MEQ/L; VENOUS TOTAL CO2 23.3 MEQ/L (24.0-28.0)
[2019-07-19 12:56] LABS: CALCIUM LEVEL 8.1 MG/DL (8.5-10.1); CREATININE FOR GFR 1.28 MG/DL (0.55-1.30); GLOMERULAR FILTRATION RATE 46.1 (>51); MAGNESIUM LEVEL 1.6 MG/DL (1.8-2.4); POTASSIUM SERUM 3.2 MEQ/L (3.5-5.1)
[2019-07-19] MEDS: KCL 40MEQ IN D5/0.45NS 1000ML 1,000 ML IV SCH (14:20)
[2019-07-19] MEDS: METOCLOPRAMIDE INJ 10MG/2ML VIAL (J2765 PER 1) IV SCH (17:21)
[2019-07-19 18:33] LABS: VENOUS BASE EXCESS 1.3 (-2.0-2.0); VENOUS HCO3 24.9 MEQ/L (23.0-27.0); VENOUS O2 SATURATION 98.9 % (60.0-80.0); VENOUS PARTIAL PRESSURE CO2 35.7 mmHg (38.0-50.0); VENOUS PARTIAL PRESSURE O2 137.3 mmHg (30.0-50.0); VENOUS PH 7.462 UNITS (7.330-7.430); VENOUS STANDARD HCO3 25.7 MEQ/L
[2019-07-19 19:00] LABS: CALCIUM LEVEL 7.8 MG/DL (8.5-10.1); CREATININE FOR GFR 1.34 MG/DL (0.55-1.30); GLOMERULAR FILTRATION RATE 43.7 (>51); MAGNESIUM LEVEL 2.3 MG/DL (1.8-2.4)
[2019-07-19] MEDS ORDERED: MOM 30ML SUSPENSION UDC PO PRN (21:15)
[2019-07-20] VITALS (8 sets, daily range): BP systolic 116–168; BP diastolic 60–79
[2019-07-20] MEDS: INSULIN IV RATE CHANGE DOCUMENTATION ML/HR XX SCH ×4 (00:09→05:03)
[2019-07-20] MEDS: METOCLOPRAMIDE INJ 10MG/2ML VIAL (J2765 PER 1) IV SCH ×5 (00:20→23:13)
[2019-07-20 00:38] LABS: VENOUS BASE EXCESS -2.6 (-2.0-2.0); VENOUS HCO3 21.9 MEQ/L (23.0-27.0); VENOUS O2 SATURATION 97.5 % (60.0-80.0); VENOUS PARTIAL PRESSURE CO2 36.6 mmHg (38.0-50.0); VENOUS PARTIAL PRESSURE O2 102.7 mmHg (30.0-50.0); VENOUS PH 7.394 UNITS (7.330-7.430); VENOUS STANDARD HCO3 22.3 MEQ/L
[2019-07-20 01:09] LABS: CALCIUM LEVEL 7.7 MG/DL (8.5-10.1); CREATININE FOR GFR 1.26 MG/DL (0.55-1.30); GLOMERULAR FILTRATION RATE 46.9 (>51); MAGNESIUM LEVEL 2.3 MG/DL (1.8-2.4)
[2019-07-20] MEDS: KCL 40MEQ IN D5/0.45NS 1000ML 1,000 ML IV SCH ×2 (01:27→04:46)
[2019-07-20] MEDS: KCL 20MEQ IN 100ML SWI (KRUN) 20 MEQ in IV 1 EA IV SCH ×4 (01:53→03:09)
[2019-07-20] MEDS: PIPERACILLIN/TAZOBACTAM SOD 3.375 GM in D5W MINI-BAG PLUS 50 ML IV SCH ×4 (04:46→23:13)
[2019-07-20] MEDS: HEPARIN SOD (PORCINE) 5000UNITS/ML VIAL (J1644 PER 1000UNITS) SC SCH ×3 (06:05→23:13)
[2019-07-20 06:29] LABS: VENOUS BASE EXCESS 1.3 (-2.0-2.0); VENOUS HCO3 26.3 MEQ/L (23.0-27.0); VENOUS O2 SATURATION 97.3 % (60.0-80.0); VENOUS PARTIAL PRESSURE CO2 43.7 mmHg (38.0-50.0); VENOUS PARTIAL PRESSURE O2 93.5 mmHg (30.0-50.0); VENOUS PH 7.398 UNITS (7.330-7.430); VENOUS STANDARD HCO3 25.6 MEQ/L; VENOUS TOTAL CO2 27.7 MEQ/L (24.0-28.0)
[2019-07-20 06:39] LABS: BASO # 0.1 10^3/uL (0.0-0.2); BASO % 0.7 % (0.0-1.0); EOS # 0.3 10^3/uL (0.0-0.5); EOS % 3.3 % (0.0-3.0); HEMATOCRIT 27.3 % (36.0-47.0); HEMOGLOBIN 9.3 g/dl (12.0-15.5); LYMPH # 2.3 10^3/uL (1.5-5.0); LYMPH % 31.1 % (24.0-44.0); MEAN CORPUSCULAR HEMOGLOBIN 32.1 pg (27.0-33.0); MEAN CORPUSCULAR HGB CONC 34.1 g/dl (32.0-36.5); MEAN CORPUSCULAR VOLUME 94.1 fl (80.0-96.0); MONO # 0.5 10^3/uL (0.0-0.8); MONO % 6.2 % (0.0-5.0); NEUTROPHILS # 4.4 10^3/uL (1.5-8.5); NEUTROPHILS % 58.2 % (36.0-66.0); PLATELET COUNT, AUTOMATED 281 10^3/uL (150-450); WHITE BLOOD COUNT 7.5 10^3/uL (4.0-10.0)
[2019-07-20 07:00] LABS: ACETONE/KETONE 3.07 MG/DL (<2.81); CALCIUM LEVEL 7.5 MG/DL (8.5-10.1); CREATININE FOR GFR 1.23 MG/DL (0.55-1.30); GLOMERULAR FILTRATION RATE 48.3 (>51); MAGNESIUM LEVEL 2.3 MG/DL (1.8-2.4); POTASSIUM SERUM 3.4 MEQ/L (3.5-5.1)
[2019-07-20] MEDS: CALCIUM CARBONATE 500 MG CHEW U/D PO PRN ×2 (07:33→14:29)
[2019-07-20] MEDS: SUCRALFATE SUSP 1GM/10ML UD PO SCH ×4 (07:33→20:01)
[2019-07-20] MEDS: ONDANSETRON 4MG/2ML VIAL IV PRN ×2 (08:27→20:01)
[2019-07-20] MEDS ORDERED: LEVEMIR (INSULIN DETEMIR) 1 UNITS/0.01ML SC SCH (09:00)
[2019-07-20] MEDS: clonazePAM 1 MG TAB PO SCH ×3 (09:00→20:01)
[2019-07-20] MEDS: ASPIRIN 81 MG ENTERIC TAB PO SCH (09:00)
[2019-07-20] MEDS ORDERED: HumaLOG INSULIN (NovoLOG) PER UNIT SC ONE (09:30)
[2019-07-20] MEDS ORDERED: E-Z-PAQUE 96% w/w SUSP 176GM BTL As Ordered ONE (10:12)
[2019-07-20] MEDS ORDERED: E-Z-HD 98% w/w 340GM SUSP BTL As Ordered ONE (10:13)
[2019-07-20] MEDS ORDERED: E-Z-GAS II EFFERVESCENT PACKET (SODIUM BICARB./CITRIC ACID/SIMETHICONE) As Ordered ONE (10:13)
--- NOTE | 2019-07-20 12:46 | IPNPDOC ---
Text Note Date of Service The patient was seen on 07/20/19. NOTE Subjective: Continues to have nausea and vomiting and retching. Has epigastric pain also. DKA has resolved but still unable to take much PO. Will get an upper gi series today. Physical Exam: - Vitals: As below - General: Sitting up in bed, appears to be nauseous, speaking in full sentences, AAOx3 - HEENT: NC, AT, PERRLA, EOMI - CVS: Tachycardic, +S1S2, no rub or gallop. - Lungs: Fair air entry bilaterally, No appreciable wheezing / rales / rhonchi - Abdomen: Soft, Non-distended,tender in giovanni epigastrium, bowel sounds sluggish. - Extremities: No lower extremity edema, No calf tenderness - Neuro: No focal motor or sensory deficit - Skin: No visible rashes Labs and radiology Reviewed Assessment and plan: Patient is a 53-year-old female with a PMHx of ID DM1, Gastroparesis, HTN, DLP, JERAD, Asthma, Hx of TIA, GERD s/p Gretchen Fundoplication / Celiac disease / Hx of Gastritis and bleed (2014), who presented to the hospital with nausea and vomiting that started 3 days prior. She was found to be in DKA. This is her 4th episode of DKA in 1 month. Has not h ad any DKAs in the past. Most recently admitted to the hospital on 07/13-07/14 for DKA. At that point, patient etiology DKA was unclear. Patient was evaluated for any septic source or any cardiac etiology, all of which was negative. She had full resolution of her symptoms and was discharged home with outpatient follow- up with her primary care provider, surgery and endocrinology. She has an apponintment with [facility] on 08/08 unfortunately a day after going home her symptoms again started. Diabetic ketoacidosis resolved will start on clear liquids Levemir and lipro sub cut. Persistent nausea and vomiting Has gastroparesis. will check upper GI series. Leukocytosis probably reactive to DKA. will rule out infection Urine and blood cultures negative till date Procalcitonin> 2.0 will continue zosyn Gastroparesis / Neuropathy c/w symptomatic control with Zofran and reglan. will hold oral meds till able to take po. Patient was scheduled to see her surgeon on 07/20 for an upper GI series and follow-up However, given the 4th recurrence of her DKA, will repeat upper GI series while inpatient HTN BP better controlled Currently not on any medications DLP hold statin till able to take po. JERAD May allow home CPAP use while inpatient Asthma No evidence of exacerbation c/w inhaled therapy as ordered Vitamin D deficiency Hold for now. Hx of TIA continue ASA, hold statin for now minimal oral meds till symptoms resolved. Anxiety / Depression c/w Clonazepam , hold fluoxetine GERD s/p Gretchen Fundoplication / Celiac disease / Hx of Gastritis and bleed (2014) Protonix IV DVT prophylaxis Heparin VS,Fishbone, I+O VS, Fishbone, I+O Laboratory Tests 07/19/19 18:12 07/20/19 00:00 07/20/19 06:15 Vital Signs Date Time Temp Pulse Resp B/P (MAP) Pulse Ox O2 Delivery O2 Flow Rate FiO2 07/20/19 08:00 97.1 96 17 140/64 (89) 98 Room Air 07/19/19 07:00 2.0 I&O- Last 24 Hours up to 6 AM 07/20/19 06:00 Intake Total 3017.6 ml Output Total 350 ml Balance 2667.6 ml JUANITA JAEGER MD Jul 20, 2019 12:46
[2019-07-20] MEDS: PANTOPRAZOLE 40MG VIAL (C9113 PER 1) IV SCH (14:12)
[2019-07-20] MEDS: HumaLOG INSULIN (NovoLOG) PER UNIT SC SCH ×3 (14:54→21:00)
[2019-07-20 15:27] LABS: CALCIUM LEVEL 8.3 MG/DL (8.5-10.1); CREATININE FOR GFR 1.38 MG/DL (0.55-1.30); GLOMERULAR FILTRATION RATE 42.3 (>51); POTASSIUM SERUM 4.5 MEQ/L (3.5-5.1)
[2019-07-20] MEDS ORDERED: NS 1,000 ML IV SCH (15:45)
[2019-07-20 16:08] LABS: H PYLORI SERUM QUANT IGM <9.0 units (0.0-8.9); H PYLORI SERUM QUANT IgG ABY 0.27 (0.00-0.79)
[2019-07-20 20:41] LABS: BLOOD UREA NITROGEN 8 MG/DL (7-18); CALCIUM LEVEL 8.1 MG/DL (8.5-10.1); CARBON DIOXIDE LEVEL 27 MEQ/L (21-32); CHLORIDE LEVEL 110 MEQ/L (98-107); CREATININE FOR GFR 1.01 MG/DL (0.55-1.30); GLOMERULAR FILTRATION RATE > 60.0 (>51); GLUCOSE, FASTING 53 MG/DL (70-100); POTASSIUM SERUM 3.6 MEQ/L (3.5-5.1); SODIUM LEVEL 143 MEQ/L (136-145)
[2019-07-20] MEDS: LEVEMIR (INSULIN DETEMIR) 1 UNITS/0.01ML SC SCH (21:00)
[2019-07-20] MEDS: RAMELTEON 8 MG TAB (ROZEREM) PO SCH (23:13)
[2019-07-21 01:30] VITALS: BP 135/86
[2019-07-21] MEDS: ONDANSETRON 4MG/2ML VIAL IV PRN ×3 (02:11→21:03)
[2019-07-21] MEDS: CALCIUM CARBONATE 500 MG CHEW U/D PO PRN ×4 (02:12→21:03)
[2019-07-21] MEDS ORDERED: SODIUM CHLORIDE 0.9% INJ 10 ML SYR IV PRN (05:30)
[2019-07-21] MEDS: PIPERACILLIN/TAZOBACTAM SOD 3.375 GM in D5W MINI-BAG PLUS 50 ML IV SCH ×4 (05:49→23:36)
[2019-07-21] MEDS: METOCLOPRAMIDE INJ 10MG/2ML VIAL (J2765 PER 1) IV SCH ×3 (05:49→17:39)
[2019-07-21] MEDS: SODIUM CHLORIDE 0.9% INJ 10 ML SYR IV SCH ×3 (05:50→21:10)
[2019-07-21] MEDS: HEPARIN SOD (PORCINE) 5000UNITS/ML VIAL (J1644 PER 1000UNITS) SC SCH ×3 (05:50→21:10)
[2019-07-21 06:00] VITALS: BP 135/85
[2019-07-21 06:11] LABS: BASO # 0.1 10^3/uL (0.0-0.2); BASO % 1.2 % (0.0-1.0); EOS # 0.2 10^3/uL (0.0-0.5); EOS % 3.9 % (0.0-3.0); HEMATOCRIT 30.1 % (36.0-47.0); HEMOGLOBIN 10.1 g/dl (12.0-15.5); LYMPH # 1.6 10^3/uL (1.5-5.0); LYMPH % 32.6 % (24.0-44.0); MEAN CORPUSCULAR HEMOGLOBIN 32.2 pg (27.0-33.0); MEAN CORPUSCULAR HGB CONC 33.6 g/dl (32.0-36.5); MEAN CORPUSCULAR VOLUME 95.9 fl (80.0-96.0); MONO # 0.3 10^3/uL (0.0-0.8); MONO % 6.4 % (0.0-5.0); NEUTROPHILS # 2.7 10^3/uL (1.5-8.5); NEUTROPHILS % 55.3 % (36.0-66.0); PLATELET COUNT, AUTOMATED 280 10^3/uL (150-450); RED BLOOD COUNT 3.14 10^6/uL (4.00-5.40); WHITE BLOOD COUNT 4.8 10^3/uL (4.0-10.0)
[2019-07-21 06:41] LABS: CALCIUM LEVEL 7.9 MG/DL (8.5-10.1); CREATININE FOR GFR 1.15 MG/DL (0.55-1.30); GLOMERULAR FILTRATION RATE 52.2 (>51); POTASSIUM SERUM 4.9 MEQ/L (3.5-5.1)
[2019-07-21] MEDS: SUCRALFATE SUSP 1GM/10ML UD PO SCH ×4 (06:55→21:03)
[2019-07-21] MEDS: LEVEMIR (INSULIN DETEMIR) 1 UNITS/0.01ML SC SCH ×2 (09:09→21:04)
[2019-07-21] MEDS: ASPIRIN 81 MG ENTERIC TAB PO SCH (09:10)
[2019-07-21] MEDS: HumaLOG INSULIN (NovoLOG) PER UNIT SC SCH ×4 (09:10→21:00)
[2019-07-21] MEDS: clonazePAM 1 MG TAB PO SCH ×3 (09:10→21:03)
--- NOTE | 2019-07-21 11:10 | IPNPDOC ---
Subjective Date Seen The patient was seen on 07/21/19. Subjective Chief Complaint/HPI Patient is still has some nausea and dry heaves but no other complaints General: Denies: ROS Unobtainable, Chills, Night Sweats, Fatigue, Malaise, Normal Appetite, Other Symptoms Constitutional: Denies: Chills, Fever, Malaise, Night Sweats, Weakness, Fatigue, Weight Loss, Lethargy, Other Eyes: Denies: Pain, Vision change, Conjunctivae inflammation, Eyelid inflammation, Redness, Other ENT: Denies: Head Aches, Ear Pain, Dysphagia, Sinus Congestion, Post Nasal Drip, Sore Throat, Epistaxis, Other Symptoms Skin: Denies: Rash, Lesions, Jaundice, Bruising, Itching, Dry, Breakdown, Nail Changes, Other Pulmonary: Denies: Dyspnea, Cough, Pleuritic Chest Pain, Other Symptoms Cardiovascular: Denies: Chest Pain, Palpitations, Orthopnea, Paroxysmal Noc. Dyspnea, Edema, Lt Headedness, Other Symptoms Gastrointestinal: Reports: Nausea Genitourinary: Denies: Dysuria, Frequency, Incontinence, Hematuria, Retention, Other Symptoms Hematologic: Denies: Bruising, Bleeding Excessively, Petecchia, Purpura, Enlarged Lymph Nodes, Other Hematologic Endocrine: Denies: Polydipsia, Polyphagia, Polyuria, Heat Intolerance, Cold Intolerance, Other Endocrine Sx Musculoskeletal: Denies: Neck Pain, Back Pain, Shoulder Pain, Arm Pain, Hand Pain, Leg Pain, Foot Pain, Joint Pain, Muscle Pain, Spasms, Other Symptoms Neurological: Denies: Weakness, Numbness, Incoordination, Change in speech, Confusion, Seizures, Other Symptoms Psych: Denies: Mood Normal, Anxiety, Depression, Memory Issues, Thoughts of Self Harm, Anger, Thoughts of Harming Other, Other Psych Objective Physical Examination General Exam: Positive: Alert, Cooperative Eye Exam: Positive: PERRLA, Conjunctiva & lids normal ENT Exam: Positive: Atraumatic Neck Exam: Positive: Supple Chest Exam: Positive: Normal air movement Heart Exam: Positive: Rate Normal, Normal S1, Normal S2 Abdomen Exam: Positive: Normal bowel sounds, Soft Extremity Exam: Positive: Normal pulses Skin Exam: Positive: Nl turgor and temperature Neuro Exam: Positive: Strength at 5/5 X4 ext, Normal Tone, Cranial Nerves 3-12 NL Psych Exam: Positive: Mood NL, Oriented x 3 Assessment /Plan Problems (1) DKA (diabetic ketoacidoses) Status: Acute Problem Text: Patient is a 53-year-old female with a PMHx of IDDM1, Gastroparesis, HTN, DLP, JERAD, Asthma, Hx of TIA, GERD s/p Gretchen Fundoplication / Celiac disease / Hx of Gastritis and bleed (2014), who presented to the hospital with nausea and vomiting that started 3 days prior. She was found to be in DKA. This is her 4th episode of DKA in 1 month. Has not had any DKAs in the past. Most recently admitted to the hospital on 07/13-07/14 for DKA. At that point, patient etiology DKA was unclear. Patient was evaluated for any septic source or any cardiac etiology, all of which was negative. She had full resolution of her symptoms and was discharged home with outpatient follow-up with her primary care provider, surgery and endocrinology. She has an apponintment with [facility] on 08/08 unfortunately a day after going home her symptoms again started. Diabetic ketoacidosis, resolved Patient is not consistent carbohydrate diet Levemir and lipro sub cut. Patient needs to follow with diabetic center at [place] as soon as possible when she is discharged Continue all present meds Ambulate as tolerated (2) GERD (gastroesophageal reflux disease) Status: Chronic Problem Text: Persistent nausea and vomiting , Most likely secondary to gastroparesis Upper GI series was done, report is pending Continue present meds (3) JERAD (obstructive sleep apnea) Status: Chronic Problem Text: , History of JERAD Continue CPAP from home (4) CKD (chronic kidney disease) Status: Chronic Problem Text: Secondary to diabetes mellitus Continue monitoring renal function (5) HTN (hypertension) Status: Chronic Problem Text: Continue present meds (6) Gastroparesis due to DM Status: Chronic Problem Text: Gastroparesis / Neuropathy c/w symptomatic control with Zofran and reglan. will hold oral meds till able to take po. Patient was scheduled to see her surgeon on 07/20 for an upper GI series and follow-up However, given the 4th recurrence of her DKA, will repeat upper GI series while inpatient Plan/VTE VTE Prophylaxis Ordered?: Yes VS, I&O, 24H, Fishbone Vital Signs/I&O Vital Signs Date Time Temp Pulse Resp B/P (MAP) Pulse Ox O2 Delivery O2 Flow Rate FiO2 07/21/19 06:00 98.6 83 18 135/85 (102) 97 Room Air 07/19/19 07:00 2.0 I&O- Last 24 Hours up to 6 AM 07/21/19 06:00 Intake Total 2904.1 ml Output Total 1350 ml Balance 1554.1 ml Laboratory Data 24H LABS Laboratory Tests 2 07/20/19 13:35: Bedside Glucose (Misc Panel) 206H 07/20/19 14:38: Anion Gap 12, Glomerular Filtration Rate 42.3L, Calcium Level 8.3L 07/20/19 16:35: Bedside Glucose (Misc Panel) 167H 07/20/19 19:51: Bedside Glucose (Misc Panel) 76 07/20/19 20:00: Anion Gap 6L, Glomerular Filtration Rate > 60.0, Calcium Level 8.1L 07/20/19 23:16: Bedside Glucose (Misc Panel) 70 07/21/19 05:48: Anion Gap 7L, Glomerular Filtration Rate 52.2, Calcium Level 7.9L, Immature Granulocyte % (Auto) 0.6, Neutrophils (%) (Auto) 55.3, Lymphocytes (%) (Auto) 32.6, Monocytes (%) (Auto) 6.4H, Eosinophils (%) (Auto) 3.9H, Basophils (%) (Auto) 1.2H, Neutrophils # (Auto) 2.7, Lymphocytes # (Auto) 1.6, Monocytes # (Auto) 0.3, Eosinophils # (Auto) 0.2, Basophils # (Auto) 0.1, Nucleated Red Blood Cells % (auto) 0.0, Magnesium Level 2.0 CBC/BMP Laboratory Tests 07/20/19 14:38 07/20/19 20:00 07/21/19 05:48 Microbiology Microbiology 07/19/19 Urine Culture - Final, Complete 07/19/19 Blood Culture - Preliminary, Resulted No Growth after 48 hours. All Specime... 07/18/19 Blood Culture - Preliminary, Resulted No Growth after 48 hours. All Specime... GERI CHANG MD Jul 21, 2019 11:10
[2019-07-21] MEDS: PANTOPRAZOLE 40MG VIAL (C9113 PER 1) IV SCH (11:54)
[2019-07-21 14:32] VITALS: BP 124/69
[2019-07-21] MEDS: RAMELTEON 8 MG TAB (ROZEREM) PO SCH (21:03)
--- NOTE | 2019-07-21 21:35 | REP ---
UPPER GI AIR CONTRAST AND SMALL BOWEL FOLLOW THROUGH The procedure was performed under the direct supervision of Dr. Maneul. The images were reviewed with Dr. Manuel The fleet service clerk film shows no organomegaly or pathological masses. The intestinal gas pattern is non-specific. There are surgical clips noted in the right upper quadrant. Liquid barium was given in the erect and prone oblique positions in order to perform a single contrast upper GI examination. Additionally liquid barium was given at the end of the examination in order to perform a small bowel follow-through. The oral and pharyngeal stages of deglutition are unremarkable. Within the esophagus there are multiple linear ulcerations with a irregular mucosa. These are new findings compared to a previous study performed on 06/21/2019. There is no stricture identified. There is a sliding type hiatal hernia. There is significant gastroesophageal reflux demonstrated to the level of the thoracic inlet. These findings are consistent with reflux esophagitis, however, early malignancy cannot be ruled out. Recommend endoscopy for further evaluation. There are postsurgical changes of the stomach consistent with the patient's history of gastric sleeve. The stomach is grossly normal. There is no evidence of gastritis neoplasm or ulcer disease. The duodenal shrestha are normally outlined . The mucosal folds are smooth and regular. There is no duodenitis pancreatitis peptic ulcer disease or neoplasm. The visualized portion of the proximal small bowel appears normal in course and caliber. The barium column was followed through the small bowel to the level of the terminal ileum. Small bowel transit time is approximately 2 hours . During fluoroscopy gentle palpation shows all loops are freely movable and pliable. There are no fixed or angulated loops. The small bowel mucosal pattern is normal in course and caliber. There is no transition to suggest a partial small-bowel obstruction. Spot filming of the terminal ileum shows it to be unremarkable. Impression: There are multiple linear ulcerations in the esophagus with irregular mucosa. These are new findings compared to a previous study performed on 06/21/2019. There is a sliding type hiatal hernia. There is gastroesophageal reflux demonstrated to the level of the thoracic inlet. These findings are consistent with reflux esophagitis, however, early malignancy cannot be ruled out. Recommend endoscopy for further evaluation. 3.5 minutes of fluoro time was utilized for this procedure. Electronically Signed by SARAH Clemens 07/20/2019 04:06 P Electronically Signed by Ahsan Manuel MD 07/21/2019 09:27 P
[2019-07-22] MEDS: METOCLOPRAMIDE INJ 10MG/2ML VIAL (J2765 PER 1) IV SCH ×5 (00:37→23:55)
[2019-07-22] MEDS: SODIUM CHLORIDE 0.9% INJ 10 ML SYR IV SCH ×3 (05:41→21:10)
[2019-07-22] MEDS: HEPARIN SOD (PORCINE) 5000UNITS/ML VIAL (J1644 PER 1000UNITS) SC SCH ×3 (05:41→21:10)
[2019-07-22] MEDS: PIPERACILLIN/TAZOBACTAM SOD 3.375 GM in D5W MINI-BAG PLUS 50 ML IV SCH (05:41)
[2019-07-22 05:58] LABS: BASO # 0.1 10^3/uL (0.0-0.2); BASO % 1.1 % (0.0-1.0); EOS # 0.2 10^3/uL (0.0-0.5); EOS % 4.1 % (0.0-3.0); HEMATOCRIT 29.9 % (36.0-47.0); LYMPH # 2.2 10^3/uL (1.5-5.0); LYMPH % 41.1 % (24.0-44.0); MEAN CORPUSCULAR HEMOGLOBIN 31.9 pg (27.0-33.0); MEAN CORPUSCULAR HGB CONC 33.4 g/dl (32.0-36.5); MEAN CORPUSCULAR VOLUME 95.5 fl (80.0-96.0); MONO # 0.3 10^3/uL (0.0-0.8); MONO % 6.3 % (0.0-5.0); NEUTROPHILS # 2.6 10^3/uL (1.5-8.5); PLATELET COUNT, AUTOMATED 284 10^3/uL (150-450); RED BLOOD COUNT 3.13 10^6/uL (4.00-5.40); WHITE BLOOD COUNT 5.4 10^3/uL (4.0-10.0)
[2019-07-22 06:00] VITALS: BP 91/51
[2019-07-22 06:24] LABS: ALBUMIN 2.1 GM/DL (3.2-5.2); ALT/SGPT 28 U/L (12-78); BILIRUBIN,TOTAL 0.5 MG/DL (0.2-1.0); BLOOD UREA NITROGEN 14 MG/DL (7-18); CALCIUM LEVEL 8.4 MG/DL (8.5-10.1); CARBON DIOXIDE LEVEL 29 MEQ/L (21-32); CHLORIDE LEVEL 106 MEQ/L (98-107); CREATININE FOR GFR 0.98 MG/DL (0.55-1.30); GLOMERULAR FILTRATION RATE > 60.0 (>51); GLUCOSE, FASTING 40 MG/DL (70-100); POTASSIUM SERUM 3.5 MEQ/L (3.5-5.1); SODIUM LEVEL 140 MEQ/L (136-145); TOTAL PROTEIN 4.9 GM/DL (6.4-8.2)
[2019-07-22] MEDS: HumaLOG INSULIN (NovoLOG) PER UNIT SC SCH ×4 (07:30→21:00)
[2019-07-22 08:12] VITALS: BP 140/82
[2019-07-22] MEDS: ASPIRIN 81 MG ENTERIC TAB PO SCH (08:13)
[2019-07-22] MEDS: LEVEMIR (INSULIN DETEMIR) 1 UNITS/0.01ML SC SCH ×2 (08:13→21:00)
[2019-07-22] MEDS: clonazePAM 1 MG TAB PO SCH ×3 (08:13→21:10)
[2019-07-22] MEDS: SUCRALFATE SUSP 1GM/10ML UD PO SCH ×4 (08:13→21:10)
--- NOTE | 2019-07-22 12:03 | IPNPDOC ---
Subjective Date Seen The patient was seen on 07/22/19. Subjective Chief Complaint/HPI Patient has a minimum nausea today feeling much better General: Denies: ROS Unobtainable, Chills, Night Sweats, Fatigue, Malaise, Normal Appetite, Other Symptoms Constitutional: Denies: Chills, Fever, Malaise, Night Sweats, Weakness, Fatigue, Weight Loss, Lethargy, Other Pulmonary: Denies: Dyspnea, Cough, Pleuritic Chest Pain, Other Symptoms Cardiovascular: Denies: Chest Pain, Palpitations, Orthopnea, Paroxysmal Noc. Dyspnea, Edema, Lt Headedness, Other Symptoms Gastrointestinal: Denies: Nausea, Vomiting, Abdominal Pain, Diarrhea, Constipation, Melena, Hematochezia, Other Symptoms Musculoskeletal: Denies: Neck Pain, Back Pain, Shoulder Pain, Arm Pain, Hand Pain, Leg Pain, Foot Pain, Joint Pain, Muscle Pain, Spasms, Other Symptoms Neurological: Denies: Weakness, Numbness, Incoordination, Change in speech, Confusion, Seizures, Other Symptoms Objective Physical Examination General Exam: Positive: Alert, Cooperative Eye Exam: Positive: PERRLA, Conjunctiva & lids normal ENT Exam: Positive: Atraumatic Neck Exam: Positive: Supple Chest Exam: Positive: Normal air movement Heart Exam: Positive: Rate Normal, Normal S1, Normal S2 Abdomen Exam: Positive: Normal bowel sounds, Soft Extremity Exam: Positive: Normal pulses Skin Exam: Positive: Nl turgor and temperature Neuro Exam: Positive: Strength at 5/5 X4 ext, Normal Tone, Cranial Nerves 3-12 NL Psych Exam: Positive: Mood NL, Oriented x 3 Assessment /Plan Problems (1) DKA (diabetic ketoacidoses) Status: Acute Problem Text: Patient is a 53-year-old female with a PMHx of IDDM1, Gastroparesis, HTN, DLP, JERAD, Asthma, Hx of TIA, GERD s/p Gretchen Fundoplication / Celiac disease / Hx of Gastritis and bleed (2014), who presented to the hospital with nausea and vomiting that started 3 days prior. She was found to be in DKA. This is her 4th episode of DKA in 1 month. Has not had any DKAs in the past. Most recently admitted to the hospital on 07/13-07/14 for DKA. At that point, patient etiology DKA was unclear. Patient was evaluated for any septic source or any cardiac etiology, all of which was negative. She had full resolution of her symptoms and was discharged home with outpatient follow-up with her primary care provider, surgery and endocrinology. She has an apponintment with [facility] on 08/08 unfortunately a day after going home her symptoms again started. Diabetic ketoacidosis, resolved Patient is not consistent carbohydrate diet Will decrease Levemir to 8 units subcutaneous twice a day as patient's fingerstick has been in the lower levels in the morning Patient needs to follow with [facility] [place] sees is scheduled to see them at and of this month Patient was encouraged to start ambulating frequently as possible (2) GERD (gastroesophageal reflux disease) Status: Chronic Problem Text: Patient's nausea has decreased slightly, secondary to diabetic gastroparesis and the reflex esophagitis Upper GI series done: There are multiple linear ulcerations in the esophagus with irregular mucosa. These are new findings compared to a previous study performed on 06/21/2019. There is a sliding type hiatal hernia. There is gastroesophageal reflux demonstrated to the level of the thoracic inlet. These findings are consistent with reflux esophagitis, however, early malignancy cannot be ruled out. Recommend endoscopy for further evaluation. Patient already had EGD done last month which showed: Impression: - LA Grade D reflux esophagitis. Rule out Ren's esophagus. Biopsied. - Medium-sized hiatal hernia. 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 Dilated. - Normal ampulla, duodenal bulb, second portion of the duodenum and area of the papilla. And Dr. Gardner had recommended the following instructions: - Patient has a contact number available for emergencies. The signs and symptoms of potential delayed complications were discussed with the patient. Return to normal activities tomorrow. Written discharge instructions were provided to the patient. - [facility] care. - Clear liquid diet for 1 day, then advance as tolerated to gastroparesis diet. - Use Protonix (pantoprazole) 40 mg PO twice daily - to be taken in morning (1/2 hour before breakfast) and at bedtime ( atleast 3 hours after last meal) for 3 months. - Use sucralfate suspension 1 gram PO QID for 6 weeks. - Repeat upper endoscopy in 3 months to check healing. - Telephone GI clinic for pathology results in 2 weeks. - Return to GI clinic in [facility] (address [address], [address], [place], [place]) in 4 -- 6 weeks. Please call GI clinic @ [phone] for apppointment date and time. - Return to primary care physician. (3) JERAD (obstructive sleep apnea) Status: Chronic Problem Text: , History of JERAD Continue CPAP from home (4) CKD (chronic kidney disease) Status: Chronic Problem Text: Secondary to diabetes mellitus Continue monitoring renal function (5) HTN (hypertension) Status: Chronic Problem Text: Continue present meds (6) Gastroparesis due to DM Status: Chronic Problem Text: Gastroparesis / Neuropathy c/w symptomatic control with Zofran and reglan. Plan/VTE VTE Prophylaxis Ordered?: Yes VS, I&O, 24H, Fishbone Vital Signs/I&O Vital Signs Date Time Temp Pulse Resp B/P (MAP) Pulse Ox O2 Delivery O2 Flow Rate FiO2 07/22/19 08:12 140/82 (101) 07/22/19 06:00 97.7 87 18 93 Room Air 07/19/19 07:00 2.0 I&O- Last 24 Hours up to 6 AM 07/22/19 06:00 Intake Total 1670 ml Output Total 1200 ml Balance 470 ml Laboratory Data 24H LABS Laboratory Tests 2 07/21/19 16:52: Bedside Glucose (Misc Panel) 90 07/21/19 21:33: Bedside Glucose (Misc Panel) 88 07/22/19 05:37: Immature Granulocyte % (Auto) 0.4, Neutrophils (%) (Auto) 47.0, Lymphocytes (%) (Auto) 41.1, Monocytes (%) (Auto) 6.3H, Eosinophils (%) (Auto) 4.1H, Basophils (%) (Auto) 1.1H, Neutrophils # (Auto) 2.6, Lymphocytes # (Auto) 2.2, Monocytes # (Auto) 0.3, Eosinophils # (Auto) 0.2, Basophils # (Auto) 0.1, Nucleated Red Blood Cells % (auto) 0.0, Anion Gap 5L, Glomerular Filtration Rate > 60.0, Calcium Level 8.4L, Magnesium Level 2.0, Total Bilirubin 0.5, Aspartate Amino Transf (AST/SGOT) 58H, Alanine Aminotransferase (ALT/SGPT) 28, Alkaline Phosphatase 78, Total Protein 4.9L, Albumin 2.1L, Albumin/Globulin Ratio 0.8L 07/22/19 07:17: Bedside Glucose (Misc Panel) 141H 07/22/19 11:37: Bedside Glucose (Misc Panel) 203H CBC/BMP Laboratory Tests 07/22/19 05:37 Microbiology Microbiology 07/19/19 Urine Culture - Final, Complete 07/19/19 Blood Culture - Preliminary, Resulted No Growth after 72 hours. All specime... 07/18/19 Blood Culture - Preliminary, Resulted No Growth after 72 hours. All specime... GERI CHANG MD Jul 22, 2019 12:03
[2019-07-22] MEDS: PANTOPRAZOLE 40MG VIAL (C9113 PER 1) IV SCH (12:23)
[2019-07-22 14:04] VITALS: BP 133/78
[2019-07-22] MEDS: ONDANSETRON 4MG/2ML VIAL IV PRN (17:11)
[2019-07-22 20:00] VITALS: BP 131/80
[2019-07-22] MEDS: RAMELTEON 8 MG TAB (ROZEREM) PO SCH (21:10)
[2019-07-23 05:31] VITALS: BP 131/79
[2019-07-23] MEDS: SODIUM CHLORIDE 0.9% INJ 10 ML SYR IV SCH ×3 (05:56→21:11)
[2019-07-23] MEDS: HEPARIN SOD (PORCINE) 5000UNITS/ML VIAL (J1644 PER 1000UNITS) SC SCH ×3 (05:56→21:12)
[2019-07-23] MEDS: METOCLOPRAMIDE INJ 10MG/2ML VIAL (J2765 PER 1) IV SCH ×3 (05:56→18:03)
[2019-07-23 06:17] LABS: BASO # 0.1 10^3/uL (0.0-0.2); BASO % 1.3 % (0.0-1.0); EOS # 0.2 10^3/uL (0.0-0.5); EOS % 4.3 % (0.0-3.0); HEMATOCRIT 29.3 % (36.0-47.0); HEMOGLOBIN 9.8 g/dl (12.0-15.5); LYMPH # 1.5 10^3/uL (1.5-5.0); MEAN CORPUSCULAR HEMOGLOBIN 32.1 pg (27.0-33.0); MEAN CORPUSCULAR HGB CONC 33.4 g/dl (32.0-36.5); MEAN CORPUSCULAR VOLUME 96.1 fl (80.0-96.0); MONO # 0.3 10^3/uL (0.0-0.8); MONO % 6.2 % (0.0-5.0); NEUTROPHILS # 2.6 10^3/uL (1.5-8.5); PLATELET COUNT, AUTOMATED 252 10^3/uL (150-450); RED BLOOD COUNT 3.05 10^6/uL (4.00-5.40); WHITE BLOOD COUNT 4.7 10^3/uL (4.0-10.0)
[2019-07-23 06:46] LABS: BLOOD UREA NITROGEN 12 MG/DL (7-18); CALCIUM LEVEL 7.4 MG/DL (8.5-10.1); CARBON DIOXIDE LEVEL 28 MEQ/L (21-32); CHLORIDE LEVEL 105 MEQ/L (98-107); CREATININE FOR GFR 0.92 MG/DL (0.55-1.30); GLOMERULAR FILTRATION RATE > 60.0 (>51); GLUCOSE, FASTING 427 MG/DL (70-100); MAGNESIUM LEVEL 1.7 MG/DL (1.8-2.4); POTASSIUM SERUM 4.5 MEQ/L (3.5-5.1); SODIUM LEVEL 141 MEQ/L (136-145)
[2019-07-23] MEDS: LEVEMIR (INSULIN DETEMIR) 1 UNITS/0.01ML SC SCH ×2 (07:53→21:12)
[2019-07-23] MEDS: SUCRALFATE SUSP 1GM/10ML UD PO SCH ×4 (07:53→21:11)
[2019-07-23] MEDS: clonazePAM 1 MG TAB PO SCH ×3 (07:53→21:12)
[2019-07-23] MEDS: ASPIRIN 81 MG ENTERIC TAB PO SCH (07:53)
[2019-07-23] MEDS: HumaLOG INSULIN (NovoLOG) PER UNIT SC SCH ×4 (07:54→21:00)
--- NOTE | 2019-07-23 11:10 | DS.PDOC ---
Discharge Summary General Date of Admission Jul 18, 2019 at 22:32 Date of Discharge 07/23/19 Discharge Summary PROCEDURES PERFORMED DURING STAY: None. ADMITTING DIAGNOSES: 1. DKA. DISCHARGE DIAGNOSES: 1. DKA, reflux esophagitis, hypertension, diabetes mellitus, gastroparesis, hyperlipidemia, obstructive sleep apnea, GERD COMPLICATIONS/CHIEF COMPLAINT: DKA. HISTORY OF PRESENT ILLNESS: Patient is a 53-year-old female with a PMHx of IDDM1, Gastroparesis, HTN, DLP, JERAD, Asthma, Hx of TIA, GERD s/p Gretchen Fundoplication / Celiac disease / Hx of Gastritis and bleed (2014), who presented to the hospital with nausea and vomiting that started 3 days prior. Patient was recently admitted to the hospital on 07/13-07/14 for DKA. At that point, patient etiology DKA was unclear. Patient was evaluated for any septic source or any cardiac etiology, all of which was negative. She had full resolution of her symptoms and was discharged home with outpatient follow-up with her primary care provider, surgery and endocrinology Kori patient reports that shes experienced 3 days of nausea and vomiting. El wong is unable to quantify how many times she has vomited. She denies any evidence of blood. Patient reports decreased oral intake. Patient has tested that she has been complaint with her insulin. Currently she denies any chest pain, shortness of breath, cough, fevers or chills. Denies any abdominal pain, constipation, diarrhea, or urinary discomfort.. HOSPITAL COURSE: (1) DKA (diabetic ketoacidoses) Patient is a 53-year-old female with a PMHx of IDDM1, Gastroparesis, HTN, DLP, JERAD, Asthma, Hx of TIA, GERD s/p Gretchen Fundoplication / Celiac disease / Hx of Gastritis and bleed (2014), who presented to the hospital with nausea and vomiting that started 3 days prior. She was found to be in DKA. This is her 4th episode of DKA in 1 month. Has not had any DKAs in the past. Most recently admitted to the hospital on 07/13-07/14 for DKA. At that point, patient etiology DKA was unclear. Patient was evaluated for any septic source or any cardiac etiology, all of which was negative. She had full resolution of her symptoms and was discharged home with outpatient follow-up with her primary care provider, surgery and endocrinology. She has an apponintment with [facility] on 08/08 unfortunately a day after going home her symptoms again started. Diabetic ketoacidosis, resolved Patient is tolerating consistent carbohydrate diet On discharge,Patient will continue on home dose of her insulin as she is been prescribed by her endocrine specialist Patient needs to follow with [facility] [place] [facility] [place] sees is scheduled to see them at and of this month Patient was encouraged to start ambulating frequently as possible Patient will be discharged home today and follow with the [facility] and her endocrine/PCP as soon as possible (2) GERD (gastroesophageal reflux disease) Patient's nausea has decreased slightly, secondary to diabetic gastroparesis and the reflex esophagitis Upper GI series done: There are multiple linear ulcerations in the esophagus with irregular mucosa. These are new findings compared to a previous study performed on 06/21/2019. There is a sliding type hiatal hernia. There is gastroesophageal reflux demonstrated to the level of the thoracic inlet. These findings are consistent with reflux esophagitis, however, early malignancy cannot be ruled out. Recommend endoscopy for further evaluation. Patient already had EGD done last month which showed: Impression: - LA Grade D reflux esophagitis. Rule out Ren's esophagus. Biopsied. - Medium-sized hiatal hernia. 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 Dilated. - Normal ampulla, duodenal bulb, second portion of the duodenum and area of the papilla. And Dr. Gardner had recommended the following instructions: - Patient has a contact number available for emergencies. The signs and symptoms of potential delayed complications were discussed with the patient. Return to normal activities tomorrow. Written discharge instructions were provided to the patient. - [facility]. - Clear liquid diet for 1 day, then advance as tolerated to gastroparesis diet. - Use Protonix (pantoprazole) 40 mg PO twice daily - to be taken in morning (1/2 hour before breakfast) and at bedtime ( atleast 3 hours after last meal) for 3 months. - Use sucralfate suspension 1 gram PO QID for 6 weeks. - Repeat upper endoscopy in 3 months to check healing. - Telephone GI clinic for pathology results in 2 weeks. - Return to GI clinic in [facility] (address [address], [address], [place], [address]) in 4 -- 6 weeks. Please call GI clinic @ [phone] for apppointment date and time. - Return to primary care physician. (3) JERAD (obstructive sleep apnea) History of JREAD Continue CPAP from home (4) CKD (chronic kidney disease) Secondary to diabetes mellitus Continue monitoring renal function (5) HTN (hypertension) Continue present meds (6) Gastroparesis due to DM Gastroparesis / Neuropathy c/w symptomatic control with Zofran and reglan. DISCHARGE MEDICATIONS: Please see below. ALLERGIES: Please see below. PHYSICAL EXAMINATION ON DISCHARGE: VITAL SIGNS: Please see below. GENERAL: Within normal limits HEENT: PERRLA. Extraocular muscles intact NECK: Supple CARDIOVASCULAR EXAMINATION: S1, S2, regular RESPIRATORY EXAMINATION: Clear to A&P ABDOMINAL EXAMINATION: Benign EXTREMITIES: No clubbing, cyanosis, edema SKIN: Within normal limits NEUROLOGICAL EXAMINATION: . No focal motor sensory deficit PSYCHIATRIC EXAMINATION: Normal LABORATORY DATA: Please see below. IMAGING: Upper GI series:There are multiple linear ulcerations in the esophagus with irregular mucosa. These are new findings compared to a previous study performed on 06/21/2019. There is a sliding type hiatal hernia. There is gastroesophageal reflux demonstrated to the level of the thoracic inlet. These findings are consistent with reflux esophagitis, however, early malignancy cannot be ruled out. Recommend endoscopy for further evaluation. PROGNOSIS: Good ACTIVITY: As tolerated. DIET: Consistent, water diet DISCHARGE PLAN: Patient will follow-up with [facility] in GI clinic as per schedule DISPOSITION: Home. DISCHARGE INSTRUCTIONS: 1. As per discharge instructions. ITEMS TO FOLLOWUP ON ON OUTPATIENT: 1. As above. DISCHARGE CONDITION: Stable. TIME SPENT ON DISCHARGE: 35 minutes. Vital Signs/I&Os Vital Signs Date Time Temp Pulse Resp B/P (MAP) Pulse Ox O2 Delivery O2 Flow Rate FiO2 07/23/19 05:31 98.3 80 20 131/79 (96) 96 Room Air 07/19/19 07:00 2.0 I&O- Last 24 Hours up to 6 AM 07/23/19 06:00 Intake Total 1980 ml Output Total 0 ml Balance 1980 ml Laboratory Data Labs 24H Laboratory Tests 2 07/22/19 11:37: Bedside Glucose (Misc Panel) 203H 07/22/19 16:32: Bedside Glucose (Misc Panel) 55L 07/22/19 17:33: Bedside Glucose (Misc Panel) 138H 07/22/19 20:49: Bedside Glucose (Misc Panel) 94 07/23/19 06:03: Immature Granulocyte % (Auto) 0.2, Neutrophils (%) (Auto) 55.0, Lymphocytes (%) (Auto) 33.0, Monocytes (%) (Auto) 6.2H, Eosinophils (%) (Auto) 4.3H, Basophils (%) (Auto) 1.3H, Neutrophils # (Auto) 2.6, Lymphocytes # (Auto) 1.5, Monocytes # (Auto) 0.3, Eosinophils # (Auto) 0.2, Basophils # (Auto) 0.1, Nucleated Red Blood Cells % (auto) 0.0, Anion Gap 8, Glomerular Filtration Rate > 60.0, Calcium Level 7.4L, Magnesium Level 1.7L CBC/BMP Laboratory Tests 07/23/19 06:03 FSBS Laboratory Tests Test 07/22/19 11:37 07/22/19 16:32 07/22/19 17:33 07/22/19 20:49 Range/Units Bedside Glucose (Misc Panel) 203 55 138 94 70-105 MG/DL Microbiology Microbiology 07/19/19 Urine Culture - Final, Complete 07/19/19 Blood Culture - Preliminary, Resulted No Growth after 72 hours. All specime... 07/18/19 Blood Culture - Preliminary, Resulted No Growth after 72 hours. All specime... Discharge Medications Scheduled Aspirin (Aspirin EC) 81 Mg Tabec, 81 MG PO DAILY, (Reported) Atorvastatin Calcium (Atorvastatin Calcium) 20 Mg Tablet, 20 MG PO DAILY, (Reported) Cholecalciferol (Vitamin D3) (Vitamin D3) 1,000 Unit Tablet, 1,000 UNITS PO DAILY, (Reported) Clonazepam (Clonazepam) 1 Mg Tablet, 1 MG PO TID, (Reported) Dulaglutide (Trulicity) 1.5 Mg/0.5 Ml Pen.injctr, 1.5 MG SC Q7D, (Reported) Ferrous Sulfate (Ferrous Sulfate) 325 Mg Tab, 325 MG PO DAILY, (Reported) Fluoxetine Hcl (Fluoxetine HCl) 20 Mg Capsule, 20 MG PO DAILY, (Reported) Insulin Aspart (Niacinamide) (Fiasp 100 Unit/ml Flextouch) 100 Unit/1 Ml Insuln.pen, 1 DOSE SC AC, (Reported) PER SLIDING SCALE Insulin Degludec (Tresiba Flextouch U-100) 100 Unit/1 Ml Insuln.pen, 30 UNIT SC DAILY, (Reported) Methocarbamol (Methocarbamol) 500 Mg Tablet, 500 MG PO BID, (Reported) Multivitamins (Thera M Plus Tablet) 1 Tab Tab, 1 TAB PO DAILY, (Reported) Pantoprazole Sodium (Pantoprazole Sodium) 40 Mg Tablet.dr, 40 MG PO BID, (Reported) Pregabalin (Pregabalin) 75 Mg Capsule, 75 MG PO BID, (Reported) Sucralfate (Carafate) 1 Gm/10 Ml Oral.susp, 10 ML PO QID before food Varenicline (Chantix) 1 Mg Tablet, 1 MG PO BID, (Reported) Scheduled PRN Albuterol Sulfate (Ventolin Hfa) 108 Mcg/Act Aer, 2 PUFFS INH Q4H PRN for SHORTNESS OF BREATH, (Reported) Ammonium Lactate (Ammonium Lactate) 12 % Cre, 1 DOSE TOP DAILY PRN for PAIN, (Reported) APPLY TO FEET Docusate Sodium (Colace) 100 Mg Cap, 100 MG PO BID PRN for CONSTIPATION, (Reported) Glucagon,Human Recombinant (Glucagon Emergency Kit) 1 Mg Kit, 1 MG IM ASDIRECTED PRN for LOW BLOOD SUGAR, (Reported) Lidocaine (Lidocaine) 120 Gm Oint...g., 1 DOSE TOP DAILY PRN for BACK PAIN, (Reported) Ondansetron (Ondansetron Odt) 4 Mg Tab.rapdis, 4 MG PO Q6H PRN for NAUSEA OR VOMITING, (Reported) Oxycodone HCl/Acetaminophen (Oxycodone-Acetaminophen 5-325) 1 Each Tablet, 1 TAB PO BID PRN for PAIN, (Reported) Polyethylene Glycol 3350 (Miralax) 119 Gm Powder, 17 GM PO DAILY PRN for CONSTIPATION, (Reported) Promethazine HCl (Promethazine HCl) 25 Mg Tablet, 25 MG PO Q6H PRN for NAUSEA OR VOMITING, (Reported) Propylene Glycol/Peg 400 (Systane 0.3-0.4% Eye Drops) 15 Ml Sade, 1 DROP OU QID PRN for DRY EYES, (Reported) Sodium Chloride (Walker) 0.65 % Spr, 2 SPRAY NA QID PRN for NASAL DRYNESS, (Reported) Tizanidine HCl (Tizanidine HCl) 4 Mg Tablet, 4 MG PO TID PRN for MUSCLE SPASMS, (Reported) Trazodone HCl (Trazodone HCl) 50 Mg Tablet, 50 MG PO QHS PRN for SLEEP, (Reported) Allergies Coded Allergies: TAPE (Verified Allergy, Mild, PLASTIC TAPE- RASH, 07/06/19) BANDAIDS -RASH prednisone (Verified Adverse Reaction, Intermediate, EXTREME ELEVATED BLOOD SUGAR, 07/06/19) Gluten Flour (Verified Adverse Reaction, Mild, diarrhea, 07/06/19) gluten (Verified Adverse Reaction, Mild, DIARRHEA, 07/06/19) GERI CHANG MD Jul 23, 2019 11:10
--- NOTE | 2019-07-23 11:42 | IPNPDOC ---
Subjective Date Seen The patient was seen on 07/23/19. Subjective Chief Complaint/HPI Patient is feeling better, tolerating consistent carbohydrate diet . She was scheduled to discharge, but she refused leave, as she is not feeling comfortable and she panicked appeal the decision General: Denies: ROS Unobtainable, Chills, Night Sweats, Fatigue, Malaise, Normal Appetite, Other Symptoms Constitutional: Denies: Chills, Fever, Malaise, Night Sweats, Weakness, Fatigue, Weight Loss, Lethargy, Other Eyes: Denies: Pain, Vision change, Conjunctivae inflammation, Eyelid inflammation, Redness, Other Pulmonary: Denies: Dyspnea, Cough, Pleuritic Chest Pain, Other Symptoms Cardiovascular: Denies: Chest Pain, Palpitations, Orthopnea, Paroxysmal Noc. Dyspnea, Edema, Lt Headedness, Other Symptoms Gastrointestinal: Denies: Nausea, Vomiting, Abdominal Pain, Diarrhea, Constipation, Melena, Hematochezia, Other Symptoms Genitourinary: Denies: Dysuria, Frequency, Incontinence, Hematuria, Retention, Other Symptoms Musculoskeletal: Denies: Neck Pain, Back Pain, Shoulder Pain, Arm Pain, Hand Pain, Leg Pain, Foot Pain, Joint Pain, Muscle Pain, Spasms, Other Symptoms Neurological: Denies: Weakness, Numbness, Incoordination, Change in speech, Confusion, Seizures, Other Symptoms Objective Physical Examination General Exam: Positive: Alert, Cooperative Eye Exam: Positive: PERRLA, Conjunctiva & lids normal ENT Exam: Positive: Atraumatic Neck Exam: Positive: Supple Chest Exam: Positive: Normal air movement Heart Exam: Positive: Rate Normal, Normal S1, Normal S2 Abdomen Exam: Positive: Normal bowel sounds, Soft Extremity Exam: Positive: Normal pulses Skin Exam: Positive: Nl turgor and temperature Neuro Exam: Positive: Strength at 5/5 X4 ext, Normal Tone, Cranial Nerves 3-12 NL Psych Exam: Positive: Mood NL, Oriented x 3 Assessment /Plan Problems (1) DKA (diabetic ketoacidoses) Status: Acute Problem Text: Patient is a 53-year-old female with a PMHx of IDDM1, Gastroparesis, HTN, DLP, JERAD, Asthma, Hx of TIA, GERD s/p Gretchen Fundoplication / Celiac disease / Hx of Gastritis and bleed (2014), who presented to the hospital with nausea and vomiting that started 3 days prior. She was found to be in DKA. This is her 4th episode of DKA in 1 month. Has not had any DKAs in the past. Most recently admitted to the hospital on 07/13-07/14 for DKA. At that point, patient etiology DKA was unclear. Patient was evaluated for any septic source or any cardiac etiology, all of which was negative. She had full resolution of her symptoms and was discharged home with outpatient follow-up with her primary care provider, surgery and endocrinology. She has an apponintment with [facility] on 08/08 unfortunately a day after going home her symptoms again started. Diabetic ketoacidosis, resolved Patient is not consistent carbohydrate diet Patient was advised to continue her home dosage of insulin as prescribed by her endocrine specialist and Follow-up with [facility] [place] as scheduled The again was counseled regarding frequent ambulation and keeping the head of bed higher while she is eating secondary to reflux esophagitis Patient was scheduled to discharge. Today, but she refused to leave, she is not feeling comfortable and she will appeal the decision of discharge Continue current medications and treatment (2) GERD (gastroesophageal reflux disease) Status: Chronic Problem Text: Patient's nausea has decreased slightly, secondary to diabetic gastroparesis and the reflex esophagitis Upper GI series done: There are multiple linear ulcerations in the esophagus with irregular mucosa. These are new findings compared to a previous study performed on 06/21/2019. There is a sliding type hiatal hernia. There is gastroesophageal reflux demonstrated to the level of the thoracic inlet. These findings are consistent with reflux esophagitis, however, early malignancy cannot be ruled out. Recommend endoscopy for further evaluation. Patient already had EGD done last month which showed: Impression: - LA Grade D reflux esophagitis. Rule out Ren's esophagus. Biopsied. - Medium-sized hiatal hernia. 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 Dilated. - Normal ampulla, duodenal bulb, second portion of the duodenum and area of the papilla. And Dr. Gardner had recommended the following instructions: - Patient has a contact number available for emergencies. The signs and symptoms of potential delayed complications were discussed with the patient. Return to normal activities tomorrow. Written discharge instructions were provided to the patient. - [facility]. - Clear liquid diet for 1 day, then advance as tolerated to gastroparesis diet. - Use Protonix (pantoprazole) 40 mg PO twice daily - to be taken in morning (1/2 hour before breakfast) and at bedtime ( atleast 3 hours after last meal) for 3 months. - Use sucralfate suspension 1 gram PO QID for 6 weeks. - Repeat upper endoscopy in 3 months to check healing. - Telephone GI clinic for pathology results in 2 weeks. - Return to GI clinic in [facility] (address [address], [address], [place], [facility]) in 4 -- 6 weeks. Please call GI clinic @ [phone] for apppointment date and time. - Return to primary care physician. (3) JERAD (obstructive sleep apnea) Status: Chronic Problem Text: , History of JERAD Continue CPAP from home (4) CKD (chronic kidney disease) Status: Chronic Problem Text: Secondary to diabetes mellitus Continue monitoring renal function (5) HTN (hypertension) Status: Chronic Problem Text: Continue present meds (6) Gastroparesis due to DM Status: Chronic Problem Text: Gastroparesis / Neuropathy c/w symptomatic control with Zofran and reglan. Plan/VTE VTE Prophylaxis Ordered?: Yes VS, I&O, 24H, Fishbone Vital Signs/I&O Vital Signs Date Time Temp Pulse Resp B/P (MAP) Pulse Ox O2 Delivery O2 Flow Rate FiO2 07/23/19 05:31 98.3 80 20 131/79 (96) 96 Room Air 07/19/19 07:00 2.0 I&O- Last 24 Hours up to 6 AM 07/23/19 06:00 Intake Total 1980 ml Output Total 0 ml Balance 1980 ml Laboratory Data 24H LABS Laboratory Tests 2 07/22/19 16:32: Bedside Glucose (Misc Panel) 55L 07/22/19 17:33: Bedside Glucose (Misc Panel) 138H 07/22/19 20:49: Bedside Glucose (Misc Panel) 94 07/23/19 06:03: Immature Granulocyte % (Auto) 0.2, Neutrophils (%) (Auto) 55.0, Lymphocytes (%) (Auto) 33.0, Monocytes (%) (Auto) 6.2H, Eosinophils (%) (Auto) 4.3H, Basophils (%) (Auto) 1.3H, Neutrophils # (Auto) 2.6, Lymphocytes # (Auto) 1.5, Monocytes # (Auto) 0.3, Eosinophils # (Auto) 0.2, Basophils # (Auto) 0.1, Nucleated Red Blood Cells % (auto) 0.0, Anion Gap 8, Glomerular Filtration Rate > 60.0, Calcium Level 7.4L, Magnesium Level 1.7L 07/23/19 11:05: Bedside Glucose (Misc Panel) 279H CBC/BMP Laboratory Tests 07/23/19 06:03 Microbiology Microbiology 07/19/19 Urine Culture - Final, Complete 07/19/19 Blood Culture - Preliminary, Resulted No Growth after 72 hours. All specime... 07/18/19 Blood Culture - Preliminary, Resulted No Growth after 72 hours. All specime... GERI CHANG MD Jul 23, 2019 11:42
[2019-07-23] MEDS: PANTOPRAZOLE 40MG VIAL (C9113 PER 1) IV SCH (11:48)
[2019-07-23 14:00] VITALS: BP 138/69
[2019-07-23] MEDS: ONDANSETRON 4MG/2ML VIAL IV PRN (19:41)
[2019-07-23] MEDS: RAMELTEON 8 MG TAB (ROZEREM) PO SCH (21:12)
[2019-07-23 22:00] VITALS: BP 132/74
[2019-07-24] MEDS: METOCLOPRAMIDE INJ 10MG/2ML VIAL (J2765 PER 1) IV SCH ×5 (00:37→17:33)
[2019-07-24] MEDS: HEPARIN SOD (PORCINE) 5000UNITS/ML VIAL (J1644 PER 1000UNITS) SC SCH ×3 (05:39→21:49)
[2019-07-24] MEDS: SODIUM CHLORIDE 0.9% INJ 10 ML SYR IV SCH ×3 (05:40→21:49)
[2019-07-24 05:58] LABS: BASO # 0.1 10^3/uL (0.0-0.2); BASO % 1.1 % (0.0-1.0); EOS # 0.3 10^3/uL (0.0-0.5); EOS % 5.1 % (0.0-3.0); HEMATOCRIT 30.9 % (36.0-47.0); HEMOGLOBIN 10.3 g/dl (12.0-15.5); LYMPH # 2.6 10^3/uL (1.5-5.0); MEAN CORPUSCULAR HEMOGLOBIN 31.7 pg (27.0-33.0); MEAN CORPUSCULAR HGB CONC 33.3 g/dl (32.0-36.5); MEAN CORPUSCULAR VOLUME 95.1 fl (80.0-96.0); MONO # 0.4 10^3/uL (0.0-0.8); MONO % 7.3 % (0.0-5.0); NEUTROPHILS # 2.3 10^3/uL (1.5-8.5); NEUTROPHILS % 40.3 % (36.0-66.0); PLATELET COUNT, AUTOMATED 292 10^3/uL (150-450); RED BLOOD COUNT 3.25 10^6/uL (4.00-5.40); WHITE BLOOD COUNT 5.7 10^3/uL (4.0-10.0)
[2019-07-24 06:00] VITALS: BP 143/62
[2019-07-24 06:31] LABS: BLOOD UREA NITROGEN 12 MG/DL (7-18); CARBON DIOXIDE LEVEL 32 MEQ/L (21-32); CHLORIDE LEVEL 106 MEQ/L (98-107); CREATININE FOR GFR 0.78 MG/DL (0.55-1.30); GLOMERULAR FILTRATION RATE > 60.0 (>51); GLUCOSE, FASTING 38 MG/DL (70-100); MAGNESIUM LEVEL 1.8 MG/DL (1.8-2.4); POTASSIUM SERUM 3.2 MEQ/L (3.5-5.1); SODIUM LEVEL 145 MEQ/L (136-145)
[2019-07-24] MEDS: HumaLOG INSULIN (NovoLOG) PER UNIT SC SCH ×4 (07:56→21:00)
[2019-07-24] MEDS: ONDANSETRON 4MG/2ML VIAL IV PRN (07:56)
[2019-07-24] MEDS: clonazePAM 1 MG TAB PO SCH ×3 (07:56→21:49)
[2019-07-24] MEDS: ASPIRIN 81 MG ENTERIC TAB PO SCH (07:56)
[2019-07-24] MEDS: SUCRALFATE SUSP 1GM/10ML UD PO SCH ×4 (07:56→21:49)
[2019-07-24] MEDS ORDERED: POTASSIUM CHLORIDE 10 MEQ SR TABLET PO ONE (09:00)
[2019-07-24] MEDS: LEVEMIR (INSULIN DETEMIR) 1 UNITS/0.01ML SC SCH (09:11)
[2019-07-24] MEDS: PANTOPRAZOLE 40MG VIAL (C9113 PER 1) IV SCH (12:00)
--- NOTE | 2019-07-24 12:40 | IPNPDOC ---
Subjective Date Seen The patient was seen on 07/24/19. Subjective Chief Complaint/HPI Patient offers no complaints, but is still not following my recommendation to ambulate. She is still laying down in bed all the time as per information from the floor staff General: Denies: ROS Unobtainable, Chills, Night Sweats, Fatigue, Malaise, Normal Appetite, Other Symptoms Constitutional: Denies: Chills, Fever, Malaise, Night Sweats, Weakness, Fatigue, Weight Loss, Lethargy, Other Pulmonary: Denies: Dyspnea, Cough, Pleuritic Chest Pain, Other Symptoms Cardiovascular: Denies: Chest Pain, Palpitations, Orthopnea, Paroxysmal Noc. Dyspnea, Edema, Lt Headedness, Other Symptoms Gastrointestinal: Denies: Nausea, Vomiting, Abdominal Pain, Diarrhea, Constipation, Melena, Hematochezia, Other Symptoms Musculoskeletal: Denies: Neck Pain, Back Pain, Shoulder Pain, Arm Pain, Hand Pain, Leg Pain, Foot Pain, Joint Pain, Muscle Pain, Spasms, Other Symptoms Neurological: Denies: Weakness, Numbness, Incoordination, Change in speech, Confusion, Seizures, Other Symptoms Objective Physical Examination General Exam: Positive: Alert, Cooperative Eye Exam: Positive: PERRLA, Conjunctiva & lids normal ENT Exam: Positive: Atraumatic Neck Exam: Positive: Supple Chest Exam: Positive: Normal air movement Heart Exam: Positive: Rate Normal, Normal S1, Normal S2 Abdomen Exam: Positive: Normal bowel sounds, Soft Extremity Exam: Positive: Normal pulses Skin Exam: Positive: Nl turgor and temperature Neuro Exam: Positive: Strength at 5/5 X4 ext, Normal Tone, Cranial Nerves 3-12 NL Psych Exam: Positive: Mood NL, Oriented x 3 Assessment /Plan Problems (1) Brittle diabetes mellitus Status: Chronic Problem Text: Patient is still tends to have a hypoglycemia first thing in the morning Will DC insulin Levemir 8 units twice a day And will try insulin Levemir 14 units subcutaneous in a.m. and no p.m. 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 She was found to be in DKA. This is her 4th episode of DKA in 1 month. Has not had any DKAs in the past. Most recently admitted to the hospital on 07/13-07/14 for DKA. At that point, patient etiology DKA was unclear. Patient was evaluated for any septic source or any cardiac etiology, all of which was negative. She had full resolution of her symptoms and was discharged home with outpatient follow-up with her primary care provider, surgery and endocrinology. She has an apponintment with [facility] on 08/08 unfortunately a day after going home her symptoms again started. DKA has resolved now All IV meds and fluids have been DC'd . She is tolerating consistent carbohydrate diet . No more nausea or vomiting at this point Again counseling done regarding ambulation in the room are on the unit Continue present meds (3) GERD (gastroesophageal reflux disease) Status: Chronic Problem Text: Patient had significantly decreased, nausea and vomiting Continue present meds Again ambulation was a highly recommended to prevent reflux as patient has a severe reflux esophagitis (4) JERAD (obstructive sleep apnea) Status: Chronic Problem Text: , History of JERAD Continue CPAP from home (5) CKD (chronic kidney disease) Status: Chronic Problem Text: Secondary to diabetes mellitus Continue monitoring renal function (6) HTN (hypertension) Status: Chronic Problem Text: Continue present meds (7) Gastroparesis due to DM Status: Chronic Problem Text: Gastroparesis / Neuropathy c/w symptomatic control with Zofran and reglan. Plan/VTE VTE Prophylaxis Ordered?: Yes VS, I&O, 24H, Fishbone Vital Signs/I&O Vital Signs Date Time Temp Pulse Resp B/P (MAP) Pulse Ox O2 Delivery O2 Flow Rate FiO2 07/24/19 06:00 97.9 96 18 143/62 (89) 96 Room Air 07/19/19 07:00 2.0 I&O- Last 24 Hours up to 6 AM 07/24/19 06:00 Intake Total 2680 ml Output Total 1900 ml Balance 780 ml Laboratory Data 24H LABS Laboratory Tests 2 07/23/19 17:16: Bedside Glucose (Misc Panel) 131H 07/23/19 20:14: Bedside Glucose (Misc Panel) 241H 07/24/19 05:47: Immature Granulocyte % (Auto) 0.2, Neutrophils (%) (Auto) 40.3, Lymphocytes (%) (Auto) 46.0H, Monocytes (%) (Auto) 7.3H, Eosinophils (%) (Auto) 5.1H, Basophils (%) (Auto) 1.1H, Neutrophils # (Auto) 2.3, Lymphocytes # (Auto) 2.6, Monocytes # (Auto) 0.4, Eosinophils # (Auto) 0.3, Basophils # (Auto) 0.1, Nucleated Red Blood Cells % (auto) 0.0, Anion Gap 7L, Glomerular Filtration Rate > 60.0, Calc ium Level 8.0L, Magnesium Level 1.8 07/24/19 07:30: Bedside Glucose (Misc Panel) 257H 07/24/19 11:32: Bedside Glucose (Misc Panel) 239H CBC/BMP Laboratory Tests 07/24/19 05:47 Microbiology Microbiology 07/19/19 Urine Culture - Final, Complete 07/19/19 Blood Culture - Final, Complete NO GROWTH AFTER 5 DAYS 07/18/19 Blood Culture - Final, Complete NO GROWTH AFTER 5 DAYS GERI CHANG MD Jul 24, 2019 12:40
[2019-07-24 14:00] VITALS: BP 137/64
[2019-07-24] MEDS: RAMELTEON 8 MG TAB (ROZEREM) PO SCH (21:49)
[2019-07-24 22:00] VITALS: BP 169/87
[2019-07-25] MEDS: METOCLOPRAMIDE INJ 10MG/2ML VIAL (J2765 PER 1) IV SCH ×4 (00:58→17:55)
[2019-07-25 06:00] VITALS: BP 124/69
[2019-07-25] MEDS: HEPARIN SOD (PORCINE) 5000UNITS/ML VIAL (J1644 PER 1000UNITS) SC SCH ×3 (06:06→21:57)
[2019-07-25] MEDS: SODIUM CHLORIDE 0.9% INJ 10 ML SYR IV SCH ×3 (06:06→22:20)
[2019-07-25 06:46] LABS: BASO # 0.1 10^3/uL (0.0-0.2); BASO % 1.2 % (0.0-1.0); EOS # 0.2 10^3/uL (0.0-0.5); EOS % 4.5 % (0.0-3.0); HEMATOCRIT 30.1 % (36.0-47.0); HEMOGLOBIN 9.9 g/dl (12.0-15.5); LYMPH # 1.5 10^3/uL (1.5-5.0); LYMPH % 31.6 % (24.0-44.0); MEAN CORPUSCULAR HEMOGLOBIN 31.9 pg (27.0-33.0); MEAN CORPUSCULAR HGB CONC 32.9 g/dl (32.0-36.5); MEAN CORPUSCULAR VOLUME 97.1 fl (80.0-96.0); MONO # 0.4 10^3/uL (0.0-0.8); MONO % 8.4 % (0.0-5.0); NEUTROPHILS # 2.6 10^3/uL (1.5-8.5); NEUTROPHILS % 54.1 % (36.0-66.0); PLATELET COUNT, AUTOMATED 293 10^3/uL (150-450); WHITE BLOOD COUNT 4.9 10^3/uL (4.0-10.0)
[2019-07-25 06:56] LABS: ALBUMIN 1.9 GM/DL (3.2-5.2); ALT/SGPT 70 U/L (12-78); BILIRUBIN,TOTAL 0.2 MG/DL (0.2-1.0); BLOOD UREA NITROGEN 12 MG/DL (7-18); CALCIUM LEVEL 7.7 MG/DL (8.5-10.1); CARBON DIOXIDE LEVEL 29 MEQ/L (21-32); CHLORIDE LEVEL 102 MEQ/L (98-107); CREATININE FOR GFR 0.88 MG/DL (0.55-1.30); GLOMERULAR FILTRATION RATE > 60.0 (>51); GLUCOSE, FASTING 372 MG/DL (70-100); MAGNESIUM LEVEL 1.7 MG/DL (1.8-2.4); POTASSIUM SERUM 4.6 MEQ/L (3.5-5.1); SODIUM LEVEL 140 MEQ/L (136-145); TOTAL PROTEIN 4.7 GM/DL (6.4-8.2)
[2019-07-25] MEDS: LEVEMIR (INSULIN DETEMIR) 1 UNITS/0.01ML SC SCH (08:43)
[2019-07-25] MEDS: HumaLOG INSULIN (NovoLOG) PER UNIT SC SCH ×4 (08:43→21:00)
[2019-07-25] MEDS: SUCRALFATE SUSP 1GM/10ML UD PO SCH ×4 (08:43→21:51)
[2019-07-25] MEDS: clonazePAM 1 MG TAB PO SCH ×3 (08:44→21:51)
[2019-07-25] MEDS: ASPIRIN 81 MG ENTERIC TAB PO SCH (08:44)
--- NOTE | 2019-07-25 10:33 | IPNPDOC ---
Subjective Date Seen The patient was seen on 07/25/19. Subjective Chief Complaint/HPI pt feels much better. She has some residual nausea but is a lot improved since admission General: Denies: ROS Unobtainable, Chills, Night Sweats, Fatigue, Malaise, Normal Appetite, Other Symptoms Constitutional: Denies: Chills, Fever, Malaise, Night Sweats, Weakness, Fatigue, Weight Loss, Lethargy, Other Pulmonary: Denies: Dyspnea, Cough, Pleuritic Chest Pain, Other Symptoms Cardiovascular: Denies: Chest Pain, Palpitations, Orthopnea, Paroxysmal Noc. Dy spnea, Edema, Lt Headedness, Other Symptoms Gastrointestinal: Denies: Nausea, Vomiting, Abdominal Pain, Diarrhea, Constipation, Melena, Hematochezia, Other Symptoms Musculoskeletal: Denies: Neck Pain, Back Pain, Shoulder Pain, Arm Pain, Hand Pain, Leg Pain, Foot Pain, Joint Pain, Muscle Pain, Spasms, Other Symptoms Neurological: Denies: Weakness, Numbness, Incoordination, Change in speech, Confusion, Seizures, Other Symptoms Objective Physical Examination General Exam: Positive: Alert, Cooperative Neck Exam: Positive: Supple Chest Exam: Positive: Normal air movement Heart Exam: Positive: Rate Normal, Normal S1, Normal S2 Abdomen Exam: Positive: Normal bowel sounds, Soft Extremity Exam: Positive: Normal pulses Skin Exam: Positive: Nl turgor and temperature Assessment /Plan Problems (1) Brittle diabetes mellitus Status: Chronic Problem Text: Patient was experiencing hypoglycemic episodes in the morning Or fingersticks were reviewed and it insulin detemir 8 units twice a day was discontinued Patient has been started on detemir 14 units subcutaneous since yesterday and so far she did not had any hypoglycemic episodes We will watch her fingerstick for 24 more hours and if her fingerstick blood sugars are acceptable, then hopefully she'll be discharged home tomorrow Again patient was advised to follow-up with [facility] diabetic is acute. Once she is discharged from this hospital (2) DKA (diabetic ketoacidoses) Status: Resolved Problem Text: Patient is a 53-year-old female with a PMHx of IDDM1, Gastroparesis, HTN, DLP, JERAD, Asthma, Hx of TIA, GERD s/p Gretchen Fundoplication / Celiac disease / Hx of Gastritis and bleed (2014), who presented to the hospital with nausea and vomiting that started 3 days prior. She was found to be in DKA. This is her 4th episode of DKA in 1 month. Has not had any DKAs in the past. Most recently admitted to the hospital on 07/13-07/14 for DKA. At that point, patient etiology DKA was unclear. Patient was evaluated for any septic source or any cardiac etiology, all of which was negative. She had full resolution of her symptoms and was discharged home with outpatient follow-up with her primary care provider, surgery and endocrinology. She has an apponintment with [facility] on 08/08 unfortunately a day after going home her symptoms again started. DKA has resolved now All IV meds and fluids have been DC'd . She is tolerating consistent carbohydrate diet . No more nausea or vomiting at this point Again counseling done regarding ambulation in the room are on the unit Continue present meds (3) GERD (gastroesophageal reflux disease) Status: Chronic Problem Text: Patient had significantly decreased, nausea and vomiting Continue present meds Again ambulation was a highly recommended to prevent reflux as patient has a severe reflux esophagitis (4) JERAD (obstructive sleep apnea) Status: Chronic Problem Text: , History of JERAD Continue CPAP from home (5) CKD (chronic kidney disease) Status: Chronic Problem Text: Secondary to diabetes mellitus Continue monitoring renal function (6) HTN (hypertension) Status: Chronic Problem Text: Continue present meds (7) Gastroparesis due to DM Status: Chronic Problem Text: Gastroparesis / Neuropathy c/w symptomatic control with Zofran and reglan. Plan/VTE VTE Prophylaxis Ordered?: Yes VS, I&O, 24H, Fishbone Vital Signs/I&O Vital Signs Date Time Temp Pulse Resp B/P (MAP) Pulse Ox O2 Delivery O2 Flow Rate FiO2 07/25/19 06:00 99.0 86 18 124/69 (87) 93 Room Air 07/19/19 07:00 2.0 I&O- Last 24 Hours up to 6 AM 07/25/19 05:59 Intake Total 1800 ml Output Total 1600 ml Balance 200 ml Laboratory Data 24H LABS Laboratory Tests 2 07/24/19 11:32: Bedside Glucose (Misc Panel) 239H 07/24/19 16:48: Bedside Glucose (Misc Panel) 60L 07/24/19 17:59: Bedside Glucose (Misc Panel) 182H 07/24/19 20:17: Bedside Glucose (Misc Panel) 167H 07/25/19 06:10: Immature Granulocyte % (Auto) 0.2, Neutrophils (%) (Auto) 54.1, Lymphocytes (%) (Auto) 31.6, Monocytes (%) (Auto) 8.4H, Eosinophils (%) (Auto) 4.5H, Basophils (%) (Auto) 1.2H, Neutrophils # (Auto) 2.6, Lymphocytes # (Auto) 1.5, Monocytes # (Auto) 0.4, Eosinophils # (Auto) 0.2, Basophils # (Auto) 0.1, Nucleated Red Blood Cells % (auto) 0.0, Anion Gap 9, Glomerular Filtration Rate > 60.0, Calcium Level 7.7L, Magnesium Level 1.7L, Total Bilirubin 0.2, Aspartate Amino Transf (AST/SGOT) 88H, Alanine Aminotransferase (ALT/SGPT) 70, Alkaline Phosphatase 120H, Total Protein 4.7L, Albumin 1.9L, Albumin/Globulin Ratio 0.7L CBC/BMP Laboratory Tests 07/25/19 06:10 Microbiology Microbiology 07/19/19 Urine Culture - Final, Complete 07/19/19 Blood Culture - Final, Complete NO GROWTH AFTER 5 DAYS 07/18/19 Blood Culture - Final, Complete NO GROWTH AFTER 5 DAYS GERI CHANG MD Jul 25, 2019 10:33
[2019-07-25] MEDS: PANTOPRAZOLE 40MG VIAL (C9113 PER 1) IV SCH (12:02)
[2019-07-25 14:30] VITALS: BP 136/65
[2019-07-25 20:40] VITALS: BP 150/86
[2019-07-25] MEDS: RAMELTEON 8 MG TAB (ROZEREM) PO SCH (21:51)
[2019-07-26] MEDS: HEPARIN SOD (PORCINE) 5000UNITS/ML VIAL (J1644 PER 1000UNITS) SC SCH ×3 (05:58→21:19)
[2019-07-26] MEDS: SODIUM CHLORIDE 0.9% INJ 10 ML SYR IV SCH ×3 (05:58→21:19)
[2019-07-26 06:15] LABS: BASO # 0.1 10^3/uL (0.0-0.2); BASO % 1.6 % (0.0-1.0); EOS # 0.2 10^3/uL (0.0-0.5); EOS % 5.4 % (0.0-3.0); HEMATOCRIT 29.5 % (36.0-47.0); HEMOGLOBIN 9.7 g/dl (12.0-15.5); LYMPH # 1.3 10^3/uL (1.5-5.0); LYMPH % 28.7 % (24.0-44.0); MEAN CORPUSCULAR HEMOGLOBIN 32.1 pg (27.0-33.0); MEAN CORPUSCULAR HGB CONC 32.9 g/dl (32.0-36.5); MEAN CORPUSCULAR VOLUME 97.7 fl (80.0-96.0); MONO # 0.4 10^3/uL (0.0-0.8); MONO % 9.5 % (0.0-5.0); NEUTROPHILS # 2.4 10^3/uL (1.5-8.5); NEUTROPHILS % 54.3 % (36.0-66.0); PLATELET COUNT, AUTOMATED 281 10^3/uL (150-450); RED BLOOD COUNT 3.02 10^6/uL (4.00-5.40); WHITE BLOOD COUNT 4.4 10^3/uL (4.0-10.0)
[2019-07-26 06:35] LABS: ALBUMIN 1.9 GM/DL (3.2-5.2); ALT/SGPT 69 U/L (12-78); BILIRUBIN,TOTAL 0.2 MG/DL (0.2-1.0); BLOOD UREA NITROGEN 15 MG/DL (7-18); CALCIUM LEVEL 7.8 MG/DL (8.5-10.1); CARBON DIOXIDE LEVEL 29 MEQ/L (21-32); CHLORIDE LEVEL 101 MEQ/L (98-107); CREATININE FOR GFR 0.87 MG/DL (0.55-1.30); GLOMERULAR FILTRATION RATE > 60.0 (>51); GLUCOSE, FASTING 459 MG/DL (70-100); MAGNESIUM LEVEL 1.8 MG/DL (1.8-2.4); POTASSIUM SERUM 4.4 MEQ/L (3.5-5.1); SODIUM LEVEL 137 MEQ/L (136-145)
[2019-07-26 06:40] VITALS: BP 125/73
[2019-07-26] MEDS: HumaLOG INSULIN (NovoLOG) PER UNIT SC SCH ×4 (06:42→21:00)
[2019-07-26] MEDS: SUCRALFATE SUSP 1GM/10ML UD PO SCH ×4 (08:55→21:19)
[2019-07-26] MEDS: ONDANSETRON 4MG/2ML VIAL IV PRN (08:56)
[2019-07-26] MEDS: clonazePAM 1 MG TAB PO SCH ×3 (08:56→21:19)
[2019-07-26] MEDS: PANTOPRAZOLE 40MG TAB (PROTONIX) PO SCH (08:56)
[2019-07-26] MEDS: LEVEMIR (INSULIN DETEMIR) 1 UNITS/0.01ML SC SCH (08:56)
[2019-07-26] MEDS: ASPIRIN 81 MG ENTERIC TAB PO SCH (08:56)
[2019-07-26] MEDS ORDERED: PANTOPRAZOLE 40MG VIAL (C9113 PER 1) IV SCH (09:00)
--- NOTE | 2019-07-26 11:50 | IPNPDOC ---
Subjective Date Seen The patient was seen on 07/26/19. Subjective Chief Complaint/HPI Patient is still has a fingerstick blood sugar more than 400 this morning, but fortunately she did not had any hypoglycemic episodes According to the nursing staff. Patient consumes large amount of food and she doesn't get out of her bed despite counseling done multiple times at bedside General: Denies: ROS Unobtainable, Chills, Night Sweats, Fatigue, Malaise, Normal Appetite, Other Symptoms Constitutional: Denies: Chills, Fever, Malaise, Night Sweats, Weakness, Fatigue, Weight Loss, Lethargy, Other Pulmonary: Denies: Dyspnea, Cough, Pleuritic Chest Pain, Other Symptoms Cardiovascular: Denies: Chest Pain, Palpitations, Orthopnea, Paroxysmal Noc. Dyspnea, Edema, Lt Headedness, Other Symptoms Gastrointestinal: Denies: Nausea, Vomiting, Abdominal Pain, Diarrhea, Constipation, Melena, Hematochezia, Other Symptoms Musculoskeletal: Denies: Neck Pain, Back Pain, Shoulder Pain, Arm Pain, Hand Pain, Leg Pain, Foot Pain, Joint Pain, Muscle Pain, Spasms, Other Symptoms Neurological: Denies: Weakness, Numbness, Incoordination, Change in speech, Confusion, Seizures, Other Symptoms Objective Physical Examination General Exam: Positive: Alert, Cooperative Neck Exam: Positive: Supple Chest Exam: Positive: Normal air movement Heart Exam: Positive: Rate Normal, Normal S1, Normal S2 Abdomen Exam: Positive: Normal bowel sounds, Soft Extremity Exam: Positive: Normal pulses Skin Exam: Positive: Nl turgor and temperature Assessment /Plan Problems (1) Brittle diabetes mellitus Status: Chronic Problem Text: Brittle diabetes. Also has a component of patient's noncompliance with meds and her food intake His fingerstick was 459 this morning, but no more episodes of hypoglycemia Will increase detemir to 18 units subcutaneous this morning and monitor her fingersticks over 24 hours If it's fingersticks remain under 250, then possibly she can be discharged home and follow with her PCP and [facility] [place] as per her appointment Unfortunately, patient is noncompliant to meds and Current dietary intake is excessive with carbohydrate and she does not ambulate tends to remain in bed despite my counseling multiple times, explaining the risks. (2) DKA (diabetic ketoacidoses) Status: Resolved Problem Text: Patient is a 53-year-old female with a PMHx of IDDM1, Gastroparesis, HTN, DLP, JERAD, Asthma, Hx of TIA, GERD s/p Gretchen Fundoplication / Celiac disease / Hx of Gastritis and bleed (2014), who presented to the hospit al with nausea and vomiting that started 3 days prior. She was found to be in DKA. This is her 4th episode of DKA in 1 month. Has not had any DKAs in the past. Most recently admitted to the hospital on 07/13-07/14 for DKA. At that point, patient etiology DKA was unclear. Patient was evaluated for any septic source or any cardiac etiology, all of which was negative. She had full resolution of her symptoms and was discharged home with outpatient follow-up with her primary care provider, surgery and endocrinology. She has an apponintment with [facility] on 08/08 unfortunately a day after going home her symptoms again started. DKA has resolved now All IV meds and fluids have been DC'd She is tolerating consistent carbohydrate diet No more nausea or vomiting at this point Again counseling done regarding ambulation in the room are on the unit Continue present meds (3) GERD (gastroesophageal reflux disease) Status: Chronic Problem Text: Patient had significantly decreased, nausea and vomiting Is probably worsened secondary to previous gastric sleeve surgery's reflex esophagitis, and fundoplication but also contributory factors. Patient's sedentary lifestyle Again ambulation was a highly recommended to prevent reflux as patient has a severe reflux esophagitis Continue PPIs as per orders (4) JERAD (obstructive sleep apnea) Status: Chronic Problem Text: , History of JERAD Continue CPAP from home (5) CKD (chronic kidney disease) Status: Chronic Problem Text: Secondary to diabetes mellitus Continue monitoring renal function (6) HTN (hypertension) Status: Chronic Problem Text: Continue present meds (7) Gastroparesis due to DM Status: Chronic Problem Text: Gastroparesis / Neuropathy c/w symptomatic control with Zofran and reglan. Plan/VTE VTE Prophylaxis Ordered?: Yes VS, I&O, 24H, Fishbone Vital Signs/I&O Vital Signs Date Time Temp Pulse Resp B/P (MAP) Pulse Ox O2 Delivery O2 Flow Rate FiO2 07/25/20 06:40 98.4 82 17 125/73 (90) 98 Room Air I&O- Last 24 Hours up to 6 AM 07/26/19 06:00 Intake Total 850 ml Output Total 1000 ml Balance -150 ml Laboratory Data 24H LABS Laboratory Tests 2 07/25/19 11:49: Bedside Glucose (Misc Panel) 325H 07/25/19 16:59: Bedside Glucose (Misc Panel) 138H 07/25/19 20:44: Bedside Glucose (Misc Panel) 228H 07/26/19 06:02: Immature Granulocyte % (Auto) 0.5, Neutrophils (%) (Auto) 54.3, Lymphocytes (%) (Auto) 28.7, Monocytes (%) (Auto) 9.5H, Eosinophils (%) (Auto) 5.4H, Basophils (%) (Auto) 1.6H, Neutrophils # (Auto) 2.4, Lymphocytes # (Auto) 1.3L, Monocytes # (Auto) 0.4, Eosinophils # (Auto) 0.2, Basophils # (Auto) 0.1, Nucleated Red Blood Cells % (auto) 0.0, Anion Gap 7L, Glomerular Filtration Rate > 60.0, Calcium Level 7.8L, Magnesium Level 1.8, Total Bilirubin 0.2, Aspartate Amino Transf (AST/SGOT) 65H, Alanine Aminotransferase (ALT/SGPT) 69, Alkaline Phosphatase 124H, Total Protein 5.0L, Albumin 1.9L, Albumin/Globulin Ratio 0.6L 07/26/19 11:40: Bedside Glucose (Misc Panel) 169H CBC/BMP Laboratory Tests 07/26/19 06:02 Microbiology Microbiology 07/19/19 Urine Culture - Final, Complete 07/19/19 Blood Culture - Final, Complete NO GROWTH AFTER 5 DAYS 07/18/19 Blood Culture - Final, Complete NO GROWTH AFTER 5 DAYS GERI CHANG MD Jul 26, 2019 11:50
[2019-07-26 14:28] VITALS: BP 106/61
[2019-07-26 20:34] VITALS: BP 145/76
[2019-07-26] MEDS: RAMELTEON 8 MG TAB (ROZEREM) PO SCH (21:19)
[2019-07-27 05:27] VITALS: BP 144/74
[2019-07-27] MEDS: HEPARIN SOD (PORCINE) 5000UNITS/ML VIAL (J1644 PER 1000UNITS) SC SCH (05:51)
[2019-07-27] MEDS: SODIUM CHLORIDE 0.9% INJ 10 ML SYR IV SCH (05:51)
[2019-07-27 06:09] LABS: BASO # 0.1 10^3/uL (0.0-0.2); EOS # 0.2 10^3/uL (0.0-0.5); EOS % 4.9 % (0.0-3.0); HEMATOCRIT 27.9 % (36.0-47.0); HEMOGLOBIN 9.2 g/dl (12.0-15.5); LYMPH # 1.6 10^3/uL (1.5-5.0); LYMPH % 39.7 % (24.0-44.0); MEAN CORPUSCULAR HEMOGLOBIN 31.8 pg (27.0-33.0); MEAN CORPUSCULAR VOLUME 96.5 fl (80.0-96.0); MONO # 0.5 10^3/uL (0.0-0.8); MONO % 11.1 % (0.0-5.0); NEUTROPHILS # 1.7 10^3/uL (1.5-8.5); NEUTROPHILS % 41.8 % (36.0-66.0); PLATELET COUNT, AUTOMATED 274 10^3/uL (150-450); RED BLOOD COUNT 2.89 10^6/uL (4.00-5.40); WHITE BLOOD COUNT 4.1 10^3/uL (4.0-10.0)
[2019-07-27 06:44] LABS: ALBUMIN 1.9 GM/DL (3.2-5.2); ALT/SGPT 81 U/L (12-78); BILIRUBIN,TOTAL 0.2 MG/DL (0.2-1.0); BLOOD UREA NITROGEN 13 MG/DL (7-18); CALCIUM LEVEL 8.1 MG/DL (8.5-10.1); CARBON DIOXIDE LEVEL 29 MEQ/L (21-32); CHLORIDE LEVEL 101 MEQ/L (98-107); CREATININE FOR GFR 0.82 MG/DL (0.55-1.30); GLOMERULAR FILTRATION RATE > 60.0 (>51); GLUCOSE, FASTING 408 MG/DL (70-100); POTASSIUM SERUM 4.3 MEQ/L (3.5-5.1); SODIUM LEVEL 134 MEQ/L (136-145); TOTAL PROTEIN 4.9 GM/DL (6.4-8.2)
[2019-07-27] MEDS: HumaLOG INSULIN (NovoLOG) PER UNIT SC SCH (06:48)
[2019-07-27] MEDS: LEVEMIR (INSULIN DETEMIR) 1 UNITS/0.01ML SC SCH (09:57)
[2019-07-27] MEDS: PANTOPRAZOLE 40MG TAB (PROTONIX) PO SCH (09:57)
[2019-07-27] MEDS: ASPIRIN 81 MG ENTERIC TAB PO SCH (09:57)
[2019-07-27] MEDS: clonazePAM 1 MG TAB PO SCH (09:57)
[2019-07-27] MEDS: SUCRALFATE SUSP 1GM/10ML UD PO SCH (09:59)
[2019-07-27] MEDS ORDERED: SUCR1TA PO (10:02)
[2019-07-27] MEDS ORDERED: METOCLOPRAMIDE 10 MG TAB PO SCH (12:00)
--- NOTE | 2019-07-27 23:51 | DS.PDOC ---
Discharge Summary General Date of Admission Jul 18, 2019 at 22:32 Date of Discharge 07/27/19 Discharge Summary PROCEDURES PERFORMED DURING STAY: [None]. DISCHARGE DIAGNOSES: DKA Diabetic Gastroparesis Severe Reflux esophagitis Hiatal hernia H/O Sleeve gastrectomy with moderate stenosis dilated on 06/22/19 SECONDARY DIAGNOSIS: IDDM1, Gastroparesis, HTN, DLP, JERAD, Asthma, Hx of TIA, GERD s/p Gretchen Fundopl ication, Hiatal hernia sliding type, Celiac disease, Gastritis , anxiety, depression, Neuropathy, vit D def, h/o Obesity s/p gastric sleeve surgery, H/o biliary tree obstruction with sludge s/p ERCP and sphincterotomy in 06/2018 COMPLICATIONS/CHIEF COMPLAINT: DKA. HISTORY OF PRESENT ILLNESS: See History and physical HOSPITAL COURSE: Patient is a 53-year-old female with a PMHx of IDDM1, Gastroparesis, HTN, DLP, JERAD, Asthma, Hx of TIA, GERD s/p Gretchen Fundoplication / Celiac disease / Hx of Gastritis and bleed (2014), who presented to the hospital with nausea and vomiting that started 3 days prior. She was found to be in DKA. This is her 4th episode of DKA in 1 month. Has not had any DKAs in the past. Most recently admitted to the hospital on 07/13-07/14 for DKA. At that point, patient etiology DKA was unclear. Patient was evaluated for any septic source or any cardiac etiology, all of which was negative. She had full resolution of her symptoms and was discharged home with outpatient follow-up with her primary care provider, surgery and endocrinology. She has an appointment with [facility] on 08/08 unfortunately a day after going home her symptoms again started and then she was admitted with DKA. Even after resolution of her DKA her sugars have been difficult to control with wide fluctuations during the day form 50 to 400. Her dietary habit noted to be inappropriate for her gastroparesis/ GERD / hiatal hernia and reflux esophagitis. She continued to have persistent nausea and intermittent vomiting through out the hospitalization. She was extensively counselled regarding gastroparesis diet. Diabetic ketoacidosis resolved continue home insulins, trulicity Neuropathy lyrica, gabapentin, tizanidine, percocet, methocarbomol Persistent nausea and vomiting due to gastroparesis, Reflux esophagitis, hiatal hernia. EGD on 06/22/19: LA Grade D reflux esophagitis. Rule out Ren's esophagus. Biopsied. Medium-sized hiatal hernia. A sleeve gastrectomy was found, characterized by moderate stenosis. Dilated. Normal ampulla, duodenal bulb, second portion of the duodenum and area of the papilla. to follow gastroparesis diet continue zofran and promethazine at home. PPI and Sucralfate Follow up GI as per outpatient appointment. Gastroparesis / Neuropathy c/w symptomatic control HTN continue home meds. DLP statin JERAD CPAP Asthma No evidence of exacerbation c/w inhaled therapy Vitamin D deficiency Hx of TIA continue ASA, statin Anxiety / Depression/ insomnia c/w Clonazepam , fluoxetine, trazodone GERD s/p Gretchen Fundoplication / Celiac disease/ Hiatal hernia PPI DISCHARGE MEDICATIONS: Please see below. ALLERGIES: Please see below. PHYSICAL EXAMINATION ON DISCHARGE: VITAL SIGNS: Please see below. General: Sitting up in bed, in no discomfort, speaking in full sentences, AAOx3 HEENT: NC, AT, PERRLA, EOMI CVS: regular S1 and S2, no rub or gallop. Lungs: Fair air entry bilaterally, No appreciable wheezing / rales / rhonchi Abdomen: Soft, Non-distended,tender in the epigastrium, bowel sounds normal Extremities: No lower extremity edema, No calf tenderness Neuro: No focal motor or sensory deficit Skin: No visible rashes LABORATORY DATA: Please see below. IMAGING: Small Bowel follow through: There are multiple linear ulcerations in the esophagus with irregular mucosa. These are new findings compared to a previous study performed on 06/21/2019. There is a sliding type hiatal hernia. There is gastroesophageal reflux de monstrated to the level of the thoracic inlet. These findings are consistent with reflux esophagitis, however, early malignancy cannot be ruled out. Recommend endoscopy for further evaluati ACTIVITY: [As tolerated]. DIET: Gstroparesis diet DISPOSITION: 01 Home, Self-Care. DISCHARGE INSTRUCTIONS: PMD in 1 week DISCHARGE CONDITION: [Stable]. TIME SPENT ON DISCHARGE: 35 minutes. Vital Signs/I&Os Vital Signs Date Time Temp Pulse Resp B/P (MAP) Pulse Ox O2 Delivery O2 Flow Rate FiO2 07/27/19 05:27 98.6 90 17 144/74 (97) 95 Room Air I&O- Last 24 Hours up to 6 AM 07/27/19 07:00 Intake Total 3510 ml Output Total 3350 ml Balance 160 ml Laboratory Data Labs 24H Laboratory Tests 2 07/27/19 05:28: Bedside Glucose (Misc Panel) 357H 07/27/19 05:54: Immature Granulocyte % (Auto) 0.5, Neutrophils (%) (Auto) 41.8, Lymphocytes (%) (Auto) 39.7, Monocytes (%) (Auto) 11.1H, Eosinophils (%) (Auto) 4.9H, Basophils (%) (Auto) 2.0H, Neutrophils # (Auto) 1.7, Lymphocytes # (Auto) 1.6, Monocytes # (Auto) 0.5, Eosinophils # (Auto) 0.2, Basophils # (Auto) 0.1, Nucleated Red Blood Cells % (auto) 0.0 07/27/19 05:55: Anion Gap 4L, Glomerular Filtration Rate > 60.0, Calcium Level 8.1L, Total Bilirubin 0.2, Aspartate Amino Transf (AST/SGOT) 118H, Alanine Aminotransferase (ALT/SGPT) 81H, Alkaline Phosphatase 119H, Total Protein 4.9L, Albumin 1.9L, Albumin/Globulin Ratio 0.6L 07/27/19 08:50: Bedside Glucose (Misc Panel) 303H 07/27/19 11:54: Bedside Glucose (Misc Panel) 244H CBC/BMP Laboratory Tests 07/27/19 05:54 07/27/19 05:55 FSBS Laboratory Tests Test 07/27/19 05:28 07/27/19 08:50 07/27/19 11:54 Range/Units Bedside Glucose (Misc Panel) 357 303 244 70-105 MG/DL Microbiology Microbiology 07/19/19 Urine Culture - Final, Complete 07/19/19 Blood Culture - Final, Complete NO GROWTH AFTER 5 DAYS 07/18/19 Blood Culture - Final, Complete NO GROWTH AFTER 5 DAYS Discharge Medications Scheduled Aspirin (Aspirin EC) 81 Mg Tabec, 81 MG PO DAILY, (Reported) Atorvastatin Calcium (Atorvastatin Calcium) 20 Mg Tablet, 20 MG PO DAILY, (Reported) Cholecalciferol (Vitamin D3) (Vitamin D3) 1,000 Unit Tablet, 1,000 UNITS PO DAILY, (Reported) Clonazepam (Clonazepam) 1 Mg Tablet, 1 MG PO TID, (Reported) Dulaglutide (Trulicity) 1.5 Mg/0.5 Ml Pen.injctr, 1.5 MG SC Q7D, (Reported) Ferrous Sulfate (Ferrous Sulfate) 325 Mg Tab, 325 MG PO DAILY, (Reported) Fluoxetine Hcl (Fluoxetine HCl) 20 Mg Capsule, 20 MG PO DAILY, (Reported) Insulin Aspart (Niacinamide) (Fiasp 100 Unit/ml Flextouch) 100 Unit/1 Ml Insuln.pen, 1 DOSE SC AC, (Reported) PER SLIDING SCALE Insulin Degludec (Tresiba Flextouch U-100) 100 Unit/1 Ml Insuln.pen, 30 UNIT SC DAILY, (Reported) Methocarbamol (Methocarbamol) 500 Mg Tablet, 500 MG PO BID, (Reported) Multivitamins (Thera M Plus Tablet) 1 Tab Tab, 1 TAB PO DAILY, (Reported) Pantoprazole Sodium (Pantoprazole Sodium) 40 Mg Tablet.dr, 40 MG PO BID, (Rep orted) Pregabalin (Pregabalin) 75 Mg Capsule, 75 MG PO BID, (Reported) Sucralfate (Sucralfate) 1 Gm Tablet, 1 GM PO ACHS Varenicline (Chantix) 1 Mg Tablet, 1 MG PO BID, (Reported) Scheduled PRN Albuterol Sulfate (Ventolin Hfa) 108 Mcg/Act Aer, 2 PUFFS INH Q4H PRN for SHORTNESS OF BREATH, (Reported) Ammonium Lactate (Ammonium Lactate) 12 % Cre, 1 DOSE TOP DAILY PRN for PAIN, (Reported) APPLY TO FEET Docusate Sodium (Colace) 100 Mg Cap, 100 MG PO BID PRN for CONSTIPATION, (Reported) Glucagon,Human Recombinant (Glucagon Emergency Kit) 1 Mg Kit, 1 MG IM ASDIRECTED PRN for LOW BLOOD SUGAR, (Reported) Lidocaine (Lidocaine) 120 Gm Oint...g., 1 DOSE TOP DAILY PRN for BACK PAIN, (Reported) Ondansetron (Ondansetron Odt) 4 Mg Tab.rapdis, 4 MG PO Q6H PRN for NAUSEA OR VOMITING, (Reported) Oxycodone HCl/Acetaminophen (Oxycodone-Acetaminophen 5-325) 1 Each Tablet, 1 TAB PO BID PRN for PAIN, (Reported) Polyethylene Glycol 3350 (Miralax) 119 Gm Powder, 17 GM PO DAILY PRN for CONSTIPATION, (Reported) Promethazine HCl (Promethazine HCl) 25 Mg Tablet, 25 MG PO Q6H PRN for NAUSEA OR VOMITING, (Reported) Propylene Glycol/Peg 400 (Systane 0.3-0.4% Eye Drops) 15 Ml Sade, 1 DROP OU QID PRN for DRY EYES, (Reported) Sodium Chloride ([place]) 0.65 % Spr, 2 SPRAY NA QID PRN for NASAL DRYNESS, (Reported) Tizanidine HCl (Tizanidine HCl) 4 Mg Tablet, 4 MG PO TID PRN for MUSCLE SPASMS, (Reported) Trazodone HCl (Trazodone HCl) 50 Mg Tablet, 50 MG PO QHS PRN for SLEEP, (Reported) Allergies Coded Allergies: TAPE (Verified Allergy, Mild, PLASTIC TAPE- RASH, 07/06/19) BANDAIDS -RASH prednisone (Verified Adverse Reaction, Intermediate, EXTREME ELEVATED BLOOD SUGAR, 07/06/19) Gluten Flour (Verified Adverse Reaction, Mild, diarrhea, 07/06/19) gluten (Verified Adverse Reaction, Mild, DIARRHEA, 07/06/19) JUANITA JAEGER MD Jul 27, 2019 23:51
== END 2019-07-27 12:18 | disposition home or self-care (01) | DRG 638 ==
LOC: M ED 20:22 → M ED INP 22:32 → ENRESERV 22:54 → M ICU 23:23 → M MS5PR 07-21 01:23
PROVIDERS: ADMIT Internal Medicine; ATTEND Internal Medicine Nephrology
DX: E10.10 Type 1 diabetes mellitus with ketoacidosis without coma (principal); K22.10 Ulcer of esophagus without bleeding; E10.43 Type 1 diabetes mellitus with diabetic autonomic (poly)neuropathy; I10 Essential (primary) hypertension; J45.909 Unspecified asthma, uncomplicated; K31.84 Gastroparesis; K21.9 Gastro-esophageal reflux disease without esophagitis; Z86.73 Personal history of transient ischemic attack (TIA), and cerebral infarction without residual deficits; G47.33 Obstructive sleep apnea (adult) (pediatric); K44.9 Diaphragmatic hernia without obstruction or gangrene; E55.9 Vitamin D deficiency, unspecified; F41.9 Anxiety disorder, unspecified; F32.9 Major depressive disorder, single episode, unspecified; K90.0 Celiac disease; Z79.899 Other long term (current) drug therapy; Z88.8 Allergy status to other drugs, medicaments and biological substances

== ENCOUNTER 2019-08-06 08:13 | Inpatient (IN) | payer OTHER, MEDICAID ==
[~2019-08-06] VITALS: Ht 162.6 cm; Wt 58.8 kg
[2019-08-06] VITALS (7 sets, daily range): BP systolic 112–160; BP diastolic 59–80
[~2019-08-06 08:13] MED LIST changes: +SUCR1TA PO
[2019-08-06] MEDS ORDERED: FURO20TA2 PO (08:28)
[2019-08-06] MEDS ORDERED: NS 500 ML IV ONE (09:00)
[2019-08-06] MEDS ORDERED: ONDANSETRON 4MG/2ML VIAL IV ONE (09:00)
[2019-08-06] MEDS ORDERED: ONDANSETRON 4 MG ORAL DISINTEGRATING TAB PO ONE (09:30)
[2019-08-06] MEDS ORDERED: LIDOCAINE 1% MDV 20ML VIAL As Ordered ONE ×2 (10:54→15:23)
[2019-08-06] MEDS ORDERED: ISOVUE-300 61% 50ML VIAL As Ordered ONE ×2 (11:44→15:23)
[2019-08-06 12:42] LABS: VENOUS BASE EXCESS -15.4 (-2.0-2.0); VENOUS HCO3 10.9 MEQ/L (23.0-27.0); VENOUS PARTIAL PRESSURE CO2 27.3 mmHg (38.0-50.0); VENOUS PARTIAL PRESSURE O2 64.5 mmHg (30.0-50.0); VENOUS PH 7.218 UNITS (7.330-7.430); VENOUS STANDARD HCO3 12.7 MEQ/L; VENOUS TOTAL CO2 11.7 MEQ/L (24.0-28.0)
[2019-08-06] MEDS ORDERED: D5W/0.9% SODIUM CHLORIDE 1,000 ML IV SCH (12:45)
[2019-08-06 12:48] LABS: BASO # 0.1 10^3/uL (0.0-0.2); BASO % 1.4 % (0.0-1.0); EOS % 0.3 % (0.0-3.0); HEMATOCRIT 34.4 % (36.0-47.0); HEMOGLOBIN 10.9 g/dl (12.0-15.5); LYMPH # 1.2 10^3/uL (1.5-5.0); LYMPH % 15.7 % (24.0-44.0); MEAN CORPUSCULAR HEMOGLOBIN 32.1 pg (27.0-33.0); MEAN CORPUSCULAR HGB CONC 31.7 g/dl (32.0-36.5); MEAN CORPUSCULAR VOLUME 101.2 fl (80.0-96.0); MONO # 0.6 10^3/uL (0.0-0.8); MONO % 7.1 % (0.0-5.0); NEUTROPHILS # 5.9 10^3/uL (1.5-8.5); NEUTROPHILS % 74.4 % (36.0-66.0); PLATELET COUNT, AUTOMATED 385 10^3/uL (150-450); WHITE BLOOD COUNT 7.9 10^3/uL (4.0-10.0)
[2019-08-06 13:16] LABS: BLOOD UREA NITROGEN 11 MG/DL (7-18); CALCIUM LEVEL 8.8 MG/DL (8.5-10.1); CARBON DIOXIDE LEVEL 12 MEQ/L (21-32); CHLORIDE LEVEL 110 MEQ/L (98-107); CREATININE FOR GFR 0.92 MG/DL (0.55-1.30); GLOMERULAR FILTRATION RATE > 60.0 (>51); GLUCOSE, FASTING 223 MG/DL (70-100); POTASSIUM SERUM 3.9 MEQ/L (3.5-5.1); SODIUM LEVEL 140 MEQ/L (136-145)
--- NOTE | 2019-08-06 13:16 | REP ---
MIDLINE INSERTION WITH ULTRASOUND GUIDANCE: REASON FOR EXAM: No peripheral access PROCEDURE: Midline catheter insertion under ultrasound guidance. This procedure was performed by SARAH Cosby, under the direct supervision of Dr. Manuel. The risks and benefits of the procedure were explained to the patient and informed consent was obtained prior to the procedure both verbally and written. Directly prior to the start of the procedure, a formal timeout was completed in the procedure room. The right basilic vein was localized using ultrasound guidance. The skin was prepped and draped in a sterile fashion. 1% lidocaine 10 mg/ml was used as a local anesthetic. Using ultrasound guidance the right basilic vein was cannulated and a 0.018 guidewire was inserted. The needle was removed and a 5.5 Kyrgyz dilator and a Peel-Away sheath was inserted over the guidewire. A 5.5 [place]z dual lumen catheter was cut to the length of 12 cm. The dilator was removed and the catheter was inserted over the guidewire. The Peel-Away sheath was removed. No good blood return was visualized, a so the catheter was injected with 8 ml of a 50, 50 solution containing 4 ml of Isovue 300 and 4 ml of sterile saline. Contrast was seen flowing through the catheter and into the vessel. The catheter was flushed with heparinized saline as per hospital protocol. The catheter was affixed to the skin and a sterile dressing was applied. The patient tolerated the procedure well and there were no immediate complications. 0.6 minutes of fluoroscopy time was utilized for this procedure. Some fluoroscopic images are performed with last image hold technology. These images require no additional radiation. Reviewed by SARAH Mahajan 08/06/2019 12:33 P Electronically Signed by Ahsan Manuel MD 08/06/2019 01:08 P
[2019-08-06] MEDS ORDERED: ATOR40TA75 PO (13:44)
[2019-08-06] MEDS ORDERED: SUCR1ORA2 PO (13:44)
[2019-08-06 14:48] LABS: HEMOGLOBIN A1c 9.7 %
[2019-08-06] MEDS: ONDANSETRON 4MG/2ML VIAL IV PRN (15:15)
[2019-08-06] MEDS ORDERED: LACTIC ACID 12% LOTION 225 GM BTL TOP PRN (15:30)
[2019-08-06] MEDS ORDERED: MIRALAX *UNIT DOSE* 17GM PACKET PO PRN (15:30)
[2019-08-06] MEDS ORDERED: SODIUM CHLORIDE NASAL 0.65% SPRAY BTL (OCEAN) PRN (15:30)
[2019-08-06] MEDS ORDERED: POLYVINYL ALCOHOL OPHTH SOLN 15 ML(LIQUITEARS) OU PRN (15:30)
[2019-08-06] MEDS ORDERED: GLUCOSE 4GM CHEW TABLET PO PRN (15:30)
[2019-08-06] MEDS ORDERED: GLUCAGON INJ 1MG VIAL SC PRN (15:30)
[2019-08-06] MEDS ORDERED: ALBUTEROL 90 MCG/ACT 8GM HFA INHALER INH PRN (15:30)
[2019-08-06] MEDS: SUCRALFATE SUSP 1GM/10ML UD PO SCH ×2 (16:09→20:44)
[2019-08-06] MEDS: clonazePAM 1 MG TAB PO SCH ×2 (16:09→20:44)
--- NOTE | 2019-08-06 17:08 | REP ---
Midline catheter exchanged for a PICC line. The procedure was performed by SARAH Cosby, under the direct supervision of Dr. Manuel. The risks and benefits of the procedure were explained to the patient and informed consent was obtained both verbally and written. Directly prior to the start of the procedure, a formal timeout was completed in the procedure room. The patient already has a midline catheter in the right basilic vein that was inserted earlier today. A 0.018 guidewire was inserted into the preexisting midline catheter and advanced to the SVC using fluoroscopic guidance. The midline catheter was removed and a 5.5 Afghan dilator and peel-away sheath was inserted over the guidewire. A 5.5 Afghan dual lumen catheter was cut to the length of 35 cm. The dilator was removed and the catheter was inserted over the guide wire with the tip ending in the SVC. The peel-away sheath was removed and the catheter was flushed with heparinized saline as per hospital protocol. The catheter was affixed to the skin and a sterile dressing was applied. The patient tolerated the procedure well and there were no immediate complications. 0.1 minutes of fluoroscopy time was utilized for this procedure. Some fluoroscopic images are performed with last image hold technology. These images require no additional radiation. Reviewed by SARAH Mahajan 08/06/2019 04:03 P Electronically Signed by Ahsan Manuel MD 08/06/2019 04:59 P
[2019-08-06] MEDS ORDERED: HumaLOG INSULIN (NovoLOG) PER UNIT SC ONE (17:45)
[2019-08-06] MEDS ORDERED: NS 1,000 ML IV SCH (17:45)
[2019-08-06] MEDS ORDERED: SODIUM CHLORIDE 0.9% 1000ML IV ONE (17:45)
[2019-08-06 17:52] LABS: ALBUMIN 2.7 GM/DL (3.2-5.2); PHOSPHORUS LEVEL 2.7 MG/DL (2.5-4.9)
[2019-08-06] MEDS ORDERED: HumaLOG INSULIN (NovoLOG) PER UNIT SC SCH (18:00)
[2019-08-06] MEDS ORDERED: SODIUM CHLORIDE 0.9% INJ 10 ML SYR IV PRN (18:00)
[2019-08-06] MEDS: SODIUM CHLORIDE 0.9% INJ 10 ML SYR IV SCH (18:00)
[2019-08-06 18:39] LABS: VENOUS BASE EXCESS -28.4 (-2.0-2.0); VENOUS HCO3 3.4 MEQ/L (23.0-27.0); VENOUS PARTIAL PRESSURE O2 83.8 mmHg (30.0-50.0); VENOUS PH 6.889 UNITS (7.330-7.430); VENOUS STANDARD HCO3 5.1 MEQ/L; VENOUS TOTAL CO2 3.9 MEQ/L (24.0-28.0)
[2019-08-06 19:13] LABS: CALCIUM LEVEL 8.3 MG/DL (8.5-10.1); CREATININE FOR GFR 1.3 MG/DL (0.55-1.30); GLOMERULAR FILTRATION RATE 45.3 (>51); POTASSIUM SERUM 5.3 MEQ/L (3.5-5.1)
[2019-08-06] MEDS ORDERED: INSULIN REGULAR IN 0.9 % NACL 100 UNIT in IV 1 EA IV SCH ×2 (19:33)
[2019-08-06] MEDS ORDERED: LEVEMIR (INSULIN DETEMIR) 1 UNITS/0.01ML SC ONE (19:45)
[2019-08-06 20:25] LABS: VENOUS BASE EXCESS -27.2 (-2.0-2.0); VENOUS HCO3 3.1 MEQ/L (23.0-27.0); VENOUS O2 SATURATION 98.5 % (60.0-80.0); VENOUS PARTIAL PRESSURE CO2 14.4 mmHg (38.0-50.0); VENOUS PARTIAL PRESSURE O2 135.8 mmHg (30.0-50.0); VENOUS PH 6.954 UNITS (7.330-7.430); VENOUS STANDARD HCO3 5.6 MEQ/L; VENOUS TOTAL CO2 3.6 MEQ/L (24.0-28.0)
[2019-08-06] MEDS ORDERED: IPRATROPIUM 0.5MG/ALBUTEROL 2.5MG INH SOL UD 3ML (DUONEB) NEB PRN (20:30)
--- NOTE | 2019-08-06 20:34 | ECGEPIP ---
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
[2019-08-06 20:40] LABS: CALCIUM LEVEL 7.4 MG/DL (8.5-10.1); CREATININE FOR GFR 1.06 MG/DL (0.55-1.30); GLOMERULAR FILTRATION RATE 57.3 (>51)
[2019-08-06] MEDS: methocarbamoL 500 MG TAB PO SCH (20:44)
[2019-08-06] MEDS: PANTOPRAZOLE 40MG TAB (PROTONIX) PO SCH (20:44)
[2019-08-06] MEDS: PREGABALIN 75 MG CAP(LYRICA) PO SCH (20:44)
[2019-08-06] MEDS: INSULIN IV RATE CHANGE DOCUMENTATION ML/HR XX SCH ×3 (20:45→22:07)
[2019-08-06] MEDS: D5W/0.45% SODIUM CHLORIDE 1,000 ML IV SCH (22:04)
--- NOTE | 2019-08-06 23:59 | HPEPDOC ---
[facility] Medical History & Physical Date of Admission Aug 06, 2019 Date of Service: Aug 06, 2019 Primary Care Physician: Leonard Sotomayor M.D. Attending Physician: POLI AGUILAR DO History and Physical CHIEF COMPLAINT: Significant nausea, vomiting, intolerance to any oral intake HISTORY OF PRESENT ILLNESS: Ms. Sierra has been admitted multiple times recently for treatment of DKA. Apparently she has had significant troubles with gastroparesis, and then 1 year ago a gastric sleeve surgery was performed, and she apparently got worse thereafter. In the past couple months she has now gotten to the point where she is not able to tolerate much of anything by mouth. I called and discussed her case with her PCP Dr. Leonard Sotomayor. The plan is to acutely correct her DKA once again, and then at that time she'll be started on TPN nutrition via PICC line. He has already called, spoken to, and arranged for her to have some style of corrective surgery to her stomach in [place], which will be arranged for by him after her discharge from the hospital. CODE STATUS: Full code PAST MEDICAL HISTORY: Insulin-dependent diabetes mellitus type 1 Gastroparesis Hypertension Dyslipidemia Obstructive sleep apnea Asthma History of TIA GERD status post Gretchen fundoplication Celiac disease History of gastritis and bleed-2015 Anxiety and depression PAST SURGICAL HISTORY: Gretchen fundoplication Gastric sleeve 2014 Colonoscopy and EGD ERCP with papillotomy and balloon sweep-2018 Cholecystectomy Appendectomy Hysterectomy SOCIAL HISTORY: Former smoker, denies alcohol or illicit drug use. FAMILY HISTORY: Mother of heart attack REVIEW OF SYSTEMS: Constitutional: Patient denies fevers, chills, night sweats HEENT: Patient denies blurred or double vision, transient visual disturbances, postnasal drip, epistaxis, sore throat, difficulty chewing or swallowing food, but she does have trouble keeping food down.. Cardiovascular: Patient denies chest discomfort/pain, palpitations, exertional dyspnea, orthopnea, edema of the extremities, claudication. Respiratory: Patient denies dyspnea, wheezing, cough, hemoptysis, sputum production. Gastrointestinal: Patient admits to nausea, vomiting, diarrhea, abdominal pain. Denies melena, hematochezia, hematemesis, jaundice. PHYSICAL EXAMINATION: General: Awake, alert, oriented 3. She does appear to be weak/tired, but she is not in acute distress at this time. HEENT: Head normocephalic atraumatic, conjunctiva are pink, sclera are nonicteric, buccal mucosa is pink and moist with no lesions in the oropharynx. Hearing is grossly intact to conversation. Respiratory: Only minimal wheezes throughout, I cannot appreciate any rales, or rhonchi. Cardiovascular: Regular rate and rhythm, with no rubs, gallops, or murmur. Abdomen: Soft, minimally tender throughout, nondistended, no hepatosplenomegaly appreciated. Extremities: 2+ pulses in the radial and dorsalis pedis bilaterally. No evidence of clubbing or cyanosis. ASSESSMENT: Diabetic ketoacidosis Insulin-dependent diabetes mellitus type 1 -Originally admitted to PCU given that her labs are not terrible when she arrived in the ED. However, her first set of repeat labs revealed that she had progressed into DKA, therefore she was transferred to the ICU started on insulin drip, appropriate fluids, and will be checking glucose every hour, BMP every 4 hours, and adjusting as appropriate. Malnutrition secondary to inability to tolerate any by mouth intake -PICC line placed. -Dietary evaluation has been requested, and their recommendations for TPN were "45 mL/hour 24 hours with 500 mL of 20% ILE and 20 mL/hour x 24hrs. This provides 1767 kcals/d, 54g protein/d meeting >100% of caloric needs and 98% of estimated protein needs." -Since the patient went back into DKA however, will not start an TPA until this is resolved. Thus the order has not yet been placed. Gastroparesis -Follow up with PCP Dr. Sotomayor upon discharge to schedule surgery. Anxiety & Depression -Continue home dose of clonazepam and fluoxetine Hypertension -Continue home dose of Lasix Chronic pain -Continue home dose of methocarbamol, Percocet, pregabalin, and tizanidine History of TIA -Continue home dose of atorvastatin Asthma -Continue home dose of inhalers. Doing labs ordered and every 2 hours PRN GERD status post Gretchen fundoplication & sleeve gastrectomy -Continue home dose of Protonix DVT prophylaxis -Lovenox Vital Signs Vital Signs Date Time Temp Pulse Resp B/P (MAP) Pulse Ox O2 Delivery O2 Flow Rate FiO2 08/06/19 22:00 104 120/59 (79) 99 Room Air 08/06/19 21:00 98.7 30 Laboratory Data Labs 24H Laboratory Tests 2 08/06/19 08:32: Bedside Glucose (Misc Panel) 330H 08/06/19 09:04: POC pH (Misc Panel) 7.174*L, POC Base Excess (Misc Panel) -23.0L, POC Saturated Percent O2 (Misc) 98, POC pO2 (Misc Panel) 117.0H, POC pCO2 (Misc Panel) 14.0*L, POC HCO3 (Misc Panel) 5.2L, POC Total CO2 (Misc Panel) 6.0L 08/06/19 09:17: POC Total CO2 (Misc Panel) 9.0L, POC Glucose (Misc Panel) 249H, POC Sodium (Misc Panel) 139, POC Potassium (Misc Panel) 5.6H, POC Chloride (Misc Panel) 114H, POC Blood Urea Nitrogen (Misc Panel 16, POC Ionized Calcium (Misc Panel) 4.7, POC Creatinine (Misc Panel) 0.8, POC Hematocrit (Misc Panel) 40.0 08/06/19 12:26: Bedside Glucose (Misc Panel) 219H 08/06/19 12:28: Immature Granulocyte % (Auto) 1.1, Neutrophils (%) (Auto) 74.4H, Lymphocytes (%) (Auto) 15.7L, Monocytes (%) (Auto) 7.1H, Eosinophils (%) (Auto) 0.3, Basophils (%) (Auto) 1.4H, Neutrophils # (Auto) 5.9, Lymphocytes # (Auto) 1.2L, Monocytes # (Auto) 0.6, Eosinophils # (Auto) 0.0, Basophils # (Auto) 0.1, Nucleated Red Blood Cells % (auto) 0.0, Blood Gas Bicarbonate Standard 12.7, Venous Blood pH 7.218L, Venous Blood Partial Pressure CO2 27.3L, Venous Blood Partial Pressure O2 64.5H, Venous Blood Total Carbon Dioxide 11.7L, Venous Blood HCO3 10.9L, Venous Blood Oxygen Saturation 92.0H, Venous Blood Base Excess -15.4L, Anion Gap 18H, Glomerular Filtration Rate > 60.0, Estimated Mean Plasma Glucose 232H, Hemoglobin A1c 9.7, Calcium Level 8.8, Phosphorus Level 2.7, Albumin 2.7L 08/06/19 16:07: Bedside Glucose (Misc Panel) 512*H 6/26/20 17:24: Bedside Glucose (Misc Panel) 561*H 08/06/19 17:47: Bedside Glucose (Misc Panel) 564*H 08/06/19 18:34: Bedside Glucose Confirm (Misc) 611*H, Blood Gas Bicarbonate Standard 5.1, Venous Blood pH 6.889L, Venous Blood Partial Pressure CO2 18.0L, Venous Blood Partial Pressure O2 83.8H, Venous Blood Total Carbon Dioxide 3.9L, Venous Blood HCO3 3.4L, Venous Blood Oxygen Saturation 92.0H, Venous Blood Base Excess -28.4L, Anion Gap 25H, Glomerular Filtration Rate 45.3L, Calcium Level 8.3L 08/06/19 18:38: Bedside Glucose (Misc Panel) 555*H 08/06/19 18:54: Bedside Glucose (Misc Panel) 509*H 08/06/19 19:18: Bedside Glucose (Misc Panel) 464H 08/06/19 19:33: Blood Gas Bicarbonate Standard 5.6, Venous Blood pH 6.954L, Venous Blood Partial Pressure CO2 14.4L, Venous Blood Partial Pressure O2 135.8H, Venous Blood Total Carbon Dioxide 3.6L, Venous Blood HCO3 3.1L, Venous Blood Oxygen Saturation 98.5H, Venous Blood Base Excess -27.2L, Anion Gap 24H, Glomerular Filtration Rate 57.3, Calcium Level 7.4L 08/06/19 20:21: Bedside Glucose (Misc Panel) 356H 08/06/19 21:00: Bedside Glucose (Misc Panel) 272H 08/06/19 22:06: Bedside Glucose (Misc Panel) 148H 08/06/19 23:04: Bedside Glucose (Misc Panel) 97 CBC/BMP Laboratory Tests 08/06/19 12:28 08/06/19 18:34 08/06/19 19:33 Home Medications Scheduled Aspirin (Aspirin EC) 81 Mg Tabec, 81 MG PO DAILY Atorvastatin Calcium (Atorvastatin Calcium) 40 Mg Tablet, 40 MG PO DAILY Cholecalciferol (Vitamin D3) (Vitamin D3) 1,000 Unit Tablet, 1,000 UNITS PO DAILY Clonazepam (Clonazepam) 1 Mg Tablet, 1 MG PO TID Ferrous Sulfate (Ferrous Sulfate) 325 Mg Tab, 325 MG PO DAILY Fluoxetine Hcl (Fluoxetine HCl) 20 Mg Capsule, 20 MG PO DAILY Furosemide (Furosemide) 20 Mg Tablet, 20 MG PO DAILY Insulin Aspart (Niacinamide) (Fiasp 100 Unit/ml Flextouch) 100 Unit/1 Ml Insuln.pen, 1 DOSE SC AC PER SLIDING SCALE Insulin Degludec (Tresiba Flextouch U-100) 100 Unit/1 Ml Insuln.pen, 20 UNIT SC DAILY Methocarbamol (Methocarbamol) 500 Mg Tablet, 500 MG PO BID Multivitamins (Thera M Plus Tablet) 1 Tab Tab, 1 TAB PO DAILY Pantoprazole Sodium (Pantoprazole Sodium) 40 Mg Tablet.dr, 40 MG PO BID Pregabalin (Pregabalin) 75 Mg Capsule, 75 MG PO BID Sucralfate (Sucralfate) 1 Gm/10 Ml Oral.susp, 10 ML PO ACHS Scheduled PRN Albuterol Sulfate (Ventolin Hfa) 108 Mcg/Act Aer, 2 PUFFS INH Q4H PRN for SHORTNESS OF BREATH Ammonium Lactate (Ammonium Lactate) 12 % Cre, 1 DOSE TOP DAILY PRN for PAIN APPLY TO FEET Docusate Sodium (Colace) 100 Mg Cap, 100 MG PO BID PRN for CONSTIPATION Glucagon,Human Recombinant (Glucagon Emergency Kit) 1 Mg Kit, 1 MG IM ASDIRECTED PRN for LOW BLOOD SUGAR Ondansetron (Ondansetron Odt) 4 Mg Tab.rapdis, 4 MG PO Q6H PRN for NAUSEA OR VOMITING Oxycodone HCl/Acetaminophen (Oxycodone-Acetaminophen 5-325) 1 Each Tablet, 1 TAB PO BID PRN for PAIN Polyethylene Glycol 3350 (Miralax) 119 Gm Powder, 17 GM PO DAILY PRN for CONSTIPATION Promethazine HCl (Promethazine HCl) 25 Mg Tablet, 25 MG PO Q6H PRN for NAUSEA OR VOMITING Propylene Glycol/Peg 400 (Systane 0.3-0.4% Eye Drops) 15 Ml Sade, 1 DROP OU QID PRN for DRY EYES Sodium Chloride ([place]) 0.65 % Spr, 2 SPRAY NA QID PRN for NASAL DRYNESS Tizanidine HCl (Tizanidine HCl) 4 Mg Tablet, 4 MG PO TID PRN for MUSCLE SPASMS Allergies Coded Allergies: TAPE (Verified Allergy, Mild, PLASTIC TAPE- RASH, 07/06/19) BANDAIDS -RASH prednisone (Verified Adverse Reaction, Intermediate, EXTREME ELEVATED BLOOD SUGAR, 07/06/19) Gluten Flour (Verified Adverse Reaction, Mild, diarrhea, 07/06/19) gluten (Verified Adverse Reaction, Mild, DIARRHEA, 07/06/19) A-FIB/CHADSVASC A-FIB History Current/History of A-Fib/PAF?: No Current PO Anticoag Therapy: No POLI AGUILAR DO Aug 06, 2019 23:59
[2019-08-07] VITALS (12 sets, daily range): BP systolic 104–145; BP diastolic 58–76
[2019-08-07 00:20] LABS: VENOUS BASE EXCESS -14.2 (-2.0-2.0); VENOUS HCO3 11.4 MEQ/L (23.0-27.0); VENOUS O2 SATURATION 93.9 % (60.0-80.0); VENOUS PARTIAL PRESSURE CO2 26.2 mmHg (38.0-50.0); VENOUS PARTIAL PRESSURE O2 66.3 mmHg (30.0-50.0); VENOUS PH 7.257 UNITS (7.330-7.430); VENOUS STANDARD HCO3 13.4 MEQ/L; VENOUS TOTAL CO2 12.2 MEQ/L (24.0-28.0)
[2019-08-07 00:41] LABS: CALCIUM LEVEL 8.4 MG/DL (8.5-10.1); CREATININE FOR GFR 1.12 MG/DL (0.55-1.30); GLOMERULAR FILTRATION RATE 53.8 (>51); POTASSIUM SERUM 3.8 MEQ/L (3.5-5.1)
[2019-08-07] MEDS: DEXTROSE 50% 50 ML SYRINGE IV PRN (02:11)
[2019-08-07 04:14] LABS: VENOUS HCO3 16.7 MEQ/L (23.0-27.0); VENOUS PARTIAL PRESSURE CO2 35.5 mmHg (38.0-50.0); VENOUS PARTIAL PRESSURE O2 77.5 mmHg (30.0-50.0); VENOUS PH 7.291 UNITS (7.330-7.430); VENOUS STANDARD HCO3 17.2 MEQ/L; VENOUS TOTAL CO2 17.8 MEQ/L (24.0-28.0)
[2019-08-07 04:48] LABS: CALCIUM LEVEL 8.2 MG/DL (8.5-10.1); CREATININE FOR GFR 1.05 MG/DL (0.55-1.30); GLOMERULAR FILTRATION RATE 57.9 (>51); PHOSPHORUS LEVEL 3.1 MG/DL (2.5-4.9); POTASSIUM SERUM 3.6 MEQ/L (3.5-5.1)
[2019-08-07] MEDS: SODIUM CHLORIDE 0.9% INJ 10 ML SYR IV SCH ×2 (06:00→18:36)
[2019-08-07] MEDS: HumaLOG INSULIN (NovoLOG) PER UNIT SC SCH ×4 (07:30→21:00)
[2019-08-07] MEDS: PANTOPRAZOLE 40MG TAB (PROTONIX) PO SCH ×2 (08:08→21:11)
[2019-08-07] MEDS: VITAMIN D 1,000 INTERNATIONAL UNITS TABLET PO SCH (08:08)
[2019-08-07] MEDS: SUCRALFATE SUSP 1GM/10ML UD PO SCH ×4 (08:08→21:11)
[2019-08-07] MEDS: ATORVASTATIN 20 MG TAB PO SCH (08:08)
[2019-08-07] MEDS: clonazePAM 1 MG TAB PO SCH ×3 (08:09→21:11)
[2019-08-07] MEDS: methocarbamoL 500 MG TAB PO SCH ×2 (08:09→21:11)
[2019-08-07] MEDS: FUROSEMIDE 20 MG TAB PO SCH (08:09)
[2019-08-07] MEDS: PREGABALIN 75 MG CAP(LYRICA) PO SCH ×2 (08:09→21:11)
[2019-08-07 08:10] LABS: VENOUS BASE EXCESS -8.1 (-2.0-2.0); VENOUS HCO3 17.1 MEQ/L (23.0-27.0); VENOUS O2 SATURATION 91.5 % (60.0-80.0); VENOUS PARTIAL PRESSURE CO2 34.2 mmHg (38.0-50.0); VENOUS PARTIAL PRESSURE O2 59.4 mmHg (30.0-50.0); VENOUS PH 7.318 UNITS (7.330-7.430); VENOUS STANDARD HCO3 17.8 MEQ/L; VENOUS TOTAL CO2 18.2 MEQ/L (24.0-28.0)
[2019-08-07] MEDS: LEVEMIR (INSULIN DETEMIR) 1 UNITS/0.01ML SC SCH ×3 (08:10→21:12)
[2019-08-07] MEDS: ENOXAPARIN 40MG/0.4ML SYRINGE (J1650 PER 10MG) SC SCH (08:10)
[2019-08-07] MEDS: ONDANSETRON 4MG/2ML VIAL IV PRN (08:11)
[2019-08-07] MEDS: FLUoxetine 20 MG CAP PO SCH (08:15)
[2019-08-07 08:35] LABS: CREATININE FOR GFR 1.1 MG/DL (0.55-1.30); GLOMERULAR FILTRATION RATE 54.9 (>51); POTASSIUM SERUM 3.8 MEQ/L (3.5-5.1)
--- NOTE | 2019-08-07 11:24 | IPNPDOC ---
Subjective Date Seen The patient was seen on 08/07/19. Subjective Chief Complaint/HPI Patient is comfortable in no distress. Offers no new complaints fingerstick blood sugar 70 this morning General: Denies: ROS Unobtainable, Chills, Night Sweats, Fatigue, Malaise, Normal Appetite, Other Symptoms Constitutional: Denies: Chills, Fever, Malaise, Night Sweats, Weakness, Fatigue, Weight Loss, Lethargy, Other Eyes: Denies: Pain, Vision change, Conjunctivae inflammation, Eyelid inflammation, Redness, Other Pulmonary: Denies: Dyspnea, Cough, Pleuritic Chest Pain, Other Symptoms Cardiovascular: Denies: Chest Pain, Palpitations, Orthopnea, Paroxysmal Noc. Dyspnea, Edema, Lt Headedness, Other Symptoms Gastrointestinal: Denies: Nausea, Vomiting, Abdominal Pain, Diarrhea, Constipation, Melena, Hematochezia, Other Symptoms Musculoskeletal: Denies: Neck Pain, Back Pain, Shoulder Pain, Arm Pain, Hand Pain, Leg Pain, Foot Pain, Joint Pain, Muscle Pain, Spasms, Other Symptoms Neurological: Denies: Weakness, Numbness, Incoordination, Change in speech, Confusion, Seizures, Other Symptoms Objective Physical Examination General Exam: Positive: Alert, Cooperative Eye Exam: Positive: PERRLA, Conjunctiva & lids normal ENT Exam: Positive: Atraumatic Neck Exam: Positive: Supple, JVD Chest Exam: Positive: Clear to auscultation, Normal air movement Heart Exam: Positive: Rate Normal, Normal S1 Abdomen Exam: Positive: Normal bowel sounds Extremity Exam: Positive: Normal pulses Skin Exam: Positive: Nl turgor and temperature Neuro Exam: Positive: Strength at 5/5 X4 ext, Cranial Nerves 3-12 NL Psych Exam: Positive: Mood NL, Oriented x 3 Assessment /Plan Problems (1) Diabetic ketoacidosis Status: Acute Problem Text: Patient's fingerstick blood sugar was 70 this morning Insulin infusion has been DC'd IV fluids have been DC'd Patient is started on consistent carbohydrate diet with coverage Will change insulin Levemir to 10 units subcutaneous every 12 hours as per patient's home dosage She possibly can be discharged home tomorrow DC to [facility] floor DC telemetry Plan discharge in a.m. (2) HTN (hypertension) Status: Chronic Problem Text: Continue home medications (3) CKD (chronic kidney disease) Status: Chronic Problem Text: Stable continue home meds (4) GERD (gastroesophageal reflux disease) Status: Chronic Problem Text: Continue home meds (5) JERAD (obstructive sleep apnea) Status: Chronic Problem Text: Patient was using her on CPAP (6) Gastroparesis due to DM Status: Chronic Problem Text: Continue current medications Plan/VTE VTE Prophylaxis Ordered?: Yes VS, I&O, 24H, Fishbone Vital Signs/I&O Vital Signs Date Time Temp Pulse Resp B/P (MAP) Pulse Ox O2 Delivery O2 Flow Rate FiO2 08/07/19 08:00 99.0 87 18 145/65 (91) 99 Room Air I&O- Last 24 Hours up to 6 AM 08/07/19 06:00 Intake Total 2187 ml Output Total 500 ml Balance 1687 ml Laboratory Data 24H LABS Laboratory Tests 2 08/06/19 12:26: Bedside Glucose (Misc Panel) 219H 08/06/19 12:28: Immature Granulocyte % (Auto) 1.1, Neutrophils (%) (Auto) 74.4H, Lymphocytes (%) (Auto) 15.7L, Monocytes (%) (Auto) 7.1H, Eosinophils (%) (Auto) 0.3, Basophils (%) (Auto) 1.4H, Neutrophils # (Auto) 5.9, Lymphocytes # (Auto) 1.2L, Monocytes # (Auto) 0.6, Eosinophils # (Auto) 0.0, Basophils # (Auto) 0.1, Nucleated Red Blood Cells % (auto) 0.0, Blood Gas Bicarbonate Standard 12.7, Venous Blood pH 7.218L, Venous Blood Partial Pressure CO2 27.3L, Venous Blood Partial Pressure O2 64.5H, Venous Blood Total Carbon Dioxide 11.7L, Venous Blood HCO3 10.9L, Venous Blood Oxygen Saturation 92.0H, Venous Blood Base Excess -15.4L, Anion Gap 18H, Glomerular Filtration Rate > 60.0, Estimated Mean Plasma Glucose 232H, Hemoglobin A1c 9.7, Calcium Level 8.8, Phosphorus Level 2.7, Albumin 2.7L 08/06/19 16:07: Bedside Glucose (Misc Panel) 512*H 08/06/19 17:24: Bedside Glucose (Misc Panel) 561*H 08/06/19 17:47: Bedside Glucose (Misc Panel) 564*H 08/06/19 18:34: Bedside Glucose Confirm (Misc) 611*H, Blood Gas Bicarbonate Standard 5.1, Venous Blood pH 6.889L, Venous Blood Partial Pressure CO2 18.0L, Venous Blood Partial Pressure O2 83.8H, Venous Blood Total Carbon Dioxide 3.9L, Venous Blood HCO3 3.4L, Venous Blood Oxygen Saturation 92.0H, Venous Blood Base Excess -28.4L, Anion Gap 25H, Glomerular Filtration Rate 45.3L, Calcium Level 8.3L 08/06/19 18:38: Bedside Glucose (Misc Panel) 555*H 08/06/19 18:54: Bedside Glucose (Misc Panel) 509*H 08/06/19 19:18: Bedside Glucose (Misc Panel) 464H 08/06/19 19:33: Blood Gas Bicarbonate Standard 5.6, Venous Blood pH 6.954L, Venous Blood Partial Pressure CO2 14.4L, Venous Blood Partial Pressure O2 135.8H, Venous Blood Total Carbon Dioxide 3.6L, Venous Blood HCO3 3.1L, Venous Blood Oxygen Saturation 98.5H, Venous Blood Base Excess -27.2L, Anion Gap 24H, Glomerular Filtration Ra te 57.3, Calcium Level 7.4L 08/06/19 20:21: Bedside Glucose (Misc Panel) 356H 08/06/19 21:00: Bedside Glucose (Misc Panel) 272H 08/06/19 22:06: Bedside Glucose (Misc Panel) 148H 08/06/19 23:04: Bedside Glucose (Misc Panel) 97 08/07/19 00:00: Blood Gas Puncture Site UNKNOWN, Blood Gas Bicarbonate Standard 13.4, Venous Blood pH 7.257L, Venous Blood Partial Pressure CO2 26.2L, Venous Blood Partial P ressure O2 66.3H, Venous Blood Total Carbon Dioxide 12.2L, Venous Blood HCO3 11.4L, Venous Blood Oxygen Saturation 93.9H, Venous Blood Base Excess -14.2L, Anion Gap 14, Glomerular Filtration Rate 53.8, Calcium Level 8.4L 08/07/19 00:04: Bedside Glucose (Misc Panel) 80 08/07/19 01:07: Bedside Glucose (Misc Panel) 76 08/07/19 02:05: Bedside Glucose (Misc Panel) 65L 08/07/19 02:49: Bedside Glucose (Misc Panel) 114H 08/07/19 04:03: Blood Gas Puncture Site UNKNOWN, Blood Gas Bicarbonate Standard 17.2, Venous Blood pH 7.291L, Venous Blood Partial Pressure CO2 35.5L, Venous Blood Partial Pressure O2 77.5H, Venous Blood Total Carbon Dioxide 17.8L, Venous Blood HCO3 16.7L, Venous Blood Oxygen Saturation 96.0H, Venous Blood Base Excess -9.0L, Anion Gap 11, Glomerular Filtration Rate 57.9, Calcium Level 8.2L, Phosphorus Level 3.1 08/07/19 04:04: Bedside Glucose (Misc Panel) 84 08/07/19 05:09: Bedside Glucose (Misc Panel) 70 08/07/19 06:18: Bedside Glucose (Misc Panel) 73 08/07/19 07:23: Bedside Glucose (Misc Panel) 70 08/07/19 08:02: Blood Gas Puncture Site UNKNOWN, Blood Gas Bicarbonate Standard 17.8, Venous Blood pH 7.318L, Venous Blood Partial Pressure CO2 34.2L, Venous Blood Partial Pressure O2 59.4H, Venous Blood Total Carbon Dioxide 18.2L, Venous Blood HCO3 17.1L, Venous Blood Oxygen Saturation 91.5H, Venous Blood Base Excess -8.1L, Anion Gap 10, Glomerular Filtration Rate 54.9, Calcium Level 8.0L CBC/BMP Laboratory Tests 08/06/19 12:28 08/06/19 18:34 08/06/19 19:33 08/07/19 00:00 08/07/19 04:03 08/07/19 08:02 GERI CHANG MD Aug 07, 2019 11:24
[2019-08-07 11:46] LABS: MAGNESIUM LEVEL 1.8 MG/DL (1.8-2.4)
[2019-08-07] MEDS: ASPIRIN 81 MG ENTERIC TAB PO SCH (12:24)
[2019-08-07] MEDS: MULTIVITAMINS/MINERALS THERAP 1 TAB PO SCH (12:24)
[2019-08-07] MEDS: FERROUS SULFATE 325MG TAB PO SCH (12:24)
[2019-08-07] MEDS: D5W/0.45% SODIUM CHLORIDE 1,000 ML IV SCH (13:59)
[2019-08-07] MEDS ORDERED: LORazepam 1 MG TAB PO PRN (18:45)
[2019-08-07] MEDS: THIAMINE 100 MG TAB PO SCH (21:11)
[2019-08-08] MEDS: D5W/0.45% SODIUM CHLORIDE 1,000 ML IV SCH ×2 (02:44→15:38)
[2019-08-08 04:00] VITALS: BP 153/80
[2019-08-08] MEDS: SODIUM CHLORIDE 0.9% INJ 10 ML SYR IV SCH ×2 (05:16→18:20)
[2019-08-08] MEDS: ONDANSETRON 4MG/2ML VIAL IV PRN ×2 (05:21→22:24)
[2019-08-08 06:00] VITALS: BP 153/80
[2019-08-08 06:33] LABS: BASO # 0.1 10^3/uL (0.0-0.2); BASO % 1.6 % (0.0-1.0); EOS # 0.2 10^3/uL (0.0-0.5); EOS % 4.1 % (0.0-3.0); HEMATOCRIT 33.3 % (36.0-47.0); HEMOGLOBIN 10.5 g/dl (12.0-15.5); LYMPH # 1.6 10^3/uL (1.5-5.0); LYMPH % 33.1 % (24.0-44.0); MEAN CORPUSCULAR HEMOGLOBIN 31.7 pg (27.0-33.0); MEAN CORPUSCULAR HGB CONC 31.5 g/dl (32.0-36.5); MEAN CORPUSCULAR VOLUME 100.6 fl (80.0-96.0); MONO # 0.3 10^3/uL (0.0-0.8); MONO % 5.9 % (0.0-5.0); NEUTROPHILS # 2.7 10^3/uL (1.5-8.5); NEUTROPHILS % 54.9 % (36.0-66.0); PLATELET COUNT, AUTOMATED 225 10^3/uL (150-450); RED BLOOD COUNT 3.31 10^6/uL (4.00-5.40); WHITE BLOOD COUNT 4.9 10^3/uL (4.0-10.0)
[2019-08-08 06:55] LABS: ALBUMIN 2.2 GM/DL (3.2-5.2); ALT/SGPT 44 U/L (12-78); BILIRUBIN,TOTAL 0.4 MG/DL (0.2-1.0); BLOOD UREA NITROGEN 9 MG/DL (7-18); CALCIUM LEVEL 8.4 MG/DL (8.5-10.1); CARBON DIOXIDE LEVEL 19 MEQ/L (21-32); CHLORIDE LEVEL 110 MEQ/L (98-107); CREATININE FOR GFR 0.89 MG/DL (0.55-1.30); GLOMERULAR FILTRATION RATE > 60.0 (>51); GLUCOSE, FASTING 86 MG/DL (70-100); POTASSIUM SERUM 3.2 MEQ/L (3.5-5.1); SODIUM LEVEL 139 MEQ/L (136-145); TOTAL PROTEIN 5.3 GM/DL (6.4-8.2)
[2019-08-08] MEDS: HumaLOG INSULIN (NovoLOG) PER UNIT SC SCH ×4 (07:30→21:00)
[2019-08-08] MEDS: ASPIRIN 81 MG ENTERIC TAB PO SCH (08:10)
[2019-08-08] MEDS: SUCRALFATE SUSP 1GM/10ML UD PO SCH ×4 (08:10→22:25)
[2019-08-08] MEDS: PANTOPRAZOLE 40MG TAB (PROTONIX) PO SCH ×2 (08:10→22:25)
[2019-08-08] MEDS: FUROSEMIDE 20 MG TAB PO SCH (08:10)
[2019-08-08] MEDS: FLUoxetine 20 MG CAP PO SCH (08:10)
[2019-08-08] MEDS: methocarbamoL 500 MG TAB PO SCH ×2 (08:11→22:24)
[2019-08-08] MEDS: THIAMINE 100 MG TAB PO SCH ×2 (08:11→22:24)
[2019-08-08] MEDS: ATORVASTATIN 20 MG TAB PO SCH (08:11)
[2019-08-08] MEDS: clonazePAM 1 MG TAB PO SCH ×3 (08:11→22:24)
[2019-08-08] MEDS: FOLIC ACID 1 MG TAB PO SCH (08:11)
[2019-08-08] MEDS: FERROUS SULFATE 325MG TAB PO SCH (08:11)
[2019-08-08] MEDS: MULTIVITAMINS/MINERALS THERAP 1 TAB PO SCH (08:11)
[2019-08-08] MEDS: VITAMIN D 1,000 INTERNATIONAL UNITS TABLET PO SCH (08:11)
[2019-08-08] MEDS: PREGABALIN 75 MG CAP(LYRICA) PO SCH ×2 (08:11→22:24)
[2019-08-08] MEDS: ENOXAPARIN 40MG/0.4ML SYRINGE (J1650 PER 10MG) SC SCH (08:13)
[2019-08-08] MEDS: LEVEMIR (INSULIN DETEMIR) 1 UNITS/0.01ML SC SCH ×2 (08:32→22:24)
[2019-08-08] MEDS ORDERED: POTASSIUM CHLORIDE 10 MEQ SR TABLET PO ONE (09:00)
[2019-08-08] MEDS ORDERED: MULTIVITAMINS/MINERALS THERAP 1 TAB PO SCH (09:00)
--- NOTE | 2019-08-08 11:36 | IPNPDOC ---
Subjective Date Seen The patient was seen on 08/08/19. Subjective Chief Complaint/HPI According to patient, she is feeling foggy and confused, she is awake, alert, oriented 3, and she told me that she has not taken any alcohol since long time. According to patient, she thinks she is not ready to go home today General: Reports: Fatigue; Denies: ROS Unobtainable, Chills, Night Sweats, Malaise, Normal Appetite, Other Symptoms Constitutional: Reports: Weakness; Denies: Chills, Fever, Malaise, Night Sweats, Fatigue, Weight Loss, Lethargy, Other Pulmonary: Denies: Dyspnea, Cough, Pleuritic Chest Pain, Other Symptoms Cardiovascular: Denies: Chest Pain, Palpitations, Orthopnea, Paroxysmal Noc. Dyspnea, Edema, Lt Headedness, Other Symptoms Gastrointestinal: Denies: Nausea, Vomiting, Abdominal Pain, Diarrhea, Const ipation, Melena, Hematochezia, Other Symptoms Musculoskeletal: Denies: Neck Pain, Back Pain, Shoulder Pain, Arm Pain, Hand Pain, Leg Pain, Foot Pain, Joint Pain, Muscle Pain, Spasms, Other Symptoms Neurological: Denies: Weakness, Numbness, Incoordination, Change in speech, Confusion, Seizures, Other Symptoms Objective Physical Examination General Exam: Positive: Alert, Cooperative Eye Exam: Positive: PERRLA, Conjunctiva & lids normal ENT Exam: Positive: Atraumatic Neck Exam: Positive: Supple, JVD Chest Exam: Positive: Clear to auscultation, Normal air movement Heart Exam: Positive: Rate Normal, Normal S1 Abdomen Exam: Positive: Normal bowel sounds Extremity Exam: Positive: Normal pulses Skin Exam: Positive: Nl turgor and temperature Neuro Exam: Positive: Strength at 5/5 X4 ext, Cranial Nerves 3-12 NL Psych Exam: Positive: Mood NL, Oriented x 3 Assessment /Plan Problems (1) Diabetic ketoacidosis Status: Acute Problem Text: Patient's fingerstick blood sugar was 70 this morning Insulin infusion has been DC'd IV fluids have been DC'd Patient is started on consistent carbohydrate diet with coverage Will change insulin Levemir to 10 units subcutaneous every 12 hours as per patient's home dosage She possibly can be discharged home tomorrow Patient's blood sugars are excellent at the present time as well as her blood work Patient complaining of confusion and fogginess and she does not think she is ready to go home today And also patient claims that she has not had drink for a long time Will DC CIWA Protocol and When Necessary Ativan. She As She Is Already on Multiple Medication Including Benzodiazepine Muscle Relaxant and Neuropathic Agents will request PT consult today Hopefully will be able to discharge her home tomorrow (2) HTN (hypertension) Status: Chronic Problem Text: Continue home medications (3) CKD (chronic kidney disease) Status: Chronic Problem Text: Stable continue home meds (4) GERD (gastroesophageal reflux disease) Status: Chronic Problem Text: Continue home meds (5) JERAD (obstructive sleep apnea) Status: Chronic Problem Text: Patient was using her on CPAP (6) Gastroparesis due to DM Status: Chronic Problem Text: Continue current medications (7) Hypokalemia Status: Acute Problem Text: Potassium supplemented. Given Repeat levels in a.m. Plan/VTE VTE Prophylaxis Ordered?: Yes VS, I&O, 24H, Fishbone Vital Signs/I&O Vital Signs Date Time Temp Pulse Resp B/P (MAP) Pulse Ox O2 Delivery O2 Flow Rate FiO2 08/08/19 06:00 97.2 70 20 153/80 (104) 95 08/07/19 14:00 Room Air I&O- Last 24 Hours up to 6 AM 08/08/19 06:00 Intake Total 1920 ml Output Total 1025 ml Balance 895 ml Laboratory Data 24H LABS Laboratory Tests 2 08/07/19 11:47: Bedside Glucose (Misc Panel) 204H 08/07/19 12:19: Bedside Glucose (Misc Panel) 250H 08/07/19 16:25: Bedside Glucose (Misc Panel) 298H 08/07/19 18:18: Bedside Glucose (Misc Panel) 341H 08/07/19 20:44: Bedside Glucose (Misc Panel) 155H 08/08/19 00:01: Bedside Glucose (Misc Panel) 278H 08/08/19 06:14: Immature Granulocyte % (Auto) 0.4, Neutrophils (%) (Auto) 54.9, Lymphocytes (%) (Auto) 33.1, Monocytes (%) (Auto) 5.9H, Eosinophils (%) (Auto) 4.1H, Basophils (%) (Auto) 1.6H, Neutrophils # (Auto) 2.7, Lymphocytes # (Auto) 1.6, Monocytes # (Auto) 0.3, Eosinophils # (Auto) 0.2, Basophils # (Auto) 0.1, Nucleated Red Blood Cells % (auto) 0.0, Anion Gap 10, Glomerular Filtration Rate > 60.0, Calcium Level 8.4L, Total Bilirubin 0.4, Aspartate Amino Transf (AST/SGOT) 111H, Alanine Aminotransferase (ALT/SGPT) 44, Alkaline Phosphatase 122H, Total Protein 5.3L, Albumin 2.2L, Albumin/Globulin Ratio 0.7L 08/08/19 08:26: Bedside Glucose (Misc Panel) 82 CBC/BMP Laboratory Tests 08/08/19 06:14 GERI CHANG MD Aug 08, 2019 11:36
[2019-08-08 22:00] VITALS: BP 135/74
[2019-08-09] MEDS: D5W/0.45% SODIUM CHLORIDE 1,000 ML IV SCH ×2 (03:05→17:27)
[2019-08-09 06:00] VITALS: BP 127/80
[2019-08-09] MEDS: SODIUM CHLORIDE 0.9% INJ 10 ML SYR IV SCH ×2 (06:00→17:28)
[2019-08-09 06:39] LABS: BASO # 0.1 10^3/uL (0.0-0.2); BASO % 2.1 % (0.0-1.0); EOS # 0.2 10^3/uL (0.0-0.5); EOS % 5.6 % (0.0-3.0); LYMPH # 1.2 10^3/uL (1.5-5.0); MEAN CORPUSCULAR HEMOGLOBIN 31.8 pg (27.0-33.0); MEAN CORPUSCULAR HGB CONC 32.3 g/dl (32.0-36.5); MEAN CORPUSCULAR VOLUME 98.7 fl (80.0-96.0); MONO # 0.2 10^3/uL (0.0-0.8); MONO % 5.6 % (0.0-5.0); NEUTROPHILS # 1.3 10^3/uL (1.5-8.5); NEUTROPHILS % 44.4 % (36.0-66.0); PLATELET COUNT, AUTOMATED 213 10^3/uL (150-450); RED BLOOD COUNT 3.14 10^6/uL (4.00-5.40); WHITE BLOOD COUNT 2.9 10^3/uL (4.0-10.0)
[2019-08-09 06:53] LABS: BLOOD UREA NITROGEN 10 MG/DL (7-18); CALCIUM LEVEL 7.9 MG/DL (8.5-10.1); CARBON DIOXIDE LEVEL 28 MEQ/L (21-32); CHLORIDE LEVEL 112 MEQ/L (98-107); CREATININE FOR GFR 0.68 MG/DL (0.55-1.30); GLOMERULAR FILTRATION RATE > 60.0 (>51); GLUCOSE, FASTING 82 MG/DL (70-100); POTASSIUM SERUM 3.1 MEQ/L (3.5-5.1); SODIUM LEVEL 145 MEQ/L (136-145)
[2019-08-09 06:54] LABS: ALBUMIN 1.9 GM/DL (3.2-5.2); ALT/SGPT 127 U/L (12-78); BILIRUBIN,TOTAL 0.2 MG/DL (0.2-1.0); MAGNESIUM LEVEL 1.8 MG/DL (1.8-2.4)
[2019-08-09] MEDS: HumaLOG INSULIN (NovoLOG) PER UNIT SC SCH ×4 (07:30→21:00)
[2019-08-09] MEDS: FOLIC ACID 1 MG TAB PO SCH (08:59)
[2019-08-09] MEDS: FLUoxetine 20 MG CAP PO SCH (08:59)
[2019-08-09] MEDS: THIAMINE 100 MG TAB PO SCH ×2 (08:59→21:56)
[2019-08-09] MEDS: PANTOPRAZOLE 40MG TAB (PROTONIX) PO SCH ×2 (08:59→21:56)
[2019-08-09] MEDS: MULTIVITAMINS/MINERALS THERAP 1 TAB PO SCH (08:59)
[2019-08-09] MEDS: FERROUS SULFATE 325MG TAB PO SCH (08:59)
[2019-08-09] MEDS: SUCRALFATE SUSP 1GM/10ML UD PO SCH ×4 (08:59→21:55)
[2019-08-09] MEDS: FUROSEMIDE 20 MG TAB PO SCH (08:59)
[2019-08-09] MEDS: ATORVASTATIN 20 MG TAB PO SCH (09:00)
[2019-08-09] MEDS: PREGABALIN 75 MG CAP(LYRICA) PO SCH ×2 (09:00→21:56)
[2019-08-09] MEDS: ASPIRIN 81 MG ENTERIC TAB PO SCH (09:00)
[2019-08-09] MEDS: methocarbamoL 500 MG TAB PO SCH ×2 (09:00→21:56)
[2019-08-09] MEDS: VITAMIN D 1,000 INTERNATIONAL UNITS TABLET PO SCH (09:00)
[2019-08-09] MEDS: clonazePAM 1 MG TAB PO SCH ×3 (09:00→21:56)
[2019-08-09] MEDS ORDERED: POTASSIUM CHLORIDE 10 MEQ SR TABLET PO SCH (09:00)
[2019-08-09] MEDS: LEVEMIR (INSULIN DETEMIR) 1 UNITS/0.01ML SC SCH ×2 (09:01→21:57)
[2019-08-09] MEDS: ENOXAPARIN 40MG/0.4ML SYRINGE (J1650 PER 10MG) SC SCH (09:02)
--- NOTE | 2019-08-09 11:03 | IPNPDOC ---
Subjective Date Seen The patient was seen on 08/09/19. Subjective Chief Complaint/HPI As per patient, she is very tired, fatigue and not feeling good, denies chest pain, shortness of breath or any hypoglycemic events General: Reports: Fatigue Constitutional: Reports: Weakness Pulmonary: Denies: Dyspnea, Cough, Pleuritic Chest Pain, Other Symptoms Cardiovascular: Denies: Chest Pain, Palpitations, Orthopnea, Paroxysmal Noc. Dyspnea, Edema, Lt Headedness, Other Symptoms Gastrointestinal: Denies: Nausea, Vomiting, Abdominal Pain, Diarrhea, Constipation, Melena, Hematochezia, Other Symptoms Genitourinary: Denies: Dysuria, Frequency, Incontinence, Hematuria, Retention, Other Symptoms Musculoskeletal: Denies: Neck Pain, Back Pain, Shoulder Pain, Arm Pain, Hand Pain, Leg Pain, Foot Pain, Joint Pain, Muscle Pain, Spasms, Other Symptoms Neurological: Denies: Weakness, Numbness, Incoordination, Change in speech, Confusion, Seizures, Other Symptoms Objective Physical Examination General Exam: Positive: Alert, Cooperative Chest Exam: Positive: Clear to auscultation, Normal air movement Heart Exam: Positive: Rate Normal, Normal S1 Abdomen Exam: Positive: Normal bowel sounds Extremity Exam: Positive: Normal pulses Skin Exam: Positive: Nl turgor and temperature Assessment /Plan Problems (1) Diabetic ketoacidosis Status: Resolved Problem Text: Patient's diabetic ketoacidosis has resolved She is on her home insulin dosage equivalent to Levemir 10 units subcutaneous twice a day with fingerstick under well control She still has a hypokalemia of for which she will be receiving supplement this morning and at nighttime and repeat level in a.m. Patient had a frequent admissions with DKA recently in this hospital I discussed with all the parties at interdisciplinary meeting regarding arrange a family meeting addressed this issue of her frequently, and back to hospital with DKA secondary to noncompliance and not seeking help with the specialized facility such as Dr. Gongora at [facility]. Physical therapy consult has been called to ambulate patient as she refuses to get out of bed (2) HTN (hypertension) Status: Chronic Problem Text: Continue home medications (3) CKD (chronic kidney disease) Status: Chronic Problem Text: Stable continue home meds (4) GERD (gastroesophageal reflux disease) Status: Chronic Problem Text: Continue home meds (5) JERAD (obstructive sleep apnea) Status: Chronic Problem Text: Patient was using her on CPAP (6) Gastroparesis due to DM Status: Chronic Problem Text: Continue current medications (7) Hypokalemia Status: Acute Problem Text: Potassium level is again low today. Her potassium is 3.1. She received 1 dose of KCl 40 mEq equal, as this morning I will order one more dose of 40 mEq this this evening Repeat levels has been ordered for tomorrow Plan/VTE VTE Prophylaxis Ordered?: Yes VS, I&O, 24H, Fishbone Vital Signs/I&O Vital Signs Date Time Temp Pulse Resp B/P (MAP) Pulse Ox O2 Delivery O2 Flow Rate FiO2 08/09/19 06:00 96.6 80 18 127/80 (96) 96 08/08/19 22:00 Room Air I&O- Last 24 Hours up to 6 AM 08/09/19 06:00 Intake Total 2125 ml Output Total 0 ml Balance 2125 ml Laboratory Data 24H LABS Laboratory Tests 2 08/08/19 11:22: Bedside Glucose (Misc Panel) 157H 08/08/19 16:37: Bedside Glucose (Misc Panel) 104 08/08/19 19:45: Bedside Glucose (Misc Panel) 82 08/09/19 06:07: Immature Granulocyte % (Auto) 0.3, Neutrophils (%) (Auto) 44.4, Lymphocytes (%) (Auto) 42.0, Monocytes (%) (Auto) 5.6H, Eosinophils (%) (Auto) 5.6H, Basophils (%) (Auto) 2.1H, Neutrophils # (Auto) 1.3L, Lymphocytes # (Auto) 1.2L, Monocytes # (Auto) 0.2, Eosinophils # (Auto) 0.2, Basophils # (Auto) 0.1, Nucleated Red Blood Cells % (auto) 0.0, Anion Gap 5L, Glomerular Filtration Rate > 60.0, Calci um Level 7.9L, Magnesium Level 1.8, Total Bilirubin 0.2, Aspartate Amino Transf (AST/SGOT) 332H, Alanine Aminotransferase (ALT/SGPT) 127H, Alkaline Phosphatase 164H, Total Protein 5.0L, Albumin 1.9L, Albumin/Globulin Ratio 0.6L CBC/BMP Laboratory Tests 08/09/19 06:07 GERI CHANG MD Aug 09, 2019 11:03
[2019-08-09] MEDS ORDERED: POTASSIUM CHLORIDE 10 MEQ SR TABLET PO ONE ×2 (13:00→21:00)
[2019-08-09 14:00] VITALS: BP 128/68
[2019-08-09] MEDS: PERCOCET 5MG/325MG TAB PO PRN (21:56)
[2019-08-09 22:00] VITALS: BP 126/70
[2019-08-10] MEDS: D5W/0.45% SODIUM CHLORIDE 1,000 ML IV SCH (04:17)
[2019-08-10] MEDS: SODIUM CHLORIDE 0.9% INJ 10 ML SYR IV SCH ×2 (05:52→18:45)
[2019-08-10 06:00] VITALS: BP 143/83
[2019-08-10 07:01] LABS: BASO # 0.1 10^3/uL (0.0-0.2); BASO % 1.7 % (0.0-1.0); EOS # 0.2 10^3/uL (0.0-0.5); EOS % 6.5 % (0.0-3.0); HEMATOCRIT 35.8 % (36.0-47.0); HEMOGLOBIN 11.5 g/dl (12.0-15.5); LYMPH # 1.8 10^3/uL (1.5-5.0); LYMPH % 51.1 % (24.0-44.0); MEAN CORPUSCULAR HEMOGLOBIN 32.2 pg (27.0-33.0); MEAN CORPUSCULAR HGB CONC 32.1 g/dl (32.0-36.5); MEAN CORPUSCULAR VOLUME 100.3 fl (80.0-96.0); MONO # 0.2 10^3/uL (0.0-0.8); MONO % 6.2 % (0.0-5.0); NEUTROPHILS # 1.2 10^3/uL (1.5-8.5); NEUTROPHILS % 33.9 % (36.0-66.0); PLATELET COUNT, AUTOMATED 229 10^3/uL (150-450); RED BLOOD COUNT 3.57 10^6/uL (4.00-5.40); WHITE BLOOD COUNT 3.6 10^3/uL (4.0-10.0)
[2019-08-10] MEDS: HumaLOG INSULIN (NovoLOG) PER UNIT SC SCH ×4 (07:30→21:00)
[2019-08-10 07:31] LABS: ALT/SGPT 187 U/L (12-78); BLOOD UREA NITROGEN 9 MG/DL (7-18); CALCIUM LEVEL 8.2 MG/DL (8.5-10.1); CARBON DIOXIDE LEVEL 29 MEQ/L (21-32); CHLORIDE LEVEL 110 MEQ/L (98-107); CREATININE FOR GFR 0.62 MG/DL (0.55-1.30); GLOMERULAR FILTRATION RATE > 60.0 (>51); GLUCOSE, FASTING 66 MG/DL (70-100); POTASSIUM SERUM 4.1 MEQ/L (3.5-5.1); SODIUM LEVEL 144 MEQ/L (136-145)
[2019-08-10 07:32] LABS: ALBUMIN 2.2 GM/DL (3.2-5.2); BILIRUBIN,TOTAL 0.2 MG/DL (0.2-1.0); TOTAL PROTEIN 5.4 GM/DL (6.4-8.2)
[2019-08-10] MEDS: ASPIRIN 81 MG ENTERIC TAB PO SCH (08:51)
[2019-08-10] MEDS: clonazePAM 1 MG TAB PO SCH ×3 (08:51→21:38)
[2019-08-10] MEDS: SUCRALFATE SUSP 1GM/10ML UD PO SCH ×4 (08:51→21:37)
[2019-08-10] MEDS: VITAMIN D 1,000 INTERNATIONAL UNITS TABLET PO SCH (08:52)
[2019-08-10] MEDS: FERROUS SULFATE 325MG TAB PO SCH (08:52)
[2019-08-10] MEDS: ATORVASTATIN 20 MG TAB PO SCH (08:52)
[2019-08-10] MEDS: FLUoxetine 20 MG CAP PO SCH (08:52)
[2019-08-10] MEDS: methocarbamoL 500 MG TAB PO SCH ×2 (08:52→21:37)
[2019-08-10] MEDS: PREGABALIN 75 MG CAP(LYRICA) PO SCH ×2 (08:52→21:38)
[2019-08-10] MEDS: THIAMINE 100 MG TAB PO SCH (08:52)
[2019-08-10] MEDS: FOLIC ACID 1 MG TAB PO SCH (08:52)
[2019-08-10] MEDS: PANTOPRAZOLE 40MG TAB (PROTONIX) PO SCH ×2 (08:52→21:38)
[2019-08-10] MEDS: FUROSEMIDE 20 MG TAB PO SCH (08:52)
[2019-08-10] MEDS: ONDANSETRON 4MG/2ML VIAL IV PRN (08:53)
[2019-08-10] MEDS: ENOXAPARIN 40MG/0.4ML SYRINGE (J1650 PER 10MG) SC SCH (08:53)
[2019-08-10] MEDS: MULTIVITAMINS/MINERALS THERAP 1 TAB PO SCH (08:53)
[2019-08-10] MEDS: LEVEMIR (INSULIN DETEMIR) 1 UNITS/0.01ML SC SCH ×2 (08:59→21:39)
[2019-08-10 14:00] VITALS: BP 116/73
[2019-08-10] MEDS ORDERED: AMINO AC/ELECTROLYTE/DEX/CALC 2,000 ML IV SCH (18:00)
[2019-08-10] MEDS ORDERED: FAT EMULSION IV 20% 500 ML IV SCH (18:00)
--- NOTE | 2019-08-10 18:09 | IPNPDOC ---
Subjective Date Seen The patient was seen on 08/10/19. Subjective Chief Complaint/HPI The patient is quite pleasant this morning. She reports that she is feeling somewhat better. She is tolerating some by mouth intake, although at 9 AM this morning she did require another dose of Zofran. General: Reports: Normal Appetite; Denies: Chills, Night Sweats, Fatigue, Malaise Constitutional: Denies: Chills, Fever, Night Sweats Pulmonary: Denies: Dyspnea, Cough Cardiovascular: Denies: Chest Pain, Palpitations, Orthopnea, Paroxysmal Noc. Dyspnea, Lt Headedness Gastrointestinal: Reports: Nausea (intermittently); Denies: Vomiting, Abdominal Pain, Diarrhea, Constipation Psych: Reports: Mood Normal; Denies: Depression, Memory Issues Objective Physical Examination General Exam: Positive: Alert, Cooperative, No Acute Distress Chest Exam: Positive: Clear to auscultation, Normal air movement Heart Exam: Positive: Rate Normal, Normal S1, Normal S2; Negative: Gallops, Murmurs, Rubs Abdomen Exam: Positive: Normal bowel sounds Extremity Exam: Positive: Normal pulses Skin Exam: Positive: Nl turgor and temperature Neuro Exam: Positive: Normal Speech Psych Exam: Positive: Mental status NL, Mood NL, Oriented x 3 Assessment /Plan Problems (1) Diabetic ketoacidosis Status: Resolved Problem Text: Patient's diabetic ketoacidosis has resolved She is on her home insulin dosage equivalent to Levemir 10 units subcutaneous twice a day with fingerstick under well control Patient had a frequent admissions with DKA recently in this hospital She has been unable to remain out of the hospital for longer than 2-3 weeks, sometimes the duration is even less than that. Having her return to the hospital so frequently is not a sustainable option, therefore she will be started on total parenteral nutrition at this time, and when she is stabilized and able to care for self at home she will be discharged home, and then she will be referred for referred for outpatient surgical intervention by her PCP (Dr. Leonard Sotomayor) who is also aware of this plan. (2) HTN (hypertension) Status: Chronic Problem Text: Continue home medications (3) CKD (chronic kidney disease) Status: Chronic Problem Text: Stable continue home meds (4) GERD (gastroesophageal reflux disease) Status: Chronic Problem Text: Continue home meds (5) JERAD (obstructive sleep apnea) Status: Chronic Problem Text: Patient was using her on CPAP (6) Gastroparesis due to DM Status: Chronic Problem Text: Continue current medications (7) Hypokalemia Status: Resolved Plan/VTE VTE Prophylaxis Ordered?: Yes Plan Once the TPN has been started, she is adequately trained on how to manage this, and arrangements have been made to such that she'll be able to get this at home, she will likely be ready for discharge. I have asked dietary to reassess her nutritional needs, and we will start her on TPN sometime today. VS, I&O, 24H, Fishbone Vital Signs/I&O Vital Signs Date Time Temp Pulse Resp B/P (MAP) Pulse Ox O2 Delivery O2 Flow Rate FiO2 08/10/19 14:00 98.9 91 18 116/73 (87) 96 Room Air I&O- Last 24 Hours up to 6 AM 08/10/19 06:00 Intake Total 2805 ml Output Total 1200 ml Balance 1605 ml Laboratory Data 24H LABS Laboratory Tests 2 08/09/19 21:29: Bedside Glucose (Misc Panel) 207H 08/10/19 06:09: Immature Granulocyte % (Auto) 0.6, Neutrophils (%) (Auto) 33.9L, Lymphocytes (%) (Auto) 51.1H, Monocytes (%) (Auto) 6.2H, Eosinophils (%) (Auto) 6.5H, Basophils (%) (Auto) 1.7H, Neutrophils # (Auto) 1.2L, Lymphocytes # (Auto) 1.8, Monocytes # (Auto) 0.2, Eosinophils # (Auto) 0.2, Basophils # (Auto) 0.1, Nucleated Red Blood Cells % (auto) 0.0, Anion Gap 5L, Glomerular Filtration Rate > 60.0, Calcium Level 8.2L, Magnesium Level 2.0, Total Bilirubin 0.2, Aspartate Amino Transf (AST/SGOT) 380H, Alanine Aminotransferase (ALT/SGPT) 187H, Alkaline Phosphatase 218H, Total Protein 5.4L, Albumin 2.2L, Albumin/Globulin Ratio 0.7L 08/10/19 11:18: Bedside Glucose (Misc Panel) 178H 08/10/19 16:15: Bedside Glucose (Misc Panel) 130H CBC/BMP Laboratory Tests 08/10/19 06:09 Microbiology Microbiology 6/29/20 Gastrointestinal Tract Panel (PCR) - Final, Complete POLI AGUILAR DO Aug 10, 2019 18:09
[2019-08-10 22:00] VITALS: BP 121/71
[2019-08-11 06:00] VITALS: BP 121/66
[2019-08-11] MEDS: SODIUM CHLORIDE 0.9% INJ 10 ML SYR IV SCH ×2 (06:00→18:18)
[2019-08-11 08:44] LABS: HEMATOCRIT 32.2 % (36.0-47.0); HEMOGLOBIN 10.3 g/dl (12.0-15.5); PLATELET COUNT, AUTOMATED 237 10^3/uL (150-450); RED BLOOD COUNT 3.22 10^6/uL (4.00-5.40); WHITE BLOOD COUNT 4.6 10^3/uL (4.0-10.0)
[2019-08-11] MEDS: HumaLOG INSULIN (NovoLOG) PER UNIT SC SCH ×4 (08:48→20:17)
[2019-08-11] MEDS: ENOXAPARIN 40MG/0.4ML SYRINGE (J1650 PER 10MG) SC SCH (08:48)
[2019-08-11] MEDS: LEVEMIR (INSULIN DETEMIR) 1 UNITS/0.01ML SC SCH ×2 (08:48→20:36)
[2019-08-11] MEDS: SUCRALFATE SUSP 1GM/10ML UD PO SCH ×4 (08:48→20:36)
[2019-08-11] MEDS: FERROUS SULFATE 325MG TAB PO SCH (08:49)
[2019-08-11] MEDS: MULTIVITAMINS/MINERALS THERAP 1 TAB PO SCH (08:49)
[2019-08-11] MEDS: PREGABALIN 75 MG CAP(LYRICA) PO SCH ×2 (08:49→20:36)
[2019-08-11] MEDS: VITAMIN D 1,000 INTERNATIONAL UNITS TABLET PO SCH (08:49)
[2019-08-11] MEDS: ASPIRIN 81 MG ENTERIC TAB PO SCH (08:49)
[2019-08-11] MEDS: PANTOPRAZOLE 40MG TAB (PROTONIX) PO SCH ×2 (08:49→20:36)
[2019-08-11] MEDS: methocarbamoL 500 MG TAB PO SCH ×2 (08:49→20:36)
[2019-08-11] MEDS: ATORVASTATIN 20 MG TAB PO SCH (08:49)
[2019-08-11] MEDS: FOLIC ACID 1 MG TAB PO SCH (08:50)
[2019-08-11] MEDS: FLUoxetine 20 MG CAP PO SCH (08:50)
[2019-08-11] MEDS: clonazePAM 1 MG TAB PO SCH ×3 (08:50→20:35)
[2019-08-11] MEDS: FUROSEMIDE 20 MG TAB PO SCH (08:50)
[2019-08-11 09:14] LABS: BLOOD UREA NITROGEN 14 MG/DL (7-18); CALCIUM LEVEL 8.3 MG/DL (8.5-10.1); CARBON DIOXIDE LEVEL 30 MEQ/L (21-32); CHLORIDE LEVEL 104 MEQ/L (98-107); CREATININE FOR GFR 0.68 MG/DL (0.55-1.30); GLOMERULAR FILTRATION RATE > 60.0 (>51); GLUCOSE, FASTING 121 MG/DL (70-100); POTASSIUM SERUM 4.4 MEQ/L (3.5-5.1); SODIUM LEVEL 141 MEQ/L (136-145)
[2019-08-11] MEDS: ONDANSETRON 4 MG ORAL DISINTEGRATING TAB PO PRN ×3 (10:49→20:36)
[2019-08-11 14:00] VITALS: BP 120/66
[2019-08-11] MEDS ORDERED: LIDOCAINE 2% MDV 20ML VIAL As Ordered ONE (15:13)
[2019-08-11] MEDS ORDERED: FAT EMULSION IV 20% 500 ML IV SCH (18:00)
[2019-08-11] MEDS ORDERED: MULTIVITAMIN -ADULT INJECTION 10 ML, CR/CU/SE/MN/ZN INJ 1 ML in AMINO AC/ELECTROLYTE/DE... IV SCH (18:00)
--- NOTE | 2019-08-11 19:20 | IPNPDOC ---
Subjective Date Seen The patient was seen on 08/11/19. Subjective Chief Complaint/HPI The patient lost her PICC line during the night last night, the events surrounding how this happened seemed to be incongruent depending on who you talk to, but in all instances it seems to have been inadvertent. The patient reports that she did receive TPN yesterday evening. She is amenable to having the PICC line replaced. She does continue to have intermittent nausea, but otherwise does not have any other complaints at this time. The remainder of her review of systems is negative. Objective Physical Examination General Exam: Positive: Alert, Cooperative, No Acute Distress Neck Exam: Negative: JVD Chest Exam: Positive: Clear to auscultation, Normal air movement Heart Exam: Positive: Rate Normal, Regular Rhythm; Negative: Gallops, Murmurs, Rubs Abdomen Exam: Positive: Normal bowel sounds Extremity Exam: Positive: Normal pulses; Negative: Clubbing, Cyanosis, Edema Skin Exam: Positive: Nl turgor and temperature Neuro Exam: Positive: Normal Speech Psych Exam: Positive: Mental status NL, Mood NL, Anxiety, Oriented x 3 Assessment /Plan Problems (1) Diabetic ketoacidosis Status: Resolved Problem Text: Patient's diabetic ketoacidosis has resolved She is on her home insulin dosage equivalent to Levemir 10 units subcutaneous twice a day with fingerstick under well control Patient had a frequent admissions with DKA recently in this hospital She has been unable to remain out of the hospital for longer than 2-3 weeks, sometimes the duration is even less than that. Having her return to the hospital so frequently is not a sustainable option, therefore she will be started on total parenteral nutrition at this time, and when she is stabilized and able to care for self at home she will be discharged home, and then she will be referred for referred for outpatient surgical intervention by her PCP (Dr. Leonard Sotomayor) who is also aware of this plan. (2) HTN (hypertension) Status: Chronic Problem Text: Continue home medications (3) CKD (chronic kidney disease) Status: Chronic Problem Text: Stable continue home meds (4) GERD (gastroesophageal reflux disease) Status: Chronic Problem Text: Continue home meds (5) JERAD (obstructive sleep apnea) Status: Chronic Problem Text: Patient was using her on CPAP (6) Gastroparesis due to DM Status: Chronic Problem Text: Continue current medications (7) Hypokalemia Status: Resolved Plan/VTE VTE Prophylaxis Ordered?: Yes Plan Plan for today is to replace her PICC line. Restart TPN. And begin with and discharge planning. Will need to arrange to have TPN in the home. Given that the patient has had issues in the past with noncompliance of therapy, refusal of home health aides, etc, and there is some incongruity regarding how her PICC line was inadvertently removed last night, I will try and touch base with her PCP, and perhaps instead of discharge and trying to schedule her surgery as an outpatient, perhaps we will entertain the idea of attempting to transfer her while inpatient to obtain the requisite surgery. VS, I&O, 24H, Fishbone Vital Signs/I&O Vital Signs Date Time Temp Pulse Resp B/P (MAP) Pulse Ox O2 Delivery O2 Flow Rate FiO2 08/11/19 15:55 96 18 97 Room Air 08/11/19 14:00 99.0 120/66 (84) I&O- Last 24 Hours up to 6 AM 08/11/19 06:00 Intake Total 3705 ml Output Total 2200 ml Balance 1505 ml Laboratory Data 24H LABS Laboratory Tests 2 08/10/19 20:48: Bedside Glucose (Misc Panel) 144H 08/11/19 05:40: Bedside Glucose (Misc Panel) 122H 08/11/19 08:15: Nucleated Red Blood Cells % (auto) 0.0, Anion Gap 7L, Glomerular Filtration Rate > 60.0, Calcium Level 8.3L 08/11/19 11:51: Bedside Glucose (Misc Panel) 234H 08/11/19 16:37: Bedside Glucose (Misc Panel) 132H CBC/BMP Laboratory Tests 08/11/19 08:15 Microbiology Microbiology 08/09/19 Gastrointestinal Tract Panel (PCR) - Final, Complete POLI AGUILAR DO Aug 11, 2019 19:20
[2019-08-11 22:00] VITALS: BP 132/74
[2019-08-12] MEDS: SODIUM CHLORIDE 0.9% INJ 10 ML SYR IV SCH ×2 (05:34→17:33)
[2019-08-12 06:00] VITALS: BP 126/75
[2019-08-12 06:30] LABS: HEMATOCRIT 32.2 % (36.0-47.0); HEMOGLOBIN 10.3 g/dl (12.0-15.5); MEAN CORPUSCULAR HEMOGLOBIN 31.7 pg (27.0-33.0); MEAN CORPUSCULAR VOLUME 99.1 fl (80.0-96.0); PLATELET COUNT, AUTOMATED 242 10^3/uL (150-450); RED BLOOD COUNT 3.25 10^6/uL (4.00-5.40); WHITE BLOOD COUNT 5.3 10^3/uL (4.0-10.0)
[2019-08-12 06:55] LABS: BLOOD UREA NITROGEN 16 MG/DL (7-18); CALCIUM LEVEL 8.4 MG/DL (8.5-10.1); CARBON DIOXIDE LEVEL 32 MEQ/L (21-32); CHLORIDE LEVEL 102 MEQ/L (98-107); CREATININE FOR GFR 0.82 MG/DL (0.55-1.30); GLOMERULAR FILTRATION RATE > 60.0 (>51); GLUCOSE, FASTING 177 MG/DL (70-100); POTASSIUM SERUM 4.1 MEQ/L (3.5-5.1); SODIUM LEVEL 138 MEQ/L (136-145)
[2019-08-12] MEDS: SUCRALFATE SUSP 1GM/10ML UD PO SCH ×4 (07:43→21:13)
[2019-08-12] MEDS: HumaLOG INSULIN (NovoLOG) PER UNIT SC SCH ×4 (07:44→21:13)
[2019-08-12] MEDS: ONDANSETRON 4MG/2ML VIAL IV PRN (09:32)
[2019-08-12 09:40] VITALS: BP 135/76
[2019-08-12] MEDS: clonazePAM 1 MG TAB PO SCH ×2 (09:43→16:00)
[2019-08-12] MEDS: LEVEMIR (INSULIN DETEMIR) 1 UNITS/0.01ML SC SCH ×2 (09:43→21:13)
[2019-08-12] MEDS: ENOXAPARIN 40MG/0.4ML SYRINGE (J1650 PER 10MG) SC SCH (09:43)
[2019-08-12] MEDS: PREGABALIN 75 MG CAP(LYRICA) PO SCH ×2 (09:43→21:13)
[2019-08-12] MEDS: ATORVASTATIN 20 MG TAB PO SCH (09:51)
[2019-08-12] MEDS: FLUoxetine 20 MG CAP PO SCH (09:51)
[2019-08-12] MEDS: MULTIVITAMINS/MINERALS THERAP 1 TAB PO SCH (09:51)
[2019-08-12] MEDS: ASPIRIN 81 MG ENTERIC TAB PO SCH (09:52)
[2019-08-12] MEDS: FOLIC ACID 1 MG TAB PO SCH (09:52)
[2019-08-12] MEDS: VITAMIN D 1,000 INTERNATIONAL UNITS TABLET PO SCH (09:52)
[2019-08-12] MEDS: methocarbamoL 500 MG TAB PO SCH ×2 (09:52→21:15)
[2019-08-12] MEDS: FERROUS SULFATE 325MG TAB PO SCH (09:52)
[2019-08-12] MEDS: PANTOPRAZOLE 40MG TAB (PROTONIX) PO SCH ×2 (09:52→21:13)
[2019-08-12] MEDS: FUROSEMIDE 20 MG TAB PO SCH (09:52)
[2019-08-12 14:00] VITALS: BP 112/63
--- NOTE | 2019-08-12 16:26 | REP ---
PICC line insertion under ultrasound guidance. The procedure was performed by SARAH Cosby, under the direct supervision of Dr. Faith. The risks and benefits of the procedure were explained to the patient and informed consent was obtained both verbally and written. Directly prior to the start of the procedure, a formal timeout was completed in the procedure room. The left basilic vein was localized using ultrasound guidance. The skin was prepped and draped in the sterile fashion. 1 ml 1% lidocaine 10 mg/ml was used as a local anesthetic. Using ultrasound guidance the left basilic vein was cannulated and a 0.018 guidewire was inserted and advanced to the SVC using fluoroscopic guidance. The needle was removed and a 4.5 [place] dilator and peel-away sheath was inserted over the guidewire. A 4.5 [place] single lumen catheter was cut to the length of 35 cm. The dilator was removed and the catheter was inserted over the guide wire with the tip ending in the SVC. The peel-away sheath was removed and the catheter was flushed with heparinized saline as per hospital protocol. The catheter was affixed to the skin and a sterile dressing was applied. The patient tolerated the procedure well and there were no immediate complications. 0.2 minutes of fluoroscopy time was utilized for this procedure. Some fluoroscopic images are performed with last image hold technology. These images require no additional radiation. Reviewed by SARAH Mahajan 08/12/2019 04:12 P Electronically Signed by Noe Faith MD 08/12/2019 04:16 P
--- NOTE | 2019-08-12 17:43 | IPNPDOC ---
Subjective Date Seen The patient was seen on 08/12/19. Subjective Chief Complaint/HPI The patient reports that she is feeling well, or at least back to her baseline. She does have intermittent nausea at times, but since she is getting the TPN and she does not need the, this seems to be a little more manageable. She is hopeful that she might be able to go home in the near future, this is proving to complicated as described below. Constitutional: Denies: Chills, Fever, Night Sweats Pulmonary: Denies: Dyspnea, Cough Cardiovascular: Denies: Chest Pain, Palpitations, Orthopnea, Paroxysmal Noc. Dyspnea, Lt Headedness Gastrointestinal: Reports: Nausea; Denies: Vomiting, Abdominal Pain, Diarrhea, Constipation Psych: Reports: Mood Normal; Denies: Depression, Memory Issues Objective Physical Examination General Exam: Positive: Alert, Cooperative, No Acute Distress Neck Exam: Negative: JVD Chest Exam: Positive: Clear to auscultation, Normal air movement; Negative: Rales, Rhonchi, Wheezing Heart Exam: Positive: Rate Normal, Regular Rhythm, Normal S1, Normal S2; Negative: Gallops Abdomen Exam: Positive: Normal bowel sounds, Soft; Negative: Tenderness Extremity Exam: Positive: Normal pulses; Negative: Clubbing, Cyanosis, Edema Skin Exam: Positive: Nl turgor and temperature Neuro Exam: Positive: Normal Speech Assessment /Plan Problems (1) Diabetic ketoacidosis Status: Resolved Problem Text: Patient's diabetic ketoacidosis has resolved She is on her home insulin dosage equivalent to Levemir 10 units subcutaneous twice a day with fingerstick under well control Patient had a frequent admissions with DKA recently in this hospital She has been unable to remain out of the hospital for longer than 2-3 weeks, s ometimes the duration is even less than that. (2) HTN (hypertension) Status: Chronic Problem Text: Continue home medications (3) CKD (chronic kidney disease) Status: Chronic Problem Text: Stable continue home meds (4) GERD (gastroesophageal reflux disease) Status: Chronic Problem Text: Continue home meds (5) JERAD (obstructive sleep apnea) Status: Chronic Problem Text: Patient was using her own CPAP (6) Gastroparesis due to DM Status: Chronic Problem Text: Continue current medications (7) Hypokalemia Status: Resolved Plan/VTE VTE Prophylaxis Ordered?: Yes Plan I called and spoke with the patient's PCP today. It appears that her surgeon in [place] recently performed an EGD which revealed severe gastritis, and therefore bowel rest will be necessary prior to performing the surgery. Hence the need for TPN, she will likely need to be nothing by mouth and on TPN for at least a month prior to getting the surgery, otherwise it is inadvisable to perform surgery on such an inflamed and irritated stomach. Apparently in the [facility], nursing homes and short-term rehabilitation facilities will not administer TPN, therefore we will continue to work with [facility] in order to secure her appropriate home health care. VS, I&O, 24H, Fishbone Vital Signs/I&O Vital Signs Date Time Temp Pulse Resp B/P (MAP) Pulse Ox O2 Delivery O2 Flow Rate FiO2 08/12/19 14:00 99.7 94 18 112/63 (79) 95 Room Air I&O- Last 24 Hours up to 6 AM 08/12/19 05:59 Intake Total 1920 ml Output Total 3500 ml Balance -1580 ml Laboratory Data 24H LABS Laboratory Tests 2 08/11/19 20:16: Bedside Glucose (Misc Panel) 219H 08/12/19 06:11: Nucleated Red Blood Cells % (auto) 0.0, Anion Gap 4L, Glomerular Filtration Rate > 60.0, Calcium Level 8.4L 08/12/19 11:23: Bedside Glucose (Misc Panel) 341H 08/12/19 16:10: Bedside Glucose (Misc Panel) 153H CBC/BMP Laboratory Tests 08/12/19 06:11 Microbiology Microbiology 08/09/19 Gastrointestinal Tract Panel (PCR) - Final, Complete POLI AGUILAR DO Aug 12, 2019 17:42
[2019-08-12] MEDS ORDERED: FAT EMULSION IV 20% 500 ML IV SCH (18:00)
[2019-08-12] MEDS ORDERED: AMINO AC/ELECTROLYTE/DEX/CALC 2,000 ML IV SCH (18:00)
[2019-08-12] MEDS: ONDANSETRON 4 MG ORAL DISINTEGRATING TAB PO PRN (21:13)
[2019-08-12 22:00] VITALS: BP 133/72
[2019-08-13] MEDS: HumaLOG INSULIN (NovoLOG) PER UNIT SC SCH ×4 (01:42→18:00)
[2019-08-13] MEDS: SODIUM CHLORIDE 0.9% INJ 10 ML SYR IV SCH ×2 (05:40→18:00)
[2019-08-13 06:00] VITALS: BP 122/72
[2019-08-13 06:43] LABS: HEMATOCRIT 29.4 % (36.0-47.0); HEMOGLOBIN 9.6 g/dl (12.0-15.5); MEAN CORPUSCULAR HEMOGLOBIN 32.2 pg (27.0-33.0); MEAN CORPUSCULAR HGB CONC 32.7 g/dl (32.0-36.5); MEAN CORPUSCULAR VOLUME 98.7 fl (80.0-96.0); PLATELET COUNT, AUTOMATED 258 10^3/uL (150-450); RED BLOOD COUNT 2.98 10^6/uL (4.00-5.40); WHITE BLOOD COUNT 5.6 10^3/uL (4.0-10.0)
[2019-08-13 07:07] LABS: BLOOD UREA NITROGEN 29 MG/DL (7-18); CALCIUM LEVEL 8.2 MG/DL (8.5-10.1); CARBON DIOXIDE LEVEL 34 MEQ/L (21-32); CHLORIDE LEVEL 101 MEQ/L (98-107); CREATININE FOR GFR 0.75 MG/DL (0.55-1.30); GLOMERULAR FILTRATION RATE > 60.0 (>51); GLUCOSE, FASTING 83 MG/DL (70-100); SODIUM LEVEL 139 MEQ/L (136-145)
[2019-08-13] MEDS: FLUoxetine 20 MG CAP PO SCH (08:43)
[2019-08-13] MEDS: ATORVASTATIN 20 MG TAB PO SCH (08:43)
[2019-08-13] MEDS: ASPIRIN 81 MG ENTERIC TAB PO SCH (08:43)
[2019-08-13] MEDS: methocarbamoL 500 MG TAB PO SCH ×2 (08:43→21:05)
[2019-08-13] MEDS: VITAMIN D 1,000 INTERNATIONAL UNITS TABLET PO SCH (08:43)
[2019-08-13] MEDS: FERROUS SULFATE 325MG TAB PO SCH (08:43)
[2019-08-13] MEDS: MULTIVITAMINS/MINERALS THERAP 1 TAB PO SCH (08:44)
[2019-08-13] MEDS: tiZANidine 4 MG TAB PO PRN (08:44)
[2019-08-13] MEDS: SUCRALFATE SUSP 1GM/10ML UD PO SCH ×4 (08:44→21:05)
[2019-08-13] MEDS: PANTOPRAZOLE 40MG TAB (PROTONIX) PO SCH ×2 (08:44→21:05)
[2019-08-13] MEDS: FOLIC ACID 1 MG TAB PO SCH (08:44)
[2019-08-13] MEDS: PREGABALIN 75 MG CAP(LYRICA) PO SCH ×2 (08:44→21:05)
[2019-08-13] MEDS: FUROSEMIDE 20 MG TAB PO SCH (08:45)
[2019-08-13] MEDS: ENOXAPARIN 40MG/0.4ML SYRINGE (J1650 PER 10MG) SC SCH (08:46)
[2019-08-13 09:01] LABS: ALT/SGPT 88 U/L (12-78); BILIRUBIN,TOTAL 0.2 MG/DL (0.2-1.0)
[2019-08-13] MEDS: LEVEMIR (INSULIN DETEMIR) 1 UNITS/0.01ML SC SCH ×2 (10:16→21:05)
[2019-08-13 14:00] VITALS: BP 110/58
[2019-08-13] MEDS: clonazePAM 1 MG TAB PO PRN (14:12)
[2019-08-13] MEDS: ACETAMINOPHEN TAB 650MG DOSE (2X325MG) PO PRN (14:13)
--- NOTE | 2019-08-13 17:12 | IPNPDOC ---
Subjective Date Seen The patient was seen on 08/13/19. Subjective Chief Complaint/HPI The patient is sitting upright in bed moaning and in the room. She does not have any specific complaints at this time. We have a long talk about her plan, and the plan is now to keep her nothing by mouth, presumably for at least a month or so until her severe gastritis calms down. During that time her total parenteral nutrition, and this has already been started, I explained to her than trying to arrange to have this at home does require a significant amount of paperwork, and we will be trying to work through this over the next few days. It being a holiday weekend, it is very unlikely that she'll be able to go home until next week. Objective Physical Examination General Exam: Positive: Alert, Cooperative, No Acute Distress Eye Exam: Positive: Conjunctiva & lids normal, EOMI Chest Exam: Positive: Clear to auscultation, Normal air movement; Negative: Rales, Rhonchi, Wheezing Heart Exam: Positive: Rate Normal, Regular Rhythm Abdomen Exam: Positive: Normal bowel sounds, Soft; Negative: Tenderness Extremity Exam: Positive: Normal pulses; Negative: Clubbing, Cyanosis, Edema Skin Exam: Positive: Nl turgor and temperature Neuro Exam: Positive: Normal Speech Psych Exam: Positive: Mental status NL, Mood NL, Oriented x 3 Assessment /Plan Problems (1) Diabetic ketoacidosis Status: Resolved Problem Text: Patient's diabetic ketoacidosis has resolved Patient had a frequent admissions with DKA recently in this hospital She has been unable to remain out of the hospital for longer than 2-3 weeks, sometimes the duration is even less than that. Will titrate her dose of Levemir such that her sugars will be well controlled while on TPN (2) HTN (hypertension) Status: Chronic Problem Text: Continue home medications (3) CKD (chronic kidney disease) Status: Chronic Problem Text: Stable continue home meds (4) GERD (gastroesophageal reflux disease) Status: Chronic Problem Text: Continue home meds (5) JERAD (obstructive sleep apnea) Status: Chronic Problem Text: Patient was using her own CPAP (6) Gastroparesis due to DM Status: Chronic Problem Text: Continue current medications (7) Hypokalemia Status: Resolved Plan/VTE VTE Prophylaxis Ordered?: Yes Plan We will continue her with standard TPN, and over the next few days will titrate her dose of long-acting insulin. Otherwise, discussions are to been initiated with patient and family services to try and arrange for her to have TPN at home. I spoke with the patient's mother last night who is very understanding of the si tuation, and she would be willing to have the patient and her home if it would be beneficial. The patient today states that she would be amenable to this idea. VS, I&O, 24H, Fishbone Vital Signs/I&O Vital Signs Date Time Temp Pulse Resp B/P (MAP) Pulse Ox O2 Delivery O2 Flow Rate FiO2 08/13/19 14:00 97.9 86 17 110/58 (75) 100 Room Air I&O- Last 24 Hours up to 6 AM 08/13/19 06:00 Intake Total 1700 ml Output Total 4600 ml Balance -2900 ml Laboratory Data 24H LABS Laboratory Tests 2 08/12/19 20:14: Bedside Glucose (Misc Panel) 425H 08/13/19 01:11: Bedside Glucose (Misc Panel) 172H 08/13/19 05:44: Bedside Glucose (Misc Panel) 66L 08/13/19 06:27: Nucleated Red Blood Cells % (auto) 0.0, Anion Gap 4L, Glomerular Filtration Rate > 60.0, Calcium Level 8.2L, Total Bilirubin 0.2, Aspartate Amino Transf (AST/SGOT) 70H, Alanine Aminotransferase (ALT/SGPT) 88H, Alkaline Phosphatase 199H, Total Protein 5.0L, Albumin 2.0L, Albumin/Globulin Ratio 0.7L 08/13/19 13:48: Bedside Glucose (Misc Panel) 228H CBC/BMP Laboratory Tests 08/13/19 06:27 Microbiology Microbiology 08/09/19 Gastrointestinal Tract Panel (PCR) - Final, Complete POLI AGUILAR DO Aug 13, 2019 17:12
[2019-08-13] MEDS ORDERED: FAT EMULSION IV 20% 500 ML IV SCH (18:00)
[2019-08-13] MEDS ORDERED: HumaLOG INSULIN (NovoLOG) PER UNIT SC SCH (18:00)
[2019-08-13] MEDS ORDERED: MULTIVITAMIN -ADULT INJECTION 10 ML, CR/CU/SE/MN/ZN INJ 1 ML in AMINO AC/ELECTROLYTE/DE... IV SCH (18:00)
[2019-08-13] MEDS: ONDANSETRON 4 MG ORAL DISINTEGRATING TAB PO PRN (18:11)
[2019-08-13 22:00] VITALS: BP 114/66
[2019-08-14] MEDS: HumaLOG INSULIN (NovoLOG) PER UNIT SC SCH ×5 (00:06→23:57)
[2019-08-14] MEDS: clonazePAM 1 MG TAB PO PRN ×2 (02:49→21:35)
[2019-08-14] MEDS: ACETAMINOPHEN TAB 650MG DOSE (2X325MG) PO PRN (02:49)
[2019-08-14] MEDS: SODIUM CHLORIDE 0.9% INJ 10 ML SYR IV SCH ×2 (05:32→17:37)
[2019-08-14 06:00] VITALS: BP 158/77
[2019-08-14] MEDS: PERCOCET 5MG/325MG TAB PO PRN ×2 (06:03→17:36)
[2019-08-14 06:13] LABS: HEMATOCRIT 32.5 % (36.0-47.0); HEMOGLOBIN 10.5 g/dl (12.0-15.5); MEAN CORPUSCULAR HEMOGLOBIN 31.8 pg (27.0-33.0); MEAN CORPUSCULAR HGB CONC 32.3 g/dl (32.0-36.5); MEAN CORPUSCULAR VOLUME 98.5 fl (80.0-96.0); PLATELET COUNT, AUTOMATED 277 10^3/uL (150-450); WHITE BLOOD COUNT 5.2 10^3/uL (4.0-10.0)
[2019-08-14 06:36] LABS: BLOOD UREA NITROGEN 22 MG/DL (7-18); CALCIUM LEVEL 8.3 MG/DL (8.5-10.1); CARBON DIOXIDE LEVEL 33 MEQ/L (21-32); CHLORIDE LEVEL 101 MEQ/L (98-107); CREATININE FOR GFR 0.72 MG/DL (0.55-1.30); GLOMERULAR FILTRATION RATE > 60.0 (>51); GLUCOSE, FASTING 87 MG/DL (70-100); POTASSIUM SERUM 3.9 MEQ/L (3.5-5.1); SODIUM LEVEL 141 MEQ/L (136-145)
[2019-08-14] MEDS: tiZANidine 4 MG TAB PO PRN (06:38)
[2019-08-14] MEDS: SUCRALFATE SUSP 1GM/10ML UD PO SCH ×4 (08:33→21:34)
[2019-08-14] MEDS: MULTIVITAMINS/MINERALS THERAP 1 TAB PO SCH (08:34)
[2019-08-14] MEDS: ENOXAPARIN 40MG/0.4ML SYRINGE (J1650 PER 10MG) SC SCH (08:34)
[2019-08-14] MEDS: FUROSEMIDE 20 MG TAB PO SCH (08:34)
[2019-08-14] MEDS: ATORVASTATIN 20 MG TAB PO SCH (08:34)
[2019-08-14] MEDS: FERROUS SULFATE 325MG TAB PO SCH (08:34)
[2019-08-14] MEDS: FOLIC ACID 1 MG TAB PO SCH (08:34)
[2019-08-14] MEDS: ASPIRIN 81 MG ENTERIC TAB PO SCH (08:34)
[2019-08-14] MEDS: PANTOPRAZOLE 40MG TAB (PROTONIX) PO SCH ×2 (08:34→21:35)
[2019-08-14] MEDS: VITAMIN D 1,000 INTERNATIONAL UNITS TABLET PO SCH (08:34)
[2019-08-14] MEDS: methocarbamoL 500 MG TAB PO SCH ×2 (08:34→21:35)
[2019-08-14] MEDS: FLUoxetine 20 MG CAP PO SCH (08:35)
[2019-08-14] MEDS: PREGABALIN 75 MG CAP(LYRICA) PO SCH ×2 (08:35→21:35)
[2019-08-14] MEDS: LEVEMIR (INSULIN DETEMIR) 1 UNITS/0.01ML SC SCH ×2 (08:36→21:35)
[2019-08-14] MEDS: ONDANSETRON 4 MG ORAL DISINTEGRATING TAB PO PRN ×2 (12:40→21:45)
[2019-08-14 14:00] VITALS: BP 106/61
[2019-08-14] MEDS ORDERED: AMINO AC/ELECTROLYTE/DEX/CALC 2,000 ML IV SCH (18:00)
[2019-08-14] MEDS ORDERED: FAT EMULSION IV 20% 500 ML IV SCH (18:00)
--- NOTE | 2019-08-14 18:50 | IPNPDOC ---
Subjective Date Seen The patient was seen on 08/14/19. Subjective Chief Complaint/HPI The patient reports that she had a severe headache/migraine last night. I suspect that this may be related to/exacerbated by reduction in her Klonopin dose. She is feeling better today. Otherwise, she is wondering if she may shower. As stated that she may do so in between when they're switching out her TPN bags, nursing has been instructed to make sure that her PICC line is appropriately covered. Otherwise, the remainder of her review of systems is negative. Objective Physical Examination General Exam: Positive: Alert, No Acute Distress Chest Exam: Positive: Clear to auscultation Heart Exam: Positive: Rate Normal, Regular Rhythm, Normal S1, Normal S2; Negative: Murmurs, Rubs Abdomen Exam: Positive: Normal bowel sounds, Soft; Negative: Tenderness Extremity Exam: Positive: Normal pulses; Negative: Clubbing, Cyanosis, Edema Skin Exam: Positive: Nl turgor and temperature Neuro Exam: Positive: Normal Speech Psych Exam: Positive: Mental status NL, Mood NL, Oriented x 3 Assessment /Plan Problems (1) Diabetic ketoacidosis Status: Resolved Problem Text: Patient's diabetic ketoacidosis has resolved Patient had a frequent admissions with DKA recently in this hospital She has been unable to remain out of the hospital for longer than 2-3 weeks, sometimes the duration is even less than that. Will titrate her dose of Levemir such that her sugars will be well controlled while on TPN (2) HTN (hypertension) Status: Chronic Problem Text: Continue home medications (3) CKD (chronic kidney disease) Status: Chronic Problem Text: Stable continue home meds (4) GERD (gastroesophageal reflux disease) Status: Chronic Problem Text: Continue home meds (5) JERAD (obstructive sleep apnea) Status: Chronic Problem Text: Patient was using her own CPAP (6) Gastroparesis due to DM Status: Chronic Problem Text: Continue current medications (7) Hypokalemia Status: Resolved Plan/VTE VTE Prophylaxis Ordered?: Yes Plan The patient continues to have swings in her glucose, I have adjusted her the sliding scale on her insulin, no changes in her long-acting at this time. Continue with TPN, and discharge planning. Since it is a August weekend, I expect the discharge planning will not be completed until next week. VS, I&O, 24H, Fishbone Vital Signs/I&O Vital Signs Date Time Temp Pulse Resp B/P (MAP) Pulse Ox O2 Delivery O2 Flow Rate FiO2 08/14/19 17:36 98.3 78 18 106/61 95 Room Air I&O- Last 24 Hours up to 6 AM 08/14/19 06:00 Intake Total 1680 ml Output Total 2900 ml Balance -1220 ml Laboratory Data 24H LABS Laboratory Tests 2 08/13/19 21:02: Bedside Glucose (Misc Panel) 175H 08/13/19 23:50: Bedside Glucose (Misc Panel) 204H 08/14/19 05:56: Bedside Glucose (Misc Panel) 81 08/14/19 06:00: Nucleated Red Blood Cells % (auto) 0.0, Anion Gap 7L, Glomerular Filtration Rate > 60.0, Calcium Level 8.3L 08/14/19 11:58: Bedside Glucose (Misc Panel) 207H 08/14/19 17:54: Bedside Glucose (Misc Panel) 66L CBC/BMP Laboratory Tests 08/14/19 06:00 Microbiology Microbiology 08/09/19 Gastrointestinal Tract Panel (PCR) - Final, Complete POLI AGUILAR DO Aug 14, 2019 18:50
[2019-08-14] MEDS: RAMELTEON 8 MG TAB (ROZEREM) PO PRN (21:35)
[2019-08-14 22:00] VITALS: BP 104/59
[2019-08-15] MEDS: SODIUM CHLORIDE 0.9% INJ 10 ML SYR IV SCH ×2 (05:33→17:39)
[2019-08-15] MEDS: HumaLOG INSULIN (NovoLOG) PER UNIT SC SCH ×3 (05:58→17:54)
[2019-08-15 06:00] VITALS: BP 119/63
[2019-08-15 06:33] LABS: HEMATOCRIT 32.3 % (36.0-47.0); HEMOGLOBIN 10.3 g/dl (12.0-15.5); MEAN CORPUSCULAR HEMOGLOBIN 31.3 pg (27.0-33.0); MEAN CORPUSCULAR HGB CONC 31.9 g/dl (32.0-36.5); MEAN CORPUSCULAR VOLUME 98.2 fl (80.0-96.0); PLATELET COUNT, AUTOMATED 270 10^3/uL (150-450); RED BLOOD COUNT 3.29 10^6/uL (4.00-5.40); WHITE BLOOD COUNT 4.7 10^3/uL (4.0-10.0)
[2019-08-15 06:53] LABS: BLOOD UREA NITROGEN 23 MG/DL (7-18); CALCIUM LEVEL 8.4 MG/DL (8.5-10.1); CARBON DIOXIDE LEVEL 31 MEQ/L (21-32); CHLORIDE LEVEL 101 MEQ/L (98-107); CREATININE FOR GFR 0.81 MG/DL (0.55-1.30); GLOMERULAR FILTRATION RATE > 60.0 (>51); GLUCOSE, FASTING 128 MG/DL (70-100); POTASSIUM SERUM 4.1 MEQ/L (3.5-5.1); SODIUM LEVEL 138 MEQ/L (136-145)
[2019-08-15] MEDS: SUCRALFATE SUSP 1GM/10ML UD PO SCH ×4 (08:51→21:28)
[2019-08-15] MEDS: PREGABALIN 75 MG CAP(LYRICA) PO SCH ×2 (08:52→21:27)
[2019-08-15] MEDS: FERROUS SULFATE 325MG TAB PO SCH (08:52)
[2019-08-15] MEDS: ENOXAPARIN 40MG/0.4ML SYRINGE (J1650 PER 10MG) SC SCH (08:52)
[2019-08-15] MEDS: MULTIVITAMINS/MINERALS THERAP 1 TAB PO SCH (08:52)
[2019-08-15] MEDS: LEVEMIR (INSULIN DETEMIR) 1 UNITS/0.01ML SC SCH ×2 (08:52→21:29)
[2019-08-15] MEDS: VITAMIN D 1,000 INTERNATIONAL UNITS TABLET PO SCH (08:52)
[2019-08-15] MEDS: methocarbamoL 500 MG TAB PO SCH ×2 (08:53→21:27)
[2019-08-15] MEDS: ATORVASTATIN 20 MG TAB PO SCH (08:53)
[2019-08-15] MEDS: ASPIRIN 81 MG ENTERIC TAB PO SCH (08:53)
[2019-08-15] MEDS: FLUoxetine 20 MG CAP PO SCH (08:53)
[2019-08-15] MEDS: FOLIC ACID 1 MG TAB PO SCH (08:53)
[2019-08-15] MEDS: PANTOPRAZOLE 40MG TAB (PROTONIX) PO SCH ×2 (08:53→21:27)
[2019-08-15] MEDS: FUROSEMIDE 20 MG TAB PO SCH (08:53)
[2019-08-15 14:00] VITALS: BP 100/68
--- NOTE | 2019-08-15 16:37 | IPNPDOC ---
Subjective Date Seen The patient was seen on 08/15/19. Subjective Chief Complaint/HPI She reports that she is feeling "okay". She apparently had a difficult time sleeping last night once again, predominantly due to headache. She reports that her headaches are better at this time. Otherwise, the remainder of her review systems is negative. Objective Physical Examination General Exam: Positive: Alert, Cooperative, No Acute Distress Chest Exam: Positive: Clear to auscultation; Negative: Rales, Rhonchi Heart Exam: Positive: Rate Normal, Regular Rhythm; Negative: Murmurs, Rubs Abdomen Exam: Positive: BS Hypoactive, Soft; Negative: Tenderness Extremity Exam: Positive: Normal pulses; Negative: Clubbing, Cyanosis, Edema Skin Exam: Positive: Nl turgor and temperature Neuro Exam: Positive: Normal Speech Psych Exam: Positive: Mental status NL, Mood NL, Oriented x 3 Assessment /Plan Problems (1) Diabetic ketoacidosis Status: Resolved Problem Text: Patient's diabetic ketoacidosis has resolved Patient had a frequent admissions with DKA recently in this hospital She has been unable to remain out of the hospital for longer than 2-3 weeks, sometimes the duration is even less than that. Will titrate her dose of Levemir such that her sugars will be well controlled while on TPN (2) HTN (hypertension) Status: Chronic Problem Text: Continue home medications (3) CKD (chronic kidney disease) Status: Chronic Problem Text: Stable continue home meds (4) GERD (gastroesophageal reflux disease) Status: Chronic Problem Text: Continue home meds (5) JERAD (obstructive sleep apnea) Status: Chronic Problem Text: Patient was using her own CPAP (6) Gastroparesis due to DM Status: Chronic Problem Text: Continue current medications (7) Hypokalemia Status: Resolved Plan/VTE VTE Prophylaxis Ordered?: Yes Plan I have increased her dose of Levemir to 14 units twice a day based on yesterday's administration of short acting. She seems to be weaning off of the Klonopin fairly well, I suspect that her headaches may be related to this. She is currently on a very low dose of Prozac, I will increase her to 40 mg daily to help her with acute bereavement on top of chronic depression. She seems to believe that her situation will be better if she isn't discharged to her mother's home, rather than to her own. I agree with this plan. We will resume speaking with the discharge planning team tomorrow (Friday) regarding her TPN and how to make sure that she can get that in the home. Currently she is no t safe for discharge at this time because this has not been arranged yet. VS, I&O, 24H, Fishbone Vital Signs/I&O Vital Signs Date Time Temp Pulse Resp B/P (MAP) Pulse Ox O2 Delivery O2 Flow Rate FiO2 08/15/19 14:00 99.1 70 18 100/68 (79) 93 Room Air I&O- Last 24 Hours up to 6 AM 08/15/19 06:00 Intake Total 1730 ml Output Total 900 ml Balance 830 ml Laboratory Data 24H LABS Laboratory Tests 2 08/14/19 17:54: Bedside Glucose (Misc Panel) 66L 08/14/19 20:50: Bedside Glucose (Misc Panel) 225H 08/14/19 23:50: Bedside Glucose (Misc Panel) 375H 08/15/19 05:41: Bedside Glucose (Misc Panel) 126H 08/15/19 06:17: Nucleated Red Blood Cells % (auto) 0.0, Anion Gap 6L, Glomerular Filtration Rate > 60.0, Calcium Level 8.4L 08/15/19 11:35: Bedside Glucose (Misc Panel) 154H CBC/BMP Laboratory Tests 08/15/19 06:17 Microbiology Microbiology 08/09/19 Gastrointestinal Tract Panel (PCR) - Final, Complete POLI AGUILAR DO Aug 15, 2019 16:37
[2019-08-15] MEDS: ACETAMINOPHEN TAB 650MG DOSE (2X325MG) PO PRN (17:40)
[2019-08-15] MEDS ORDERED: AMINO AC/ELECTROLYTE/DEX/CALC 2,000 ML IV SCH (18:00)
[2019-08-15] MEDS ORDERED: FAT EMULSION IV 20% 500 ML IV SCH (18:00)
[2019-08-15] MEDS: RAMELTEON 8 MG TAB (ROZEREM) PO PRN (21:27)
[2019-08-15 22:00] VITALS: BP 102/57
[2019-08-16] MEDS: HumaLOG INSULIN (NovoLOG) PER UNIT SC SCH ×4 (00:20→18:00)
[2019-08-16 06:00] VITALS: BP 116/70
[2019-08-16] MEDS: SODIUM CHLORIDE 0.9% INJ 10 ML SYR IV SCH ×2 (06:00→18:08)
[2019-08-16 06:34] LABS: HEMATOCRIT 34.7 % (36.0-47.0); MEAN CORPUSCULAR HEMOGLOBIN 31.3 pg (27.0-33.0); MEAN CORPUSCULAR HGB CONC 31.7 g/dl (32.0-36.5); MEAN CORPUSCULAR VOLUME 98.6 fl (80.0-96.0); PLATELET COUNT, AUTOMATED 309 10^3/uL (150-450); RED BLOOD COUNT 3.52 10^6/uL (4.00-5.40); WHITE BLOOD COUNT 4.7 10^3/uL (4.0-10.0)
[2019-08-16 06:59] LABS: ALBUMIN 2.3 GM/DL (3.2-5.2); ALT/SGPT 52 U/L (12-78); BILIRUBIN,TOTAL 0.2 MG/DL (0.2-1.0); BLOOD UREA NITROGEN 23 MG/DL (7-18); CALCIUM LEVEL 8.7 MG/DL (8.5-10.1); CARBON DIOXIDE LEVEL 31 MEQ/L (21-32); CHLORIDE LEVEL 101 MEQ/L (98-107); CREATININE FOR GFR 0.81 MG/DL (0.55-1.30); GLOMERULAR FILTRATION RATE > 60.0 (>51); GLUCOSE, FASTING 118 MG/DL (70-100); SODIUM LEVEL 140 MEQ/L (136-145); TOTAL PROTEIN 5.8 GM/DL (6.4-8.2)
[2019-08-16] MEDS: VITAMIN D 1,000 INTERNATIONAL UNITS TABLET PO SCH (08:10)
[2019-08-16] MEDS: PREGABALIN 75 MG CAP(LYRICA) PO SCH ×2 (08:10→21:15)
[2019-08-16] MEDS: FLUoxetine 20 MG CAP PO SCH (08:10)
[2019-08-16] MEDS: FERROUS SULFATE 325MG TAB PO SCH (08:10)
[2019-08-16] MEDS: ASPIRIN 81 MG ENTERIC TAB PO SCH (08:10)
[2019-08-16] MEDS: MULTIVITAMINS/MINERALS THERAP 1 TAB PO SCH (08:10)
[2019-08-16] MEDS: SUCRALFATE SUSP 1GM/10ML UD PO SCH ×4 (08:10→21:15)
[2019-08-16] MEDS: PANTOPRAZOLE 40MG TAB (PROTONIX) PO SCH ×2 (08:11→21:15)
[2019-08-16] MEDS: methocarbamoL 500 MG TAB PO SCH ×2 (08:11→21:15)
[2019-08-16] MEDS: ENOXAPARIN 40MG/0.4ML SYRINGE (J1650 PER 10MG) SC SCH (08:11)
[2019-08-16] MEDS: FUROSEMIDE 20 MG TAB PO SCH (08:11)
[2019-08-16] MEDS: FOLIC ACID 1 MG TAB PO SCH (08:11)
[2019-08-16] MEDS: ATORVASTATIN 20 MG TAB PO SCH (08:11)
[2019-08-16] MEDS: LEVEMIR (INSULIN DETEMIR) 1 UNITS/0.01ML SC SCH ×2 (08:12→21:16)
[2019-08-16] MEDS: EXCEDRIN MIGRAINE TABLET PO PRN (11:43)
[2019-08-16 14:00] VITALS: BP 110/71
--- NOTE | 2019-08-16 14:52 | IPNPDOC ---
Subjective Date Seen The patient was seen on 08/16/19. Subjective Chief Complaint/HPI She was again is complaining of headache today, but otherwise is in fairly good spirits. She knows and understands the plan, and is patiently waiting until we have all arrangements made for TPN at home. She plans on staying with her mother when she cut his home. Otherwise, the remainder of her review of systems is negative. Objective Physical Examination General Exam: Positive: Alert, Cooperative Chest Exam: Positive: Clear to auscultation, Normal air movement; Negative: Rales, Rhonchi Heart Exam: Positive: Rate Normal, Regular Rhythm; Negative: Murmurs, Rubs Abdomen Exam: Positive: BS Hypoactive, Soft; Negative: Tenderness Extremity Exam: Positive: Normal pulses; Negative: Clubbing, Cyanosis, Edema Skin Exam: Positive: Nl turgor and temperature Assessment /Plan Problems (1) Diabetic ketoacidosis Status: Resolved Problem Text: Patient's diabetic ketoacidosis has resolved Patient had a frequent admissions with DKA recently in this hospital She has been unable to remain out of the hospital for longer than 2-3 weeks, sometimes the duration is even less than that. Will titrate her dose of Levemir such that her sugars will be well controlled while on TPN (2) HTN (hypertension) Status: Chronic Problem Text: Continue home medications (3) CKD (chronic kidney disease) Status: Chronic Problem Text: Stable continue home meds (4) GERD (gastroesophageal reflux disease) Status: Chronic Problem Text: Continue home meds (5) JERAD (obstructive sleep apnea) Status: Chronic Problem Text: Patient was using her own CPAP (6) Gastroparesis due to DM Status: Chronic Problem Text: Continue current medications (7) Hypokalemia Status: Resolved Plan/VTE VTE Prophylaxis Ordered?: Yes Plan TPN has not yet been arranged for her at home. Therefore, she is not safe for discharge at this time. She needs TPN at home because she needs to remain nothing by mouth for one entire month prior to going down to [place] for gastric surgery. If she is discharged without TPN, she will likely be back in the hospital in DKA once again in a short amount of time as evidenced by her 5 hospitalizations in the past 8 weeks or so, all of which were for DKA. Upon discharge she must follow up closely with her PCP Dr. Leonard Sotomayor, who is well aware of her situation. He will coordinate follow-up in [place]. The patient has been weaned off of clonazepam, this will be discontinued entirely today. She has not had any narcotics for 2 days, this also will be dis continued. Excedrin Migraine ordered for headaches. Small adjustments are being made to her long acting insulin, but her sugars are much more stable now. She is ready for d/c when TPN is available. VS, I&O, 24H, Fishbone Vital Signs/I&O Vital Signs Date Time Temp Pulse Resp B/P (MAP) Pulse Ox O2 Delivery O2 Flow Rate FiO2 08/16/19 06:00 97.4 68 16 116/70 (85) 97 Room Air I&O- Last 24 Hours up to 6 AM 08/16/19 06:00 Intake Total 1850 ml Output Total 1800 ml Balance 50 ml Laboratory Data 24H LABS Laboratory Tests 2 08/15/19 17:40: Bedside Glucose (Misc Panel) 112H 08/15/19 20:30: Bedside Glucose (Misc Panel) 99 08/16/19 00:13: Bedside Glucose (Misc Panel) 278H 08/16/19 06:12: Nucleated Red Blood Cells % (auto) 0.0, Anion Gap 8, Glomerular Filtration Rate > 60.0, Calcium Level 8.7, Total Bilirubin 0.2, Aspartate Amino Transf (AST/SGOT) 43H, Alanine Aminotransferase (ALT/SGPT) 52, Alkaline Phosphatase 179H, Total Protein 5.8L, Albumin 2.3L, Albumin/Globulin Ratio 0.7L 08/16/19 06:17: Bedside Glucose (Misc Panel) 122H 08/16/19 11:43: Bedside Glucose (Misc Panel) 121H CBC/BMP Laboratory Tests 08/16/19 06:12 Microbiology Microbiology 08/09/19 Gastrointestinal Tract Panel (PCR) - Final, Complete POLI AGUILAR DO Aug 16, 2019 14:52
[2019-08-16] MEDS ORDERED: FAT EMULSION IV 20% 500 ML IV SCH (18:00)
[2019-08-16] MEDS ORDERED: MULTIVITAMIN -ADULT INJECTION 10 ML, CR/CU/SE/MN/ZN INJ 1 ML in AMINO AC/ELECTROLYTE/DE... IV SCH (18:00)
[2019-08-16] MEDS: ONDANSETRON 4 MG ORAL DISINTEGRATING TAB PO PRN (19:45)
[2019-08-16] MEDS: RAMELTEON 8 MG TAB (ROZEREM) PO PRN (21:15)
[2019-08-16 22:00] VITALS: BP 105/67
[2019-08-17] MEDS: HumaLOG INSULIN (NovoLOG) PER UNIT SC SCH ×4 (00:19→17:06)
[2019-08-17 06:00] VITALS: BP 103/65
[2019-08-17] MEDS: SODIUM CHLORIDE 0.9% INJ 10 ML SYR IV SCH ×2 (06:00→18:10)
[2019-08-17] MEDS: DEXTROSE 50% 50 ML SYRINGE IV PRN (06:09)
[2019-08-17 06:22] LABS: HEMATOCRIT 33.4 % (36.0-47.0); HEMOGLOBIN 10.9 g/dl (12.0-15.5); MEAN CORPUSCULAR HEMOGLOBIN 31.8 pg (27.0-33.0); MEAN CORPUSCULAR HGB CONC 32.6 g/dl (32.0-36.5); MEAN CORPUSCULAR VOLUME 97.4 fl (80.0-96.0); PLATELET COUNT, AUTOMATED 301 10^3/uL (150-450); RED BLOOD COUNT 3.43 10^6/uL (4.00-5.40)
[2019-08-17 06:52] LABS: ALBUMIN 2.3 GM/DL (3.2-5.2); ALT/SGPT 43 U/L (12-78); BILIRUBIN,TOTAL 0.1 MG/DL (0.2-1.0); BLOOD UREA NITROGEN 22 MG/DL (7-18); CALCIUM LEVEL 8.4 MG/DL (8.5-10.1); CARBON DIOXIDE LEVEL 30 MEQ/L (21-32); CHLORIDE LEVEL 104 MEQ/L (98-107); GLOMERULAR FILTRATION RATE > 60.0 (>51); GLUCOSE, FASTING 62 MG/DL (70-100); PHOSPHORUS LEVEL 5.9 MG/DL (2.5-4.9); POTASSIUM SERUM 3.9 MEQ/L (3.5-5.1); SODIUM LEVEL 142 MEQ/L (136-145); TOTAL PROTEIN 5.6 GM/DL (6.4-8.2); TRIGLYCERIDES LEVEL 172 MG/DL (<150)
[2019-08-17] MEDS: FERROUS SULFATE 325MG TAB PO SCH (08:03)
[2019-08-17] MEDS: FOLIC ACID 1 MG TAB PO SCH (08:03)
[2019-08-17] MEDS: VITAMIN D 1,000 INTERNATIONAL UNITS TABLET PO SCH (08:03)
[2019-08-17] MEDS: SUCRALFATE SUSP 1GM/10ML UD PO SCH ×4 (08:03→21:31)
[2019-08-17] MEDS: FLUoxetine 20 MG CAP PO SCH (08:04)
[2019-08-17] MEDS: ONDANSETRON 4 MG ORAL DISINTEGRATING TAB PO PRN (08:04)
[2019-08-17] MEDS: FUROSEMIDE 20 MG TAB PO SCH (08:04)
[2019-08-17] MEDS: methocarbamoL 500 MG TAB PO SCH ×2 (08:04→21:31)
[2019-08-17] MEDS: PANTOPRAZOLE 40MG TAB (PROTONIX) PO SCH ×2 (08:04→21:31)
[2019-08-17] MEDS: MULTIVITAMINS/MINERALS THERAP 1 TAB PO SCH (08:04)
[2019-08-17] MEDS: ATORVASTATIN 20 MG TAB PO SCH (08:04)
[2019-08-17] MEDS: PREGABALIN 75 MG CAP(LYRICA) PO SCH ×2 (08:04→21:31)
[2019-08-17] MEDS: ASPIRIN 81 MG ENTERIC TAB PO SCH (08:04)
[2019-08-17] MEDS: ENOXAPARIN 40MG/0.4ML SYRINGE (J1650 PER 10MG) SC SCH (08:05)
[2019-08-17] MEDS: LEVEMIR (INSULIN DETEMIR) 1 UNITS/0.01ML SC SCH ×2 (08:05→21:00)
[2019-08-17] MEDS: EXCEDRIN MIGRAINE TABLET PO PRN (10:52)
[2019-08-17] MEDS: DOCUSATE SODIUM 100 MG CAP PO PRN (12:28)
[2019-08-17 14:00] VITALS: BP 109/65
[2019-08-17] MEDS: clonazePAM 1 MG TAB PO SCH ×2 (14:22→21:31)
--- NOTE | 2019-08-17 17:59 | IPNPDOC ---
Text Note Date of Service The patient was seen on 08/17/19. NOTE Subjective: -Feels anxious. Upset. Asking why her chronic longstanding scheduled klonopin was stopped. Objective General: Alert, Cooperative Chest: Clear to auscultation, Normal air movement, no crackles, wheezing of rhonchi Heart:RRR, no mrg Abdomen: soft, NTND Extremity: Normal pulses, no Edema Skin Exam: Nl turgor and temperature Plan: DKA: Resolved DM: -insulin levemir and Q6H SSI, hypoglycemia protocol, FSBG AC/HS HTN -Continue home medications CKD -Stable continue home meds GERD -Continue home meds -Was started on TPN for home discharge. Will need to speak with dietary about the optimal composition and lab interval JERAD -Patient was using her own CPAP Gastroparesis due to DM -Continue current medications DVT ppx: lovenox VS,Fishbone, I+O VS, Fishbone, I+O Laboratory Tests 08/17/19 06:03 08/17/19 06:04 Vital Signs Date Time Temp Pulse Resp B/P (MAP) Pulse Ox O2 Delivery O2 Flow Rate FiO2 08/17/19 14:00 100.0 71 18 109/65 (80) 97 Room Air I&O- Last 24 Hours up to 6 AM 08/17/19 06:00 Intake Total 50 ml Output Total 1400 ml Balance -1350 ml CHRIS HOLBROOK MD Aug 17, 2019 17:59
[2019-08-17] MEDS ORDERED: FAT EMULSION IV 20% 500 ML IV SCH (18:00)
[2019-08-17] MEDS ORDERED: AMINO AC/ELECTROLYTE/DEX/CALC 2,000 ML IV SCH (18:00)
[2019-08-17] MEDS ORDERED: HumaLOG INSULIN (NovoLOG) PER UNIT SC SCH (18:00)
[2019-08-17] MEDS ORDERED: LEVEMIR (INSULIN DETEMIR) 1 UNITS/0.01ML SC ONE (21:15)
[2019-08-17] MEDS: RAMELTEON 8 MG TAB (ROZEREM) PO PRN (21:31)
[2019-08-17 22:00] VITALS: BP 107/65
[2019-08-18] MEDS: HumaLOG INSULIN (NovoLOG) PER UNIT SC SCH ×4 (00:05→18:00)
[2019-08-18] MEDS: SODIUM CHLORIDE 0.9% INJ 10 ML SYR IV SCH ×2 (05:42→17:21)
[2019-08-18 06:00] VITALS: BP 104/65
[2019-08-18 06:50] LABS: HEMATOCRIT 33.5 % (36.0-47.0); HEMOGLOBIN 10.8 g/dl (12.0-15.5); MEAN CORPUSCULAR HEMOGLOBIN 31.9 pg (27.0-33.0); MEAN CORPUSCULAR HGB CONC 32.2 g/dl (32.0-36.5); MEAN CORPUSCULAR VOLUME 98.8 fl (80.0-96.0); PLATELET COUNT, AUTOMATED 294 10^3/uL (150-450); RED BLOOD COUNT 3.39 10^6/uL (4.00-5.40); WHITE BLOOD COUNT 4.5 10^3/uL (4.0-10.0)
[2019-08-18 07:21] LABS: BLOOD UREA NITROGEN 21 MG/DL (7-18); CALCIUM LEVEL 8.3 MG/DL (8.5-10.1); CARBON DIOXIDE LEVEL 31 MEQ/L (21-32); CHLORIDE LEVEL 105 MEQ/L (98-107); CREATININE FOR GFR 0.91 MG/DL (0.55-1.30); GLOMERULAR FILTRATION RATE > 60.0 (>51); GLUCOSE, FASTING 104 MG/DL (70-100); POTASSIUM SERUM 3.9 MEQ/L (3.5-5.1); SODIUM LEVEL 139 MEQ/L (136-145)
[2019-08-18] MEDS: ATORVASTATIN 20 MG TAB PO SCH (08:52)
[2019-08-18] MEDS: FLUoxetine 20 MG CAP PO SCH (08:52)
[2019-08-18] MEDS: FUROSEMIDE 20 MG TAB PO SCH (08:52)
[2019-08-18] MEDS: SUCRALFATE SUSP 1GM/10ML UD PO SCH ×4 (08:52→20:39)
[2019-08-18] MEDS: VITAMIN D 1,000 INTERNATIONAL UNITS TABLET PO SCH (08:52)
[2019-08-18] MEDS: methocarbamoL 500 MG TAB PO SCH ×2 (08:52→20:40)
[2019-08-18] MEDS: FERROUS SULFATE 325MG TAB PO SCH (08:52)
[2019-08-18] MEDS: MULTIVITAMINS/MINERALS THERAP 1 TAB PO SCH (08:52)
[2019-08-18] MEDS: ENOXAPARIN 40MG/0.4ML SYRINGE (J1650 PER 10MG) SC SCH (08:53)
[2019-08-18] MEDS: FOLIC ACID 1 MG TAB PO SCH (08:53)
[2019-08-18] MEDS: PANTOPRAZOLE 40MG TAB (PROTONIX) PO SCH ×2 (08:53→20:40)
[2019-08-18] MEDS: ASPIRIN 81 MG ENTERIC TAB PO SCH (08:53)
[2019-08-18] MEDS: clonazePAM 1 MG TAB PO SCH (08:53)
[2019-08-18] MEDS: PREGABALIN 75 MG CAP(LYRICA) PO SCH ×2 (08:53→20:40)
[2019-08-18] MEDS: LEVEMIR (INSULIN DETEMIR) 1 UNITS/0.01ML SC SCH (08:54)
[2019-08-18] MEDS: DOCUSATE SODIUM 100 MG CAP PO PRN (09:03)
[2019-08-18 14:00] VITALS: BP 98/59
[2019-08-18] MEDS ORDERED: clonazePAM 1 MG TAB PO PRN (14:00)
--- NOTE | 2019-08-18 14:02 | IPNPDOC ---
Text Note Date of Service The patient was seen on 08/18/19. NOTE Subjective: -Feels well this morning. No complaints Objective General: Alert, Cooperative Chest: Clear to auscultation, Normal air movement, no crackles, wheezing of rhonchi Heart:RRR, no mrg Abdomen: soft, NTND Extremity: Normal pulses, no Edema Skin Exam: Nl turgor and temperature Labs: WBC 4.5, Hgb hgb 10.8 Plan: DKA: Resolved DM: -insulin levemir adjusted to 15units QAM and 5units QPM and Q6H SSI, hypoglycemia protocol, FSBG AC/HS HTN -Continue home medications CKD -Stable continue home meds GERD -Continue home meds -Was started on TPN for home discharge. JERAD -Patient was using her own CPAP Gastroparesis due to DM -Continue current medications DVT ppx: lovenox Dispo: home tomorrow with TPN. VS,Fishbone, I+O VS, Fishbone, I+O Laboratory Tests 08/18/19 06:37 Vital Signs Date Time Temp Pulse Resp B/P (MAP) Pulse Ox O2 Delivery O2 Flow Rate FiO2 08/18/19 06:00 98.1 68 17 104/65 (78) 96 Room Air I&O- Last 24 Hours up to 6 AM 08/18/19 06:00 Intake Total 1860 ml Output Total 2550 ml Balance -690 ml CHRIS HOLBROOK MD Aug 18, 2019 14:02
[2019-08-18 17:00] VITALS: BP 100/59
[2019-08-18] MEDS ORDERED: FAT EMULSION IV 20% 500 ML IV SCH (18:00)
[2019-08-18] MEDS ORDERED: MULTIVITAMIN -ADULT INJECTION 10 ML, CR/CU/SE/MN/ZN INJ 1 ML in AMINO AC/ELECTROLYTE/DE... IV SCH (18:00)
[2019-08-18] MEDS: RAMELTEON 8 MG TAB (ROZEREM) PO PRN (20:42)
[2019-08-18] MEDS ORDERED: LEVEMIR (INSULIN DETEMIR) 1 UNITS/0.01ML SC SCH (21:00)
[2019-08-18 22:00] VITALS: BP 100/61
[2019-08-19] MEDS: HumaLOG INSULIN (NovoLOG) PER UNIT SC SCH ×3 (00:04→12:28)
[2019-08-19] MEDS: SODIUM CHLORIDE 0.9% INJ 10 ML SYR IV SCH (05:10)
[2019-08-19 06:00] VITALS: BP 102/62
[2019-08-19 06:37] LABS: HEMOGLOBIN 10.8 g/dl (12.0-15.5); MEAN CORPUSCULAR HGB CONC 31.8 g/dl (32.0-36.5); MEAN CORPUSCULAR VOLUME 97.7 fl (80.0-96.0); PLATELET COUNT, AUTOMATED 292 10^3/uL (150-450); RED BLOOD COUNT 3.48 10^6/uL (4.00-5.40); WHITE BLOOD COUNT 4.5 10^3/uL (4.0-10.0)
[2019-08-19 06:53] LABS: BLOOD UREA NITROGEN 22 MG/DL (7-18); CALCIUM LEVEL 8.7 MG/DL (8.5-10.1); CARBON DIOXIDE LEVEL 26 MEQ/L (21-32); CHLORIDE LEVEL 103 MEQ/L (98-107); CREATININE FOR GFR 1.01 MG/DL (0.55-1.30); GLOMERULAR FILTRATION RATE > 60.0 (>51); GLUCOSE, FASTING 376 MG/DL (70-100); PHOSPHORUS LEVEL 4.9 MG/DL (2.5-4.9); POTASSIUM SERUM 4.1 MEQ/L (3.5-5.1); SODIUM LEVEL 138 MEQ/L (136-145)
[2019-08-19] MEDS ORDERED: TRES1INJ2 SC (07:18)
[2019-08-19] MEDS ORDERED: LEVEMIR (INSULIN DETEMIR) 1 UNITS/0.01ML SC SCH ×2 (09:00)
[2019-08-19] MEDS: ASPIRIN 81 MG ENTERIC TAB PO SCH (09:43)
[2019-08-19] MEDS: PANTOPRAZOLE 40MG TAB (PROTONIX) PO SCH (09:43)
[2019-08-19] MEDS: ATORVASTATIN 20 MG TAB PO SCH (09:43)
[2019-08-19] MEDS: FUROSEMIDE 20 MG TAB PO SCH (09:43)
[2019-08-19] MEDS: FERROUS SULFATE 325MG TAB PO SCH (09:43)
[2019-08-19] MEDS: PREGABALIN 75 MG CAP(LYRICA) PO SCH (09:43)
[2019-08-19] MEDS: FLUoxetine 20 MG CAP PO SCH (09:44)
[2019-08-19] MEDS: methocarbamoL 500 MG TAB PO SCH (09:44)
[2019-08-19] MEDS: FOLIC ACID 1 MG TAB PO SCH (09:44)
[2019-08-19] MEDS: MULTIVITAMINS/MINERALS THERAP 1 TAB PO SCH (09:44)
[2019-08-19] MEDS: ENOXAPARIN 40MG/0.4ML SYRINGE (J1650 PER 10MG) SC SCH (09:44)
[2019-08-19] MEDS: VITAMIN D 1,000 INTERNATIONAL UNITS TABLET PO SCH (09:44)
[2019-08-19] MEDS: SUCRALFATE SUSP 1GM/10ML UD PO SCH ×2 (09:49→11:39)
[2019-08-19] MEDS ORDERED: FLUO20CA22 PO (11:26)
[2019-08-19] MEDS ORDERED: FERR1TAB8 PO (11:26)
[2019-08-19] MEDS ORDERED: FIAS100I2 SC (11:26)
[2019-08-19] MEDS ORDERED: TIZA4TAB4 PO (11:26)
[2019-08-19] MEDS ORDERED: CLON1TAB8 PO (11:26)
[2019-08-19] MEDS ORDERED: ATOR40TA75 PO (11:26)
[2019-08-19] MEDS ORDERED: ASPI81TAEC PO (11:26)
[2019-08-19] MEDS ORDERED: MIRA3350 PO (11:26)
[2019-08-19] MEDS ORDERED: COLA100C5 PO (11:26)
[2019-08-19] MEDS ORDERED: FURO20TA2 PO (11:26)
--- NOTE | 2019-08-19 14:15 | DS.PDOC ---
Discharge Summary General Date of Admission Aug 06, 2019 at 17:50 Date of Discharge 08/19/2019 Attending Physician: CHRIS HOLBROOK MD Discharge Summary PROCEDURES PERFORMED DURING STAY: PICC line insertion on 08/10 ADMITTING DIAGNOSES: 1. DKA DISCHARGE DIAGNOSES: DKA, is a type 1 diabetic History of gastritis and bleed-2014 with recently noted severe gastritis pending surgery with [place] surgeon suggesting 1m of bowel rest, therefore made NPO and started on TPN this admission Gastroparesis Hypertension Dyslipidemia Obstructive sleep apnea Asthma History of TIA GERD status post Gretchen fundoplication Celiac disease Anxiety and depression COMPLICATIONS/CHIEF COMPLAINT: Diabetic Keto Acidosis. HISTORY OF PRESENT ILLNESS: Ms. Sierra was sent in by per PCP, Dr. Sotomayor for DKA in the setting of multiple recent admissions for treatment of DKA. Apparently she has had significant troubles with gastroparesis, and 1 year ago had gastric sleeve surgery, and she apparently got worse thereafter. In the past 2 months she is not able to tolerate much of anything by mouth. On speaking with Dr. Sotomayor at admission, the admitting physician agreed to acutely correct her DKA, and subsequently start her on TPN nutrition via a PICC line, in preparation for a corrective surgery to her stomach in [place], which will be arranged for by Dr. Sotomayor after her discharge from the hospital and for now, will require bowel rest for 1 month. HOSPITAL COURSE: On admission she was treated for DKA and after its resolution, was transferred to the floor where she had a PICC line placed and was started on TPN. Her course was c/b asymptomatic hypoglycemic episodes for which her long acting insulin was reduced to 12u in the morning and 5u at night, with plan for 24h continuous TPN for now, with weekly BMP and monthly triglyceride checks. She is now being discharged home where she will reside with her mother for the immediate future. DISCHARGE MEDICATIONS: Please see below. ALLERGIES: Please see below. PHYSICAL EXAMINATION ON DISCHARGE: VITAL SIGNS: Please see below. General: Alert, Cooperative Chest: Clear to auscultation, Normal air movement, no crackles, wheezing of r honchi Heart:RRR, no mrg Abdomen: soft, NTND Extremity: Normal pulses, no Edema Skin: Nl turgor and temperature, no noted lesions Neuro: CN2-12 intact, speech is clear without dysarthria, moving all extremities Psych: AOx3 LABORATORY DATA: Please see below. IMAGING: None PROGNOSIS: Good ACTIVITY: As tolerated DIET: NPO, on TPN DISCHARGE PLAN: Home with close PCP follow up DISPOSITION: Home DISCHARGE INSTRUCTIONS: 1. Home with close PCP follow up ITEMS TO FOLLOWUP ON ON OUTPATIENT: 1. PCP follow up for continued planning for surgery and TPN management DISCHARGE CONDITION: Stable TIME SPENT ON DISCHARGE: 43 minutes. Vital Signs/I&Os Vital Signs Date Time Temp Pulse Resp B/P (MAP) Pulse Ox O2 Delivery O2 Flow Rate FiO2 08/19/19 06:00 98.5 66 17 102/62 (75) 95 Room Air I&O- Last 24 Hours up to 6 AM 08/19/19 06:00 Intake Total 1920 ml Output Total 2300 ml Balance -380 ml Laboratory Data Labs 24H Laboratory Tests 2 08/18/19 12:02: Bedside Glucose (Misc Panel) 189H 08/18/19 17:58: Bedside Glucose (Misc Panel) 67L 08/18/19 18:47: Bedside Glucose (Misc Panel) 71 08/18/19 20:16: Bedside Glucose (Misc Panel) 84 08/18/19 23:54: Bedside Glucose (Misc Panel) 233H 08/19/19 05:29: Bedside Glucose (Misc Panel) 377H 08/19/19 06:14: Nucleated Red Blood Cells % (auto) 0.0, Anion Gap 9, Glomerular Filtration Rate > 60.0, Calcium Level 8.7, Phosphorus Level 4.9 CBC/BMP Laboratory Tests 08/19/19 06:14 FSBS Laboratory Tests Test 08/18/19 12:02 08/18/19 17:58 08/18/19 18:47 08/18/19 20:16 Range/Units Bedside Glucose (Misc Panel) 189 67 71 84 70-105 MG/DL Test 08/18/19 23:54 08/19/19 05:29 Range/Units Bedside Glucose (Misc Panel) 233 377 70-105 MG/DL Microbiology Microbiology 08/09/19 Gastrointestinal Tract Panel (PCR) - Final, Complete Discharge Medications Scheduled Aspirin (Aspirin EC) 81 Mg Tabec, 81 MG PO DAILY Atorvastatin Calcium (Atorvastatin Calcium) 40 Mg Tablet, 40 MG PO DAILY Cholecalciferol (Vitamin D3) (Vitamin D3) 1,000 Unit Tablet, 1,000 UNITS PO DAILY, (Reported) Clonazepam (Clonazepam) 1 Mg Tablet, 1 MG PO TID Docusate Sodium (Colace) 100 Mg Cap, 100 MG PO BID Ferrous Sulfate (Ferrous Sulfate) 325 Mg Tab, 325 MG PO DAILY Fluoxetine Hcl (Fluoxetine HCl) 20 Mg Capsule, 20 MG PO DAILY Furosemide (Furosemide) 20 Mg Tablet, 20 MG PO DAILY Insulin Aspart (Niacinamide) (Fiasp 100 Unit/ml Flextouch) 100 Unit/1 Ml Insuln.pen, 1 DOSE SC AC PER SLIDING SCALE Insulin Degludec (Tresiba Flextouch U-100) 100 Unit/1 Ml Insuln.pen, 10 UNIT SC DAILY Methocarbamol (Methocarbamol) 500 Mg Tablet, 500 MG PO BID, (Reported) Multivitamins (Thera M Plus Tablet) 1 Tab Tab, 1 TAB PO DAILY, (Reported) Pantoprazole Sodium (Pantoprazole Sodium) 40 Mg Tablet.dr, 40 MG PO BID, (Reported) Pregabalin (Pregabalin) 75 Mg Capsule, 75 MG PO BID, (Reported) Sucralfate (Sucralfate) 1 Gm/10 Ml Oral.susp, 10 ML PO ACHS, (Reported) Scheduled PRN Albuterol Sulfate (Ventolin Hfa) 108 Mcg/Act Aer, 2 PUFFS INH Q4H PRN for SHORTNESS OF BREATH, (Reported) Ammonium Lactate (Ammonium Lactate) 12 % Cre, 1 DOSE TOP DAILY PRN for PAIN, (Reported) APPLY TO FEET Glucagon,Human Recombinant (Glucagon Emergency Kit) 1 Mg Kit, 1 MG IM ASDIRECTED PRN for LOW BLOOD SUGAR, (Reported) Ondansetron (Ondansetron Odt) 4 Mg Tab.rapdis, 4 MG PO Q6H PRN for NAUSEA OR VOMITING, (Reported) Oxycodone HCl/Acetaminophen (Oxycodone-Acetaminophen 5-325) 1 Each Tablet, 1 TAB PO BID PRN for PAIN, (Reported) Polyethylene Glycol 3350 (Miralax) 119 Gm Powder, 17 GM PO DAILY PRN for CONSTIPATION Promethazine HCl (Promethazine HCl) 25 Mg Tablet, 25 MG PO Q6H PRN for NAUSEA OR VOMITING, (Reported) Propylene Glycol/Peg 400 (Systane 0.3-0.4% Eye Drops) 15 Ml Sade, 1 DROP OU QID PRN for DRY EYES, (Reported) Sodium Chloride ([place]) 0.65 % Spr, 2 SPRAY NA QID PRN for NASAL DRYNESS, (Reported) Tizanidine HCl (Tizanidine HCl) 4 Mg Tablet, 4 MG PO TID PRN for MUSCLE SPASMS Allergies Coded Allergies: TAPE (Verified Allergy, Mild, PLASTIC TAPE- RASH, 07/06/19) BANDAIDS -RASH prednisone (Verified Adverse Reaction, Intermediate, EXTREME ELEVATED BLOOD SUGAR, 07/06/19) Gluten Flour (Verified Adverse Reaction, Mild, diarrhea, 07/06/19) gluten (Verified Adverse Reaction, Mild, DIARRHEA, 07/06/19) CHRIS HOLBROOK MD Aug 19, 2019 07:14
== END 2019-08-19 12:30 | disposition home health service (06) | DRG 638 ==
LOC: M ED 08:13 → ENRESERV 17:07 → M PCU 17:50 → M ICU 20:07 → M MSPAV 08-07 11:04
PROVIDERS: ADMIT Neuromusculoskeletal Medicine & OMM; ATTEND Internal Medicine
PROC: 02HV33Z Insertion of Infusion Device into Superior Vena Cava, Percutaneous Approach (ICD-10-PCS; 2019-08-06)
PROC: 02HV33Z Insertion of Infusion Device into Superior Vena Cava, Percutaneous Approach (ICD-10-PCS; principal; 2019-08-11 16:00)
DX: E10.10 Type 1 diabetes mellitus with ketoacidosis without coma (principal); E46 Unspecified protein-calorie malnutrition; K29.70 Gastritis, unspecified, without bleeding; E10.43 Type 1 diabetes mellitus with diabetic autonomic (poly)neuropathy; K31.84 Gastroparesis; F41.9 Anxiety disorder, unspecified; F32.9 Major depressive disorder, single episode, unspecified; K21.9 Gastro-esophageal reflux disease without esophagitis; G47.33 Obstructive sleep apnea (adult) (pediatric); E78.5 Hyperlipidemia, unspecified; I12.9 Hypertensive chronic kidney disease with stage 1 through stage 4 chronic kidney disease, or unspecified chronic kidney disease; J45.909 Unspecified asthma, uncomplicated; Z86.73 Personal history of transient ischemic attack (TIA), and cerebral infarction without residual deficits; K90.0 Celiac disease; Z79.82 Long term (current) use of aspirin; Z79.899 Other long term (current) drug therapy; Z88.8 Allergy status to other drugs, medicaments and biological substances; E87.6 Hypokalemia; N18.9 Chronic kidney disease, unspecified

== ENCOUNTER 2019-08-20 17:06 | Emergency (ER) | payer OTHER, MEDICAID ==
[~2019-08-20] VITALS: Ht 162.6 cm; Wt 57.7 kg
[~2019-08-20 17:06] MED LIST changes: +ATOR40TA75 PO; +FURO20TA2 PO; +SUCR1ORA2 PO
[2019-08-20] MEDS ORDERED: NS 1,000 ML IV SCH (17:38)
[2019-08-20 18:59] LABS: BASO # 0.1 10^3/uL (0.0-0.2); EOS # 0.2 10^3/uL (0.0-0.5); EOS % 3.2 % (0.0-3.0); HEMATOCRIT 31.1 % (36.0-47.0); LYMPH # 1.9 10^3/uL (1.5-5.0); LYMPH % 34.2 % (24.0-44.0); MEAN CORPUSCULAR HEMOGLOBIN 31.1 pg (27.0-33.0); MEAN CORPUSCULAR HGB CONC 32.2 g/dl (32.0-36.5); MEAN CORPUSCULAR VOLUME 96.6 fl (80.0-96.0); MONO # 0.4 10^3/uL (0.0-0.8); MONO % 6.2 % (0.0-5.0); PLATELET COUNT, AUTOMATED 330 10^3/uL (150-450); RED BLOOD COUNT 3.22 10^6/uL (4.00-5.40); WHITE BLOOD COUNT 5.6 10^3/uL (4.0-10.0)
[2019-08-20 19:27] LABS: ALBUMIN 2.6 GM/DL (3.2-5.2); ALT/SGPT 39 U/L (12-78); BILIRUBIN,DIRECT < 0.1 MG/DL (0.0-0.2); BLOOD UREA NITROGEN 32 MG/DL (7-18); CALCIUM LEVEL 8.3 MG/DL (8.5-10.1); CARBON DIOXIDE LEVEL 25 MEQ/L (21-32); CHLORIDE LEVEL 105 MEQ/L (98-107); CREATININE FOR GFR 0.78 MG/DL (0.55-1.30); GLOMERULAR FILTRATION RATE > 60.0 (>51); GLUCOSE, FASTING 169 MG/DL (70-100); LIPASE 61 U/L (73-393); POTASSIUM SERUM 3.9 MEQ/L (3.5-5.1); SODIUM LEVEL 136 MEQ/L (136-145)
--- NOTE | 2019-08-20 19:39 | REPVR ---
PROCEDURE INFORMATION: Exam: CT Abdomen And Pelvis Without Contrast Exam date and time: 08/20/2019 7:17 PM Age: 53 years old Clinical indication: Abdominal pain; Localized; Left upper quadrant (luq); Additional info: Llq pain TECHNIQUE: Imaging protocol: Computed tomography of the abdomen and pelvis without contrast. Radiation optimization: All CT scans at this facility use at least one of these dose optimization techniques: automated exposure control; mA and/or kV adjustment per patient size (includes targeted exams where dose is matched to clinical indication); or iterative reconstruction. COMPARISON: CT ABD/PEL W/IV CONTRAST ONLY 06/18/2019 12:33 PM FINDINGS: Lungs: No suspicious mass or airspace process in the visualized lung bases. Liver: Noncontrast liver shows no obvious lesion. Gallbladder and bile ducts: Gallbladder is surgically absent. Pancreas: Noncontrast pancreas shows no obvious mass or adjacent fluid. Spleen: Noncontrast spleen shows no obvious focal deformity. Adrenals: Adrenal glands are normal in appearance. Kidneys and ureters: Kidneys show no stone or hydronephrosis. Stomach and bowel: Gastric bypass surgical changes are present. No evidence of small bowel obstruction. No evidence of acute diverticulitis. Appendix: Appendix is not seen. No RLQ inflammation to suggest appendicitis. Intraperitoneal space: No pneumoperitoneum. Vasculature: No aortic aneurysm. Lymph nodes: No bulky lymphadenopathy. Bladder: Urinary bladder appears normal. Reproductive: Uterus is surgically absent. Bones/joints: Bony structures show no acute fracture or destructive process. Soft tissues: No concerning focal abnormality of the extra-abdominal and pelvic soft tissues. Other findings: Evaluation of solid organs is limited without IV contrast. IMPRESSION: 1. No acute surgical or inflammatory intra-abdominal or pelvic process. 2. No apparent complication involving the gastric diversion procedure Electronically signed by: Bryce Stevens On 08/20/2019 19:39:39 PM
[2019-08-20 20:11] LABS: BILIRUBIN,TOTAL < 0.1 MG/DL (0.2-1.0)
[2019-08-20 22:23] VITALS: BP 154/87
== END 2019-08-20 22:32 | disposition home or self-care (01) ==
LOC: M ED 17:06
DX: R10.9 Unspecified abdominal pain (principal); E11.9 Type 2 diabetes mellitus without complications; F41.9 Anxiety disorder, unspecified; F32.9 Major depressive disorder, single episode, unspecified; G47.30 Sleep apnea, unspecified; Z87.440 Personal history of urinary (tract) infections; Z98.84 Bariatric surgery status; Z79.82 Long term (current) use of aspirin; Z79.4 Long term (current) use of insulin; Z79.899 Other long term (current) drug therapy; Z88.8 Allergy status to other drugs, medicaments and biological substances; Z91.018 Allergy to other foods; Z91.89 Other specified personal risk factors, not elsewhere classified

== ENCOUNTER → 2019-08-23 | Outpatient (REF) | payer OTHER, MEDICAID ==
[~2019-08-23] MED LIST changes: -ASPI81TA85 PO; +ASPI81TA86 PO; +D31000TA2 PO; +PANT40TA29 PO; -PANT40TA3 PO
[2019-08-23 19:36] LABS: HEMATOCRIT 33.4 % (36.0-47.0); HEMOGLOBIN 10.4 g/dl (12.0-15.5); MEAN CORPUSCULAR HEMOGLOBIN 30.5 pg (27.0-33.0); MEAN CORPUSCULAR HGB CONC 31.1 g/dl (32.0-36.5); MEAN CORPUSCULAR VOLUME 97.9 fl (80.0-96.0); PLATELET COUNT, AUTOMATED 371 10^3/uL (150-450); RED BLOOD COUNT 3.41 10^6/uL (4.00-5.40); WHITE BLOOD COUNT 5.3 10^3/uL (4.0-10.0)
[2019-08-23 19:50] LABS: ALBUMIN 2.8 GM/DL (3.2-5.2); ALT/SGPT 37 U/L (12-78); BILIRUBIN,TOTAL 0.2 MG/DL (0.2-1.0); BLOOD UREA NITROGEN 29 MG/DL (7-18); CALCIUM LEVEL 8.4 MG/DL (8.5-10.1); CARBON DIOXIDE LEVEL 26 MEQ/L (21-32); CHLORIDE LEVEL 108 MEQ/L (98-107); CREATININE FOR GFR 0.74 MG/DL (0.55-1.30); GLOMERULAR FILTRATION RATE > 60.0 (>51); GLUCOSE, FASTING 99 MG/DL (70-100); MAGNESIUM LEVEL 1.8 MG/DL (1.8-2.4); PHOSPHORUS LEVEL 3.4 MG/DL (2.5-4.9); POTASSIUM SERUM 4.1 MEQ/L (3.5-5.1); SODIUM LEVEL 141 MEQ/L (136-145); TOTAL PROTEIN 6.4 GM/DL (6.4-8.2); TRIGLYCERIDES LEVEL 75 MG/DL (<150)
== END ==
LOC: M SHH 18:31
PROVIDERS: ATTEND Internal Medicine
DX: K29.00 Acute gastritis without bleeding (principal); Z79.82 Long term (current) use of aspirin; Z79.51 Long term (current) use of inhaled steroids; Z79.899 Other long term (current) drug therapy

== ENCOUNTER → 2019-08-30 | Outpatient (REF) | payer OTHER, MEDICAID ==
[~2019-08-30] MED LIST changes: +ASPI81TA85 PO; -ASPI81TA86 PO; -D31000TA2 PO; -PANT40TA29 PO; +PANT40TA3 PO
[2019-08-30 13:23] LABS: BASO # 0.1 10^3/uL (0.0-0.2); BASO % 2.1 % (0.0-1.0); EOS # 0.3 10^3/uL (0.0-0.5); HEMOGLOBIN 11.4 g/dl (12.0-15.5); LYMPH # 1.9 10^3/uL (1.5-5.0); LYMPH % 37.4 % (24.0-44.0); MEAN CORPUSCULAR HEMOGLOBIN 31.1 pg (27.0-33.0); MEAN CORPUSCULAR HGB CONC 31.7 g/dl (32.0-36.5); MEAN CORPUSCULAR VOLUME 98.4 fl (80.0-96.0); MONO # 0.3 10^3/uL (0.0-0.8); MONO % 4.8 % (0.0-5.0); NEUTROPHILS # 2.6 10^3/uL (1.5-8.5); NEUTROPHILS % 50.5 % (36.0-66.0); PLATELET COUNT, AUTOMATED 296 10^3/uL (150-450); RED BLOOD COUNT 3.66 10^6/uL (4.00-5.40); WHITE BLOOD COUNT 5.2 10^3/uL (4.0-10.0)
[2019-08-30 13:26] LABS: HEMATOCRIT 36.1 % (36.0-47.0)
[2019-08-30 13:37] LABS: ALBUMIN 3.1 GM/DL (3.2-5.2); ALT/SGPT 40 U/L (12-78); BILIRUBIN,TOTAL 0.2 MG/DL (0.2-1.0); BLOOD UREA NITROGEN 20 MG/DL (7-18); CALCIUM LEVEL 8.5 MG/DL (8.5-10.1); CARBON DIOXIDE LEVEL 25 MEQ/L (21-32); CHLORIDE LEVEL 106 MEQ/L (98-107); CHOLESTEROL LEVEL 182 MG/DL (<200); CHOLESTEROL RISK RATIO 3.956 (<5); CREATININE FOR GFR 0.88 MG/DL (0.55-1.30); FERRITIN 25 NG/ML (8-252); GLOMERULAR FILTRATION RATE > 60.0 (>51); GLUCOSE, FASTING 241 MG/DL (70-100); HDL CHOLESTEROL 46 MG/DL (>40); IRON (FE) 61 UG/DL (50-170); LDL CHOLESTEROL 116 MG/DL (<100); NON-HDL-C 136 MG/DL; PERCENT SATURATION 16.8 % (13.2-45.0); POTASSIUM SERUM 3.6 MEQ/L (3.5-5.1); SODIUM LEVEL 139 MEQ/L (136-145); THYROID STIMULATING HORMONE 0.485 uIU/ML (0.358-3.740); TOTAL IRON BINDING CAPACITY 364 UG/DL (250-450); TOTAL PROTEIN 6.5 GM/DL (6.4-8.2); TRIGLYCERIDES LEVEL 101 MG/DL (<150)
[2019-08-30 14:05] LABS: PTH INTACT 51.1 PG/ML (18.5-88.0); THYROID PEROXIDASE ANTIBODY < 28.0 U/ML (<60.0); TOTAL 25(OH) VITAMIN D 49.9 NG/ML (30.0-100.0); VITAMIN B12 LEVEL 847 PG/ML (247-911)
== END ==
LOC: M SFHCPLAZ 11:34
PROVIDERS: ATTEND Family Medicine
DX: E55.9 Vitamin D deficiency, unspecified (principal); D50.9 Iron deficiency anemia, unspecified; E78.2 Mixed hyperlipidemia

== ENCOUNTER → 2019-08-30 | Outpatient (REF) | payer OTHER, MEDICAID ==
[~2019-08-30] MED LIST changes: -ASPI81TA85 PO; +ASPI81TA86 PO; +D31000TA2 PO; +PANT40TA29 PO; -PANT40TA3 PO
[2019-08-30 18:51] LABS: HEMOGLOBIN 10.8 g/dl (12.0-15.5); MEAN CORPUSCULAR HEMOGLOBIN 31.2 pg (27.0-33.0); MEAN CORPUSCULAR HGB CONC 31.8 g/dl (32.0-36.5); MEAN CORPUSCULAR VOLUME 98.3 fl (80.0-96.0); PLATELET COUNT, AUTOMATED 332 10^3/uL (150-450); RED BLOOD COUNT 3.46 10^6/uL (4.00-5.40); WHITE BLOOD COUNT 5.5 10^3/uL (4.0-10.0)
[2019-08-30 19:13] LABS: ALBUMIN 2.9 GM/DL (3.2-5.2); ALT/SGPT 41 U/L (12-78); BILIRUBIN,TOTAL 0.2 MG/DL (0.2-1.0); BLOOD UREA NITROGEN 22 MG/DL (7-18); CALCIUM LEVEL 8.1 MG/DL (8.5-10.1); CARBON DIOXIDE LEVEL 27 MEQ/L (21-32); CHLORIDE LEVEL 108 MEQ/L (98-107); CREATININE FOR GFR 0.76 MG/DL (0.55-1.30); GLOMERULAR FILTRATION RATE > 60.0 (>51); GLUCOSE, FASTING 65 MG/DL (70-100); MAGNESIUM LEVEL 1.7 MG/DL (1.8-2.4); PHOSPHORUS LEVEL 2.9 MG/DL (2.5-4.9); POTASSIUM SERUM 3.5 MEQ/L (3.5-5.1); SODIUM LEVEL 141 MEQ/L (136-145); TOTAL PROTEIN 6.4 GM/DL (6.4-8.2)
== END ==
LOC: M SHH 17:32
PROVIDERS: ATTEND Internal Medicine
DX: K29.00 Acute gastritis without bleeding (principal); E55.9 Vitamin D deficiency, unspecified; D50.9 Iron deficiency anemia, unspecified; E78.2 Mixed hyperlipidemia

== ENCOUNTER → 2019-09-06 | Outpatient (REF) | payer OTHER, MEDICAID ==
[2019-10-07 21:29] LABS: HEMATOCRIT 33.4 % (36.0-47.0); HEMOGLOBIN 10.5 g/dl (12.0-15.5); MEAN CORPUSCULAR HEMOGLOBIN 30.4 pg (27.0-33.0); MEAN CORPUSCULAR HGB CONC 31.4 g/dl (32.0-36.5); MEAN CORPUSCULAR VOLUME 96.8 fl (80.0-96.0); PLATELET COUNT, AUTOMATED 258 10^3/uL (150-450); RED BLOOD COUNT 3.45 10^6/uL (4.00-5.40); WHITE BLOOD COUNT 5.3 10^3/uL (4.0-10.0)
[2019-10-11 12:15] LABS: ALT/SGPT 33 U/L (12-78); BILIRUBIN,TOTAL 0.2 MG/DL (0.2-1.0); BLOOD UREA NITROGEN 27 MG/DL (7-18); CALCIUM LEVEL 8.6 MG/DL (8.5-10.1); CARBON DIOXIDE LEVEL 27 MEQ/L (21-32); CHLORIDE LEVEL 107 MEQ/L (98-107); CREATININE FOR GFR 0.77 MG/DL (0.55-1.30); GLOMERULAR FILTRATION RATE > 60.0 (>51); GLUCOSE, FASTING 60 MG/DL (70-100); PHOSPHORUS LEVEL 2.4 MG/DL (2.5-4.9); POTASSIUM SERUM 3.5 MEQ/L (3.5-5.1); SODIUM LEVEL 143 MEQ/L (136-145); TOTAL PROTEIN 6.2 GM/DL (6.4-8.2)
== END ==
LOC: M SHH 17:47
PROVIDERS: ATTEND Internal Medicine
DX: K29.00 Acute gastritis without bleeding (principal)

== ENCOUNTER → 2019-09-13 | Outpatient (REF) | payer OTHER, MEDICAID ==
[2019-10-10 20:25] LABS: HEMATOCRIT 35.5 % (36.0-47.0); HEMOGLOBIN 11.5 g/dl (12.0-15.5); MEAN CORPUSCULAR HGB CONC 32.4 g/dl (32.0-36.5); MEAN CORPUSCULAR VOLUME 95.7 fl (80.0-96.0); PLATELET COUNT, AUTOMATED 252 10^3/uL (150-450); RED BLOOD COUNT 3.71 10^6/uL (4.00-5.40); WHITE BLOOD COUNT 5.1 10^3/uL (4.0-10.0)
[2019-10-23 22:02] LABS: ALBUMIN 3.1 GM/DL (3.2-5.2); ALT/SGPT 35 U/L (12-78); BILIRUBIN,TOTAL 0.3 MG/DL (0.2-1.0); BLOOD UREA NITROGEN 29 MG/DL (7-18); CALCIUM LEVEL 8.6 MG/DL (8.5-10.1); CARBON DIOXIDE LEVEL 27 MEQ/L (21-32); CHLORIDE LEVEL 105 MEQ/L (98-107); CREATININE FOR GFR 0.89 MG/DL (0.55-1.30); GLOMERULAR FILTRATION RATE > 60.0 (>51); GLUCOSE, FASTING 213 MG/DL (70-100); MAGNESIUM LEVEL 1.9 MG/DL (1.8-2.4); PHOSPHORUS LEVEL 3.4 MG/DL (2.5-4.9); SODIUM LEVEL 140 MEQ/L (136-145); TOTAL PROTEIN 6.4 GM/DL (6.4-8.2)
== END ==
LOC: M SHH 09:29
PROVIDERS: ATTEND Internal Medicine
DX: K29.00 Acute gastritis without bleeding (principal)

== ENCOUNTER → 2019-09-20 | Outpatient (REF) | payer OTHER, MEDICAID ==
[2019-10-21 12:38] LABS: HEMATOCRIT 37.5 % (36.0-47.0); HEMOGLOBIN 11.6 g/dl (12.0-15.5); MEAN CORPUSCULAR HGB CONC 30.9 g/dl (32.0-36.5); MEAN CORPUSCULAR VOLUME 96.9 fl (80.0-96.0); PLATELET COUNT, AUTOMATED 293 10^3/uL (150-450); RED BLOOD COUNT 3.87 10^6/uL (4.00-5.40); WHITE BLOOD COUNT 4.9 10^3/uL (4.0-10.0)
[2019-11-03 17:19] LABS: ALBUMIN 3.1 GM/DL (3.2-5.2); ALT/SGPT 36 U/L (12-78); BILIRUBIN,TOTAL 0.3 MG/DL (0.2-1.0); BLOOD UREA NITROGEN 25 MG/DL (7-18); CALCIUM LEVEL 8.3 MG/DL (8.5-10.1); CARBON DIOXIDE LEVEL 27 MEQ/L (21-32); CHLORIDE LEVEL 106 MEQ/L (98-107); CREATININE FOR GFR 0.81 MG/DL (0.55-1.30); GLOMERULAR FILTRATION RATE > 60.0 (>51); MAGNESIUM LEVEL 1.9 MG/DL (1.8-2.4); PHOSPHORUS LEVEL 2.9 MG/DL (2.5-4.9); POTASSIUM SERUM 3.6 MEQ/L (3.5-5.1); SODIUM LEVEL 141 MEQ/L (136-145); TOTAL PROTEIN 6.7 GM/DL (6.4-8.2); TRIGLYCERIDES LEVEL 61 MG/DL (<150)
[2019-11-03 17:21] LABS: GLUCOSE, FASTING 28 MG/DL (70-100)
== END ==
LOC: M SHH 13:20
PROVIDERS: ATTEND Internal Medicine
DX: K29.00 Acute gastritis without bleeding (principal); Z79.899 Other long term (current) drug therapy

== ENCOUNTER → 2019-09-23 | Outpatient (REF) | payer OTHER, MEDICAID ==
[2019-10-28 08:06] LABS: HEMATOCRIT 34.8 % (36.0-47.0); MEAN CORPUSCULAR HEMOGLOBIN 30.6 pg (27.0-33.0); MEAN CORPUSCULAR HGB CONC 31.6 g/dl (32.0-36.5); MEAN CORPUSCULAR VOLUME 96.7 fl (80.0-96.0); PLATELET COUNT, AUTOMATED 251 10^3/uL (150-450); WHITE BLOOD COUNT 5.1 10^3/uL (4.0-10.0)
[2019-11-01 08:42] LABS: C-PEPTIDE SEE SEPARATE REPORT
[2019-11-10 09:57] LABS: ALT/SGPT 32 U/L (12-78); BILIRUBIN,TOTAL 0.2 MG/DL (0.2-1.0); BLOOD UREA NITROGEN 28 MG/DL (7-18); CALCIUM LEVEL 8.4 MG/DL (8.5-10.1); CARBON DIOXIDE LEVEL 28 MEQ/L (21-32); CHLORIDE LEVEL 109 MEQ/L (98-107); FERRITIN 30 NG/ML (8-252); GLOMERULAR FILTRATION RATE > 60.0 (>51); GLUCOSE, FASTING 113 MG/DL (70-100); IRON (FE) 72 UG/DL (50-170); PERCENT SATURATION 27.5 % (13.2-45.0); POTASSIUM SERUM 3.7 MEQ/L (3.5-5.1); SODIUM LEVEL 143 MEQ/L (136-145); TOTAL IRON BINDING CAPACITY 262 UG/DL (250-450); TOTAL PROTEIN 6.3 GM/DL (6.4-8.2)
== END ==
LOC: M SHH 15:44
PROVIDERS: ATTEND Family Medicine
DX: E10.9 Type 1 diabetes mellitus without complications (principal); E46 Unspecified protein-calorie malnutrition

== ENCOUNTER → 2019-09-27 | Outpatient (REF) | payer OTHER, MEDICAID ==
[~2019-09-27] MED LIST changes: +COLE625TAB PO; +LEVE1INJ5 SC; +LEVO500T3 PO; +LIDO5OIN19 EX; +LOMO2.5T PO; +PROAAER10 INH; +VARE05TA PO
[2019-11-13 19:06] LABS: HEMOGLOBIN 10.8 g/dl (12.0-15.5); RED BLOOD COUNT 3.46 10^6/uL (4.00-5.40); WHITE BLOOD COUNT 4.5 10^3/uL (4.0-10.0)
[2019-11-13 19:07] LABS: HEMATOCRIT 33.3 % (36.0-47.0); MEAN CORPUSCULAR HEMOGLOBIN 31.2 pg (27.0-33.0); MEAN CORPUSCULAR HGB CONC 32.4 g/dl (32.0-36.5); MEAN CORPUSCULAR VOLUME 96.2 fl (80.0-96.0); PLATELET COUNT, AUTOMATED 244 10^3/uL (150-450)
[2019-11-23 00:44] LABS: ALBUMIN 3.2 GM/DL (3.2-5.2); ALT/SGPT 73 U/L (12-78); BILIRUBIN,TOTAL 0.2 MG/DL (0.2-1.0); BLOOD UREA NITROGEN 28 MG/DL (7-18); CALCIUM LEVEL 8.9 MG/DL (8.5-10.1); CARBON DIOXIDE LEVEL 30 MEQ/L (21-32); CHLORIDE LEVEL 104 MEQ/L (98-107); CREATININE FOR GFR 0.78 MG/DL (0.55-1.30); GLOMERULAR FILTRATION RATE > 60.0 (>51); GLUCOSE, FASTING 57 MG/DL (70-100); SODIUM LEVEL 138 MEQ/L (136-145); TOTAL PROTEIN 6.7 GM/DL (6.4-8.2)
== END ==
LOC: M SHH 09:36
PROVIDERS: ATTEND Internal Medicine
DX: K29.00 Acute gastritis without bleeding (principal)

== ENCOUNTER → 2019-09-30 | Outpatient (CLI) | payer OTHER, MEDICAID ==
[~2019-09-30] MED LIST changes: -COLE625TAB PO; -LEVE1INJ5 SC; -LEVO500T3 PO; -LIDO5OIN19 EX; -LOMO2.5T PO; -PROAAER10 INH; -VARE05TA PO
== END ==
LOC: M LABSMTC 11:37
PROVIDERS: ATTEND Anesthesiology
DX: Z01.812 Encounter for preprocedural laboratory examination (principal); Z20.828 Contact with and (suspected) exposure to other viral communicable diseases

== ENCOUNTER → 2019-10-04 | Outpatient (REF) | payer OTHER, MEDICAID ==
[~2019-10-04] MED LIST changes: +COLE625TAB PO; +LEVE1INJ5 SC; +LEVO500T3 PO; +LIDO5OIN19 EX; +LOMO2.5T PO; +PROAAER10 INH; +VARE05TA PO
[2019-10-04 16:06] LABS: HEMATOCRIT 37.3 % (36.0-47.0); HEMOGLOBIN 11.8 g/dl (12.0-15.5); MEAN CORPUSCULAR HEMOGLOBIN 30.8 pg (27.0-33.0); MEAN CORPUSCULAR HGB CONC 31.6 g/dl (32.0-36.5); MEAN CORPUSCULAR VOLUME 97.4 fl (80.0-96.0); PLATELET COUNT, AUTOMATED 306 10^3/uL (150-450); RED BLOOD COUNT 3.83 10^6/uL (4.00-5.40); WHITE BLOOD COUNT 6.8 10^3/uL (4.0-10.0)
[2019-10-04 16:35] LABS: ALBUMIN 3.2 GM/DL (3.2-5.2); ALT/SGPT 270 U/L (12-78); BILIRUBIN,TOTAL 0.2 MG/DL (0.2-1.0); BLOOD UREA NITROGEN 20 MG/DL (7-18); CALCIUM LEVEL 8.7 MG/DL (8.5-10.1); CARBON DIOXIDE LEVEL 27 MEQ/L (21-32); CHLORIDE LEVEL 105 MEQ/L (98-107); GLOMERULAR FILTRATION RATE > 60.0 (>51); GLUCOSE, FASTING 201 MG/DL (70-100); MAGNESIUM LEVEL 1.9 MG/DL (1.8-2.4); PHOSPHORUS LEVEL 3.9 MG/DL (2.5-4.9); POTASSIUM SERUM 4.3 MEQ/L (3.5-5.1); SODIUM LEVEL 141 MEQ/L (136-145); TOTAL PROTEIN 6.7 GM/DL (6.4-8.2)
== END ==
LOC: M SHH 12:55
PROVIDERS: ATTEND Internal Medicine
DX: K29.00 Acute gastritis without bleeding (principal)

== ENCOUNTER 2019-10-05 11:52 | Day surgery (SDC) | payer OTHER, MEDICAID ==
[~2019-10-05] VITALS: Ht 162.6 cm; Wt 56.7 kg
[~2019-10-05 11:52] MED LIST changes: -COLE625TAB PO; -LEVE1INJ5 SC; -LEVO500T3 PO; -LIDO5OIN19 EX; -LOMO2.5T PO; -PROAAER10 INH; -VARE05TA PO
[2019-10-05] MEDS ORDERED: propofoL 200 MG/20 ML VIAL As Ordered ONE (12:38)
[2019-10-05] MEDS ORDERED: LIDOCAINE 2% 100MG/5ML SDV (FOR ANES.) As Ordered ONE (12:38)
[2019-10-05] MEDS ORDERED: NS 1,000 ML IV ONE (13:15)
[2019-10-05 14:10] VITALS: BP 128/72
--- NOTE | 2019-10-20 11:36 | ROOR ---
Patient Name: Alia Sierra Procedure Date: 10/05/2019 11:30 AM Date of : 1965 Age: 53 Room: [facility] Gender: Female Note Status: Finalized Procedure: Upper GI endoscopy Indications: Follow-up of reflux esophagitis, Follow-up of gastric stenosis Providers: Cesario Gardner MD Referring MD: Leonard Sotomayor MD Requesting Provider: Medicines: Monitored Anesthesia Care Complications: No immediate complications. Procedure: Pre-Anesthesia Assessment: - Prior to the procedure, a History and Physical was performed, and patient medications and allergies were reviewed. The patient is competent. The risks and benefits of the procedure and the sedation options and risks were discussed with the patient. All questions were answered and informed consent was obtained. Patient identification and proposed procedure were verified by the physician, the nurse and the anesthesiologist in the procedure room. Mental Status Examination: alert and oriented. Airway Examination: normal oropharyngeal airway and neck mobility. Respiratory Examination: clear to auscultation. CV Examination: normal. Prophylactic Antibiotics: The patient does not require prophylactic antibiotics. Prior Anticoagulants: The patient has taken no previous anticoagulant or antiplatelet agents. ASA Grade Assessment: II - A patient with mild systemic disease. After reviewing the risks and benefits, the patient was deemed in satisfactory condition to undergo the procedure. The anesthesia plan was to use monitored anesthesia care (MAC). Immediately prior to administration of medications, the patient was re-assessed for adequacy to receive sedatives. The heart rate, respiratory rate, oxygen saturations, blood pressure, adequacy of pulmonary ventilation, and response to care were monitored throughout the procedure. The physical status of the patient was re-assessed after the procedure. The Endoscope was introduced through the mouth, and advanced to the second part of duodenum. The upper GI endoscopy was accomplished without difficulty. The patient tolerated the procedure well. Findings: LA Grade A (one or more mucosal breaks less than 5 mm, not extending between tops of 2 mucosal folds) esophagitis with no bleeding was found in the distal esophagus. Biopsies were taken with a cold forceps for histology. Verification of patient identification for the specimen was done by the physician and nurse using the patient's name, date and medical record number. Estimated blood loss was minimal. The Z-line was regular and was found 35 cm from the incisors. A 2 cm hiatal hernia was found. The proximal extent of the gastric folds (end of tubular esophagus) was 35 cm from the incisors. The hiatal narrowing was 37 cm from the incisors. The Z-line was 35 cm from the incisors. A benign-appearing, intrinsic severe stenosis was found in the gastric body. This was traversed. This stenosis is at 47 cm from incisors, likely from Prior gastric sleeve surgery. The duodenal bulb and second portion of the duodenum were normal. Impression: - LA Grade A reflux esophagitis. Biopsied. - Z-line regular, 35 cm from the incisors. - 2 cm hiatal hernia. - Gastric stenosis was found in the gastric body. - Normal duodenal bulb and second portion of the duodenum. Recommendation: - Patient has a contact number available for emergencies. The signs and symptoms of potential delayed complications were discussed with the patient. Return to normal activities tomorrow. Written discharge instructions were provided to the patient. - Full liquid diet and Anti-acid reflux diet -- small meals, sit upright atleast 1 hour after meals, avoid fatty/ oily foods and avoid foods that cause reflux. ( this is only for supplemental diet. Continue the TPN until you see the surgeon). - Continue present medications. - Follow an antireflux regimen. - Refer to a surgeon as previously scheduled. - Return to GI clinic if persistent symptoms or new symptoms. - Return to primary care physician. - Telephone GI clinic for pathology results in 2 weeks. Cesario Gardner MD Cesario Gardner MD 10/05/2019 2:20:16 PM Number of Addenda: 0 Note Initiated On: 10/05/2019 11:30 AM Estimated Blood Loss: Estimated blood loss was minimal.
== END 2019-10-05 14:20 | disposition home or self-care (01) ==
LOC: M OPP 11:52
PROVIDERS: ATTEND Internal Medicine Gastroenterology
DX: K21.0 Gastro-esophageal reflux disease with esophagitis (principal); K44.9 Diaphragmatic hernia without obstruction or gangrene; K31.89 Other diseases of stomach and duodenum; E10.69 Type 1 diabetes mellitus with other specified complication; Z79.82 Long term (current) use of aspirin; Z79.84 Long term (current) use of oral hypoglycemic drugs; Z79.899 Other long term (current) drug therapy

== ENCOUNTER → 2019-10-11 | Outpatient (REF) | payer OTHER, MEDICAID ==
[~2019-10-11] MED LIST changes: +COLE625TAB PO; +LEVE1INJ5 SC; +LEVO500T3 PO; +LIDO5OIN19 EX; +LOMO2.5T PO; +PROAAER10 INH; +VARE05TA PO
[2019-10-11 13:56] LABS: HEMATOCRIT 36.1 % (36.0-47.0); HEMOGLOBIN 11.6 g/dl (12.0-15.5); MEAN CORPUSCULAR HEMOGLOBIN 30.7 pg (27.0-33.0); MEAN CORPUSCULAR HGB CONC 32.1 g/dl (32.0-36.5); MEAN CORPUSCULAR VOLUME 95.5 fl (80.0-96.0); PLATELET COUNT, AUTOMATED 322 10^3/uL (150-450); RED BLOOD COUNT 3.78 10^6/uL (4.00-5.40); WHITE BLOOD COUNT 4.8 10^3/uL (4.0-10.0)
[2019-10-11 14:05] LABS: ALBUMIN 3.1 GM/DL (3.2-5.2); ALT/SGPT 186 U/L (12-78); BILIRUBIN,TOTAL 0.1 MG/DL (0.2-1.0); BLOOD UREA NITROGEN 28 MG/DL (7-18); CALCIUM LEVEL 8.6 MG/DL (8.5-10.1); CARBON DIOXIDE LEVEL 28 MEQ/L (21-32); CHLORIDE LEVEL 106 MEQ/L (98-107); CREATININE FOR GFR 0.75 MG/DL (0.55-1.30); GLOMERULAR FILTRATION RATE > 60.0 (>51); GLUCOSE, FASTING 84 MG/DL (70-100); MAGNESIUM LEVEL 1.9 MG/DL (1.8-2.4); PHOSPHORUS LEVEL 3.2 MG/DL (2.5-4.9); POTASSIUM SERUM 4.2 MEQ/L (3.5-5.1); SODIUM LEVEL 140 MEQ/L (136-145)
== END ==
LOC: M SHH 11:20 → M LAB REF 11:20
PROVIDERS: ATTEND Internal Medicine
DX: K29.00 Acute gastritis without bleeding (principal)

== ENCOUNTER → 2019-10-17 | Outpatient (REF) | payer OTHER, MEDICAID ==
[2019-10-17 08:45] LABS: HEMATOCRIT 36.2 % (36.0-47.0); HEMOGLOBIN 11.3 g/dl (12.0-15.5); MEAN CORPUSCULAR HEMOGLOBIN 30.1 pg (27.0-33.0); MEAN CORPUSCULAR HGB CONC 31.2 g/dl (32.0-36.5); MEAN CORPUSCULAR VOLUME 96.5 fl (80.0-96.0); PLATELET COUNT, AUTOMATED 356 10^3/uL (150-450); RED BLOOD COUNT 3.75 10^6/uL (4.00-5.40); WHITE BLOOD COUNT 6.3 10^3/uL (4.0-10.0)
[2019-10-17 09:49] LABS: ALT/SGPT 146 U/L (12-78); BILIRUBIN,TOTAL 0.1 MG/DL (0.2-1.0); BLOOD UREA NITROGEN 30 MG/DL (7-18); CALCIUM LEVEL 8.7 MG/DL (8.5-10.1); CARBON DIOXIDE LEVEL 27 MEQ/L (21-32); CHLORIDE LEVEL 111 MEQ/L (98-107); GLOMERULAR FILTRATION RATE > 60.0 (>51); GLUCOSE, FASTING 33 MG/DL (70-100); MAGNESIUM LEVEL 1.8 MG/DL (1.8-2.4); POTASSIUM SERUM 4.1 MEQ/L (3.5-5.1); SODIUM LEVEL 143 MEQ/L (136-145); TOTAL PROTEIN 6.6 GM/DL (6.4-8.2); TRIGLYCERIDES LEVEL 49 MG/DL (<150)
== END ==
LOC: M LAB 08:37
PROVIDERS: ATTEND Internal Medicine
DX: K29.00 Acute gastritis without bleeding (principal); Z79.899 Other long term (current) drug therapy

== ENCOUNTER → 2019-10-25 | Outpatient (REF) | payer OTHER, MEDICAID ==
[2019-10-25 13:04] LABS: HEMATOCRIT 35.8 % (36.0-47.0); MEAN CORPUSCULAR HEMOGLOBIN 29.9 pg (27.0-33.0); MEAN CORPUSCULAR HGB CONC 30.7 g/dl (32.0-36.5); MEAN CORPUSCULAR VOLUME 97.3 fl (80.0-96.0); PLATELET COUNT, AUTOMATED 333 10^3/uL (150-450); RED BLOOD COUNT 3.68 10^6/uL (4.00-5.40); WHITE BLOOD COUNT 4.9 10^3/uL (4.0-10.0)
[2019-10-25 13:17] LABS: ALBUMIN 3.1 GM/DL (3.2-5.2); ALT/SGPT 144 U/L (12-78); BILIRUBIN,TOTAL 0.2 MG/DL (0.2-1.0); BLOOD UREA NITROGEN 26 MG/DL (7-18); CALCIUM LEVEL 8.7 MG/DL (8.5-10.1); CARBON DIOXIDE LEVEL 26 MEQ/L (21-32); CHLORIDE LEVEL 109 MEQ/L (98-107); GLOMERULAR FILTRATION RATE > 60.0 (>51); GLUCOSE, FASTING 65 MG/DL (70-100); MAGNESIUM LEVEL 2.1 MG/DL (1.8-2.4); POTASSIUM SERUM 4.5 MEQ/L (3.5-5.1); SODIUM LEVEL 141 MEQ/L (136-145); TOTAL PROTEIN 6.4 GM/DL (6.4-8.2)
== END ==
LOC: M SHH 12:26
PROVIDERS: ATTEND Internal Medicine
DX: K29.00 Acute gastritis without bleeding (principal)

== ENCOUNTER → 2019-11-01 | Outpatient (REF) | payer OTHER, MEDICAID ==
[2019-11-01 11:50] LABS: HEMATOCRIT 35.8 % (36.0-47.0); HEMOGLOBIN 10.9 g/dl (12.0-15.5); MEAN CORPUSCULAR HEMOGLOBIN 29.8 pg (27.0-33.0); MEAN CORPUSCULAR HGB CONC 30.4 g/dl (32.0-36.5); MEAN CORPUSCULAR VOLUME 97.8 fl (80.0-96.0); PLATELET COUNT, AUTOMATED 313 10^3/uL (150-450); RED BLOOD COUNT 3.66 10^6/uL (4.00-5.40)
[2019-11-01 12:46] LABS: ALBUMIN 3.1 GM/DL (3.2-5.2); ALT/SGPT 72 U/L (12-78); BILIRUBIN,TOTAL 0.2 MG/DL (0.2-1.0); BLOOD UREA NITROGEN 29 MG/DL (7-18); CALCIUM LEVEL 8.4 MG/DL (8.5-10.1); CARBON DIOXIDE LEVEL 25 MEQ/L (21-32); CHLORIDE LEVEL 107 MEQ/L (98-107); CREATININE FOR GFR 0.84 MG/DL (0.55-1.30); GLOMERULAR FILTRATION RATE > 60.0 (>51); GLUCOSE, FASTING 321 MG/DL (70-100); PHOSPHORUS LEVEL 3.7 MG/DL (2.5-4.9); POTASSIUM SERUM 4.5 MEQ/L (3.5-5.1); SODIUM LEVEL 137 MEQ/L (136-145); TOTAL PROTEIN 6.5 GM/DL (6.4-8.2)
== END ==
LOC: M SHH 10:11
PROVIDERS: ATTEND Internal Medicine
DX: K29.00 Acute gastritis without bleeding (principal)

== ENCOUNTER → 2019-11-03 | Outpatient (CLI) | payer OTHER, MEDICAID ==
[~2019-11-03] MED LIST changes: +LIDOCAINE 1% MDV 20ML VIAL As Ordered ONE
[2019-11-03 12:43] VITALS: BP 126/61
--- NOTE | 2019-11-12 07:08 | REP ---
PICC LINE INSERTION WITH SITE-RITE This procedure was performed by SARAH Cosby, under the direct supervision of Dr. Manuel. The risks and benefits of the procedure were explained to the patient, and an informed consent was obtained both verbally and written. Directly prior to the start of the procedure, a formal time out was completed. The left basilic vein was localized using ultrasound guidance. The skin was prepped and draped in a sterile fashion. Approximately 1 mL of 1% lidocaine was used as a local anesthetic. Using ultrasound guidance, the basilic vein was cannulated and immediately infiltrated. Using ultrasound guidance, a more proximal location was found, and cannulization was reattempted. Once the vein was cannulated, a 0.018 guidewire was inserted and advanced to the SVC using fluoroscopic guidance. The needle was removed, and a 5.5-Gambian dilator and peel away sheath was inserted over the guidewire. A 5.5-Gambian double lumen catheter was cut to the length of 30 cm. The dilator was removed, and the catheter was inserted over the guidewire with the tip ending at the SVC. The peel away sheath was removed, and the catheter was flushed with heparinized saline as per protocol. The catheter was to affix to the skin, and a sterile dressing was applied. It was noticed at this time that another hematoma was forming at the site of the PICC line, and an ultrasound was performed. After holding pressure, the hematoma started resolving, and no active bleeding was visualized, and the PICC flushed perfectly fine. The patient tolerated the procedure well, and there were no immediately complications. 0.2 minutes of fluoroscopy time was utilized for this procedure. CHARLY
== END ==
LOC: M IRPRO 12:36
PROVIDERS: ATTEND Family Medicine
DX: Z76.0 Encounter for issue of repeat prescription (principal); E63.9 Nutritional deficiency, unspecified
CPT/HCPCS: 36571; 76937; C1751; J1642; J1644

== ENCOUNTER → 2019-11-08 | Outpatient (REF) | payer OTHER, MEDICAID ==
[~2019-11-08] MED LIST changes: -LIDOCAINE 1% MDV 20ML VIAL As Ordered ONE
[2019-11-08 12:21] LABS: HEMATOCRIT 34.2 % (36.0-47.0); HEMOGLOBIN 10.4 g/dl (12.0-15.5); MEAN CORPUSCULAR HEMOGLOBIN 29.5 pg (27.0-33.0); MEAN CORPUSCULAR HGB CONC 30.4 g/dl (32.0-36.5); MEAN CORPUSCULAR VOLUME 97.2 fl (80.0-96.0); PLATELET COUNT, AUTOMATED 257 10^3/uL (150-450); RED BLOOD COUNT 3.52 10^6/uL (4.00-5.40); WHITE BLOOD COUNT 4.5 10^3/uL (4.0-10.0)
[2019-11-08 12:47] LABS: ALBUMIN 3.2 GM/DL (3.2-5.2); ALT/SGPT 51 U/L (12-78); BILIRUBIN,TOTAL 0.2 MG/DL (0.2-1.0); BLOOD UREA NITROGEN 28 MG/DL (7-18); CALCIUM LEVEL 8.8 MG/DL (8.5-10.1); CARBON DIOXIDE LEVEL 25 MEQ/L (21-32); CHLORIDE LEVEL 108 MEQ/L (98-107); CREATININE FOR GFR 0.91 MG/DL (0.55-1.30); GLOMERULAR FILTRATION RATE > 60.0 (>51); GLUCOSE, FASTING 170 MG/DL (70-100); PHOSPHORUS LEVEL 4.1 MG/DL (2.5-4.9); SODIUM LEVEL 139 MEQ/L (136-145); TOTAL PROTEIN 6.6 GM/DL (6.4-8.2)
== END ==
LOC: M SHH 10:50
PROVIDERS: ATTEND Internal Medicine
DX: K29.00 Acute gastritis without bleeding (principal)

== ENCOUNTER → 2019-11-15 | Outpatient (REF) | payer OTHER, MEDICAID ==
[2019-11-15 13:01] LABS: APPEARANCE, URINE CLEAR (CLEAR); BACTERIA, URINE AUTO NEGATIVE (NEGATIVE); BILIRUBIN, URINE AUTO NEGATIVE (NEGATIVE); BLOOD, URINE BLOOD NEGATIVE (NEGATIVE); COLOR, URINE YELLOW (YELLOW); GLUCOSE, URINE (UA) AUTO NEGATIVE (NEGATIVE); KETONE, URINE AUTO NEGATIVE (NEGATIVE); LEUKOCYTE ESTERASE, URINE AUTO TRACE (NEGATIVE); NITRITE, URINE AUTO NEGATIVE (NEGATIVE); PROTEIN, URINE AUTO NEGATIVE (NEGATIVE); RBC, URINE AUTO 2 /HPF (0-3); SPECIFIC GRAVITY URINE AUTO 1.018 (1.002-1.035); SQUAMOUS EPITHELIAL CELL UR AU 1 /HPF (0-6); UROBILINOGEN, URINE AUTO 0.2 mg/dL (0.0-2.0); WBC, URINE AUTO 6 /HPF (0-3)
[2019-11-15 13:05] LABS: BASO # 0.1 10^3/uL (0.0-0.2); BASO % 1.7 % (0.0-1.0); EOS # 0.3 10^3/uL (0.0-0.5); EOS % 5.2 % (0.0-3.0); HEMATOCRIT 36.9 % (36.0-47.0); HEMOGLOBIN 11.4 g/dl (12.0-15.5); LYMPH # 2.4 10^3/uL (1.5-5.0); LYMPH % 35.8 % (24.0-44.0); MEAN CORPUSCULAR HEMOGLOBIN 29.2 pg (27.0-33.0); MEAN CORPUSCULAR HGB CONC 30.9 g/dl (32.0-36.5); MEAN CORPUSCULAR VOLUME 94.4 fl (80.0-96.0); MONO # 0.6 10^3/uL (0.0-0.8); MONO % 9.1 % (0.0-5.0); NEUTROPHILS # 3.1 10^3/uL (1.5-8.5); NEUTROPHILS % 47.4 % (36.0-66.0); PLATELET COUNT, AUTOMATED 325 10^3/uL (150-450); RED BLOOD COUNT 3.91 10^6/uL (4.00-5.40); WHITE BLOOD COUNT 6.6 10^3/uL (4.0-10.0)
[2019-11-15 13:13] LABS: INR 0.98; PROTHROMBIN TIME 13.2 SECONDS (12.5-14.3)
[2019-11-15 13:14] LABS: ALBUMIN 3.3 GM/DL (3.2-5.2); ALT/SGPT 104 U/L (12-78); BILIRUBIN,TOTAL 0.3 MG/DL (0.2-1.0); BLOOD UREA NITROGEN 27 MG/DL (7-18); CALCIUM LEVEL 8.8 MG/DL (8.5-10.1); CARBON DIOXIDE LEVEL 27 MEQ/L (21-32); CHLORIDE LEVEL 107 MEQ/L (98-107); CHOLESTEROL LEVEL 186 MG/DL (<200); CHOLESTEROL RISK RATIO 2.354 (<5); CPK CREATINE PHOSPHOKINASE 110 U/L (26-192); CREATININE FOR GFR 0.87 MG/DL (0.55-1.30); FERRITIN 24 NG/ML (8-252); FREE T4 0.77 NG/DL (0.76-1.46); GLOMERULAR FILTRATION RATE > 60.0 (>51); GLUCOSE, FASTING 45 MG/DL (70-100); HDL CHOLESTEROL 79 MG/DL (>40); IRON (FE) 112 UG/DL (50-170); LDL CHOLESTEROL 95 MG/DL (<100); NON-HDL-C 107 MG/DL; PARTIAL THROMBOPLASTIN TIME 27.8 SECONDS (24.2-38.5); PERCENT SATURATION 27.7 % (13.2-45.0); POTASSIUM SERUM 3.9 MEQ/L (3.5-5.1); PTH INTACT 221.4 PG/ML (18.5-88.0); SODIUM LEVEL 142 MEQ/L (136-145); TOTAL IRON BINDING CAPACITY 405 UG/DL (250-450); TOTAL PROTEIN 6.9 GM/DL (6.4-8.2); TRIGLYCERIDES LEVEL 62 MG/DL (<150); VITAMIN B12 LEVEL 1331 PG/ML (247-911)
[2019-11-15 13:29] LABS: HEMOGLOBIN A1c 7.7 %
[2019-11-15 13:48] LABS: CREATININE, URINE 75.8 MG/DL; MALB URINE SIEMENS 10.8 MG/L; MAU/CREAT RATIO 14.2 MCG/MG (0.0-30.0)
[2019-11-17 12:50] LABS: NT-PRO BNP 29 PG/ML (<125); TROPONIN I < 0.02 NG/ML (< 0.10)
== END ==
LOC: M SHH 10:41
PROVIDERS: ATTEND Family Medicine
DX: Z78.9 Other specified health status (principal); E78.5 Hyperlipidemia, unspecified; E55.9 Vitamin D deficiency, unspecified; E78.2 Mixed hyperlipidemia; E10.65 Type 1 diabetes mellitus with hyperglycemia; Z79.01 Long term (current) use of anticoagulants

== ENCOUNTER → 2019-11-18 | Outpatient (REF) | payer OTHER, MEDICAID ==
[~2019-11-18] MED LIST changes: -COLE625TAB PO; -LEVE1INJ5 SC; -LEVO500T3 PO; -LIDO5OIN19 EX; -LOMO2.5T PO; -PROAAER10 INH; -VARE05TA PO
[2019-11-23 16:08] LABS: VITAMIN B1 LEVEL WHOLE BLOOD 212.6 nmol/L (66.5-200.0)
== END ==
LOC: M SHH 11:21
PROVIDERS: ATTEND Family Medicine
DX: Z78.9 Other specified health status (principal)

== ENCOUNTER → 2019-11-19 | Outpatient (CLI) | payer OTHER, MEDICAID | LOC: M LABSMTC 12:13 | PROVIDERS: ATTEND Internal Medicine | DX: Z20.828 Contact with and (suspected) exposure to other viral communicable diseases (principal) | CPT/HCPCS: C9803; U0003 ==

== ENCOUNTER → 2019-11-22 | Outpatient (REF) | payer OTHER, MEDICAID ==
[2019-11-22 12:30] LABS: HEMATOCRIT 37.3 % (36.0-47.0); HEMOGLOBIN 11.4 g/dl (12.0-15.5); MEAN CORPUSCULAR HEMOGLOBIN 29.3 pg (27.0-33.0); MEAN CORPUSCULAR HGB CONC 30.6 g/dl (32.0-36.5); MEAN CORPUSCULAR VOLUME 95.9 fl (80.0-96.0); PLATELET COUNT, AUTOMATED 281 10^3/uL (150-450); RED BLOOD COUNT 3.89 10^6/uL (4.00-5.40); WHITE BLOOD COUNT 6.1 10^3/uL (4.0-10.0)
[2019-11-22 12:54] LABS: ALBUMIN 3.3 GM/DL (3.2-5.2); ALT/SGPT 128 U/L (12-78); BILIRUBIN,TOTAL 0.3 MG/DL (0.2-1.0); BLOOD UREA NITROGEN 23 MG/DL (7-18); CALCIUM LEVEL 8.8 MG/DL (8.5-10.1); CARBON DIOXIDE LEVEL 29 MEQ/L (21-32); CHLORIDE LEVEL 105 MEQ/L (98-107); CREATININE FOR GFR 0.96 MG/DL (0.55-1.30); GLOMERULAR FILTRATION RATE > 60.0 (>51); GLUCOSE, FASTING 50 MG/DL (70-100); MAGNESIUM LEVEL 2.1 MG/DL (1.8-2.4); PHOSPHORUS LEVEL 4.7 MG/DL (2.5-4.9); POTASSIUM SERUM 4.4 MEQ/L (3.5-5.1); SODIUM LEVEL 140 MEQ/L (136-145); TOTAL PROTEIN 6.7 GM/DL (6.4-8.2); TRIGLYCERIDES LEVEL 46 MG/DL (<150)
== END ==
LOC: M SHH 11:40
PROVIDERS: ATTEND Internal Medicine
DX: K29.00 Acute gastritis without bleeding (principal)

== ENCOUNTER 2019-11-29 10:38 | Emergency (ER) | payer OTHER, MEDICAID ==
[~2019-11-29] VITALS: Ht 162.6 cm; Wt 67.7 kg
[2019-11-29] MEDS ORDERED: ONDANSETRON 4MG/2ML VIAL IV ONE (11:45)
[2019-11-29] MEDS ORDERED: KETOROLAC 30 MG/ML 1ML VIAL IV ONE (11:45)
[2019-11-29] MEDS ORDERED: NS 1,000 ML IV ONE (11:45)
[2019-11-29] MEDS ORDERED: SODIUM CHLORIDE 0.9% INJ 10 ML SYR IV PRN (11:45)
[2019-11-29 14:26] LABS: HEMOGLOBIN 11.6 g/dl (12.0-15.5); MEAN CORPUSCULAR HEMOGLOBIN 28.4 pg (27.0-33.0); MEAN CORPUSCULAR HGB CONC 30.5 g/dl (32.0-36.5); MEAN CORPUSCULAR VOLUME 92.9 fl (80.0-96.0); PLATELET COUNT, AUTOMATED 186 10^3/uL (150-450); RED BLOOD COUNT 4.09 10^6/uL (4.00-5.40); WHITE BLOOD COUNT 3.8 10^3/uL (4.0-10.0)
[2019-11-29 14:55] LABS: ALT/SGPT 75 U/L (12-78); BILIRUBIN,TOTAL 0.1 MG/DL (0.2-1.0); BLOOD UREA NITROGEN 18 MG/DL (7-18); CARBON DIOXIDE LEVEL 28 MEQ/L (21-32); CHLORIDE LEVEL 107 MEQ/L (98-107); CREATININE FOR GFR 1.01 MG/DL (0.55-1.30); GLOMERULAR FILTRATION RATE > 60.0 (>51); GLUCOSE, FASTING 72 MG/DL (70-100); SODIUM LEVEL 142 MEQ/L (136-145); TOTAL PROTEIN 7.1 GM/DL (6.4-8.2)
[2019-11-29 15:07] LABS: BASOPHILS 2 % (0-1); EOSINOPHILS 1 % (0-3); LYMPHOCYTES 36 % (16-44); MONOCYTES 5 % (0-5); NEUTROPHILS 56 % (28-66)
[2019-11-29 15:08] LABS: PLATELET ESTIMATE NORMAL (NORMAL)
[2019-11-29 15:31] VITALS: BP 116/64
[2019-11-29] MEDS ORDERED: SODIUM CHLORIDE 0.9% INJ 10 ML SYR IV SCH (18:00)
== END 2019-11-29 16:01 | disposition home or self-care (01) ==
LOC: M ED 10:38
DX: B34.9 Viral infection, unspecified (principal); Z20.828 Contact with and (suspected) exposure to other viral communicable diseases; E11.9 Type 2 diabetes mellitus without complications; I10 Essential (primary) hypertension; J44.9 Chronic obstructive pulmonary disease, unspecified; K21.9 Gastro-esophageal reflux disease without esophagitis; Z79.51 Long term (current) use of inhaled steroids; Z79.899 Other long term (current) drug therapy
CPT/HCPCS: 80053; 83735; 85025; 96361; 96374; 96375; 99284; J1642; J1885; J2405; U0003

== ENCOUNTER → 2019-12-03 | Outpatient (REF) | payer OTHER, MEDICAID ==
[2019-12-03 15:06] LABS: BASO # 0.1 10^3/uL (0.0-0.2); BASO % 1.5 % (0.0-1.0); EOS # 0.1 10^3/uL (0.0-0.5); EOS % 2.1 % (0.0-3.0); HEMATOCRIT 35.7 % (36.0-47.0); HEMOGLOBIN 11.3 g/dl (12.0-15.5); LYMPH # 2.4 10^3/uL (1.5-5.0); LYMPH % 36.4 % (24.0-44.0); MEAN CORPUSCULAR HEMOGLOBIN 29.6 pg (27.0-33.0); MEAN CORPUSCULAR HGB CONC 31.7 g/dl (32.0-36.5); MEAN CORPUSCULAR VOLUME 93.5 fl (80.0-96.0); MONO # 0.5 10^3/uL (0.0-0.8); NEUTROPHILS # 3.5 10^3/uL (1.5-8.5); NEUTROPHILS % 52.7 % (36.0-66.0); PLATELET COUNT, AUTOMATED 307 10^3/uL (150-450); RED BLOOD COUNT 3.82 10^6/uL (4.00-5.40); WHITE BLOOD COUNT 6.7 10^3/uL (4.0-10.0)
[2019-12-03 15:30] LABS: ALBUMIN 3.3 GM/DL (3.2-5.2); ALT/SGPT 158 U/L (12-78); BILIRUBIN,TOTAL 0.2 MG/DL (0.2-1.0); BLOOD UREA NITROGEN 21 MG/DL (7-18); CALCIUM LEVEL 8.8 MG/DL (8.5-10.1); CARBON DIOXIDE LEVEL 29 MEQ/L (21-32); CHLORIDE LEVEL 107 MEQ/L (98-107); CREATININE FOR GFR 0.87 MG/DL (0.55-1.30); GLOMERULAR FILTRATION RATE > 60.0 (>51); GLUCOSE, FASTING 56 MG/DL (70-100); LIPASE 171 U/L (73-393); POTASSIUM SERUM 4.7 MEQ/L (3.5-5.1); SODIUM LEVEL 140 MEQ/L (136-145)
== END ==
LOC: M SFHCPLAZ 13:50
PROVIDERS: ATTEND Family Medicine
DX: R50.9 Fever, unspecified (principal)
CPT/HCPCS: 36415; 80053; 83605; 83690; 85025; 87507; G0463

== ENCOUNTER → 2019-12-06 | Outpatient (REF) | payer OTHER, MEDICAID ==
[2019-12-06 15:08] LABS: HEMATOCRIT 35.8 % (36.0-47.0); HEMOGLOBIN 10.9 g/dl (12.0-15.5); MEAN CORPUSCULAR HEMOGLOBIN 28.2 pg (27.0-33.0); MEAN CORPUSCULAR HGB CONC 30.4 g/dl (32.0-36.5); MEAN CORPUSCULAR VOLUME 92.7 fl (80.0-96.0); PLATELET COUNT, AUTOMATED 434 10^3/uL (150-450); RED BLOOD COUNT 3.86 10^6/uL (4.00-5.40); WHITE BLOOD COUNT 6.8 10^3/uL (4.0-10.0)
[2019-12-06 15:32] LABS: ALT/SGPT 229 U/L (12-78); BILIRUBIN,TOTAL 0.2 MG/DL (0.2-1.0); BLOOD UREA NITROGEN 20 MG/DL (7-18); CALCIUM LEVEL 8.9 MG/DL (8.5-10.1); CARBON DIOXIDE LEVEL 26 MEQ/L (21-32); CHLORIDE LEVEL 105 MEQ/L (98-107); CREATININE FOR GFR 0.88 MG/DL (0.55-1.30); GLOMERULAR FILTRATION RATE > 60.0 (>51); GLUCOSE, FASTING 175 MG/DL (70-100); PHOSPHORUS LEVEL 3.4 MG/DL (2.5-4.9); POTASSIUM SERUM 4.7 MEQ/L (3.5-5.1); SODIUM LEVEL 138 MEQ/L (136-145); TOTAL PROTEIN 6.7 GM/DL (6.4-8.2)
== END ==
LOC: M SHH 14:54
PROVIDERS: ATTEND Family Medicine
DX: K29.00 Acute gastritis without bleeding (principal)

== ENCOUNTER → 2019-12-13 | Outpatient (REF) | payer OTHER, MEDICAID ==
[2019-12-13 15:46] LABS: BASO # 0.1 10^3/uL (0.0-0.2); BASO % 2.4 % (0.0-1.0); EOS # 0.3 10^3/uL (0.0-0.5); EOS % 4.9 % (0.0-3.0); HEMATOCRIT 38.8 % (36.0-47.0); HEMOGLOBIN 11.8 g/dl (12.0-15.5); LYMPH % 38.7 % (24.0-44.0); MEAN CORPUSCULAR HEMOGLOBIN 28.3 pg (27.0-33.0); MEAN CORPUSCULAR HGB CONC 30.4 g/dl (32.0-36.5); MONO # 0.5 10^3/uL (0.0-0.8); MONO % 9.8 % (0.0-5.0); NEUTROPHILS # 2.2 10^3/uL (1.5-8.5); PLATELET COUNT, AUTOMATED 253 10^3/uL (150-450); RED BLOOD COUNT 4.17 10^6/uL (4.00-5.40); WHITE BLOOD COUNT 5.1 10^3/uL (4.0-10.0)
[2019-12-13 18:54] LABS: ALBUMIN 3.6 GM/DL (3.2-5.2); ALT/SGPT 233 U/L (12-78); BILIRUBIN,TOTAL 0.2 MG/DL (0.2-1.0); BLOOD UREA NITROGEN 17 MG/DL (7-18); CALCIUM LEVEL 9.3 MG/DL (8.5-10.1); CARBON DIOXIDE LEVEL 25 MEQ/L (21-32); CHLORIDE LEVEL 106 MEQ/L (98-107); CREATININE FOR GFR 0.98 MG/DL (0.55-1.30); GLOMERULAR FILTRATION RATE > 60.0 (>51); GLUCOSE, FASTING 169 MG/DL (70-100); LIPASE 109 U/L (73-393); POTASSIUM SERUM 4.6 MEQ/L (3.5-5.1); SODIUM LEVEL 138 MEQ/L (136-145); TOTAL PROTEIN 7.5 GM/DL (6.4-8.2)
== END ==
LOC: M SFHCPLAZ 13:41
PROVIDERS: ATTEND Family Medicine
DX: E10.65 Type 1 diabetes mellitus with hyperglycemia (principal)

== ENCOUNTER → 2019-12-20 | Outpatient (REF) | payer OTHER, MEDICAID ==
[2019-12-20 14:46] LABS: HEMATOCRIT 35.7 % (36.0-47.0); HEMOGLOBIN 10.6 g/dl (12.0-15.5); MEAN CORPUSCULAR HEMOGLOBIN 28.2 pg (27.0-33.0); MEAN CORPUSCULAR HGB CONC 29.7 g/dl (32.0-36.5); MEAN CORPUSCULAR VOLUME 94.9 fl (80.0-96.0); PLATELET COUNT, AUTOMATED 243 10^3/uL (150-450); RED BLOOD COUNT 3.76 10^6/uL (4.00-5.40); WHITE BLOOD COUNT 5.2 10^3/uL (4.0-10.0)
[2019-12-20 15:16] LABS: ALT/SGPT 108 U/L (12-78); BILIRUBIN,TOTAL 0.2 MG/DL (0.2-1.0); BLOOD UREA NITROGEN 19 MG/DL (7-18); CALCIUM LEVEL 8.8 MG/DL (8.5-10.1); CARBON DIOXIDE LEVEL 28 MEQ/L (21-32); CHLORIDE LEVEL 102 MEQ/L (98-107); CREATININE FOR GFR 0.86 MG/DL (0.55-1.30); GLOMERULAR FILTRATION RATE > 60.0 (>51); GLUCOSE, FASTING 194 MG/DL (70-100); MAGNESIUM LEVEL 2.1 MG/DL (1.8-2.4); PHOSPHORUS LEVEL 3.9 MG/DL (2.5-4.9); POTASSIUM SERUM 4.8 MEQ/L (3.5-5.1); SODIUM LEVEL 138 MEQ/L (136-145); TOTAL PROTEIN 6.5 GM/DL (6.4-8.2); TRIGLYCERIDES LEVEL 84 MG/DL (<150)
== END ==
LOC: M SHH 14:22
PROVIDERS: ATTEND Internal Medicine
DX: K29.00 Acute gastritis without bleeding (principal)

== ENCOUNTER → 2019-12-21 | Outpatient (CLI) | payer OTHER, MEDICAID ==
[~2019-12-21] MED LIST changes: +COLE625TAB PO; +LEVE1INJ5 SC; +LEVO500T3 PO; +LIDO5OIN19 EX; +LOMO2.5T PO; +PROAAER10 INH; +VARE05TA PO
== END ==
LOC: M LABSMTC 09:32
PROVIDERS: ATTEND Family Medicine
DX: Z20.828 Contact with and (suspected) exposure to other viral communicable diseases (principal)

== ENCOUNTER → 2019-12-24 | Outpatient (CLI) | payer OTHER, MEDICAID ==
[~2019-12-24] MED LIST changes: +LIDOCAINE 1% MDV 20ML VIAL As Ordered ONE
--- NOTE | 2019-12-24 15:21 | REP ---
PROCEDURE NAME: PICC LINE INSERTION W/SITERITE CLINICAL INFORMATION: ON PARENTERAL NUTRITION. COMPARISON: None. PROCEDURE DESCRIPTION: The procedure was performed by SARAH Cosby, under the direct supervision of Dr. Faith. The risks and benefits of the procedure were explained to the patient and an informed consent was obtained both verbally and written. Directly prior to the start of the procedure a formal time-out was completed in the procedure room. The right medial brachial vein was localized using ultrasound guidance. The skin was prepped and draped in sterile fashion. Two mL of 1% lidocaine 10 mg/mL was used as a local anesthetic. Using ultrasound guidance the right medial brachial vein was cannulated, and a 0.018 guidewire was inserted and advanced to the level of SVC using fluoroscopic guidance. The needle was removed and a 5.5 Czech dilator and peel-away sheath was inserted over the guidewire. A 5.5 Czech dual lumen catheter was cut to a length of 40 cm. The dilator was removed and the catheter was inserted over the guidewire with the tip ending at the level of the SVC. The peel-away sheath was removed and the catheter was flushed with heparinized saline as per hospital protocol. The catheter was affixed to the skin and a sterile dressing was applied. The patient tolerated the procedure well and there were no immediate complications. CONCLUSION: PICC line insertion into the right medial brachial vein. 0.1 minutes of fluoroscopy time was utilized for this procedure. Some fluoroscopic images are performed with last image hold technology. These images require no additional radiation. <Electronically signed by Magda Valentine > 12/24/19 [id number] <Electronically signed by Pavan Faith > 12/24/19 [id number]
== END ==
LOC: M IRPRO 11:24
PROVIDERS: ATTEND Family Medicine
DX: Z45.2 Encounter for adjustment and management of vascular access device (principal); Z78.9 Other specified health status; K90.0 Celiac disease; K31.84 Gastroparesis; E11.43 Type 2 diabetes mellitus with diabetic autonomic (poly)neuropathy; K76.0 Fatty (change of) liver, not elsewhere classified; F32.9 Major depressive disorder, single episode, unspecified; I10 Essential (primary) hypertension; Z88.8 Allergy status to other drugs, medicaments and biological substances
CPT/HCPCS: 36569; 76937; C1751; J1642; J1644

== ENCOUNTER → 2020-01-01 | Outpatient (CLI) | payer OTHER, MEDICAID ==
[~2020-01-01] MED LIST changes: -LIDOCAINE 1% MDV 20ML VIAL As Ordered ONE
--- NOTE | 2020-01-01 12:58 | REP ---
INDICATION: COUGH COMPARISON: 07/18/2019 TECHNIQUE: PA and lateral. FINDINGS: The mediastinum and cardiac silhouette are normal. Right-sided PICC line with tip in the SVC. The lung alanis are clear and without acute consolidation, effusion, or pneumothorax. The skeletal structures are intact and normal. IMPRESSION: No acute cardiopulmonary process. <Electronically signed by Shin Zarco > 01/01/20 0251
== END ==
LOC: M WUC 12:44
PROVIDERS: ATTEND Family Medicine
DX: R05 Cough (principal)

== ENCOUNTER 2020-01-03 16:56 | Emergency (ER) | payer OTHER, MEDICAID ==
[~2020-01-03] VITALS: Ht 162.6 cm; Wt 69.1 kg
[2020-01-03] MEDS ORDERED: PANTOPRAZOLE 40MG VIAL (C9113 PER 1) IV ONE (17:30)
[2020-01-03] MEDS ORDERED: METOCLOPRAMIDE INJ 10MG/2ML VIAL (J2765 PER 1) IV ONE (17:30)
--- NOTE | 2020-01-03 17:42 | REP ---
INDICATION: Abdominal Pain COMPARISON: None. TECHNIQUE: Upright view of the chest with supine and upright views of the abdomen and pelvis. FINDINGS: Frontal upright view of the chest demonstrates no acute cardiopulmonary process or free air below the diaphragm to suspect pneumoperitoneum. Right-sided PICC line with tip in the SVC. Supine and upright views of the abdomen and pelvis demonstrate nonspecific bowel gas pattern without obstruction or perforation. Prior cholecystectomy noted. No organomegaly. No abnormal calcifications. Skeletal structures normal for age. IMPRESSION: Nonspecific bowel gas pattern. <Electronically signed by Shin Zarco > 01/03/20 [id number]
[2020-01-03 18:04] LABS: BASO # 0.1 10^3/uL (0.0-0.2); EOS # 0.4 10^3/uL (0.0-0.5); EOS % 5.5 % (0.0-3.0); HEMATOCRIT 36.5 % (36.0-47.0); LYMPH # 2.4 10^3/uL (1.5-5.0); LYMPH % 33.7 % (24.0-44.0); MEAN CORPUSCULAR HEMOGLOBIN 28.1 pg (27.0-33.0); MEAN CORPUSCULAR HGB CONC 31.2 g/dl (32.0-36.5); MEAN CORPUSCULAR VOLUME 89.9 fl (80.0-96.0); MONO # 0.5 10^3/uL (0.0-0.8); MONO % 6.6 % (0.0-5.0); NEUTROPHILS # 3.7 10^3/uL (1.5-8.5); NEUTROPHILS % 51.8 % (36.0-66.0); RED BLOOD COUNT 4.06 10^6/uL (4.00-5.40); WHITE BLOOD COUNT 7.1 10^3/uL (4.0-10.0)
[2020-01-03 18:20] LABS: HEMOGLOBIN 11.4 g/dl (12.0-15.5); PLATELET COUNT, AUTOMATED 346 10^3/uL (150-450)
[2020-01-03 18:27] LABS: INR 0.98; PROTHROMBIN TIME 13.2 SECONDS (12.5-14.3)
[2020-01-03 18:33] LABS: ALBUMIN 3.3 GM/DL (3.2-5.2); ALT/SGPT 56 U/L (12-78); BILIRUBIN,DIRECT < 0.1 MG/DL (0.0-0.2); BILIRUBIN,TOTAL 0.2 MG/DL (0.2-1.0); BLOOD UREA NITROGEN 28 MG/DL (7-18); CALCIUM LEVEL 9.1 MG/DL (8.5-10.1); CARBON DIOXIDE LEVEL 26 MEQ/L (21-32); CHLORIDE LEVEL 107 MEQ/L (98-107); CK-MB VALUE MASS 1.7 NG/ML (<3.6); CPK CREATINE PHOSPHOKINASE 84 U/L (26-192); CREATININE FOR GFR 0.98 MG/DL (0.55-1.30); GLOMERULAR FILTRATION RATE > 60.0 (>51); GLUCOSE, FASTING 227 MG/DL (70-100); LIPASE 157 U/L (73-393); MB/CK RELATIVE INDEX 2.02 (< OR =4); POTASSIUM SERUM 3.7 MEQ/L (3.5-5.1); SODIUM LEVEL 139 MEQ/L (136-145); TOTAL PROTEIN 7.1 GM/DL (6.4-8.2); TROPONIN I < 0.02 NG/ML (< 0.10)
[2020-01-03 19:34] VITALS: BP 144/76
--- NOTE | 2020-01-03 22:14 | ECGEPIP ---
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
== END 2020-01-03 19:38 | disposition home or self-care (01) ==
LOC: M ED 16:56
DX: R19.7 Diarrhea, unspecified (principal); Z90.49 Acquired absence of other specified parts of digestive tract; K29.00 Acute gastritis without bleeding; R50.9 Fever, unspecified; I45.19 Other right bundle-branch block; E11.9 Type 2 diabetes mellitus without complications; G43.909 Migraine, unspecified, not intractable, without status migrainosus; Z79.899 Other long term (current) drug therapy

== ENCOUNTER → 2020-01-03 | Outpatient (REF) | payer OTHER, MEDICAID ==
[2020-01-03 15:10] LABS: HEMATOCRIT 21.9 % (36.0-47.0); HEMOGLOBIN 6.7 g/dl (12.0-15.5); MEAN CORPUSCULAR HGB CONC 30.6 g/dl (32.0-36.5); MEAN CORPUSCULAR VOLUME 91.6 fl (80.0-96.0); PLATELET COUNT, AUTOMATED 230 10^3/uL (150-450); RED BLOOD COUNT 2.39 10^6/uL (4.00-5.40); WHITE BLOOD COUNT 7.6 10^3/uL (4.0-10.0)
[2020-01-03 15:31] LABS: BILIRUBIN,TOTAL 0.2 MG/DL (0.2-1.0); CALCIUM LEVEL 8.3 MG/DL (8.5-10.1); CREATININE FOR GFR 3.02 MG/DL (0.55-1.30); GLOMERULAR FILTRATION RATE 17.1 (>51); MAGNESIUM LEVEL 2.1 MG/DL (1.8-2.4); PHOSPHORUS LEVEL 4.1 MG/DL (2.5-4.9); POTASSIUM SERUM 5.2 MEQ/L (3.5-5.1); TOTAL PROTEIN 6.2 GM/DL (6.4-8.2)
== END ==
LOC: M SHH 14:37
PROVIDERS: ATTEND Internal Medicine
DX: K29.00 Acute gastritis without bleeding (principal)

== ENCOUNTER → 2020-01-03 | Outpatient (CLI) | payer OTHER, MEDICAID ==
--- NOTE | 2020-01-03 14:09 | REP ---
INDICATION: DIARRHEA. COMPARISON: 06/22/2019. TECHNIQUE: Real-time sonographic evaluation of ABDOMEN performed. FINDINGS: Patient has had a prior cholecystectomy.. There is no intrahepatic or extrahepatic biliary dilatation, common bile duct measures 9 mm in maximum diameter. The liver demonstrates homogeneous echotexture with no gross mass. The pancreas demonstrates homogeneous echotexture with no gross mass. Spleen is normal in size with no intrinsic abnormality, measuring 9.6 cm in length. There is no evidence of hydronephrosis, cyst, mass, or calculus in either kidney. The right kidney measures 11.0 x 5.2 x 3.9 cm. Left renal dimensions are 10.3 x 4.9 x 4.7 cm. The abdominal aorta is normal in caliber with no aneurysm. No free fluid is seen. IMPRESSION: Prior cholecystectomy. Expected mild prominence of the common bile duct. Otherwise negative abdominal ultrasound with no change since prior study. <Electronically signed by Ahsan Manuel > 01/03/20 [id number]
== END ==
LOC: M RAD 06:26
PROVIDERS: ATTEND Family Medicine
DX: R19.7 Diarrhea, unspecified (principal); Z90.49 Acquired absence of other specified parts of digestive tract

== ENCOUNTER → 2020-01-14 | Outpatient (CLI) | payer OTHER, MEDICAID ==
[~2020-01-14] MED LIST changes: +GASTROGRAFIN SOLUTION 30ML (Q9963) As Ordered ONE; +ISOVUE-370 76% 100ML VIAL As Ordered ONE; -MONT10TA4 PO; +MONT5TAB2 PO
--- NOTE | 2020-01-14 15:51 | REP ---
INDICATION: CHRONIC DIARRHEA. COMPARISON: 08/20/2019 noncontrast enhanced examination 06/18/2019 and 08/12/2018 contrast enhanced examination is TECHNIQUE: 100 cc Isovue 370 and oral bowel preparatory contrast administration. FINDINGS: The lung bases are clear and essentially unchanged. There are no pleural or pericardial effusions. There are no enhancing hepatic lesions. The spleen, pancreas, adrenal glands, and kidneys are within normal limits and essentially unchanged. The abdominal aorta and para-aortic regions are within normal limits the centrally unchanged. There are left upper quadrant postoperative changes status quo. There is scattered mild thickening of the small bowel shrestha. There is no intestinal obstruction. There is no free fluid or free air. There is no evidence of a mass or adenopathy. Bone window technique to the examination shows the osseous structures to be stable and intact. IMPRESSION: Mild small bowel wall thickening. Etiology uncertain. Possible viral or bacterial gastroenteritis. There is no intestinal obstruction or other evidence of significant disease. Findings as described above. <Electronically signed by Klever Carrasco > 01/14/20 [id number]
== END ==
LOC: M RAD 13:38
PROVIDERS: ATTEND Family Medicine
DX: K52.9 Noninfective gastroenteritis and colitis, unspecified (principal)
CPT/HCPCS: 74177; Q9963; Q9967

== ENCOUNTER → 2020-01-17 | Outpatient (REF) | payer OTHER, MEDICAID ==
[~2020-01-17] MED LIST changes: -GASTROGRAFIN SOLUTION 30ML (Q9963) As Ordered ONE; -ISOVUE-370 76% 100ML VIAL As Ordered ONE
[2020-01-17 12:14] LABS: HEMATOCRIT 41.5 % (36.0-47.0); HEMOGLOBIN 12.9 g/dl (12.0-15.5); MEAN CORPUSCULAR HEMOGLOBIN 28.9 pg (27.0-33.0); MEAN CORPUSCULAR HGB CONC 31.1 g/dl (32.0-36.5); PLATELET COUNT, AUTOMATED 264 10^3/uL (150-450); RED BLOOD COUNT 4.46 10^6/uL (4.00-5.40); WHITE BLOOD COUNT 5.2 10^3/uL (4.0-10.0)
[2020-01-17 12:32] LABS: ALBUMIN 3.8 GM/DL (3.2-5.2); ALT/SGPT 70 U/L (12-78); BILIRUBIN,TOTAL 0.3 MG/DL (0.2-1.0); BLOOD UREA NITROGEN 33 MG/DL (7-18); CALCIUM LEVEL 9.2 MG/DL (8.5-10.1); CARBON DIOXIDE LEVEL 28 MEQ/L (21-32); CHLORIDE LEVEL 106 MEQ/L (98-107); CREATININE FOR GFR 0.96 MG/DL (0.55-1.30); GLOMERULAR FILTRATION RATE > 60.0 (>51); GLUCOSE, FASTING 103 MG/DL (70-100); MAGNESIUM LEVEL 2.3 MG/DL (1.8-2.4); PHOSPHORUS LEVEL 3.5 MG/DL (2.5-4.9); POTASSIUM SERUM 4.7 MEQ/L (3.5-5.1); SODIUM LEVEL 138 MEQ/L (136-145); TOTAL PROTEIN 7.7 GM/DL (6.4-8.2); TRIGLYCERIDES LEVEL 44 MG/DL (<150)
== END ==
LOC: M SHH 11:09
PROVIDERS: ATTEND Family Medicine
DX: K29.00 Acute gastritis without bleeding (principal)

== ENCOUNTER → 2020-01-31 | Outpatient (CLI) | payer OTHER, MEDICAID ==
[2020-01-31 10:28] LABS: HEMATOCRIT 40.2 % (36.0-47.0); HEMOGLOBIN 12.6 g/dl (12.0-15.5); MEAN CORPUSCULAR HEMOGLOBIN 28.8 pg (27.0-33.0); MEAN CORPUSCULAR HGB CONC 31.3 g/dl (32.0-36.5); MEAN CORPUSCULAR VOLUME 91.8 fl (80.0-96.0); PLATELET COUNT, AUTOMATED 260 10^3/uL (150-450); RED BLOOD COUNT 4.38 10^6/uL (4.00-5.40); WHITE BLOOD COUNT 5.4 10^3/uL (4.0-10.0)
[2020-01-31 10:51] LABS: ALBUMIN 3.4 GM/DL (3.2-5.2); ALT/SGPT 87 U/L (12-78); BILIRUBIN,TOTAL 0.1 MG/DL (0.2-1.0); BLOOD UREA NITROGEN 26 MG/DL (7-18); CALCIUM LEVEL 8.9 MG/DL (8.5-10.1); CARBON DIOXIDE LEVEL 31 MEQ/L (21-32); CHLORIDE LEVEL 105 MEQ/L (98-107); CREATININE FOR GFR 0.86 MG/DL (0.55-1.30); GLOMERULAR FILTRATION RATE > 60.0 (>51); GLUCOSE, FASTING 98 MG/DL (70-100); MAGNESIUM LEVEL 2.3 MG/DL (1.8-2.4); PHOSPHORUS LEVEL 3.9 MG/DL (2.5-4.9); POTASSIUM SERUM 4.4 MEQ/L (3.5-5.1); SODIUM LEVEL 141 MEQ/L (136-145)
== END ==
LOC: M LAB 09:48
PROVIDERS: ATTEND Internal Medicine
DX: K29.00 Acute gastritis without bleeding (principal)

== ENCOUNTER → 2020-02-01 | Outpatient (CLI) | payer OTHER, MEDICAID ==
[~2020-02-01] MED LIST changes: +LIDOCAINE 1% MDV 20ML VIAL As Ordered ONE
--- NOTE | 2020-02-01 10:07 | REP ---
INDICATION: ENCOUNTER FOR SCREENING FOR LUNG CA CT FIRST COMPARISON: None. TECHNIQUE: Axial noncontrast images from the thoracic inlet to the upper abdomen using low-dose lung screening technique (LDCT). FINDINGS: Bilateral lung alanis are relatively well aerated. There is a 6 mm part solid noncalcified density in the right upper lobe (image 38). No further consolidation or suspicious nodule/mass lesion is appreciated. No effusion. No pneumothorax. Tracheobronchial tree is patent. IMPRESSION: Lung-RADS category 3. No prior examinations are available for comparison. Management recommendations include 6 month low-dose CT follow-up evaluation. <Electronically signed by Shin Zarco > 02/01/20 [id number]
[2020-02-01 11:06] VITALS: BP 143/78
--- NOTE | 2020-02-01 16:53 | REP ---
PROCEDURE NAME: PICC LINE INSERTION W/SITERITE CLINICAL INFORMATION: MALNUTRITION. COMPARISON: None. PROCEDURE DESCRIPTION: The procedure was performed by SARAH Cosby, under the direct supervision of Dr. Manuel. The risks and benefits of the procedure were explained to the patient and an informed consent was obtained both verbally and written. Directly prior to the start of the procedure a formal time-out was completed in the procedure room. The left basilic vein was localized using ultrasound guidance. The skin was prepped and draped in sterile fashion. One mL of 1% lidocaine 10 mg/mL was used as a local anesthetic. Using ultrasound guidance the left basilic vein was cannulated, and a 0.018 guidewire was inserted and advanced to the level of SVC using fluoroscopic guidance. The needle was removed and a 5.5 Italian dilator and peel-away sheath was inserted over the guidewire. A 5.5 Italian dual lumen catheter was cut to a length of 4 2 cm. The dilator was removed and the catheter was inserted over the guidewire with the tip ending at the level of the SVC. The peel-away sheath was removed and the catheter was flushed with heparinized saline as per hospital protocol. The catheter was affixed to the skin and a sterile dressing was applied. The patient tolerated the procedure well and there were no immediate complications. CONCLUSION: PICC line insertion into the left basilic vein. 0.1 minutes of fluoroscopy time was utilized for this procedure. Some fluoroscopic images are performed with last image hold technology. These images require no additional radiation. <Electronically signed by Magda Valentine > 02/01/20 1120 <Electronically signed by Ahsan Manuel > 02/01/20 [id number]
== END ==
LOC: M IRPRO 09:04
PROVIDERS: ATTEND Family Medicine
DX: E46 Unspecified protein-calorie malnutrition (principal); Z12.2 Encounter for screening for malignant neoplasm of respiratory organs
CPT/HCPCS: 36573; C1751; G0297; J1642; J1644

== ENCOUNTER → 2020-02-01 | Outpatient (CLI) | payer OTHER, MEDICAID ==
[~2020-02-01] MED LIST changes: -LIDOCAINE 1% MDV 20ML VIAL As Ordered ONE
== END ==
LOC: M RAD 09:00
PROVIDERS: ATTEND Family Medicine
DX: Z12.2 Encounter for screening for malignant neoplasm of respiratory organs (principal)

== ENCOUNTER → 2020-02-07 | Outpatient (REF) | payer OTHER, MEDICAID ==
[2020-02-07 17:35] LABS: HEMOGLOBIN 12.3 g/dl (12.0-15.5); MEAN CORPUSCULAR HEMOGLOBIN 28.9 pg (27.0-33.0); MEAN CORPUSCULAR HGB CONC 31.5 g/dl (32.0-36.5); MEAN CORPUSCULAR VOLUME 91.5 fl (80.0-96.0); PLATELET COUNT, AUTOMATED 263 10^3/uL (150-450); RED BLOOD COUNT 4.26 10^6/uL (4.00-5.40); WHITE BLOOD COUNT 4.9 10^3/uL (4.0-10.0)
[2020-02-07 18:08] LABS: ALBUMIN 3.3 GM/DL (3.2-5.2); ALT/SGPT 86 U/L (12-78); BILIRUBIN,TOTAL 0.2 MG/DL (0.2-1.0); BLOOD UREA NITROGEN 25 MG/DL (7-18); CALCIUM LEVEL 8.8 MG/DL (8.5-10.1); CARBON DIOXIDE LEVEL 29 MEQ/L (21-32); CHLORIDE LEVEL 103 MEQ/L (98-107); GLOMERULAR FILTRATION RATE > 60.0 (>51); GLUCOSE, FASTING 189 MG/DL (70-100); MAGNESIUM LEVEL 2.2 MG/DL (1.8-2.4); PHOSPHORUS LEVEL 4.6 MG/DL (2.5-4.9); POTASSIUM SERUM 5.4 MEQ/L (3.5-5.1); SODIUM LEVEL 137 MEQ/L (136-145)
== END ==
LOC: M LAB REF 17:15
PROVIDERS: ATTEND Family Medicine
DX: K29.00 Acute gastritis without bleeding (principal)

== ENCOUNTER → 2020-02-14 | Outpatient (REF) | payer OTHER, MEDICAID ==
[2020-02-14 16:28] LABS: HEMATOCRIT 38.9 % (36.0-47.0); HEMOGLOBIN 12.3 g/dl (12.0-15.5); MEAN CORPUSCULAR HEMOGLOBIN 28.7 pg (27.0-33.0); MEAN CORPUSCULAR HGB CONC 31.6 g/dl (32.0-36.5); MEAN CORPUSCULAR VOLUME 90.7 fl (80.0-96.0); PLATELET COUNT, AUTOMATED 248 10^3/uL (150-450); RED BLOOD COUNT 4.29 10^6/uL (4.00-5.40); WHITE BLOOD COUNT 5.7 10^3/uL (4.0-10.0)
[2020-02-14 16:50] LABS: ALBUMIN 3.4 GM/DL (3.2-5.2); ALT/SGPT 74 U/L (12-78); BILIRUBIN,TOTAL 0.2 MG/DL (0.2-1.0); BLOOD UREA NITROGEN 36 MG/DL (7-18); CALCIUM LEVEL 8.6 MG/DL (8.5-10.1); CARBON DIOXIDE LEVEL 26 MEQ/L (21-32); CHLORIDE LEVEL 107 MEQ/L (98-107); CREATININE FOR GFR 0.87 MG/DL (0.55-1.30); GLOMERULAR FILTRATION RATE > 60.0 (>51); GLUCOSE, FASTING 182 MG/DL (70-100); MAGNESIUM LEVEL 2.2 MG/DL (1.8-2.4); PHOSPHORUS LEVEL 4.3 MG/DL (2.5-4.9); POTASSIUM SERUM 4.6 MEQ/L (3.5-5.1); SODIUM LEVEL 138 MEQ/L (136-145); TOTAL PROTEIN 6.8 GM/DL (6.4-8.2); TRIGLYCERIDES LEVEL 76 MG/DL (<150)
== END ==
LOC: M LAB REF 15:18
PROVIDERS: ATTEND Family Medicine
DX: K29.00 Acute gastritis without bleeding (principal); Z79.899 Other long term (current) drug therapy

== ENCOUNTER 2020-02-18 13:25 | Emergency (ER) | payer OTHER, MEDICAID ==
[~2020-02-18] VITALS: Ht 162.6 cm; Wt 65.9 kg
[~2020-02-18 13:25] MED LIST changes: -AMIT25TA PO; +AMIT25TA17 PO; -CLIN150C14 PO; +CLIN150C15 PO; +GABA-282 PO; -GABA-843 PO; +LISI10TA22 PO; +METH-1164 PO; -METH1TAB40 PO; +MONT10TA10 PO; -MONT5TAB2 PO
[2020-02-18] MEDS ORDERED: LORazepam 2 MG/ML VIAL IV STA (13:42)
--- NOTE | 2020-02-18 14:16 | REP ---
INDICATION: DYSPNEA/COUGH COMPARISON: 01/01/2020 TECHNIQUE: Portable AP view of the chest FINDINGS: The mediastinum and cardiac silhouette are stable and within normal limits for portable technique. The lung alanis are clear without acute consolidation, effusion, or pneumothorax. Skeletal structures are intact. IMPRESSION: No acute cardiopulmonary process appreciated. <Electronically signed by Shin Zarco > 02/18/20 1073
[2020-02-18 15:34] LABS: BASO # 0.1 10^3/uL (0.0-0.2); BASO % 0.8 % (0.0-1.0); EOS # 0.1 10^3/uL (0.0-0.5); EOS % 0.6 % (0.0-3.0); HEMATOCRIT 37.4 % (36.0-47.0); HEMOGLOBIN 11.7 g/dl (12.0-15.5); LYMPH # 0.8 10^3/uL (1.5-5.0); LYMPH % 8.7 % (24.0-44.0); MEAN CORPUSCULAR HEMOGLOBIN 28.5 pg (27.0-33.0); MEAN CORPUSCULAR HGB CONC 31.3 g/dl (32.0-36.5); MONO # 0.4 10^3/uL (0.0-0.8); MONO % 3.7 % (0.0-5.0); NEUTROPHILS # 8.1 10^3/uL (1.5-8.5); NEUTROPHILS % 85.7 % (36.0-66.0); PLATELET COUNT, AUTOMATED 208 10^3/uL (150-450); RED BLOOD COUNT 4.11 10^6/uL (4.00-5.40); WHITE BLOOD COUNT 9.5 10^3/uL (4.0-10.0)
[2020-02-18 15:39] LABS: VENOUS BASE EXCESS -4.2 (-2.0-2.0); VENOUS HCO3 17.6 MEQ/L (23.0-27.0); VENOUS O2 SATURATION 99.4 % (60.0-80.0); VENOUS PARTIAL PRESSURE CO2 24.2 mmHg (38.0-50.0); VENOUS PARTIAL PRESSURE O2 151.4 mmHg (30.0-50.0); VENOUS STANDARD HCO3 21.1 MEQ/L; VENOUS TOTAL CO2 18.4 MEQ/L (24.0-28.0)
[2020-02-18 16:10] LABS: ALBUMIN 3.4 GM/DL (3.2-5.2); ALT/SGPT 60 U/L (12-78); BILIRUBIN,DIRECT < 0.1 MG/DL (0.0-0.2); BILIRUBIN,TOTAL 0.2 MG/DL (0.2-1.0); BLOOD UREA NITROGEN 20 MG/DL (7-18); CALCIUM LEVEL 8.2 MG/DL (8.5-10.1); CARBON DIOXIDE LEVEL 22 MEQ/L (21-32); CHLORIDE LEVEL 108 MEQ/L (98-107); CK-MB VALUE MASS 2.5 NG/ML (<3.6); CPK CREATINE PHOSPHOKINASE 113 U/L (26-192); CREATININE FOR GFR 0.51 MG/DL (0.55-1.30); GLOMERULAR FILTRATION RATE > 60.0 (>51); GLUCOSE, FASTING 247 MG/DL (70-100); MB/CK RELATIVE INDEX 2.21 (< OR =4); NT-PRO BNP 27 PG/ML (<125); POTASSIUM SERUM 4.1 MEQ/L (3.5-5.1); SODIUM LEVEL 137 MEQ/L (136-145); THYROID STIMULATING HORMONE 0.745 uIU/ML (0.358-3.740); THYROXINE (T4) 6.9 UG/DL (4.5-12.0); TOTAL PROTEIN 7.1 GM/DL (6.4-8.2); TROPONIN I < 0.02 NG/ML (< 0.10)
[2020-02-18] MEDS ORDERED: ACETAMINOPHEN 325 MG TAB PO ONE (16:15)
[2020-02-18 16:31] VITALS: BP 139/69
--- NOTE | 2020-02-18 21:45 | ECGEPIP ---
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
== END 2020-02-18 16:44 | disposition home or self-care (01) ==
LOC: EDBD 13:25 → M ED 13:25
DX: R11.10 Vomiting, unspecified (principal); K21.9 Gastro-esophageal reflux disease without esophagitis; E10.9 Type 1 diabetes mellitus without complications; E78.5 Hyperlipidemia, unspecified; J45.909 Unspecified asthma, uncomplicated; K90.0 Celiac disease; G45.9 Transient cerebral ischemic attack, unspecified; G47.33 Obstructive sleep apnea (adult) (pediatric); Z79.51 Long term (current) use of inhaled steroids; Z79.899 Other long term (current) drug therapy; Z79.891 Long term (current) use of opiate analgesic; Z87.891 Personal history of nicotine dependence; Z86.73 Personal history of transient ischemic attack (TIA), and cerebral infarction without residual deficits; Z88.8 Allergy status to other drugs, medicaments and biological substances; Z91.018 Allergy to other foods; Z91.048 Other nonmedicinal substance allergy status
CPT/HCPCS: 36415; 71045; 80053; 82550; 82553; 82803; 83605; 83880; 84436; 84443; 84484; 85025; 87040; 93005; 93041; 96374; 99284; J2060

== ENCOUNTER → 2020-02-21 | Outpatient (REF) | payer OTHER, MEDICAID ==
[~2020-02-21] MED LIST changes: -LISI10TA22 PO; -METH-1164 PO; +METH1TAB40 PO; -MONT10TA10 PO; +MONT5TAB2 PO
[2020-02-21 11:59] LABS: HEMATOCRIT 38.8 % (36.0-47.0); HEMOGLOBIN 12.1 g/dl (12.0-15.5); MEAN CORPUSCULAR HEMOGLOBIN 28.7 pg (27.0-33.0); MEAN CORPUSCULAR HGB CONC 31.2 g/dl (32.0-36.5); MEAN CORPUSCULAR VOLUME 92.2 fl (80.0-96.0); PLATELET COUNT, AUTOMATED 234 10^3/uL (150-450); RED BLOOD COUNT 4.21 10^6/uL (4.00-5.40); WHITE BLOOD COUNT 10.5 10^3/uL (4.0-10.0)
[2020-02-21 12:32] LABS: ALBUMIN 3.5 GM/DL (3.2-5.2); ALT/SGPT 69 U/L (12-78); BILIRUBIN,TOTAL 0.2 MG/DL (0.2-1.0); BLOOD UREA NITROGEN 18 MG/DL (7-18); CALCIUM LEVEL 9.1 MG/DL (8.5-10.1); CARBON DIOXIDE LEVEL 26 MEQ/L (21-32); CHLORIDE LEVEL 104 MEQ/L (98-107); CREATININE FOR GFR 0.92 MG/DL (0.55-1.30); GLOMERULAR FILTRATION RATE > 60.0 (>51); GLUCOSE, FASTING 170 MG/DL (70-100); MAGNESIUM LEVEL 1.8 MG/DL (1.8-2.4); PHOSPHORUS LEVEL 3.6 MG/DL (2.5-4.9); POTASSIUM SERUM 4.3 MEQ/L (3.5-5.1); SODIUM LEVEL 140 MEQ/L (136-145); TOTAL PROTEIN 6.7 GM/DL (6.4-8.2)
== END ==
LOC: M LAB REF 10:43
PROVIDERS: ATTEND Internal Medicine
DX: K29.00 Acute gastritis without bleeding (principal)

== ENCOUNTER → 2020-02-28 | Outpatient (REF) | payer MEDICAID ==
[~2020-02-28] MED LIST changes: +LISI10TA22 PO; +METH-1164 PO; -METH1TAB40 PO; +MONT10TA10 PO; -MONT5TAB2 PO
== END ==
LOC: M SHH 12:23
PROVIDERS: ATTEND Internal Medicine
DX: K29.00 Acute gastritis without bleeding (principal)

== ENCOUNTER → 2020-03-06 | Outpatient (REF) | payer MEDICARE, MEDICAID ==
[2020-03-06 14:00] LABS: HEMATOCRIT 36.9 % (36.0-47.0); HEMOGLOBIN 11.3 g/dl (12.0-15.5); MEAN CORPUSCULAR HEMOGLOBIN 28.2 pg (27.0-33.0); MEAN CORPUSCULAR HGB CONC 30.6 g/dl (32.0-36.5); PLATELET COUNT, AUTOMATED 307 10^3/uL (150-450); RED BLOOD COUNT 4.01 10^6/uL (4.00-5.40); WHITE BLOOD COUNT 9.5 10^3/uL (4.0-10.0)
[2020-03-06 14:46] LABS: ALBUMIN 3.2 GM/DL (3.2-5.2); ALT/SGPT 75 U/L (12-78); BILIRUBIN,TOTAL 0.1 MG/DL (0.2-1.0); BLOOD UREA NITROGEN 25 MG/DL (7-18); CARBON DIOXIDE LEVEL 28 MEQ/L (21-32); CHLORIDE LEVEL 102 MEQ/L (98-107); CREATININE FOR GFR 0.93 MG/DL (0.55-1.30); GLOMERULAR FILTRATION RATE > 60.0 (>51); GLUCOSE, FASTING 160 MG/DL (70-100); PHOSPHORUS LEVEL 3.3 MG/DL (2.5-4.9); POTASSIUM SERUM 4.6 MEQ/L (3.5-5.1); SODIUM LEVEL 139 MEQ/L (136-145); TOTAL PROTEIN 6.7 GM/DL (6.4-8.2)
== END ==
LOC: M LAB REF 13:22
PROVIDERS: ATTEND Internal Medicine
DX: K29.00 Acute gastritis without bleeding (principal)

== ENCOUNTER → 2020-03-13 | Outpatient (REF) | payer MEDICARE, MEDICAID ==
[2020-03-13 13:39] LABS: HEMATOCRIT 38.1 % (36.0-47.0); HEMOGLOBIN 11.8 g/dl (12.0-15.5); MEAN CORPUSCULAR HEMOGLOBIN 28.1 pg (27.0-33.0); MEAN CORPUSCULAR VOLUME 90.7 fl (80.0-96.0); PLATELET COUNT, AUTOMATED 313 10^3/uL (150-450); WHITE BLOOD COUNT 5.8 10^3/uL (4.0-10.0)
[2020-03-13 14:16] LABS: ALBUMIN 3.3 GM/DL (3.2-5.2); ALT/SGPT 67 U/L (12-78); BILIRUBIN,TOTAL 0.3 MG/DL (0.2-1.0); BLOOD UREA NITROGEN 23 MG/DL (7-18); CALCIUM LEVEL 8.9 MG/DL (8.5-10.1); CARBON DIOXIDE LEVEL 29 MEQ/L (21-32); CHLORIDE LEVEL 105 MEQ/L (98-107); CREATININE FOR GFR 0.86 MG/DL (0.55-1.30); GLOMERULAR FILTRATION RATE > 60.0 (>51); GLUCOSE, FASTING 65 MG/DL (70-100); MAGNESIUM LEVEL 1.8 MG/DL (1.8-2.4); PHOSPHORUS LEVEL 4.1 MG/DL (2.5-4.9); POTASSIUM SERUM 4.9 MEQ/L (3.5-5.1); SODIUM LEVEL 138 MEQ/L (136-145); TRIGLYCERIDES LEVEL 73 MG/DL (<150)
== END ==
LOC: M SHH 13:17
PROVIDERS: ATTEND Internal Medicine
DX: K29.00 Acute gastritis without bleeding (principal)

== ENCOUNTER → 2020-03-15 | Outpatient (CLI) | payer MEDICARE, MEDICAID ==
[~2020-03-15] MED LIST changes: +ISOVUE-300 61% 50ML VIAL As Ordered ONE; +LIDOCAINE 1% MDV 20ML VIAL As Ordered ONE; -LISI10TA22 PO; -METH-1164 PO; +METH1TAB40 PO; -MONT10TA10 PO; +MONT5TAB2 PO
[2020-03-15 14:10] VITALS: BP 167/78
--- NOTE | 2020-03-16 08:08 | REP ---
PROCEDURE NAME: PICC LINE INSERTION W/SITERITE CLINICAL INFORMATION: UNSPECIFIED PROTEIN-CALORIE MALNUTRITION. COMPARISON: None. PROCEDURE DESCRIPTION: The procedure was performed by SARAH Cosby, under the direct supervision of Dr. Faith. The risks and benefits of the procedure were explained to the patient and an informed consent was obtained both verbally and written. Directly prior to the start of the procedure a formal time-out was completed in the procedure room. The right medial brachial vein was localized using ultrasound guidance. The skin was prepped and draped in sterile fashion. Two mL of 1% lidocaine 10 mg/mL was used as a local anesthetic. Using ultrasound guidance the right medial brachial vein was cannulated, and a 0.018 guidewire was inserted and advanced to the level of SVC using fluoroscopic guidance. The needle was removed and a 5.5 Czech dilator and peel-away sheath was inserted over the guidewire. A 5.5 Czech dual lumen catheter was cut to a length of 35 cm. There was some difficulty getting the PICC line and wire in place, approximately 9 mL of a 50/50 solution containing 80 saline and Isovue-300 was injected to evaluate for stenosis. No stenosis was visualized and afterwards the wire progressed smoothly into place. The dilator was removed and the catheter was inserted over the guidewire with the tip ending at the level of the SVC. The peel-away sheath was removed and the catheter was flushed with heparinized saline as per hospital protocol. The catheter was affixed to the skin and a sterile dressing was applied. The patient tolerated the procedure well and there were no immediate complications. CONCLUSION: PICC line insertion into the right medial brachial vein. 0.9 minutes of fluoroscopy time was utilized for this procedure. Some fluoroscopic images are performed with last image hold technology. These images require no additional radiation. <Electronically signed by Magda Valentine > 03/15/20 1656 <Electronically signed by Pavan Faith > 03/16/20 [id number]
== END ==
LOC: M IRPRO 11:58
PROVIDERS: ATTEND Family Medicine
DX: E46 Unspecified protein-calorie malnutrition (principal); K31.84 Gastroparesis; Z78.9 Other specified health status
CPT/HCPCS: 36571; 76937; C1751; J1642; J1644; Q9967

== ENCOUNTER → 2020-03-20 | Outpatient (REF) | payer MEDICARE, MEDICAID ==
[~2020-03-20] MED LIST changes: -ISOVUE-300 61% 50ML VIAL As Ordered ONE; -LIDOCAINE 1% MDV 20ML VIAL As Ordered ONE; +LISI10TA22 PO; +METH-1164 PO; -METH1TAB40 PO; +MONT10TA10 PO; -MONT5TAB2 PO
[2020-03-20 16:11] LABS: HEMATOCRIT 39.3 % (36.0-47.0); HEMOGLOBIN 12.1 g/dl (12.0-15.5); MEAN CORPUSCULAR HEMOGLOBIN 28.9 pg (27.0-33.0); MEAN CORPUSCULAR HGB CONC 30.8 g/dl (32.0-36.5); PLATELET COUNT, AUTOMATED 244 10^3/uL (150-450); RED BLOOD COUNT 4.18 10^6/uL (4.00-5.40); WHITE BLOOD COUNT 7.6 10^3/uL (4.0-10.0)
[2020-03-20 16:53] LABS: ALBUMIN 3.4 GM/DL (3.2-5.2); ALT/SGPT 95 U/L (12-78); BILIRUBIN,TOTAL 0.2 MG/DL (0.2-1.0); BLOOD UREA NITROGEN 20 MG/DL (7-18); CALCIUM LEVEL 9.2 MG/DL (8.5-10.1); CARBON DIOXIDE LEVEL 28 MEQ/L (21-32); CHLORIDE LEVEL 105 MEQ/L (98-107); CREATININE FOR GFR 0.87 MG/DL (0.55-1.30); GLOMERULAR FILTRATION RATE > 60.0 (>51); GLUCOSE, FASTING 42 MG/DL (70-100); MAGNESIUM LEVEL 1.9 MG/DL (1.8-2.4); PHOSPHORUS LEVEL 2.6 MG/DL (2.5-4.9); POTASSIUM SERUM 4.3 MEQ/L (3.5-5.1); SODIUM LEVEL 139 MEQ/L (136-145); TOTAL PROTEIN 6.9 GM/DL (6.4-8.2)
== END ==
LOC: M SHH 13:34
PROVIDERS: ATTEND Internal Medicine
DX: K29.00 Acute gastritis without bleeding (principal)

== ENCOUNTER 2020-04-08 11:25 | Emergency (ER) | payer MEDICARE, MEDICAID ==
[2020-04-08 14:47] LABS: VENOUS BASE EXCESS -0.7 (-2.0-2.0); VENOUS HCO3 24.1 MEQ/L (23.0-27.0); VENOUS O2 SATURATION 97.1 % (60.0-80.0); VENOUS PARTIAL PRESSURE O2 84.8 mmHg (30.0-50.0); VENOUS PH 7.397 UNITS (7.330-7.430); VENOUS STANDARD HCO3 23.9 MEQ/L; VENOUS TOTAL CO2 25.3 MEQ/L (24.0-28.0)
[2020-04-08 14:52] LABS: BASO # 0.1 10^3/uL (0.0-0.2); BASO % 0.8 % (0.0-1.0); EOS # 0.5 10^3/uL (0.0-0.5); EOS % 3.6 % (0.0-3.0); HEMATOCRIT 35.2 % (36.0-47.0); HEMOGLOBIN 11.1 g/dl (12.0-15.5); LYMPH # 3.3 10^3/uL (1.5-5.0); LYMPH % 26.3 % (24.0-44.0); MEAN CORPUSCULAR HEMOGLOBIN 28.5 pg (27.0-33.0); MEAN CORPUSCULAR HGB CONC 31.5 g/dl (32.0-36.5); MEAN CORPUSCULAR VOLUME 90.5 fl (80.0-96.0); MONO # 0.6 10^3/uL (0.0-0.8); MONO % 4.7 % (2.0-8.0); NEUTROPHILS # 8.1 10^3/uL (1.5-8.5); NEUTROPHILS % 64.2 % (36.0-66.0); PLATELET COUNT, AUTOMATED 322 10^3/uL (150-450); RED BLOOD COUNT 3.89 10^6/uL (4.00-5.40); WHITE BLOOD COUNT 12.6 10^3/uL (4.0-10.0)
[2020-04-08 14:58] VITALS: O2SAT 94
[2020-04-08] MEDS ORDERED: PRED20TA PO (15:07)
[2020-04-08] MEDS ORDERED: predniSONE 20 MG TAB PO ONE (15:15)
[2020-04-08 15:42] LABS: ALT/SGPT 28 U/L (12-78); BILIRUBIN,TOTAL 0.1 MG/DL (0.2-1.0); BLOOD UREA NITROGEN 14 MG/DL (7-18); CALCIUM LEVEL 8.4 MG/DL (8.5-10.1); CARBON DIOXIDE LEVEL 25 MEQ/L (21-32); CHLORIDE LEVEL 110 MEQ/L (98-107); CREATININE FOR GFR 0.81 MG/DL (0.55-1.30); GLOMERULAR FILTRATION RATE > 60.0 (>51); GLUCOSE, FASTING 34 MG/DL (70-100); MAGNESIUM LEVEL 1.9 MG/DL (1.8-2.4); NT-PRO BNP 120 PG/ML (<125); POTASSIUM SERUM 3.4 MEQ/L (3.5-5.1); SODIUM LEVEL 143 MEQ/L (136-145); TOTAL PROTEIN 6.4 GM/DL (6.4-8.2); TROPONIN I < 0.02 NG/ML (< 0.10)
[2020-04-08] MEDS ORDERED: ISOVUE-370 76% 100ML VIAL As Ordered ONE (15:46)
--- NOTE | 2020-04-08 16:53 | REP ---
INDICATION: sob. COMPARISON: 02/01/2020. TECHNIQUE: CT angiogram chest performed following the intravenous administration of 100 cc of Isovue 370. Sagittal and coronal reconstruction images are performed. FINDINGS: Lungs: There are mild diffuse increased interstitial markings with multiple tiny nodular opacities as well measuring up to 4 mm, the appearance is compatible with diffuse bilateral reticulonodular interstitial infiltrate or edema. Mediastinum: No adenopathy. Pulmonary arteries: No evidence of pulmonary embolism. Pamela: No adenopathy. Axilla: No adenopathy. Pleura: No effusion. Heart: Not enlarged. Thoracic aorta: No aneurysm or dissection. Upper abdominal structures: There is a small hiatal hernia. Visualized osseous structures: Unremarkable. IMPRESSION: No CT evidence of pulmonary embolism. Diffuse bilateral reticulonodular interstitial infiltrate or edema. <Electronically signed by Ahsan Manuel > 04/08/20 [id number]
[2020-04-08] MEDS ORDERED: DOXY-342 PO (17:23)
[2020-04-08] MEDS ORDERED: CEFD300C PO (17:23)
[2020-04-08] MEDS ORDERED: CEFDINIR 300 MG CAP (OMNICEF) PO ONE (17:25)
--- NOTE | 2020-04-08 17:26 | REP ---
INDICATION: COUGH. Cough. COMPARISON: 02/18/2020. TECHNIQUE: SINGLE PORTABLE AP VIEW OF THE CHEST WAS PERFORMED. FINDINGS: THERE IS NO ACUTE INFILTRATE OR PULMONARY EDEMA. LUNGS ARE CLEAR. HEART IS NOT SIGNIFICANTLY ENLARGED. MEDIASTINAL SILHOUETTE IS UNREMARKABLE. THE VISUALIZED OSSEOUS STRUCTURES ARE INTACT. IMPRESSION: NO ACUTE PULMONARY DISEASE. <Electronically signed by Ahsan Manuel > 04/08/20 [id number]
== END 2020-04-08 18:20 | disposition home or self-care (01) ==
LOC: M ED 11:25
DX: J45.901 Unspecified asthma with (acute) exacerbation (principal); J84.89 Other specified interstitial pulmonary diseases; E11.9 Type 2 diabetes mellitus without complications; I10 Essential (primary) hypertension; Z86.73 Personal history of transient ischemic attack (TIA), and cerebral infarction without residual deficits; G47.33 Obstructive sleep apnea (adult) (pediatric); G43.909 Migraine, unspecified, not intractable, without status migrainosus; Z87.891 Personal history of nicotine dependence; K90.0 Celiac disease; Z79.4 Long term (current) use of insulin; Z79.899 Other long term (current) drug therapy; Z91.018 Allergy to other foods; Z91.89 Other specified personal risk factors, not elsewhere classified
CPT/HCPCS: 71045; 71275; 80053; 82803; 83735; 83880; 84484; 85025; 87804; 99284; Q9967; U0003

== ENCOUNTER → 2020-04-28 | Outpatient (REF) | payer MEDICARE, MEDICAID ==
[~2020-04-28] MED LIST changes: +ASPI-569 PO; -ASPI81TAEC PO; +CEFD300C PO; +DOXY-342 PO
[2020-04-28 14:00] LABS: BASO # 0.1 10^3/uL (0.0-0.2); BASO % 0.9 % (0.0-1.0); EOS # 0.3 10^3/uL (0.0-0.5); EOS % 2.6 % (0.0-3.0); HEMATOCRIT 37.5 % (36.0-47.0); HEMOGLOBIN 11.5 g/dl (12.0-15.5); LYMPH # 1.8 10^3/uL (1.5-5.0); LYMPH % 18.5 % (24.0-44.0); MEAN CORPUSCULAR HEMOGLOBIN 28.5 pg (27.0-33.0); MEAN CORPUSCULAR HGB CONC 30.7 g/dl (32.0-36.5); MEAN CORPUSCULAR VOLUME 93.1 fl (80.0-96.0); MONO # 0.7 10^3/uL (0.0-0.8); MONO % 7.6 % (2.0-8.0); NEUTROPHILS # 6.7 10^3/uL (1.5-8.5); NEUTROPHILS % 70.1 % (36.0-66.0); PLATELET COUNT, AUTOMATED 361 10^3/uL (150-450); RED BLOOD COUNT 4.03 10^6/uL (4.00-5.40); WHITE BLOOD COUNT 9.6 10^3/uL (4.0-10.0)
[2020-04-28 14:18] LABS: HEMOGLOBIN A1c 7.5 %
[2020-04-28 14:36] LABS: ALBUMIN 3.2 GM/DL (3.2-5.2); ALT/SGPT 16 U/L (12-78); BILIRUBIN,TOTAL 0.2 MG/DL (0.2-1.0); BLOOD UREA NITROGEN 13 MG/DL (7-18); CALCIUM LEVEL 8.6 MG/DL (8.5-10.1); CARBON DIOXIDE LEVEL 27 MEQ/L (21-32); CHLORIDE LEVEL 104 MEQ/L (98-107); CREATININE FOR GFR 0.78 MG/DL (0.55-1.30); GLOMERULAR FILTRATION RATE > 60.0 (>51); GLUCOSE, FASTING 130 MG/DL (70-100); POTASSIUM SERUM 4.3 MEQ/L (3.5-5.1); SODIUM LEVEL 137 MEQ/L (136-145); TOTAL PROTEIN 6.9 GM/DL (6.4-8.2)
[2020-04-28 14:37] LABS: FERRITIN 112 NG/ML (8-252)
[2020-04-28 14:39] LABS: PTH INTACT 63.1 PG/ML (18.5-88.0); TOTAL 25(OH) VITAMIN D 37.8 NG/ML (30.0-100.0)
[2020-05-01 11:24] LABS: ALBUMIN 3.52 GM/DL (3.29-5.55); ALPHA-1-GLOBULIN % 6.3 % (2.9-4.9); ALPHA-2-GLOBULINS % 15.4 % (7.1-11.8); BETA-1-GLOBULINS % 6.1 % (4.7-7.2); GAMMA GLOBULIN % 15.2 % (11.1-18.8)
[2020-05-01 11:25] LABS: ALPHA-1-GLOBULINS 0.43 GM/DL (0.17-0.41); ALPHA-2-GLOBULINS 1.06 GM/DL (0.42-0.99); BETA-1-GLOBULINS 0.42 GM/DL (0.28-0.60); BETA-2-GLOBULINS 0.41 GM/DL (0.19-0.55); GAMMA GLOBULINS 1.05 GM/DL (0.65-1.58)
[2020-05-01 18:06] LABS: ISLET CELL ANTIBODIES Negative (Neg:<1:1)
== END ==
LOC: M PLALAB 10:42
PROVIDERS: ATTEND Family Medicine
DX: D50.9 Iron deficiency anemia, unspecified (principal); I10 Essential (primary) hypertension; E10.65 Type 1 diabetes mellitus with hyperglycemia

== ENCOUNTER → 2020-05-22 | Outpatient (CLI) | payer MEDICARE, MEDICAID ==
--- NOTE | 2020-05-22 13:02 | REPPI ---
INDICATION: COUGH. COMPARISON: 04/08/2020 a portable exam TECHNIQUE: PA and lateral views FINDINGS: A patchy opacity has developed in the lingula. Slight left CP angle blunting has developed since the last exam. The right lung is clear. The heart is not enlarged. The osseous structures are stable and intact. IMPRESSION: Lingular opacity consistent with pneumonia. <Electronically signed by Klever Carrasco > 05/22/20 [id number]
== END ==
LOC: M PLAIMG 12:31
PROVIDERS: ATTEND Family Medicine
DX: R91.8 Other nonspecific abnormal finding of lung field (principal); R05 Cough
CPT/HCPCS: 71046; G0463

== ENCOUNTER → 2020-07-24 | Outpatient (REF) | payer MEDICARE, MEDICAID ==
[2020-07-24 13:33] LABS: BASO # 0.1 10^3/uL (0.0-0.2); BASO % 1.6 % (0.0-1.0); EOS # 0.4 10^3/uL (0.0-0.5); EOS % 5.6 % (0.0-3.0); HEMATOCRIT 40.7 % (36.0-47.0); HEMOGLOBIN 12.5 g/dl (12.0-15.5); LYMPH # 1.6 10^3/uL (1.5-5.0); LYMPH % 24.8 % (24.0-44.0); MEAN CORPUSCULAR HEMOGLOBIN 27.8 pg (27.0-33.0); MEAN CORPUSCULAR HGB CONC 30.7 g/dl (32.0-36.5); MEAN CORPUSCULAR VOLUME 90.4 fl (80.0-96.0); MONO # 0.3 10^3/uL (0.0-0.8); MONO % 5.4 % (2.0-8.0); NEUTROPHILS # 3.9 10^3/uL (1.5-8.5); NEUTROPHILS % 62.4 % (36.0-66.0); PLATELET COUNT, AUTOMATED 264 10^3/uL (150-450); WHITE BLOOD COUNT 6.3 10^3/uL (4.0-10.0)
[2020-07-24 14:15] LABS: ALBUMIN 3.2 GM/DL (3.2-5.2); ALT/SGPT 28 U/L (12-78); BILIRUBIN,TOTAL 0.2 MG/DL (0.2-1.0); BLOOD UREA NITROGEN 15 MG/DL (7-18); C REACTIVE PROTEIN QUANTITATIV 0.66 MG/DL (0.00-0.30); CALCIUM LEVEL 8.6 MG/DL (8.5-10.1); CARBON DIOXIDE LEVEL 27 MEQ/L (21-32); CHLORIDE LEVEL 107 MEQ/L (98-107); CHOLESTEROL LEVEL 188 MG/DL (<200); CHOLESTEROL RISK RATIO 2.088 (<5); CPK CREATINE PHOSPHOKINASE 74 U/L (26-192); CREATININE FOR GFR 0.75 MG/DL (0.55-1.30); FERRITIN 56 NG/ML (8-252); GLOMERULAR FILTRATION RATE > 60.0 (>51); GLUCOSE, FASTING 148 MG/DL (70-100); HDL CHOLESTEROL 90 MG/DL (>40); LDL CHOLESTEROL 86 MG/DL (<100); NON-HDL-C 98 MG/DL; POTASSIUM SERUM 4.7 MEQ/L (3.5-5.1); SODIUM LEVEL 138 MEQ/L (136-145); TOTAL PROTEIN 7.1 GM/DL (6.4-8.2); TRIGLYCERIDES LEVEL 58 MG/DL (<150); VITAMIN B12 LEVEL 601 PG/ML (247-911)
== END ==
LOC: M PLALAB 10:25
PROVIDERS: ATTEND Family Medicine
DX: D50.9 Iron deficiency anemia, unspecified (principal); E10.65 Type 1 diabetes mellitus with hyperglycemia

== ENCOUNTER → 2020-07-25 | Outpatient (REF) | payer MEDICARE, MEDICAID ==
[~2020-07-25] MED LIST changes: +OMEP40CA4 PO; -OMEP40CA97 PO; -OXYC1TAB15 PO; +OXYC7.5T3 PO
[2020-07-25 12:31] LABS: MALB URINE SIEMENS 14.5 MG/L; MAU/CREAT RATIO 11.4 MCG/MG (0.0-30.0)
== END ==
LOC: M SFHCPLAZ 10:16
PROVIDERS: ATTEND Family Medicine
DX: E10.65 Type 1 diabetes mellitus with hyperglycemia (principal)
CPT/HCPCS: 82043; G0463

== ENCOUNTER → 2020-11-17 | Outpatient (CLI) | payer MEDICARE, OTHER ==
[~2020-11-17] MED LIST changes: -CLIN150C15 PO; +CLIN150C17 PO
[2020-11-17 11:36] LABS: APPEARANCE, URINE CLEAR (CLEAR); BACTERIA, URINE AUTO NEGATIVE (NEGATIVE); BILIRUBIN, URINE AUTO NEGATIVE (NEGATIVE); BLOOD, URINE BLOOD NEGATIVE (NEGATIVE); COLOR, URINE STRAW (YELLOW); GLUCOSE, URINE (UA) AUTO NEGATIVE (NEGATIVE); KETONE, URINE AUTO NEGATIVE (NEGATIVE); LEUKOCYTE ESTERASE, URINE AUTO NEGATIVE (NEGATIVE); NITRITE, URINE AUTO NEGATIVE (NEGATIVE); PROTEIN, URINE AUTO NEGATIVE (NEGATIVE); RBC, URINE AUTO 0 /HPF (0-3); SPECIFIC GRAVITY URINE AUTO 1.008 (1.002-1.035); SQUAMOUS EPITHELIAL CELL UR AU 0 /HPF (0-6); UROBILINOGEN, URINE AUTO 0.2 mg/dL (0.0-2.0); WBC, URINE AUTO 1 /HPF (0-3)
[2020-11-17 11:39] LABS: BASO # 0.2 10^3/uL (0.0-0.2); BASO % 1.9 % (0.0-1.0); EOS # 0.5 10^3/uL (0.0-0.5); EOS % 5.8 % (0.0-3.0); HEMATOCRIT 39.8 % (36.0-47.0); HEMOGLOBIN 12.8 g/dl (12.0-15.5); LYMPH # 1.8 10^3/uL (1.5-5.0); LYMPH % 22.9 % (24.0-44.0); MEAN CORPUSCULAR HGB CONC 32.2 g/dl (32.0-36.5); MEAN CORPUSCULAR VOLUME 93.2 fl (80.0-96.0); MONO # 0.4 10^3/uL (0.0-0.8); MONO % 5.1 % (2.0-8.0); NEUTROPHILS # 5.1 10^3/uL (1.5-8.5); NEUTROPHILS % 64.2 % (36.0-66.0); PLATELET COUNT, AUTOMATED 274 10^3/uL (150-450); RED BLOOD COUNT 4.27 10^6/uL (4.00-5.40); WHITE BLOOD COUNT 7.9 10^3/uL (4.0-10.0)
[2020-11-17 13:15] LABS: FREE T4 0.78 NG/DL (0.76-1.46); THYROID STIMULATING HORMONE 1.86 uIU/ML (0.358-3.740)
[2020-11-17 13:18] LABS: THYROID PEROXIDASE ANTIBODY 31.5 U/ML (<60.0); TOTAL 25(OH) VITAMIN D 40.8 NG/ML (30.0-100.0)
[2020-11-17 13:19] LABS: PTH INTACT 32.2 PG/ML (18.5-88.0)
[2020-11-17 13:48] LABS: CREATININE, URINE 19.2 MG/DL; MALB URINE SIEMENS < 5.0 MG/L
[2020-11-17 18:37] LABS: HEMOGLOBIN A1c 7.7 %
== END ==
LOC: M PLALAB 07:46
PROVIDERS: ATTEND Family Medicine
DX: D50.9 Iron deficiency anemia, unspecified (principal); E10.65 Type 1 diabetes mellitus with hyperglycemia; E55.9 Vitamin D deficiency, unspecified

== ENCOUNTER → 2020-12-05 | Outpatient (CLI) | payer MEDICARE, MEDICAID ==
[~2020-12-05] MED LIST changes: -LEVO500T3 PO; +LEVO500T4 PO; -MONT10TA10 PO; +MONT10TA97 PO; +SUMA6CAR SC; -SUMA6INJ16 SC; +SUMA6INJ25 SC; -SUMA6KIT SC; +TIZA10TA PO; -TIZA4TAB4 PO
[2020-12-05 10:19] LABS: BASO # 0.1 10^3/uL (0.0-0.2); BASO % 1.9 % (0.0-1.0); EOS # 0.5 10^3/uL (0.0-0.5); EOS % 7.1 % (0.0-3.0); HEMATOCRIT 40.3 % (36.0-47.0); HEMOGLOBIN 12.8 g/dl (12.0-15.5); LYMPH # 1.6 10^3/uL (1.5-5.0); MEAN CORPUSCULAR HEMOGLOBIN 29.8 pg (27.0-33.0); MEAN CORPUSCULAR HGB CONC 31.8 g/dl (32.0-36.5); MEAN CORPUSCULAR VOLUME 93.9 fl (80.0-96.0); MONO # 0.4 10^3/uL (0.0-0.8); NEUTROPHILS # 3.9 10^3/uL (1.5-8.5); NEUTROPHILS % 60.8 % (36.0-66.0); PLATELET COUNT, AUTOMATED 278 10^3/uL (150-450); RED BLOOD COUNT 4.29 10^6/uL (4.00-5.40); WHITE BLOOD COUNT 6.5 10^3/uL (4.0-10.0)
[2020-12-05 10:56] LABS: FREE T4 0.72 NG/DL (0.76-1.46); THYROID STIMULATING HORMONE 1.14 uIU/ML (0.358-3.740)
[2020-12-05 11:27] LABS: HEMOGLOBIN A1c 7.6 %
[2020-12-05 11:53] LABS: TOTAL 25(OH) VITAMIN D 43.3 NG/ML (30.0-100.0)
[2020-12-05 11:54] LABS: THYROID PEROXIDASE ANTIBODY 30.4 U/ML (<60.0)
[2020-12-05 11:55] LABS: PTH INTACT 55.1 PG/ML (18.5-88.0)
== END ==
LOC: M PLALAB 07:54
PROVIDERS: ATTEND Family Medicine
DX: E55.9 Vitamin D deficiency, unspecified (principal); E10.65 Type 1 diabetes mellitus with hyperglycemia; D50.9 Iron deficiency anemia, unspecified; Z79.899 Other long term (current) drug therapy

== ENCOUNTER → 2020-12-14 | Outpatient (CLI) | payer MEDICARE, MEDICAID ==
[~2020-12-14] MED LIST changes: +E-Z-GAS II EFFERVESCENT PACKET (SODIUM BICARB./CITRIC ACID/SIMETHICONE) As Ordered ONE; +E-Z-HD 98% w/w 340GM SUSP BTL As Ordered ONE; +E-Z-PAQUE 96% w/w SUSP 176GM BTL As Ordered ONE; +ISOVUE-370 76% 100ML VIAL As Ordered ONE; +LEVO500T3 PO; -LEVO500T4 PO; +MONT10TA10 PO; -MONT10TA97 PO; -SUMA6CAR SC; +SUMA6INJ16 SC; -SUMA6INJ25 SC; +SUMA6KIT SC; -TIZA10TA PO; +TIZA4TAB4 PO
--- NOTE | 2020-12-14 10:08 | REP ---
INDICATION: GASTROPARESIS, NODULE RT LUNG. COMPARISON: CTA chest 04/08/2020 TECHNIQUE: 75 cc Isovue 370 scanning through the chest with standard coronal and sagittal and MIP coronal reconstructions provided. FINDINGS: Post noted bilateral scattered small interstitial opacities and sub 4 mm nodules are resolved. There is 1 zone of curvilinear fibro atelectatic change inferior lingular segment of the left upper lobe at the low anterior left lung base along the heart border to the chest wall. Is also a minor zone of curvilinear fibrosis medial segment right middle lobe anterior right lung base, stable. Patchy interstitial infiltrates in the lower lung zones posteriorly are cleared. There are new nodules or interstitial infiltrates. Couple of 2-3 mm nodules are seen scattered as benign findings. No pleural thickening, effusion, calcified pleural plaque or masses. Heart is not enlarged there is no pericardial thickening or effusion. The aorta is without aneurysm or dissection. Main, right and left pulmonary arteries in the mediastinum and hilar regions are without filling defects. Some coronary artery calcifications are noted. No pathologic sized mediastinal, hilar, axillary or supraclavicular adenopathy. Small hiatal hernia noted. There is been a gastric bypass. The bone windows show no acute finding. Clips from prior cholecystectomy are noted. That portion of liver included was unremarkable. That portion of pancreas, upper poles of the kidneys and bowel loops a seen were unremarkable. Adrenal glands are normal. No splenomegaly. IMPRESSION: 1. Clearing of the interstitial infiltrates from the prior study and almost all of the nodules seen are clear there are only a couple of a 2 mm nodule seen peripherally which are not felt to be significant. A new curvilinear zone of minor subsegmental atelectatic change noted in the inferior lingular segment anteriorly at the left lung base and some minor fibrotic change medial segment right middle lobe at the anterior right lung base. 2. No other significant or acute finding. <Electronically signed by Wes Evans > 12/14/20 1009
--- NOTE | 2020-12-14 19:12 | REP ---
INDICATION: GASTROPARESIS, NODULE RT LUNG. COMPARISON: Upper GI with small-bowel follow-through dated 07/20/2019 TECHNIQUE: This procedure was performed by SARAH Kirby, under the direct supervision of Dr. Manuel. Images were reviewed with Dr. Manuel prior to dictation. Liquid barium was given in the erect position, as well as liquid barium in the prone oblique position in order to perform a single contrast upper GI examination. Additional liquid barium was given at the end of the examination in order to perform a small-bowel follow-through. FINDINGS: The coordinator of rehabilitation services film shows no organomegaly or pathological masses. The intestinal gas pattern is unremarkable. The oral and pharyngeal stages of deglutition were unremarkable. Esophageal transport is prompt and efficient and there is no evidence of esophagitis, stricture, or mucosal ring. Minor tertiary contractions are seen on this examination. There is evidence of a small hiatal hernia. Gastroesophageal reflux was observed to below the level of ana lilia. There is minimal mucosal irregularity in the esophagus which is a significant improvement from the study dated 07/20/2019. The patient has a history of gastric sleeve surgery. The stomach shrestha are normally outlined. The rugal folds are smooth and regular. There is no gastritis, neoplasm, or ulcerative disease. The duodenal shrestha are normally outlined. The mucosal folds are smooth and regular. There is no duodenitis, peptic ulcer disease or neoplasm. The visualized portion of the proximal small bowel appears normal in course and caliber. The barium column was followed through the small bowel to the level of the terminal ileum. Small bowel transit time is approximately 195 minutes. During fluoroscopy gentle palpation shows all loops are freely movable and pliable. There is no fixed angulated loops. The small bowel mucosal pattern is normal in course and caliber. There is no transition to suggest a partial small bowel obstruction. Spot filming of the terminal ileum shows it to be unremarkable. IMPRESSION: There are minor tertiary contractions seen on today's examination. There is evidence of a small hiatal hernia. Gastroesophageal reflux was observed to below the level of the ana lilia. There is minimal mucosal irregularity of the esophagus. This is a significant improvement from the study dated 07/20/2019. The patient has a history of gastric sleeve surgery. The small bowel follow-through transit time was approximately 195 minutes. 5.3 minutes of fluoroscopy time was utilized for this procedure. Some fluoroscopic images are performed with last image hold technology. These images require no additional radiation. <Electronically signed by Katie Moe > 12/14/20 1633 <Electronically signed by Ahsan Manuel > 12/14/20 [id number]
== END ==
LOC: M RAD 08:38
PROVIDERS: ATTEND Family Medicine
DX: R91.1 Solitary pulmonary nodule (principal); Z98.84 Bariatric surgery status; K31.84 Gastroparesis
CPT/HCPCS: 71260; 74246; Q9967

== ENCOUNTER → 2020-12-18 | Outpatient (CLI) | payer MEDICARE, MEDICAID ==
[~2020-12-18] MED LIST changes: -E-Z-GAS II EFFERVESCENT PACKET (SODIUM BICARB./CITRIC ACID/SIMETHICONE) As Ordered ONE; -E-Z-HD 98% w/w 340GM SUSP BTL As Ordered ONE; -E-Z-PAQUE 96% w/w SUSP 176GM BTL As Ordered ONE; -ISOVUE-370 76% 100ML VIAL As Ordered ONE
[2020-12-18 17:47] LABS: BASO # 0.1 10^3/uL (0.0-0.2); BASO % 1.5 % (0.0-1.0); EOS # 0.4 10^3/uL (0.0-0.5); EOS % 6.6 % (0.0-3.0); HEMATOCRIT 39.7 % (36.0-47.0); HEMOGLOBIN 12.6 g/dl (12.0-15.5); LYMPH # 2.5 10^3/uL (1.5-5.0); LYMPH % 41.7 % (24.0-44.0); MEAN CORPUSCULAR HEMOGLOBIN 29.9 pg (27.0-33.0); MEAN CORPUSCULAR HGB CONC 31.7 g/dl (32.0-36.5); MEAN CORPUSCULAR VOLUME 94.1 fl (80.0-96.0); MONO # 0.4 10^3/uL (0.0-0.8); MONO % 5.9 % (2.0-8.0); NEUTROPHILS # 2.7 10^3/uL (1.5-8.5); NEUTROPHILS % 44.1 % (36.0-66.0); PLATELET COUNT, AUTOMATED 278 10^3/uL (150-450); RED BLOOD COUNT 4.22 10^6/uL (4.00-5.40); WHITE BLOOD COUNT 6.1 10^3/uL (4.0-10.0)
[2020-12-18 17:55] LABS: ALBUMIN 3.4 GM/DL (3.2-5.2); BILIRUBIN,TOTAL 0.2 MG/DL (0.2-1.0); CALCIUM LEVEL 9.1 MG/DL (8.5-10.1); CREATININE FOR GFR 1.02 MG/DL (0.55-1.30); GLOMERULAR FILTRATION RATE 59.5 (>51); POTASSIUM SERUM 4.1 MEQ/L (3.5-5.1); TOTAL PROTEIN 6.9 GM/DL (6.4-8.2)
== END ==
LOC: M PLALAB 14:36
PROVIDERS: ATTEND Physician Assistant
DX: R19.7 Diarrhea, unspecified (principal); E10.9 Type 1 diabetes mellitus without complications; R11.0 Nausea
CPT/HCPCS: 36415; 80053; 83690; 85025; 87426; G0463; U0003

== ENCOUNTER → 2020-12-20 | Outpatient (REF) | payer MEDICARE, MEDICAID | LOC: M SFHCPLAZ 10:05 | PROVIDERS: ATTEND Physician Assistant | DX: R19.7 Diarrhea, unspecified (principal) ==

== ENCOUNTER → 2021-02-12 | Outpatient (CLI) | payer MEDICARE, MEDICAID ==
--- NOTE | 2021-02-12 08:47 | REPMRS ---
Patient History The patient states she has not had a clinical breast exam in over a year. Patient is postmenopausal. No known family history of cancer. Took hormonal contraceptives for 5 years. Pfizer vaccines 04/21/20, 05/12/20, 11/11/20, Pt is unsure of what arms she had her vaccines in. Patient states no breast complaints today. Patient has signed MRS History Sheet. Digital Woman Screen Mammo: February 12, 2021 - Exam #: [id number] Bilateral CC and MLO view(s) were taken. Technologist: RT Max Prior study comparison: January 13, 2020, bilateral digital woman screen mammo, performed at [facility]. December 16, 2018, bilateral digital woman screen mammo, performed at [facility]. FINDINGS: The breast tissue is heterogeneously dense. This may lower the sensitivity of mammography. Screening. Digital screening (2D) mammography was performed bilaterally in the CC and MLO projections. Additionally, breast tomosynthesis (3D mammography) was performed bilaterally in the CC and MLO projections. Todays exam was compared to the prior exam/exams. By history, the patient has no complaints of a palpable breast abnormality or other significant breast complaints. The breasts are unchanged in size and shape. Once again, dense heterogenous fibroglandular elements are seen bilaterally in a stable appearing pattern but to such a degree that the sensitivity of the mammogram in detecting cancer is decreased.There are no chelsea-soft tissue densities or spiculated masses. There is no internal architectural distortion. Once again, stable benign appearing calcifications are seen.There are no suspicious chelsea-calcific clusters. Skin thickening or nipple retraction is not present. IMPRESSION: BI-RADS Category 2- Benign Findings. There is no evidence of malignant alteration of the breasts. Followup examination recommended in one year. The Volpara volumetric breast density category is C, the breasts are heterogenously dense which may obscure small masses. This mammogram was read with the assistance of [employer],an FDA approved computer aided detection system for mammography. The lifetime Tyrer-Cuzick score is 7 % Due to the density of the breasts or Tyrer Cuzick score of 20% or greater, MRI/whole breast screening ultrasound is warranted. Negative x-ray reports should not delay surgical consultation if a dominant or clinically suspicious mass is present. Not all breast cancers can be identified by mammography. Therefore, we recommend that you continue to perform regular breast self-examination and physical examination and then promptly contact your physician of any concerns or changes. Adenosis and dense breasts may obscure an underlying neoplasm. Assessment: BI-RADS/ACR category 2 mammogram. Benign Findings. Recommendation Routine screening mammogram of both breasts in 1 year. Electronically Signed By: Klever Carrasco DO 02/12/21 0831
== END ==
LOC: M WHC 08:02
PROVIDERS: ATTEND Family Medicine
DX: Z12.31 Encounter for screening mammogram for malignant neoplasm of breast (principal)

== ENCOUNTER → 2021-02-27 | Outpatient (CLI) | payer MEDICARE, MEDICAID ==
[~2021-02-27] MED LIST changes: -LEVO500T3 PO; +LEVO500T4 PO; -MONT10TA10 PO; +MONT10TA97 PO; +SUMA6CAR SC; -SUMA6INJ16 SC; +SUMA6INJ25 SC; -SUMA6KIT SC; +TIZA10TA PO; -TIZA4TAB4 PO
[2021-02-27 15:37] LABS: BASO # 0.2 10^3/uL (0.0-0.2); BASO % 1.9 % (0.0-1.0); EOS # 0.6 10^3/uL (0.0-0.5); EOS % 5.9 % (0.0-3.0); HEMATOCRIT 39.2 % (36.0-47.0); HEMOGLOBIN 12.5 g/dl (12.0-15.5); LYMPH # 3.6 10^3/uL (1.5-5.0); LYMPH % 35.1 % (24.0-44.0); MEAN CORPUSCULAR HEMOGLOBIN 29.9 pg (27.0-33.0); MEAN CORPUSCULAR HGB CONC 31.9 g/dl (32.0-36.5); MEAN CORPUSCULAR VOLUME 93.8 fl (80.0-96.0); MONO # 0.6 10^3/uL (0.0-0.8); MONO % 5.4 % (2.0-8.0); NEUTROPHILS # 5.2 10^3/uL (1.5-8.5); NEUTROPHILS % 51.5 % (36.0-66.0); PLATELET COUNT, AUTOMATED 328 10^3/uL (150-450); RED BLOOD COUNT 4.18 10^6/uL (4.00-5.40); WHITE BLOOD COUNT 10.2 10^3/uL (4.0-10.0)
[2021-02-27 15:47] LABS: INR 0.94
[2021-02-27 15:48] LABS: PARTIAL THROMBOPLASTIN TIME 26.2 SECONDS (25.9-37.0)
[2021-02-27 16:14] LABS: ALBUMIN 3.5 GM/DL (3.2-5.2); ALT/SGPT 26 U/L (12-78); BILIRUBIN,TOTAL 0.1 MG/DL (0.2-1.0); BLOOD UREA NITROGEN 13 MG/DL (7-18); CALCIUM LEVEL 9.2 MG/DL (8.5-10.1); CARBON DIOXIDE LEVEL 29 MEQ/L (21-32); CHLORIDE LEVEL 105 MEQ/L (98-107); CREATININE FOR GFR 0.88 MG/DL (0.55-1.30); FERRITIN 38 NG/ML (8-252); GLOMERULAR FILTRATION RATE > 60.0 (>51); GLUCOSE, FASTING 74 MG/DL (70-100); LIPASE 85 U/L (73-393); POTASSIUM SERUM 3.9 MEQ/L (3.5-5.1); SODIUM LEVEL 140 MEQ/L (136-145); TOTAL PROTEIN 6.9 GM/DL (6.4-8.2)
[2021-02-27 16:16] LABS: VITAMIN B12 LEVEL 765 PG/ML (247-911)
== END ==
LOC: M PLALAB 12:46
PROVIDERS: ATTEND Family Medicine
DX: I10 Essential (primary) hypertension (principal); D50.9 Iron deficiency anemia, unspecified

== ENCOUNTER → 2021-03-22 | Outpatient (CLI) | payer MEDICARE, MEDICAID ==
[2021-03-22 14:18] LABS: FOLATE > 24.0 NG/ML; FREE T4 0.78 NG/DL (0.76-1.46); RHEUMATOID FACTOR QUANT < 10.0 IU/ML (<15.0); TOTAL PROTEIN 7.2 GM/DL (6.4-8.2); VITAMIN B12 LEVEL 955 PG/ML
[2021-03-22 14:30] LABS: HEMOGLOBIN A1c 7.7 %
[2021-03-26 09:09] LABS: ALBUMIN 4.07 GM/DL (3.29-5.55); ALBUMIN % 56.5 % (55.8-66.1); ALPHA-1-GLOBULIN % 4.9 % (2.9-4.9); ALPHA-1-GLOBULINS 0.35 GM/DL (0.17-0.41); ALPHA-2-GLOBULINS 0.85 GM/DL (0.42-0.99); ALPHA-2-GLOBULINS % 11.8 % (7.1-11.8); BETA-1-GLOBULINS 0.48 GM/DL (0.28-0.60); BETA-1-GLOBULINS % 6.6 % (4.7-7.2); BETA-2-GLOBULINS 0.37 GM/DL (0.19-0.55); BETA-2-GLOBULINS % 5.1 % (3.2-6.5); GAMMA GLOBULIN % 15.1 % (11.1-18.8); GAMMA GLOBULINS 1.09 GM/DL (0.65-1.58)
[2021-04-03 10:11] LABS: DRVV SCREEN 43.4 SEC
[2021-04-03 10:13] LABS: PTT LUPUS TYPE ANTICOAG SCREEN 1.2 (0-1.2)
[2021-04-03 10:28] LABS: DRVV CONFIRM 40.2 SEC
[2021-04-03 10:32] LABS: NORMALIZED RATIO 1.2 (0.00-1.20)
[2021-04-05 13:07] LABS: HEXAGONAL PHASE PHOSPHOLIPID 1 sec (0-11)
[2021-04-05 21:07] LABS: ANTINUCLEAR ANTIBODIES DIRECT Negative (Negative); VITAMIN B1 LEVEL WHOLE BLOOD 162.5 nmol/L (66.5-200.0); VITAMIN B6,PYRIDOXAL PHOSPHATE 7.7 ug/L (2.0-32.8); VITAMIN E(ALPHA TOCOPHEROL) 17.7 mg/L (7.0-25.1); VITAMIN E(GAMMA TOCOPHEROL) 0.4 mg/L (0.5-5.5)
== END ==
LOC: M PLALAB 10:17
PROVIDERS: ATTEND Psychiatry & Neurology Neurology
DX: R20.2 Paresthesia of skin (principal); G62.9 Polyneuropathy, unspecified

== ENCOUNTER → 2021-04-19 | Outpatient (CLI) | payer MEDICARE, MEDICAID ==
[~2021-04-19] MED LIST changes: -D31000TA2 PO; +VITA100093 PO
[2021-04-19 18:24] LABS: BASO # 0.1 10^3/uL (0.0-0.2); BASO % 1.7 % (0.0-1.0); EOS # 0.4 10^3/uL (0.0-0.5); EOS % 4.6 % (0.0-3.0); HEMATOCRIT 39.2 % (36.0-47.0); HEMOGLOBIN 12.6 g/dl (12.0-15.5); LYMPH # 2.8 10^3/uL (1.5-5.0); LYMPH % 32.9 % (24.0-44.0); MEAN CORPUSCULAR HEMOGLOBIN 29.9 pg (27.0-33.0); MEAN CORPUSCULAR HGB CONC 32.1 g/dl (32.0-36.5); MEAN CORPUSCULAR VOLUME 93.1 fl (80.0-96.0); MONO # 0.6 10^3/uL (0.0-0.8); NEUTROPHILS # 4.5 10^3/uL (1.5-8.5); NEUTROPHILS % 53.4 % (36.0-66.0); PLATELET COUNT, AUTOMATED 339 10^3/uL (150-450); RED BLOOD COUNT 4.21 10^6/uL (4.00-5.40); WHITE BLOOD COUNT 8.4 10^3/uL (4.0-10.0)
[2021-04-19 18:42] LABS: ALBUMIN 3.5 GM/DL (3.2-5.2); ALT/SGPT 25 U/L (12-78); BILIRUBIN,TOTAL 0.3 MG/DL (0.2-1.0); BLOOD UREA NITROGEN 12 MG/DL (7-18); CALCIUM LEVEL 9.2 MG/DL (8.5-10.1); CARBON DIOXIDE LEVEL 30 MEQ/L (21-32); CHLORIDE LEVEL 106 MEQ/L (98-107); CREATININE FOR GFR 0.93 MG/DL (0.55-1.30); GLOMERULAR FILTRATION RATE > 60.0 (>51); GLUCOSE, FASTING 81 MG/DL (70-100); NT-PRO BNP 53 PG/ML (<125); POTASSIUM SERUM 4.4 MEQ/L (3.5-5.1); SODIUM LEVEL 139 MEQ/L (136-145); TOTAL PROTEIN 7.1 GM/DL (6.4-8.2)
[2021-04-19 18:47] LABS: PROTHROMBIN TIME 13.6 SECONDS (12.7-14.5)
[2021-04-19 18:48] LABS: PARTIAL THROMBOPLASTIN TIME 27.5 SECONDS (25.9-37.0)
== END ==
LOC: M LAB 16:33
PROVIDERS: ATTEND Family Medicine
DX: E10.42 Type 1 diabetes mellitus with diabetic polyneuropathy (principal); R60.9 Edema, unspecified; K90.0 Celiac disease

== ENCOUNTER → 2021-04-20 | Outpatient (CLI) | payer MEDICARE, MEDICAID | LOC: M LABSMTC 09:10 | PROVIDERS: ATTEND Registered Nurse | DX: Z20.828 Contact with and (suspected) exposure to other viral communicable diseases (principal); Z11.59 Encounter for screening for other viral diseases ==

== ENCOUNTER → 2021-06-25 | Outpatient (CLI) | payer MEDICARE, MEDICAID ==
[~2021-06-25] MED LIST changes: +ALBU2.5V10 INH; -ALBU83IN INH; -ZONI100C17 PO; +ZONI100C67 PO
== END ==
LOC: M PLALAB 11:52
PROVIDERS: ATTEND Family Medicine
DX: I10 Essential (primary) hypertension (principal)

== ENCOUNTER → 2021-06-26 | Outpatient (CLI) | payer MEDICARE, MEDICAID ==
[~2021-06-26] MED LIST changes: -ALBU2.5V10 INH; +ALBU83IN INH
[2021-06-26 11:04] LABS: BASO # 0.1 10^3/uL (0.0-0.2); BASO % 1.4 % (0.0-1.0); EOS # 0.6 10^3/uL (0.0-0.5); EOS % 8.1 % (0.0-3.0); HEMATOCRIT 40.3 % (36.0-47.0); HEMOGLOBIN 12.8 g/dl (12.0-15.5); LYMPH # 1.6 10^3/uL (1.5-5.0); LYMPH % 20.2 % (24.0-44.0); MEAN CORPUSCULAR HEMOGLOBIN 30.5 pg (27.0-33.0); MEAN CORPUSCULAR HGB CONC 31.8 g/dl (32.0-36.5); MONO # 0.4 10^3/uL (0.0-0.8); MONO % 4.7 % (2.0-8.0); NEUTROPHILS % 65.2 % (36.0-66.0); PLATELET COUNT, AUTOMATED 412 10^3/uL (150-450); WHITE BLOOD COUNT 7.7 10^3/uL (4.0-10.0)
[2021-06-26 11:06] LABS: ALBUMIN 3.1 GM/DL (3.2-5.2); ALT/SGPT 15 U/L (12-78); BILIRUBIN,TOTAL 0.3 MG/DL (0.2-1.0); BLOOD UREA NITROGEN 11 MG/DL (7-18); CALCIUM LEVEL 8.9 MG/DL (8.5-10.1); CARBON DIOXIDE LEVEL 24 MEQ/L (21-32); CHLORIDE LEVEL 107 MEQ/L (98-107); CREATININE FOR GFR 0.86 MG/DL (0.55-1.30); FERRITIN 74 NG/ML (8-252); GLOMERULAR FILTRATION RATE > 60.0 (>51); GLUCOSE, FASTING 201 MG/DL (70-100); MAGNESIUM LEVEL 2.1 MG/DL (1.8-2.4); POTASSIUM SERUM 4.9 MEQ/L (3.5-5.1); SODIUM LEVEL 138 MEQ/L (136-145); TOTAL PROTEIN 6.5 GM/DL (6.4-8.2)
== END ==
LOC: M LAB 08:31
PROVIDERS: ATTEND Family Medicine
DX: I10 Essential (primary) hypertension (principal)

== ENCOUNTER → 2021-07-17 | Outpatient (REF) | payer MEDICARE, MEDICAID ==
[~2021-07-17] MED LIST changes: +ALBU2.5V10 INH; -ALBU83IN INH
== END ==
LOC: M SFHCPLAZ 10:15
PROVIDERS: ATTEND Physician Assistant
DX: N94.10 Unspecified dyspareunia (principal); N95.2 Postmenopausal atrophic vaginitis; Z92.89 Personal history of other medical treatment

== ENCOUNTER → 2021-08-07 | Outpatient (CLI) | payer MEDICARE, MEDICAID ==
[2021-08-07 10:23] LABS: BASO # 0.1 10^3/uL (0.0-0.2); BASO % 1.3 % (0.0-1.0); EOS # 0.4 10^3/uL (0.0-0.5); EOS % 3.5 % (0.0-3.0); HEMATOCRIT 43.5 % (36.0-47.0); HEMOGLOBIN 13.9 g/dl (12.0-15.5); LYMPH # 1.9 10^3/uL (1.5-5.0); LYMPH % 18.6 % (24.0-44.0); MEAN CORPUSCULAR HEMOGLOBIN 29.6 pg (27.0-33.0); MEAN CORPUSCULAR VOLUME 92.8 fl (80.0-96.0); MONO # 0.5 10^3/uL (0.0-0.8); MONO % 5.1 % (2.0-8.0); NEUTROPHILS # 7.3 10^3/uL (1.5-8.5); NEUTROPHILS % 70.5 % (36.0-66.0); PLATELET COUNT, AUTOMATED 392 10^3/uL (150-450); RED BLOOD COUNT 4.69 10^6/uL (4.00-5.40); WHITE BLOOD COUNT 10.4 10^3/uL (4.0-10.0)
[2021-08-07 10:51] LABS: ALBUMIN 3.2 GM/DL (3.2-5.2); ALT/SGPT 11 U/L (12-78); AMYLASE 30 U/L (25-115); BILIRUBIN,TOTAL 0.3 MG/DL (0.2-1.0); BLOOD UREA NITROGEN 12 MG/DL (7-18); CALCIUM LEVEL 9.5 MG/DL (8.5-10.1); CARBON DIOXIDE LEVEL 21 MEQ/L (21-32); CHLORIDE LEVEL 108 MEQ/L (98-107); CREATININE FOR GFR 0.85 MG/DL (0.55-1.30); GLOMERULAR FILTRATION RATE > 60.0 (>51); GLUCOSE, FASTING 191 MG/DL (70-100); LIPASE 55 U/L (73-393); POTASSIUM SERUM 4.3 MEQ/L (3.5-5.1); SODIUM LEVEL 139 MEQ/L (136-145); TOTAL PROTEIN 7.1 GM/DL (6.4-8.2)
== END ==
LOC: M LAB 09:16
PROVIDERS: ATTEND Physician Assistant
DX: R10.9 Unspecified abdominal pain (principal); Z79.899 Other long term (current) drug therapy

== ENCOUNTER → 2021-08-07 | Outpatient (CLI) | payer MEDICARE, MEDICAID | LOC: M RAD 13:46 | PROVIDERS: ATTEND Physician Assistant | DX: R10.9 Unspecified abdominal pain (principal); Z90.49 Acquired absence of other specified parts of digestive tract ==

== ENCOUNTER 2021-08-10 10:58 | Emergency (ER) | payer MEDICARE, MEDICAID ==
[~2021-08-10] VITALS: Ht 162.6 cm; Wt 68.2 kg
[2021-08-10] MEDS ORDERED: NS 1,000 ML IV ONE (12:05)
[2021-08-10] MEDS ORDERED: MORPHINE 4 MG/ML 1ML VIAL/SYRINGE IV ONE ×2 (12:05→18:00)
[2021-08-10] MEDS ORDERED: ONDANSETRON 4MG 2ML VIAL IV ONE ×2 (12:05→18:00)
[2021-08-10 13:33] LABS: BASO # 0.1 10^3/uL (0.0-0.2); BASO % 0.7 % (0.0-1.0); EOS # 0.2 10^3/uL (0.0-0.5); EOS % 2.2 % (0.0-3.0); HEMOGLOBIN 12.9 g/dl (12.0-15.5); LYMPH # 2.4 10^3/uL (1.5-5.0); LYMPH % 22.3 % (24.0-44.0); MEAN CORPUSCULAR HEMOGLOBIN 30.4 pg (27.0-33.0); MEAN CORPUSCULAR HGB CONC 33.1 g/dl (32.0-36.5); MEAN CORPUSCULAR VOLUME 91.8 fl (80.0-96.0); MONO # 0.6 10^3/uL (0.0-0.8); MONO % 5.8 % (2.0-8.0); NEUTROPHILS # 7.4 10^3/uL (1.5-8.5); NEUTROPHILS % 68.7 % (36.0-66.0); PLATELET COUNT, AUTOMATED 415 10^3/uL (150-450); RED BLOOD COUNT 4.25 10^6/uL (4.00-5.40); WHITE BLOOD COUNT 10.7 10^3/uL (4.0-10.0)
[2021-08-10 14:00] LABS: VENOUS HCO3 26.3 MEQ/L (23.0-27.0); VENOUS O2 SATURATION 53.6 % (60.0-80.0); VENOUS PARTIAL PRESSURE O2 26.6 mmHg (30.0-50.0); VENOUS PH 7.482 UNITS (7.330-7.430); VENOUS STANDARD HCO3 26.2 MEQ/L; VENOUS TOTAL CO2 27.4 MEQ/L (24.0-28.0)
[2021-08-10 14:07] LABS: ACETONE/KETONE 7.55 MG/DL (<2.81); BILIRUBIN,DIRECT 0.2 MG/DL (0.0-0.2); BILIRUBIN,TOTAL 0.5 MG/DL (0.2-1.0); CALCIUM LEVEL 9.5 MG/DL (8.5-10.1); CREATININE FOR GFR 1.07 MG/DL (0.55-1.30); GLOMERULAR FILTRATION RATE 56.3 (>51); POTASSIUM SERUM 3.6 MEQ/L (3.5-5.1); TOTAL PROTEIN 6.4 GM/DL (6.4-8.2)
[2021-08-10] MEDS ORDERED: ISOVUE-370 76% 100ML VIAL As Ordered ONE (14:13)
[2021-08-10 14:33] LABS: RSV AMPLIFICATION NEGATIVE (NEGATIVE)
[2021-08-10 16:26] LABS: HEMOGLOBIN A1c 6.9 %
[2021-08-10] MEDS ORDERED: D5W/0.45% SODIUM CHLORIDE 1,000 ML IV SCH (17:45)
[2021-08-10] MEDS ORDERED: MULTIVITAMIN -ADULT INJECTION 10 ML, THIAMINE INJection 100 MG, FOLIC ACID 1 MG in NS 1... IV ONE (18:25)
[2021-08-10] MEDS ORDERED: PROMETHAZINE 25MG/ML 1ML VIAL IV ONE (20:25)
[2021-08-10 21:34] VITALS: BP 120/65
== END 2021-08-10 21:41 | disposition short-term general hospital (02) ==
LOC: M ED 10:58
DX: K52.9 Noninfective gastroenteritis and colitis, unspecified (principal); E11.9 Type 2 diabetes mellitus without complications; I10 Essential (primary) hypertension; E78.5 Hyperlipidemia, unspecified; K21.9 Gastro-esophageal reflux disease without esophagitis; G43.909 Migraine, unspecified, not intractable, without status migrainosus; J45.909 Unspecified asthma, uncomplicated; Z86.73 Personal history of transient ischemic attack (TIA), and cerebral infarction without residual deficits; Z79.4 Long term (current) use of insulin; Z91.048 Other nonmedicinal substance allergy status; Z91.02 Food additives allergy status; Z79.899 Other long term (current) drug therapy; Z79.51 Long term (current) use of inhaled steroids
CPT/HCPCS: 36415; 74177; 80048; 80076; 81001; 82010; 82803; 83036; 83690; 83930; 85025; 87631; 96361; 96374; 96375; 99284; J2270; J2405; J2550; J3411; Q9967

== ENCOUNTER → 2021-08-14 | Outpatient (CLI) | payer MEDICARE, MEDICAID | LOC: M WUC 11:05 | PROVIDERS: ATTEND Family Medicine | DX: Z98.84 Bariatric surgery status (principal) ==

== ENCOUNTER → 2021-08-14 | Outpatient (CLI) | payer MEDICARE, MEDICAID ==
[2021-08-14 12:23] LABS: BASO # 0.1 10^3/uL (0.0-0.2); BASO % 1.8 % (0.0-1.0); EOS # 0.5 10^3/uL (0.0-0.5); EOS % 6.4 % (0.0-3.0); HEMATOCRIT 38.8 % (36.0-47.0); HEMOGLOBIN 12.3 g/dl (12.0-15.5); LYMPH # 2.4 10^3/uL (1.5-5.0); LYMPH % 32.1 % (24.0-44.0); MEAN CORPUSCULAR HGB CONC 31.7 g/dl (32.0-36.5); MEAN CORPUSCULAR VOLUME 94.6 fl (80.0-96.0); MONO # 0.4 10^3/uL (0.0-0.8); MONO % 4.9 % (2.0-8.0); NEUTROPHILS % 54.4 % (36.0-66.0); PLATELET COUNT, AUTOMATED 637 10^3/uL (150-450); WHITE BLOOD COUNT 7.4 10^3/uL (4.0-10.0)
[2021-08-14 12:41] LABS: ALBUMIN 3.1 GM/DL (3.2-5.2); ALT/SGPT 12 U/L (12-78); BILIRUBIN,TOTAL 0.2 MG/DL (0.2-1.0); BLOOD UREA NITROGEN 6 MG/DL (7-18); C REACTIVE PROTEIN QUANTITATIV 4.96 MG/DL (0.00-0.30); CALCIUM LEVEL 9.5 MG/DL (8.5-10.1); CARBON DIOXIDE LEVEL 26 MEQ/L (21-32); CHLORIDE LEVEL 111 MEQ/L (98-107); CREATININE FOR GFR 0.83 MG/DL (0.55-1.30); GLOMERULAR FILTRATION RATE > 60.0 (>51); GLUCOSE, FASTING 50 MG/DL (70-100); SODIUM LEVEL 144 MEQ/L (136-145)
== END ==
LOC: M LAB 11:44
PROVIDERS: ATTEND Family Medicine
DX: Z98.84 Bariatric surgery status (principal); Z79.899 Other long term (current) drug therapy

== ENCOUNTER → 2021-09-04 | Outpatient (CLI) | payer MEDICARE, MEDICAID ==
[2021-09-04 12:36] LABS: BASO # 0.1 10^3/uL (0.0-0.2); BASO % 1.7 % (0.0-1.0); EOS # 0.3 10^3/uL (0.0-0.5); EOS % 4.1 % (0.0-3.0); HEMATOCRIT 43.2 % (36.0-47.0); HEMOGLOBIN 13.7 g/dl (12.0-15.5); LYMPH # 1.8 10^3/uL (1.5-5.0); LYMPH % 21.5 % (24.0-44.0); MEAN CORPUSCULAR HEMOGLOBIN 29.1 pg (27.0-33.0); MEAN CORPUSCULAR HGB CONC 31.7 g/dl (32.0-36.5); MEAN CORPUSCULAR VOLUME 91.9 fl (80.0-96.0); MONO # 0.4 10^3/uL (0.0-0.8); MONO % 4.8 % (2.0-8.0); NEUTROPHILS # 5.5 10^3/uL (1.5-8.5); NEUTROPHILS % 67.7 % (36.0-66.0); PLATELET COUNT, AUTOMATED 321 10^3/uL (150-450); WHITE BLOOD COUNT 8.1 10^3/uL (4.0-10.0)
[2021-09-04 12:53] LABS: BILIRUBIN,TOTAL 0.3 MG/DL (0.2-1.0); CALCIUM LEVEL 9.6 MG/DL (8.5-10.1); CREATININE FOR GFR 1.05 MG/DL (0.55-1.30); GLOMERULAR FILTRATION RATE 57.5 (>51); POTASSIUM SERUM 3.6 MEQ/L (3.5-5.1); TOTAL PROTEIN 7.8 GM/DL (6.4-8.2)
== END ==
LOC: M LAB 11:57
PROVIDERS: ATTEND Family Medicine
DX: E10.42 Type 1 diabetes mellitus with diabetic polyneuropathy (principal); D50.9 Iron deficiency anemia, unspecified

== ENCOUNTER → 2021-09-27 | Outpatient (CLI) | payer MEDICARE, MEDICAID ==
[~2021-09-27] MED LIST changes: +LEVO1TAB39 PO; -LEVO500T4 PO
[2021-09-27 12:41] LABS: BASO # 0.1 10^3/uL (0.0-0.2); BASO % 1.3 % (0.0-1.0); EOS # 0.2 10^3/uL (0.0-0.5); EOS % 2.8 % (0.0-3.0); HEMATOCRIT 36.6 % (36.0-47.0); HEMOGLOBIN 11.6 g/dl (12.0-15.5); LYMPH # 2.9 10^3/uL (1.5-5.0); MEAN CORPUSCULAR HEMOGLOBIN 29.5 pg (27.0-33.0); MEAN CORPUSCULAR HGB CONC 31.7 g/dl (32.0-36.5); MEAN CORPUSCULAR VOLUME 93.1 fl (80.0-96.0); MONO # 0.5 10^3/uL (0.0-0.8); MONO % 5.5 % (2.0-8.0); NEUTROPHILS # 4.6 10^3/uL (1.5-8.5); NEUTROPHILS % 55.2 % (36.0-66.0); PLATELET COUNT, AUTOMATED 360 10^3/uL (150-450); RED BLOOD COUNT 3.93 10^6/uL (4.00-5.40); WHITE BLOOD COUNT 8.3 10^3/uL (4.0-10.0)
[2021-09-27 13:18] LABS: ALBUMIN 3.3 GM/DL (3.2-5.2); ALT/SGPT 20 U/L (12-78); BILIRUBIN,TOTAL 0.1 MG/DL (0.2-1.0); BLOOD UREA NITROGEN 12 MG/DL (7-18); CALCIUM LEVEL 9.1 MG/DL (8.5-10.1); CARBON DIOXIDE LEVEL 30 MEQ/L (21-32); CHLORIDE LEVEL 107 MEQ/L (98-107); CREATININE FOR GFR 0.93 MG/DL (0.55-1.30); GLOMERULAR FILTRATION RATE > 60.0 (>51); GLUCOSE, FASTING 126 MG/DL (70-100); LIPASE 60 U/L (73-393); POTASSIUM SERUM 4.2 MEQ/L (3.5-5.1); SODIUM LEVEL 142 MEQ/L (136-145); TOTAL PROTEIN 6.8 GM/DL (6.4-8.2)
== END ==
LOC: M LAB 11:13
PROVIDERS: ATTEND Physician Assistant
DX: K21.9 Gastro-esophageal reflux disease without esophagitis (principal); Z98.84 Bariatric surgery status; K31.84 Gastroparesis; K31.89 Other diseases of stomach and duodenum; R19.7 Diarrhea, unspecified

== ENCOUNTER → 2021-11-22 | Outpatient (CLI) | payer MEDICARE, MEDICAID ==
[~2021-11-22] MED LIST changes: +COLE625T17 PO; -COLE625TAB PO; -DOXY-342 PO; +DOXY100C81 PO
[2021-11-22 13:25] LABS: HEMATOCRIT 38.6 % (36.0-47.0)
[2021-11-22 13:27] LABS: BASO # 0.1 10^3/uL (0.0-0.2); BASO % 1.6 % (0.0-1.0); EOS # 0.6 10^3/uL (0.0-0.5); EOS % 7.1 % (0.0-3.0); HEMATOCRIT 38.6 % (36.0-47.0); LYMPH % 39.2 % (24.0-44.0); MEAN CORPUSCULAR HEMOGLOBIN 29.1 pg (27.0-33.0); MEAN CORPUSCULAR HGB CONC 31.1 g/dl (32.0-36.5); MEAN CORPUSCULAR VOLUME 93.5 fl (80.0-96.0); MONO # 0.5 10^3/uL (0.0-0.8); MONO % 6.9 % (2.0-8.0); NEUTROPHILS # 3.5 10^3/uL (1.5-8.5); NEUTROPHILS % 44.9 % (36.0-66.0); PLATELET COUNT, AUTOMATED 308 10^3/uL (150-450); RED BLOOD COUNT 4.13 10^6/uL (4.00-5.40); WHITE BLOOD COUNT 7.7 10^3/uL (4.0-10.0)
[2021-11-22 14:05] LABS: BLOOD UREA NITROGEN 25 MG/DL (7-18); CALCIUM LEVEL 8.8 MG/DL (8.5-10.1); CARBON DIOXIDE LEVEL 26 MEQ/L (21-32); CHLORIDE LEVEL 109 MEQ/L (98-107); CREATININE FOR GFR 0.92 MG/DL (0.55-1.30); GLOMERULAR FILTRATION RATE > 60.0 (>51); GLUCOSE, FASTING 104 MG/DL (70-100); POTASSIUM SERUM 4.5 MEQ/L (3.5-5.1); SODIUM LEVEL 139 MEQ/L (136-145)
[2021-11-22 14:06] LABS: ALBUMIN 3.4 GM/DL (3.2-5.2); ALT/SGPT 26 U/L (12-78); BILIRUBIN,TOTAL 0.2 MG/DL (0.2-1.0); CHOLESTEROL LEVEL 211 MG/DL (<200); CHOLESTEROL RISK RATIO 2.604 (<5); FERRITIN 20 NG/ML (8-252); HDL CHOLESTEROL 81 MG/DL (>40); LDL CHOLESTEROL 112 MG/DL (<100); NON-HDL-C 130 MG/DL; TOTAL PROTEIN 6.8 GM/DL (6.4-8.2); TRIGLYCERIDES LEVEL 90 MG/DL (<150)
[2021-11-22 14:39] LABS: PTH INTACT 139.9 PG/ML (18.5-88.0); TOTAL 25(OH) VITAMIN D 46.5 NG/ML (30.0-100.0)
[2021-11-22 16:24] LABS: HEMOGLOBIN A1c 6.7 %
[2021-11-23 14:28] LABS: VITAMIN B12 LEVEL 424 PG/ML (247-911)
== END ==
LOC: M PLALAB 10:24
PROVIDERS: ATTEND Family Medicine
DX: D50.9 Iron deficiency anemia, unspecified (principal); E78.2 Mixed hyperlipidemia; E55.9 Vitamin D deficiency, unspecified; E10.42 Type 1 diabetes mellitus with diabetic polyneuropathy

== ENCOUNTER → 2022-01-10 | Outpatient (CLI) | payer MEDICARE, MEDICAID ==
[~2022-01-10] MED LIST changes: -PAXI20TA29 PO; +PAXI20TA30 PO; -PAXI40TA10 PO; +PAXI40TA12 PO
== END ==
LOC: M RAD 14:31
PROVIDERS: ATTEND Family Medicine
DX: Z12.2 Encounter for screening for malignant neoplasm of respiratory organs (principal); Z87.891 Personal history of nicotine dependence

== ENCOUNTER → 2022-02-12 | Outpatient (CLI) | payer MEDICARE, MEDICAID | LOC: M PLARAD 10:42 | PROVIDERS: ATTEND Family Medicine | DX: Z12.2 Encounter for screening for malignant neoplasm of respiratory organs (principal); R91.1 Solitary pulmonary nodule | CPT/HCPCS: 78815; A9552 ==

== ENCOUNTER → 2022-02-14 | Outpatient (CLI) | payer MEDICARE, MEDICAID | LOC: M WHC 08:11 | PROVIDERS: ATTEND Family Medicine | DX: Z12.31 Encounter for screening mammogram for malignant neoplasm of breast (principal) ==

== ENCOUNTER → 2022-03-11 | Outpatient (CLI) | payer MEDICARE, MEDICAID | LOC: M LABSMTC 09:02 | PROVIDERS: ATTEND Registered Nurse | DX: Z01.818 Encounter for other preprocedural examination (principal); K21.00 Gastro-esophageal reflux disease with esophagitis, without bleeding; Z98.84 Bariatric surgery status ==

== ENCOUNTER → 2022-03-25 | Outpatient (CLI) | payer MEDICARE, MEDICAID | LOC: M LABSMTC 09:07 | PROVIDERS: ATTEND Registered Nurse | DX: Z20.822 Contact with and (suspected) exposure to COVID-19 (principal) ==

== ENCOUNTER → 2022-04-30 | Outpatient (CLI) | payer MEDICARE, MEDICAID ==
[~2022-04-30] MED LIST changes: +BELS1TAB2 PO; +CLON2TAB7 PO; +D-3-50003 PO; +INSU100I6 SC; +LANS30TA9 PO; -LEVE1INJ5 SC; +LORA-674 PO; +METO10TA2 PO; +MULT-110 PO; +VARE1TAB2 PO; +VENL100T PO; +[UNRECOGNIZED DRUG - CODE]
[2022-04-30 10:56] LABS: BASO # 0.1 10^3/uL (0.0-0.2); BASO % 2.5 % (0.0-1.0); EOS # 0.4 10^3/uL (0.0-0.5); EOS % 6.4 % (0.0-3.0); HEMATOCRIT 40.7 % (36.0-47.0); HEMOGLOBIN 12.7 g/dl (12.0-15.5); LYMPH # 1.7 10^3/uL (1.5-5.0); LYMPH % 29.7 % (24.0-44.0); MEAN CORPUSCULAR HEMOGLOBIN 28.9 pg (27.0-33.0); MEAN CORPUSCULAR HGB CONC 31.2 g/dl (32.0-36.5); MEAN CORPUSCULAR VOLUME 92.7 fl (80.0-96.0); MONO # 0.4 10^3/uL (0.0-0.8); MONO % 6.6 % (2.0-8.0); NEUTROPHILS # 3.1 10^3/uL (1.5-8.5); NEUTROPHILS % 54.6 % (36.0-66.0); PLATELET COUNT, AUTOMATED 232 10^3/uL (150-450); RED BLOOD COUNT 4.39 10^6/uL (4.00-5.40); WHITE BLOOD COUNT 5.6 10^3/uL (4.0-10.0)
[2022-04-30 11:07] LABS: INR 0.89; PROTHROMBIN TIME 12.2 SECONDS (12.5-14.5)
[2022-04-30 11:08] LABS: PARTIAL THROMBOPLASTIN TIME 21.7 SECONDS (24.8-34.2)
[2022-04-30 12:12] LABS: ALBUMIN 3.3 G/DL (3.2-5.2); ALKALINE PHOSPHATASE 102 U/L (46-116); ALT/SGPT 21 U/L (7.0-40); AST/SGOT 25 U/L (<34); BILIRUBIN,TOTAL 0.3 MG/DL (0.3-1.2); BLOOD UREA NITROGEN 23 MG/DL (9-23); CALCIUM LEVEL 8.9 MG/DL (8.5-10.1); CARBON DIOXIDE LEVEL 24 MMOL/L (20-31); CHLORIDE LEVEL 108 MMOL/L (98-107); FERRITIN 9.3 NG/ML (7.3-270.7); GLOMERULAR FILTRATION RATE > 60.0 (>51); GLUCOSE, FASTING 159 MG/DL (60-100); POTASSIUM SERUM 5.1 MMOL/L (3.5-5.1); PTH INTACT 51.5 PG/ML (18.5-88.0); SODIUM LEVEL 138 MMOL/L (136-145); TOTAL 25(OH) VITAMIN D 41.8 NG/ML (20.0-100.0); TOTAL PROTEIN 6.6 G/DL (5.7-8.2); VITAMIN B12 LEVEL > 2000 PG/ML (211-911)
== END ==
LOC: M PLALAB 08:11
PROVIDERS: ATTEND Family Medicine
DX: K76.0 Fatty (change of) liver, not elsewhere classified (principal); D50.9 Iron deficiency anemia, unspecified; E55.9 Vitamin D deficiency, unspecified

== ENCOUNTER → 2022-05-08 | Outpatient (CLI) | payer MEDICARE, MEDICAID | LOC: M LABSMTC 08:29 | PROVIDERS: ATTEND Anesthesiology | DX: Z20.828 Contact with and (suspected) exposure to other viral communicable diseases (principal); Z11.52 Encounter for screening for COVID-19 ==

== ENCOUNTER 2022-05-13 10:29 | Day surgery (SDC) | payer MEDICARE, MEDICAID ==
[~2022-05-13] VITALS: Ht 162.6 cm; Wt 68.5 kg
[~2022-05-13 10:29] MED LIST changes: +NS 1,000 ML IV ONE
[2022-05-13] MEDS ORDERED: LIDOCAINE 2% 100MG/5ML SDV (FOR ANES.) As Ordered ONE (12:23)
[2022-05-13] MEDS ORDERED: propofoL 200 MG/20 ML VIAL As Ordered ONE ×2 (12:23→12:29)
[2022-05-13 13:08] VITALS: BP 132/63
== END 2022-05-13 13:20 | disposition home or self-care (01) ==
LOC: M OPP 10:29
PROVIDERS: ATTEND Internal Medicine Gastroenterology
DX: K64.0 First degree hemorrhoids (principal); K22.89 Other specified disease of esophagus; K44.9 Diaphragmatic hernia without obstruction or gangrene; K21.00 Gastro-esophageal reflux disease with esophagitis, without bleeding; K74.60 Unspecified cirrhosis of liver; J44.9 Chronic obstructive pulmonary disease, unspecified; Z79.02 Long term (current) use of antithrombotics/antiplatelets; Z79.4 Long term (current) use of insulin; Z79.51 Long term (current) use of inhaled steroids; Z79.52 Long term (current) use of systemic steroids; Z79.891 Long term (current) use of opiate analgesic; Z79.899 Other long term (current) drug therapy; Z91.040 Latex allergy status; Z91.018 Allergy to other foods; Z91.048 Other nonmedicinal substance allergy status; Z87.891 Personal history of nicotine dependence

== ENCOUNTER → 2022-05-30 | Outpatient (CLI) | payer MEDICARE, MEDICAID ==
[~2022-05-30] MED LIST changes: -NS 1,000 ML IV ONE
[2022-05-30 14:47] LABS: BASO # 0.1 10^3/uL (0.0-0.2); BASO % 1.6 % (0.0-1.0); EOS # 0.3 10^3/uL (0.0-0.5); EOS % 4.3 % (0.0-3.0); HEMATOCRIT 38.2 % (36.0-47.0); LYMPH # 1.6 10^3/uL (1.5-5.0); LYMPH % 25.5 % (24.0-44.0); MEAN CORPUSCULAR HEMOGLOBIN 29.3 pg (27.0-33.0); MEAN CORPUSCULAR HGB CONC 31.4 g/dl (32.0-36.5); MEAN CORPUSCULAR VOLUME 93.2 fl (80.0-96.0); MONO # 0.4 10^3/uL (0.0-0.8); MONO % 6.4 % (2.0-8.0); NEUTROPHILS # 3.8 10^3/uL (1.5-8.5); PLATELET COUNT, AUTOMATED 344 10^3/uL (150-450); WHITE BLOOD COUNT 6.1 10^3/uL (4.0-10.0)
[2022-05-30 15:37] LABS: ALBUMIN 3.2 G/DL (3.2-5.2); ALKALINE PHOSPHATASE 98 U/L (46-116); ALT/SGPT 18 U/L (7.0-40); AST/SGOT 14 U/L (<34); BILIRUBIN,TOTAL 0.2 MG/DL (0.3-1.2); BLOOD UREA NITROGEN 17 MG/DL (9-23); CALCIUM LEVEL 8.9 MG/DL (8.5-10.1); CARBON DIOXIDE LEVEL 28 MMOL/L (20-31); CHLORIDE LEVEL 107 MMOL/L (98-107); CREATININE FOR GFR 0.71 MG/DL (0.55-1.30); FERRITIN 6.6 NG/ML (7.3-270.7); GLOMERULAR FILTRATION RATE > 60.0 (>51); GLUCOSE, FASTING 245 MG/DL (60-100); POTASSIUM SERUM 4.3 MMOL/L (3.5-5.1); SODIUM LEVEL 140 MMOL/L (136-145); TOTAL PROTEIN 6.4 G/DL (5.7-8.2)
== END ==
LOC: M PLALAB 09:13
PROVIDERS: ATTEND Physician Assistant
DX: K28.9 Gastrojejunal ulcer, unspecified as acute or chronic, without hemorrhage or perforation (principal)

== ENCOUNTER 2022-06-05 09:02 | Outpatient (CLI) | payer MEDICARE, MEDICAID ==
[~2022-06-05] VITALS: Ht 163.8 cm; Wt 69.4 kg
[~2022-06-05 09:02] MED LIST changes: +ALBUTEROL SULFATE 2.5MG/0.5ML INH NEB SOLN INH PRN; +EPINEPHrine INJ 1 MG/ML 1ML AMP IM PRN; +diphenhydrAMINE 50MG/ML VIAL IV PRN; +methylPREDNISolone 125MG 2ML VIAL IV PRN
[2022-06-05 09:24] VITALS: BP 153/73
[2022-06-05] MEDS ORDERED: NS 1,000 ML IV SCH (09:30)
[2022-06-05] MEDS ORDERED: FERRIC CARBOXYMALTOSE INJ 750 MG in NS 250 ML (>50kg) IV ONE ×3 (09:30)
[2022-06-05 10:39] VITALS: BP 149/69
== END 2022-06-05 10:40 | disposition home or self-care (01) ==
LOC: M INFU 09:02
PROVIDERS: ATTEND Physician Assistant
DX: D50.9 Iron deficiency anemia, unspecified (principal); Z91.040 Latex allergy status; Z91.02 Food additives allergy status
CPT/HCPCS: 96365; J1439

== ENCOUNTER 2022-06-12 09:35 | Outpatient (CLI) | payer MEDICARE, MEDICAID ==
[~2022-06-12] VITALS: Ht 163.8 cm; Wt 69.0 kg
[2022-06-12 09:35] VITALS: BP 155/72
[2022-06-12] MEDS ORDERED: FERRIC CARBOXYMALTOSE INJ 750 MG in NS 250 ML (>50kg) IV ONE ×3 (10:00)
[2022-06-12] MEDS ORDERED: NS 1,000 ML IV SCH (10:00)
== END 2022-06-12 11:45 | disposition home or self-care (01) ==
LOC: M INFU 09:35
PROVIDERS: ATTEND Physician Assistant
DX: D50.9 Iron deficiency anemia, unspecified (principal); Z91.040 Latex allergy status; Z91.02 Food additives allergy status; Z91.048 Other nonmedicinal substance allergy status
CPT/HCPCS: 96365; J1439

== ENCOUNTER → 2022-06-17 | Outpatient (CLI) | payer MEDICARE, MEDICAID ==
[~2022-06-17] MED LIST changes: -ALBUTEROL SULFATE 2.5MG/0.5ML INH NEB SOLN INH PRN; -EPINEPHrine INJ 1 MG/ML 1ML AMP IM PRN; +ISOVUE-370 76% 100ML VIAL As Ordered ONE; -diphenhydrAMINE 50MG/ML VIAL IV PRN; -methylPREDNISolone 125MG 2ML VIAL IV PRN
== END ==
LOC: M RAD 14:50
PROVIDERS: ATTEND Family Medicine
DX: R91.1 Solitary pulmonary nodule (principal)
CPT/HCPCS: 71260; Q9967

== ENCOUNTER → 2022-06-21 | Outpatient (CLI) | payer MEDICARE, MEDICAID ==
[~2022-06-21] MED LIST changes: -ISOVUE-370 76% 100ML VIAL As Ordered ONE
[2022-06-21 11:05] LABS: BASO # 0.1 10^3/uL (0.0-0.2); BASO % 2.1 % (0.0-1.0); EOS # 0.5 10^3/uL (0.0-0.5); EOS % 7.7 % (0.0-3.0); HEMATOCRIT 40.7 % (36.0-47.0); HEMOGLOBIN 12.7 g/dl (12.0-15.5); LYMPH # 1.8 10^3/uL (1.5-5.0); LYMPH % 29.2 % (24.0-44.0); MEAN CORPUSCULAR HEMOGLOBIN 29.2 pg (27.0-33.0); MEAN CORPUSCULAR HGB CONC 31.2 g/dl (32.0-36.5); MEAN CORPUSCULAR VOLUME 93.6 fl (80.0-96.0); MONO # 0.4 10^3/uL (0.0-0.8); MONO % 6.6 % (2.0-8.0); NEUTROPHILS # 3.3 10^3/uL (1.5-8.5); NEUTROPHILS % 54.1 % (36.0-66.0); PLATELET COUNT, AUTOMATED 342 10^3/uL (150-450); RED BLOOD COUNT 4.35 10^6/uL (4.00-5.40); WHITE BLOOD COUNT 6.1 10^3/uL (4.0-10.0)
[2022-06-21 11:43] LABS: ALBUMIN 3.7 G/DL (3.2-5.2); ALKALINE PHOSPHATASE 100 U/L (46-116); ALT/SGPT 27 U/L (7.0-40); AST/SGOT 22 U/L (<34); BILIRUBIN,TOTAL 0.3 MG/DL (0.3-1.2); BLOOD UREA NITROGEN 19 MG/DL (9-23); CALCIUM LEVEL 8.2 MG/DL (8.5-10.1); CARBON DIOXIDE LEVEL 27 MMOL/L (20-31); CHLORIDE LEVEL 106 MMOL/L (98-107); CREATININE FOR GFR 0.78 MG/DL (0.55-1.30); FERRITIN 677.4 NG/ML (7.3-270.7); GLOMERULAR FILTRATION RATE > 60.0 (>51); GLUCOSE, FASTING 190 MG/DL (60-100); SODIUM LEVEL 139 MMOL/L (136-145); TOTAL PROTEIN 6.7 G/DL (5.7-8.2)
== END ==
LOC: M PLALAB 08:10
PROVIDERS: ATTEND Family Medicine
DX: D50.9 Iron deficiency anemia, unspecified (principal)

== ENCOUNTER → 2022-06-25 | Outpatient (CLI) | payer MEDICARE, MEDICAID ==
[2022-06-25 14:00] LABS: HEMATOCRIT 41.6 % (36.0-47.0)
[2022-07-01 13:07] LABS: COPPER PLASMA 131 ug/dL (80-158); H PYLORI SERUM QUANT IGM <9.0 units (0.0-8.9); H PYLORI SERUM QUANT IgG ABY 0.14 (0.00-0.79); NICOTINAMIDE 44.6 ng/mL (5.2-72.1); NICOTINIC ACID <5.0 ng/mL (0.0-5.0); VITAMIN B1 LEVEL WHOLE BLOOD 119.1 nmol/L (66.5-200.0); VITAMIN B7 (BIOTIN) 9.78 ng/mL (0.05-0.83); ZINC PLASMA 99 ug/dL (44-115)
== END ==
LOC: M PLALAB 10:58
PROVIDERS: ATTEND Physician Assistant
DX: R11.0 Nausea (principal); R42 Dizziness and giddiness; K90.9 Intestinal malabsorption, unspecified; E63.1 Imbalance of constituents of food intake; R53.83 Other fatigue

== ENCOUNTER → 2022-09-11 | Outpatient (CLI) | payer MEDICARE, MEDICAID ==
[~2022-09-11] MED LIST changes: -AMIT25TA17 PO; +AMIT25TA19 PO; -DOXY100C81 PO; +DOXY100C82 PO
[2022-09-11 15:20] LABS: BASO # 0.1 10^3/uL (0.0-0.2); BASO % 1.4 % (0.0-1.0); EOS # 0.7 10^3/uL (0.0-0.5); EOS % 7.8 % (0.0-3.0); HEMOGLOBIN 13.5 g/dl (12.0-15.5); LYMPH # 2.5 10^3/uL (1.5-5.0); LYMPH % 28.8 % (24.0-44.0); MEAN CORPUSCULAR HEMOGLOBIN 30.1 pg (27.0-33.0); MEAN CORPUSCULAR HGB CONC 31.4 g/dl (32.0-36.5); MONO # 0.5 10^3/uL (0.0-0.8); MONO % 5.7 % (2.0-8.0); NEUTROPHILS # 4.9 10^3/uL (1.5-8.5); PLATELET COUNT, AUTOMATED 295 10^3/uL (150-450); RED BLOOD COUNT 4.48 10^6/uL (4.00-5.40); WHITE BLOOD COUNT 8.8 10^3/uL (4.0-10.0)
[2022-09-11 16:28] LABS: ALBUMIN 3.7 G/DL (3.2-5.2); ALKALINE PHOSPHATASE 99 U/L (46-116); ALT/SGPT 26 U/L (7.0-40); AST/SGOT 21 U/L (<34); BILIRUBIN,TOTAL 0.2 MG/DL (0.3-1.2); BLOOD UREA NITROGEN 18 MG/DL (9-23); CALCIUM LEVEL 9.4 MG/DL (8.5-10.1); CARBON DIOXIDE LEVEL 28 MMOL/L (20-31); CHLORIDE LEVEL 106 MMOL/L (98-107); CHOLESTEROL LEVEL 236 MG/DL (<200); CREATININE FOR GFR 0.73 MG/DL (0.55-1.30); FERRITIN 278.6 NG/ML (7.3-270.7); GLOMERULAR FILTRATION RATE > 60.0 (>51); GLUCOSE, FASTING 29 MG/DL (60-100); HDL CHOLESTEROL 94.2 MG/DL (>40); LDL CHOLESTEROL 125.8 MG/DL (<100); NON-HDL-C 141.8 MG/DL; POTASSIUM SERUM 4.6 MMOL/L (3.5-5.1); SODIUM LEVEL 140 MMOL/L (136-145); TOTAL PROTEIN 6.8 G/DL (5.7-8.2); TRIGLYCERIDES LEVEL 80 MG/DL (<150); VITAMIN B12 LEVEL 1410 PG/ML (211-911)
== END ==
LOC: M PLALAB 10:01
PROVIDERS: ATTEND Family Medicine
DX: D50.9 Iron deficiency anemia, unspecified (principal); E53.8 Deficiency of other specified B group vitamins; E10.42 Type 1 diabetes mellitus with diabetic polyneuropathy

== ENCOUNTER → 2022-10-21 | Outpatient (CLI) | payer MEDICARE, MEDICAID ==
[~2022-10-21] MED LIST changes: +LORA-1041 PO; -LORA-674 PO; -PREG75CA2 PO; +PREG75CA3 PO
== END ==
LOC: M PLAIMG 15:50
PROVIDERS: ATTEND Nurse Practitioner Adult Health
DX: S99.912D Unspecified injury of left ankle, subsequent encounter (principal)

== ENCOUNTER → 2022-11-01 | Outpatient (CLI) | payer MEDICARE, MEDICAID ==
[~2022-11-01] MED LIST changes: +ISOVUE-370 76% 100ML VIAL As Ordered ONE
== END ==
LOC: M RAD 08:08
PROVIDERS: ATTEND Family Medicine
DX: R91.1 Solitary pulmonary nodule (principal); I25.84 Coronary atherosclerosis due to calcified coronary lesion
CPT/HCPCS: 71260; Q9967

== ENCOUNTER → 2022-11-06 | Outpatient (CLI) | payer MEDICARE, MEDICAID ==
[~2022-11-06] MED LIST changes: -ISOVUE-370 76% 100ML VIAL As Ordered ONE
[2022-11-06 19:01] LABS: BASO # 0.1 10^3/uL (0.0-0.2); BASO % 1.6 % (0.0-1.0); EOS # 0.5 10^3/uL (0.0-0.5); EOS % 6.4 % (0.0-3.0); HEMATOCRIT 40.6 % (36.0-47.0); LYMPH # 2.8 10^3/uL (1.5-5.0); LYMPH % 35.8 % (24.0-44.0); MEAN CORPUSCULAR HEMOGLOBIN 31.1 pg (27.0-33.0); MEAN CORPUSCULAR VOLUME 97.1 fl (80.0-96.0); MONO # 0.4 10^3/uL (0.0-0.8); MONO % 5.2 % (2.0-8.0); NEUTROPHILS # 3.9 10^3/uL (1.5-8.5); NEUTROPHILS % 50.7 % (36.0-66.0); PLATELET COUNT, AUTOMATED 304 10^3/uL (150-450); RED BLOOD COUNT 4.18 10^6/uL (4.00-5.40); WHITE BLOOD COUNT 7.7 10^3/uL (4.0-10.0)
[2022-11-06 19:11] LABS: C REACTIVE PROTEIN QUANTITATIV < 0.40 MG/DL (<1.0)
[2022-11-06 19:12] LABS: ALBUMIN 3.7 G/DL (3.2-5.2); ALKALINE PHOSPHATASE 92 U/L (46-116); ALT/SGPT 21 U/L (7.0-40); AST/SGOT 32 U/L (<34); BILIRUBIN,TOTAL 0.2 MG/DL (0.3-1.2); BLOOD UREA NITROGEN 8 MG/DL (9-23); CARBON DIOXIDE LEVEL 30 MMOL/L (20-31); CHLORIDE LEVEL 107 MMOL/L (98-107); CREATININE FOR GFR 0.66 MG/DL (0.55-1.30); GLOMERULAR FILTRATION RATE > 60.0 (>51); GLUCOSE, FASTING 68 MG/DL (60-100); POTASSIUM SERUM 4.9 MMOL/L (3.5-5.1); SODIUM LEVEL 143 MMOL/L (136-145)
[2022-11-06 19:22] LABS: ERYTHROCYTE SEDIMENTATION RATE 22 mm/hr (0-30)
== END ==
LOC: M PLALAB 15:16
PROVIDERS: ATTEND Nurse Practitioner Family
DX: R21 Rash and other nonspecific skin eruption (principal)

== ENCOUNTER → 2022-11-11 | Outpatient (CLI) | payer MEDICARE, MEDICAID | LOC: M SOG 08:36 | PROVIDERS: ATTEND Orthopaedic Surgery | DX: M79.672 Pain in left foot (principal) ==

== ENCOUNTER → 2022-12-04 | Outpatient (CLI) | payer MEDICARE, MEDICAID | LOC: M SOG 08:06 | PROVIDERS: ATTEND Orthopaedic Surgery | DX: M79.672 Pain in left foot (principal); Z53.9 Procedure and treatment not carried out, unspecified reason ==

== ENCOUNTER → 2023-04-17 | Outpatient (CLI) | payer MEDICARE, MEDICAID ==
[~2023-04-17] MED LIST changes: +KLON0.5T8 PO
[2023-04-17 11:09] LABS: BASO # 0.1 10^3/uL (0.0-0.2); BASO % 1.9 % (0.0-1.0); EOS # 0.6 10^3/uL (0.0-0.5); EOS % 7.7 % (0.0-3.0); HEMOGLOBIN 13.4 g/dl (12.0-15.5); LYMPH # 1.9 10^3/uL (1.5-5.0); LYMPH % 25.5 % (24.0-44.0); MEAN CORPUSCULAR HEMOGLOBIN 30.5 pg (27.0-33.0); MEAN CORPUSCULAR HGB CONC 31.9 g/dl (32.0-36.5); MEAN CORPUSCULAR VOLUME 95.5 fl (80.0-96.0); MONO # 0.3 10^3/uL (0.0-0.8); MONO % 4.4 % (2.0-8.0); NEUTROPHILS # 4.4 10^3/uL (1.5-8.5); NEUTROPHILS % 60.2 % (36.0-66.0); PLATELET COUNT, AUTOMATED 310 10^3/uL (150-450); WHITE BLOOD COUNT 7.3 10^3/uL (4.0-10.0)
[2023-04-17 11:28] LABS: ALBUMIN 3.5 G/DL (3.2-5.2); ALKALINE PHOSPHATASE 80 U/L (46-116); ALT/SGPT 19 U/L (7.0-40); AST/SGOT 16 U/L (<34); BILIRUBIN,TOTAL 0.3 MG/DL (0.3-1.2); BLOOD UREA NITROGEN 13 MG/DL (9-23); CALCIUM LEVEL 8.7 MG/DL (8.5-10.1); CARBON DIOXIDE LEVEL 26 MMOL/L (20-31); CHLORIDE LEVEL 106 MMOL/L (98-107); CHOLESTEROL LEVEL 237 MG/DL (<200); CHOLESTEROL RISK RATIO 2.57 (<5); CREATININE FOR GFR 0.71 MG/DL (0.55-1.30); GLOMERULAR FILTRATION RATE > 60.0 (>51); GLUCOSE, FASTING 95 MG/DL (60-100); HDL CHOLESTEROL 92.2 MG/DL (>40); LDL CHOLESTEROL 131.4 MG/DL (<100); NON-HDL-C 144.8 MG/DL; POTASSIUM SERUM 4.5 MMOL/L (3.5-5.1); SODIUM LEVEL 137 MMOL/L (136-145); TOTAL PROTEIN 6.9 G/DL (5.7-8.2); TRIGLYCERIDES LEVEL 67 MG/DL (<150)
[2023-04-17 11:30] LABS: FERRITIN 179.7 NG/ML (7.3-270.7)
[2023-04-17 11:31] LABS: VITAMIN B12 LEVEL 1533 PG/ML (211-911)
[2023-04-17 11:58] LABS: HEMOGLOBIN A1c 7.5 % (4.0-6.0)
== END ==
LOC: M PLALAB 08:11
PROVIDERS: ATTEND Family Medicine
DX: E10.42 Type 1 diabetes mellitus with diabetic polyneuropathy (principal); K76.0 Fatty (change of) liver, not elsewhere classified; D50.9 Iron deficiency anemia, unspecified

== ENCOUNTER → 2023-04-18 | Outpatient (CLI) | payer MEDICARE, MEDICAID | LOC: M WHC 16:19 | PROVIDERS: ATTEND Family Medicine | DX: Z12.39 Encounter for other screening for malignant neoplasm of breast (principal) ==

== ENCOUNTER → 2023-04-25 | Outpatient (CLI) | payer MEDICARE, MEDICAID | LOC: M WHC 12:58 | PROVIDERS: ATTEND Family Medicine | DX: Z12.31 Encounter for screening mammogram for malignant neoplasm of breast (principal) ==

== ENCOUNTER → 2023-05-01 | Outpatient (REF) | payer MEDICARE, MEDICAID | LOC: M SFHCPLAZ 13:19 | PROVIDERS: ATTEND Physician Assistant Medical | DX: J06.9 Acute upper respiratory infection, unspecified (principal) ==

== ENCOUNTER → 2023-05-15 | Outpatient (CLI) | payer MEDICARE, MEDICAID ==
[~2023-05-15] MED LIST changes: +INDA2.5T2 PO; -INDA25TAB PO
== END ==
LOC: M WHC 08:44
PROVIDERS: ATTEND Family Medicine
DX: Z12.31 Encounter for screening mammogram for malignant neoplasm of breast (principal); N63.25 Unspecified lump in the left breast, overlapping quadrants
CPT/HCPCS: 76642; 77065; G0279

== ENCOUNTER → 2023-06-26 | Outpatient (CLI) | payer MEDICARE, MEDICAID ==
[~2023-06-26] MED LIST changes: +FERR325T3 PO; +GABA250S6 PO; +INSU100I48 SC; +IPRA0.00 INH; -LIDO5OIN19 EX; +MEMA10TA PO; +POLY17PO18 PO; -SUMA6INJ25 SC; +SUMA6PEN3 SC; +SYST1SOL4 OU
== END ==
LOC: M WHC 13:03
PROVIDERS: ATTEND Family Medicine
DX: Z53.9 Procedure and treatment not carried out, unspecified reason (principal)

== ENCOUNTER 2023-06-30 13:12 | Inpatient (IN) | payer MEDICARE, MEDICAID ==
[~2023-06-30] VITALS: Ht 162.6 cm; Wt 75.0 kg
[~2023-06-30 13:12] MED LIST changes: -FERR325T3 PO; -GABA250S6 PO; -INSU100I48 SC; -IPRA0.00 INH; -MEMA10TA PO; -POLY17PO18 PO; -SYST1SOL4 OU
[2023-06-30 15:28] LABS: ABG BASE EXCESS 0.7 (-2.0-2.0); ABG HCO3 24.3 MMOL/L (22.0-26.0); ABG O2 SATURATION 94.1 % (95.0-99.0); ABG PARTIAL PRESSURE CO2 35.5 mmHg (35.0-45.0); ABG PARTIAL PRESSURE O2 68.1 mmHg (75.0-100.0); ABG STANDARD HCO3 25.1 MMOL/L. (22.0-26.0); ABG TOTAL CO2 25.4 MMOL/L (22.0-29.0); ABG pH (ARTERIAL) 7.453 UNITS (7.350-7.450)
[2023-06-30 16:27] LABS: HEMATOCRIT 38.4 % (36.0-47.0); HEMOGLOBIN 12.6 g/dl (12.0-15.5); MEAN CORPUSCULAR HEMOGLOBIN 30.7 pg (27.0-33.0); MEAN CORPUSCULAR HGB CONC 32.8 g/dl (32.0-36.5); MEAN CORPUSCULAR VOLUME 93.4 fl (80.0-96.0); PLATELET COUNT, AUTOMATED 264 10^3/uL (150-450); RED BLOOD COUNT 4.11 10^6/uL (4.00-5.40)
[2023-06-30 16:34] LABS: CK-MB VALUE MASS < 1.0 NG/ML (<3.6)
[2023-06-30 16:37] LABS: ALBUMIN 2.9 G/DL (3.2-5.2); ALKALINE PHOSPHATASE 68 U/L (46-116); ALT/SGPT 17 U/L (7.0-40); AST/SGOT 21 U/L (<34); BILIRUBIN,DIRECT < 0.1 MG/DL (<0.4); BILIRUBIN,TOTAL 0.2 MG/DL (0.3-1.2); BLOOD UREA NITROGEN 17 MG/DL (9-23); CALCIUM LEVEL 8.6 MG/DL (8.5-10.1); CARBON DIOXIDE LEVEL 24 MMOL/L (20-31); CHLORIDE LEVEL 106 MMOL/L (98-107); CREATININE FOR GFR 0.72 MG/DL (0.55-1.30); GLOMERULAR FILTRATION RATE > 60.0 (>51); GLUCOSE, FASTING 285 MG/DL (60-100); POTASSIUM SERUM 4.4 MMOL/L (3.5-5.1); SODIUM LEVEL 140 MMOL/L (136-145); TOTAL PROTEIN 6.4 G/DL (5.7-8.2)
[2023-06-30 16:38] LABS: THYROID STIMULATING HORMONE 1.522 uIU/ML (0.55-4.78)
[2023-06-30] MEDS: ACETAMINOPHEN 325 MG TAB PO ONE (16:48)
[2023-06-30 16:54] LABS: CPK CREATINE PHOSPHOKINASE 122 U/L (34-145); MB/CK RELATIVE INDEX 0.81 (< OR =4)
[2023-06-30 17:19] LABS: ATYPICAL LYMPH 1 % (0-5); LYMPHOCYTES 3 % (16-44); MONOCYTES 1 % (0-5); NEUTROPHILS 95 % (28-66); PLATELET ESTIMATE NORMAL (NORMAL)
[2023-06-30] MEDS: IPRATROPIUM 0.5MG/ALBUTEROL 2.5MG INH SOL UD 3ML (DUONEB) NEB ONE ×2 (17:46→22:31)
[2023-06-30] MEDS ORDERED: ISOVUE-370 76% 100ML VIAL As Ordered ONE (17:46)
[2023-06-30] MEDS: ALBUTEROL SULFATE 2.5MG/0.5ML INH NEB SOLN INH ONE (17:46)
[2023-06-30 18:35] VITALS: O2SAT 96
[2023-06-30] MEDS: clonazePAM 1 MG TAB PO ONE (18:36)
[2023-06-30] MEDS: NS 1,000 ML IV ONE (19:28)
[2023-06-30] MEDS: INSULIN LISPRO (NovoLOG) PER UNIT SC STA (19:31)
[2023-06-30] MEDS: traZODone 100 MG TAB PO SCH (21:00)
[2023-06-30] MEDS ORDERED: MOM 30ML SUSPENSION UDC PO PRN (23:50)
[2023-06-30] MEDS ORDERED: COLE625T17 PO (23:53)
[2023-06-30] MEDS ORDERED: INSUDET SC (23:53)
[2023-06-30] MEDS ORDERED: FERR325T3 PO (23:53)
[2023-06-30] MEDS ORDERED: IPRA0.00 INH (23:53)
[2023-06-30] MEDS ORDERED: MEMA10TA PO (23:53)
[2023-06-30] MEDS ORDERED: POLY17PO18 PO (23:53)
[2023-06-30] MEDS ORDERED: GABA250S6 PO (23:53)
[2023-06-30] MEDS ORDERED: ONDA8TAB8 PO (23:53)
[2023-06-30] MEDS ORDERED: INSU100I48 SC (23:53)
[2023-06-30] MEDS ORDERED: ZONI100C67 PO (23:53)
[2023-06-30] MEDS ORDERED: TIZA10TA PO (23:53)
[2023-06-30] MEDS ORDERED: TRAZ-257 PO (23:53)
[2023-06-30] MEDS ORDERED: SYST1SOL4 OU (23:56)
[2023-07-01] MEDS ORDERED: HOME MED LIST COMPLETE! XX SCH
[2023-07-01] MEDS ORDERED: GLUCOSE 4 GM CHEW PO PRN (00:05)
[2023-07-01] MEDS ORDERED: GLUCAGON INJ 1MG VIAL SC PRN (00:05)
[2023-07-01] MEDS ORDERED: DEXTROSE 50% 50ML SYRINGE IV PRN (00:05)
[2023-07-01] MEDS: LEVEMIR (INSULIN DETEMIR) 1 UNITS/0.01ML SC SCH ×2 (01:05→09:08)
[2023-07-01 01:07] VITALS: BP 152/100; TEMP 97.2; O2SAT 96
[2023-07-01] MEDS: IPRATROPIUM 0.5MG/ALBUTEROL 2.5MG INH SOL UD 3ML (DUONEB) NEB SCH (01:14)
[2023-07-01] MEDS: INSULIN LISPRO (NovoLOG) PER UNIT SC STA (02:30)
[2023-07-01] MEDS: HumuLIN R (REGULAR) INSULIN (NovoLIN R) **100U/ML** PER UNIT IV STA (04:19)
[2023-07-01] MEDS ORDERED: FLUO20SO15 PO (04:43)
[2023-07-01] MEDS: tiZANidine 4 MG TAB PO SCH (05:25)
[2023-07-01] MEDS: ONDANSETRON 4MG ORAL DISINTEGRATING TAB PO SCH (05:26)
[2023-07-01 05:50] VITALS: BP 136/70; TEMP 97.7; O2SAT 93
[2023-07-01 05:58] LABS: HEMATOCRIT 36.7 % (36.0-47.0); HEMOGLOBIN 12.4 g/dl (12.0-15.5); MEAN CORPUSCULAR HEMOGLOBIN 30.5 pg (27.0-33.0); MEAN CORPUSCULAR HGB CONC 33.8 g/dl (32.0-36.5); MEAN CORPUSCULAR VOLUME 90.4 fl (80.0-96.0); PLATELET COUNT, AUTOMATED 296 10^3/uL (150-450); RED BLOOD COUNT 4.06 10^6/uL (4.00-5.40); WHITE BLOOD COUNT 9.9 10^3/uL (4.0-10.0)
[2023-07-01 06:29] LABS: ALBUMIN 2.9 G/DL (3.2-5.2); ALKALINE PHOSPHATASE 69 U/L (46-116); ALT/SGPT 18 U/L (7.0-40); AST/SGOT 18 U/L (<34); BILIRUBIN,TOTAL 0.3 MG/DL (0.3-1.2); BLOOD UREA NITROGEN 21 MG/DL (9-23); CARBON DIOXIDE LEVEL 22 MMOL/L (20-31); CHLORIDE LEVEL 105 MMOL/L (98-107); CREATININE FOR GFR 0.67 MG/DL (0.55-1.30); GLOMERULAR FILTRATION RATE > 60.0 (>51); GLUCOSE, FASTING 306 MG/DL (60-100); POTASSIUM SERUM 4.1 MMOL/L (3.5-5.1); SODIUM LEVEL 138 MMOL/L (136-145); TOTAL PROTEIN 6.4 G/DL (5.7-8.2)
[2023-07-01 06:36] LABS: PROCALCITONIN 0.47 ng/ml
[2023-07-01] MEDS: MIRALAX *UNIT DOSE* 17GM PACKET PO SCH (09:00)
[2023-07-01] MEDS: BENZONATATE 100MG CAPSULE PO PRN (09:05)
[2023-07-01] MEDS: METOCLOPRAMIDE 10MG TAB PO SCH (09:06)
[2023-07-01] MEDS: FUROSEMIDE 20 MG TAB PO SCH (09:06)
[2023-07-01] MEDS: ZONISAMIDE 100 MG CAP (ZONEGRAN) PO SCH (09:06)
[2023-07-01] MEDS: GABAPENTIN 100 MG CAP PO SCH (09:06)
[2023-07-01] MEDS: VARENICLINE 1MG TABLET PO SCH (09:06)
[2023-07-01] MEDS: GABAPENTIN 400MG CAP PO SCH (09:06)
[2023-07-01] MEDS: FERROUS SULFATE 325MG TAB PO SCH (09:06)
[2023-07-01] MEDS: methocarbamoL 500 MG TAB PO SCH (09:06)
[2023-07-01] MEDS: FLUoxetine 20MG CAP PO SCH (09:07)
[2023-07-01] MEDS: COLESEVELAM 625 MG TAB (WELCHOL) PO SCH (09:07)
[2023-07-01] MEDS: clonazePAM 1 MG TAB PO SCH (09:07)
[2023-07-01] MEDS: OMEPRAZOLE 20MG CAP PO SCH (09:07)
[2023-07-01] MEDS: MEMANTINE 5MG TABLET (NAMENDA) PO SCH (09:07)
[2023-07-01] MEDS: ATORVASTATIN 20 MG TAB PO SCH (09:08)
[2023-07-01] MEDS: INSULIN LISPRO (NovoLOG) PER UNIT SC SCH ×2 (09:08→21:13)
[2023-07-01] MEDS: SUCRALFATE SUSP 1GM/10ML UD PO SCH (09:08)
[2023-07-01] MEDS: ENOXAPARIN 40MG/0.4ML SYRINGE (J1650 PER 10MG) SC SCH (09:09)
[2023-07-01] MEDS: LIDOCAINE 5% OINT 30GM TUBE TOP SCH (09:10)
[2023-07-01] MEDS: ALBUTEROL SULFATE 2.5MG/0.5ML INH NEB SOLN NEB PRN (09:24)
[2023-07-01] MEDS: predniSONE 20 MG TAB PO SCH (11:25)
[2023-07-01] MEDS: AZITHROMYCIN 250MG TABLET PO SCH (11:25)
[2023-07-01] MEDS: cefTRIAXone SOD 1 GM in D5W MINI-BAG PLUS 50 ML IV SCH (12:02)
[2023-07-01] MEDS: ADVAIR HFA 45/21MCG INHALER INH SCH (12:59)
[2023-07-01 14:00] VITALS: BP 119/76; TEMP 96.8; O2SAT 97
[2023-07-01] MEDS: ACETAMINOPHEN TAB 650MG DOSE (2X325MG) PO PRN (16:47)
[2023-07-01 20:00] VITALS: BP 118/77; TEMP 97.7; O2SAT 93
[2023-07-01] MEDS ORDERED: VENLAFAXINE 25 MG TAB PO SCH (21:00)
[2023-07-02] MEDS: RAMELTEON 8 MG TAB (ROZEREM) PO PRN (01:12)
[2023-07-02 05:19] VITALS: BP 122/61; TEMP 97.9; O2SAT 95
[2023-07-02] MEDS: LEVEMIR (INSULIN DETEMIR) 1 UNITS/0.01ML SC SCH (08:36)
[2023-07-02] MEDS ORDERED: PRED10TA2 PO (14:03)
[2023-07-02] MEDS ORDERED: ADV100INH INH (14:03)
[2023-07-02] MEDS ORDERED: INSU100I48 SC (14:03)
[2023-07-02] MEDS ORDERED: LEVO750T14 PO (14:03)
[2023-07-02] MEDS ORDERED: MUCI600T31 PO (14:03)
[2023-07-02] MEDS ORDERED: IPRA0.00 INH (18:03)
== END 2023-07-02 15:51 | disposition home or self-care (01) | DRG 194 ==
LOC: M ED 13:12 → M ED INP 23:47 → M MSPAV 07-01 00:57
PROVIDERS: ADMIT Internal Medicine; ATTEND Internal Medicine
DX: J12.3 Human metapneumovirus pneumonia (principal); I50.30 Unspecified diastolic (congestive) heart failure; J45.901 Unspecified asthma with (acute) exacerbation; K90.41 Non-celiac gluten sensitivity; K21.9 Gastro-esophageal reflux disease without esophagitis; I11.0 Hypertensive heart disease with heart failure; E10.65 Type 1 diabetes mellitus with hyperglycemia; E10.42 Type 1 diabetes mellitus with diabetic polyneuropathy; E10.51 Type 1 diabetes mellitus with diabetic peripheral angiopathy without gangrene; E78.5 Hyperlipidemia, unspecified; Z87.891 Personal history of nicotine dependence; F03.90 Unspecified dementia, unspecified severity, without behavioral disturbance, psychotic disturbance, mood disturbance, and anxiety; Z91.040 Latex allergy status; Z79.899 Other long term (current) drug therapy; Z79.4 Long term (current) use of insulin; G47.33 Obstructive sleep apnea (adult) (pediatric); F41.9 Anxiety disorder, unspecified; F32.A Depression, unspecified; Z86.73 Personal history of transient ischemic attack (TIA), and cerebral infarction without residual deficits

== ENCOUNTER → 2023-07-16 | Outpatient (CLI) | payer MEDICARE, MEDICAID ==
[~2023-07-16] MED LIST changes: +ADV100INH INH; +FERR325T3 PO; +FLUO-365 PO; -FLUO20CA22 PO; +FLUO20SO15 PO; +GABA250S6 PO; +INSU100I48 SC; +IPRA0.00 INH; +LEVO750T14 PO; +MEMA10TA PO; +MUCI600T31 PO; +ONDA-282 PO; +ONDA-282 SL; +ONDA-284 PO; -ONDA4TAB6 PO; -ONDA4TAB6 SL; -ONDA8TAB8 PO; +POLY17PO18 PO; +PRED10TA2 PO; +SYST1SOL4 OU
[2023-07-16 18:25] LABS: BASO # 0.1 10^3/uL (0.0-0.2); BASO % 1.5 % (0.0-1.0); EOS # 0.2 10^3/uL (0.0-0.5); EOS % 2.3 % (0.0-3.0); HEMATOCRIT 40.3 % (36.0-47.0); HEMOGLOBIN 12.6 g/dl (12.0-15.5); LYMPH # 2.4 10^3/uL (1.5-5.0); LYMPH % 31.2 % (24.0-44.0); MEAN CORPUSCULAR HEMOGLOBIN 30.4 pg (27.0-33.0); MEAN CORPUSCULAR HGB CONC 31.3 g/dl (32.0-36.5); MEAN CORPUSCULAR VOLUME 97.3 fl (80.0-96.0); MONO # 0.5 10^3/uL (0.0-0.8); NEUTROPHILS # 4.6 10^3/uL (1.5-8.5); NEUTROPHILS % 58.7 % (36.0-66.0); PLATELET COUNT, AUTOMATED 390 10^3/uL (150-450); RED BLOOD COUNT 4.14 10^6/uL (4.00-5.40); WHITE BLOOD COUNT 7.8 10^3/uL (4.0-10.0)
[2023-07-16 18:58] LABS: ALBUMIN 3.2 G/DL (3.2-5.2); ALKALINE PHOSPHATASE 71 U/L (46-116); ALT/SGPT 20 U/L (7.0-40); AST/SGOT 10 U/L (<34); BILIRUBIN,TOTAL 0.3 MG/DL (0.3-1.2); BLOOD UREA NITROGEN 22 MG/DL (9-23); CALCIUM LEVEL 9.2 MG/DL (8.5-10.1); CARBON DIOXIDE LEVEL 26 MMOL/L (20-31); CHLORIDE LEVEL 108 MMOL/L (98-107); CREATININE FOR GFR 0.72 MG/DL (0.55-1.30); GLOMERULAR FILTRATION RATE > 60.0 (>51); GLUCOSE, FASTING 163 MG/DL (60-100); POTASSIUM SERUM 5.1 MMOL/L (3.5-5.1); SODIUM LEVEL 142 MMOL/L (136-145); TOTAL PROTEIN 6.5 G/DL (5.7-8.2)
== END ==
LOC: M PLALAB 15:00
PROVIDERS: ATTEND Physician Assistant Medical
DX: Z09 Encounter for follow-up examination after completed treatment for conditions other than malignant neoplasm (principal); J15.9 Unspecified bacterial pneumonia

== ENCOUNTER → 2023-08-11 | Outpatient (REF) | payer MEDICARE, MEDICAID | LOC: M SFHCPLAZ 16:12 | PROVIDERS: ATTEND Family Medicine | DX: D50.9 Iron deficiency anemia, unspecified (principal); E55.9 Vitamin D deficiency, unspecified; E78.2 Mixed hyperlipidemia ==

== ENCOUNTER → 2023-09-03 | Outpatient (CLI) | payer MEDICARE, MEDICAID | LOC: M PLAIMG 12:21 | PROVIDERS: ATTEND Family Medicine | DX: I50.32 Chronic diastolic (congestive) heart failure (principal); I27.20 Pulmonary hypertension, unspecified; I08.2 Rheumatic disorders of both aortic and tricuspid valves ==

== ENCOUNTER → 2023-09-08 | Outpatient (CLI) | payer MEDICARE, MEDICAID ==
[2023-09-08 11:32] LABS: BASO # 0.1 10^3/uL (0.0-0.2); EOS # 0.2 10^3/uL (0.0-0.5); EOS % 4.2 % (0.0-3.0); HEMATOCRIT 42.5 % (36.0-47.0); HEMOGLOBIN 13.5 g/dl (12.0-15.5); LYMPH # 1.4 10^3/uL (1.5-5.0); LYMPH % 26.9 % (24.0-44.0); MEAN CORPUSCULAR HEMOGLOBIN 30.7 pg (27.0-33.0); MEAN CORPUSCULAR HGB CONC 31.8 g/dl (32.0-36.5); MEAN CORPUSCULAR VOLUME 96.6 fl (80.0-96.0); MONO # 0.3 10^3/uL (0.0-0.8); MONO % 6.6 % (2.0-8.0); NEUTROPHILS % 60.1 % (36.0-66.0); PLATELET COUNT, AUTOMATED 303 10^3/uL (150-450)
[2023-09-08 12:02] LABS: FREE T4 0.95 NG/DL (0.89-1.76)
[2023-09-08 12:03] LABS: ALBUMIN 3.5 G/DL (3.2-5.2); ALKALINE PHOSPHATASE 79 U/L (46-116); ALT/SGPT 22 U/L (7.0-40); AST/SGOT 16 U/L (<34); BILIRUBIN,TOTAL 0.4 MG/DL (0.3-1.2); BLOOD UREA NITROGEN 9 MG/DL (9-23); CARBON DIOXIDE LEVEL 26 MMOL/L (20-31); CHLORIDE LEVEL 110 MMOL/L (98-107); CHOLESTEROL LEVEL 181 MG/DL (<200); CHOLESTEROL RISK RATIO 2.35 (<5); FERRITIN 138.3 NG/ML (7.3-270.7); GLOMERULAR FILTRATION RATE > 60.0 (>51); GLUCOSE, FASTING 104 MG/DL (60-100); HDL CHOLESTEROL 76.9 MG/DL (>40); LDL CHOLESTEROL 91.7 MG/DL (<100); NON-HDL-C 104.1 MG/DL; POTASSIUM SERUM 4.8 MMOL/L (3.5-5.1); PTH INTACT 68.8 PG/ML (18.5-88.0); SODIUM LEVEL 141 MMOL/L (136-145); TOTAL 25(OH) VITAMIN D 62.3 NG/ML (20.0-100.0); TOTAL PROTEIN 6.3 G/DL (5.7-8.2); TRIGLYCERIDES LEVEL 62 MG/DL (<150)
[2023-09-16 11:42] LABS: SOLUBLE TRANSFERRIN RECEPTOR 1.38 mg/L (0.76-1.76)
== END ==
LOC: M PLALAB 08:13
PROVIDERS: ATTEND Family Medicine
DX: E55.9 Vitamin D deficiency, unspecified (principal); D50.9 Iron deficiency anemia, unspecified; E78.2 Mixed hyperlipidemia; K76.0 Fatty (change of) liver, not elsewhere classified

== ENCOUNTER 2023-10-29 07:47 | Emergency (ER) | payer MEDICAID, MEDICARE, OTHER ==
[~2023-10-29] VITALS: Ht 162.6 cm; Wt 73.0 kg
[~2023-10-29 07:47] MED LIST changes: +GABA-1490 PO; -GABA600T4 PO
[2023-10-29] MEDS: ONDANSETRON 4MG 2ML VIAL IV ONE (09:31)
[2023-10-29] MEDS: ACETAMINOPHEN TAB 650MG DOSE (2X325MG) PO ONE (09:45)
[2023-10-29] MEDS: DEXTROSE 50% 50ML SYRINGE IV STA (09:45)
[2023-10-29 10:03] LABS: ALBUMIN 3.8 G/DL (3.2-5.2); ALKALINE PHOSPHATASE 94 U/L (46-116); ALT/SGPT 34 U/L (7.0-40); AST/SGOT 24 U/L (<34); BILIRUBIN,DIRECT < 0.1 MG/DL (<0.4); BILIRUBIN,TOTAL 0.3 MG/DL (0.3-1.2); BLOOD UREA NITROGEN 14 MG/DL (9-23); CALCIUM LEVEL 9.2 MG/DL (8.5-10.1); CARBON DIOXIDE LEVEL 29 MMOL/L (20-31); CHLORIDE LEVEL 109 MMOL/L (98-107); GLOMERULAR FILTRATION RATE > 60.0 (>51); GLUCOSE, FASTING 54 MG/DL (60-100); POTASSIUM SERUM 3.8 MMOL/L (3.5-5.1); SODIUM LEVEL 144 MMOL/L (136-145); TOTAL PROTEIN 7.1 G/DL (5.7-8.2)
[2023-10-29 11:01] LABS: BASO # 0.1 10^3/uL (0.0-0.2); BASO % 0.5 % (0.0-1.0); EOS % 0.3 % (0.0-3.0); LYMPH # 0.7 10^3/uL (1.5-5.0); MEAN CORPUSCULAR HEMOGLOBIN 30.4 pg (27.0-33.0); MEAN CORPUSCULAR HGB CONC 32.5 g/dl (32.0-36.5); MEAN CORPUSCULAR VOLUME 93.5 fl (80.0-96.0); MONO # 0.3 10^3/uL (0.0-0.8); MONO % 2.6 % (2.0-8.0); NEUTROPHILS # 10.7 10^3/uL (1.5-8.5); PLATELET COUNT, AUTOMATED 275 10^3/uL (150-450); RED BLOOD COUNT 4.28 10^6/uL (4.00-5.40); WHITE BLOOD COUNT 11.9 10^3/uL (4.0-10.0)
[2023-10-29 11:17] LABS: HEMOGLOBIN A1c 7.3 % (4.0-6.0)
[2023-10-29] MEDS ORDERED: THERTAB52 PO (11:23)
[2023-10-29] MEDS ORDERED: INSU100I48 SQ (11:23)
[2023-10-29] MEDS ORDERED: FLUT1INH INH (11:24)
[2023-10-29] MEDS ORDERED: CREO12CA PO (11:24)
[2023-10-29] MEDS ORDERED: HOME MED LIST COMPLETE! XX SCH (11:30)
[2023-10-29] MEDS: METOCLOPRAMIDE INJ 10MG/2ML VIAL IV ONE (12:40)
[2023-10-29] MEDS: KETOROLAC 30 MG/ML 1ML VIAL IV ONE (12:40)
[2023-10-29 16:45] VITALS: BP 136/80; TEMP 100; O2SAT 96
== END 2023-10-29 16:54 | disposition home or self-care (01) ==
LOC: M ED 07:47 → EDBD 07:47 → M ED 16:54
DX: E10.649 Type 1 diabetes mellitus with hypoglycemia without coma (principal); I10 Essential (primary) hypertension; E78.5 Hyperlipidemia, unspecified; K21.9 Gastro-esophageal reflux disease without esophagitis; G47.33 Obstructive sleep apnea (adult) (pediatric); Z98.84 Bariatric surgery status; Z86.73 Personal history of transient ischemic attack (TIA), and cerebral infarction without residual deficits; Z87.891 Personal history of nicotine dependence; Z91.040 Latex allergy status; Z91.02 Food additives allergy status; Z91.048 Other nonmedicinal substance allergy status; Z79.52 Long term (current) use of systemic steroids; Z79.02 Long term (current) use of antithrombotics/antiplatelets; Z79.899 Other long term (current) drug therapy
CPT/HCPCS: 80048; 80076; 83036; 83605; 85025; 93041; 96374; 96375; 99285; J1885; J2405; J2765

== ENCOUNTER → 2023-11-03 | Outpatient (CLI) | payer MEDICARE, MEDICAID ==
[~2023-11-03] MED LIST changes: +CREO12CA PO; +FLUT1INH INH; +INSU100I48 SQ; +THERTAB52 PO
== END ==
LOC: M RAD 08:43
PROVIDERS: ATTEND Physician Assistant
DX: J98.4 Other disorders of lung (principal)

== ENCOUNTER → 2023-12-09 | Outpatient (CLI) | payer MEDICARE, MEDICAID ==
[~2023-12-09] MED LIST changes: +GABA-1172 PO; -GABA-282 PO
[2023-12-09 11:23] LABS: BASO % 0.4 % (0.0-1.0); EOS % 0.2 % (0.0-3.0); HEMOGLOBIN 12.6 g/dl (12.0-15.5); LYMPH # 0.5 10^3/uL (1.5-5.0); LYMPH % 5.8 % (24.0-44.0); MEAN CORPUSCULAR HEMOGLOBIN 30.3 pg (27.0-33.0); MEAN CORPUSCULAR HGB CONC 32.3 g/dl (32.0-36.5); MEAN CORPUSCULAR VOLUME 93.8 fl (80.0-96.0); MONO # 0.6 10^3/uL (0.0-0.8); NEUTROPHILS % 86.4 % (36.0-66.0); PLATELET COUNT, AUTOMATED 265 10^3/uL (150-450); RED BLOOD COUNT 4.16 10^6/uL (4.00-5.40); WHITE BLOOD COUNT 8.1 10^3/uL (4.0-10.0)
[2023-12-09 11:47] LABS: ALBUMIN 3.1 G/DL (3.2-5.2); ALKALINE PHOSPHATASE 62 U/L (35-104); ALT/SGPT 17 U/L (7.0-40); AST/SGOT 15 U/L (<34); BILIRUBIN,TOTAL 0.5 MG/DL (0.3-1.2); BLOOD UREA NITROGEN 13 MG/DL (9-23); CALCIUM LEVEL 9.3 MG/DL (8.3-10.6); CARBON DIOXIDE LEVEL 26 MMOL/L (20-31); CHLORIDE LEVEL 109 MMOL/L (98-107); CREATININE FOR GFR 0.85 MG/DL (0.55-1.30); GLOMERULAR FILTRATION RATE > 60.0 (>45); GLUCOSE, FASTING 134 MG/DL (74-106); MAGNESIUM LEVEL 1.7 MG/DL (1.8-2.4); POTASSIUM SERUM 4.2 MMOL/L (3.5-5.1); SODIUM LEVEL 139 MMOL/L (136-145); TOTAL PROTEIN 6.3 G/DL (5.7-8.2)
[2023-12-09 11:49] LABS: FERRITIN 163.8 NG/ML (7.3-270.7); FREE T4 0.89 NG/DL (0.89-1.76); THYROID STIMULATING HORMONE 0.943 uIU/ML (0.55-4.78)
[2023-12-09 11:53] LABS: IMMUNOGLOBULIN E 12.8 IU/ML (0-378)
[2023-12-09 11:56] LABS: CREATININE, URINE 211.7 MG/DL; MALB URINE SIEMENS < 3.0 MG/L; MAU/CREAT RATIO 1.4 MCG/MG (0.0-30.0)
[2023-12-10 14:06] LABS: BERMUDA GRASS IGE < 0.10 kU/L (<0.10); BIRCH IGE < 0.10 kU/L (<0.10); COMMON RAGWEED SHORT IGE < 0.10 kU/L (<0.10); D001 IGE D PTERONYSSINUS < 0.10 kU/L (<0.10); D002-IGE D FARINAE < 0.10 kU/L (<0.10); E001-IGE CAT DANDER 0.87 kU/L (<0.10); E005-IGE DOG DANDER 0.13 kU/L (<0.10); ELM IGE < 0.10 kU/L (<0.10); I006 IGE COCKROACH < 0.10 kU/L (<0.10); IMMUNOGLOBULIN E FOR ALLERGENS 15 kU/L (<OR=114); M002 IGE CLADOSPORIUM HERBARU < 0.10 kU/L (<0.10); M003 IGE ASPERGILLUS FUMIGATU < 0.10 kU/L (<0.10); M006 IGE ALTERNIA ALTERNATA 0.39 kU/L (<0.10); M1-PENICILLIUM NOTATUM < 0.10 kU/L (<0.10); MOUSE URINE IGE < 0.10 kU/L (<0.10); MUGWORT IGE < 0.10 kU/L (<0.10); OAK IGE < 0.10 kU/L (<0.10); ROUGH PIGWEED IGE < 0.10 kU/L (<0.10); SHEEP SORREL IGE < 0.10 kU/L (<0.10); SYCAMORE IGE < 0.10 kU/L (<0.10); T001-IGE MAPLE BOX ELDER < 0.10 kU/L (<0.10); T006-IGE MOUNTAIN CEDAR < 0.10 kU/L (<0.10); T014 COTTONWOOD IGE < 0.10 kU/L (<0.10); TIMOTHY GRASS IGE < 0.10 kU/L (<0.10); WALNUT TREE IGE < 0.10 kU/L (<0.10); WHITE ASH IGE < 0.10 kU/L (<0.10); WHITE MULBERRY IGE < 0.10 kU/L (<0.10)
[2023-12-11 02:57] LABS: TISSUE TRANSGLUTAMINASE IgA 33.6 U/mL (<15.0)
[2023-12-11 03:32] LABS: E101-IgE Can f 1 < 0.10 kU/L (<0.10); E102-IgE Can f 2 < 0.10 kU/L (<0.10); E226 IgE Can f 5 < 0.10 kU/L (<0.10); E228-IgE Fel d 4 < 0.10 kU/L (<0.10); E229 IGE CAN F 4 < 0.10 kU/L (<0.10); E230 IGE CAN F 6 < 0.10 kU/L (<0.10); E231 IGE FEL D 7 < 0.10 kU/L (<0.10)
== END ==
LOC: M PLALAB 08:09
PROVIDERS: ATTEND Family Medicine
DX: E10.42 Type 1 diabetes mellitus with diabetic polyneuropathy (principal); I50.32 Chronic diastolic (congestive) heart failure; D50.9 Iron deficiency anemia, unspecified; E78.2 Mixed hyperlipidemia; J30.9 Allergic rhinitis, unspecified; K90.0 Celiac disease

== ENCOUNTER → 2023-12-12 | Outpatient (CLI) | payer MEDICARE, MEDICAID ==
[~2023-12-12] MED LIST changes: +AMOX875T2 PO; +ATOR-398 PO; +BENZ200C70 PO; -LEVO750T14 PO; +LEVO75TAB PO
== END ==
LOC: M PLAIMG 15:53
DX: J40 Bronchitis, not specified as acute or chronic (principal); R91.8 Other nonspecific abnormal finding of lung field

== ENCOUNTER → 2023-12-12 | Outpatient (REF) | payer MEDICARE, MEDICAID ==
[~2023-12-12] MED LIST changes: -AMOX875T2 PO; -ATOR-398 PO; -BENZ200C70 PO; +LEVO750T14 PO; -LEVO75TAB PO
== END ==
LOC: M SFHCPLAZ 15:39
DX: J40 Bronchitis, not specified as acute or chronic (principal); Z53.9 Procedure and treatment not carried out, unspecified reason

== ENCOUNTER → 2023-12-13 | Outpatient (REF) | payer MEDICARE, MEDICAID | LOC: M LAB REF 04:35 | DX: J40 Bronchitis, not specified as acute or chronic (principal) ==

== ENCOUNTER 2023-12-23 09:54 | Emergency (ER) | payer MEDICARE, MEDICAID ==
[~2023-12-23] VITALS: Ht 162.6 cm; Wt 72.8 kg
[~2023-12-23 09:54] MED LIST changes: +ATOR-398 PO; -LEVO750T14 PO; +LEVO75TAB PO
[2023-12-23 10:05] VITALS: BP 140/64; O2SAT 97
[2023-12-23] MEDS: cefTRIAXone SOD 1 GM in DEXTROSE 5% (D5W) ADV/MINI-BAG 50 ML IV ONE (13:33)
[2023-12-23] MEDS: AZITHROMYCIN 250MG TABLET PO ONE (13:33)
[2023-12-23 13:38] LABS: BASO # 0.1 10^3/uL (0.0-0.2); BASO % 1.1 % (0.0-1.0); EOS # 0.2 10^3/uL (0.0-0.5); EOS % 1.5 % (0.0-3.0); HEMATOCRIT 35.3 % (36.0-47.0); HEMOGLOBIN 11.3 g/dl (12.0-15.5); LYMPH # 2.2 10^3/uL (1.5-5.0); LYMPH % 19.4 % (24.0-44.0); MEAN CORPUSCULAR HEMOGLOBIN 30.3 pg (27.0-33.0); MEAN CORPUSCULAR VOLUME 94.6 fl (80.0-96.0); MONO # 0.8 10^3/uL (0.0-0.8); NEUTROPHILS % 70.6 % (36.0-66.0); PLATELET COUNT, AUTOMATED 751 10^3/uL (150-450); RED BLOOD COUNT 3.73 10^6/uL (4.00-5.40); WHITE BLOOD COUNT 11.4 10^3/uL (4.0-10.0)
[2023-12-23 14:04] LABS: BLOOD UREA NITROGEN 10 MG/DL (9-23); CALCIUM LEVEL 8.9 MG/DL (8.3-10.6); CARBON DIOXIDE LEVEL 28 MMOL/L (20-31); CHLORIDE LEVEL 103 MMOL/L (98-107); CREATININE FOR GFR 0.64 MG/DL (0.55-1.30); GLOMERULAR FILTRATION RATE > 60.0 (>45); GLUCOSE, FASTING 178 MG/DL (74-106); POTASSIUM SERUM 4.1 MMOL/L (3.5-5.1); SODIUM LEVEL 137 MMOL/L (136-145)
[2023-12-23] MEDS: ACETAMINOPHEN 325 MG TAB PO ONE (14:18)
[2023-12-23 14:20] VITALS: TEMP 101.4
[2023-12-23] MEDS: ALBUTEROL SULFATE 2.5MG/0.5ML INH NEB SOLN NEB ONE (14:30)
[2023-12-23] MEDS ORDERED: BENZ200C70 PO (14:58)
[2023-12-23] MEDS ORDERED: AMOX875T2 PO (14:58)
== END 2023-12-23 15:12 | disposition home or self-care (01) ==
LOC: M ED 09:54
DX: J18.9 Pneumonia, unspecified organism (principal); E11.9 Type 2 diabetes mellitus without complications; I10 Essential (primary) hypertension; Z98.84 Bariatric surgery status; Z90.49 Acquired absence of other specified parts of digestive tract; Z86.73 Personal history of transient ischemic attack (TIA), and cerebral infarction without residual deficits; Z87.891 Personal history of nicotine dependence; Z91.02 Food additives allergy status; Z91.040 Latex allergy status; Z79.52 Long term (current) use of systemic steroids; Z79.02 Long term (current) use of antithrombotics/antiplatelets; Z79.4 Long term (current) use of insulin; Z79.899 Other long term (current) drug therapy; Z79.2 Long term (current) use of antibiotics
CPT/HCPCS: 71046; 80048; 84145; 85025; 87486; 87581; 87633; 87798; 94640; 94760; 96365; 99284; J0696

== ENCOUNTER 2024-01-21 09:27 | Day surgery (SDC) | payer MEDICAID, MEDICARE ==
[~2024-01-21] VITALS: Ht 162.6 cm; Wt 71.9 kg
[~2024-01-21 09:27] MED LIST changes: -ADV100INH INH; +ADVA1AER8 INH; +AMOX875T2 PO; +BENZ200C70 PO; +FLUT1BLS8; +FLUTISP; +INSU100I24; +MIDAZOLAM INJ 2MG/2ML VIAL As Ordered ONE; +PHENYLEPHRINE 10% OPHTH SOL 5ML OS PRN; +TRAZ150T90 PO; +TRES1INJ2 SQ
[2024-01-21] MEDS: OFLOXACIN 0.3 % (OCUFLOX) OPTH SOL 5ML OS ONE (10:30)
[2024-01-21] MEDS: LIDOCAINE 3.5 % 1ML OPHTH TOPICAL GEL OU ONE (10:30)
[2024-01-21] MEDS: CYCLOPENTOLATE 1% OPHTH SOLN 2ML BTL OS SCH (11:29)
[2024-01-21] MEDS: PHENYLEPHRINE 2.5% OPHTH SOL 2ML OS SCH (11:29)
[2024-01-21] MEDS: TROPICAMIDE 1% OPHTH SOLN 15ML OS SCH (11:29)
[2024-01-21] MEDS: CEFUROXIME 1MG/0.1ML INTRACAMERAL INJ As Ordered ONE (11:41)
[2024-01-21] MEDS: BSS IRRIG/VANCO(10MG)/TOBRA(5MG)/EPINEPH(1:1000-0.5CC)500ML BAG-ORONLY As Ordered ONE (11:41)
[2024-01-21] MEDS: LIDOCAINE 1% SDV 5ML VIAL As Ordered ONE (11:41)
[2024-01-21 11:55] VITALS: BP 138/62; TEMP 97.9; O2SAT 97
== END 2024-01-21 12:23 | disposition home or self-care (01) ==
LOC: M SDC 09:27
PROVIDERS: ATTEND Ophthalmology
DX: E10.36 Type 1 diabetes mellitus with diabetic cataract (principal); H25.12 Age-related nuclear cataract, left eye; J44.89 Other specified chronic obstructive pulmonary disease; E78.00 Pure hypercholesterolemia, unspecified; Z79.899 Other long term (current) drug therapy; Z79.4 Long term (current) use of insulin; Z79.85 Long-term (current) use of injectable non-insulin antidiabetic drugs; K90.0 Celiac disease; F17.290 Nicotine dependence, other tobacco product, uncomplicated; Z86.73 Personal history of transient ischemic attack (TIA), and cerebral infarction without residual deficits; Z90.710 Acquired absence of both cervix and uterus; Z90.49 Acquired absence of other specified parts of digestive tract
CPT/HCPCS: 66984; J0697; J2250; V2632

== ENCOUNTER 2024-01-28 05:54 | Day surgery (SDC) | payer MEDICAID, MEDICARE ==
[~2024-01-28] VITALS: Ht 162.6 cm; Wt 72.6 kg
[~2024-01-28 05:54] MED LIST changes: -MIDAZOLAM INJ 2MG/2ML VIAL As Ordered ONE; -PHENYLEPHRINE 10% OPHTH SOL 5ML OS PRN
[2024-01-28] MEDS ORDERED: PHENYLEPHRINE 10% OPHTH SOL 5ML OD PRN (06:00)
[2024-01-28] MEDS: PHENYLEPHRINE 2.5% OPHTH SOL 2ML OD SCH (06:37)
[2024-01-28] MEDS: OFLOXACIN 0.3 % (OCUFLOX) OPTH SOL 5ML OD ONE (06:37)
[2024-01-28] MEDS: CYCLOPENTOLATE 1% OPHTH SOLN 2ML BTL OD SCH (06:37)
[2024-01-28] MEDS: TROPICAMIDE 1% OPHTH SOLN 15ML OD SCH (06:37)
[2024-01-28] MEDS: LIDOCAINE 3.5 % 1ML OPHTH TOPICAL GEL OU ONE (06:38)
[2024-01-28] MEDS ORDERED: fentaNYL 100 MCG/2 ML INJECTION As Ordered ONE (06:56)
[2024-01-28] MEDS ORDERED: MIDAZOLAM INJ 2MG/2ML VIAL As Ordered ONE (06:56)
[2024-01-28] MEDS: LIDOCAINE 1% SDV 5ML VIAL As Ordered ONE (08:02)
[2024-01-28] MEDS: BSS IRRIG/VANCO(10MG)/TOBRA(5MG)/EPINEPH(1:1000-0.5CC)500ML BAG-ORONLY As Ordered ONE (08:02)
[2024-01-28] MEDS: CEFUROXIME 1MG/0.1ML INTRACAMERAL INJ As Ordered ONE (08:02)
[2024-01-28 08:09] VITALS: BP 128/58; TEMP 97.6; O2SAT 98
== END 2024-01-28 08:28 | disposition home or self-care (01) ==
LOC: M SDC 05:54
PROVIDERS: ATTEND Ophthalmology
DX: E10.36 Type 1 diabetes mellitus with diabetic cataract (principal); H25.11 Age-related nuclear cataract, right eye; J44.89 Other specified chronic obstructive pulmonary disease; E78.00 Pure hypercholesterolemia, unspecified; K21.9 Gastro-esophageal reflux disease without esophagitis; Z79.899 Other long term (current) drug therapy; Z79.51 Long term (current) use of inhaled steroids; Z79.4 Long term (current) use of insulin; Z98.84 Bariatric surgery status; F17.290 Nicotine dependence, other tobacco product, uncomplicated; Z86.73 Personal history of transient ischemic attack (TIA), and cerebral infarction without residual deficits; Z91.040 Latex allergy status; Z91.048 Other nonmedicinal substance allergy status; Z90.710 Acquired absence of both cervix and uterus; Z90.49 Acquired absence of other specified parts of digestive tract
CPT/HCPCS: 66984; J0697; J2250; J3010; V2632

== ENCOUNTER → 2024-02-19 | Outpatient (CLI) | payer MEDICARE, MEDICAID ==
[2024-02-19 14:32] LABS: BASO # 0.1 10^3/uL (0.0-0.2); BASO % 2.1 % (0.0-1.0); EOS # 0.3 10^3/uL (0.0-0.5); EOS % 4.9 % (0.0-3.0); HEMATOCRIT 43.9 % (36.0-47.0); LYMPH # 2.2 10^3/uL (1.5-5.0); LYMPH % 33.1 % (24.0-44.0); MEAN CORPUSCULAR HGB CONC 31.9 g/dl (32.0-36.5); MEAN CORPUSCULAR VOLUME 94.2 fl (80.0-96.0); MONO # 0.4 10^3/uL (0.0-0.8); MONO % 5.9 % (2.0-8.0); NEUTROPHILS # 3.6 10^3/uL (1.5-8.5); NEUTROPHILS % 53.8 % (36.0-66.0); PLATELET COUNT, AUTOMATED 332 10^3/uL (150-450); RED BLOOD COUNT 4.66 10^6/uL (4.00-5.40); WHITE BLOOD COUNT 6.6 10^3/uL (4.0-10.0)
[2024-02-19 14:58] LABS: ALBUMIN 3.9 G/DL (3.2-5.2); ALKALINE PHOSPHATASE 81 U/L (35-104); ALT/SGPT 22 U/L (7.0-40); AST/SGOT 17 U/L (<34); BILIRUBIN,TOTAL 0.3 MG/DL (0.3-1.2); BLOOD UREA NITROGEN 17 MG/DL (9-23); CALCIUM LEVEL 9.8 MG/DL (8.3-10.6); CARBON DIOXIDE LEVEL 26 MMOL/L (20-31); CHLORIDE LEVEL 106 MMOL/L (98-107); CREATININE FOR GFR 0.72 MG/DL (0.55-1.30); GLOMERULAR FILTRATION RATE > 60.0 (>45); GLUCOSE, FASTING 197 MG/DL (74-106); POTASSIUM SERUM 5.2 MMOL/L (3.5-5.1); SODIUM LEVEL 137 MMOL/L (136-145); TOTAL PROTEIN 7.6 G/DL (5.7-8.2)
[2024-02-19 15:00] LABS: FERRITIN 115.7 NG/ML (7.3-270.7)
== END ==
LOC: M PLALAB 10:03
PROVIDERS: ATTEND Family Medicine
DX: E10.42 Type 1 diabetes mellitus with diabetic polyneuropathy (principal); I50.32 Chronic diastolic (congestive) heart failure; D50.9 Iron deficiency anemia, unspecified

== ENCOUNTER → 2024-04-13 | Outpatient (CLI) | payer MEDICARE, MEDICAID ==
[~2024-04-13] MED LIST changes: -SUMA6PEN3 SC; +SUMA6PEN5 SC
[2024-04-13 11:49] LABS: BASO # 0.2 10^3/uL (0.0-0.2); BASO % 2.3 % (0.0-1.0); EOS # 0.4 10^3/uL (0.0-0.5); EOS % 5.6 % (0.0-3.0); HEMOGLOBIN 12.9 g/dl (12.0-15.5); LYMPH % 29.7 % (24.0-44.0); MEAN CORPUSCULAR HEMOGLOBIN 28.9 pg (27.0-33.0); MEAN CORPUSCULAR HGB CONC 30.7 g/dl (32.0-36.5); MEAN CORPUSCULAR VOLUME 94.2 fl (80.0-96.0); MONO # 0.4 10^3/uL (0.0-0.8); NEUTROPHILS # 3.7 10^3/uL (1.5-8.5); NEUTROPHILS % 56.1 % (36.0-66.0); PLATELET COUNT, AUTOMATED 325 10^3/uL (150-450); RED BLOOD COUNT 4.46 10^6/uL (4.00-5.40); WHITE BLOOD COUNT 6.7 10^3/uL (4.0-10.0)
[2024-04-13 12:14] LABS: ALBUMIN 3.2 G/DL (3.2-5.2); ALKALINE PHOSPHATASE 82 U/L (35-104); ALT/SGPT 17 U/L (7.0-40); AST/SGOT 14 U/L (<34); BILIRUBIN,TOTAL 0.2 MG/DL (0.3-1.2); BLOOD UREA NITROGEN 16 MG/DL (9-23); CARBON DIOXIDE LEVEL 28 MMOL/L (20-31); CHLORIDE LEVEL 107 MMOL/L (98-107); CREATININE FOR GFR 0.73 MG/DL (0.55-1.30); FERRITIN 95.9 NG/ML (7.3-270.7); GLOMERULAR FILTRATION RATE > 60.0 (>45); GLUCOSE, FASTING 133 MG/DL (74-106); POTASSIUM SERUM 4.9 MMOL/L (3.5-5.1); SODIUM LEVEL 143 MMOL/L (136-145); TOTAL PROTEIN 6.7 G/DL (5.7-8.2)
[2024-04-13 12:19] LABS: HEMOGLOBIN A1c 6.9 % (4.0-6.0)
== END ==
LOC: M PLALAB 07:16
PROVIDERS: ATTEND Family Medicine
DX: D50.9 Iron deficiency anemia, unspecified (principal); E10.42 Type 1 diabetes mellitus with diabetic polyneuropathy

== ENCOUNTER → 2024-04-16 | Outpatient (REF) | payer MEDICARE, MEDICAID ==
[~2024-04-16] MED LIST changes: +DOXY-442 PO; -DOXY100C82 PO
== END ==
LOC: M SFHCPLAZ 10:09
PROVIDERS: ATTEND Family Medicine
DX: J06.9 Acute upper respiratory infection, unspecified (principal)

== ENCOUNTER → 2024-04-26 | Outpatient (CLI) | payer MEDICARE, MEDICAID | LOC: M WHC 07:40 | PROVIDERS: ATTEND Family Medicine | DX: Z12.31 Encounter for screening mammogram for malignant neoplasm of breast (principal) ==

== ENCOUNTER → 2024-05-07 | Outpatient (CLI) | payer MEDICARE, MEDICAID ==
[2024-05-07 13:59] LABS: HEMATOCRIT 40.8 % (36.0-47.0); MEAN CORPUSCULAR HEMOGLOBIN 29.8 pg (27.0-33.0); MEAN CORPUSCULAR HGB CONC 31.9 g/dl (32.0-36.5); MEAN CORPUSCULAR VOLUME 93.6 fl (80.0-96.0); PLATELET COUNT, AUTOMATED 317 10^3/uL (150-450); RED BLOOD COUNT 4.36 10^6/uL (4.00-5.40); WHITE BLOOD COUNT 6.7 10^3/uL (4.0-10.0)
[2024-05-07 14:04] LABS: ERYTHROCYTE SEDIMENTATION RATE 23 mm/hr (0-30)
[2024-05-07 14:26] LABS: C REACTIVE PROTEIN QUANTITATIV < 0.50 MG/DL (<1.0)
[2024-05-07 14:28] LABS: ALBUMIN 3.3 G/DL (3.2-5.2); ALKALINE PHOSPHATASE 73 U/L (35-104); ALT/SGPT 22 U/L (7.0-40); AST/SGOT 20 U/L (<34); BILIRUBIN,TOTAL 0.2 MG/DL (0.3-1.2); BLOOD UREA NITROGEN 15 MG/DL (9-23); CARBON DIOXIDE LEVEL 27 MMOL/L (20-31); CHLORIDE LEVEL 104 MMOL/L (98-107); CREATININE FOR GFR 0.74 MG/DL (0.55-1.30); GLOMERULAR FILTRATION RATE > 60.0 (>45); GLUCOSE, FASTING 120 MG/DL (74-106); POTASSIUM SERUM 4.9 MMOL/L (3.5-5.1); RHEUMATOID FACTOR QUANT < 3.5 IU/ML (<14); SODIUM LEVEL 138 MMOL/L (136-145); TOTAL PROTEIN 6.7 G/DL (5.7-8.2)
[2024-05-07 14:30] LABS: FREE T4 0.99 NG/DL (0.89-1.76); THYROID STIMULATING HORMONE 2.185 uIU/ML (0.55-4.78)
[2024-05-07 15:08] LABS: HEMOGLOBIN A1c 7.1 % (4.0-6.0)
[2024-05-11 07:19] LABS: ANA PATTERN Nuclear, Homogeneous (NEGATIVE); ANA SCREEN, IFA POSITIVE (NEGATIVE); ANA TITER 1:40 titer (<1:40)
== END ==
LOC: M PLALAB 10:56
DX: R19.5 Other fecal abnormalities (principal); R53.82 Chronic fatigue, unspecified; Z79.899 Other long term (current) drug therapy

== ENCOUNTER → 2024-05-12 | Outpatient (CLI) | payer MEDICARE, MEDICAID ==
[~2024-05-12] MED LIST changes: +GASTROGRAFIN SOLUTION 30ML As Ordered ONE; +ISOVUE-370 76% 100ML VIAL As Ordered ONE
== END ==
LOC: M RAD 08:18
DX: R19.5 Other fecal abnormalities (principal); Z98.84 Bariatric surgery status; Z90.49 Acquired absence of other specified parts of digestive tract
CPT/HCPCS: 74177; Q9963; Q9967

== ENCOUNTER → 2024-05-20 | Outpatient (CLI) | payer MEDICARE, MEDICAID ==
[~2024-05-20] MED LIST changes: -GASTROGRAFIN SOLUTION 30ML As Ordered ONE; -ISOVUE-370 76% 100ML VIAL As Ordered ONE; +ISOVUE-370 76% 100ML VIAL ONE
== END ==
LOC: M PLAIMG 12:40
DX: R41.89 Other symptoms and signs involving cognitive functions and awareness (principal)
CPT/HCPCS: 70470; Q9967

== ENCOUNTER → 2024-06-18 | Outpatient (CLI) | payer MEDICARE, MEDICAID ==
[~2024-06-18] MED LIST changes: +E-Z-GAS II EFFERVESCENT PACKET (SODIUM BICARB./CITRIC ACID/SIMETHICONE) As Ordered ONE; +E-Z-HD 98% w/w 340GM SUSP BTL As Ordered ONE; +E-Z-PAQUE 96% w/w SUSP 176GM BTL As Ordered ONE; -GLUC1KIT IM; +GLUC1VIA14 IM; -ISOVUE-370 76% 100ML VIAL ONE; -PREG50CA PO; +PREG50CA87 PO; -SUCR1ORA2 PO; +SUCR1ORA20 PO
== END ==
LOC: M RAD 08:41
DX: R13.10 Dysphagia, unspecified (principal); K44.9 Diaphragmatic hernia without obstruction or gangrene; K21.9 Gastro-esophageal reflux disease without esophagitis

== ENCOUNTER → 2024-06-29 | Outpatient (CLI) | payer MEDICARE ==
[~2024-06-29] MED LIST changes: +AMMO12CR4 TOP; -AMMO12CR7 TOP; -E-Z-GAS II EFFERVESCENT PACKET (SODIUM BICARB./CITRIC ACID/SIMETHICONE) As Ordered ONE; -E-Z-HD 98% w/w 340GM SUSP BTL As Ordered ONE; -E-Z-PAQUE 96% w/w SUSP 176GM BTL As Ordered ONE; -FLAX10005 PO; +FLAX1CAP6 PO
[2024-06-29 10:20] LABS: HEMATOCRIT 42.9 % (36.0-47.0)
[2024-06-29 10:21] LABS: BASO # 0.1 10^3/uL (0.0-0.2); BASO % 2.2 % (0.0-1.0); EOS # 0.4 10^3/uL (0.0-0.5); EOS % 7.3 % (0.0-3.0); HEMATOCRIT 43.5 % (36.0-47.0); HEMOGLOBIN 13.9 g/dl (12.0-15.5); LYMPH % 34.5 % (24.0-44.0); MEAN CORPUSCULAR HEMOGLOBIN 30.2 pg (27.0-33.0); MEAN CORPUSCULAR VOLUME 94.6 fl (80.0-96.0); MONO # 0.3 10^3/uL (0.0-0.8); MONO % 5.1 % (2.0-8.0); NEUTROPHILS % 50.6 % (36.0-66.0); PLATELET COUNT, AUTOMATED 359 10^3/uL (150-450); WHITE BLOOD COUNT 5.9 10^3/uL (4.0-10.0)
[2024-06-29 10:55] LABS: ALBUMIN 3.3 G/DL (3.2-5.2); ALKALINE PHOSPHATASE 70 U/L (35-104); ALT/SGPT 19 U/L (7.0-40); AST/SGOT 13 U/L (<34); BILIRUBIN,TOTAL 0.2 MG/DL (0.3-1.2); BLOOD UREA NITROGEN 15 MG/DL (9-23); CALCIUM LEVEL 8.8 MG/DL (8.3-10.6); CARBON DIOXIDE LEVEL 25 MMOL/L (20-31); CHLORIDE LEVEL 107 MMOL/L (98-107); CHOLESTEROL LEVEL 200 MG/DL (<200); CHOLESTEROL RISK RATIO 2.91 (<5); CPK CREATINE PHOSPHOKINASE 46 U/L (34-145); CREATININE FOR GFR 0.67 MG/DL (0.55-1.30); GLOMERULAR FILTRATION RATE > 90.0 (>45); GLUCOSE, FASTING 215 MG/DL (74-106); HDL CHOLESTEROL 68.5 MG/DL (>40); LDL CHOLESTEROL 116.5 MG/DL (<100); NON-HDL-C 131.5 MG/DL; POTASSIUM SERUM 4.7 MMOL/L (3.5-5.1); PTH INTACT 116.2 PG/ML (18.5-88.0); SODIUM LEVEL 141 MMOL/L (136-145); TOTAL PROTEIN 6.3 G/DL (5.7-8.2); TRIGLYCERIDES LEVEL 75 MG/DL (<150)
[2024-06-29 10:57] LABS: TOTAL 25(OH) VITAMIN D 41.6 NG/ML (20.0-100.0); VITAMIN B12 LEVEL 990 PG/ML (211-911)
[2024-06-29 10:58] LABS: FERRITIN 82.8 NG/ML (7.3-270.7)
== END ==
LOC: M PLALAB 08:50
PROVIDERS: ATTEND Family Medicine
DX: R53.82 Chronic fatigue, unspecified (principal); E55.9 Vitamin D deficiency, unspecified; E78.2 Mixed hyperlipidemia; E53.8 Deficiency of other specified B group vitamins; D50.9 Iron deficiency anemia, unspecified; Z98.84 Bariatric surgery status

== ENCOUNTER → 2024-08-03 | Outpatient (CLI) | payer MEDICARE, MEDICAID ==
[2024-08-03 10:55] LABS: HEMATOCRIT 42.7 % (36.0-47.0)
[2024-08-03 11:06] LABS: BASO # 0.2 10^3/uL (0.0-0.2); BASO % 2.9 % (0.0-1.0); EOS # 0.4 10^3/uL (0.0-0.5); EOS % 6.7 % (0.0-3.0); HEMATOCRIT 43.6 % (36.0-47.0); HEMOGLOBIN 13.6 g/dl (12.0-15.5); LYMPH # 1.7 10^3/uL (1.5-5.0); LYMPH % 30.7 % (24.0-44.0); MEAN CORPUSCULAR HEMOGLOBIN 29.8 pg (27.0-33.0); MEAN CORPUSCULAR HGB CONC 31.2 g/dl (32.0-36.5); MEAN CORPUSCULAR VOLUME 95.4 fl (80.0-96.0); MONO # 0.4 10^3/uL (0.0-0.8); MONO % 6.3 % (2.0-8.0); NEUTROPHILS # 2.9 10^3/uL (1.5-8.5); NEUTROPHILS % 53.2 % (36.0-66.0); PLATELET COUNT, AUTOMATED 345 10^3/uL (150-450); RED BLOOD COUNT 4.57 10^6/uL (4.00-5.40); WHITE BLOOD COUNT 5.5 10^3/uL (4.0-10.0)
[2024-08-03 11:11] LABS: ERYTHROCYTE SEDIMENTATION RATE 33 mm/hr (0-30)
[2024-08-03 11:33] LABS: CORTISOL AM 13.3 UG/DL (4.3-22.4)
[2024-08-03 11:35] LABS: ALBUMIN 3.5 G/DL (3.2-5.2); ALKALINE PHOSPHATASE 81 U/L (35-104); ALT/SGPT 18 U/L (7.0-40); AST/SGOT 25 U/L (<34); BILIRUBIN,TOTAL 0.2 MG/DL (0.3-1.2); BLOOD UREA NITROGEN 15 MG/DL (9-23); C REACTIVE PROTEIN QUANTITATIV 0.67 MG/DL (<1.0); CALCIUM LEVEL 9.1 MG/DL (8.3-10.6); CARBON DIOXIDE LEVEL 26 MMOL/L (20-31); CHLORIDE LEVEL 105 MMOL/L (98-107); CHOLESTEROL LEVEL 226 MG/DL (<200); CHOLESTEROL RISK RATIO 2.51 (<5); CREATININE FOR GFR 0.75 MG/DL (0.55-1.30); GLOMERULAR FILTRATION RATE > 90.0 (>45); GLUCOSE, FASTING 88 MG/DL (74-106); HDL CHOLESTEROL 89.8 MG/DL (>40); NON-HDL-C 136.2 MG/DL; POTASSIUM SERUM 5.8 MMOL/L (3.5-5.1); SODIUM LEVEL 142 MMOL/L (136-145); TOTAL PROTEIN 6.7 G/DL (5.7-8.2); TRIGLYCERIDES LEVEL 76 MG/DL (<150)
[2024-08-03 11:37] LABS: FERRITIN 88.4 NG/ML (7.3-270.7); TOTAL 25(OH) VITAMIN D 48.9 NG/ML (20.0-100.0); VITAMIN B12 LEVEL 1230 PG/ML (211-911)
[2024-08-03 11:55] LABS: PTH INTACT 106.9 PG/ML (18.5-88.0)
[2024-08-06 20:18] LABS: ENHANCED LIVER FIBROSIS SCORE 9.05 (<9.80)
[2024-08-07 14:52] LABS: SOLUBLE TRANSFERRIN RECEPTOR 1.46 mg/L (0.76-1.76)
== END ==
LOC: M PLALAB 07:50
PROVIDERS: ATTEND Family Medicine
DX: D50.9 Iron deficiency anemia, unspecified (principal); R53.82 Chronic fatigue, unspecified; E78.00 Pure hypercholesterolemia, unspecified

== ENCOUNTER → 2024-10-05 | Outpatient (CLI) | payer MEDICARE, MEDICAID | LOC: M SOG 06:56 | PROVIDERS: ATTEND Physician Assistant | DX: M25.572 Pain in left ankle and joints of left foot (principal) ==

== ENCOUNTER → 2024-10-07 | Outpatient (CLI) | payer MEDICARE, MEDICAID ==
[2024-10-07 15:36] LABS: BASO # 0.2 10^3/uL (0.0-0.2); BASO % 2.6 % (0.0-1.0); EOS # 0.4 10^3/uL (0.0-0.5); EOS % 6.9 % (0.0-3.0); LYMPH # 2.2 10^3/uL (1.5-5.0); LYMPH % 34.9 % (24.0-44.0); MONO # 0.4 10^3/uL (0.0-0.8); MONO % 6.8 % (2.0-8.0); NEUTROPHILS # 3.0 10^3/uL (1.5-8.5); NEUTROPHILS % 48.5 % (36.0-66.0); PLATELET COUNT, AUTOMATED 268 10^3/uL (150-450)
[2024-10-07 16:04] LABS: ALT/SGPT 21.0 U/L (7.0-40); AST/SGOT 19.0 U/L (<34); CALCIUM LEVEL 8.9 MG/DL (8.3-10.6); CARBON DIOXIDE LEVEL 23.0 MMOL/L (20-31); CHLORIDE LEVEL 106.0 MMOL/L (98-107); CHOLESTEROL LEVEL 195.0 MG/DL (<200); CHOLESTEROL RISK RATIO 2.38 (<5); CREATININE FOR GFR 0.79 MG/DL (0.55-1.30); GLOMERULAR FILTRATION RATE 85.6 (>45); LDL CHOLESTEROL 100.4 MG/DL (<100); NON-HDL-C 113.4 MG/DL; POTASSIUM SERUM 4.4 MMOL/L (3.5-5.1); SODIUM LEVEL 141.0 MMOL/L (136-145); TRIGLYCERIDES LEVEL 65.0 MG/DL (<150)
[2024-10-07 16:05] LABS: PTH INTACT 88.0 PG/ML (18.5-88.0)
[2024-10-07 16:06] LABS: TOTAL 25(OH) VITAMIN D 44.9 NG/ML (20.0-100.0); VITAMIN B12 LEVEL 1383.0 PG/ML (211-911)
[2024-10-14 10:24] LABS: RBC FOLATE 616.0 NG/ML (280-791)
== END ==
LOC: M PLALAB 13:07
PROVIDERS: ATTEND Family Medicine
DX: D50.9 Iron deficiency anemia, unspecified (principal); E55.9 Vitamin D deficiency, unspecified; E78.2 Mixed hyperlipidemia; E53.8 Deficiency of other specified B group vitamins

== ENCOUNTER 2025-01-03 08:26 | Day surgery (SDC) | payer MEDICARE, MEDICAID ==
[~2025-01-03] VITALS: Ht 162.6 cm; Wt 71.0 kg
[~2025-01-03 08:26] MED LIST changes: +LIDOCAINE W/EPINEPHrine 1% 20 ML VIAL XX ONE; +SODIUM BICARBONATE 8.4% INJ 50MEQ/50ML VIAL XX ONE
[2025-01-03] MEDS ORDERED: KETOROLAC 30 MG/ML 1 ML VIAL As Ordered ONE (08:49)
[2025-01-03] MEDS ORDERED: dexAMETHasone 4 MG/ML 1 ML VIAL As Ordered ONE (08:49)
[2025-01-03] MEDS ORDERED: ONDANSETRON 4MG/2ML VIAL As Ordered ONE (08:49)
[2025-01-03] MEDS ORDERED: LIDOCAINE 2% 100 MG/5 ML SDV (FOR ANES.) As Ordered ONE (08:49)
[2025-01-03] MEDS ORDERED: MIDAZOLAM INJ 2 MG/2 ML VIAL As Ordered ONE (08:49)
[2025-01-03] MEDS ORDERED: dexmedeTOMIDine (4 MCG/ML) 200 MCG/50 ML BTL As Ordered ONE (09:44)
[2025-01-03] MEDS ORDERED: ROCURONIUM BROMIDE 50MG/5ML VIAL As Ordered ONE (10:33)
[2025-01-03] MEDS ORDERED: SUCCINYLCHOLINE 100MG/5ML SYRINGE As Ordered ONE (10:33)
[2025-01-03] MEDS ORDERED: ACETAMINOPHEN 1000MG/100ML IV BAG As Ordered ONE (10:36)
[2025-01-03] MEDS: LIDOCAINE W/EPINEPHrine 1% 20 ML VIAL As Ordered ONE (10:37)
[2025-01-03] MEDS ORDERED: HYDROMORPHONE HCL 0.5 MG/0.5 ML SYRINGE IV PRN (11:00)
[2025-01-03] MEDS ORDERED: MORPHINE 2 MG/ML 1 ML VIAL IV PRN (11:00)
[2025-01-03] MEDS ORDERED: IPRATROPIUM 0.5 MG/ALBUTEROL 2.5 MG INH SOL UD 3 ML NEB ONE (11:10)
[2025-01-03] MEDS: ALBUTEROL SULFATE 2.5 MG/0.5 ML INH CONCENTRATE NEB SOLN NEB ONE (11:15)
[2025-01-03 11:41] VITALS: BP 123/61; TEMP 98.7; O2SAT 95
== END 2025-01-03 12:15 | disposition home or self-care (01) ==
LOC: M SDC 08:26
PROVIDERS: ATTEND Orthopaedic Surgery Hand Surgery
DX: M65.322 Trigger finger, left index finger (principal); M65.332 Trigger finger, left middle finger; J44.89 Other specified chronic obstructive pulmonary disease; E10.9 Type 1 diabetes mellitus without complications; E78.5 Hyperlipidemia, unspecified; K21.9 Gastro-esophageal reflux disease without esophagitis; D64.9 Anemia, unspecified; G43.909 Migraine, unspecified, not intractable, without status migrainosus; F41.9 Anxiety disorder, unspecified; F32.A Depression, unspecified; Z79.4 Long term (current) use of insulin; Z79.899 Other long term (current) drug therapy; Z79.51 Long term (current) use of inhaled steroids; K90.0 Celiac disease; Z86.73 Personal history of transient ischemic attack (TIA), and cerebral infarction without residual deficits; F17.290 Nicotine dependence, other tobacco product, uncomplicated; Z91.040 Latex allergy status
CPT/HCPCS: 26055; J0131; J0330; J1100; J2250; J2405; J2765; J3010

== ENCOUNTER → 2025-01-11 | Outpatient (CLI) | payer MEDICARE, MEDICAID ==
[~2025-01-11] MED LIST changes: -LIDOCAINE W/EPINEPHrine 1% 20 ML VIAL XX ONE; -SODIUM BICARBONATE 8.4% INJ 50MEQ/50ML VIAL XX ONE
[2025-01-11 11:07] LABS: BASO # 0.1 10^3/uL (0.0-0.2); BASO % 1.5 % (0.0-1.0); EOS # 0.3 10^3/uL (0.0-0.5); EOS % 3.8 % (0.0-3.0); LYMPH # 2.2 10^3/uL (1.5-5.0); LYMPH % 25.6 % (24.0-44.0); MONO # 0.4 10^3/uL (0.0-0.8); MONO % 4.9 % (2.0-8.0); NEUTROPHILS # 5.4 10^3/uL (1.5-8.5); NEUTROPHILS % 63.8 % (36.0-66.0); PLATELET COUNT, AUTOMATED 410 10^3/uL (150-450)
[2025-01-11 11:33] LABS: C REACTIVE PROTEIN QUANTITATIV 0.61 MG/DL (<1.0)
[2025-01-11 11:34] LABS: ALT/SGPT 14.0 U/L (7.0-40); AST/SGOT 15.0 U/L (<34); CALCIUM LEVEL 8.8 MG/DL (8.3-10.6); CARBON DIOXIDE LEVEL 28.0 MMOL/L (20-31); CHLORIDE LEVEL 105.0 MMOL/L (98-107); CHOLESTEROL LEVEL 178.0 MG/DL (<200); CHOLESTEROL RISK RATIO 2.37 (<5); CREATININE FOR GFR 0.82 MG/DL (0.55-1.30); GLOMERULAR FILTRATION RATE 81.3 (>45); LDL CHOLESTEROL 90.1 MG/DL (<100); NON-HDL-C 103.1 MG/DL; POTASSIUM SERUM 4.7 MMOL/L (3.5-5.1); SODIUM LEVEL 141.0 MMOL/L (136-145); TRIGLYCERIDES LEVEL 65.0 MG/DL (<150)
[2025-01-11 11:35] LABS: VITAMIN B12 LEVEL 1217.0 PG/ML (211-911)
== END ==
LOC: M PLALAB 08:22
PROVIDERS: ATTEND Family Medicine
DX: E55.9 Vitamin D deficiency, unspecified (principal); D50.9 Iron deficiency anemia, unspecified; E78.2 Mixed hyperlipidemia; E53.8 Deficiency of other specified B group vitamins; K90.0 Celiac disease; M35.9 Systemic involvement of connective tissue, unspecified

== ENCOUNTER → 2025-01-19 | Outpatient (CLI) | payer MEDICARE, MEDICAID ==
[~2025-01-19] MED LIST changes: +ISOVUE-370 76% 100 ML VIAL As Ordered ONE
== END ==
LOC: M RAD 08:04
PROVIDERS: ATTEND Family Medicine
DX: R19.5 Other fecal abnormalities (principal)
CPT/HCPCS: 74177; Q9967